=== PATIENT | male | born 1945 | race Caucasian/White ===

== ENCOUNTER 2020-01-19 09:40 | Inpatient (IN) | payer OTHER, MEDICARE ==
--- NOTE | 2020-01-19 11:56 | R.PREADM ---
SCREENING DATE AND TIME 01/19/2020 10:01 (CDT) ANTICIPATED REHAB ADMISSION DATE 01/21/2020 REFERRING FACILITY [facility] REFERRAL DATE AND TIME 01/19/2020 10:01 (CDT) ACUTE ADMIT DATE 01/10/2020 Previous Rehabilitation(s): No. 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 Eduardo Bajwa M.D. MR# [id number] NAME JUAN DIEGO OLIVEIRA ADDRESS [address] [place] [address] PHONE [facility] [id number] DATE OF 1945 AGE 74 SSN# [id number] GENDER male MARITAL STATUS RACE white PREF. LANGUAGE (IF NON-WOLOF) . Storeroom Supervisor is needed [facility] 01 - Home (private home/apt. board/care, assisted living, detention, transitional living) HOME TYPE AND DETAILS Type of home: single family house # of levels in the residence: 1 # of steps within the residence: 0 # of steps to enter the residence: 0 PRE-HOSPITAL LIVING WITH Family/Relatives FAMILY SUPPORT Yes PRIMARY FAMILY CONTACT NAME Pura George PRIMARY FAMILY CONTACT PHONE [phone] PHONE PRIMARY FAMILY CONTACT ON ADM.? no IS PRIMARY FAMILY CONTACT AUTH. REP.? no 1ST EMERGENCY CONTACT Pura George 1ST CONTACT PHONE [phone] PHONE 1ST CONTACT ON ADM. no IS 1ST CONTACT AUTH. REP.? no PHONE 2ND CONTACT ON ADM.? no PATIENT EMPLOYMENT STATUS Retired (for age) PATIENT EMPLOYER No Employer PAYOR INFORMATION: 1ST PAYOR NAME Medicare 1ST PAYOR PHONE 1ST PAYOR UPDATE DUE 01/19/2020 1ST PAYOR INJURY/ILLNESS DUE TO ACCIDENT? No ANOTHER [employer]IANCE PARTY RESPONSIBLE? No PRIMARY REHAB/ACUTE DIAGNOSIS: CABG ONSET DATE 01/19/2020 REHAB IMPAIRMENT CATEGORY (BONNY): 00 No BONNY does NOT meet 60% rule PRIMARY DIAGNOSIS-RELATED SURGERIES: BLADDER BIOPSY CHOLECYSTECTOMY TONSILLECTOMY SUMMARY OF ACUTE HOSPITALIZATION: Pt. is a 74 yo Right-handed white male. On 01/19/2020 he was admitted to [facility] with diagnosis CABG. His impairment category is Cardiac 09 - Select group. Pre-morbidly, Pt. was independent/mod-I in Balance, Self-Care, Communication, Endurance, Transfers Co ntrol, Social Cognition, Sphincter Control, Safety Awareness, and Locomotion; and he had good Safety Awareness, Balance, Social Cognition, Communication, Self-Care, and Endurance. Currently, he has deficits of Endurance, Self-Care, Sphincter Control, Transfers Control, Social Cogn ition, Safety Awareness, Locomotion, and Communication. Pt. is now referred to [facility] for acute in-patient rehabilitation in order to maximize patient's functional independence in activities of daily living, strength, ROM, and mobi lity. Patient has realistic goal of being discharged at assistance level 2-maxA to reside at Home with Fam amrik/Relatives. Juan Diego Joaquin is a 74 year old male that lives by his self independently next door to his family. He has no stairs to enter his home. He was independently living at home an d doing things for himself before having his surgery. He has tons of family support for when he goes home. He has a history of cancer, diabetes mellitus and hypertension. He was admitted to the hospital preparing for CABG last week at [facility]. Patient denied any current chest pain or shortness of breath, he denied any fever or upper respiratory tract symptoms. Patient has been admitted at [facility] and is hemodynamically stable with relatively stable labs. He is now medically stable but in need of 24 hour nursing, doctor supervision and oversight while receiving active and ongoing participate in 3 hours of therapy a day/15 hours per week and receive care with intensive interdisciplinary approach. PAST MEDICAL HISTORY CANCER DIABETES MELLITUS HYPERTENSION PAST SURGICAL HISTORY: BLADDER BIOPSY CHOLECYSTECTOMY TONSILLECTOMY MEDICATION ALLERGIES: CIPROFLOXACIN PEN (PENICILLINS) ENVIRONMENTAL ALLERGIES: - Substance Allergies None Known - Other Allergies None Known CODE STATUS: Full code WEIGHT/HEIGHT/BMI: WEIGHT 267 lbs HEIGHT 5' 7" BMI 41.8 DIET: - Diet Type Regular - Diet - Solid Texture Regular - Diet - Liquid Texture Regular - Tube Feed N/A SKIN DIAGRAM: Incision on Chest; extent - small; stage - NS(Not Stageable). Treatment - Per Physician's Orders. REVIEW OF SYSTEMS: - Gen Alert and awake Sitting in chair No apparent distress Oriented to: person, time, and place - Vital Signs Temperature: 97.9 F SBP/DBP: 121/73 Pulse: 76 Resp: 20 Vital signs stable, afebrile - CVS RRR VITAL SIGNS Temperature: 97.9 F SBP/DBP: 121/73 Pulse: 76 Resp: 20 Vital signs stable, afebrile MEDICATIONS/TREATMENT: Other- See attached MAR (Medication Administration Record). CURRENT SPHINCTER CONTROL: Pre-hospital bladder status: continent # of bladder accidents in the last 7 days prior to screenin Pre-hospital bowel status: continent # of bowel accidents in the last 7 days prior to screenin Last Bowel Movement Date: 01/19/2020 CURRENT LOCOMOTION STATUS: distance walked 3 feet DETAILED CURRENT FUNCTIONAL STATUS: - Bladder accident frequency: Ind - No accidents in the past 7 days - Bowel accident frequency: Ind - No accidents in the past 7 days - Walking score based on distance walked: 0(N/A) - Wheelchair score based on distance traveled: 1(<=50ft) QI SCORES: - Self-Care A. Eating 06-Independent B. Oral hygiene 01-Dependent C. Toileting hygiene 02-Substantial/maximal assistance E. Shower/bathe self 02-Substantial/maximal assistance F. Upper body dressing 03-Partial/moderate assistance G. Lower body dressing 88-Not attempted due to medical condition or safety concerns H. Putting on/taking off footwear 03-Partial/moderate assistance - Mobility A. Roll left and right 04-Supervision or touching assistance B. Sit to lying 03-Partial/moderate assistance C. Lying to sitting on side of bed 03-Partial/moderate assistance D. Sit to stand 02-Substantial/maximal assistance E. Chair/aif-lm-srlka transfer 02-Substantial/maximal assistance F. Toilet transfer 02-Substantial/maximal assistance G. Car transfer 88-Not attempted due to medical condition or safety concerns I. Walk 10 feet 88-Not attempted due to medical condition or safety concerns J. Walk 50 feet with two turns 88-Not attempted due to medical condition or safety concerns K. Walk 150 feet 88-Not attempted due to medical condition or safety concerns L. Walking 10 feet on uneven surfaces 88-Not attempted due to medical condition or safety concerns M. 1 step (curb) 88-Not attempted due to medical condition or safety concerns N. 4 steps 88-Not attempted due to medical condition or safety concerns O. 12 steps 88-Not attempted due to medical condition or safety concerns P. Picking up object 06-Independent R. Wheel 50 feet with two turns 88-Not attempted due to medical condition or safety concerns S. Wheel 150 feet 88-Not attempted due to medical condition or safety concerns - Bladder and Bowel Bladder continence 0-Always continent Bowel continence 0-Always continent - Endurance Fair - Balance Poor - Safety Awareness Fair CURRENT [facility]. DEFICITS: Mobility, Endurance, Balance, Safety Awareness, and Self-Care CURRENT / PREVIOUS ASSISTIVE DEVICES: 3-in-1 Commode [facility] Bed Oxygen Rolling Walker Shower Chair Tub Bench Wheelchair HISTORY OF FALLS. HAS THE PATIENT HAD TWO OR MORE FALLS IN THE PAST YEAR OR ANY FALL WITH INJURY IN T HE PAST YEAR?: No PRIOR SURGERY. DID THE PATIENT HAVE MAJOR SURGERY DURING THE 100 DAYS PRIOR TO ADMISSION?: Yes THERAPY NOTES FROM ACUTE CARE: Attached. SPECIAL NEEDS: - Safety Concerns Skin breakdown precautions needed due to skin breakdown risk PATIENT NEEDS ACTIVE AND ONGOING THERAPEUTIC INTERVENTION OF MULTIPLE THERAPY DISCIPLINES, INCLUDING: - Dietary and Nutrition Adequate Nutrition. Nutritional Education. Nutritional Supplements. PATIENT NEEDS CLOSE MEDICAL SUPERVISION BY A REHABILITATION PHYSICIAN FOR: Coordination of Treatment Team Post-Op Complications Wound Care PATIENT REQUIRES 24X7 REHAB NURSING FOR MEDICAL AND FUNCTIONAL MGT. OF THE FOLLOWING DEFICITS: Disease Management Medication Management Patient/Family Education Providing Safe Environment Skin Integrity PATIENT REQUIRES INTENSIVE, COORDINATED INTERDISCIPLINARY APPROACH TO REHAB: Arranging Home Equipment/Services Discharge Planning Family Intervention/Training Staff Software Engineer/Case Management PATIENT REHAB POTENTIAL: Stephenie OLIVEIRA is able and expected to receive 3 hours of individualized therapy daily on at least 5 of e very 7 days Stephenie OLIVEIRA's prognosis for significant practical improvement within a reasonable period of time appea rs Fair Expected level of measurable improvement will be of a practical value to Stephenie OLIVEIRA's functional capa city or adaptations to impairments Has a viable Discharge Plan Medically appropriate; condition is sufficiently stable to participate in intensive rehab program DISCHARGE PLAN: - Estimated Length of Stay (days) 14. - Consensus on plan Discharge plan has been discussed with primary caregiver. Patient/Family is in agreement with the melly n. Primary caregiver is in agreement with the plan. - Patient/Family Goals Return home with assistance. - Planned Living Setting Upon Discharge Home, to live with Family/Relatives. Transitional Living. RECOMMENDED CARE LEVEL: IRF RECOMMENDATION DETAILS: Recommended Admission to Comprehensive Rehabilitation Program to Increase Functional [place] SCREENER'S COMPLETENESS CONFIRMATION: - Screening Confirmation The patient data collection on this preadmission screening form is finished PHYSICIANS REVIEW AND ADMISSION DETERMINATION Admit - Based on my review of the Pre-Admission Screening results, in my medical judgment and experie nce, I concur with the findings and recommend admission to [facility], as this patient requires an IRF level of care. SIGNATURE PANEL: Clinical Liaison - [electronically] signed by Ryland Salazar on 01/19/2020 at 11:05 (CDT) Overhead Distribution Engineer - [electronically] signed by Margarita Wolfe RN on 01/19/2020 at 11:55 (CDT) Physician Reviewer - /___/ :___
--- OUTSIDE RECORDS SUMMARY | 2020-01-19 15:54 | XMS REPORT ---
:1945 [facility] Address [address] [place] [address] Dr. Bell [address] [place] [id number] Care Team Providers Name Role Phone Unavailable Unavailable Unavailable Problems This patient has no known problems. Allergies, Adverse Reactions, Alerts This patient has no known allergies or adverse reactions. Medications This patient has no known medications.
--- OUTSIDE RECORDS SUMMARY | 2020-01-19 15:55 | XMS REPORT | Summary of Care ---
:1945 Author Organization [facility] Address [address] [place] [address] Care Team Providers Name Role Phone Franklyn Garay Primary Care Provider Encounter Details Date Type Department Care Team Description 01/05/2020 Orders Only [facility] Doctor Unassigned, No 301 [facility] [place] [address] [address] [place] [address] Allergies Active Allergy Reactions Severity Noted Date Comments Ciprofloxacin Rash 09/17/2019 Penicillins Rash 09/17/2019 documented as of this encounter (statuses as of 01/05/2020) Medications Medication Sig Dispensed Refills Start Date End Date Status finasteride 5 mg 0 08/25/2019 Active tablet gemfibrozil 600 mg 0 08/25/2019 Active tablet glipiZIDE 10 mg 0 08/25/2019 Active tablet LANTUS U-100 INSULIN 0 08/25/2019 Active 100 unit/mL solution lisinopril-hydrochlor 0 08/25/2019 Active othiazide 20-25 mg per tablet metFORMIN 500 mg 0 08/25/2019 Active tablet omeprazole 20 mg 0 08/25/2019 Active capsule tamsulosin 0.4 mg 24 0 08/25/2019 Active hr capsule flu vaccine 66 yrs PHARMACIST 0 07/30/2019 Active and up 180 mcg/0.5 mL ADMINISTERED IMMUNIZATION ADMINISTERED AT TIME OF DISPENSING aspirin 81 mg EC Take 1 tablet by 0 10/18/2019 Active tabletIndications: mouth daily. Aortic stenosis, moderate atorvastatin 20 mg Take 1 tablet by 90 tablet 3 10/18/2019 Active tabletIndications: mouth daily. Coronary artery calcification carvediloL 6.25 mg Take 1 tablet by 60 tablet 3 12/15/2019 Active tabletIndications: mouth 2 (two) times Essential daily with meals. hypertension documented as of this encounter (statuses as of 01/05/2020) Active Problems Not on filedocumented as of this encounter (statuses as of 01/05/2020) Immunizations Name Administration Dates Next Due Influenza High Dose 08/03/2019 documented as of this encounter Social History Tobacco Use Types Packs/Day Years Used Date Former Smoker Cigarettes 41 Quit: 11/03/2001 Smokeless Tobacco: Never Used Sex Assigned at Date Recorded Not on file Job Start Date Occupation Industry Not on file Not on file Not on file Travel History Travel Start Travel End No recent travel history available. documented as of this encounter Last Filed Vital Signs Not on filedocumented in this encounter Plan of Treatment Date Type Specialty Care Team Description 01/05/2020 Appointment Cardiac Pocket Setter Lockstitch Provider, Allyson Cardiac 2, Clc Cardiac Proc Room 02/16/2020 Office Visit Cardiology Chary Martinez MD [address] [place] [address] [phone] 04/18/2020 Office Visit Cardiology Chary Martinez MD [address] [place] [address] [place] [address] [phone] Health Maintenance Due Date Last Done Comments HEPATITIS C (HCV) SCREEN 1945 URINE MICROALBUMIN 1956 DTaP,Tdap,and Td Vaccines (1 - Tdap) 1957 Zoster Recombinant Vaccine (SHINGRIX) (1 of 2) 1996 Medicare Wellness Visit 2011 PNEUMOCOCCAL VACCINES 65+ (1 of 2 - PCV13) 2011 HgA1C 05/25/2020 11/25/2019 EYE EXAM 07/04/2020 07/04/2019 FOOT EXAM 11/24/2020 11/24/2019 CREATININE (SERUM) 11/25/2020 11/25/2019 LDL-C 11/25/2020 11/25/2019 COLONOSCOPY 11/03/2027 11/03/2017 INFLUENZA VACCINE Completed 08/03/2019 documented as of this encounter Procedures Procedure Name Priority Date/Time Associated Diagnosis Comments ASSIGNMENT OF BENEFITS Routine 01/05/2020 5:26 AM 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 Medicare A & B esent [id number] DEO [place]RIQUE[place] [phone] [facility] [id number] 2018-Pre [address] Medicare HEALTHCARE HEALTHCARE sent [id number] Supplement MEDICARE [place] SUPPLEMENT DEO MALAGON [id number] documented as of this encounter
--- OUTSIDE RECORDS SUMMARY | 2020-01-19 15:55 | XMS REPORT | Summary of Care ---
:1945 Author Organization [facility] Address [address] [place] [address] Care Team Providers Name Role Phone Franklyn Garay Primary Care Provider Encounter Details Date Type Department Care Team Description 11/09/2018 Orders Only [facility] Doctor Unassigned, No 301 [facility] [place] [address] [address] [place] [address] Allergies Active Allergy Reactions Severity Noted Date Comments Ciprofloxacin Rash 09/17/2019 Penicillins Rash 09/17/2019 documented as of this encounter (statuses as of 11/17/2019) Medications No known medicationsdocumented as of this encounter (statuses as of 11/17/2019) Active Problems Not on filedocumented as of this encounter (statuses as of 11/17/2019) Social History Tobacco Use Types Packs/Day Years Used Date Never Assessed Sex Assigned at Date Recorded Not on file Job Start Date Occupation Industry Not on file Not on file Not on file Travel History Travel Start Travel End No recent travel history available. documented as of this encounter Last Filed Vital Signs Not on filedocumented in this encounter Plan of Treatment Date Type Specialty Care Team Description 11/18/2019 Office Visit Pulmonary Disease Rupa Winn DO [address] [place] [phone] 12/15/2019 Office Visit Cardiology Chary Martinez MD [address] [place] [address] [place] [address] [phone] 04/18/2020 Office Visit Cardiology Chary Martinez MD [address] [place] [address] [place] [address] [phone] Health Maintenance Due Date Last Done Comments HEPATITIS C (HCV) SCREEN 1945 HgA1C 1946 CREATININE (SERUM) 1956 EYE EXAM 1956 LDL-C 1956 URINE MICROALBUMIN 1956 DTaP,Tdap,and Td Vaccines (1 - Tdap) 1957 FOOT EXAM 1964 COLONOSCOPY 1996 Zoster Recombinant Vaccine (SHINGRIX) (1 of 2) 1996 Medicare Wellness Visit 2011 PNEUMOCOCCAL VACCINES 65+ (1 of 2 - PCV13) 2011 INFLUENZA VACCINE Completed 08/03/2019 documented as of this encounter Procedures Procedure Name Priority Date/Time Associated Diagnosis Comments HEART STATION Routine 11/09/2018 12:01 AM PHARMACOLOGIC WORKSHEET PHYSICAL BIOCHEMIST (NUCLEAR EKG) documented in this encounter Results Not on filedocumented in this encounter Insurance Payer Benefit Plan / Subscriber ID Effective Phone Address Type Group Dates MEDICARE MEDICARE PART xxxxxxxxxxx 2011-Pr [phone] [address] Medicare A & B esent [id number] DEO ENRIQUE[place] [phone] [facility] [id number] 2018-Pre [address] Medicare HEALTHCARE HEALTHCARE sent [id number] Supplement MEDICARE [place] SUPPLEMENT [place]ON [id number] documented as of this encounter
--- OUTSIDE RECORDS SUMMARY | 2020-01-19 15:55 | XMS REPORT | Summary of Care ---
:1945 Author Organization [facility] Address [address] [place] [address] Care Team Providers Name Role Phone Franklyn Garay Primary Care Provider Reason for Referral (Routine) Status Reason Specialty Diagnoses / Procedures Referred By Referred To Contact Contact New Request Cardiology Diagnoses Essential hypertension Coronary artery calcification Hyperlipidemia, unspecified hyperlipidemia type Obesity (BMI 30-39.9) WOLFE (dyspnea on exertion) Aortic stenosis, moderate Chary Martinez, Type 2 diabetes mellitus without complication, without long-term current use of insulin Abnormal nuclear stress test MD Procedures Cardiac Cath Request for Service (Cardiology Use Only) [address] [place] [address] [address] [place] [address] Reason for Visit Reason Comments Follow-up Testing follow up Encounter Details Date Type Department Care Team Description 12/15/2019 Office Visit [facility] Chary Martinez MD WOLFE (dyspnea on exertion) (Primary Dx); Cardiology- [address] Essential hypertension; [address] [place] [address] Coronary artery calcification; [facility] [address] Hyperlipidemia, unspecified hyperlipidemia type; [place] [address] Obesity (BMI 30-39.9); [address] Aortic stenosis, moderate; [phone] Type 2 diabetes mellitus without complication, without long-term current use of insulin; Abnormal nuclear stress test; Abnormal coagulation profile Allergies Active Allergy Reactions Severity Noted Date Comments Ciprofloxacin Rash 09/17/2019 Penicillins Rash 09/17/2019 documented as of this encounter (statuses as of 12/15/2019) Medications Medication Sig Dispensed Refills Start Date End Date Status genaroide 5 mg 0 08/25/2019 Active tablet gemfibrozil [...] as of this encounter (statuses as of 12/15/2019) Active Problems Not on filedocumented as of this encounter (statuses as of 12/15/2019) Immunizations Name Administration Dates Next Due Influenza [...] of this encounter Last Filed Vital Signs Vital Sign Reading Time Taken Comments Blood Pressure 167/89 12/15/2019 9:22 AM CASE RESOURCE MANAGER Pulse 98 12/15/2019 9:18 AM CASE RESOURCE MANAGER Temperature - - Respiratory Rate 18 12/15/2019 9:18 AM CASE RESOURCE MANAGER Oxygen Saturation 95% 12/15/2019 9:18 AM CASE RESOURCE MANAGER Inhaled Oxygen Concentration - - Weight 114.3 kg (251 lb 14.4 oz) 12/15/2019 9:18 AM CASE RESOURCE MANAGER Height 170.2 cm (5' 7") 12/15/2019 9:18 AM CASE RESOURCE MANAGER Body Mass Index 39.45 12/15/2019 9:18 AM CASE RESOURCE MANAGER documented in this encounter Progress Notes Chary Martinez MD - 12/15/2019 9:20 AM CST CARDIOLOGY CLINIC NOTE 12/15/2019 Reason for Referral/Presenting Complaint: WOLFE, aortic stenosis, coronary artery calcification PCP: Franklyn Garay History of Present Illness: Abdirashid Damon is a 74 years old male with history of obesity, HTN, HLD, DM, former smoker, and COPD. For the past year he has noted progressive SOB with activity such as walking 100 yards. Gained 10 lbs in 1 year. No edema or orthopnea. Has been treated for COPD. Taking ASA. CT chest showed coronary artery calcification. NO chest pain. Used to take statins but not only on fibrates. Nuclear stress test was of poor quality. Possible small defect. LVEF in 40%. His BP has been elevated. LDL 18. Cardiovascular testing: EKG: Normal sinus rhythm. Normal EKG. Echocardiogram: There is mild concentric left ventricular hypertrophy. Ejection Fraction=55-60%. Diastolic function is impaired relaxation. The left ventricular wall motion is normal. Moderate valvular aortic stenosis. Nuclear 11/2019 A small and mild partially reversible anterior perfusion defect, likely attenuation artifact although ischemia cannot be completely excluded. Borderline reduced ejection fraction with borderline global hypokinesis. Review of Systems: General: (-) fever, (-) chills, (-) weight change, (-) dizziness, (-) fatigue Skin: (-) rash HEENT: (-) headache, (-) change in vision Neck: (-) difficulty swallowing Heme: negative Resp: (-) cough, (+) dyspnea on exertion Cardio: (-) chest pain, (-) palpitations, (-) syncope GI: (-) vomiting, (-) diarrhea : negative Endo: (+) diabetes, (-) thyroid disease Neuro: (-) numbness, (-) tingling, (-) weakness Back: (-) pain SHARON: (-) muscle pain, (-) claudication Psych: (-) anxiety, (-) depression Past Medical History: Past Medical History: Diagnosis Date Cancer Diabetes mellitus Hypertension Current Medications: Current Outpatient Medications Medication Sig Dispense Refill carvediloL 6.25 mg tablet Take 1 tablet by mouth 2 (two) times daily with meals. 60 tablet 3 aspirin 81 mg EC tablet Take 1 tablet by mouth daily. atorvastatin 20 mg tablet Take 1 tablet by mouth daily. 90 tablet 3 finasteride 5 mg tablet gemfibrozil 600 mg tablet glipiZIDE 10 mg tablet LANTUS U-100 INSULIN 100 unit/mL solution lisinopril-hydrochlorothiazide 20-25 mg per tablet metFORMIN 500 mg tablet omeprazole 20 mg capsule tamsulosin 0.4 mg 24 hr capsule flu vaccine 65 yrs and up 180 mcg/0.5 mL PHARMACIST ADMINISTERED IMMUNIZATION ADMINISTERED AT TIME OF DISPENSING 0 No current facility-administered medications for this visit. Social History: Social History Socioeconomic History Marital status: Spouse name: Not on file Number of children: Not on file Years of education: Not on file Highest education level: Not on file Occupational History Not on file Social Needs Financial resource strain: Not on file Food insecurity: Worry: Not on file Inability: Not on file Transportation needs: Medical: Not on file Non-medical: Not on file Tobacco Use Smoking status: Former Smoker Years: 40.00 Types: Cigarettes Last attempt to quit: 11/03/2001 Years since quittin.1 Smokeless tobacco: Never Used Substance and Sexual Activity Alcohol use: Not on file Drug use: Not on file Sexual activity: Not on file Lifestyle Physical activity: Days per week: Not on file Minutes per session: Not on file Stress: Not on file Relationships Social connections: Talks on phone: Not on file Gets together: Not on file Attends episcopalian service: Not on file Active member of club or organization: Not on file Attends meetings of clubs or organizations: Not on file Relationship status: Not on file Intimate partner violence: Fear of current or ex partner: Not on file Emotionally abused: Not on file Physically abused: Not on file Forced sexual activity: Not on file Other Topics Concern Not on file Social History Narrative Not on file Family History Family History Problem Relation Age of Onset [place] (myocardial infarction) Mother 60s Physical Examination: BP (!) 167/89 | Pulse 98 | Resp 18 | Ht 5' 7" (1.702 m) | Wt 251 lb 14.4 oz (114.3 kg) | SpO2 95% | BMI 39.45 kg/m Constitutional: alert and oriented x 3 (person, place and date/time); no apparent distress, obese ENT: normocephalic atraumatic, supple, no lymphadenopathy, no bruits, no JVD Lungs: clear to auscultation bilaterally Cardiovascular: S1, S2 normal, regular; 2/6 SM RUSB GI: soft; non-tender; non-distended; normoactive bowel sounds : not examined Musculoskeletal: Extremities: no clubbing, cyanosis, or edema Skin: no rashes Neuro: no focal deficits Assessment/Plan: ICD-10-CM ICD-9-CM 1. WOLFE (dyspnea on exertion) R06.09 786.09 2. Essential hypertension I10 401.9 3. Coronary artery calcification I25.10 414.00 I25.84 414.4 4. Hyperlipidemia, unspecified hyperlipidemia type E78.5 272.4 5. Obesity (BMI 30-39.9) E66.9 278.00 6. Aortic stenosis, moderate I35.0 424.1 7. Type 2 diabetes mellitus without complication, without long-term current use of insulin E11.9 250.00 8. Abnormal nuclear stress test R94.39 794.39 WOLFE--could be multifactorial including obesity, COPD, aortic stenosis, diastolic dysfunction, etc. Significant risk factors--former smoking, age, HTN, HLD, DM, etc. Lexiscan nuclear stress test is of poor quality--questionable ischemia. Discussed [facility] for definitive diagnosis. Risk and benefit discussed. Will schedule. Moderate aortic stenosis--Will get ECHO annually. Currently no indication for valve intervention. Coronary artery calcification--Will continue ASA 81 mg daily. Recommend to add lipitor 20 mg daily. HTN--controlled. Continue lisinopril/HCTZ. Obesity--discussed weight loss. HLD--On gemfibrozil. Consider change to fenofibrate if start on lipitor. Patient was counseled for lifestyle modifications including: diet, exercise and weight loss. RTC after [facility] Chary Martinez MD, FACLULI [employer] Band Director, Division of Cardiology [facility] documented in this encounter Plan of Treatment Date Type Specialty Care Team Description 02/16/2020 Office Visit Cardiology Chary Martinez MD [address] [place] [address] [place] [id number] 04/18/2020 Office Visit Cardiology Chary Martinez MD [address] [place] [address] [address] [place], [place] [id number] Name Type Priority Associated Diagnoses Order Schedule aPTT LAB Routine Abnormal coagulation 1 Occurrences profile starting 12/15/2019 Essential hypertension until 03/16/2020 Coronary artery calcification Hyperlipidemia, unspecified hyperlipidemia type Obesity (BMI 30-39.9) WOLFE (dyspnea on exertion) Aortic stenosis, moderate Type 2 diabetes mellitus without complication, without long-term current use of insulin Abnormal nuclear stress test BASIC METABOLIC LAB Routine Essential hypertension 1 Occurrences PANEL (NA, K, CL, Coronary artery starting 12/15/2019 CO2, GLUCOSE, BUN, calcification until 03/16/2020 CREATININE, CA) Hyperlipidemia, unspecified hyperlipidemia type Obesity (BMI 30-39.9) WOLFE (dyspnea on exertion) Aortic stenosis, moderate Type 2 diabetes mellitus without complication, without long-term current use of insulin Abnormal nuclear stress test PROFILE / HEMOGRAM LAB Routine Essential hypertension 1 Occurrences Coronary artery starting 12/15/2019 calcification until 03/14/2020 Hyperlipidemia, unspecified hyperlipidemia type Obesity (BMI 30-39.9) WOLFE (dyspnea on exertion) Aortic stenosis, moderate Type 2 diabetes mellitus without complication, without long-term current use of insulin Abnormal nuclear stress test LIPID PANEL LAB Routine Essential hypertension 1 Occurrences (79435)(TOTAL Coronary artery starting 12/15/2019 CHOLESTEROL, calcification until 03/16/2020 TRIGLYCERIDES, HDL) Hyperlipidemia, unspecified hyperlipidemia type Obesity (BMI 30-39.9) WOLFE (dyspnea on exertion) Aortic stenosis, moderate Type 2 diabetes mellitus without complication, without long-term current use of insulin Abnormal nuclear stress test PROTHROMBIN TIME / LAB Routine Essential hypertension 1 Occurrences INR Coronary artery starting 12/15/2019 calcification until 03/16/2020 Hyperlipidemia, unspecified hyperlipidemia type Obesity (BMI 30-39.9) WOLFE (dyspnea on exertion) Aortic stenosis, moderate Type 2 diabetes mellitus without complication, without long-term current use of insulin Abnormal nuclear stress test EKG-12 LEAD ROUTINE HEART STATION Routine Essential hypertension 1 Occurrences Coronary artery starting 12/15/2019 calcification until 03/14/2020 Hyperlipidemia, unspecified hyperlipidemia type Obesity (BMI 30-39.9) WOLFE (dyspnea on exertion) Aortic stenosis, moderate Type 2 diabetes mellitus without complication, without long-term current use of insulin Abnormal nuclear stress test Health Maintenance Due Date Last Done Comments DTaP,Tdap,and Td Vaccines (1 - 12/17/2019 Postponed from 1957 Tdap) (Alternative Guidelines) HEPATITIS C (HCV) SCREEN 12/17/2019 Postponed from 1945 (Alternative Guidelines) Medicare Wellness Visit 12/17/2019 Postponed from 2011 (Alternative Guidelines) PNEUMOCOCCAL VACCINES 65+ (1 of 2 12/17/2019 Postponed from 2011 - PCV13) (Alternative Guidelines) URINE MICROALBUMIN 12/17/2019 Postponed from 1956 (Alternative Guidelines) Zoster Recombinant Vaccine 12/17/2019 Postponed from 1996 (SHINGRIX) (1 of 2) (Alternative Guidelines) HgA1C 05/25/2020 11/25/2019 EYE EXAM 07/04/2020 07/04/2019 FOOT EXAM 11/24/2020 11/24/2019 CREATININE (SERUM) 11/25/2020 11/25/2019 LDL-C 11/25/2020 11/25/2019 COLONOSCOPY 11/03/2027 11/03/2017 INFLUENZA VACCINE Completed 08/03/2019 documented as of this encounter Results Not on filedocumented in this encounter Visit Diagnoses Diagnosis WOLFE (dyspnea on exertion) - Primary Other dyspnea and respiratory abnormality Essential hypertension Unspecified essential hypertension Coronary artery calcification Hyperlipidemia, unspecified hyperlipidemia type Obesity (BMI 30-39.9) Obesity, unspecified Aortic stenosis, moderate Aortic valve disorders Type 2 diabetes mellitus without complication, without long-term current use of insulin Abnormal nuclear stress test Other nonspecific abnormal cardiovascular system function study Abnormal coagulation profile Abnormal coagulation profile documented in this encounter Insurance Payer Benefit Plan / Subscriber ID Effective Phone Address Type Group Dates MEDICARE MEDICARE PART xxxxxxxxxxx 2011-Pr [phone] [address] Medicare A & B esent [id number] [place] [phone] [facility] [id number] 2018-Pre [address] Medicare HEALTHCARE HEALTHCARE sent [id number] Supplement MEDICARE [place] SUPPLEMENT [place] [id number] documented as of this encounter
--- OUTSIDE RECORDS SUMMARY | 2020-01-19 15:55 | XMS REPORT | Summary of Care ---
:1945 Author Organization [facility] Address [address] [place] [address] Care Team Providers Name Role Phone Franklyn Garay Primary Care Provider Encounter Details Date Type Department Care Team Description 11/25/[address] [facility] Doctor Unassigned, No [address] [facility] [place] [place] [address] [address] [place] [address] Allergies Active Allergy Reactions Severity Noted Date Comments Ciprofloxacin Rash 09/17/2019 Penicillins Rash 09/17/2019 documented as of this encounter (statuses as of 11/30/2019) Medications Medication Sig Dispensed Refills Start Date [...] Active tabletIndications: mouth daily. Coronary artery calcification documented as of this encounter (statuses as of 11/30/2019) Active Problems Not on filedocumented as of this encounter (statuses as of 11/30/2019) Immunizations Name Administration Dates Next Due Influenza [...] Treatment Date Type Specialty Care Team Description 12/15/2019 Office Visit Cardiology Chary Martinez MD [address] [facility] [address] [place] [id number] 04/18/2020 Office Visit Cardiology Chary Martinez MD [address] [address] [phone] Health Maintenance Due Date Last Done Comments HEPATITIS C (HCV) SCREEN 1945 HgA1C 1947 CREATININE (SERUM) 1956 EYE EXAM 1956 LDL-C 1956 URINE MICROALBUMIN 1956 DTaP,Tdap,and Td Vaccines (1 - Tdap) 1957 FOOT EXAM 1964 Zoster Recombinant Vaccine (SHINGRIX) (1 of 2) 1996 Medicare Wellness Visit 2011 PNEUMOCOCCAL VACCINES 65+ (1 of 2 - PCV13) 2011 COLONOSCOPY 11/03/2027 11/03/2017 INFLUENZA VACCINE Completed 08/03/2019 documented as of this encounter Procedures Procedure Name Priority Date/Time Associated Diagnosis Comments EXTERNAL PROVIDER - ADC Routine 11/25/2019 12:01 AM CARDIOLOGY MULTICRAFT OPERATOR documented in this encounter Results Not on filedocumented in this encounter Insurance Payer Benefit Plan / Subscriber ID Effective Phone Address Type Group Dates MEDICARE MEDICARE PART xxxxxxxxxxx 2011-Pr [phone] [address] Medicare A & B esent [id number] [place] [id number] [facility] [id number] 2018-Pre [address] Medicare HEALTHCARE HEALTHCARE sent [id number] Supplement [facility] [place] [id number] documented as of this encounter
--- OUTSIDE RECORDS SUMMARY | 2020-01-19 15:55 | XMS REPORT | Summary of Care ---
:1945 Author Organization [facility] Address [address] [place] [address] Care Team Providers Name Role Phone JarrodFranklyn nunez Primary Care Provider Reason for Visit Reason Comments Results stress test Appointment Encounter Details Date Type Department Care Team Description 11/16/2019 Telephone [facility] Chary Martinez MD Results (stress test); Cardiology- [address] Appointment [address] [place] [phone] Allergies Active Allergy Reactions Severity Noted Date Comments Ciprofloxacin Rash 09/17/2019 Penicillins Rash 09/17/2019 documented as of this encounter (statuses as of 11/16/2019) Medications Medication Sig Dispensed Refills Start Date End Date Status SYMBICORT 160-4.5 INHALE 2 PUFFS PO 5 09/10/2019 Active mcg/actuation inhaler BID finasteride 5 mg 0 08/25/2019 Active tablet [...] as of this encounter (statuses as of 11/16/2019) Active Problems Not on filedocumented as of this encounter (statuses as of 11/16/2019) Immunizations Name Administration Dates Next Due Influenza [...] Office Visit Pulmonary Disease Rupa Winn DO [address] [place] [phone] 12/15/2019 Office Visit Cardiology Chary Martinez MD [address] [place] [address] [place] [address] [phone] 04/18/2020 Office Visit Cardiology Chary Martinez MD [address] [place] [address] [place] [address] Health Maintenance Due Date Last Done Comments [...] BOX Medicare A & B esent [id number] [place] [id number] [facility] [id number] 2018-Pre [address] Medicare HEALTHCARE HEALTHCARE sent [id number] Supplement MEDICARE [place] SUPPLEMENT [place] [id number] documented as of this encounter
--- OUTSIDE RECORDS SUMMARY | 2020-01-19 15:55 | XMS REPORT | Summary of Care ---
:1945 Author Organization [facility] Address [address] [place] [address] Care Team Providers Name Role Phone Franklyn [...] Cath Request for Service (Cardiology Use Only) [address] [place] [address] [address] [place] [address] Reason for Visit Reason Comments Follow-up Testing follow up Encounter Details Date Type Department Care Team Description 12/15/2019 Office Visit [facility] Chary Martinez MD WOLFE (dyspnea on exertion) (Primary Dx); Cardiology- [address] Essential hypertension; [address] [place] [address] Coronary artery calcification; [facility] [address] Hyperlipidemia, unspecified hyperlipidemia type; [place] [address] Obesity (BMI 30-39.9); [address] Aortic stenosis, moderate; [phone] Type 2 diabetes mellitus without complication, without [...] Comments Blood Pressure 167/89 12/15/2019 9:22 AM GLASS WASHER Pulse 98 12/15/2019 9:18 AM GLASS WASHER Temperature - - Respiratory Rate 18 12/15/2019 9:18 AM GLASS WASHER Oxygen Saturation 95% 12/15/2019 9:18 AM GLASS WASHER Inhaled Oxygen Concentration - - Weight 114.3 kg (251 lb 14.4 oz) 12/15/2019 9:18 AM GLASS WASHER Height 170.2 cm (5' 7") 12/15/2019 9:18 AM GLASS WASHER Body Mass Index 39.45 12/15/2019 9:18 AM GLASS WASHER documented in this encounter Progress Notes Chary [...] file Gets together: Not on file Attends sikhism service: Not on file Active member of [...] Family History Problem Relation Age of Onset [place] (myocardial infarction) Mother 60s Physical Examination: BP [...] test is of poor quality--questionable ischemia. Discussed [facility] for definitive diagnosis. Risk and benefit discussed. [...] diet, exercise and weight loss. RTC after [facility] Chary Martinez MD, FACLULI [employer] Agent, Division of Cardiology [facility] documented in this encounter Plan of Treatment Date Type Specialty Care Team Description 02/16/2020 Office Visit Cardiology Chary Martinez MD [address] [place] [address] [place] [phone] 04/18/2020 Office Visit Cardiology Chary Martinez MD [address] [place] [address] [address] [place], [place] [phone] Name Type Priority Associated Diagnoses Order Schedule [...] PANEL LAB Routine Essential hypertension 1 Occurrences (88159)(TOTAL Coronary artery starting 12/15/2019 CHOLESTEROL, calcification until [...] BOX Medicare A & B esent [id number] [place] [phone] [facility] [id number] 2018-Pre [address] Medicare HEALTHCARE HEALTHCARE sent [id number] Supplement MEDICARE [place] SUPPLEMENT [place] [id number] documented as of this encounter
--- OUTSIDE RECORDS SUMMARY | 2020-01-19 15:56 | XMS REPORT | Summary of Care ---
:1945 Author Organization [facility] - [facility] Address [address] [place] [address] Care Team Providers Name Role Phone Franklyn Garay Primary Care Provider Encounter Details Date Type Department Care Team Description 01/07/2020 Orders Only [facility] Doctor Unassigned, No [address] [facility] [place] [address] [address] [place] [address] Allergies Active Allergy Reactions Severity Noted Date Comments Ciprofloxacin Rash 09/17/2019 Penicillins Rash 09/17/2019 documented as of this encounter (statuses as of 01/07/2020) Medications Medication Sig Dispensed Refills Start Date End Date Status finasteride 5 mg tablet Take 5 mg by 0 08/25/2019 Active mouth daily. gemfibrozil 600 mg Take 600 mg by 0 08/25/2019 Active tablet mouth 2 (two) times daily before breakfast and dinner. glipiZIDE 10 mg tablet Take 10 mg by 0 08/25/2019 Active mouth 2 (two) times daily before breakfast and dinner. LANTUS U-100 INSULIN 100 inject 55 Units 0 08/25/2019 Active unit/mL solution under the skin 2 (two) times daily. omeprazole 20 mg capsule Take 20 mg by 0 08/25/2019 Active mouth daily. tamsulosin 0.4 mg 24 hr Take 0.4 mg by 0 08/25/2019 Active capsule mouth 2 (two) times daily. aspirin 81 mg EC Take 1 tablet by 0 10/18/2019 Active tabletIndications: mouth daily. Aortic stenosis, moderate atorvastatin 20 mg Take 1 tablet by 90 tablet 3 10/18/2019 Active tabletIndications: mouth daily. Coronary artery calcification metFORMIN 500 mg Take 1 tablet by 60 tablet 0 01/06/2020 Active tabletIndications: Type mouth 2 (two) 2 diabetes mellitus times daily with without complication, meals. unspecified whether fci insulin use, Coronary arteriosclerosis in [place] artery Additional information Patient taking differently: 1,000 mg Oral BID MEALS, Reported on 01/07/2020 11: 27 AM carvediloL 6.25 mg Take 1 tablet by 60 tablet 0 01/06/2020 Active tabletIndications: Essential mouth 2 (two) times hypertension daily with meals. lisinopril-hydrochlorothiazide Take 1 tablet by 30 tablet 0 01/06/2020 Active 20-25 mg per tabletIndications: mouth daily. Type 2 diabetes mellitus without complication, unspecified whether fci insulin use, Coronary arteriosclerosis in [place] artery documented as of this encounter (statuses as of 01/07/2020) Active Problems Problem Noted Date Coronary arteriosclerosis in [place] artery 01/05/2020 documented as of this encounter (statuses as of 01/07/2020) Immunizations Name Administration Dates Next Due Influenza [...] Treatment Date Type Specialty Care Team Description 01/10/2020 Hospital Encounter Kirby Grey MD [address] [place], [place] [id number] 01/11/2020 Anesthesia Event Surgery Gretchen Wan, RN [address] [place] [address] 01/11/2020 Surgery Surgery Vazquez Lopez MD CORONARY ARTERY BYPASS [address] [facility] Feng. GRAFT Feng [address] [place] [address] 02/16/2020 Office Visit Cardiology Chary Martinez MD [address] [place] [address] [address] [place] [address] 04/18/2020 Office Visit Cardiology Chary Martinez MD [address] [place] [address] [address] [place], [place] [phone] Health Maintenance Due Date Last Done Comments HEPATITIS C (HCV) SCREEN 1945 URINE MICROALBUMIN 1956 DTaP,Tdap,and Td Vaccines (1 - Tdap) 1957 Zoster Recombinant Vaccine (SHINGRIX) (1 1996 of 2) Medicare Wellness Visit 2011 PNEUMOCOCCAL VACCINES 65+ (1 of 2 - PCV13) 2011 EYE EXAM 07/04/2020 07/04/2019 HgA1C 07/07/2020 01/05/2020, 11/25/2019 FOOT EXAM 11/24/2020 11/24/2019 LDL-C 11/25/2020 11/25/2019 CREATININE (SERUM) 01/04/2021 01/05/2020, 11/25/2019 COLONOSCOPY 11/03/2027 11/03/2017 INFLUENZA VACCINE Completed 08/03/2019 documented as of this encounter Implants Implanted Type Area Roof Truss Detailer Device Shelf Expiration Model / Identifier Date Serial / Lot Wire WIRE Upper: Mandible documented as of this encounter Procedures Procedure Name Priority Date/Time Associated Diagnosis Comments EXTERNAL PROVIDER Routine 01/07/2020 12:01 AM QUALITY ENGINEERING MANAGER RECORDS documented in this encounter Results Not on filedocumented in this encounter Insurance Payer Benefit Plan / Subscriber ID Effective Phone Address Type Group Dates MEDICARE MEDICARE PART xxxxxxxxxxx 2011-Pr [phone] [address] Medicare A & B esent [id number] [place] [id number] [id number] [id number] 2018-Pre [address] Medicare HEALTHCARE HEALTHCARE sent [id number] Supplement MEDICARE [place] SUPPLEMENT [place] [id number] documented as of this encounter
--- OUTSIDE RECORDS SUMMARY | 2020-01-19 15:56 | XMS REPORT | Summary of Care ---
:1945 Author Organization [facility] - [facility] Address [address] [place] [address] Care Team Providers Name Role Phone Franklyn Garay Primary Care Provider Reason for Visit Reason Comments Transition Of Care Encounter Details Date Type Department Care Team Description 01/07/2020 Transition of Care [facility] Amanda Hogan RN Transition Of Care [address] [id number] Allergies Active Allergy Reactions Severity Noted Date Comments Ciprofloxacin Rash 09/17/2019 Penicillins Rash 09/17/2019 documented as of this encounter (statuses as of 01/07/2020) Medications Medication Sig Dispensed Refills Start Date End Date Status finasteride 5 mg tablet 0 08/25/2019 Active gemfibrozil 600 mg tablet 0 08/25/2019 Active glipiZIDE 10 mg tablet 0 08/25/2019 Active LANTUS U-100 INSULIN 100 inject 55 Units 0 08/25/2019 Active unit/mL solution under the skin 2 (two) times daily. omeprazole 20 mg capsule 0 08/25/2019 Active tamsulosin 0.4 mg 24 hr 0 08/25/2019 Active capsule aspirin 81 mg EC Take 1 tablet 0 10/18/2019 Active tabletIndications: Aortic by mouth daily. stenosis, moderate atorvastatin 20 mg Take 1 tablet 90 tablet 3 10/18/2019 Active tabletIndications: by mouth daily. Coronary artery calcification metFORMIN 500 mg Take 1 tablet 60 tablet 0 01/06/2020 Active tabletIndications: Type 2 by mouth 2 diabetes mellitus without (two) times complication, unspecified daily with whether exterminator insulin meals. use, Coronary arteriosclerosis in [place] artery carvediloL 6.25 mg Take 1 tablet 60 tablet 0 01/06/2020 Active tabletIndications: by mouth 2 Essential hypertension (two) times daily with meals. lisinopril-hydrochlorothi Take 1 tablet 30 tablet 0 01/06/2020 Active azide 20-25 mg per by mouth daily. tabletIndications: Type 2 diabetes mellitus without complication, unspecified whether care home insulin use, Coronary arteriosclerosis in [place] artery documented as of this encounter (statuses as of 01/07/2020) Active Problems Problem Noted Date Coronary arteriosclerosis in [place] artery 01/05/2020 documented as of this encounter [...] 01/10/2020 Hospital Encounter Kirby Grey MD [address] [place], [place] [phone] 01/11/2020 Anesthesia Event Surgery Gretchen Wan, RN [address] [place] [address] 01/11/2020 Surgery Surgery Vazquez Lopez MD CORONARY ARTERY BYPASS [address] [facility]. GRAFT Feng [address] [place] [address] 02/16/2020 Office Visit Cardiology Chary Martinez MD [address] [facility] [address] [place] [phone] 04/18/2020 Office Visit Cardiology Chary Martinez MD [address] [facility] [address] [place] [phone] Health Maintenance Due Date Last Done Comments [...] of this encounter Implants Implanted Type Area Dredging Inspector Device Shelf Expiration Model / Identifier Date Serial / Lot Wire WIRE Upper: Mandible documented as of this encounter Results Not on filedocumented in this encounter Insurance Payer Benefit Plan / Subscriber ID Effective Phone Address Type Group Dates MEDICARE MEDICARE PART xxxxxxxxxxx 2011-Pr [phone] [address] Medicare A & B esent [id number] [place] [id number] [facility] [id number] 2018-Pre [address] Medicare HEALTHCARE HEALTHCARE sent [id number] Supplement MEDICARE [place] SUPPLEMENT DE[place] [id number] documented as of this encounter
--- OUTSIDE RECORDS SUMMARY | 2020-01-19 15:56 | XMS REPORT | Summary of Care ---
:1945 Author Organization [facility] - [facility] Address [address] [place] [address] Care Team Providers Name Role Phone Franklyn Garay Primary Care Provider Encounter Details Date Type Department Care Team Description 01/07/2020 Orders Only [facility] Doctor Unassigned, No [address] [facility] [place] [address] [address] [place] [address] Allergies Active Allergy Reactions Severity Noted Date Comments Ciprofloxacin Rash 09/17/2019 Penicillins Rash 09/17/2019 documented as of this encounter (statuses as of 01/10/2020) Medications Medication Sig Dispensed Refills Start Date End Date Status finasteride 5 mg Take 5 mg by 0 08/25/2019 Suspended tablet mouth daily. gemfibrozil 600 mg Take 600 mg by 0 08/25/2019 Suspended tablet mouth 2 (two) times daily before breakfast and dinner. glipiZIDE 10 mg Take 10 mg by 0 08/25/2019 Suspended tablet mouth 2 (two) times daily before breakfast and dinner. LANTUS U-100 INSULIN inject 55 Units 0 08/25/2019 Suspended 100 unit/mL solution under the skin 2 (two) times daily. omeprazole 20 mg Take 20 mg by 0 08/25/2019 Suspended capsule mouth daily. tamsulosin 0.4 mg 24 Take 0.4 mg by 0 08/25/2019 Suspended hr capsule mouth 2 (two) times daily. aspirin 81 mg EC Take 1 tablet by 0 10/18/2019 Suspended tabletIndications: mouth daily. Aortic stenosis, moderate Additional information atorvastatin 20 mg Take 1 tablet by 90 tablet 3 10/18/2019 Suspended tabletIndications: Coronary mouth daily. artery calcification Additional information metFORMIN 500 mg Take 1 tablet by 60 tablet 0 01/06/2020 Suspended tabletIndications: Type 2 mouth 2 (two) times diabetes mellitus without daily with meals. complication, unspecified whether terminal gauger insulin use, Coronary arteriosclerosis in [place] artery Additional information Patient taking differently: 1,000 mg Oral BID MEALS, Reported on 01/07/2020 11: 27 AM carvediloL 6.25 mg Take 1 tablet by 60 tablet 0 01/06/2020 Suspended tabletIndications: Essential mouth 2 (two) times hypertension daily with meals. Additional information lisinopril-hydrochlorothiazide 20-25 Take 1 tablet 30 tablet 0 01/06/2020 Suspended mg per tabletIndications: Type 2 by mouth diabetes mellitus without daily. complication, unspecified whether penitentiary insulin use, Coronary arteriosclerosis in [place] artery Additional information documented as of this encounter (statuses as of 01/10/2020) Active Problems Problem Noted Date Coronary arteriosclerosis in [place] artery 01/05/2020 documented as of this encounter (statuses as of 01/10/2020) Immunizations Name Administration Dates Next Due Influenza [...] Treatment Date Type Specialty Care Team Description 01/11/2020 Anesthesia Event Surgery Gretchen Wan RN [address] [place] [address] 01/11/2020 Surgery Surgery Vazquez Lopez MD CORONARY ARTERY BYPASS [address] [facility]. GRAFT Feng [address] [place] [address] 02/16/2020 Office Visit Cardiology Chary Martinez MD [address] [place] [address] [place] [address] [phone] 04/18/2020 Office Visit Cardiology Chary Martinez MD [address] [place] [address] [address] [place], [place] [phone] Health Maintenance Due Date Last Done Comments [...] of this encounter Implants Implanted Type Area Direct Care Supervisor Device Shelf Expiration Model / Identifier Date Serial / Lot Wire WIRE Upper: Mandible documented as of this encounter Procedures Procedure Name Priority Date/Time Associated Diagnosis Comments DIRECTIVE TO PHYSICIAN Routine 01/07/2020 12:01 AM STATOR TESTER POWER OF [place]NA[place] HAT BLOCKER Routine 01/07/2020 12:01 AM STATOR TESTER EXTERNAL PROVIDER Routine 01/07/2020 12:01 AM STATOR TESTER RECORDS documented in this encounter Results Not on filedocumented in this encounter Insurance Payer Benefit Plan / Subscriber ID Effective Phone Address Type Group Dates MEDICARE MEDICARE PART xxxxxxxxxxx 2011-Pr [phone] [address] Medicare A & B esent [id number] [place] [phone] [facility] [id number] 2018-Pre [address] Medicare HEALTHCARE HEALTHCARE sent [id number] Supplement MEDICARE [place] SUPPLEMENT DE[place] [id number] documented as of this encounter
--- OUTSIDE RECORDS SUMMARY | 2020-01-19 15:56 | XMS REPORT | Summary of Care ---
:1945 Author Organization [facility] - [facility] Address [address] [place] [address] Care Team Providers Name Role Phone Franklyn Garay Primary Care Provider Reason for Referral (Routine) Status Reason Specialty Diagnoses / Procedures Referred By Referred To Contact Contact New Request IM-INTERNAL Diagnoses Type 2 diabetes mellitus without complication, unspecified whether [facility] insulin use Coronary arteriosclerosis in [place] artery RICHARD Grey Procedures Discharge Follow-Up: Specialty Service IM-INTERNAL MEDICINE; Other - See Comment (readmit on Friday, 01/09 for CABG) MD Kirby [address] [place] [address] Reason for Visit Auth/Cert Status Reason Specialty Diagnoses / Referred By Referred To Procedures Contact Contact Medicine - Diagnoses CAD/ESSENTIAL HYPERTENSION/LINK Clc 4a Inpatient only [address] [place] [address] Encounter Details Date Type Department Care Team Description 01/05/2020 - [facility] [place] [address] [place], [place] [id number] Coronary 01/06/2020 Encounter Medicine/Surgery Kirby Grey MD [address] [place] [address] arteriosclerosis in CLC 4A Provider, Clc Cardiac [place] artery [address] 2, [place] [address] Allergies Active Allergy Reactions Severity Noted Date Comments Ciprofloxacin Rash 09/17/2019 Penicillins Rash 09/17/2019 documented as of this encounter (statuses as of 01/06/2020) Medications Medication Sig Dispensed Refills Start End Status Date Date finasteride 5 mg 0 Active tablet 9 gemfibrozil 600 mg 0 Active tablet 9 glipiZIDE 10 mg 0 Active tablet 9 LANTUS U-100 INSULIN inject 55 Units 0 Active 100 unit/mL solution under the skin 2 9 (two) times daily. omeprazole 20 mg 0 Active capsule 9 tamsulosin 0.4 mg 24 0 Active hr capsule 9 aspirin 81 mg EC Take 1 tablet by 0 Active tabletIndications: mouth daily. 9 Aortic stenosis, moderate atorvastatin 20 mg Take 1 tablet by 90 tablet 3 Active tabletIndications: mouth daily. 9 Coronary artery calcification metFORMIN 500 mg Take 1 tablet by 60 tablet 0 Active tabletIndications: mouth 2 (two) 0 Type 2 diabetes times daily with mellitus without meals. complication, unspecified whether [facility] insulin use, Coronary arteriosclerosis in [place] artery carvediloL 6.25 mg Take 1 tablet by 60 tablet 0 Active tabletIndications: mouth 2 (two) 0 Essential times daily with hypertension meals. lisinopril-hydrochlo Take 1 tablet by 30 tablet 0 Active rothiazide 20-25 mg mouth daily. 0 per tabletIndications: Type 2 diabetes mellitus without complication, unspecified whether long term acute care registered nurse insulin use, Coronary arteriosclerosis in [place] artery lisinopril-hydrochlo 0 Discontinued rothiazide 20-25 mg 9 020 (Reorder) per tablet metFORMIN 500 mg 0 Discontinued tablet 9 020 (Reorder) flu vaccine 66 yrs PHARMACIST 0 Discontinued and up 180 mcg/0.5 ADMINISTERED 9 020 mL IMMUNIZATION ADMINISTERED AT TIME OF DISPENSING carvediloL 6.25 mg Take 1 tablet by 60 tablet 3 Discontinued tabletIndications: mouth 2 (two) 0 020 (Reorder) Essential times daily with hypertension meals. documented as of this encounter (statuses as of 01/06/2020) Active Problems Problem Noted Date Coronary arteriosclerosis in [place] artery 01/05/2020 documented as of this encounter (statuses as of 01/06/2020) Immunizations Name Administration Dates Next Due Influenza High Dose 08/03/2019 documented as of this encounter Social History Tobacco Use Types Packs/Day Years Used Date Former Smoker Cigarettes 41 Quit: 11/03/2001 Smokeless Tobacco: Never Used Tobacco Cessation: Counseling Given: Yes Sex Assigned at Date Recorded Not on file Job Start Date Occupation Industry Not on file Not on file Not on file Travel History Travel Start Travel End No recent travel history available. documented as of this encounter Last Filed Vital Signs Vital Sign Reading Time Taken Comments Blood Pressure 159/78 01/06/2020 12:00 PM CALENDER SUPERVISOR Pulse 88 01/06/2020 12:00 PM CALENDER SUPERVISOR Temperature 36.6 C (97.9 F) 01/06/2020 12:00 PM CALENDER SUPERVISOR Respiratory Rate 19 01/06/2020 12:00 PM CALENDER SUPERVISOR Oxygen Saturation 90% 01/06/2020 12:00 PM CALENDER SUPERVISOR Inhaled Oxygen Concentration - - Weight 113.9 kg (251 lb 1.7 oz) 01/05/2020 3:04 PM CALENDER SUPERVISOR Height 170.2 cm (5' 7") 01/05/2020 8:02 AM CALENDER SUPERVISOR Body Mass Index 39.33 01/05/2020 8:02 AM CALENDER SUPERVISOR documented in this encounter Discharge Summaries Kirby Grey MD - 01/06/2020 12:47 PM CST Red Team Service Date of Service: 01/06/2020 ADMIT DATE: 01/05/2020 DISCHARGE DATE: 01/06/2020 ATTENDING MD: Kirby Grey MD REASON FOR ADMISSION Chest pain FINAL DIAGNOSIS: (the reason, after study, for admitting the patient to the hospital) Unstable angina Hypertension SECONDARY DIAGNOSIS: (any diagnosis that, on this admission, required clinical evaluation, therapeutic treatment, diagnostic procedures, extended hospital stay , or additional nursing care/monitoring) None Active Problems: Coronary arteriosclerosis in [place] artery (01/05/2020) POA: Yes Resolved Problems: * No resolved hospital problems. * Orders Placed This Encounter CONSULT CARDIOLOGY CONSULT CARDIOVASCULAR SURGERY Current Facility-Administered Medications: acetaminophen (TYLENOL) tablet 650 mg, 650 mg, Oral, Q6HPRN, Kirby Grey MD aspirin EC tablet 81 mg, 81 mg, Oral, DAILY, Bocado, Hannaeflor, CARGO SURVEYOR, 81 mg at 01/06/20 0853 atorvastatin (LIPITOR) tablet 20 mg, 20 mg, Oral, DAILY, Bocado, Hannaeflor , CARGO SURVEYOR, 20 mg at 01/06/20 0854 carvediloL (COREG) tablet 6.25 mg, 6.25 mg, Oral, BID MEALS, Bocado, Marieflor, CARGO SURVEYOR, 6.25 mg at01/06/20 0907 docusate (COLACE) capsule 100 mg, 100 mg, Oral, BID, Kirby Grey MD finasteride (PROSCAR) tablet 5 mg, 5 mg, Oral, DAILY, Bocado, Hannaeflor, CARGO SURVEYOR, 5 mg at 01/06/20 0859 gemfibrozil (LOPID) tablet 600 mg, 600 mg, Oral, BIDAC, Zoey Gutierrezlor, CARGO SURVEYOR, 600 mg at 01/06/20 0906 glipiZIDE (GLUCOTROL) tablet 10 mg, 10 mg, Oral, DAILY, Bocado, Hannaeflor, CARGO SURVEYOR, 10 mg at 01/06/20 0855 hydroCHLOROthiazide (ESIDRIX) capsule 25 mg, 25 mg, Oral, DAILY, Bocado, Marieflor, CARGO SURVEYOR, 25 mg at 01/06/20 0856 HYDROcodone-acetaminophen (NORCO 5) 5-325 mg tablet 1 tablet, 1 tablet, Oral, Q6HPRN, Kirby Grey MD insulin glargine (LANTUS U-100) injection 55 Units, 55 Units, Subcutaneous , BID, Matt, Mars, CARGO SURVEYOR, 55 Units at 01/06/20 0920 lisinopril (PRINIVIL,ZESTRIL) tablet 20 mg, 20 mg, Oral, DAILY, Bocado, Hannaeflor, CARGO SURVEYOR, 20 mg at 01/06/20 0855 morpHINE injection 4 mg, 4 mg, Slow IV Push, Q4HPRN, Kirby Grey MD omeprazole (PRILOSEC) capsule 20 mg, 20 mg, Oral, DAILY, Bocado, Hannaeflor , CARGO SURVEYOR, 20 mg at 01/06/20 0858 ondansetron (ZOFRAN (PF)) injection 4 mg, 4 mg, Slow IV Push, Q6HPRN, Kirby Grey MD Sliding Scale Insulin-Regular + Fsbg Testing, , Subcutaneous, AC+HS, Bocado , Marieflor, CARGO SURVEYOR, 3 Units at 01/06/20 1222 tamsulosin (FLOMAX) capsule 0.4 mg, 0.4 mg, Oral, DAILY, Bocado, Hannaeflor , CARGO SURVEYOR, 0.4 mg at 01/06/20 0854 SIGNIFICANT LAB/X-RAYS: Lab results: CBC BMP PT/INR WBC (10*3/L) Date Value 01/05/2020 7.17 NA (mmol/L) Date Value 01/05/2020 143 No results found for: PT RBC (10*6/L) Date Value 01/05/2020 4.37 K (mmol/L) Date Value 01/05/2020 4.0 INR (no units) Date Value 01/05/2020 1.1 PLT (10*3/L) Date Value 01/05/2020 246 CALCIUM (mg/dL) Date Value 01/05/2020 8.9 HGB (g/dL) Date Value 01/05/2020 13.4 CL (mmol/L) Date Value 01/05/2020 107 aPTT HCT (%) Date Value 01/05/2020 40.6 BUN (mg/dL) Date Value 01/05/2020 28 (H) No results found for: APTTPAT CREATININE (mg/dL) Date Value 01/05/2020 0.89 GLUCOSE (mg/dL) Date Value 01/05/2020 108 CO2 TOTAL (mmol/L) Date Value 01/05/2020 23 Other lab results: None X-ray results: No final results containing an impression from the past 30 days were found. HOSPITAL COURSE: Abdirashid Damon is a 74 year old male with PMHx of multiple medical problems, admitted to the hospital with:multivessel CAD and left main disease Left main and triple vessel CAD Moderate to severe aortic valve stenosis COPD Chronic worsening dyspnea Hypertension Diabetes mellitus type 2 Obesity Dyslipidemia For three vessel CABG next week Bioprosthetic valve replacement Pulmonary clearance and evaluation - patient reports that he has had a recent, extensive [facility] pulmonary workup Continue home meds FUNCTIONAL STATUS: fully ambulatory DISCHARGE CONDITION: good COGNITIVE STATUS: cognitively intact DIET: cardiac ACTIVITY: as tolerated DISCHARGE MEDICATIONS: Current Discharge Medication List CONTINUE these medications which have CHANGED Details carvediloL (COREG) 6.25 mg Take 6.25 mg by mouth 2 (two) times daily with meals. Qty: 60 tablet, Refills: 0 Start date: 01/06/2020 Associated Diagnoses: Essential hypertension lisinopril-hydrochlorothiazide (PRINZIDE,ZESTORETIC) 1 tablet Take 1 tablet by mouth daily. Qty: 30 tablet, Refills: 0 Start date: 01/06/2020 Associated Diagnoses: Type 2 diabetes mellitus without complication, unspecified whether [facility] insulin use; Coronary arteriosclerosis in [place] artery metFORMIN (GLUCOPHAGE) 500 mg Take 500 mg by mouth 2 (two) times daily with meals. Qty: 60 tablet, Refills: 0 Start date: 01/06/2020 Associated Diagnoses: Type 2 diabetes mellitus without complication, unspecified whether [facility] insulin use; Coronary arteriosclerosis in [place] artery CONTINUE these medications which have NOT CHANGED Details aspirin 81 mg Take 81 mg by mouth daily. Associated Diagnoses: Aortic stenosis, moderate atorvastatin (LIPITOR) 20 mg Take 20 mg by mouth daily. Qty: 90 tablet, Refills: 3 Associated Diagnoses: Coronary artery calcification finasteride 5 mg tablet LANTUS U-100 INSULIN 55 Units inject 55 Units under the skin 2 (two) times daily. omeprazole 20 mg capsule tamsulosin 0.4 mg 24 hr capsule gemfibrozil 600 mg tablet glipiZIDE 10 mg tablet STOP taking these medications flu vaccine 65 yrs and up 180 mcg/0.5 mL Comments: Reason for Stopping: ANTIBIOTICS: Did this patient receive antibiotics during this admission, or is he/sh being discharged with antibiotics? No Was the patient given education on antibiotic indication, duration, and adverse effects? WOUND CARE: none CODE STATUS: full code OXYGEN (is patient being discharged on oxygen): no CORE MEASURES: None PATIENT EDUCATION PROVIDED: medications DISCHARGE: home self care FOLLOW-UP APPOINTMENT: Follow up with ARCELIA Grant on Tuesday 01/09 for direct admission for CABG2 PLAN FOR READMISSION: No Dr. Kirby Grey [phone] documented in this encounter Discharge Instructions AttachmentsThe following attachments cannot be sent through Care Everywhere.Carvedilol tablets (Uruguayan)documented in this encounter Progress Notes Diana Scott RN - 01/06/2020 1:20 PM CALENDER SUPERVISOR Care Management Discharge Disposition Note (DCDN) Interventions: Follow-up appointments;Disease specific education;Follow- up phone calls;Intensive medication reconciliation/management;Teach back;Clear discharge plan Providers: Physician;Maintenance Controller/Benefits Manager;Nurse Tobacco Roller -- Patient Capacity Improvements: Avoidance of adverse events/readmission Discharge location(s): Home Transportation: Private Vehicle Estimated discharge date: 01/06/20 Additional Information: Patient is to return back to hospital next Friday for planned CABG. LULU/SW Name & Contact number: Diana Sctot RN Ph. [phone] The following information has been provided to the facility noted above: reason for the patient discharge or transfer; patients physical and psychosocial status; summary of care, treatment, servicesprovided to patient; and the patient progress toward goals. Kassandra Tubbs MD - 01/06/2020 9:58 AM [facility] Cardiology Inpatient Progress Note Reason for f/u: severe CAD and moderate to severe Date of Service: 01/06/2020 Abdirashid Damon is a 74 year old male hospitalized for pre-CABG and AVR evaluation following elective LHC showing severe multivessel CAD. Patient today has no CP but continues with chronic intermittent WOLFE with walking in his room. Medications: I have reviewed the patient's medications; see Medication Reconciliation. PHYSICAL EXAM (-)=Negative,(+)=Positive Temp: [36.3 C (97.4 F)-37.1 C (98.8 F)] Heart Rate (monitor): [72-83] Pulse: [68-83] Resp: [12-21] BP: (109-153)/(50-94) MAP (mmHg): [85-121] General: Patient is alert and oriented x4 and in no acute distress. Chest - auscultation heart: The heart rate is normal with regular rhythm, and without rubs, or gallops., normal s1, decreased s2, 3/6 harsh systolic murmur RUSB Chest - auscultation lungs: clear to auscultation Abdomen: soft, non-tender, nondistended, normal bowel sounds Extremities: edema: trace and pitting Neuro: nonfocal Database [facility] 01/05/2020 Findings: Coronary dominance: right Left main: Large, ostial 20%, distal focal 50-60% (IVUS indicative of severely calcified distal disease with ?unstable plaque , MLA of 5.8 mm^2 and 70-80% disease with ) LAD: Large, ostial 60%, proximal 40% (FFR baseline of 0.91, peak of 0.69 @ 140 mcg/Kg/min Adenosine), mid 30-40%, mid to distal mild LI, distal vessel wraps around the apex. D1: Small D2: Small Septals: Multiple, small RI: Large, ostial 50% then the vessel gives off 3 branches, two branches with mild disease and the mid branch with 70% disease LCX: Large, proximal 30-40%, mid to distal mild LI OM1: Small OM2: Small to medium size, mild LI RCA: Large, dominant, proximal to mid mild LI, distal 50% PDA: Small to medium size, mild Li PLB: Small LVEDP: 20 mmHg Left Subclavian Angiogram: Patent. Patent tortuous MOYA Impression: 1. Severe dLM disease by IVUS 2. Severe LAD disease by FFR 3. Severe RI branch disease 4. Moderate mRCA disease TTE 09/2019 There is no comparison study available. There is mild concentric left ventricular hypertrophy. Ejection Fraction=55-60%. Diastolic function is impaired relaxation. The left ventricular wall motion is normal. Moderate valvular aortic stenosis. (by my review he has severe with SAHIL index <0.6cm2/m2) Labs noted ASSESSMENT AND PLAN Severe multivessel CAD Moderate to severe WOLFE COPD DM2 HTN Obesity Assessment: The patient is admitted for medical optimization prior to CABG and AVR next week, planned for 01/11/2020. I agree with need for CABG and AVR. Given COPD and intermittently low SpO2, needs pulmonary consult prior to CABG for pulmonary optimization. Recent CT chest did not show significant pulmonary edema or pleural effusions. Plan: Agree with need for pulmonary consult evaluation pre-CABG/AVR. Continue aspirin, statin, coreg, STERLING-I, HCTZ. From a cardiac standpoint he is medically optimized for surgery next week. Kassandra Garcias MD Masonry Supervisor Cardiology documented in this encounter Plan of Treatment Date Type Specialty Care Team Description 01/11/2020 Anesthesia Event Surgery Gretchen Wan, RN [address] [place] [address] 01/11/2020 Surgery Surgery Vazquez Lopez MD CORONARY ARTERY BYPASS [address] [facility], Feng. GRAFT Feng [address] [place] [address] 02/16/2020 Office Visit Cardiology Chary Martinez MD [address] [facility] [address] [place] [address] [phone] 04/18/2020 Office Visit Cardiology Chary Martinez MD [address] [facility] [address] [place] [address] [phone] Name Type Priority Associated Diagnoses Order Schedule EKG-12 LEAD ROUTINE HEART STATION Routine ONCE for 1 Occurrences starting 01/05/2020 until 01/05/2020 Health Maintenance Due Date Last Done Comments [...] of this encounter Implants Implanted Type Area Production Internship Device Shelf Expiration Model / Identifier Date Serial / Lot Wire WIRE Upper: Mandible documented as of this encounter Procedures Procedure Name Priority Date/Time Associated Diagnosis Comments POCT GLUCOSE Routine 01/06/2020 12:06 Results for this (AUTOMATED) PM CALENDER SUPERVISOR procedure are in the results section. POCT GLUCOSE Routine 01/05/2020 8:31 Results for this (AUTOMATED) PM CALENDER SUPERVISOR procedure are in the results section. POCT GLUCOSE Routine 01/05/2020 5:04 Results for this (AUTOMATED) PM CALENDER SUPERVISOR procedure are in the results section. POCT GLUCOSE Routine 01/05/2020 12:39 Results for this (AUTOMATED) PM CALENDER SUPERVISOR procedure are in the results section. POCT ACT LOW RANGE Routine 01/05/2020 8:29 Results for this AM CALENDER SUPERVISOR procedure are in the results section. CATH PROCEDURE LOG Routine 01/05/2020 8:02 AM CALENDER SUPERVISOR CBC WITH DIFFERENTIAL Routine 01/05/2020 5:49 Results for this AM CALENDER SUPERVISOR procedure are in the results section. PROTHROMBIN TIME / Routine 01/05/2020 5:49 Results for this INR AM CALENDER SUPERVISOR procedure are in the results section. GLYCOSYLATED Add-on 01/05/2020 5:49 Type 2 diabetes Results for this HEMOGLOBIN (A1C) AM CALENDER SUPERVISOR mellitus without procedure are in complication, the results unspecified whether section. [facility] insulin use CBC WITH DIFFERENTIAL Routine 01/05/2020 5:49 Results for this AM CALENDER SUPERVISOR procedure are in the results section. BASIC METABOLIC PANEL Routine 01/05/2020 5:49 Results for this (NA, K, CL, CO2, AM CALENDER SUPERVISOR procedure are in GLUCOSE, BUN, the results CREATININE, CA) section. documented in this encounter Results POCT GLUCOSE (AUTOMATED) (01/06/2020 12:06 PM CALENDER SUPERVISOR) POCT GLU 252 (H) 70 - 110 mg/dL [facility] Specimen Blood Performing Organization Address City/[facility] Phone Number [facility] CLIA: [id number], [address] [place] [address] [phone] St POCT GLUCOSE (AUTOMATED) (01/05/2020 8:31 PM CALENDER SUPERVISOR) POCT GLU 256 (H) 70 - 110 mg/dL [facility] Specimen Blood Performing Organization Address City/[facility]/Zipcode Phone Number [facility] CLIA: [id number], [address] [place] [address] St POCT GLUCOSE (AUTOMATED) (01/05/2020 5:04 PM CALENDER SUPERVISOR) POCT GLU 238 (H) 70 - 110 mg/dL [facility] Specimen Blood Performing Organization Address City/[facility]/Zipcode Phone Number [facility] CLIA: [id number], [address] [place] [address] [phone] POCT GLUCOSE (AUTOMATED) (01/05/2020 12:39 PM CALENDER SUPERVISOR) POCT GLU 195 (H) 70 - 110 mg/dL [facility] Specimen Blood Performing Organization Address City/[facility]/Zipcode Phone Number [facility] CLIA: [id number], [address] [place] [address] POCT ACT LOW RANGE (01/05/2020 8:29 AM CALENDER SUPERVISOR) ACTLR 289 (H) 89 - 169 Seconds [facility] Specimen Blood Performing Organization Address City/[facility]/Zipcode Phone Number [facility] CLIA: [id number], [address] [place] [address] [facility] GLYCOSYLATED HEMOGLOBIN (A1C) (01/05/2020 5:49 AM CALENDER SUPERVISOR) HGB A1C 7.6 (H) 4.0 - 6.0 % NGSP [facility] Specimen Blood Performing Organization Address City/[facility]/Zipcode Phone Number [facility] CLIA: [id number], [address] [place] [address] [facility] CBC WITH DIFFERENTIAL (01/05/2020 5:49 AM CALENDER SUPERVISOR) WBC 7.17 4.20 - 10.70 [facility] 10*3/L [facility] RBC 4.37 4.26 - 5.52 [facility] 10*6/L [facility] HGB 13.4 12.2 - 16.4 g/dL [facility] HCT 40.6 38.4 - 49.3 % [facility] MCV 92.9 81.7 - 95.6 fL [facility] MCH 30.7 26.1 - 32.7 pg [facility] MCHC 33.0 31.2 - 35.0 g/dL [facility] RDW-SD 49.7 38.5 - 51.6 fL [facility] RDW-CV 14.8 12.1 - 15.4 % [facility] PLT 246 150 - 328 [facility] 10*3/L [facility] MPV 9.3 (L) 9.8 - 13.0 fL [facility] NRBC/100 WBC 0.0 0.0 - 10.0 /100 [facility] WBCs [facility] NRBC x10^3 <0.01 10*3/L [facility] GRAN MAT (NEUT) % 62.5 % [facility] IMM GRAN % 0.60 % [facility] LYMPH % 22.5 % [facility] MONO % 8.4 % [facility] EOS % 5.2 % [facility] BASO % 0.8 % [facility] GRAN MAT x10^3(ANC) 4.49 1.99 - 6.95 [facility] 10*3/uL [facility] IMM GRAN x10^3 0.04 0.00 - 0.06 [facility] 10*3/uL [facility] LYMPH x10^3 1.61 1.09 - 3.23 [facility] 10*3/uL [facility] MONO x10^3 0.60 0.36 - 1.02 [facility] 10*3/uL [facility] EOS x10^3 0.37 0.06 - 0.53 [facility] 10*3/uL [facility] BASO x10^3 0.06 0.01 - 0.09 [facility] 10*3/uL [facility] Specimen Blood Performing Organization Address City/State/Zipcode Phone Number [facility] CLIA: [id number], [address] [place] [address] [facility] [address] BASIC METABOLIC PANEL (NA, K, CL, CO2, GLUCOSE, BUN, CREATININE, CA) (2019 5:49 AM CALENDER SUPERVISOR) NA 143 135 - 145 [facility] mmol/L [facility] K 4.0 3.5 - 5.0 [facility] mmol/L [facility] CL 107 98 - 108 mmol/L [facility] CO2 TOTAL 23 23 - 31 mmol/L [facility] AGAP 13 2 - 16 [facility] BUN 28 (H) 7 - 23 mg/dL [facility] GLUCOSE 108 70 - 110 mg/dL [facility] CREATININE 0.89 0.60 - 1.25 [facility] mg/dL [facility] CALCIUM 8.9 8.6 - 10.6 [facility] mg/dL [facility] eGFR Calculation 83.8 mL/min/1.73m2 [facility] (Non-) [facility] eGFR Calculation 101.6 mL/min/1.73m2 [facility] () [facility] Specimen Blood Narrative Performed At Association of Glomerular Filtration Rate [facility] (GFR) and Staging of Kidney Disease* CAMPUS + + --+ + | GFR (mL/min/1.73 m2) | With Kidney Damage | Without Kidney Damage + + --+ + | >90 | Stage one | Normal + + --+ + | 60-89 | Stage two | Decreased GFR + + --+ + | 30-59 | Stage three | Stage three + + --+ + | 15-29 | Stage four | Stage four + + --+ + | <15 (or dialysis) | Stage five | Stage five + + --+ + *Each stage assumes the associated GFR level has been in effect for at least three months. Stages 1 to 5, with or without kidney disease, indicate chronic kidney disease. Notes: Determination of stages one and two (with eGFR >59mL/min/1.73 m2) requires estimation of kidney damage for at least three months as defined by structural or functional abnormalities of the kidney, manifested by either: Pathological abnormalities or Markers of kidney damage (including abnormalities in the composition of the blood or urine or abnormalities in imaging tests). Performing Organization Address City/State/Zipcode Phone Number [facility] CLIA: [id number], [address] [place] [address] [facility] PROTHROMBIN TIME / INR (01/05/2020 5:49 AM CALENDER SUPERVISOR) PROTIME PATIENT 11.8 10.1 - 12.6 [facility] Seconds [facility] INR 1.1Comment: Normal [facility] INR <1.1; Warfarin [facility] Therapeutic range [facility] 2.0 to 3.0 or 2.5 to 3.5, depending upon the indications. Specimen Blood Performing Organization Address City/State/Zipcode Phone Number [facility] CLIA: [id number], [address] [place] [address] [facility] documented in this encounter Visit Diagnoses Diagnosis Type 2 diabetes mellitus without complication, unspecified whether long term acute care registered nurse insulin use - Primary Essential hypertension Unspecified essential hypertension Coronary arteriosclerosis in [place] artery Coronary atherosclerosis of [place] coronary artery documented in this encounter Administered Medications Medication Order MAR Action Action Date Dose Rate Site acetaminophen (TYLENOL) tablet 650 mg 650 mg, Oral, Q6HPRN, Starting Fri01/05/20 at 1405, Until Discontinued, Routine , Pain (scale 1-3) aspirin EC tablet 81 mg Given 01/06/2020 8:53 AM CALENDER SUPERVISOR 81 mg 81 mg, Oral, DAILY, First dose on Fri01/06/20 at 0900, Until Discontinued, Routine atorvastatin (LIPITOR) tablet 20 mg Given 01/06/2020 8:54 AM CALENDER SUPERVISOR 20 mg 20 mg, Oral, DAILY, First dose on Fri01/06/20 at 0900, Until Discontinued, Routine carvediloL (COREG) tablet 6.25 mg Given 01/06/2020 9:07 AM CALENDER SUPERVISOR 6.25 mg 6.25 mg, Oral, BID MEALS, First dose on Fri01/05/20 at 1700, Until Discontinued, Routine Given 01/05/2020 5:03 PM CALENDER SUPERVISOR 6.25 mg docusate (COLACE) capsule 100 mg 100 mg, Oral, BID, First dose on Fri01/05/20 at 2000, Until Discontinued, Routine finasteride (PROSCAR) tablet 5 mg Given 01/06/2020 8:59 AM CALENDER SUPERVISOR 5 mg 5 mg, Oral, DAILY, First dose on Fri01/06/20 at 0900, Until Discontinued, Routine gemfibrozil (LOPID) tablet 600 mg Given 01/06/2020 9:06 AM CALENDER SUPERVISOR 600 mg 600 mg, Oral, BIDAC, First dose on Fri01/05/20 at 1630, Until Discontinued, Routine Given 01/05/2020 5:03 PM CALENDER SUPERVISOR 600 mg glipiZIDE (GLUCOTROL) tablet 10 mg Given 01/06/2020 8:55 AM CALENDER SUPERVISOR 10 mg 10 mg, Oral, DAILY, First dose on Fri01/06/20 at 0900, Until Discontinued, Routine hydroCHLOROthiazide (ESIDRIX) capsule 25 mg Given 01/06/2020 8:56 AM CALENDER SUPERVISOR 25 mg 25 mg, Oral, DAILY, First dose on Fri01/06/20 at 0900, Until Discontinued, Routine HYDROcodone-acetaminophen (NORCO 5) 5-325 mg tablet 1 tablet 1 tablet, Oral, Q6HPRN, Starting Fri01/05/20 at 1405, Until Fri01/07/20 at 1404, Routine, Pain (scale 4-6) insulin glargine (LANTUS U-100) Given 01/06/2020 9:20 AM CALENDER SUPERVISOR 55 Units Abdomen-SC injection 55 Units 55 Units, Subcutaneous, BID, First dose on Fri01/05/20 at 2000, Until Discontinued, Routine Given 01/05/2020 8:32 PM CALENDER SUPERVISOR 55 Units Abdomen-SC lisinopril (PRINIVIL,ZESTRIL) tablet 20 mg Given 01/06/2020 8:55 AM CALENDER SUPERVISOR 20 mg 20 mg, Oral, DAILY, First dose on Fri01/06/20 at 0900, Until Discontinued, Routine morpHINE injection 4 mg 4 mg, Slow IV Push, Q4HPRN, Starting Fri01/05/20 at 1407, Until Discontinued, Routine, Pain (scale 7-10) omeprazole (PRILOSEC) capsule 20 mg Given 01/06/2020 8:58 AM CALENDER SUPERVISOR 20 mg 20 mg, Oral, DAILY, First dose on Fri01/06/20 at 0900, Until Discontinued, Routine ondansetron (ZOFRAN (PF)) injection 4 mg 4 mg, Slow IV Push, Q6HPRN, Starting Fri01/05/20 at 1405, Until Discontinued, Routine, Nausea and Vomiting (N/V) Sliding Scale Insulin-Regular + Given 01/06/2020 12:22 PM CALENDER SUPERVISOR 3 Units Abdomen-SC Fsbg Testing Subcutaneous, AC+HS, First dose on Fri01/05/20 at 1130, Until Discontinued, Routine Given 01/06/2020 9:21 AM CALENDER SUPERVISOR 2 Units Abdomen-SC Given 01/05/2020 8:32 PM CALENDER SUPERVISOR 3 Units Abdomen-SC tamsulosin (FLOMAX) capsule 0.4 mg Given 01/06/2020 8:54 AM CALENDER SUPERVISOR 0.4 mg 0.4 mg, Oral, DAILY, First dose on Fri01/06/20 at 0900, Until Discontinued, Routine Medication Order MAR Action Action Date Dose Rate Site FENTanyl PF (SUBLIMAZE (PF)) Given 01/05/2020 8:00 AM CALENDER SUPERVISOR 25 mcg injection Slow IV Push, TITRATE - FOR PROCEDURE USE, 1 dose, Starting Fri01/05/20 at 0800, Until Fri01/05/20 at 0800, Routine heparin 1,000 unit/mL Given 01/05/2020 8:09 AM CALENDER SUPERVISOR 2,500 Units Right Wrist injection Slow IV Push, TITRATE - FOR PROCEDURE USE, 1 dose, Starting Fri01/05/20 at 0809, Until Fri01/05/20 at 0809, Routine heparin 1,000 unit/mL injection Given 01/05/2020 8:24 AM CALENDER SUPERVISOR 8,000 Units Slow IV Push, PRN, Starting Fri01/05/20 at 0824, Until Fri01/05/20 at 0824, Routine lidocaine 1% (PF) (XYLOCAINE) Given 01/05/2020 8:03 AM CALENDER SUPERVISOR 1 mL Right Wrist injection Infiltration, TITRATE - FOR PROCEDURE USE, 1 dose, Starting Fri01/05/20 at 0803, Until Fri01/05/20 at 0803, Routine midazolam (VERSED) injection Given 01/05/2020 8:00 AM CALENDER SUPERVISOR 1 mg IV Push, TITRATE - FOR PROCEDURE USE, 1 dose, Starting Fri01/05/20 at 0800, Until Fri01/05/20 at 0800, Routine NaCl 0.9% (NS) IV infusion 1,000 New Bag 01/05/2020 3:05 PM CALENDER SUPERVISOR 1,000 mL 75 mL/hr mL at 75 mL/hr, IV Infusion, CONTINUOUS, Starting Fri01/05/20 at 1115, Until Fri01/05/20 at 1531, Routine NaCl 0.9% (NS) IV infusion 1,000 New Bag 01/05/2020 4:45 PM CALENDER SUPERVISOR 1,000 mL 75 mL/hr mL at 75 mL/hr, IV Infusion, ONCE, 1 dose, 01/05/20 at 1645, Routine, X1 liter of NS only, nitroglycerin (TRIDIL) 2 mg in 10 Given 01/05/2020 8:10 AM CALENDER SUPERVISOR 200 mcg Right Wrist mL D5W for Cardiac Cath Intravenous, TITRATE - FOR PROCEDURE USE, 1 dose, Starting Fri01/05/20 at 0810, Until Fri01/05/20 at 0810, Routine verapamil (ISOPTIN) injection Given 01/05/2020 8:10 AM 2.5 mg Right Wrist Intravenous, TITRATE - FOR PROCEDURE CALENDER SUPERVISOR USE, 1 dose, Starting Fri01/05/20 at 0810, Until Fri01/05/20 at 0810, Routine documented in this encounter Insurance Payer Benefit Plan / Subscriber ID Effective Phone Address Type Group Dates MEDICARE MEDICARE PART xxxxxxxxxxx 2011-Pr [phone] [address] [employer] esent [id number] [place] [phone] [facility] [id number] 2018-Pre [address] Medicare HEALTHCARE HEALTHCARE sent [id number] Supplement MEDICARE [place] SUPPLEMENT [place] [id number] documented as of this encounter
--- OUTSIDE RECORDS SUMMARY | 2020-01-19 16:04 | XMS REPORT | Summary of Care ---
:1945 Author Organization [facility] Address [address] [place] [id number] Care Team Providers Name Role Phone Flora Barrera Primary Care Provider Reason for Referral (Routine) Status Reason Specialty Diagnoses / Referred By Referred To Procedures Contact Contact Pending Review Diagnoses Coronary artery disease involving coronary bypass graft of [place] heart with angina pectoris Achuo, Farhan, Flora Barrera Procedures Discharge Follow-up: PCP FLORA BARRERA; 4-6 Weeks STAFF TRAINING AND DEVELOPMENT MANAGER [address] [facility] [address] [place] [phone] Phone: (Routine) Status Reason Specialty Diagnoses / Referred By Referred To Procedures Contact Contact New Request TS-THORACIC Diagnoses Coronary artery disease involving coronary bypass graft of [place] heart with angina pectoris Achuo, Farhan, SURGERY Procedures Discharge Follow-Up: Specialty Service TS-THORACIC SURGERY (CARDIOTHORACIC VASCULAR SURGERY); Other - See Comment (as directed post rehab) STAFF TRAINING AND DEVELOPMENT MANAGER (CARDIOTHORACIC [address] VASCULAR SURGERY) [place] [address] Radiology Services (Routine) Status Reason Specialty Diagnoses / Referred By Referred To Procedures Contact Contact New Request Diagnostic Diagnoses S/P CABG (coronary artery bypass graft) Isidro Pulido MD Radiology Procedures XR CHEST 1 VW 64[address] [facility]. [address] [address] Radiology Services (Routine) Status Reason Specialty Diagnoses / Referred By Referred To Procedures Contact Contact New Request Diagnostic Diagnoses S/P CABG (coronary artery bypass graft) Isidro Pulido MD Radiology Procedures XR CHEST [address] [place] [place] [address] Radiology Services (Routine) Status Reason Specialty Diagnoses / Referred By Referred To Procedures Contact Contact New Request Diagnostic Diagnoses Coronary artery disease involving coronary bypass graft of [place] heart with angina pectoris Isidro Pulido MD Radiology Procedures XR CHEST [address] [place] [address] Radiology Services (Routine) Status Reason Specialty Diagnoses / Referred By Referred To Procedures Contact Contact New Request Diagnostic Diagnoses S/P CABG (coronary artery bypass graft) Kit Westbrook, Radiology Procedures XR CHEST 1 VW [address] [facility] [place] [address] Radiology Services (STAT) Status Reason Specialty Diagnoses / Referred By Referred To Procedures Contact Contact New Request Diagnostic Diagnoses Acute on chronic diastolic congestive heart failure Isidro Pulido MD Radiology Procedures XR KUB [address] [facility] [place] [place] [address] [place] [address] Radiology Services (Routine) Status Reason Specialty Diagnoses / Referred By Referred To Procedures Contact Contact New Request Diagnostic Diagnoses S/P CABG (coronary artery bypass graft) Isidro Pulido MD Radiology Procedures XR CHEST [address] [place] [address] Radiology Services (Routine) Status Reason Specialty Diagnoses / Referred By Referred To Procedures Contact Contact New Request Diagnostic Diagnoses S/P CABG (coronary artery bypass graft) Bhavani Albarado, Radiology Procedures XR CHEST 1 MADDIE SILVA [address] [facility] [address] [place] [address] Radiology Services (Routine) Status Reason Specialty Diagnoses / Referred By Referred To Procedures Contact Contact New Request Diagnostic Diagnoses S/P CABG (coronary artery bypass graft) Isidro Pulido MD Radiology Procedures XR CHEST [address] [place] [address] Radiology Services (ERIN) Status Reason Specialty Diagnoses / Procedures Referred By Referred To Contact Contact New Request Diagnostic Diagnoses Coronary arteriosclerosis in [place] artery Lito, Radiology Procedures Chest 1 View MD Syeda 501 [facility] [address] [place] [address] Radiology Services (STAT) Status Reason Specialty Diagnoses / Procedures Referred By Referred To Contact Contact New Request Diagnostic Diagnoses Coronary arteriosclerosis in [place] artery Lito, Radiology Procedures XR CHEST 1 VW MD Syeda 501 [facility] [address] [place] [address] Reason for Visit Auth/Cert Status Reason Specialty Diagnoses / Referred By Referred To Procedures Contact Contact Medicine - Diagnoses cad Clc 4a Inpatient only Procedures cabg [address] [place] [address] Encounter Details Date Type Department Care Team Description 01/10/2020 - Hospital Encounter [facility] Kirby Grey MD [address] [place], [place] [address] CAD (coronary 01/19/2020 [place] [address] [facility] [address] [place] [address] [phone] artery disease) CLC 4C Deborah Alvarez MD [address] [facility] [address] [place], [place] [address] [address] [place] [address] Allergies Active Allergy Reactions Severity Noted Date Comments Ciprofloxacin Rash 09/17/2019 Penicillins Rash 09/17/2019 documented as of this encounter (statuses as of 01/19/2020) Medications Medication Sig Dispensed Refills Start Date End Date Status finasteride 5 mg tablet Take 5 mg by 0 08/25/2019 Active mouth daily. gemfibrozil 600 mg Take 600 mg by 0 08/25/2019 Active tablet mouth 2 (two) times daily before breakfast and dinner. glipiZIDE 10 mg tablet Take 10 mg by 0 08/25/2019 Active mouth 2 (two) times daily before breakfast and dinner. omeprazole 20 mg capsule Take 20 mg by 0 08/25/2019 Active mouth daily. tamsulosin 0.4 mg 24 hr Take 0.4 mg by 0 08/25/2019 Active capsule mouth 2 (two) times daily. aspirin 81 mg EC Take 1 tablet by 0 10/18/2019 Active tabletIndications: mouth daily. Aortic stenosis, moderate metFORMIN 500 mg Take 1 tablet by 60 tablet 0 01/06/2020 Active tabletIndications: Type mouth 2 (two) 2 diabetes mellitus times daily with without complication, meals. 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 involving coronary bypass graft of [place] heart with angina pectoris carvediloL 6.25 mg Take 1 tablet 60 tablet 0 01/19/2020 Active tabletIndications: by mouth 2 Coronary artery disease (two) times involving coronary bypass daily with graft of [place] heart with meals. angina pectoris insulin glargine 100 inject 40 Units 10 mL 1 01/19/2020 Active unit/mL under the skin injectionIndications: 2 (two) times Coronary artery disease daily. involving coronary bypass graft of [place] heart with angina pectoris acetaminophen 325 mg Take 2 tablets 60 tablet 0 01/19/2020 Active tabletIndications: by mouth every 021 Coronary artery disease 6 (six) hours involving coronary bypass as needed for graft of [place] heart with Pain (scale angina pectoris 1-3). clopidogreL 75 mg Take 1 tablet 90 tablet 0 01/20/2020 Active tabletIndications: by mouth daily. 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 Coronary artery disease involving coronary bypass graft of [place] heart with angina pectoris furosemide 40 mg Take 1 tablet 60 tablet 0 01/19/2020 Active tabletIndications: by mouth every Coronary artery disease morning and involving coronary bypass evening. graft of [place] heart with angina pectoris nystatin 100,000 unit/gram Apply to 15 g 0 01/19/2020 Active ointmentIndications: area(s) 2 (two) Coronary artery disease times daily. involving coronary bypass graft of [place] heart with angina pectoris insulin regular human Soln inject under 0 01/19/2020 Active injection the skin before meals and at bedtime. lisinopril 20 mg Take 1 tablet 30 tablet 0 01/19/2020 Active tabletIndications: by mouth daily. Coronary artery disease involving coronary bypass graft of [place] heart with angina pectoris LANTUS U-100 INSULIN 100 inject 55 Units 0 08/25/2019 Discontinued unit/mL solution under the skin 020 2 (two) times daily. atorvastatin 20 mg Take 1 tablet 90 tablet 3 10/18/2019 Discontinued tabletIndications: by mouth daily. 020 Coronary artery calcification carvediloL 6.25 mg Take 1 tablet 60 tablet 0 01/06/2020 Discontinued tabletIndications: by mouth 2 020 Essential hypertension (two) times daily with meals. lisinopril-hydrochlorothia Take 1 tablet 30 tablet 0 01/06/2020 Discontinued zide 20-25 mg per by mouth daily. 020 tabletIndications: Type 2 diabetes mellitus without complication, unspecified whether skilled nursing insulin use, Coronary arteriosclerosis in [place] artery documented as of this encounter (statuses as of 01/19/2020) Active Problems Problem Noted Date Acute on chronic diastolic congestive heart failure 01/14/2020 Morbid obesity 01/13/2020 S/P AVR 01/12/2020 S/P CABG (coronary artery bypass graft) 01/12/2020 Nonrheumatic aortic valve stenosis 01/12/2020 Dyslipidemia 01/12/2020 Essential hypertension 01/12/2020 Other emphysema 01/12/2020 CAD (coronary artery disease) 01/10/2020 Coronary arteriosclerosis in [place] artery 01/05/2020 documented as of this encounter (statuses as of 01/19/2020) Immunizations Name Administration Dates Next Due Influenza [...] Sign Reading Time Taken Comments Blood Pressure 129/80 01/19/2020 11:00 AM CDT Pulse 83 01/19/2020 11:00 AM CDT Temperature 36.3 C (97.4 F) 01/19/2020 12:00 PM CDT Respiratory Rate 19 01/19/2020 11:00 AM CDT Oxygen Saturation 98% 01/19/2020 11:00 AM CDT Inhaled Oxygen Concentration - - Weight 119.3 kg (263 lb) 01/16/2020 1:56 PM CDT Height 170.2 cm (5' 7") 01/15/2020 5:00 AM CDT Body Mass Index 41.19 01/15/2020 5:00 AM CDT documented in this encounter Discharge Summaries Farhan Lindo FNP - 01/19/2020 2:05 PM CDT RED TEAM (AMG) DISCHARGE SUMMARY DATE OF SERVICE: 01/19/20 ADMIT DATE: 01/10/2020 DISCHARGE DATE: 01/19/20 REASON FOR ADMISSION: cad FINAL DIAGNOSIS: Multiple vessel CAD s/p CABG HTN Volume overload Postop anemia Left buttock wound infection ACTIVE PROBLEMS: Patient Active Problem List Diagnosis Coronary arteriosclerosis in [place] artery CAD (coronary artery disease) S/P AVR S/P CABG (coronary artery bypass graft) Nonrheumatic aortic valve stenosis Dyslipidemia Essential hypertension Other emphysema Morbid obesity Acute on chronic diastolic congestive heart failure SIGNIFICANT LAB/X-RAYS: Recent Results (from the past 24 hour(s)) POCT GLUCOSE (AUTOMATED) Collection Time: 01/18/20 4:55 PM Result Value Ref Range POCT GLU 179 (H) 70 - 110 mg/dL POCT GLUCOSE (AUTOMATED) Collection Time: 01/18/20 7:40 PM Result Value Ref Range POCT GLU 169 (H) 70 - 110 mg/dL BASIC METABOLIC PANEL (NA, K, CL, CO2, GLUCOSE, BUN, CREATININE, CA) Collection Time: 01/19/20 3:30 AM Result Value Ref Range NA 141 135 - 145 mmol/L K 3.7 3.5 - 5.0 mmol/L CL 100 98 - 108 mmol/L CO2 TOTAL 35 (H) 23 - 31 mmol/L AGAP 6 2 - 16 BUN 41 (H) 7 - 23 mg/dL GLUCOSE 102 70 - 110 mg/dL CREATININE 1.17 0.60 - 1.25 mg/dL CALCIUM 7.8 (L) 8.6 - 10.6 mg/dL eGFR Calculation (Non-) 61.1 mL/min/1.73m2 eGFR Calculation () 74.1 mL/min/1.73m2 MAGNESIUM Collection Time: 01/19/20 3:30 AM Result Value Ref Range MAGNESIUM 2.1 1.7 - 2.4 mg/dL CBC WITH DIFFERENTIAL Collection Time: 01/19/20 3:30 AM Result Value Ref Range WBC 7.59 4.20 - 10.70 10*3/L RBC 2.65 (L) 4.26 - 5.52 10*6/L HGB 8.1 (L) 12.2 - 16.4 g/dL HCT 25.7 (L) 38.4 - 49.3 % MCV 97.0 (H) 81.7 - 95.6 fL MCH 30.6 26.1 - 32.7 pg MCHC 31.5 31.2 - 35.0 g/dL RDW-SD 53.1 (H) 38.5 - 51.6 fL RDW-CV 15.6 (H) 12.1 - 15.4 % PLT 276 150 - 328 10*3/L MPV 8.6 (L) 9.8 - 13.0 fL NRBC/100 WBC 0.5 0.0 - 10.0 /100 WBCs NRBC x10^3 0.04 10*3/L GRAN MAT (NEUT) % 65.3 % IMM GRAN % 1.40 % LYMPH % 19.4 % MONO % 9.1 % EOS % 4.3 % BASO % 0.5 % GRAN MAT x10^3(ANC) 4.95 1.99 - 6.95 10*3/uL IMM GRAN x10^3 0.11 (H) 0.00 - 0.06 10*3/uL LYMPH x10^3 1.47 1.09 - 3.23 10*3/uL MONO x10^3 0.69 0.36 - 1.02 10*3/uL EOS x10^3 0.33 0.06 - 0.53 10*3/uL BASO x10^3 0.04 0.01 - 0.09 10*3/uL POCT GLUCOSE (AUTOMATED) Collection Time: 01/19/20 8:24 AM Result Value Ref Range POCT GLU 128 (H) 70 - 110 mg/dL POCT GLUCOSE (AUTOMATED) Collection Time: 01/19/20 11:53 AM Result Value Ref Range POCT GLU 214 (H) 70 - 110 mg/dL VITAL SIGNS Vitals: 01/19/20 0600 01/19/20 0800 01/19/20 1000 01/19/20 1200 BP: 114/61 134/82 131/65 Pulse: 84 89 90 Resp: Temp: 36.4 C (97.5 F) 36.3 C (97.4 F) TempSrc: Oral Oral SpO2: 95% 97% 96% Weight: Height: HOSPITAL COURSE: Assessment: Juan Diego Damon is a 74 year old male admitted with: Coronary artery disease - S/P CABG Hypertension Hyperlipidemia Diabetes mellitus BPH GERD Plan: Postoperative care status post CABG Milrinone, Propofol, Epinephrine, Levophed drips IV fluids Resume home medications CT surgery following Blood pressure support as needed Follow chest tube drainage output ICU monitoring, follow blood pressure trend closely Following labs, electrolytes Follow Hgb trend, assess for postoperative bleeding DVT prophylaxis, Lovenox Beta deyvi Antihyperlipidemic Sliding scale insulin, follow blood sugar trend, adjust medications as needed 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 Estes was present during patient encounter, examined patient at bedside , all questions answered Plan discussed with patient 01/12/2020 Currently still intubated and sedated Discussed with pulmonary and cardiothoracic surgery today Will attempt to wean off of ventilator support today Drains still in place Monitoring drain output Following blood sugar closely Sliding scale as needed We'll hold patient's medications orally for now Increase activity once extubated Further recommendations will be based on this patient's clinical course 01/13/2020 Currently still intubated and sedated Yesterday SBT attempted but failed, off epi drip and off flolan now. Will attempt to wean off of ventilator support today Drains still in place Monitoring drain output Following blood sugar closely Sliding scale as needed Hold patient's medications orally for now Acute blood loss anemia intra op s/p 2 U PRBC with appropriate response. On DAPT therapy. Increase activity once extubated Further recommendations will be based on this patient's clinical course 01/13 Extubated OOBC today PT, OT Speech consult for FEES Doing well Chest tubes per CTS Aspirin, statin Fenofibrate started today IV lasix, remains edematous. Continue ICU care 01/15/2020 Chest tubes out On 4L nasal cannula OOBC today, will use bed side commode Calos remains in today as he's on IV lasix. Will reassess tomorrow ICU care PT, OT Am labs. Monitor Cr. 01/16/2020 Remains on IV lasix Still mildly overloaded Calos in place Adjust insulin, BG has been high Chest tubes out, saturating well on 3L OOB, PT, OT. To rehab early next week. AM labs. 01/16 Plan on going to cardiac rehab on Friday Move to IMCU today AM labs, want to follow Hgb and creatinine closely Lasix po 40bid 01/17 Remains anemic Scant psuedomonas on wound cx, add cipro Continue wound care Pending rehab DISCHARGE CONDITION: good DIET: Cardiac and diabetic ACTIVITY: as tolerated DISCHARGE MEDICATIONS: Juan Diego Damon Home Medication Instructions TRI:[id number] Printed on:01/19/20 1076 Medication Information acetaminophen 325 mg tablet Take 2 tablets by mouth every 6 (six) hours as needed for Pain (scale 1-3). aspirin 81 mg EC tablet Take 1 tablet by mouth daily. atorvastatin 20 mg tablet Take 1 tablet by mouth at bedtime. carvediloL 6.25 mg tablet Take 1 tablet by mouth 2 (two) times daily with meals. clopidogreL 75 mg tablet Take 1 tablet by mouth daily. fenofibrate micronized 134 mg capsule Take 1 capsule by mouth daily. finasteride 5 mg tablet Take 5 mg by mouth daily. furosemide 40 mg tablet Take 1 tablet by mouth every morning and evening. gemfibrozil 600 mg tablet Take 600 mg by mouth 2 (two) times daily before breakfast and dinner. glipiZIDE 10 mg tablet Take 10 mg by mouth 2 (two) times daily before breakfast and dinner. insulin glargine 100 unit/mL injection inject 40 Units under the skin 2 (two) times daily. insulin regular human Soln injection inject under the skin before meals and at bedtime. lisinopril 20 mg tablet Take 1 tablet by mouth daily. metFORMIN 500 mg tablet Take 1 tablet by mouth 2 (two) times daily with meals. nystatin 100,000 unit/gram ointment Apply to area(s) 2 (two) times daily. omeprazole 20 mg capsule Take 20 mg by mouth daily. tamsulosin 0.4 mg 24 hr capsule Take 0.4 mg by mouth 2 (two) times daily. DISCHARGE: Inpatient Rehab FOLLOW-UP APPOINTMENT: PCP CT Surgery TIME SPENT: Greater than 30 minutes. SHEA [facility] [phone] documented in this encounter Progress Notes Kai Biggs SW - 01/19/2020 2:00 PM CDT Care Management Discharge Disposition Note (DCDN) 5-2-1 Interventions: Clear discharge plan 5-2-1 Providers: Patternmaker Pressure Cast/Granular Operator;Physician;Nurse 5-2-1 Patient Capacity Improvements: Transportation arrangements Discharge Plan for ongoing care and services: Rehabilitation Is this a new referral: Yes Patient Choice completed for referred services: Yes Discharge location(s): Rehabilitation location: [facility], [address], [place], [place] () [phone] (F) [phone] Patient choice completed for referred services: Yes Discussed with patient/patients family involved in decision making: Yes Patient or family caregiver understands, and agrees with discharge plan. Community resources/referrals made or provided to patient: No Transportation: Ambulance Mental Status: Alert & Oriented to Person,Place & Time Living Arrangement: Other Other living arrangement: PT HAS GARAGE APT NEXT TO SIRIA العراقي DAUGHTER [facility] [phone] Address of living arrangement: [address] [place] [address] Funding Resources: Medicare A & B;Commercial Nursing informed of discharge plan: Yes Name of RN informed: Estimated discharge date: 01/19/20 Time: Additional Information: JOHNNY Name & Contact number: SPIKE Monzon The following information has been provided to the facility noted above: reason for the patient discharge or transfer; patients physical and psychosocial status; summary of care, treatment, servicesprovided to patient; and the patient progress toward goals. Supriya Forbes SLP - 01/19/2020 12:44 PM CDTSPEECH LANGUAGE PATHOLOGY Daily Progress Note - 01/19/2020 12:15-12:24 Juan Diego Damon : 1945 Age: [age] year old Sex: male SUBJECTIVE: Pt sitting up in bed eating lunch. Pt denied any difficulty with swallowing or chewing since diet upgrade yesterday. Pt denied difficulty with thin liquids. RN reported no observable issues. 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 Treatment was provided due to oropharyngeal dysphagia. Progress on short term goals was as follows: Swallowing: - Patient will tolerate the least restricted diet texture without overt s/sx of aspiration or other negative effects on medical condition. Pt currently on mechanical soft diet and thin liquids. He was seen during part of a meal. Mastication of the meat on the mechanical soft diet was mildly prolonged, but he was able to achieve oral clearance with assistance of a liquid wash. He produced one throat-clear following thin liquid during the meal. No other overt s/s aspiration noted. He remains afebrile and WBC is WNL. He has transitioned toroom air. Chest x-ray today: FINDINGS: The heart is slightly enlarged, but it is not as large as noted yesterday. The lungs are moderately well expanded and clear except for mild basilar subsegmental atelectasis on the left and a small pleural effusion blunting the left costophrenic angle. CONTINUE GOAL - Patient will demonstrate swallow precautions while eating a meal or snack 80% of the time with minimal cues. Pt independently demonstrated swallow precautions during a meal 100% of the time by taking single sips at a time and alternating liquids and solids. GOAL MET - Patient will complete base of tongue, strap muscle, and laryngeal elevation exercises with moderate cues 80% of the time. Pt declined to do swallow exercises, stating he needed to be re-positioned so he could take a nap. RN notified. Pt has written swallow exercises still in the room. GOAL CRITERIA MET in previous session. ASSESSMENT: Juan Diego Damon met additional goals and appears to be tolerating a mechanical soft diet with thin liquids without negative effects on medical condition since upgrade yesterday afternoon. He did produce a throat-clear after thin liquid 1x during a meal, but no other overt s/s aspiration. Attempted to engage patient in swallow exercises this date to improve swallow physiology, but patient declined due tobeing tired. Pt has demonstrated all swallow exercises in previous sessions adequately and has written instructions for all exercises. Recommend 1 additional FISHERIES OFFICER session tomorrow if patient remains in-house to ensure he is continuing to consume current diet textures without overt s/s aspiration or negative effects. PLAN: 1. Continue mechanical soft diet and thin liquids. Swallow precautions: sit fully upright/chair, small single sips/bites, alternate sips/bites and remain upright for 30 minutes after meals. 2. Continue FISHERIES OFFICER services in-house for ~1 more visit if patient remains in-house tomorrow. Supriya Hicks M.S., [facility]-FISHERIES OFFICER Speech-Language Pathologist Pager: [phone] Office: [phone] signed by Supriya Hicks, FISHERIES OFFICER at 01/19/2020 1:02 PM Kendra Downing OT - 01/19/2020 9:40 AM CDTOCCUPATIONAL THERAPY NOTE: Discharge Recommendations: Primary Discharge Plan: Rehabilitation hospital Equipment Recommendations: Defer to facility Precautions: Weight bearing status: No lifting greater than 5 lbs. General: Fall, logroll and Sternal, ICU continuous monitoring, O2 via nC Bracing: N/A S: Patient agreeable to participate in occupational therapy. "I need to use the toilet again" PAIN Pre-treatment: 5/10 pain at buttocks. Post-treatment: 5/10 pain at Buttocks. Nursing Notified and Repositioning Provided. O: Patient found sitting upright in bedside chair. Vital signs stable and Patient seen for co-tx with Physical Therapist Assistance Aislinn Mann and rehab technician Shun Brody. . Patient seen this date for the following: ADL Training Patient maintains sternal precautions (with reminders) throughout session. Patient was Mod A x 2 to transfer to bedside commode Patient was Dep for dale care +urine +BM Patient was Mod A x 2 to transfer back to bedside chair. Patient was setup for oral hygiene Patient walked 6ft to prepare for walking to restroom. See PT note for specifics. Patient left reclining in bedside chair with call stevens in reach. Nursing present and Vital signs stable . A: Patient exhibited Good participation in therapy and responded well to treatment this session. Patient is progressing toward goal(s) 1 and 3. Patient met goal(s) 6. Pain, Poor endurance and Persistent weakness remain(s) a limiting factor. P: Functional motor treatment, Patient/Caregivier Education, Daily living activities and Therapeuticexercises - Possible D/C to Rehab today Kendra Quigley OTR License# [id number] Department of Occupational Therapy [facility]- Fri, Fri, and Friday [phone] Total Timed Treatment Codes: 45 Min Total Treatment Time: 45 MinElectronically signed by Kendra Quigley OT at 9:47 AM Kai Pool SW - 01/19/2020 9:14 AM CDTSocial Worker Note Updated clinicals sent to [facility] fax [phone] STEPHANIE Carr- JAVI Isidro Blank MD - 01/19/2020 9:06 AM CDT Cardiothoracic Surgery Date of Service: 01/19/2020 09:07 S/P CABG AVR PHYSICAL EXAM: Vitals: 01/19/20 0300 01/19/20 0400 01/19/20 0500 01/19/20 0600 BP: 113/51 109/55 114/61 Pulse: 76 79 85 84 Resp: 25 30 23 20 Temp: 36.4 C (97.6 F) TempSrc: Oral SpO2: 96% 95% 94% 95% Weight: Height: Intake/Output Summary (Last 24 hours) at 01/19/2020 0907 Last data filed at 01/19/2020 0400 Gross per 24 hour Intake Output 650 ml Net -650 ml Lungs: clear to auscultation bilaterally Cardio: S1, S2 normal; no murmurs, rubs or gallops Abdomen: soft; non-tender; non-distended; normoactive bowel sounds LABS: Admission on 01/05/2020, Discharged on 01/06/2020 Component Date Value PROTIME PATIENT 01/05/2020 11.8 INR 01/05/2020 1.1 NA 01/05/2020 143 K 01/05/2020 4.0 CL 01/05/2020 107 CO2 TOTAL 01/05/2020 23 AGAP 01/05/2020 13 BUN 01/05/2020 28* GLUCOSE 01/05/2020 108 CREATININE 01/05/2020 0.89 CALCIUM 01/05/2020 8.9 eGFR Calculation (Non-Af* 01/05/2020 83.8 eGFR Calculation (Airam* 01/05/2020 101.6 WBC 01/05/2020 7.17 RBC 01/05/2020 4.37 HGB 01/05/2020 13.4 HCT 01/05/2020 40.6 MCV 01/05/2020 92.9 MCH 01/05/2020 30.7 MCHC 01/05/2020 33.0 RDW-SD 01/05/2020 49.7 RDW-CV 01/05/2020 14.8 PLT 01/05/2020 246 MPV 01/05/2020 9.3* NRBC/100 WBC 01/05/2020 0.0 NRBC x10^3 01/05/2020 <0.01 GRAN MAT (NEUT) % 01/05/2020 62.5 IMM GRAN % 01/05/2020 0.60 LYMPH % 01/05/2020 22.5 MONO % 01/05/2020 8.4 EOS % 01/05/2020 5.2 BASO % 01/05/2020 0.8 GRAN MAT x10^3(ANC) 01/05/2020 4.49 IMM GRAN x10^3 01/05/2020 0.04 LYMPH x10^3 01/05/2020 1.61 MONO x10^3 01/05/2020 0.60 EOS x10^3 01/05/2020 0.37 BASO x10^3 01/05/2020 0.06 HGB A1C 01/05/2020 7.6* POCT GLU 01/05/2020 195* POCT GLU 01/05/2020 238* ACTLR 01/05/2020 289* POCT GLU 01/05/2020 256* POCT GLU 01/06/2020 252* ACTLR 01/05/2020 270* RADIOLOGY: No final results containing an impression from the past 48 hours were found. ASSESSMENT/PLAN Juan Diego Damon is a 74 year old maleS/P AVR, CABG Feels better PT, OT Wires removed Discharge planning END OF DAILY PROGRESS NOTE HOSPITAL COURSE CURRENT MEDICATIONS - reviewed. Current Facility-Administered Medications Medication Dose Route Frequency Last Rate Last Dose lidocaine 5 % ointment Topical BID carvediloL (COREG) tablet 6.25 mg 6.25 mg Oral BID MEALS 6.25 mg at 01/17 183 furosemide (LASIX) tablet 40 mg 40 mg Oral QAM+PM 40 mg at 01/18/20 183 mupirocin (BACTROBAN OINT) 2 % skin ointment Topical TID NaCl 0.9% (NS) injection 10 mL 10 mL Slow IV Push PRN nystatin (MYCOSTATIN) ointment Topical BID insulin glargine (LANTUS U-100) injection 40 Units 40 Units Subcutaneous BID 40 Units at 01/18/202112 ipratropium (ATROVENT) 0.02 % nebulizer solution 0.5 mg 0.5 mg Inhalation PRN fenofibrate micronized (LOFIBRA) capsule 134 mg 134 mg Oral DAILY 134 mg at 01/18/20 0834 aspirin chewable tablet 81 mg 81 mg Oral DAILY 81 mg at 01/18/20 0834 propofol IV infusion 5-75 mcg/kg/min IV Infusion TITRATE Stopped at 01/12 0825 acetaminophen (TYLENOL) suppository 650 mg 650 mg Rectal Q6HPRN acetaminophen (TYLENOL) tablet 650 mg 650 mg Oral Q6HPRN 650 mg at 0916 cardioplegic (PLEGISOL) perfusion solution PRN 1,000 mL at 01/11/20 0811 clopidogreL (PLAVIX) tablet 75 mg 75 mg Oral DAILY 75 mg at 01/18/20 0834 D5W-LR IV infusion 1,000 mL 1,000 mL IV Infusion CONTINUOUS Stopped at 1828 dextrose 50 % in water (D50W) injection 25 mL 25 mL Slow IV Push PRN DOBUTamine (DOBUTREX) 500 mg in 250 mL (Fixed Dose) D5W infusion RTU 2.5- 20 mcg/kg/min IV Infusion TITRATE Stopped at 01/14/20 1200 EPINEPHrine HCl in 0.9 % NaCl 4 mg/250 mL (16 mcg/mL) infusion RTU 0.01- 0.7 mcg/kg/min IV Infusion TITRATE Stopped at 01/13/20 0530 glucagon (GLUCAGEN DIAGNOSTIC KIT) injection 1 mg 1 mg Intramuscular PRN heparin (porcine) injection 5,000 Units 5,000 Units Subcutaneous Q12H 5, 000 Units at 01/17/201941 heparin 1,000 unit/mL 30,000 Units in NaCl 0.9% (NS) 1,000 mL OR irrigation PRN 1,000 mL at01/11/20 0757 heparin 1,000 unit/mL 5,000 Units in NaCl 0.9% (NS) 500 mL OR irrigation PRN 500 mL at 01/11/20 0810 milrinone in D5W (PRIMACOR) 40 mg/200 mL infusion RTU 0.125-0.75 mcg/kg/ min IV Infusion TITRATE Stopped at 01/12/20 0424 NaCl 0.9% (NS) bolus infusion 250 mL 250 mL IV Infusion PRN - SEE INSTRUCTIONS NORepinephrine 4 mg in D5W 250 mL infusion RTU 0.05-3 mcg/kg/min IV Infusion TITRATE Stopped at 01/12/20 0541 ondansetron (ZOFRAN (PF)) injection 4 mg 4 mg Slow IV Push Q6HPRN 4 mg at 01/14/20 0905 papaverine 60 mg in NaCl 0.9% (NS) 60 mL OR irrigation PRN 60 mL at 08/22 0809 acetaminophen (TYLENOL) tablet 650 mg 650 mg Oral Q6HPRN 650 mg at 0434 atorvastatin (LIPITOR) tablet 20 mg 20 mg Oral QHS 20 mg at 01/18/201941 chlorhexidine (KIKI-HEX) 4 % liquid Topical PRE-PROCEDURE ONCE finasteride (PROSCAR) tablet 5 mg 5 mg Oral DAILY 5 mg at 01/18/20 0836 omeprazole (PRILOSEC) capsule 20 mg 20 mg Oral DAILY 20 mg at 01/18/20 0834 Sliding Scale Insulin-Regular + Fsbg Testing Subcutaneous AC+HS 2 Units at 01/18/202112 tamsulosin (FLOMAX) capsule 0.4 mg 0.4 mg Oral BID 0.4 mg at 01/18/201941 Kristina Denis, VAC PRESS OPERATOR - 01/19/2020 9:04 AM CDTPhysical Therapy Progress Note: Recommendations: Primary discharge plan: rehabilitation hospital Equipment recommendations: defer to facility PAIN: -Pain Description: aching -Pain Location: buttocks -Pain rating before treatment: does not rate, After treatment: does not rate -Pain Management: Nursing Notified PRECAUTIONS: Weight Bearing Precaution: WBAT General Precautions: General, Fall, Sternal oxygen: Nasal canula Bracing/Cast present or required:N/A S: Patient agreeable to working with PT. ARNOLD reina PT to wok with patient O: Patient met Up in chair. Patient seen for the following: Transfers: -Sit to stand x 2 reps: Moderate assist x 1-2 using no device -Stand to sit x 2 reps: Moderate assist x 1-2 using no device -Stand pivot transfer x 3 reps: Moderate assist x 2 -Static/dynamic standing balance: Poor+ -Verbal cueing provided for correct hand placement and correct use of AD - cued provided for postural adjustment - cued provided to maintain sternal precautions Gait: Assisted patient with ambulation as follows: 6 feet using Rolling Walker and Maximal assist Patient presenting with Step-to gait pattern. with maximal instability and no LOB -cued provided for RW management and krissy LE sequence ( provided demo cueing on correct technique) - cued provided for postural adjustment - patient presenting with R LE hyperextension during stance phase - patient presenting with increase L step length during swing phase - cued provided to decrease L step length to improve balance - provided patient with 1 x sitting rest break due to c/o fatigue After session, patient sitting on BSC with OT in room and call stevens provided. RN notified. A: Patient tolerated session well. Patient progressing toward goals #2, #3, #4. Patient with improved activity tolerance since previous session. Patient able to tolerate gait training today. However, patient with self limiting gait due to c/o fatigue and krissy LE's weakness. P: PT will - attempt to increase ambulation next session. Total Timed Tx Codes in Minutes: 34 Min Total Treatment Time in Minutes: 34 Min Kristina Mann PTA Pager # [phone] Supervising PT Erika Grayson PT, DPT Ángel Morrissey MD - 01/19/2020 8:26 AM CDT [facility] Progress Note Date of Service: 01/19/2020 Chief Complaint: Follow-up of wound SUBJECTIVE: 74-year-old male with a past medical history of diabetes mellitus, hypertension , coronary artery disease is being seen for follow-up of his gluteal wound. We have started the combination of Bactroban, nystatin and lidocaine ointments for pain control to the area. Current Facility-Administered Medications Medication Dose Route Frequency Last Rate Last Dose lidocaine 5 % ointment Topical BID carvediloL (COREG) tablet 6.25 mg 6.25 mg Oral BID MEALS 6.25 mg at 01/17 furosemide (LASIX) tablet 40 mg 40 mg Oral QAM+PM 40 mg at 01/18/20 183 mupirocin (BACTROBAN OINT) 2 % skin ointment Topical TID NaCl 0.9% (NS) injection 10 mL 10 mL Slow IV Push PRN nystatin (MYCOSTATIN) ointment Topical BID insulin glargine (LANTUS U-100) injection 40 Units 40 Units Subcutaneous BID 40 Units at 01/18/20 2113 ipratropium (ATROVENT) 0.02 % nebulizer solution 0.5 mg 0.5 mg Inhalation PRN fenofibrate micronized (LOFIBRA) capsule 134 mg 134 mg Oral DAILY 134 mg at 01/18/20 0834 aspirin chewable tablet 81 mg 81 mg Oral DAILY 81 mg at 01/18/20 0834 propofol IV infusion 5-75 mcg/kg/min IV Infusion TITRATE Stopped at 01/12 0825 acetaminophen (TYLENOL) suppository 650 mg 650 mg Rectal Q6HPRN acetaminophen (TYLENOL) tablet 650 mg 650 mg Oral Q6HPRN 650 mg at 0916 cardioplegic (PLEGISOL) perfusion solution PRN 1,000 mL at 01/11/20 0811 clopidogreL (PLAVIX) tablet 75 mg 75 mg Oral DAILY 75 mg at 01/18/20 0834 D5W-LR IV infusion 1,000 mL 1,000 mL IV Infusion CONTINUOUS Stopped at 1828 dextrose 50 % in water (D50W) injection 25 mL 25 mL Slow IV Push PRN DOBUTamine (DOBUTREX) 500 mg in 250 mL (Fixed Dose) D5W infusion RTU 2.5- 20 mcg/kg/min IV Infusion TITRATE Stopped at 01/14/20 1200 EPINEPHrine HCl in 0.9 % NaCl 4 mg/250 mL (16 mcg/mL) infusion RTU 0.01- 0.7 mcg/kg/min IV Infusion TITRATE Stopped at 01/13/20 0530 glucagon (GLUCAGEN DIAGNOSTIC KIT) injection 1 mg 1 mg Intramuscular PRN heparin (porcine) injection 5,000 Units 5,000 Units Subcutaneous Q12H 5, 000 Units at 01/17/201941 heparin 1,000 unit/mL 30,000 Units in NaCl 0.9% (NS) 1,000 mL OR irrigation PRN 1,000 mL at01/11/20 0757 heparin 1,000 unit/mL 5,000 Units in NaCl 0.9% (NS) 500 mL OR irrigation PRN 500 mL at 01/11/20 0810 milrinone in D5W (PRIMACOR) 40 mg/200 mL infusion RTU 0.125-0.75 mcg/kg/ min IV Infusion TITRATE Stopped at 01/12/20 0424 NaCl 0.9% (NS) bolus infusion 250 mL 250 mL IV Infusion PRN - SEE INSTRUCTIONS NORepinephrine 4 mg in D5W 250 mL infusion RTU 0.05-3 mcg/kg/min IV Infusion TITRATE Stopped at 01/12/20 0541 ondansetron (ZOFRAN (PF)) injection 4 mg 4 mg Slow IV Push Q6HPRN 4 mg at 01/14/20 0905 papaverine 60 mg in NaCl 0.9% (NS) 60 mL OR irrigation PRN 60 mL at 08/22 0809 acetaminophen (TYLENOL) tablet 650 mg 650 mg Oral Q6HPRN 650 mg at 0434 atorvastatin (LIPITOR) tablet 20 mg 20 mg Oral QHS 20 mg at 01/18/20 194 chlorhexidine (KIKI-HEX) 4 % liquid Topical PRE-PROCEDURE ONCE finasteride (PROSCAR) tablet 5 mg 5 mg Oral DAILY 5 mg at 01/18/20 0836 omeprazole (PRILOSEC) capsule 20 mg 20 mg Oral DAILY 20 mg at 01/18/20 0834 Sliding Scale Insulin-Regular + Fsbg Testing Subcutaneous AC+HS 2 Units at 01/18/20 211 tamsulosin (FLOMAX) capsule 0.4 mg 0.4 mg Oral BID 0.4 mg at 01/18/20 194 Allergies Allergen Reactions Ciprofloxacin Rash Pcn [Penicillins] Rash Family History Problem Relation Age of Onset NC (myocardial infarction) Mother 60s Social History Socioeconomic History Marital status: Spouse name: Not on file Number of children: Not on file Years of education: Not on file Highest education level: Not on file Occupational History Occupation: retired Social Needs Financial resource strain: Not on file Food insecurity: Worry: Not on file Inability: Not on file Transportation needs: Medical: Not on file Non-medical: Not on file Tobacco Use Smoking status: Former Smoker Years: 40.00 Types: Cigarettes Last attempt to quit: 11/03/2001 Years since quittin.2 Smokeless tobacco: Never Used Substance and Sexual Activity Alcohol use: Not on file Drug use: Not on file Sexual activity: Not on file Lifestyle Physical activity: Days per week: Not on file Minutes per session: Not on file Stress: Not on file Relationships Social connections: Talks on phone: Not on file Gets together: Not on file Attends adventist service: Not on file Active member of [...] file Social History Narrative Not on file REVIEW OF SYSTEMS: 14 point system review done. Pertinent positives noted. PHYSICAL EXAM: Patient Vitals for the past 24 hrs: BP Temp Temp src Pulse Resp SpO2 01/19/20 0600 114/61 84 20 95 % 01/19/20 0500 85 23 94 % 01/19/20 0400 109/55 36.4 C (97.6 F) Oral 79 30 95 % 01/19/20 0300 113/51 76 25 96 % 01/19/20 0200 97/46 76 16 95 % 01/19/20 0100 113/54 80 15 97 % 01/19/20 0000 136/59 36.6 C (97.8 F) Oral 81 16 95 % 01/18/20 2300 97/49 76 20 94 % 01/18/20 2200 116/51 78 23 97 % 01/18/20 2100 98/50 99 19 90 % 01/18/20 2000 121/49 36.7 C (98 F) Oral 80 28 96 % 01/18/20 1900 117/62 86 14 93 % 01/18/20 1730 88 23 95 % 01/18/20 1715 91 19 97 % 01/18/20 1700 115/60 86 21 96 % 01/18/20 1645 83 24 95 % 01/18/20 1630 103 27 97 % 01/18/20 1615 85 01/18/20 1600 (!) 148/94 36.5 C (97.7 F) Axillary 95 21 99 % 01/18/20 1530 86 01/18/20 1515 88 24 95 % 01/18/20 1500 123/74 123 24 95 % 01/18/20 1445 88 22 95 % 01/18/20 1430 80 26 97 % 01/18/20 1415 93 24 92 % 01/18/20 1400 137/46 82 25 95 % 01/18/20 1345 78 25 95 % 01/18/20 1330 82 24 95 % 01/18/20 1315 86 23 (!) 79 % 01/18/20 1300 113/60 84 27 96 % 01/18/20 1245 87 22 93 % 01/18/20 1230 83 25 95 % 01/18/20 1215 83 25 95 % 01/18/20 1200 119/60 36.6 C (97.9 F) Oral 84 22 94 % 01/18/20 1115 80 17 93 % 01/18/20 1100 (!) 84/47 81 20 95 % 01/18/20 1045 79 17 95 % 01/18/20 1030 122/59 81 20 96 % 01/18/20 1015 83 13 94 % 01/18/20 1000 86 23 96 % 01/18/20 0945 91 22 94 % 01/18/20 0930 96 (!) 31 91 % 01/18/20 0830 97 19 95 % Intake/Output Summary (Last 24 hours) at 01/19/2020 0826 Last data filed at 01/19/2020 0400 Gross per 24 hour Intake Output 650 ml Net -650 ml General: alert; no apparent distress HEENT: normocephalic atraumatic Neck: supple, no lymphadenopathy, full range of motion Lungs: no apparent distress Cardio: S1, S2 normal Abdomen: soft : deferred Extremities: slight edema Skin: Wound etiology:Pressure Anatomic location: Right buttock cheek Age of wound: ACUTE Wound Description: Size:5 cm x 8 cm. Central tissue with more deep tissue injury type of appearance. Stage: Unstageable, deep tissue injury Exudate: amount SCANT Surrounding skin:Slight erythema Maceration: PRESENT Edges:Open Epithelialization: NOT PRESENT Tissue Bed: GRANULATION,deep tissue injury noted centrally Necrotic Tissue: NOT PRESENT Tenderness or pain: TENDERNESS Neuro: cranial nerves intact LABS/IMAGING - reviewed, pertinent results as below: CBC WBC (10*3/L) Date Value 01/19/2020 7.59 RBC (10*6/L) Date Value 01/19/2020 2.65 (L) PLT (10*3/L) Date Value 01/19/2020 276 HGB (g/dL) Date Value 01/19/2020 8.1 (L) HCT (%) Date Value 01/19/2020 25.7 (L) CMP NA (mmol/L) Date Value 01/19/2020 141 K (mmol/L) Date Value 01/19/2020 3.7 CALCIUM (mg/dL) Date Value 01/19/2020 7.8 (L) CL (mmol/L) Date Value 01/19/2020 100 BUN (mg/dL) Date Value 01/19/2020 41 (H) CREATININE (mg/dL) Date Value 01/19/2020 1.17 GLUCOSE (mg/dL) Date Value 01/19/2020 102 CO2 TOTAL (mmol/L) Date Value 01/19/2020 35 (H) ALBUMIN (g/dL) Date Value 01/10/2020 4.4 T PROTEIN (g/dL) Date Value 01/10/2020 8.0 TOTAL BILI (mg/dL) Date Value 01/10/2020 0.3 ALTv (U/L) Date Value 01/10/2020 17 AST(SGOT) (U/L) Date Value 01/10/2020 30 ALK PHOS (U/L) Date Value 01/10/2020 112 No results found for: ESRWEST No results found for: CRP No results found for: PALB RADIOLOGY: No final results containing an impression from the past 2 days were found. ASSESSMENT/PLAN: Juan Diego Damon is a 74 year old male with PMH as listed above, admitted to the hospital with: Left buttock wound, pressure, unstageable, acquired while in facility. We'll combine Bactroban, nystatin, lidocaine 5% ointment and apply to the area twice a day. Mepilex foam. Offloading of the area. Nutritional support Ángel Rachel MD [facility] [phone] signed by Ángel Rachel MD at 01/19/2020 8:57 AM Kai Pool SW - 01/18/2020 3:58 PM CDTSocial Worker Note [facility] [address] [place] [address] Karma, nurse liaison, [facility], ph [phone], stated center medical specialist at [facility] states patient hemoglobin needs to be at 8 before admitting to [facility]. STEPHANIE Carr- AC Deborah Merino MD - 01/18/2020 3:07 PM CDT AM PROGRESS NOTE 01/18/2020 Subjective: Patient seen & examined. Events reviewed. Objective: Vitals: 01/18/20 1045 01/18/20 1100 01/18/20 1115 01/18/20 1200 BP: (!) 84/47 119/60 Pulse: 79 81 80 84 Resp: Temp: TempSrc: SpO2: 95% 95% 93% 94% Weight: Height: General: awake, alert, no distress HEENT: NC, AT, PERRLA, EOMI, MMM, anicteric sclera Neck: no JVD/lymphadenopathy CV: RRR, no murmurs, rubs, gallops Lungs: clear to auscultation bilaterally Abdomen: soft, NT, ND, (+)BS Skin: no rashes Extremities: no clubbing, cyanosis, edema Neuro: CN 2-12 intact, no focal deficits Psych: oriented x 3, normal affect Labs: reviewed Current Facility-Administered Medications: carvediloL (COREG) tablet 6.25 mg, 6.25 mg, Oral, BID MEALS, Ollie, afa Mo Tyler Zaidi MD, 6.25 mg at 01/18/20 0834 furosemide (LASIX) tablet 40 mg, 40 mg, Oral, QAM+PM, Amanuel, Negrito Blancas , DO, 40 mg at 01/18/20 0834 mupirocin (BACTROBAN OINT) 2 % skin ointment, , Topical, TID, Ángel Rachel MD NaCl 0.9% (NS) injection 10 mL, 10 mL, Slow IV Push, PRN, Isidro Pulido MD nystatin (MYCOSTATIN) ointment, , Topical, BID, Ángel Rachel MD insulin glargine (LANTUS U-100) injection 40 Units, 40 Units, Subcutaneous , BID, ClementGhazala MD, 40 Units at 01/18/20 0944 ipratropium (ATROVENT) 0.02 % nebulizer solution 0.5 mg, 0.5 mg, Inhalation , PRN, Syeda Morse MD fenofibrate micronized (LOFIBRA) capsule 134 mg, 134 mg, Oral, DAILY, Chary Martinez MD, 134 mgat 01/18/20 0834 aspirin chewable tablet 81 mg, 81 mg, Oral, DAILY, Isidro Pulido MD, 81 mg at 01/18/20 0834 propofol IV infusion, 5-75 mcg/kg/min, IV Infusion, TITRATE, Syeda Morse MD, Stopped at 01/13/20 0825 acetaminophen (TYLENOL) suppository 650 mg, 650 mg, Rectal, Q6HPRN, Syeda Morse MD acetaminophen (TYLENOL) tablet 650 mg, 650 mg, Oral, Q6HPRN, Syeda Morse MD, 650 mg at 01/17/20 0916 cardioplegic (PLEGISOL) perfusion solution, , , PRN, Isidro Pulido MD, 1, 000 mL at 01/11/20 0811 clopidogreL (PLAVIX) tablet 75 mg, 75 mg, Oral, DAILY, Syeda Morse MD, 75 mg at 01/18/200834 D5W-LR IV infusion 1,000 mL, 1,000 mL, IV Infusion, CONTINUOUS, Syeda Morse MD, Stopped at 01/11/20 1828 dextrose 50 % in water (D50W) injection 25 mL, 25 mL, Slow IV Push, PRN, Syeda Morse MD DOBUTamine (DOBUTREX) 500 mg in 250 mL (Fixed Dose) D5W infusion RTU, 2.5- 20 mcg/kg/min, IV Infusion, TITRATE, Syeda Morse MD, Stopped at 01/14/20 1200 EPINEPHrine HCl in 0.9 % NaCl 4 mg/250 mL (16 mcg/mL) infusion RTU, 0.01- 0.7 mcg/kg/min, IV Infusion, TITRATE, Syeda Morse MD, Stopped at 0530 glucagon (GLUCAGEN DIAGNOSTIC KIT) injection 1 mg, 1 mg, Intramuscular, PRN , Syeda Morse MD heparin (porcine) injection 5,000 Units, 5,000 Units, Subcutaneous, Q12H, Syeda Morse MD, 5,000 Units at 01/18/20 0835 heparin 1,000 unit/mL 30,000 Units in NaCl 0.9% (NS) 1,000 mL OR irrigation , , , PRN, Isidro Pulido MD, 1,000 mL at 01/11/20 0757 heparin 1,000 unit/mL 5,000 Units in NaCl 0.9% (NS) 500 mL OR irrigation, , , John RICHARDSON Shuab, MD, 500 mL at 01/11/20 0810 milrinone in D5W (PRIMACOR) 40 mg/200 mL infusion RTU, 0.125-0.75 mcg/kg/ min, IV Infusion, TITRATE, Isidro Pulido MD, Stopped at 01/12/20 0424 NaCl 0.9% (NS) bolus infusion 250 mL, 250 mL, IV Infusion, PRN - SEE INSTRUCTIONS, Syeda Morse MD NORepinephrine 4 mg in D5W 250 mL infusion RTU, 0.05-3 mcg/kg/min, IV Infusion, TITRATE, Syeda Morse MD, Stopped at 01/12/20 0541 ondansetron (ZOFRAN (PF)) injection 4 mg, 4 mg, Slow IV Push, Q6HPRN, Syeda Morse MD, 4 mg at 01/14/20 0905 papaverine 60 mg in NaCl 0.9% (NS) 60 mL OR irrigation, , , PRN, ChurchvilleIsidro siegel MD, 60 mL at 01/11/20 0809 acetaminophen (TYLENOL) tablet 650 mg, 650 mg, Oral, Q6HPRN, Rivera Fernández MD , 650 mg at 01/18/20 0434 atorvastatin (LIPITOR) tablet 20 mg, 20 mg, Oral, QHS, Rivera Fernández MD, 20 mg at 01/17/202017 chlorhexidine (KIKI-HEX) 4 % liquid, , Topical, PRE-PROCEDURE ONCE, Isidro Pulido MD finasteride (PROSCAR) tablet 5 mg, 5 mg, Oral, DAILY, Rivera Fernández MD, 5 mg at 01/18/20 0836 omeprazole (PRILOSEC) capsule 20 mg, 20 mg, Oral, DAILY, Rivera Fernández MD, 20 mg at 01/18/20 0834 Sliding Scale Insulin-Regular + Fsbg Testing, , Subcutaneous, AC+HS, Rivera Fernández MD, 4 Units at 01/18/20 1320 tamsulosin (FLOMAX) capsule 0.4 mg, 0.4 mg, Oral, BID, Rivera Fernández MD, 0.4 mg at 01/18/20 0834 Assessment: Juan Diego Damon is a 74 year old male admitted with: Coronary artery disease - S/P CABG Hypertension Hyperlipidemia Diabetes mellitus BPH GERD Plan: Postoperative care status post CABG Milrinone, Propofol, Epinephrine, Levophed drips IV fluids Resume home medications CT surgery following Blood pressure support as needed Follow chest tube drainage output ICU monitoring, follow blood pressure trend closely Following labs, electrolytes Follow Hgb trend, assess for postoperative bleeding DVT prophylaxis, Lovenox Beta deyvi Antihyperlipidemic Sliding scale insulin, follow blood sugar trend, adjust medications as needed 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 Estes was present during patient encounter, examined patient at bedside , all questions answered Plan discussed with patient 01/12/2020 Currently still intubated and sedated Discussed with pulmonary and cardiothoracic surgery today Will attempt to wean off of ventilator support today Drains still in place Monitoring drain output Following blood sugar closely Sliding scale as needed We'll hold patient's medications orally for now Increase activity once extubated Further recommendations will be based on this patient's clinical course 01/13/2020 Currently still intubated and sedated Yesterday SBT attempted but failed, off epi drip and off flolan now. Will attempt to wean off of ventilator support today Drains still in place Monitoring drain output Following blood sugar closely Sliding scale as needed Hold patient's medications orally for now Acute blood loss anemia intra op s/p 2 U PRBC with appropriate response. On DAPT therapy. Increase activity once extubated Further recommendations will be based on this patient's clinical course 01/13 Extubated OOBC today PT, OT Speech consult for FEES Doing well Chest tubes per CTS Aspirin, statin Fenofibrate started today IV lasix, remains edematous. Continue ICU care 01/15/2020 Chest tubes out On 4L nasal cannula OOBC today, will use bed side commode Live remains in today as he's on IV lasix. Will reassess tomorrow ICU care PT, OT Am labs. Monitor Cr. 01/16/2020 Remains on IV lasix Still mildly overloaded Live in place Adjust insulin, BG has been high Chest tubes out, saturating well on 3L OOB, PT, OT. To rehab early next week. AM labs. 01/16 Plan on going to cardiac rehab on Friday Move to IMCU today AM labs, want to follow Hgb and creatinine closely Lasix po 40bid 01/17 Remains anemic Scant psuedomonas on wound cx, add cipro Continue wound care Pending rehab Deborah Alvarez MD [facility] Supriya Forbes, ZAID - 01/18/2020 11:08 AM CDTSPEECH LANGUAGE PATHOLOGY Daily Progress Note - 01/18/2020 09:35-09:55; 12:07-12:40 Juan Diego Nelson : 1945 Age: [age] year old Sex: male SUBJECTIVE: Pt sitting in chair. Pt stated he didn't enjoy the taste of the breakfast and doesn't like the pureed breakfast options. He wants to switch back to mechanical soft. Pt was seen in the morning and afternoon. 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 Treatment was provided due to oropharyngeal dysphagia. Progress on short term goals was as follows: Swallowing: - Patient will tolerate the least restricted diet texture without overt s/sx of aspiration or other negative effects on medical condition. Pt currently on pureed diet and nectar thick liquids. He produced throat-clear x1/5 NTL cup sips. Noovert s/s aspiration following purees during a meal. No coughs or change in voice quality with either purees or NTL. No desats. Temp ( 24hrs), Av.4 C (97.6 F), Min:35.9 C (96.7 F), Max:36.7 C (98 F) . WBC is WNL. Trialed thin liquids during a meal with purees. Throat-clear produced 1x following thin liquid during the meal, but no coughs or other s/s aspiration. Voice quality remained consistently clear. CONTINUE GOAL - Patient will verbalize swallowing precautions with minimal cues 80% of the time. Pt required no cues to verbalize/recall swallow precautions 100% of the time. GOAL MET - Patient will demonstrate swallow precautions while eating a meal or snack 80% of the time with minimal cues. Pt complied with single sips at a time during thin liquid trials alone and during a meal. Pt's breakfast tray was off to the side from earlier and none of the liquids remaining on the tray were thickened. When asked, patient stated he did not have any thickener, however, multiple thickener packets were on his tray table in front of him. Educated patient about thickening liquids until cleared for thinliquids due to risk for aspiration. Pt verbalized understanding and then verbalized the correct ratio of thickening powder to liquid for proper nectar thick consistency. During later session during lunch, patient independently verbalized need to thicken liquids to nectar thick consistency. Pt independently alternated liquids with solids during lunch. CONTINUE GOAL - Patient will complete base of tongue, strap muscle, and laryngeal elevation exercises with moderate cues 80% of the time. Pt completed Christy, effortful swallow, supraglottic swallow, and bulldog neck stretches with 80% accuracy with minimal models and moderate cues. CONTINUE GOAL - Patient will consume trials of thin liquids via cup or straw without overt s/ s aspiration 90% of the time using swallow techniques as needed. Pt consumed trials of thin liquids via tsp x5 and via cup x10 using the supraglottic swallow strategy for increased airway protection. He had wet voice x1/10 cup sip trials that resolved with prompted throat-clear. No other overt s/ s aspiration. Pt then consumed trials of thin liquids via cup x5 without use of swallow techniques and had no overt s/s aspiration. GOAL MET Education: provided education to RN about updated recommendations. ASSESSMENT: Juan Diego Damon showed progress and met 2 goals. He tolerated trials of thin liquids alone and during a meal without overt s/s aspiration 90% of the time. He is progressing with accuracy in completing swallowing exercises and swallowing techniques. Pt requested to switch back to mechanical soft diet due to not liking purees. He is appropriate for upgrade to thin liquids. FISHERIES OFFICER will continue to see patient to ensure ongoing safety with thin liquids and to target swallow exercises. PLAN: 1. Upgrade to mechanical soft diet and thin liquids. Swallow precautions: sit fully upright/chair, small single sips/bites, alternate sips/bites and remain upright for 30 minutes after meals. 2. Continue FISHERIES OFFICER services in house 2-5x/wk until goals are met or until discharge. Supriya Hicks M.S., [facility]-FISHERIES OFFICER Speech-Language Pathologist Pager: [phone] Office: [phone] signed by Supriya Hicks, FISHERIES OFFICER at 01/18/2020 12:50 PM Ángel Morrissey MD - 01/18/2020 10:58 AM CDT [facility] Progress Note Date of Service: 01/18/2020 Chief Complaint: Follow-up of wound SUBJECTIVE: 74-year-old male with a past medical history of diabetes mellitus, hypertension , coronary artery disease is being seen for follow-up of his gluteal wound. We have started the combination of Bactroban, nystatin and lidocaine ointments for pain control to the area. Current Facility-Administered Medications Medication Dose Route Frequency Last Rate Last Dose carvediloL (COREG) tablet 6.25 mg 6.25 mg Oral BID MEALS 6.25 mg at 01/17 0834 furosemide (LASIX) tablet 40 mg 40 mg Oral QAM+PM 40 mg at 01/18/20 0834 mupirocin (BACTROBAN OINT) 2 % skin ointment Topical TID NaCl 0.9% (NS) injection 10 mL 10 mL Slow IV Push PRN nystatin (MYCOSTATIN) ointment Topical BID insulin glargine (LANTUS U-100) injection 40 Units 40 Units Subcutaneous BID 40 Units at 01/18/20 0944 ipratropium (ATROVENT) 0.02 % nebulizer solution 0.5 mg 0.5 mg Inhalation PRN fenofibrate micronized (LOFIBRA) capsule 134 mg 134 mg Oral DAILY 134 mg at 01/18/20 0834 aspirin chewable tablet 81 mg 81 mg Oral DAILY 81 mg at 01/18/20 0834 propofol IV infusion 5-75 mcg/kg/min IV Infusion TITRATE Stopped at 01/12 0825 acetaminophen (TYLENOL) suppository 650 mg 650 mg Rectal Q6HPRN acetaminophen (TYLENOL) tablet 650 mg 650 mg Oral Q6HPRN 650 mg at 0916 cardioplegic (PLEGISOL) perfusion solution PRN 1,000 mL at 01/11/20 0811 clopidogreL (PLAVIX) tablet 75 mg 75 mg Oral DAILY 75 mg at 01/18/20 0834 D5W-LR IV infusion 1,000 mL 1,000 mL IV Infusion CONTINUOUS Stopped at 1828 dextrose 50 % in water (D50W) injection 25 mL 25 mL Slow IV Push PRN DOBUTamine (DOBUTREX) 500 mg in 250 mL (Fixed Dose) D5W infusion RTU 2.5- 20 mcg/kg/min IV Infusion TITRATE Stopped at 01/14/20 1200 EPINEPHrine HCl in 0.9 % NaCl 4 mg/250 mL (16 mcg/mL) infusion RTU 0.01- 0.7 mcg/kg/min IV Infusion TITRATE Stopped at 01/13/20 0530 glucagon (GLUCAGEN DIAGNOSTIC KIT) injection 1 mg 1 mg Intramuscular PRN heparin (porcine) injection 5,000 Units 5,000 Units Subcutaneous Q12H 5, 000 Units at 01/18/200835 heparin 1,000 unit/mL 30,000 Units in NaCl 0.9% (NS) 1,000 mL OR irrigation PRN 1,000 mL at01/11/20 0757 heparin 1,000 unit/mL 5,000 Units in NaCl 0.9% (NS) 500 mL OR irrigation PRN 500 mL at 01/11/20 0810 milrinone in D5W (PRIMACOR) 40 mg/200 mL infusion RTU 0.125-0.75 mcg/kg/ min IV Infusion TITRATE Stopped at 01/12/20 0424 NaCl 0.9% (NS) bolus infusion 250 mL 250 mL IV Infusion PRN - SEE INSTRUCTIONS NORepinephrine 4 mg in D5W 250 mL infusion RTU 0.05-3 mcg/kg/min IV Infusion TITRATE Stopped at 01/12/20 0541 ondansetron (ZOFRAN (PF)) injection 4 mg 4 mg Slow IV Push Q6HPRN 4 mg at 01/14/20 0905 papaverine 60 mg in NaCl 0.9% (NS) 60 mL OR irrigation PRN 60 mL at 08/22 0809 acetaminophen (TYLENOL) tablet 650 mg 650 mg Oral Q6HPRN 650 mg at 0434 atorvastatin (LIPITOR) tablet 20 mg 20 mg Oral QHS 20 mg at 01/17/202017 chlorhexidine (KIKI-HEX) 4 % liquid Topical PRE-PROCEDURE ONCE finasteride (PROSCAR) tablet 5 mg 5 mg Oral DAILY 5 mg at 01/18/20 0836 omeprazole (PRILOSEC) capsule 20 mg 20 mg Oral DAILY 20 mg at 01/18/20 0834 Sliding Scale Insulin-Regular + Fsbg Testing Subcutaneous AC+HS 1 Units at 01/18/20 0944 tamsulosin (FLOMAX) capsule 0.4 mg 0.4 mg Oral BID 0.4 mg at 01/18/20 0834 Allergies Allergen Reactions Ciprofloxacin Rash Pcn [Penicillins] Rash Family History Problem Relation Age of Onset NC (myocardial infarction) Mother 60s Social History Socioeconomic History Marital status: Spouse name: Not on file Number of children: Not on file Years of education: Not on file Highest education level: Not on file Occupational History Occupation: retired Social Needs Financial resource strain: Not on file Food insecurity: Worry: Not on file Inability: Not on file Transportation needs: Medical: Not on file Non-medical: Not on file Tobacco Use Smoking status: Former Smoker Years: 40.00 Types: Cigarettes Last attempt to quit: 11/03/2001 Years since quittin.2 Smokeless tobacco: Never Used Substance and Sexual Activity Alcohol use: Not on file Drug use: Not on file Sexual activity: Not on file Lifestyle Physical activity: Days per week: Not on file Minutes per session: Not on file Stress: Not on file Relationships Social connections: Talks on phone: Not on file Gets together: Not on file Attends adventist service: Not on file Active member of [...] file Social History Narrative Not on file REVIEW OF SYSTEMS: 14 point system review done. Pertinent positives noted. PHYSICAL EXAM: Patient Vitals for the past 24 hrs: BP Temp Temp src Pulse Resp SpO2 01/18/20 1030 122/59 81 20 96 % 01/18/20 1015 83 13 94 % 01/18/20 1000 86 23 96 % 01/18/20 0945 91 22 94 % 01/18/20 0930 96 (!) 31 91 % 01/18/20 0830 97 19 95 % 01/18/20 0815 96 20 94 % 01/18/20 0800 131/83 35.9 C (96.7 F) Axillary 90 01/18/20 0745 84 24 95 % 01/18/20 0700 131/64 88 17 94 % 01/18/20 0640 89 19 93 % 01/18/20 0600 (!) 155/80 89 17 92 % 01/18/20 0400 (!) 140/66 36.4 C (97.6 F) Oral 81 19 95 % 01/18/20 0200 (!) 147/64 88 21 96 % 01/18/20 0000 123/54 36.6 C (97.8 F) Oral 89 24 95 % 01/17/20 2200 106/54 86 21 94 % 01/17/20 2000 136/68 36.6 C (97.8 F) Oral 95 13 95 % 01/17/20 1800 124/62 112 23 97 % 01/17/20 1700 112/52 92 17 99 % 01/17/20 1600 36.7 C (98 F) 89 24 98 % 01/17/20 1500 131/65 17 01/17/20 1400 129/62 22 01/17/20 1300 123/48 100 19 95 % 01/17/20 1200 36.6 C (97.9 F) 66 22 95 % 01/17/20 1100 129/73 100 23 96 % Intake/Output Summary (Last 24 hours) at 01/18/2020 1058 Last data filed at 01/18/2020 0600 Gross per 24 hour Intake 500 ml Output 2050 ml Net -1550 ml General: alert; no apparent distress HEENT: normocephalic atraumatic Neck: supple, no lymphadenopathy, full range of motion Lungs: no apparent distress Cardio: S1, S2 normal Abdomen: soft : deferred Extremities: slight edema Skin: Wound etiology: Pressure Anatomic location: Right buttock cheek Age of wound: ACUTE Wound Description: Size: 5 cm x 8 cm. Central tissue with more deep tissue injury type of appearance. Stage: Unstageable, deep tissue injury Exudate: amount SCANT Surrounding skin: Slight erythema Maceration: PRESENT Edges: Open Epithelialization: NOT PRESENT Tissue Bed: GRANULATION, deep tissue injury noted centrally Necrotic Tissue: NOT PRESENT Tenderness or pain: TENDERNESS Neuro: cranial nerves intact LABS/IMAGING - reviewed, pertinent results as below: CBC WBC (10*3/L) Date Value 01/18/2020 8.18 RBC (10*6/L) Date Value 01/18/2020 2.58 (L) PLT (10*3/L) Date Value 01/18/2020 256 HGB (g/dL) Date Value 01/18/2020 8.0 (L) HCT (%) Date Value 01/18/2020 25.2 (L) CMP NA (mmol/L) Date Value 01/18/2020 143 K (mmol/L) Date Value 01/18/2020 4.0 CALCIUM (mg/dL) Date Value 01/18/2020 7.9 (L) CL (mmol/L) Date Value 01/18/2020 101 BUN (mg/dL) Date Value 01/18/2020 36 (H) CREATININE (mg/dL) Date Value 01/18/2020 1.07 GLUCOSE (mg/dL) Date Value 01/18/2020 120 (H) CO2 TOTAL (mmol/L) Date Value 01/18/2020 35 (H) ALBUMIN (g/dL) Date Value 01/10/2020 4.4 T PROTEIN (g/dL) Date Value 01/10/2020 8.0 TOTAL BILI (mg/dL) Date Value 01/10/2020 0.3 ALTv (U/L) Date Value 01/10/2020 17 AST(SGOT) (U/L) Date Value 01/10/2020 30 ALK PHOS (U/L) Date Value 01/10/2020 112 No results found for: ESRWEST No results found for: CRP No results found for: PALB RADIOLOGY: No final results containing an impression from the past 2 days were found. ASSESSMENT/PLAN: Juan Diego Damon is a 74 year old male with PMH as listed above, admitted to the hospital with: Left buttock wound, pressure, unstageable, acquired while in facility. We'll combine Bactroban, nystatin, lidocaine 5% ointment and apply to the area twice a day. Mepilex foam. Offloading of the area. Nutritional support. Patient educated at length Ángel Rachel MD [facility] [phone] signed by Ángel Rachel MD at 01/18/2020 12:16 PM LELOTBhavani Albarado MD - 01/18/2020 10:26 AM CDT Critical Care Medicine Progress Note Date of Service: 01/18/2020 Hospital admission date: 01/10/2020 Last 24 hour events (major events): No events overnight Subjective: No incisional pain Intake/Output: Intake/Output Summary (Last 24 hours) at 01/18/2020 1027 Last data filed at 01/18/2020 0600 Gross per 24 hour Intake 500 ml Output 2050 ml Net -1550 ml Current Facility-Administered Medications: carvediloL (COREG) tablet 6.25 mg, 6.25 mg, Oral, BID MEALS, Barbara Levin MD, 6.25 mg at 01/18/20 0834 furosemide (LASIX) tablet 40 mg, 40 mg, Oral, QAM+PM, Negrito Vital DO, 40 mg at 01/18/20 0834 mupirocin (BACTROBAN OINT) 2 % skin ointment, , Topical, TID, Ángel Rachel MD NaCl 0.9% (NS) injection 10 mL, 10 mL, Slow IV Push, PRN, Isidro Pulido MD nystatin (MYCOSTATIN) ointment, , Topical, BID, Ángel Rachel MD insulin glargine (LANTUS U-100) injection 40 Units, 40 Units, Subcutaneous , BID, Ghazala Vaughan MD, 40 Units at 01/18/20 0944 ipratropium (ATROVENT) 0.02 % nebulizer solution 0.5 mg, 0.5 mg, Inhalation , PRN, Syeda Morse MD fenofibrate micronized (LOFIBRA) capsule 134 mg, 134 mg, Oral, DAILY, Chary Martinez MD, 134 mgat 01/18/20 0834 aspirin chewable tablet 81 mg, 81 mg, Oral, DAILY, Isidro Pulido MD, 81 mg at 01/18/20 0834 propofol IV infusion, 5-75 mcg/kg/min, IV Infusion, TITRATE, Syeda Morse MD, Stopped at 01/13/20 0825 acetaminophen (TYLENOL) suppository 650 mg, 650 mg, Rectal, Q6HPRN, Syeda Morse MD acetaminophen (TYLENOL) tablet 650 mg, 650 mg, Oral, Q6HPRN, Syeda Morse MD, 650 mg at 01/17/20 0916 cardioplegic (PLEGISOL) perfusion solution, , , PRN, Isidro Pulido MD, 1, 000 mL at 01/11/20 0811 clopidogreL (PLAVIX) tablet 75 mg, 75 mg, Oral, DAILY, Syeda Morse MD, 75 mg at 01/18/200834 D5W-LR IV infusion 1,000 mL, 1,000 mL, IV Infusion, CONTINUOUS, Syeda Morse MD, Stopped at 01/11/20 1828 dextrose 50 % in water (D50W) injection 25 mL, 25 mL, Slow IV Push, PRN, Syeda Morse MD DOBUTamine (DOBUTREX) 500 mg in 250 mL (Fixed Dose) D5W infusion RTU, 2.5- 20 mcg/kg/min, IV Infusion, TITRATE, Syeda Morse MD, Stopped at 01/14/20 1200 EPINEPHrine HCl in 0.9 % NaCl 4 mg/250 mL (16 mcg/mL) infusion RTU, 0.01- 0.7 mcg/kg/min, IV Infusion, TITRATE, Syeda Morse MD, Stopped at 0530 glucagon (GLUCAGEN DIAGNOSTIC KIT) injection 1 mg, 1 mg, Intramuscular, PRN , Syeda Morse MD heparin (porcine) injection 5,000 Units, 5,000 Units, Subcutaneous, Q12H, Syeda Morse MD, 5,000 Units at 01/18/20 0835 heparin 1,000 unit/mL 30,000 Units in NaCl 0.9% (NS) 1,000 mL OR irrigation , , , PRN, Isidro Pulido MD, 1,000 mL at 01/11/20 0757 heparin 1,000 unit/mL 5,000 Units in NaCl 0.9% (NS) 500 mL OR irrigation, , , John RICHARDSON Shuab, MD, 500 mL at 01/11/20 0810 milrinone in D5W (PRIMACOR) 40 mg/200 mL infusion RTU, 0.125-0.75 mcg/kg/ min, IV Infusion, TITRATE, Isidro Pulido MD, Stopped at 01/12/20 0424 NaCl 0.9% (NS) bolus infusion 250 mL, 250 mL, IV Infusion, PRN - SEE INSTRUCTIONS, Syeda Morse MD NORepinephrine 4 mg in D5W 250 mL infusion RTU, 0.05-3 mcg/kg/min, IV Infusion, TITRATELito Radheshyam, MD, Stopped at 01/12/20 0541 ondansetron (ZOFRAN (PF)) injection 4 mg, 4 mg, Slow IV Push, Q6HPRN, Syeda Morse MD, 4 mg at 01/14/20 0905 papaverine 60 mg in NaCl 0.9% (NS) 60 mL OR irrigation, , , PRN, Isidro Pulido MD, 60 mL at 01/11/20 0809 acetaminophen (TYLENOL) tablet 650 mg, 650 mg, Oral, Q6HPRN, Rivera Fernández MD , 650 mg at 01/18/20 0434 atorvastatin (LIPITOR) tablet 20 mg, 20 mg, Oral, QHS, Rivera Fernández MD, 20 mg at 01/17/202017 chlorhexidine (KIKI-HEX) 4 % liquid, , Topical, PRE-PROCEDURE ONCE, Isidro Pulido MD finasteride (PROSCAR) tablet 5 mg, 5 mg, Oral, DAILY, Rivera Fernández MD, 5 mg at 01/18/20 0836 omeprazole (PRILOSEC) capsule 20 mg, 20 mg, Oral, DAILY, Rivera Fernández MD, 20 mg at 01/18/20 0834 Sliding Scale Insulin-Regular + Fsbg Testing, , Subcutaneous, AC+HS, Rivera Fernández MD, 1 Units at 01/18/20 0944 tamsulosin (FLOMAX) capsule 0.4 mg, 0.4 mg, Oral, BID, Rivera Fernández MD, 0.4 mg at 01/18/20 0834 Physical Exam: Temp: [35.9 C (96.7 F)-36.7 C (98 F)] Heart Rate (monitor): [81-119] Pulse: [66-112] Resp: [13-24] BP: (106-155)/(48-80) MAP (mmHg): [73-98] General: arounsable; no acute distress HEENT: pupils equal, round, reactive to light Neck: supple, no JVD Lungs: clear bilaterally Cardio: regular rate and rhythm Abdomen: soft, non tender, non distended, bowel sounds + Extremities: no clubbing, cyanosis, minimal edema Skin: no rashes Neuro: no focal deficits Labs (pertinent only)/Imaging: Recent Results (from the past 24 hour(s)) POCT GLUCOSE (AUTOMATED) Collection Time: 01/17/20 12:09 PM Result Value Ref Range POCT GLU 239 (H) 70 - 110 mg/dL BASIC METABOLIC PANEL (NA, K, CL, CO2, GLUCOSE, BUN, CREATININE, CA) Collection Time: 01/17/20 4:16 PM Result Value Ref Range NA 143 135 - 145 mmol/L K 3.7 3.5 - 5.0 mmol/L CL 100 98 - 108 mmol/L CO2 TOTAL 34 (H) 23 - 31 mmol/L AGAP 9 2 - 16 BUN 40 (H) 7 - 23 mg/dL GLUCOSE 177 (H) 70 - 110 mg/dL CREATININE 0.96 0.60 - 1.25 mg/dL CALCIUM 8.0 (L) 8.6 - 10.6 mg/dL eGFR Calculation (Non-) 76.8 mL/min/1.73m2 eGFR Calculation () 93.1 mL/min/1.73m2 PHOSPHORUS Collection Time: 01/17/20 4:16 PM Result Value Ref Range PHOSPHORUS 2.5 2.5 - 5.0 mg/dL MAGNESIUM Collection Time: 01/17/20 4:16 PM Result Value Ref Range MAGNESIUM 2.0 1.7 - 2.4 mg/dL POCT GLUCOSE (AUTOMATED) Collection Time: 01/17/20 4:40 PM Result Value Ref Range POCT GLU 181 (H) 70 - 110 mg/dL POCT GLUCOSE (AUTOMATED) Collection Time: 01/17/20 8:11 PM Result Value Ref Range POCT GLU 158 (H) 70 - 110 mg/dL BASIC METABOLIC PANEL (NA, K, CL, CO2, GLUCOSE, BUN, CREATININE, CA) Collection Time: 01/18/20 4:38 AM Result Value Ref Range NA 143 135 - 145 mmol/L K 4.0 3.5 - 5.0 mmol/L CL 101 98 - 108 mmol/L CO2 TOTAL 35 (H) 23 - 31 mmol/L AGAP 7 2 - 16 BUN 36 (H) 7 - 23 mg/dL GLUCOSE 120 (H) 70 - 110 mg/dL CREATININE 1.07 0.60 - 1.25 mg/dL CALCIUM 7.9 (L) 8.6 - 10.6 mg/dL eGFR Calculation (Non-) 67.7 mL/min/1.73m2 eGFR Calculation () 82.1 mL/min/1.73m2 MAGNESIUM Collection Time: 01/18/20 4:38 AM Result Value Ref Range MAGNESIUM 2.2 1.7 - 2.4 mg/dL CBC WITH DIFFERENTIAL Collection Time: 01/18/20 4:38 AM Result Value Ref Range WBC 8.18 4.20 - 10.70 10*3/L RBC 2.58 (L) 4.26 - 5.52 10*6/L HGB 8.0 (L) 12.2 - 16.4 g/dL HCT 25.2 (L) 38.4 - 49.3 % MCV 97.7 (H) 81.7 - 95.6 fL MCH 31.0 26.1 - 32.7 pg MCHC 31.7 31.2 - 35.0 g/dL RDW-SD 53.7 (H) 38.5 - 51.6 fL RDW-CV 15.4 12.1 - 15.4 % PLT 256 150 - 328 10*3/L MPV 8.9 (L) 9.8 - 13.0 fL NRBC/100 WBC 0.5 0.0 - 10.0 /100 WBCs NRBC x10^3 0.04 10*3/L GRAN MAT (NEUT) % 69.1 % IMM GRAN % 1.20 % LYMPH % 16.5 % MONO % 8.9 % EOS % 3.9 % BASO % 0.4 % GRAN MAT x10^3(ANC) 5.65 1.99 - 6.95 10*3/uL IMM GRAN x10^3 0.10 (H) 0.00 - 0.06 10*3/uL LYMPH x10^3 1.35 1.09 - 3.23 10*3/uL MONO x10^3 0.73 0.36 - 1.02 10*3/uL EOS x10^3 0.32 0.06 - 0.53 10*3/uL BASO x10^3 0.03 0.01 - 0.09 10*3/uL POCT GLUCOSE (AUTOMATED) Collection Time: 01/18/20 7:34 AM Result Value Ref Range POCT GLU 149 (H) 70 - 110 mg/dL Assessment/Plan: Patient Active Problem List Diagnosis Coronary arteriosclerosis in [place] artery CAD (coronary artery disease) S/P AVR S/P CABG (coronary artery bypass graft) Nonrheumatic aortic valve stenosis Dyslipidemia Essential hypertension Other emphysema Morbid obesity Acute on chronic diastolic congestive heart failure Juan Diego Damon is a 74 year old male admitted with Neuro:Pain control withTylenol CV:Vasoplegic shockResolved, off all pressors and inotrops. CAD s/p CABG begin DAPT therapy. Volume overload improved on lasix Respiratory:Acute post operative respirator insufficiency CXR reviewed no focal consolidations or infiltrates, hasLLL atelectasis.C/w NC andIS. Maintain SpO2>92%. BIPAP qhs and PRN. COPD not in exacerbation add PRN nebs JUANA highly suspected needs PSG as outpatient GI:No active issues :No active issues ID:Completed vancomycin for surgical ppx, allergic to PCN Heme:Acute blood loss anemia intra op s/p 2 U PRBC with appropriate response. On DAPT therapy.Hb goal > 7 Endo:DM monitor sugar,c/w ISS MSK:No active issues Stress ulcer prophylaxis:PPI DVT prophylaxis:Heparin Nutrition:Cardiac low salt diet Code status:Full Bhavani Albarado MD Pulmonary and Critical Care Medicine Kassandra Gonzalez MD - 01/18/2020 10:11 AM CDT [facility] Cardiology progress note Date of Service: 01/18/2020 Reason for follow up: CAD, aortic valve disease, acute on chronic diastolic CHF Juan Diego Damon is a 74 years old male s/p CABG and AVR. Overall, patient reports feeling well and believes his breathing is improving. Denies chest pain, palpitations, dizziness, SOB. Medications: I have reviewed the patient's medications; see Medication Reconciliation. PHYSICAL EXAM (-)=Negative,(+)=Positive Temp: [35.9 C (96.7 F)-36.7 C (98 F)] Heart Rate (monitor): [81-119] Pulse: [66-112] Resp: [13-24] BP: (106-155)/(48-80) MAP (mmHg): [73-98] General: no apparent distress, obese Neck: no bruits, no JVD Lungs: clear to auscultation bilaterally Cardio: S1, S2, normal rate, regular; no murmurs, rubs or gallops Abdomen: non-distended, nontender Extremities: no clubbing, cyanosis. 1+ pitting edema of BLE Database TTE 09/2019 Interpretation Summary A two-dimensional transthoracic echocardiogram with M-mode and Doppler was performed. The study was technically limited. There is no comparison study available. There is mild concentric left ventricular hypertrophy. Ejection Fraction=55-60%. Diastolic function is impaired relaxation. The left ventricular wall motion is normal. Moderate valvular aortic stenosis. Tele: Sinus ECGs personally interpreted by me 01/16-01/18/2020: normal sinus rhythm, IVCD, non specific st-t changes Labs: CBC WBC (10*3/L) Date Value 01/18/2020 8.18 RBC (10*6/L) Date Value 01/18/2020 2.58 (L) PLT (10*3/L) Date Value 01/18/2020 256 HGB (g/dL) Date Value 01/18/2020 8.0 (L) HCT (%) Date Value 01/18/2020 25.2 (L) GRAN MAT x10^3(ANC) (10*3/uL) Date Value 01/18/2020 5.65 BMP NA (mmol/L) Date Value 01/18/2020 143 K (mmol/L) Date Value 01/18/2020 4.0 CALCIUM (mg/dL) Date Value 01/18/2020 7.9 (L) CL (mmol/L) Date Value 01/18/2020 101 GLUCOSE (mg/dL) Date Value 01/18/2020 120 (H) MAGNESIUM (mg/dL) Date Value 01/18/2020 2.2 PHOSPHORUS (mg/dL) Date Value 01/17/2020 2.5 BUN (mg/dL) Date Value 01/18/2020 36 (H) CREATININE (mg/dL) Date Value 01/18/2020 1.07 eGFR Calculation (Non-) (mL/min/1.73m2) Date Value 01/18/2020 67.7 eGFR Calculation () (mL/min/1.73m2) Date Value 01/18/2020 82.1 ASSESSMENT AND PLAN Principal Problem: CAD (coronary artery disease) Active Problems: S/P AVR S/P CABG (coronary artery bypass graft) Nonrheumatic aortic valve stenosis Dyslipidemia Essential hypertension Other emphysema Morbid obesity Acute on chronic diastolic congestive heart failure CAD--3v- CAD s/p CABG 01.11.2020 Appears to be clinically improving. - c/w DAPT, coreg - Continue lipitor at 20 mg and fenofibrate Acute on chronic HFpEF HTN Patient appears euvolemic on exam. Increase in CO2 points towards contraction alkalosis, Cr trendingupwards- now stable. Changed to PO Lasix yesterday. No need for sildenafil given pulmonary hypertension 2/2 volume overload. - continue Lasix 40mg PO bid Aortic stenosis s/p AVR bioprosthetic 01.11.2020 - c/w ASA Dyslipidemia - c/w Lipitor 20mg qhs and Fenofibrate Patient stable for DC to rehab from cardiac standpoint. Kassandra Garcias MD Junior Brand Manager Cardiology Kendra jasso, OT - 01/18/2020 9:39 AM CDTOCCUPATIONAL THERAPY NOTE: Discharge Recommendations: Primary Discharge Plan: Rehabilitation hospital Equipment Recommendations: Defer to facility Precautions: Weight bearing status: No lifting greater than 5 lbs. General: Fall, O2 per NC and Sternal, ICU continuous monitoring Bracing: N/A S: Patient agreeable to participate in occupational therapy. "I need to use the toilet" PAIN Pre-treatment:C/O pain in buttocks, reports nurse is aware and they are treating it, Does not rate pain. Post-treatment: Reports same pain O: Patient found sitting upright in bedside chair. Vital signs stable . Patient seen this date for the following: Nurse Zheng approved session. Patient seen for Co-Tx with Physical Therapist Aislinn Mann and National Account Executive Shun Brody due to anticipated level of care. Patient's HR was 95-115 BPM throughout session, with one episode of tachycardia to 141 BPM ADL Training Patient maintains sternal precautions throughout session- with frequent cues Reviewed sternal precautions with patient in regards to ADLs Patient washed face at setup, Donned socks at Dep (assisted minimally with pulling them up) Patient performed a sit to stand with Min A x3 to prepare for transfer to bedside commode. Patient sat back down rather quickly. Patient performed sit to stand again with Max A x 3 to transfer to bedside commode. Patient does not move his LE much during transfer. Patient was Dep for dale care after +BM and +urine (notified nurse) Patient was Max A x 3 to transfer back to chair (right leg twisted under him during transfer as he did not take a step with it). With this transfer patients heart rate increased. With cues to slow his breathing and reassurance that he was safe, his HR came back down. Therapeutic Exercise/Procedure Patient seen for AROM : Patient performed Shoulder flexion/extension, Shoulder circumduction and Elbow flexion/extension, Patient completed 3 sets of 10 reps Educated Patient about AROM for KRISSY UE: within sternal range. Patient/caregiver instructed to perform HEP 5 times per day, 10 repetitions. Patient/caregiver returns demonstration x 10 repetitions as follows: Tactile and verbal cues provided for correct technique. Educated about the importance of complying with all exercises to help increase overall strength, endurance, flexibility, and ROM for self-care independence. Patient/caregiver verbalized understanding to all discussed. Patient left sitting upright in bedside chair with call stevens in reach. Vital signs stable and speech therapist entered room to complete her session. . A: Patient exhibited Good participation in therapy and responded well to treatment this session. Patient is progressing toward goal(s) 1 and 3. Poor endurance and Persistent weakness remain(s) a limiting factor. Patient continues to present with Decreased independence with ADL and Decreased strength /endurance for functional activity and will benefit from continued OT services to address above areas and improve functional status. P: Patient/Caregivier Education, Equipment recommendations, Daily living activities, Therapeutic exercises and Neuromuscular Re-Education Kendra Quigley OTR License# [id number] Department of Occupational Therapy [facility]- Fri, Fri, and Friday [phone] Total Timed Treatment Codes: 45 Min Total Treatment Time: 45 MinElectronically signed by Kendra Quigley OT at 9:58 AM Kai Pool SW - 01/18/2020 9:36 AM CDTSocial Worker Note [facility] [address] [place] [id number] Rzt:[phone]. TIMO Carr Kristina Denis PTA - 01/18/2020 8:58 AM CDTPhysical Therapy Progress Note: Recommendations: Primary discharge plan: rehabilitation hospital Equipment recommendations: defer to facility PAIN: -Pain Description: aching -Pain Location: buttocks -Pain rating before treatment: does not rate, After treatment: does not rate -Pain Management: Nursing Notified PRECAUTIONS: Weight Bearing Precaution: WBAT General Precautions: General, Fall, Sternal oxygen: Nasal canula Bracing/Cast present or required:N/A S: Patient agreeable to working with PT. RN clear PT to work with patient. O: Patient met Up in chair. Patient seen for the following: Transfers: -Sit to stand: Minimal assist using no device -Stand to sit: Minimal assist using no device -Stand pivot transfer: Maximal assist x 3 -patient presenting dragging R LE during transfer -Static/dynamic standing balance: Poor+ -Verbal cueing provided for correct hand placement and correct use of AD - cued provided for postural adjustment - cued provided for krissy LE management Pre-gait: -Instructed patient with krissy marching however patient unable to perform due to c /o fatigue Therapeutic exercise: -instructed patient in the following: long arc quads, seated marching -patient instructed to perform HEP 3 times per day, 15 repetitions. -progressed patient to 15 reps -Educated the importance of compliance with performance of all exercises to help with increasing overall strength, endurance, flexibility, and ROM -patient verbalizing understanding to all discussed After session, patient Up in chair and call stevens provided. RN notified. A: Patient tolerated session fair. Patient progressing toward goals #2, #4. Patient unable to perform gait training today due to unable to march in place during standing. Patient presenting with krissy LE weakness during session. Supervising PT notified on patient's status. P: PT will - attempt pre-gait therex next session. Total Timed Tx Codes in Minutes: 45 Min Total Treatment Time in Minutes: 45 Min Kristina Mann PTA Pager # [phone] Supervising PT Erika Grayson PT, DPT Isidro Blank MD - 01/18/2020 7:48 AM CDT Cardiothoracic Surgery Date of Service: 01/18/2020 07:48 S/P AVR, CABG PHYSICAL EXAM: Vitals: 01/18/20 0000 01/18/20 0200 01/18/20 0400 01/18/20 0600 BP: 123/54 (!) 147/64 (!) 140/66 (!) 155/80 Pulse: 89 88 81 89 Resp: Temp: 36.6 C (97.8 F) 36.4 C (97.6 F) TempSrc: Oral Oral SpO2: 95% 96% 95% 92% Weight: Height: Intake/Output Summary (Last 24 hours) at 01/18/2020 0748 Last data filed at 01/18/2020 0600 Gross per 24 hour Intake 600 ml Output 2250 ml Net -1650 ml Lungs: clear to auscultation bilaterally Cardio: S1, S2 normal; no murmurs, rubs or gallops Abdomen: soft; non-tender; non-distended; normoactive bowel sounds LABS: Admission on 01/05/2020, Discharged on 01/06/2020 Component Date Value PROTIME PATIENT 01/05/2020 11.8 INR 01/05/2020 1.1 NA 01/05/2020 143 K 01/05/2020 4.0 CL 01/05/2020 107 CO2 TOTAL 01/05/2020 23 AGAP 01/05/2020 13 BUN 01/05/2020 28* GLUCOSE 01/05/2020 108 CREATININE 01/05/2020 0.89 CALCIUM 01/05/2020 8.9 eGFR Calculation (Non-Af* 01/05/2020 83.8 eGFR Calculation (Airam* 01/05/2020 101.6 WBC 01/05/2020 7.17 RBC 01/05/2020 4.37 HGB 01/05/2020 13.4 HCT 01/05/2020 40.6 MCV 01/05/2020 92.9 MCH 01/05/2020 30.7 MCHC 01/05/2020 33.0 RDW-SD 01/05/2020 49.7 RDW-CV 01/05/2020 14.8 PLT 01/05/2020 246 MPV 01/05/2020 9.3* NRBC/100 WBC 01/05/2020 0.0 NRBC x10^3 01/05/2020 <0.01 GRAN MAT (NEUT) % 01/05/2020 62.5 IMM GRAN % 01/05/2020 0.60 LYMPH % 01/05/2020 22.5 MONO % 01/05/2020 8.4 EOS % 01/05/2020 5.2 BASO % 01/05/2020 0.8 GRAN MAT x10^3(ANC) 01/05/2020 4.49 IMM GRAN x10^3 01/05/2020 0.04 LYMPH x10^3 01/05/2020 1.61 MONO x10^3 01/05/2020 0.60 EOS x10^3 01/05/2020 0.37 BASO x10^3 01/05/2020 0.06 HGB A1C 01/05/2020 7.6* POCT GLU 01/05/2020 195* POCT GLU 01/05/2020 238* ACTLR 01/05/2020 289* POCT GLU 01/05/2020 256* POCT GLU 01/06/2020 252* ACTLR 01/05/2020 270* RADIOLOGY: No final results containing an impression from the past 48 hours were found. ASSESSMENT/PLAN Juan Diego Damon is a 74 year old maleS/P AVR, CABG Feels better PT, OT Wires removed Discharge planning Decrease lasix Cr 1.1 END OF DAILY PROGRESS NOTE HOSPITAL COURSE CURRENT MEDICATIONS - reviewed. Current Facility-Administered Medications Medication Dose Route Frequency Last Rate Last Dose carvediloL (COREG) tablet 6.25 mg 6.25 mg Oral BID MEALS 6.25 mg at 01/16 1745 furosemide (LASIX) tablet 40 mg 40 mg Oral QAM+PM 40 mg at 01/17/20 1748 mupirocin (BACTROBAN OINT) 2 % skin ointment Topical TID Stopped at 1999 NaCl 0.9% (NS) injection 10 mL 10 mL Slow IV Push PRN nystatin (MYCOSTATIN) ointment Topical BID Stopped at 01/17/201999 insulin glargine (LANTUS U-100) injection 40 Units 40 Units Subcutaneous BID 40 Units at 01/17/202023 ipratropium (ATROVENT) 0.02 % nebulizer solution 0.5 mg 0.5 mg Inhalation PRN fenofibrate micronized (LOFIBRA) capsule 134 mg 134 mg Oral DAILY 134 mg at 01/17/20 0817 aspirin chewable tablet 81 mg 81 mg Oral DAILY 81 mg at 01/17/20 0819 propofol IV infusion 5-75 mcg/kg/min IV Infusion TITRATE Stopped at 01/12 0825 acetaminophen (TYLENOL) suppository 650 mg 650 mg Rectal Q6HPRN acetaminophen (TYLENOL) tablet 650 mg 650 mg Oral Q6HPRN 650 mg at 0916 cardioplegic (PLEGISOL) perfusion solution PRN 1,000 mL at 01/11/20 0811 clopidogreL (PLAVIX) tablet 75 mg 75 mg Oral DAILY 75 mg at 01/17/20 0819 D5W-LR IV infusion 1,000 mL 1,000 mL IV Infusion CONTINUOUS Stopped at 1828 dextrose 50 % in water (D50W) injection 25 mL 25 mL Slow IV Push PRN DOBUTamine (DOBUTREX) 500 mg in 250 mL (Fixed Dose) D5W infusion RTU 2.5- 20 mcg/kg/min IV Infusion TITRATE Stopped at 01/14/20 1200 EPINEPHrine HCl in 0.9 % NaCl 4 mg/250 mL (16 mcg/mL) infusion RTU 0.01- 0.7 mcg/kg/min IV Infusion TITRATE Stopped at 01/13/20 0530 glucagon (GLUCAGEN DIAGNOSTIC KIT) injection 1 mg 1 mg Intramuscular PRN heparin (porcine) injection 5,000 Units 5,000 Units Subcutaneous Q12H 5, 000 Units at 01/17/202018 heparin 1,000 unit/mL 30,000 Units in NaCl 0.9% (NS) 1,000 mL OR irrigation PRN 1,000 mL at01/11/20 0757 heparin 1,000 unit/mL 5,000 Units in NaCl 0.9% (NS) 500 mL OR irrigation PRN 500 mL at 01/11/20 0810 milrinone in D5W (PRIMACOR) 40 mg/200 mL infusion RTU 0.125-0.75 mcg/kg/ min IV Infusion TITRATE Stopped at 01/12/20 0424 NaCl 0.9% (NS) bolus infusion 250 mL 250 mL IV Infusion PRN - SEE INSTRUCTIONS NORepinephrine 4 mg in D5W 250 mL infusion RTU 0.05-3 mcg/kg/min IV Infusion TITRATE Stopped at 01/12/20 0541 ondansetron (ZOFRAN (PF)) injection 4 mg 4 mg Slow IV Push Q6HPRN 4 mg at 01/14/20 0905 papaverine 60 mg in NaCl 0.9% (NS) 60 mL OR irrigation PRN 60 mL at 08/22 0809 acetaminophen (TYLENOL) tablet 650 mg 650 mg Oral Q6HPRN 650 mg at 0434 atorvastatin (LIPITOR) tablet 20 mg 20 mg Oral QHS 20 mg at 01/17/202017 chlorhexidine (KIKI-HEX) 4 % liquid Topical PRE-PROCEDURE ONCE finasteride (PROSCAR) tablet 5 mg 5 mg Oral DAILY 5 mg at 01/17/20 08 omeprazole (PRILOSEC) capsule 20 mg 20 mg Oral DAILY 20 mg at 01/17/20 0818 Sliding Scale Insulin-Regular + Fsbg Testing Subcutaneous AC+HS 1 Units at 01/17/202022 tamsulosin (FLOMAX) capsule 0.4 mg 0.4 mg Oral BID 0.4 mg at 01/17/202017 Deborah Merino MD - 01/17/2020 3:08 PM CDT [facility] PROGRESS NOTE 01/17/2020 Subjective: Patient seen & examined. Events reviewed. Objective: Vitals: 01/17/20 1100 01/17/20 1200 01/17/20 1300 01/17/20 1400 BP: 129/73 123/48 129/62 Pulse: 100 66 100 Resp: 23 22 19 22 Temp: 36.6 C (97.9 F) TempSrc: SpO2: 96% 95% 95% Weight: Height: General: awake, alert, no distress HEENT: NC, AT, PERRLA, EOMI, MMM, anicteric sclera Neck: no JVD/lymphadenopathy CV: RRR, no murmurs, rubs, gallops Lungs: clear to auscultation bilaterally Abdomen: soft, NT, ND, (+)BS Skin: no rashes Extremities: no clubbing, cyanosis, edema Neuro: CN 2-12 intact, no focal deficits Psych: oriented x 3, normal affect Labs: reviewed Current Facility-Administered Medications: carvediloL (COREG) tablet 6.25 mg, 6.25 mg, Oral, BID MEALS, Ollie, Mostafa Mo Tyler Zaidi MD furosemide (LASIX) tablet 40 mg, 40 mg, Oral, QAM+PM, Negrito Vital DO lidocaine 1% (PF) (XYLOCAINE) injection 5 mL, 5 mL, Subcutaneous, PRN, Isidro Pulido MD NaCl 0.9% (NS) injection 10 mL, 10 mL, Slow IV Push, PRN, Isidro Pulido MD insulin glargine (LANTUS U-100) injection 40 Units, 40 Units, Subcutaneous , BID, Ghazala Vaughan MD, 40 Units at 01/17/20 0840 ipratropium (ATROVENT) 0.02 % nebulizer solution 0.5 mg, 0.5 mg, Inhalation , PRN, Syeda Morse MD fenofibrate micronized (LOFIBRA) capsule 134 mg, 134 mg, Oral, DAILY, Chary Martinez MD, 134 mgat 01/17/20 0817 aspirin chewable tablet 81 mg, 81 mg, Oral, DAILY, Isidro Pulido MD, 81 mg at 01/17/20 0819 propofol IV infusion, 5-75 mcg/kg/min, IV Infusion, TITRATE, Syeda Morse MD, Stopped at 01/13/20 0825 acetaminophen (TYLENOL) suppository 650 mg, 650 mg, Rectal, Q6HPRN, Syeda Morse MD acetaminophen (TYLENOL) tablet 650 mg, 650 mg, Oral, Q6HPRN, Syeda Morse MD, 650 mg at 01/17/20 0916 cardioplegic (PLEGISOL) perfusion solution, , , PRN, Isidro Pulido MD, 1, 000 mL at 01/11/20 0811 clopidogreL (PLAVIX) tablet 75 mg, 75 mg, Oral, DAILY, Syeda Morse MD, 75 mg at 01/17/200819 D5W-LR IV infusion 1,000 mL, 1,000 mL, IV Infusion, CONTINUOUS, Syeda Morse MD, Stopped at 01/11/20 1828 dextrose 50 % in water (D50W) injection 25 mL, 25 mL, Slow IV Push, PRN, Syeda Morse MD DOBUTamine (DOBUTREX) 500 mg in 250 mL (Fixed Dose) D5W infusion RTU, 2.5- 20 mcg/kg/min, IV Infusion, TITRLito VALDEZ Radheshyam, MD, Stopped at 01/14/20 1200 EPINEPHrine HCl in 0.9 % NaCl 4 mg/250 mL (16 mcg/mL) infusion RTU, 0.01- 0.7 mcg/kg/min, IV Infusion, Lito GARSIA Radheshyam, MD, Stopped at 0530 glucagon (GLUCAGEN DIAGNOSTIC KIT) injection 1 mg, 1 mg, Intramuscular, PRN , Syeda Morse MD heparin (porcine) injection 5,000 Units, 5,000 Units, Subcutaneous, Q12H, Syeda Morse MD, 5,000 Units at 01/17/20 0820 heparin 1,000 unit/mL 30,000 Units in NaCl 0.9% (NS) 1,000 mL OR irrigation , , , PRN, Isidro Pulido MD, 1,000 mL at 01/11/20 0757 heparin 1,000 unit/mL 5,000 Units in NaCl 0.9% (NS) 500 mL OR irrigation, , , PRN, Isidro Pulido MD, 500 mL at 01/11/20 0810 milrinone in D5W (PRIMACOR) 40 mg/200 mL infusion RTU, 0.125-0.75 mcg/kg/ min, IV Infusion, TITRJohn VALDEZ Shuab, MD, Stopped at 01/12/20 0424 NaCl 0.9% (NS) bolus infusion 250 mL, 250 mL, IV Infusion, PRN - SEE INSTRUCTIONS, Syeda Morse MD NORepinephrine 4 mg in D5W 250 mL infusion RTU, 0.05-3 mcg/kg/min, IV Infusion, TITRLito VALDEZ Radheshyam, MD, Stopped at 01/12/20 0541 ondansetron (ZOFRAN (PF)) injection 4 mg, 4 mg, Slow IV Push, Q6HPRN, Syeda Morse MD, 4 mg at 01/14/20 0905 papaverine 60 mg in NaCl 0.9% (NS) 60 mL OR irrigation, , , PRN, Isidro Pulido MD, 60 mL at 01/11/20 0809 acetaminophen (TYLENOL) tablet 650 mg, 650 mg, Oral, Q6HPRN, Rivera Fernández MD , 650 mg at 01/14/20 1600 atorvastatin (LIPITOR) tablet 20 mg, 20 mg, Oral, QHS, Rivera Fernández MD, 20 mg at 01/16/20 1934 chlorhexidine (KIKI-HEX) 4 % liquid, , Topical, PRE-PROCEDURE ONCE, Isidro Pulido MD finasteride (PROSCAR) tablet 5 mg, 5 mg, Oral, DAILY, Rivera Fernández MD, 5 mg at 01/17/20 0819 omeprazole (PRILOSEC) capsule 20 mg, 20 mg, Oral, DAILY, Rivera Fernández MD, 20 mg at 01/17/20 0818 Sliding Scale Insulin-Regular + Fsbg Testing, , Subcutaneous, AC+HS, Rivera Fernández MD, 5 Units at 01/17/20 1221 tamsulosin (FLOMAX) capsule 0.4 mg, 0.4 mg, Oral, BID, Rivera Fernández MD, 0.4 mg at 01/17/20 0819 Assessment: Juan Diego Damon is a 74 year old male admitted with: Coronary artery disease - S/P CABG Hypertension Hyperlipidemia Diabetes mellitus BPH GERD Plan: Postoperative care status post CABG Milrinone, Propofol, Epinephrine, Levophed drips IV fluids Resume home medications CT surgery following Blood pressure support as needed Follow chest tube drainage output ICU monitoring, follow blood pressure trend closely Following labs, electrolytes Follow Hgb trend, assess for postoperative bleeding DVT prophylaxis, Lovenox Beta deyvi Antihyperlipidemic Sliding scale insulin, follow blood sugar trend, adjust medications as needed 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 Estes was present during patient encounter, examined patient at bedside , all questions answered Plan discussed with patient 01/12/2020 Currently still intubated and sedated Discussed with pulmonary and cardiothoracic surgery today Will attempt to wean off of ventilator support today Drains still in place Monitoring drain output Following blood sugar closely Sliding scale as needed We'll hold patient's medications orally for now Increase activity once extubated Further recommendations will be based on this patient's clinical course 01/13/2020 Currently still intubated and sedated Yesterday SBT attempted but failed, off epi drip and off flolan now. Will attempt to wean off of ventilator support today Drains still in place Monitoring drain output Following blood sugar closely Sliding scale as needed Hold patient's medications orally for now Acute blood loss anemia intra op s/p 2 U PRBC with appropriate response. On DAPT therapy. Increase activity once extubated Further recommendations will be based on this patient's clinical course 01/13 Extubated OOBC today PT, OT Speech consult for FEES Doing well Chest tubes per CTS Aspirin, statin Fenofibrate started today IV lasix, remains edematous. Continue ICU care 01/15/2020 Chest tubes out On 4L nasal cannula OOBC today, will use bed side commode Live remains in today as he's on IV lasix. Will reassess tomorrow ICU care PT, OT Am labs. Monitor Cr. 01/16/2020 Remains on IV lasix Still mildly overloaded Live in place Adjust insulin, BG has been high Chest tubes out, saturating well on 3L OOB, PT, OT. To rehab early next week. AM labs. 01/16 Plan on going to cardiac rehab on Friday Move to [facility] today AM labs, want to follow Hgb and creatinine closely Lasix po 40bid Deborah Alvarez MD [facility] [place] [facility] TFKai Dhillon SW - 01/17/2020 1:55 PM CDTCare Management Continued Stay Assessment LOS Day: 7 Estimated /Planned Discharge Date: 01/19/20 male 74 year old Date CM/SPIKE last Face to Face completed with patient/family: 01/17/20 Funding source: Payor: MEDICARE / Plan: MEDICARE PART A & B / Product Type: Medicare / PCP:Flora Barrera Patient/Family/MPOA/Caregiver Engaged with Transitional Care Plan: yes Patient/Family/MPOA/Caregiver concurs with proposed discharge plan: yes Name, Relationship to Patient and contact number of individual acting on behalf of the patient: daughter Chief Complaint/Admitting Dx:[facility] Problems: CAD (coronary artery disease) S/P AVR S/P CABG (coronary artery bypass graft) Nonrheumatic aortic valve stenosis Dyslipidemia Essential hypertension Other emphysema Morbid obesity Acute on chronic diastolic congestive heart failure Summary of hospital course: S/P AVR, CABG CM/SPIKE Interventions/Resources provided: IRF referral CM/SW Interventions/Resources still needed: follow up with referral Anticipated Discharge Destination: Rehab Facility Anticipated DME needs: None Referrals sent: yes Has patient been accepted: yes What is the clinical care happening right now that must be done in the hospital and only the hospital: Patient appears euvolemic on exam. Increase in CO2 points towards contraction alkalosis, Cr trendingupwards. Will transition to PO Lasix. No need for sildenafil given pulmonary hypertension 2/2 volumeoverload. - d/c IV Lasix and Sildenafil - start Lasix 40mg PO bid Kristina Denis PTA - 01/17/2020 1:19 PM CDTPhysical Therapy Progress Note: Recommendations: Primary discharge plan: rehabilitation hospital Equipment recommendations: defer to facility PAIN: denies pain PRECAUTIONS: Weight Bearing Precaution: WBAT General Precautions: General, Fall, Sternal oxygen: Nasal canula Bracing/Cast present or required:N/A S: Patient agreeable to working with PT. RN clear PT to work with patient. Patient unable to recallsternal O: Patient met Up in chair, with daughter in room. Patient seen for the following: Bed mobility: - Rolling: Maximal assist - Sit to supine: Dependent - cued provided to maintain sternal precautions - cued provided for krissy LE management Transfers: -Sit to stand: Moderate assist, x 1-2 using no device -Stand to sit: Moderate assist using no device -Static/dynamic standing balance: Poor+ - cued provided for postural adjustment - cued provided to maintain sternal precautions Pre-Gait: -Instructed patient with lateral weight shifts x 10 reps with Moderate assist using rolling walker -cued provided for postural adjustment -Instructed patient with krissy marching -however patient unable to perform marching due to c/o weakness Therapeutic exercise: instructed patient in the following: ankle pumps, glut sets, heel slides, long arc quads, seated marching, patient/caregiver instructed to perform HEP 3 times per day, 10 repetitions. -Educated the importance of compliance with performance of all exercises to help with increasing overall strength, endurance, flexibility, and ROM -patient/caregiver verbalizing understanding to all discussed Patient provided with preferred teaching of verbal information on sternal precautions, functional mobility, krissy LE strengthening, pressure sore relief, and safety training. Shows readiness to learn. Verbal instruction teaching provided. Individual is able to read and verbalizes understanding of teaching provided. After session, patient Semi reclined in bed, SCD sleeves on and machine turned on, with wedge pillowunderneath L side to help prevent pressure sores and call stevens provided. RN notified. A: Patient tolerated session fair. Patient progressing toward goals #1, #2, #4. Patient with improved functional transfers since previous session. However, patient unable to ambulate due to c/o krissy LE weakness. Inform RN and patient to have patient back in chair in PM. Also, inform RN and patientto practice sit to stands in PM to improve weight bearing on krissy LE's. P: PT will - attempt pre-gait therex next session. Total Timed Tx Codes in Minutes: 40 Min Total Treatment Time in Minutes: 40 Min Kristina Mann PTA Pager # [phone] Supervising PT Erika Grayson PT, DPT Kendra Downing OT - 01/17/2020 12:15 PM CDTOCCUPATIONAL THERAPY NOTE: Discharge Recommendations: Primary Discharge Plan: Rehabilitation hospital Equipment Recommendations: Defer to facility Precautions: Weight bearing status: No lifting greater than 5 lbs. General: Fall, Sternal, logroll and O2 via NC, Live, ICU continuous monitoring Bracing: N/A S: Patient agreeable to participate in occupational therapy. "I'd like to stand up" PAIN Patient reports pain in buttocks at beginning of session. Does not rate or c/o pain during session except when scooting forward in chair. Nursing aware of pain. O: Patient found sitting upright in bedside chair. Daughter present and Vital signs stable . Patientseen this date for the following: Patient seen with Nitroglycerin Supervisor Aislinn Mann and National Account Executive Shun Brody due to anticipated level of care. ADL Training Patient maintains sternal precautions throughout session- with cueing Patient performed sit to stand x 3 requiring Min-Mod A to prepare for transfer to bedside commode. Patient unable to weight shift while standing, BUE were shaking from effort and had V-tach episode that resolved with rest. For all of these reasons, attempt to transfer to bedside commode was deferred for patients safety. Patient performed oral hygiene and washed face at setup, Dep for dale care after attempting to have BM on bedpan while sitting in chair. Educated patient and his daughter on the importance of changing positions every 2 hours Used wilfrid lift to safely transfer back to bed. Patient stated he needed to lay down to take pressure off of his buttocks. Physical Therapist educated patient on the importance of getting OOB to chair again later today. Patient left right semisidelying in bed with call stevens in reach. Daughter present and Vital signs stable . A: Patient exhibited Fair participation in therapy and responded well to treatment this session. Patient is progressing toward goal(s) 1 and 2. Poor endurance and Persistent weakness remain(s) a limiting factor. P: Functional motor treatment, Patient/Caregivier Education, Equipment recommendations, Daily livingactivities, Therapeutic exercises and Neuromuscular Re-Education Kendra Quigley OTR License# [id number] Department of Occupational Therapy [facility]- Fri, Fri, and Friday [phone] Total Timed Treatment Codes: 39 Min Total Treatment Time: 39 MinElectronically signed by Kendra Quigley OT at 12:25 PM Supriya Forbes, ZAID - 01/17/2020 11:23 AM [facility] Daily Progress Note - 01/17/2020 10:25-10:56 Juan Diego Damon : 1945 Age: [age] year old Sex: male SUBJECTIVE: Pt sitting in chair. Daughter present. Pt stated that mechanical soft diet is too hard for him to chew. When asked if he has been wearing his dentures he and his daughter stated "no." Dentures present in the room. Encouraged patient to wear dentures during future meals. Pt stated he would but even with dentures he wants a pureed diet. On regular nasal cannula. 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 Treatment was provided due to oropharyngeal dysphagia. Progress on short term goals was as follows: Swallowing: - Patient will tolerate the least restricted diet texture without overt s/sx of aspiration or other negative effects on medical condition. Pt currently on mechanical soft diet and nectar thick liquids. Afebrile. Temp ( 24hrs), Av.6 C (97.9 F), Min:36.6 C (97.8 F), Max:36.8 C (98.2 F ). Chest x-ray shows stable left lower lobe atelectasis and pleural effusion, but no mention of right lobe atelectasis. WBC is WNL. CONTINUE GOAL - Patient will verbalize swallowing precautions with minimal cues 80% of the time. Pt required moderate cues to verbalize/recall swallow precautions 80% of the time. CONTINUE GOAL - Patient will demonstrate swallow precautions while eating a meal or snack 80% of the time with minimal cues. Pt complied with single sips at a time during thin liquid trials. No meal tray present. CONTINUE GOAL - Patient will complete base of tongue, strap muscle, and laryngeal elevation exercises with moderate cues 80% of the time. Instructed patient in Christy, effortful swallow, Cathie, supraglottic swallow, pitch glides, andbulldog neck stretches. Pt required maximal cues and models and completed these exercises overall with 60% accuracy. Provided written instructions for swallow exercises. CONTINUE GOAL - Patient will consume trials of thin liquids via cup or straw without overt s/ s aspiration 90% of the time using swallow techniques as needed. Pt consumed trials of thin liquids via tsp x5 and via cup x3 using the supraglottic swallow strategyfor increased airway protection. He produced overt s/s aspiration (i.e. Large spontaneous coughs after completing the swallow with the strategy) after 1/5 tsp trials and after 1/3 cup sips. Following the cough after the cup sip, patient continued to produce delayed coughs. CONTINUE GOAL ASSESSMENT: Juan Diego Damon continues to demonstrate occasional overt s/s aspiration with thin liquids even when using airway protection swallow techniques. This session patient was instructed in swallowing exercise program. Recommend continuing with swallowing therapy. Pt appears to be tolerating nectar thick liquids without negative effects on medical condition, though states the mechanical soft diet is too difficult to chew. Pt requested to be downgraded to pureed diet. PLAN: 1. Downgrade to pureed diet at patient's request. Continue with nectar thick liquids. Swallow precautions: sit fully upright/chair, small single sips/bites , alternate sips/bites and remain upright for 30 minutes after meals - To thicken liquids, add 1 pk of ThickenUp Clear to every 4 oz of liquids. - Thickener will not come up on meal tray. Please order from [employer] if not stored in [employer] on unit. - Note: pre-packaged tea from kitchen is a 6 oz cup and requires 1.5 pks of thickener. 2. Recommend free water protocol (small amounts of ice chips only) PRN for QOL, despite aspiration risks, with strict adherence to the following precaution: Oral hygiene/care must be completed prior toice intake, wait 30 mins after other PO intake, sit fully upright. 3. Continue FISHERIES OFFICER services in house 2-5x/wk until goals are met or until discharge. If goals are not met, patient may require ongoing FISHERIES OFFICER services at inpatient rehab. Supriya Hicks M.S., [facility]-FISHERIES OFFICER Speech-Language Pathologist Pager: [phone] Office: [phone] signed by Supriya Hicks, FISHERIES OFFICER at 01/17/2020 11:36 AM Irma Cantuaham Ramirolay Blancas, DO - 01/17/2020 11:06 AM CDT [facility] Cardiology progress note Date of Service: 01/17/2020 Juan Diego Damon is a 74 years old male s/p CABG and AVR. Overall, patient reports feeling well and believes his breathing is improving. Denies chest pain, palpitations, dizziness, SOB, or headache. PHYSICAL EXAM Vitals: 01/17/20 0658 01/17/20 0700 01/17/20 0800 01/17/20 1000 BP: 128/71 (!) 152/73 127/73 Pulse: 99 100 92 Resp: 17 25 22 (!) 34 Temp: TempSrc: SpO2: 99% 98% 93% Weight: Height: General: no apparent distress, obese Neck: supple, no lymphadenopathy, no bruits, no JVD Lungs: clear to auscultation bilaterally Cardio: S1, S2, normal rate, regular; no murmurs, rubs or gallops Abdomen: non-distended, nontender Extremities: no clubbing, cyanosis. trace pitting edema of BLE Skin: no rashes Medications: I have reviewed the patient's medications; see Medication Reconciliation. Labs: Recent Labs 01/13/20 0305 01/14/20 0229 01/15/20 0058 01/16/20 0049 01/17/20 0027 WBC 9.19 10.32 9.85 8.39 7.64 HGB 8.4* 7.6* 7.3* 7.9* 7.6* HCT 25.4* 24.1* 22.7* 24.3* 24.1* MCV 93.4 95.3 96.6* 94.9 96.8* PLT 106* 112* 149* 197 217 Recent Labs 01/15/20 0058 01/15/20 1404 01/16/20 0049 01/16/20 1355 01/17/20 0028 NA 139 139 142 141 141 K 3.6 3.7 3.6 3.6 3.7 CA 7.2* 7.4* 8.2* 7.8* 7.8* CL 102 101 100 100 100 BUN 35* 40* 38* 41* 38* CREAT 1.11 0.99 1.00 1.01 1.12 GLU 237* 252* 147* 173* 206* TCO2 30 28 32* 33* 34* Recent Labs 01/10/20 1533 ALB 4.4 TPRO 8.0 BILIT 0.3 ALT 17 AST 30 ALKPHOS 112 Recent Labs 01/05/20 0549 01/10/20 1533 01/11/20 1300 01/11/20 1524 PTINR 1.1 1.0 1.4 1.3 PTPAT 11.8 11.4 15.1* 14.7* APTTPAT -- -- 34 38* ASSESSMENT AND PLAN Principal Problem: CAD (coronary artery disease) Active Problems: S/P AVR S/P CABG (coronary artery bypass graft) Nonrheumatic aortic valve stenosis Dyslipidemia Essential hypertension Other emphysema Morbid obesity Acute on chronic diastolic congestive heart failure CAD--3v- CAD s/p CABG 01.11.2020 POD #6 from 3V CABG. Appears to be clinically improving, has not required pressors for the past few days. - c/w DAPT - Continue lipitor at 20 mg and fenofibrate - Keep K > 4 and Mag > 2. Acute on chronic HFpEF Patient appears euvolemic on exam. Increase in CO2 points towards contraction alkalosis, Cr trendingupwards. Will transition to PO Lasix. No need for sildenafil given pulmonary hypertension 2/2 volumeoverload. - d/c IV Lasix and Sildenafil - start Lasix 40mg PO bid Aortic stenosis s/p AVR bioprosthetic 01.11.2020 - c/w ASA Dyslipidemia - c/w Lipitor 20mg qhs and Fenofibrate Patient was seen and examined with Dr. Katerine Vital, DO PGY-2 [facility] [phone] ID #[id number] Associated attestation - Kassandra Garcias MD - 01/17/2020 11:44 AM CDTAfter discussion with Dr. Vital, I examined this patient on the following date: 2019. I agree with resident's note as written. I have confirmed the findings as outlined in the note with the following changes: none. I have discussed the assessment and plans as outlined and agree with plans. Kassandra Garcias MD Junior Brand Manager Cardiology Bhavani Albarado MD - 01/17/2020 10:27 AM CDT Critical Care Medicine Progress Note Date of Service: 01/17/2020 Hospital admission date: 01/10/2020 Last 24 hour events (major events): Recovering post CABG Subjective: No complaints Intake/Output: Intake/Output Summary (Last 24 hours) at 01/17/2020 1027 Last data filed at 01/17/2020 0800 Gross per 24 hour Intake 730 ml Output 3240 ml Net -2510 ml Current Facility-Administered Medications: furosemide (LASIX) injection 40 mg, 40 mg, Slow IV Push, Q8H, Syeda Morse MD, 40 mg at 01/17/20 0520 insulin glargine (LANTUS U-100) injection 40 Units, 40 Units, Subcutaneous , BID, Ghazala Vaughan MD, 40 Units at 01/17/20 0840 ipratropium (ATROVENT) 0.02 % nebulizer solution 0.5 mg, 0.5 mg, Inhalation , PRN, Syeda Morse MD fenofibrate micronized (LOFIBRA) capsule 134 mg, 134 mg, Oral, DAILY, Chary Martinez MD, 134 mgat 01/17/20 0817 sildenafil (REVATIO) tablet 10 mg, 10 mg, Oral, DAILY, Isidro Pulido MD, 10 mg at 01/17/20 0818 aspirin chewable tablet 81 mg, 81 mg, Oral, DAILY, Isidro Pulido MD, 81 mg at 01/17/20 0819 propofol IV infusion, 5-75 mcg/kg/min, IV Infusion, TITRATE, Syeda Morse MD, Stopped at 01/13/20 08 acetaminophen (TYLENOL) suppository 650 mg, 650 mg, Rectal, Q6HPRN, Syeda Morse MD acetaminophen (TYLENOL) tablet 650 mg, 650 mg, Oral, Q6HPRN, Syeda Morse MD, 650 mg at 01/17/20 0916 cardioplegic (PLEGISOL) perfusion solution, , , PRN, Isidro Pulido MD, 1, 000 mL at 01/11/20 0811 clopidogreL (PLAVIX) tablet 75 mg, 75 mg, Oral, DAILY, Syeda Morse MD, 75 mg at 01/17/200819 D5W-LR IV infusion 1,000 mL, 1,000 mL, IV Infusion, CONTINUOUS, Syeda Morse MD, Stopped at 01/11/20 182 dextrose 50 % in water (D50W) injection 25 mL, 25 mL, Slow IV Push, PRN, Syeda Morse MD DOBUTamine (DOBUTREX) 500 mg in 250 mL (Fixed Dose) D5W infusion RTU, 2.5- 20 mcg/kg/min, IV Infusion, TITRATE, Syeda Morse MD, Stopped at 01/14/20 1200 EPINEPHrine HCl in 0.9 % NaCl 4 mg/250 mL (16 mcg/mL) infusion RTU, 0.01- 0.7 mcg/kg/min, IV Infusion, TITRATE, Syeda Morse MD, Stopped at 0530 glucagon (GLUCAGEN DIAGNOSTIC KIT) injection 1 mg, 1 mg, Intramuscular, PRN , Syeda Morse MD heparin (porcine) injection 5,000 Units, 5,000 Units, Subcutaneous, Q12H, Syeda Morse MD, 5,000 Units at 01/17/20 0820 heparin 1,000 unit/mL 30,000 Units in NaCl 0.9% (NS) 1,000 mL OR irrigation , , , PRNJohn Shuab, MD, 1,000 mL at 01/11/20 0757 heparin 1,000 unit/mL 5,000 Units in NaCl 0.9% (NS) 500 mL OR irrigation, , , John RICHARDSON Shuab, MD, 500 mL at 01/11/20 0810 milrinone in D5W (PRIMACOR) 40 mg/200 mL infusion RTU, 0.125-0.75 mcg/kg/ min, IV Infusion, TITRJohn VALDEZ Shuab, MD, Stopped at 01/12/20 0424 NaCl 0.9% (NS) bolus infusion 250 mL, 250 mL, IV Infusion, PRN - SEE INSTRUCTIONS, Syeda Morse MD NORepinephrine 4 mg in D5W 250 mL infusion RTU, 0.05-3 mcg/kg/min, IV Infusion, TITRATELito Radheshyam, MD, Stopped at 01/12/20 0541 ondansetron (ZOFRAN (PF)) injection 4 mg, 4 mg, Slow IV Push, Q6HPRN, Syeda Morse MD, 4 mg at 01/14/20 0905 papaverine 60 mg in NaCl 0.9% (NS) 60 mL OR irrigation, , , PRNJohn Shuab, MD, 60 mL at 01/11/20 0809 acetaminophen (TYLENOL) tablet 650 mg, 650 mg, Oral, Q6HPRN, Rivera Fernández MD , 650 mg at 01/14/20 1600 atorvastatin (LIPITOR) tablet 20 mg, 20 mg, Oral, QHS, Rivera Fernández MD, 20 mg at 01/16/20 1934 chlorhexidine (KIKI-HEX) 4 % liquid, , Topical, PRE-PROCEDURE ONCE, Isidro Pulido MD finasteride (PROSCAR) tablet 5 mg, 5 mg, Oral, DAILY, Rivera Fernández MD, 5 mg at 01/17/20 0819 omeprazole (PRILOSEC) capsule 20 mg, 20 mg, Oral, DAILY, Rivera Fernández MD, 20 mg at 01/17/20 0818 Sliding Scale Insulin-Regular + Fsbg Testing, , Subcutaneous, AC+HS, Rivera Fernández MD, 4 Units at 01/17/20 0834 tamsulosin (FLOMAX) capsule 0.4 mg, 0.4 mg, Oral, BID, Rivera Fernández MD, 0.4 mg at 01/17/20 0819 Physical Exam: Temp: [36.6 C (97.8 F)-36.8 C (98.2 F)] Heart Rate (monitor): [85-108] Pulse: [88-108] Resp: [11-29] BP: (97-139)/(43-71) MAP (mmHg): [64-94] General: arounsable; no acute distress HEENT: pupils equal, round, reactive to light Neck: supple, no JVD Lungs: clear to auscultation bilaterally Cardio: regular rate and rhythm Abdomen: soft, non tender, non distended, bowel sounds + Extremities: no clubbing, cyanosis, + edema Skin: no rashes Neuro: no focal deficits Labs (pertinent only)/Imaging: Recent Results (from the past 24 hour(s)) POCT GLUCOSE (AUTOMATED) Collection Time: 01/16/20 11:54 AM Result Value Ref Range POCT GLU 197 (H) 70 - 110 mg/dL PHOSPHORUS Collection Time: 01/16/20 1:55 PM Result Value Ref Range PHOSPHORUS 3.0 2.5 - 5.0 mg/dL MAGNESIUM Collection Time: 01/16/20 1:55 PM Result Value Ref Range MAGNESIUM 2.2 1.7 - 2.4 mg/dL BASIC METABOLIC PANEL (NA, K, CL, CO2, GLUCOSE, BUN, CREATININE, CA) Collection Time: 01/16/20 1:55 PM Result Value Ref Range NA 141 135 - 145 mmol/L K 3.6 3.5 - 5.0 mmol/L CL 100 98 - 108 mmol/L CO2 TOTAL 33 (H) 23 - 31 mmol/L AGAP 8 2 - 16 BUN 41 (H) 7 - 23 mg/dL GLUCOSE 173 (H) 70 - 110 mg/dL CREATININE 1.01 0.60 - 1.25 mg/dL CALCIUM 7.8 (L) 8.6 - 10.6 mg/dL eGFR Calculation (Non-) 72.4 mL/min/1.73m2 eGFR Calculation () 87.8 mL/min/1.73m2 POCT GLUCOSE (AUTOMATED) Collection Time: 01/16/20 4:22 PM Result Value Ref Range POCT GLU 216 (H) 70 - 110 mg/dL POCT GLUCOSE (AUTOMATED) Collection Time: 01/16/20 8:28 PM Result Value Ref Range POCT GLU 218 (H) 70 - 110 mg/dL PROFILE / HEMOGRAM Collection Time: 01/17/20 12:27 AM Result Value Ref Range WBC 7.64 4.20 - 10.70 10*3/L RBC 2.49 (L) 4.26 - 5.52 10*6/L HGB 7.6 (L) 12.2 - 16.4 g/dL HCT 24.1 (L) 38.4 - 49.3 % MCH 30.5 26.1 - 32.7 pg MCV 96.8 (H) 81.7 - 95.6 fL MCHC 31.5 31.2 - 35.0 g/dL PLT 217 150 - 328 10*3/L MPV 9.2 (L) 9.8 - 13.0 fL RDW-CV 15.2 12.1 - 15.4 % RDW-SD 52.7 (H) 38.5 - 51.6 fL NRBC x10^3 0.07 10*3/L NRBC/100 WBC 0.9 0.0 - 10.0 /100 WBCs IPF % BASIC METABOLIC PANEL (NA, K, CL, CO2, GLUCOSE, BUN, CREATININE, CA) Collection Time: 01/17/20 12:28 AM Result Value Ref Range NA 141 135 - 145 mmol/L K 3.7 3.5 - 5.0 mmol/L CL 100 98 - 108 mmol/L CO2 TOTAL 34 (H) 23 - 31 mmol/L AGAP 7 2 - 16 BUN 38 (H) 7 - 23 mg/dL GLUCOSE 206 (H) 70 - 110 mg/dL CREATININE 1.12 0.60 - 1.25 mg/dL CALCIUM 7.8 (L) 8.6 - 10.6 mg/dL eGFR Calculation (Non-) 64.3 mL/min/1.73m2 eGFR Calculation () 77.9 mL/min/1.73m2 MAGNESIUM Collection Time: 01/17/20 12:28 AM Result Value Ref Range MAGNESIUM 2.4 1.7 - 2.4 mg/dL PHOSPHORUS Collection Time: 01/17/20 12:28 AM Result Value Ref Range PHOSPHORUS 3.1 2.5 - 5.0 mg/dL Xr Chest 1 Vw Result Date: 01/16/2020 Persistent atelectasis in the left lower lobe with a small left pleural effusion. Mild interstitial edema Cardiomegaly. Assessment/Plan: Patient Active Problem List Diagnosis Coronary arteriosclerosis in [place] artery CAD (coronary artery disease) S/P AVR S/P CABG (coronary artery bypass graft) Nonrheumatic aortic valve stenosis Dyslipidemia Essential hypertension Other emphysema Morbid obesity Acute on chronic diastolic congestive heart failure Juan Diego Damon is a 74 year old male s/p CABG Neuro: Pain control with Tylenol. CV: Vasoplegic shock Resolved, off all pressors and inotrops. CAD s/p CABG begin DAPT therapy. Volume overload on lasix Respiratory: Acute post operative respirator insufficiency CXR reviewed no focal consolidations or infiltrates, has LLL atelectasis. C/w NC and IS. Maintain SpO2>92%. BIPAP qhs and PRN. COPD not in exacerbation add PRN nebs JUANA highly suspected needs PSG as outpatient GI: No active issues : No active issues ID: Completed vancomycin for surgical ppx, allergic to PCN Heme: Acute blood loss anemia intra op s/p 2 U PRBC with appropriate response. On DAPT therapy.Hb goal > 7 Endo: DM monitor sugar, c/w ISS MSK:No active issues Stress ulcer prophylaxis:PPI DVT prophylaxis: Heparin Nutrition:Cardiac low salt diet Code status: Full Bhavani Albarado MD Pulmonary and Critical Care Medicine Kai Pool SW - 01/17/2020 9:51 AM CDTSocial Worker Note [facility] [address], [place] [address] . Clinicals faxed to [phone] and spoke with [facility] liaison. TIMO Carr Kai Pool SW - 01/17/2020 9:43 AM CDT Juan Diego Damon [id number] RE: Care Management Patient Choice Notification Your doctor has recommended that you have post-hospital care services at discharge. You can choose the provider you want, regardless of its relationship with [facility]. We will contact any of the agencieswithin the [facility] network, or any other agency upon your request. The hospital must assist patients, their families, or the patients group sales representative in selecting a post- acute care provider by using and sharing data that includes, but is not limited to, Home Health Agencies, Penitentiary Facilities, Inpatient Rehab, or Intermediate Acute Care, [employer] data on quality measures and data on resource use measures. Based on where you live and agency service areas, a list was generated from: Medicare.gov Disclosure: [facility] owns or is affiliated with the following facilities/agencies: [facility] ([place] [facility]) Patient Choice Acknowledgement I, Juan Diego Damon / authorized group sales representative, am aware that I have choice in selecting post-hospital care providers. The [facility] has given me a list of providers in the area available to me and/or my authorized group sales representative. My choice(s) are listed below: ? Rehab: [facility], [address], [place], [place] (Ph) [phone] (F) [phone] Your signature on this form indicates that you have been given the following information: I have been advised of my right to choose the providers I wish ? If [place] [facility] facilities, long-term acute care hospitals, or home health agencies were recommended, I was given a list of facilities/agencies in my geographic area that deliver these services or ? I have pre-selected or am an established client with a facility/agency and choose to initiate/continue services 01/17/20 Patient/Guardian/Responsible Democrat Signature Date Signed copy placed on chart to be scanned into Electronic Medical Record Isidro Blank MD - 01/17/2020 8:14 AM CDT Cardiothoracic Surgery Date of Service: 01/17/2020 08:14 S/P AVR, CABG PHYSICAL EXAM: Vitals: 01/17/20 0500 01/17/20 0600 01/17/20 0658 01/17/20 0700 BP: 139/70 129/70 128/71 Pulse: 99 100 99 100 Resp: 23 20 17 25 Temp: TempSrc: SpO2: 95% 98% 99% 98% Weight: Height: Intake/Output Summary (Last 24 hours) at 01/17/2020 0814 Last data filed at 01/17/2020 0800 Gross per 24 hour Intake 970 ml Output 3390 ml Net -2420 ml Lungs: clear to auscultation bilaterally Cardio: S1, S2 normal; no murmurs, rubs or gallops Abdomen: soft; non-tender; non-distended; normoactive bowel sounds LABS: Admission on 01/05/2020, Discharged on 01/06/2020 Component Date Value PROTIME PATIENT 01/05/2020 11.8 INR 01/05/2020 1.1 NA 01/05/2020 143 K 01/05/2020 4.0 CL 01/05/2020 107 CO2 TOTAL 01/05/2020 23 AGAP 01/05/2020 13 BUN 01/05/2020 28* GLUCOSE 01/05/2020 108 CREATININE 01/05/2020 0.89 CALCIUM 01/05/2020 8.9 eGFR Calculation (Non-Af* 01/05/2020 83.8 eGFR Calculation (Airam* 01/05/2020 101.6 WBC 01/05/2020 7.17 RBC 01/05/2020 4.37 HGB 01/05/2020 13.4 HCT 01/05/2020 40.6 MCV 01/05/2020 92.9 MCH 01/05/2020 30.7 MCHC 01/05/2020 33.0 RDW-SD 01/05/2020 49.7 RDW-CV 01/05/2020 14.8 PLT 01/05/2020 246 MPV 01/05/2020 9.3* NRBC/100 WBC 01/05/2020 0.0 NRBC x10^3 01/05/2020 <0.01 GRAN MAT (NEUT) % 01/05/2020 62.5 IMM GRAN % 01/05/2020 0.60 LYMPH % 01/05/2020 22.5 MONO % 01/05/2020 8.4 EOS % 01/05/2020 5.2 BASO % 01/05/2020 0.8 GRAN MAT x10^3(ANC) 01/05/2020 4.49 IMM GRAN x10^3 01/05/2020 0.04 LYMPH x10^3 01/05/2020 1.61 MONO x10^3 01/05/2020 0.60 EOS x10^3 01/05/2020 0.37 BASO x10^3 01/05/2020 0.06 HGB A1C 01/05/2020 7.6* POCT GLU 01/05/2020 195* POCT GLU 01/05/2020 238* ACTLR 01/05/2020 289* POCT GLU 01/05/2020 256* POCT GLU 01/06/2020 252* ACTLR 01/05/2020 270* RADIOLOGY: Xr Chest 1 Vw Result Date: 01/16/2020 Persistent atelectasis in the left lower lobe with a small left pleural effusion. Mild interstitial edema Cardiomegaly. ASSESSMENT/PLAN Juan Diego Damon is a 74 year old maleS/P AVR, CABG Feels better PT, OT Wires removed Discharge planning Decrease lasix Cr 1.1 END OF DAILY PROGRESS NOTE HOSPITAL COURSE CURRENT MEDICATIONS - reviewed. Current Facility-Administered Medications Medication Dose Route Frequency Last Rate Last Dose furosemide (LASIX) injection 40 mg 40 mg Slow IV Push Q8H 40 mg at 0520 insulin glargine (LANTUS U-100) injection 40 Units 40 Units Subcutaneous BID 40 Units at 01/16/20 203 ipratropium (ATROVENT) 0.02 % nebulizer solution 0.5 mg 0.5 mg Inhalation PRN fenofibrate micronized (LOFIBRA) capsule 134 mg 134 mg Oral DAILY 134 mg at 01/16/20 0833 sildenafil (REVATIO) tablet 10 mg 10 mg Oral DAILY 10 mg at 01/16/20 0833 aspirin chewable tablet 81 mg 81 mg Oral DAILY 81 mg at 01/16/20 0833 propofol IV infusion 5-75 mcg/kg/min IV Infusion TITRATE Stopped at 01/12 0825 acetaminophen (TYLENOL) suppository 650 mg 650 mg Rectal Q6HPRN acetaminophen (TYLENOL) tablet 650 mg 650 mg Oral Q6HPRN 650 mg at 0027 cardioplegic (PLEGISOL) perfusion solution PRN 1,000 mL at 01/11/20 0811 clopidogreL (PLAVIX) tablet 75 mg 75 mg Oral DAILY 75 mg at 01/16/20 0833 D5W-LR IV infusion 1,000 mL 1,000 mL IV Infusion CONTINUOUS Stopped at 1828 dextrose 50 % in water (D50W) injection 25 mL 25 mL Slow IV Push PRN DOBUTamine (DOBUTREX) 500 mg in 250 mL (Fixed Dose) D5W infusion RTU 2.5- 20 mcg/kg/min IV Infusion TITRATE Stopped at 01/14/20 1200 EPINEPHrine HCl in 0.9 % NaCl 4 mg/250 mL (16 mcg/mL) infusion RTU 0.01- 0.7 mcg/kg/min IV Infusion TITRATE Stopped at 01/13/20 0530 glucagon (GLUCAGEN DIAGNOSTIC KIT) injection 1 mg 1 mg Intramuscular PRN heparin (porcine) injection 5,000 Units 5,000 Units Subcutaneous Q12H 5, 000 Units at 01/15/201934 heparin 1,000 unit/mL 30,000 Units in NaCl 0.9% (NS) 1,000 mL OR irrigation PRN 1,000 mL at01/11/20 0757 heparin 1,000 unit/mL 5,000 Units in NaCl 0.9% (NS) 500 mL OR irrigation PRN 500 mL at 01/11/20 0810 milrinone in D5W (PRIMACOR) 40 mg/200 mL infusion RTU 0.125-0.75 mcg/kg/ min IV Infusion TITRATE Stopped at 01/12/20 0424 NaCl 0.9% (NS) bolus infusion 250 mL 250 mL IV Infusion PRN - SEE INSTRUCTIONS NORepinephrine 4 mg in D5W 250 mL infusion RTU 0.05-3 mcg/kg/min IV Infusion TITRATE Stopped at 01/12/20 0541 ondansetron (ZOFRAN (PF)) injection 4 mg 4 mg Slow IV Push Q6HPRN 4 mg at 01/14/20 0905 papaverine 60 mg in NaCl 0.9% (NS) 60 mL OR irrigation PRN 60 mL at 08/22 0809 acetaminophen (TYLENOL) tablet 650 mg 650 mg Oral Q6HPRN 650 mg at 1600 atorvastatin (LIPITOR) tablet 20 mg 20 mg Oral QHS 20 mg at 01/16/20 1934 chlorhexidine (KIKI-HEX) 4 % liquid Topical PRE-PROCEDURE ONCE finasteride (PROSCAR) tablet 5 mg 5 mg Oral DAILY 5 mg at 01/16/20 0832 omeprazole (PRILOSEC) capsule 20 mg 20 mg Oral DAILY 20 mg at 01/16/20 0833 Sliding Scale Insulin-Regular + Fsbg Testing Subcutaneous AC+HS 4 Units at 01/16/20 203 tamsulosin (FLOMAX) capsule 0.4 mg 0.4 mg Oral BID 0.4 mg at 01/16/204 Ghazala Crook MD - 01/16/2020 3:06 PM CDT [facility] Progress Note Subjective: Patient seen & examined. Events reviewed. Objective: Vitals: 01/16/20 0800 01/16/20 1200 01/16/20 1356 01/16/20 1400 BP: 136/60 102/43 132/60 Pulse: 93 93 95 Resp: Temp: 36.7 C (98 F) TempSrc: Rectal SpO2: 97% 93% Weight: 121.4 kg (267 lb 10.2 oz) 119.3 kg (263 lb) Height: General: awake, alert, no distress HEENT: NC, AT, PERRLA, EOMI, MMM, anicteric sclera Neck: no JVD/lymphadenopathy CV: RRR, no murmurs, rubs, gallops Lungs: clear to auscultation bilaterally Abdomen: soft, NT, ND, (+)BS Skin: no rashes Extremities: no clubbing, cyanosis, edema Neuro: CN 2-12 intact, no focal deficits Psych: oriented x 3, normal affect Labs: reviewed Current Facility-Administered Medications: furosemide (LASIX) injection 40 mg, 40 mg, Slow IV Push, Q8H, Syeda Morse MD, 40 mg at 01/16/20 1412 insulin glargine (LANTUS U-100) injection 40 Units, 40 Units, Subcutaneous , BID, Ghaazla Vaughan MD sennosides (SENOKOT) tablet 8.6 mg, 8.6 mg, Oral, BID, Ghazala Vaughan MD ipratropium (ATROVENT) 0.02 % nebulizer solution 0.5 mg, 0.5 mg, Inhalation , PRN, Syeda Morse MD fenofibrate micronized (LOFIBRA) capsule 134 mg, 134 mg, Oral, DAILY, Chary Martinez MD, 134 mgat 01/16/20 0833 sildenafil (REVATIO) tablet 10 mg, 10 mg, Oral, DAILY, Isidro Pulido MD, 10 mg at 01/16/20 0833 aspirin chewable tablet 81 mg, 81 mg, Oral, DAILY, Isidro Pulido MD, 81 mg at 01/16/20 0833 docusate (COLACE) 50 mg/5 mL solution 100 mg, 100 mg, Enteral, DAILY, Sydea Morse MD, Stopped at 01/15/20 0900 propofol IV infusion, 5-75 mcg/kg/min, IV Infusion, TITRATE, Syeda Morse MD, Stopped at 01/13/20 0825 acetaminophen (TYLENOL) suppository 650 mg, 650 mg, Rectal, Q6HPRN, Syeda Morse MD acetaminophen (TYLENOL) tablet 650 mg, 650 mg, Oral, Q6HPRN, Syeda Morse MD, 650 mg at 01/16/20 0654 cardioplegic (PLEGISOL) perfusion solution, , , PRNJohn Shuab, MD, 1, 000 mL at 01/11/20 0811 clopidogreL (PLAVIX) tablet 75 mg, 75 mg, Oral, DAILY, Syeda Morse MD, 75 mg at 01/16/200833 D5W-LR IV infusion 1,000 mL, 1,000 mL, IV Infusion, CONTINUOUS, Syeda Morse MD, Stopped at 01/11/20 1828 dextrose 50 % in water (D50W) injection 25 mL, 25 mL, Slow IV Push, PRN, Syeda Morse MD DOBUTamine (DOBUTREX) 500 mg in 250 mL (Fixed Dose) D5W infusion RTU, 2.5- 20 mcg/kg/min, IV Infusion, TITRATE, Syeda Morse MD, Stopped at 01/14/20 1200 EPINEPHrine HCl in 0.9 % NaCl 4 mg/250 mL (16 mcg/mL) infusion RTU, 0.01- 0.7 mcg/kg/min, IV Infusion, TITRATE, Syeda Morse MD, Stopped at 0530 glucagon (GLUCAGEN DIAGNOSTIC KIT) injection 1 mg, 1 mg, Intramuscular, PRN , Syeda Morse MD heparin (porcine) injection 5,000 Units, 5,000 Units, Subcutaneous, Q12H, Syeda Morse MD, 5,000 Units at 01/16/20 0832 heparin 1,000 unit/mL 30,000 Units in NaCl 0.9% (NS) 1,000 mL OR irrigation , , , PRJohn Lisa Shuab, MD, 1,000 mL at 01/11/20 0757 heparin 1,000 unit/mL 5,000 Units in NaCl 0.9% (NS) 500 mL OR irrigation, , , John RICHARDSON Shuab, MD, 500 mL at 01/11/20 0810 milrinone in D5W (PRIMACOR) 40 mg/200 mL infusion RTU, 0.125-0.75 mcg/kg/ min, IV Infusion, TITRATE, Isidro Pulido MD, Stopped at 01/12/20 0424 NaCl 0.9% (NS) bolus infusion 250 mL, 250 mL, IV Infusion, PRN - SEE INSTRUCTIONS, Syeda Morse MD NORepinephrine 4 mg in D5W 250 mL infusion RTU, 0.05-3 mcg/kg/min, IV Infusion, TITRATE, Syeda Morse MD, Stopped at 01/12/20 0541 ondansetron (ZOFRAN (PF)) injection 4 mg, 4 mg, Slow IV Push, Q6HPRN, Syeda Morse MD, 4 mg at 01/14/20 0905 papaverine 60 mg in NaCl 0.9% (NS) 60 mL OR irrigation, , , PRN, Isidro Pulido MD, 60 mL at 01/11/20 0809 acetaminophen (TYLENOL) tablet 650 mg, 650 mg, Oral, Q6HPRN, Rivera Fernández MD , 650 mg at 01/14/20 1600 atorvastatin (LIPITOR) tablet 20 mg, 20 mg, Oral, QHS, Rivera Fernández MD, 20 mg at 01/15/20 2024 chlorhexidine (KIKI-HEX) 4 % liquid, , Topical, PRE-PROCEDURE ONCE, Isidro Pulido MD finasteride (PROSCAR) tablet 5 mg, 5 mg, Oral, DAILY, Rivera Fernández MD, 5 mg at 01/16/20 0832 omeprazole (PRILOSEC) capsule 20 mg, 20 mg, Oral, DAILY, Rivera Fernández MD, 20 mg at 01/16/20 0833 Sliding Scale Insulin-Regular + Fsbg Testing, , Subcutaneous, AC+HS, Rivera Fernández MD, 3 Units at 01/16/20 1157 tamsulosin (FLOMAX) capsule 0.4 mg, 0.4 mg, Oral, BID, Rivera Fernández MD, 0.4 mg at 01/16/20 0832 Assessment: Juan Diego Damon is a 74 year old male admitted with: Coronary artery disease - S/P CABG Hypertension Hyperlipidemia Diabetes mellitus BPH GERD Plan: Postoperative care status post CABG Milrinone, Propofol, Epinephrine, Levophed drips IV fluids Resume home medications CT surgery following Blood pressure support as needed Follow chest tube drainage output ICU monitoring, follow blood pressure trend closely Following labs, electrolytes Follow Hgb trend, assess for postoperative bleeding DVT prophylaxis, Lovenox Beta deyvi Antihyperlipidemic Sliding scale insulin, follow blood sugar trend, adjust medications as needed 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 Estes was present during patient encounter, examined patient at bedside , all questions answered Plan discussed with patient 01/12/2020 Currently still intubated and sedated Discussed with pulmonary and cardiothoracic surgery today Will attempt to wean off of ventilator support today Drains still in place Monitoring drain output Following blood sugar closely Sliding scale as needed We'll hold patient's medications orally for now Increase activity once extubated Further recommendations will be based on this patient's clinical course 01/13/2020 Currently still intubated and sedated Yesterday SBT attempted but failed, off epi drip and off flolan now. Will attempt to wean off of ventilator support today Drains still in place Monitoring drain output Following blood sugar closely Sliding scale as needed Hold patient's medications orally for now Acute blood loss anemia intra op s/p 2 U PRBC with appropriate response. On DAPT therapy. Increase activity once extubated Further recommendations will be based on this patient's clinical course 01/13 Extubated OOBC today PT, OT Speech consult for FEES Doing well Chest tubes per CTS Aspirin, statin Fenofibrate started today IV lasix, remains edematous. Continue ICU care 01/15/2020 Chest tubes out On 4L nasal cannula OOBC today, will use bed side commode Live remains in today as he's on IV lasix. Will reassess tomorrow ICU care PT, OT Am labs. Monitor Cr. 01/16/2020 Remains on IV lasix Still mildly overloaded Live in place Adjust insulin, BG has been high Chest tubes out, saturating well on 3L OOB, PT, OT. To rehab early next week. AM labs. Ghazala Vaughan MD Isidro Blank MD - 01/16/2020 9:46 AM CDT Cardiothoracic Surgery Date of Service: 01/16/2020 09:46 S/P AVR CABG PHYSICAL EXAM: Vitals: 01/16/20 0600 01/16/20 0700 01/16/20 0730 01/16/20 0800 BP: 130/68 125/65 136/60 Pulse: 94 94 92 93 Resp: Temp: 36.1 C (97 F) TempSrc: Axillary SpO2: 97% 95% 97% 97% Weight: Height: Intake/Output Summary (Last 24 hours) at 01/16/2020 0946 Last data filed at 01/16/2020 0700 Gross per 24 hour Intake 985 ml Output 4231 ml Net -3246 ml Lungs: clear to auscultation bilaterally Cardio: S1, S2 normal; no murmurs, rubs or gallops Abdomen: soft; non-tender; non-distended; normoactive bowel sounds LABS: Admission on 01/05/2020, Discharged on 01/06/2020 Component Date Value PROTIME PATIENT 01/05/2020 11.8 INR 01/05/2020 1.1 NA 01/05/2020 143 K 01/05/2020 4.0 CL 01/05/2020 107 CO2 TOTAL 01/05/2020 23 AGAP 01/05/2020 13 BUN 01/05/2020 28* GLUCOSE 01/05/2020 108 CREATININE 01/05/2020 0.89 CALCIUM 01/05/2020 8.9 eGFR Calculation (Non-Af* 01/05/2020 83.8 eGFR Calculation (Airam* 01/05/2020 101.6 WBC 01/05/2020 7.17 RBC 01/05/2020 4.37 HGB 01/05/2020 13.4 HCT 01/05/2020 40.6 MCV 01/05/2020 92.9 MCH 01/05/2020 30.7 MCHC 01/05/2020 33.0 RDW-SD 01/05/2020 49.7 RDW-CV 01/05/2020 14.8 PLT 01/05/2020 246 MPV 01/05/2020 9.3* NRBC/100 WBC 01/05/2020 0.0 NRBC x10^3 01/05/2020 <0.01 GRAN MAT (NEUT) % 01/05/2020 62.5 IMM GRAN % 01/05/2020 0.60 LYMPH % 01/05/2020 22.5 MONO % 01/05/2020 8.4 EOS % 01/05/2020 5.2 BASO % 01/05/2020 0.8 GRAN MAT x10^3(ANC) 01/05/2020 4.49 IMM GRAN x10^3 01/05/2020 0.04 LYMPH x10^3 01/05/2020 1.61 MONO x10^3 01/05/2020 0.60 EOS x10^3 01/05/2020 0.37 BASO x10^3 01/05/2020 0.06 HGB A1C 01/05/2020 7.6* POCT GLU 01/05/2020 195* POCT GLU 01/05/2020 238* ACTLR 01/05/2020 289* POCT GLU 01/05/2020 256* POCT GLU 01/06/2020 252* ACTLR 01/05/2020 270* RADIOLOGY: Xr Chest 1 Vw Result Date: 01/15/2020 1. Interval extubation and removal of the right IJ Corder-Baltazar catheter. 2. Cardiomegaly with mild pulmonary edema. 3. Stable right middle lobe and lingular atelectasis RL: 3000 AFC: [id number] End of report Xr Kub Result Date: 01/14/2020 No bowel distention. RL: 6200 END OF REPORT SSMENT/PLAN Juan Diego Damon is a 74 year old maleS/P AVR, CABG Feels better PT, OT Wires removed Discharge planning END OF DAILY PROGRESS NOTE HOSPITAL COURSE CURRENT MEDICATIONS - reviewed. Current Facility-Administered Medications Medication Dose Route Frequency Last Rate Last Dose furosemide (LASIX) injection 40 mg 40 mg Slow IV Push Q8H insulin glargine (LANTUS U-100) injection 30 Units 30 Units Subcutaneous BID 30 Units at 01/16/20 0830 ipratropium (ATROVENT) 0.02 % nebulizer solution 0.5 mg 0.5 mg Inhalation PRN fenofibrate micronized (LOFIBRA) capsule 134 mg 134 mg Oral DAILY 134 mg at 01/16/20 0833 sildenafil (REVATIO) tablet 10 mg 10 mg Oral DAILY 10 mg at 01/16/20 0833 aspirin chewable tablet 81 mg 81 mg Oral DAILY 81 mg at 01/16/20 0833 docusate (COLACE) 50 mg/5 mL solution 100 mg 100 mg Enteral DAILY Stopped at 01/15/20 0900 propofol IV infusion 5-75 mcg/kg/min IV Infusion TITRATE Stopped at 01/12 0825 acetaminophen (TYLENOL) suppository 650 mg 650 mg Rectal Q6HPRN acetaminophen (TYLENOL) tablet 650 mg 650 mg Oral Q6HPRN 650 mg at 0654 cardioplegic (PLEGISOL) perfusion solution PRN 1,000 mL at 01/11/20 0811 clopidogreL (PLAVIX) tablet 75 mg 75 mg Oral DAILY 75 mg at 01/16/20 0833 D5W-LR IV infusion 1,000 mL 1,000 mL IV Infusion CONTINUOUS Stopped at 1828 dextrose 50 % in water (D50W) injection 25 mL 25 mL Slow IV Push PRN DOBUTamine (DOBUTREX) 500 mg in 250 mL (Fixed Dose) D5W infusion RTU 2.5- 20 mcg/kg/min IV Infusion TITRATE Stopped at 01/14/20 1200 EPINEPHrine HCl in 0.9 % NaCl 4 mg/250 mL (16 mcg/mL) infusion RTU 0.01- 0.7 mcg/kg/min IV Infusion TITRATE Stopped at 01/13/20 0530 glucagon (GLUCAGEN DIAGNOSTIC KIT) injection 1 mg 1 mg Intramuscular PRN heparin (porcine) injection 5,000 Units 5,000 Units Subcutaneous Q12H 5, 000 Units at 01/16/200832 heparin 1,000 unit/mL 30,000 Units in NaCl 0.9% (NS) 1,000 mL OR irrigation PRN 1,000 mL at01/11/20 0757 heparin 1,000 unit/mL 5,000 Units in NaCl 0.9% (NS) 500 mL OR irrigation PRN 500 mL at 01/11/20 0810 milrinone in D5W (PRIMACOR) 40 mg/200 mL infusion RTU 0.125-0.75 mcg/kg/ min IV Infusion TITRATE Stopped at 01/12/20 0424 NaCl 0.9% (NS) bolus infusion 250 mL 250 mL IV Infusion PRN - SEE INSTRUCTIONS NORepinephrine 4 mg in D5W 250 mL infusion RTU 0.05-3 mcg/kg/min IV Infusion TITRATE Stopped at 01/12/20 0541 ondansetron (ZOFRAN (PF)) injection 4 mg 4 mg Slow IV Push Q6HPRN 4 mg at 01/14/20 0905 papaverine 60 mg in NaCl 0.9% (NS) 60 mL OR irrigation PRN 60 mL at 08/22 0809 sennosides (SENOKOT) tablet 8.6 mg 8.6 mg Oral DAILY Stopped at 01/15/20 0900 acetaminophen (TYLENOL) tablet 650 mg 650 mg Oral Q6HPRN 650 mg at 1600 atorvastatin (LIPITOR) tablet 20 mg 20 mg Oral QHS 20 mg at 01/15/20 2024 chlorhexidine (KIKI-HEX) 4 % liquid Topical PRE-PROCEDURE ONCE finasteride (PROSCAR) tablet 5 mg 5 mg Oral DAILY 5 mg at 01/16/20 0832 omeprazole (PRILOSEC) capsule 20 mg 20 mg Oral DAILY 20 mg at 01/16/20 0833 Sliding Scale Insulin-Regular + Fsbg Testing Subcutaneous AC+HS 3 Units at 01/16/20 0831 tamsulosin (FLOMAX) capsule 0.4 mg 0.4 mg Oral BID 0.4 mg at 01/16/20 0832 Syeda Valadez MD - 01/16/2020 6:45 AM CDT Critical Care Medicine Progress Note Date of Service: 01/16/2020 ICU Day:6 Intubation Day:3, extubated on 01/12 Last 24 hour events (major events): S/p CABG and AVR. Doing well on NC now. Slept well. Subjective: Denies chest pain, dyspnea, abdominal pain, nausea, vomiting, fevers, chills, or headaches Lines (with dates):PIV, Right IJ PAC, radial arterial line Live:Yes Intake/Output: Intake/Output Summary (Last 24 hours) at 01/16/2020 0645 Last data filed at 01/16/2020 0600 Gross per 24 hour Intake 1185 ml Output 4816 ml Net -3631 ml Physical Exam: Temp: [36.6 C (97.9 F)-37 C (98.6 F)] Heart Rate (monitor): [84-95] Pulse: [85-94] Resp: [12-29] BP: (107-138)/(51-87) Arterial Line BP: (103-149)/(38-57) MAP (mmHg): [76-97] MAP: [61 mmHg-83 mmHg] General: well developed, well nourished, intubated, intubated and sedated, obese , awake, alert and oriented HEENT: normocephalic atraumatic, pupils equal, round, reactive to light Neck: full range of motion Lungs: clear to auscultation bilaterally Cardio: S1, S2 normal; no murmurs, rubs or gallops, regular rate and rhythm Abdomen: soft; non-tender; non-distended; normoactive bowel sounds : not examined Rectal: not examined Extremities: no clubbing, cyanosis, or edema Skin: no rashes Neuro: non focal Labs (pertinent only)/Imaging: Recent Results (from the past 24 hour(s)) POCT GLUCOSE (AUTOMATED) Collection Time: 01/15/20 8:03 AM Result Value Ref Range POCT GLU 269 (H) 70 - 110 mg/dL POCT GLUCOSE (AUTOMATED) Collection Time: 01/15/20 11:46 AM Result Value Ref Range POCT GLU 304 (H) 70 - 110 mg/dL BASIC METABOLIC PANEL (NA, K, CL, CO2, GLUCOSE, BUN, CREATININE, CA) Collection Time: 01/15/20 2:04 PM Result Value Ref Range NA 139 135 - 145 mmol/L K 3.7 3.5 - 5.0 mmol/L CL 101 98 - 108 mmol/L CO2 TOTAL 28 23 - 31 mmol/L AGAP 10 2 - 16 BUN 40 (H) 7 - 23 mg/dL GLUCOSE 252 (H) 70 - 110 mg/dL CREATININE 0.99 0.60 - 1.25 mg/dL CALCIUM 7.4 (L) 8.6 - 10.6 mg/dL eGFR Calculation (Non-) 74.1 mL/min/1.73m2 eGFR Calculation () 89.8 mL/min/1.73m2 MAGNESIUM Collection Time: 01/15/20 2:04 PM Result Value Ref Range MAGNESIUM 2.2 1.7 - 2.4 mg/dL PHOSPHORUS Collection Time: 01/15/20 2:04 PM Result Value Ref Range PHOSPHORUS 2.7 2.5 - 5.0 mg/dL TOTAL IRON BINDING CAPACITY Collection Time: 01/15/20 2:04 PM Result Value Ref Range TIBC 218 (L) 250 - 410 ug/dL POCT GLUCOSE (AUTOMATED) Collection Time: 01/15/20 4:13 PM Result Value Ref Range POCT GLU 241 (H) 70 - 110 mg/dL POCT GLUCOSE (AUTOMATED) Collection Time: 01/15/20 8:16 PM Result Value Ref Range POCT GLU 194 (H) 70 - 110 mg/dL BASIC METABOLIC PANEL (NA, K, CL, CO2, GLUCOSE, BUN, CREATININE, CA) Collection Time: 01/16/20 12:49 AM Result Value Ref Range NA 142 135 - 145 mmol/L K 3.6 3.5 - 5.0 mmol/L CL 100 98 - 108 mmol/L CO2 TOTAL 32 (H) 23 - 31 mmol/L AGAP 10 2 - 16 BUN 38 (H) 7 - 23 mg/dL GLUCOSE 147 (H) 70 - 110 mg/dL CREATININE 1.00 0.60 - 1.25 mg/dL CALCIUM 8.2 (L) 8.6 - 10.6 mg/dL eGFR Calculation (Non-) 73.2 mL/min/1.73m2 eGFR Calculation () 88.8 mL/min/1.73m2 MAGNESIUM Collection Time: 01/16/20 12:49 AM Result Value Ref Range MAGNESIUM 2.3 1.7 - 2.4 mg/dL PHOSPHORUS Collection Time: 01/16/20 12:49 AM Result Value Ref Range PHOSPHORUS 2.7 2.5 - 5.0 mg/dL CBC WITH DIFFERENTIAL Collection Time: 01/16/20 12:49 AM Result Value Ref Range WBC 8.39 4.20 - 10.70 10*3/L RBC 2.56 (L) 4.26 - 5.52 10*6/L HGB 7.9 (L) 12.2 - 16.4 g/dL HCT 24.3 (L) 38.4 - 49.3 % MCV 94.9 81.7 - 95.6 fL MCH 30.9 26.1 - 32.7 pg MCHC 32.5 31.2 - 35.0 g/dL RDW-SD 52.4 (H) 38.5 - 51.6 fL RDW-CV 15.0 12.1 - 15.4 % PLT 197 150 - 328 10*3/L MPV 9.6 (L) 9.8 - 13.0 fL NRBC/100 WBC 0.6 0.0 - 10.0 /100 WBCs NRBC x10^3 0.05 10*3/L GRAN MAT (NEUT) % 69.4 % IMM GRAN % 1.00 % LYMPH % 13.2 % MONO % 11.7 % EOS % 4.3 % BASO % 0.4 % GRAN MAT x10^3(ANC) 5.83 1.99 - 6.95 10*3/uL IMM GRAN x10^3 0.08 (H) 0.00 - 0.06 10*3/uL LYMPH x10^3 1.11 1.09 - 3.23 10*3/uL MONO x10^3 0.98 0.36 - 1.02 10*3/uL EOS x10^3 0.36 0.06 - 0.53 10*3/uL BASO x10^3 0.03 0.01 - 0.09 10*3/uL Xr Chest 1 Vw Result Date: 01/11/2020 Lines and tubes, as above.. Cardiomegaly with mild edema. Small left effusion. Patchy right basilar atelectasis versus infiltrate. Right upper lobe nodule measuring 9 mm, recommend comparison to prior exams. RL: 6200 Assessment/Plan: Juan Diego Damon is a 74 year old male Neuro: Pain control with Tylenol. CV: Vasoplegic shock Resolved, off all pressors and inotrops. CAD s/p CABG begin DAPT therapy. Volume overload on lasix 40 mg IV Q6H with excellent diuresis and in negative balance. Will decreaseto Q8H as BUN has been trending upward along with development of metabolic alkalosis. Respiratory: Acute post operative respirator insufficiency CXR reviewed no focal consolidations or infiltrates, has LLL atelectasis. C/w NC and IS. Maintain SpO2>92%. BIPAP qhs and PRN. COPD not in exacerbation add PRN nebs JUANA highly suspected needs PSG as outpatient GI: No active issues : No active issues ID: On vancomycin for surgical ppx, allergic to PCN Heme: Acute blood loss anemia intra op s/p 2 U PRBC with appropriate response. On DAPT therapy. Endo: DM monitor sugar, c/w ISS MSK:No active issues Ventilator Bundle: Sedation/Analgesia + RASS: N/A Stress ulcer prophylaxis:PPI DVT prophylaxis: Heparin Nutrition:Cardiac low salt diet Code status: Full Disposition: ICU Syeda Morse MD Ghazala Crook MD - 01/15/2020 11:33 AM CDT [facility] Progress Note Subjective: Patient seen & examined. Events reviewed. Objective: Vitals: 01/15/20 0700 01/15/20 0800 01/15/20 0900 01/15/20 1000 BP: 121/56 121/65 123/56 119/64 Pulse: 85 89 87 88 Resp: 23 18 23 19 Temp: TempSrc: SpO2: 98% 96% 95% 91% Weight: Height: General: awake, alert, no distress HEENT: NC, AT, PERRLA, EOMI, MMM, anicteric sclera Neck: no JVD/lymphadenopathy CV: RRR, no murmurs, rubs, gallops Lungs: clear to auscultation bilaterally Abdomen: soft, NT, ND, (+)BS Skin: no rashes Extremities: no clubbing, cyanosis, edema Neuro: CN 2-12 intact, no focal deficits Psych: oriented x 3, normal affect Labs: reviewed Current Facility-Administered Medications: insulin glargine (LANTUS U-100) injection 30 Units, 30 Units, Subcutaneous , BID, Renard Hussein MD fenofibrate micronized (LOFIBRA) capsule 134 mg, 134 mg, Oral, DAILY, Chary Martinez MD, 134 mgat 01/15/20 0835 furosemide (LASIX) injection 40 mg, 40 mg, Slow IV Push, Q6H, Isidro Pulido MD, 40 mg at 01/15/20 0611 sildenafil (REVATIO) tablet 10 mg, 10 mg, Oral, DAILY, Isidro Pulido MD, 10 mg at 01/15/20 0859 aspirin chewable tablet 81 mg, 81 mg, Oral, DAILY, Isidro Pulido MD, 81 mg at 01/15/20 0834 docusate (COLACE) 50 mg/5 mL solution 100 mg, 100 mg, Enteral, DAILY, Syeda Morse MD, Stopped at 01/15/20 0900 propofol IV infusion, 5-75 mcg/kg/min, IV Infusion, TITRATE, Syeda Morse MD, Stopped at 01/13/20 0825 acetaminophen (TYLENOL) suppository 650 mg, 650 mg, Rectal, Q6HPRN, Syeda Morse MD acetaminophen (TYLENOL) tablet 650 mg, 650 mg, Oral, Q6HPRN, Syeda Morse MD cardioplegic (PLEGISOL) perfusion solution, , , PRN, Isidro Pulido MD, 1, 000 mL at 01/11/20 0811 clopidogreL (PLAVIX) tablet 75 mg, 75 mg, Oral, DAILY, Syeda Morse MD, 75 mg at 01/15/200836 D5W-LR IV infusion 1,000 mL, 1,000 mL, IV Infusion, CONTINUOUS, Syeda Morse MD, Stopped at 01/11/20 1828 dextrose 50 % in water (D50W) injection 25 mL, 25 mL, Slow IV Push, PRN, Syeda Morse MD DOBUTamine (DOBUTREX) 500 mg in 250 mL (Fixed Dose) D5W infusion RTU, 2.5- 20 mcg/kg/min, IV Infusion, TITRATE, Syeda Morse MD, Stopped at 01/14/20 1200 EPINEPHrine HCl in 0.9 % NaCl 4 mg/250 mL (16 mcg/mL) infusion RTU, 0.01- 0.7 mcg/kg/min, IV Infusion, TITRATELito Radheshyam, MD, Stopped at 0530 glucagon (GLUCAGEN DIAGNOSTIC KIT) injection 1 mg, 1 mg, Intramuscular, PRN , Syeda Morse MD heparin (porcine) injection 5,000 Units, 5,000 Units, Subcutaneous, Q12H, Syeda Morse MD, 5,000 Units at 01/15/20 0838 heparin 1,000 unit/mL 30,000 Units in NaCl 0.9% (NS) 1,000 mL OR irrigation , , , PRNJohn Shuab, MD, 1,000 mL at 01/11/20 0757 heparin 1,000 unit/mL 5,000 Units in NaCl 0.9% (NS) 500 mL OR irrigation, , , PRNJohn Shuab, MD, 500 mL at 01/11/20 0810 milrinone in D5W (PRIMACOR) 40 mg/200 mL infusion RTU, 0.125-0.75 mcg/kg/ min, IV Infusion, TITRATE, Isidro Pulido MD, Stopped at 01/12/20 0424 NaCl 0.9% (NS) bolus infusion 250 mL, 250 mL, IV Infusion, PRN - SEE INSTRUCTIONS, Syeda Morse MD NORepinephrine 4 mg in D5W 250 mL infusion RTU, 0.05-3 mcg/kg/min, IV Infusion, TITRATE, Syeda Morse MD, Stopped at 01/12/20 0541 ondansetron (ZOFRAN (PF)) injection 4 mg, 4 mg, Slow IV Push, Q6HPRN, Syeda Morse MD, 4 mg at 01/14/20 0905 papaverine 60 mg in NaCl 0.9% (NS) 60 mL OR irrigation, , , PRN, Isidor Pulido MD, 60 mL at 01/11/20 0809 sennosides (SENOKOT) tablet 8.6 mg, 8.6 mg, Oral, DAILY, Syeda Morse MD, Stopped at 01/15/20 0900 acetaminophen (TYLENOL) tablet 650 mg, 650 mg, Oral, Q6HPRN, Rivera Fernández MD , 650 mg at 01/14/20 1600 atorvastatin (LIPITOR) tablet 20 mg, 20 mg, Oral, QHS, Rivera Fernández MD, 20 mg at 01/14/20 2030 chlorhexidine (KIKI-HEX) 4 % liquid, , Topical, PRE-PROCEDURE ONCE, Isidro Pulido MD finasteride (PROSCAR) tablet 5 mg, 5 mg, Oral, DAILY, Rivera Fernández MD, 5 mg at 01/15/20 0834 omeprazole (PRILOSEC) capsule 20 mg, 20 mg, Oral, DAILY, Rivera Fernández MD, 20 mg at 01/15/20 0834 Sliding Scale Insulin-Regular + Fsbg Testing, , Subcutaneous, AC+HS, Rivera Fernández MD, 7 Units at 01/15/20 0836 tamsulosin (FLOMAX) capsule 0.4 mg, 0.4 mg, Oral, BID, Rivera Fernández MD, 0.4 mg at 01/15/20 0836 Assessment: Juan Diego Damon is a 74 year old male admitted with: Coronary artery disease - S/P CABG Hypertension Hyperlipidemia Diabetes mellitus BPH GERD Plan: Postoperative care status post CABG Milrinone, Propofol, Epinephrine, Levophed drips IV fluids Resume home medications CT surgery following Blood pressure support as needed Follow chest tube drainage output ICU monitoring, follow blood pressure trend closely Following labs, electrolytes Follow Hgb trend, assess for postoperative bleeding DVT prophylaxis, Lovenox Beta deyvi Antihyperlipidemic Sliding scale insulin, follow blood sugar trend, adjust medications as needed 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 Estes was present during patient encounter, examined patient at bedside , all questions answered Plan discussed with patient 01/12/2020 Currently still intubated and sedated Discussed with pulmonary and cardiothoracic surgery today Will attempt to wean off of ventilator support today Drains still in place Monitoring drain output Following blood sugar closely Sliding scale as needed We'll hold patient's medications orally for now Increase activity once extubated Further recommendations will be based on this patient's clinical course 01/13/2020 Currently still intubated and sedated Yesterday SBT attempted but failed, off epi drip and off flolan now. Will attempt to wean off of ventilator support today Drains still in place Monitoring drain output Following blood sugar closely Sliding scale as needed Hold patient's medications orally for now Acute blood loss anemia intra op s/p 2 U PRBC with appropriate response. On DAPT therapy. Increase activity once extubated Further recommendations will be based on this patient's clinical course 01/13 Extubated OOBC today PT, OT Speech consult for FEES Doing well Chest tubes per CTS Aspirin, statin Fenofibrate started today IV lasix, remains edematous. Continue ICU care 01/15/2020 Chest tubes out On 4L nasal cannula OOBC today, will use bed side commode Calos remains in today as he's on IV lasix. Will reassess tomorrow ICU care PT, OT Am labs. Monitor Cr. Ghazala Vaughan MD Barbara Villarreal MD - 01/15/2020 9:35 AM CDT [facility] Cardiology progress note Date of Service: 01/15/2020 Juan Diego Damon is a 74 years old male s/p CABG and AVR. Extubated. Feeling better. Being diuresed. On Dobutamine. PHYSICAL EXAM Vitals: 01/15/20 0600 01/15/20 0700 01/15/20 0800 01/15/20 0900 BP: 116/89 121/56 121/65 123/56 Pulse: 89 85 89 87 Resp: 27 23 18 23 Temp: TempSrc: SpO2: 96% 98% 96% 95% Weight: Height: General: no apparent distress, obese HEENT: normocephalic atraumatic Neck: supple, no lymphadenopathy, no bruits, no JVD Lungs: clear to auscultation bilaterally Cardio: S1, S2, normal rate, regular; no murmurs, rubs or gallops Abdomen: non-distended : not examined Rectal: not examined Extremities: no clubbing, cyanosis, 1+ pitting edema Skin: no rashes Neuro: intubated Medications: I have reviewed the patient's medications; see Medication Reconciliation. Labs: I have reviewed the patient's labs. Echo 09/2019 There is mild concentric left ventricular hypertrophy. Ejection Fraction=55-60%. Diastolic function is impaired relaxation. The left ventricular wall motion is normal. Moderate valvular aortic stenosis. ASSESSMENT AND PLAN Principal Problem: CAD (coronary artery disease) Active Problems: S/P AVR S/P CABG (coronary artery bypass graft) Nonrheumatic aortic valve stenosis Dyslipidemia Essential hypertension Other emphysema Morbid obesity Acute on chronic diastolic congestive heart failure CAD--3v- CAD s/p CABG 01.11.2020. On ASA + Plavix/Coreg. Lipid panel--optimal LDL. TG elevated. Continue lipitor at 20 mg and change Lopid to fenofibrate. Keep K > 4 and Mag > 2. Acute on chronic HFpEF: On IV lasix 40 mg QID. Will continue for now. Aortic stenosis s/p AVR bioprosthetic 01.11.2020. On ASA. Dyslipidemia: as above. Will continue to follow patient during his hospital stay and provide further recommendations as needed. Barbara Levin MD [facility] Cardiology faculty 01/15/2020 TSRenard powers MD - 01/15/2020 9:12 AM CDT Patient Name: Juan Diego Damon Date of : 1945 Date of Service: 01/15/2020 PCP: Flora Jarrod Damon is a 74 year old male hospitalized for aortic valve replacement and CABG. ROS: Denies chest pain, dyspnea, abdominal pain, nausea, vomiting, fevers, chills, or headaches PHYSICAL EXAM General:well developed, well nourished, intubated, intubated and sedated, obese, awake, alert andoriented HEENT:normocephalic atraumatic, pupils equal, round, reactive to light Neck:full range of motion Lungs:clear to auscultation bilaterally Cardio:S1, S2 normal; no murmurs, rubs or gallops, regular rate and rhythm Abdomen:soft; non-tender; non-distended; normoactive bowel sounds :not examined Rectal:not examined Extremities:no clubbing, cyanosis, or edema Skin:no rashes Neuro:non focal LABS HCT (%) Date Value 01/15/2020 22.7 (L) HGB (g/dL) Date Value 01/15/2020 7.3 (L) WBC (10*3/L) Date Value 01/15/2020 9.85 PROTIME PATIENT (Seconds) Date Value 01/11/2020 14.7 (H) APTT Patient (Seconds) Date Value 01/11/2020 38 (H) NA (mmol/L) Date Value 01/15/2020 139 K (mmol/L) Date Value 01/15/2020 3.6 CL (mmol/L) Date Value 01/15/2020 102 HCO3 (mEq/L) Date Value 01/14/2020 24 BUN (mg/dL) Date Value 01/15/2020 35 (H) CREATININE (mg/dL) Date Value 01/15/2020 1.11 No results found for: CK No results found for: CKMB CALCIUM (mg/dL) Date Value 01/15/2020 7.2 (L) MAGNESIUM (mg/dL) Date Value 01/15/2020 2.4 GLUCOSE (mg/dL) Date Value 01/15/2020 237 (H) INR (no units) Date Value 01/11/2020 1.3 MEDICATIONS Admission Medications No current facility-administered medications on file prior to encounter. Current Outpatient Medications on File Prior to Encounter Medication Sig Dispense Refill carvediloL 6.25 mg tablet Take 1 tablet by mouth 2 (two) times daily with meals. 60 tablet 0 lisinopril-hydrochlorothiazide 20-25 mg per tablet Take 1 tablet by mouth daily. 30 tablet 0 metFORMIN 500 mg tablet Take 1 tablet by mouth 2 (two) times daily with meals. (Patient taking differently: Take 1,000 mg by mouth 2 (two) times daily with meals.) 60 tablet 0 aspirin 81 mg EC tablet Take 1 tablet by mouth daily. atorvastatin 20 mg tablet Take 1 tablet by mouth daily. 90 tablet 3 finasteride 5 mg tablet Take 5 mg by mouth daily. gemfibrozil 600 mg tablet Take 600 mg by mouth 2 (two) times daily before breakfast and dinner. glipiZIDE 10 mg tablet Take 10 mg by mouth 2 (two) times daily before breakfast and dinner. LANTUS U-100 INSULIN 100 unit/mL solution inject 55 Units under the skin 2 ( two) times daily. omeprazole 20 mg capsule Take 20 mg by mouth daily. tamsulosin 0.4 mg 24 hr capsule Take 0.4 mg by mouth 2 (two) times daily. Current Medications Current Facility-Administered Medications Medication Dose Route Frequency Last Rate Last Dose fenofibrate micronized (LOFIBRA) capsule 134 mg 134 mg Oral DAILY 134 mg at 01/15/20 0835 furosemide (LASIX) injection 40 mg 40 mg Slow IV Push Q6H 40 mg at 0611 insulin glargine (LANTUS U-100) injection 40 Units 40 Units Subcutaneous QHS 40 Units at 01/14/20 2043 sildenafil (REVATIO) tablet 10 mg 10 mg Oral DAILY 10 mg at 01/15/20 0859 aspirin chewable tablet 81 mg 81 mg Oral DAILY 81 mg at 01/15/20 0834 docusate (COLACE) 50 mg/5 mL solution 100 mg 100 mg Enteral DAILY Stopped at 01/15/20 0900 propofol IV infusion 5-75 mcg/kg/min IV Infusion TITRATE Stopped at 01/12 0825 acetaminophen (TYLENOL) suppository 650 mg 650 mg Rectal Q6HPRN acetaminophen (TYLENOL) tablet 650 mg 650 mg Oral Q6HPRN cardioplegic (PLEGISOL) perfusion solution PRN 1,000 mL at 01/11/20 0811 clopidogreL (PLAVIX) tablet 75 mg 75 mg Oral DAILY 75 mg at 01/15/20 0836 D5W-LR IV infusion 1,000 mL 1,000 mL IV Infusion CONTINUOUS Stopped at 1828 dextrose 50 % in water (D50W) injection 25 mL 25 mL Slow IV Push PRN DOBUTamine (DOBUTREX) 500 mg in 250 mL (Fixed Dose) D5W infusion RTU 2.5- 20 mcg/kg/min IV Infusion TITRATE Stopped at 01/14/20 1200 EPINEPHrine HCl in 0.9 % NaCl 4 mg/250 mL (16 mcg/mL) infusion RTU 0.01- 0.7 mcg/kg/min IV Infusion TITRATE Stopped at 01/13/20 0530 glucagon (GLUCAGEN DIAGNOSTIC KIT) injection 1 mg 1 mg Intramuscular PRN heparin (porcine) injection 5,000 Units 5,000 Units Subcutaneous Q12H 5, 000 Units at 01/15/200838 heparin 1,000 unit/mL 30,000 Units in NaCl 0.9% (NS) 1,000 mL OR irrigation PRN 1,000 mL at01/11/20 0757 heparin 1,000 unit/mL 5,000 Units in NaCl 0.9% (NS) 500 mL OR irrigation PRN 500 mL at 01/11/20 0810 milrinone in D5W (PRIMACOR) 40 mg/200 mL infusion RTU 0.125-0.75 mcg/kg/ min IV Infusion TITRATE Stopped at 01/12/20 0424 NaCl 0.9% (NS) bolus infusion 250 mL 250 mL IV Infusion PRN - SEE INSTRUCTIONS NORepinephrine 4 mg in D5W 250 mL infusion RTU 0.05-3 mcg/kg/min IV Infusion TITRATE Stopped at 01/12/20 0541 ondansetron (ZOFRAN (PF)) injection 4 mg 4 mg Slow IV Push Q6HPRN 4 mg at 01/14/20 0905 papaverine 60 mg in NaCl 0.9% (NS) 60 mL OR irrigation PRN 60 mL at 08/22 0809 sennosides (SENOKOT) tablet 8.6 mg 8.6 mg Oral DAILY Stopped at 01/15/20 0900 acetaminophen (TYLENOL) tablet 650 mg 650 mg Oral Q6HPRN 650 mg at 1600 atorvastatin (LIPITOR) tablet 20 mg 20 mg Oral QHS 20 mg at 01/14/20 2030 chlorhexidine (KIKI-HEX) 4 % liquid Topical PRE-PROCEDURE ONCE finasteride (PROSCAR) tablet 5 mg 5 mg Oral DAILY 5 mg at 01/15/20 0834 omeprazole (PRILOSEC) capsule 20 mg 20 mg Oral DAILY 20 mg at 01/15/20 0834 Sliding Scale Insulin-Regular + Fsbg Testing Subcutaneous AC+HS 7 Units at 01/15/20 0836 tamsulosin (FLOMAX) capsule 0.4 mg 0.4 mg Oral BID 0.4 mg at 01/15/20 0836 ASSESSMENT AND PLAN Neuro: -acetamiophen Cards: S/p AVR, CABG. -PT/OT -Sildenifil -Aspirin -Plavix Pulm: Chest x-ray improved bilateral pulmonary edema. GI: -Lantus increase to 25mg BID. Slowly increase to home dose over several days. -Colace -Omeprazole Renal: Slight worsening with diuresis. Net neg 1689 -Lasix 40mg q6 -Tamsulosin -Replete potassium ID: WBC decreasing Hem: Hemoglobin stable. Platelets improving Prophy: -heparin Skin: Stage II decubitus ulcer. -Wound care LTD: Right IJ, right radial A-divine, Live, epicardiac wires Dispo: Remain in ICU Isidro Blank MD - 01/15/2020 8:29 AM CDT Cardiothoracic Surgery Date of Service: 01/15/2020 08:29 S/P AVR, CABG PHYSICAL EXAM: Vitals: 01/15/20 0500 01/15/20 0600 01/15/20 0700 01/15/20 0800 BP: 121/65 116/89 121/56 121/65 Pulse: 84 89 85 89 Resp: 26 27 23 18 Temp: TempSrc: SpO2: 96% 96% 98% 96% Weight: 121.3 kg (267 lb 6.7 oz) Height: 1.702 m (5' 7") Intake/Output Summary (Last 24 hours) at 01/15/2020 0829 Last data filed at 01/15/2020 0800 Gross per 24 hour Intake 931 ml Output 2905 ml Net -1974 ml Lungs: clear to auscultation bilaterally Cardio: S1, S2 normal; no murmurs, rubs or gallops Abdomen: soft; non-tender; non-distended; normoactive bowel sounds LABS: Admission on 01/05/2020, Discharged on 01/06/2020 Component Date Value PROTIME PATIENT 01/05/2020 11.8 INR 01/05/2020 1.1 NA 01/05/2020 143 K 01/05/2020 4.0 CL 01/05/2020 107 CO2 TOTAL 01/05/2020 23 AGAP 01/05/2020 13 BUN 01/05/2020 28* GLUCOSE 01/05/2020 108 CREATININE 01/05/2020 0.89 CALCIUM 01/05/2020 8.9 eGFR Calculation (Non-Af* 01/05/2020 83.8 eGFR Calculation (Airam* 01/05/2020 101.6 WBC 01/05/2020 7.17 RBC 01/05/2020 4.37 HGB 01/05/2020 13.4 HCT 01/05/2020 40.6 MCV 01/05/2020 92.9 MCH 01/05/2020 30.7 MCHC 01/05/2020 33.0 RDW-SD 01/05/2020 49.7 RDW-CV 01/05/2020 14.8 PLT 01/05/2020 246 MPV 01/05/2020 9.3* NRBC/100 WBC 01/05/2020 0.0 NRBC x10^3 01/05/2020 <0.01 GRAN MAT (NEUT) % 01/05/2020 62.5 IMM GRAN % 01/05/2020 0.60 LYMPH % 01/05/2020 22.5 MONO % 01/05/2020 8.4 EOS % 01/05/2020 5.2 BASO % 01/05/2020 0.8 GRAN MAT x10^3(ANC) 01/05/2020 4.49 IMM GRAN x10^3 01/05/2020 0.04 LYMPH x10^3 01/05/2020 1.61 MONO x10^3 01/05/2020 0.60 EOS x10^3 01/05/2020 0.37 BASO x10^3 01/05/2020 0.06 HGB A1C 01/05/2020 7.6* POCT GLU 01/05/2020 195* POCT GLU 01/05/2020 238* ACTLR 01/05/2020 289* POCT GLU 01/05/2020 256* POCT GLU 01/06/2020 252* ACTLR 01/05/2020 270* RADIOLOGY: Xr Kub Result Date: 01/14/2020 No bowel distention. RL: 6200 END OF REPORT SSMENT/PLAN Juan Diego Damon is a 74 year old maleS/P AVR, CABG Feels better PT, OT END OF DAILY PROGRESS NOTE HOSPITAL COURSE CURRENT MEDICATIONS - reviewed. Current Facility-Administered Medications Medication Dose Route Frequency Last Rate Last Dose fenofibrate micronized (LOFIBRA) capsule 134 mg 134 mg Oral DAILY furosemide (LASIX) injection 40 mg 40 mg Slow IV Push Q6H 40 mg at 0611 insulin glargine (LANTUS U-100) injection 40 Units 40 Units Subcutaneous QHS 40 Units at 01/14/20 2043 sildenafil (REVATIO) tablet 10 mg 10 mg Oral DAILY 10 mg at 01/14/20 0832 aspirin chewable tablet 81 mg 81 mg Oral DAILY 81 mg at 01/14/20 0843 docusate (COLACE) 50 mg/5 mL solution 100 mg 100 mg Enteral DAILY Stopped at 01/15/20 0900 propofol IV infusion 5-75 mcg/kg/min IV Infusion TITRATE Stopped at 01/12 0825 acetaminophen (TYLENOL) suppository 650 mg 650 mg Rectal Q6HPRN acetaminophen (TYLENOL) tablet 650 mg 650 mg Oral Q6HPRN cardioplegic (PLEGISOL) perfusion solution PRN 1,000 mL at 01/11/20 0811 clopidogreL (PLAVIX) tablet 75 mg 75 mg Oral DAILY 75 mg at 01/14/20 0834 D5W-LR IV infusion 1,000 mL 1,000 mL IV Infusion CONTINUOUS Stopped at 1828 dextrose 50 % in water (D50W) injection 25 mL 25 mL Slow IV Push PRN DOBUTamine (DOBUTREX) 500 mg in 250 mL (Fixed Dose) D5W infusion RTU 2.5- 20 mcg/kg/min IV Infusion TITRATE Stopped at 01/14/20 1200 EPINEPHrine HCl in 0.9 % NaCl 4 mg/250 mL (16 mcg/mL) infusion RTU 0.01- 0.7 mcg/kg/min IV Infusion TITRATE Stopped at 01/13/20 0530 glucagon (GLUCAGEN DIAGNOSTIC KIT) injection 1 mg 1 mg Intramuscular PRN heparin (porcine) injection 5,000 Units 5,000 Units Subcutaneous Q12H 5, 000 Units at 01/14/202031 heparin 1,000 unit/mL 30,000 Units in NaCl 0.9% (NS) 1,000 mL OR irrigation PRN 1,000 mL at01/11/20 0757 heparin 1,000 unit/mL 5,000 Units in NaCl 0.9% (NS) 500 mL OR irrigation PRN 500 mL at 01/11/20 0810 milrinone in D5W (PRIMACOR) 40 mg/200 mL infusion RTU 0.125-0.75 mcg/kg/ min IV Infusion TITRATE Stopped at 01/12/20 0424 NaCl 0.9% (NS) bolus infusion 250 mL 250 mL IV Infusion PRN - SEE INSTRUCTIONS NORepinephrine 4 mg in D5W 250 mL infusion RTU 0.05-3 mcg/kg/min IV Infusion TITRATE Stopped at 01/12/20 0541 ondansetron (ZOFRAN (PF)) injection 4 mg 4 mg Slow IV Push Q6HPRN 4 mg at 01/14/20 0905 papaverine 60 mg in NaCl 0.9% (NS) 60 mL OR irrigation PRN 60 mL at 08/22 0809 sennosides (SENOKOT) tablet 8.6 mg 8.6 mg Oral DAILY Stopped at 01/15/20 0900 acetaminophen (TYLENOL) tablet 650 mg 650 mg Oral Q6HPRN 650 mg at 1600 atorvastatin (LIPITOR) tablet 20 mg 20 mg Oral QHS 20 mg at 01/14/20 2030 chlorhexidine (KIKI-HEX) 4 % liquid Topical PRE-PROCEDURE ONCE finasteride (PROSCAR) tablet 5 mg 5 mg Oral DAILY 5 mg at 01/14/20 0835 omeprazole (PRILOSEC) capsule 20 mg 20 mg Oral DAILY 20 mg at 01/14/20 0834 Sliding Scale Insulin-Regular + Fsbg Testing Subcutaneous AC+HS 5 Units at 01/14/20 181 tamsulosin (FLOMAX) capsule 0.4 mg 0.4 mg Oral BID 0.4 mg at 01/14/202029 Kai Pool SW - 01/14/2020 4:27 PM CDTSocial Worker Note Sw spoke with SIRIA العراقي DAUGHTER MPOA [phone] regarding discharge therapy recommendations forIR level of care at time of discharge. She is going to tour [facility] in [place] and [place] [phone] Spike will follow up with patient daughter on Friday. STEPHANIE Carr- ACM Supriya Forbes, FISHERIES OFFICER - 01/14/2020 2:50 PM CDTSpeech-Language Pathology 01/14/2020 2:51 PM FEES completed. There was aspiration with cough response with thin liquids. There was penetration with nectar thick liquids. There was mild to moderate diffuse pharyngeal residue following all consistencies and poor clearance of the camera, suggestive of decreased pharyngeal constriction, tongue base retraction, and/or hyolaryngeal excursion. Recommend mechanical soft diet and nectar thick liquids. Swallow precautions: fully upright positioning for PO intake, alternate every bite of solid with sipof liquid, straws ok Recommend free water protocol (small amounts of ice chips only) PRN for QOL, despite aspiration risks, with strict adherence to the following precaution: Oral hygiene/care must be completed prior to ice intake, wait 30 mins after other PO intake, sit upright. Full report to follow. Supriya Hicks M.S., [facility]-[employer] OFFICER Speech-Language Pathologist Pager: [phone] Office: [phone] signed by Supriya Hicks, FISHERIES OFFICER at 01/14/2020 4:34 PM Isidro Blank MD - 01/14/2020 1:17 PM CDT Cardiothoracic Surgery Date of Service: 01/14/2020 13:17 S/P AVR, CABG PHYSICAL EXAM: Vitals: 01/14/20 0800 01/14/20 1100 01/14/20 1138 01/14/20 1200 BP: Pulse: 93 Resp: 20 Temp: 37 C (98.6 F) 36.7 C (98.1 F) TempSrc: Oral SpO2: 94% Weight: 128.5 kg (283 lb 4.7 oz) Height: Intake/Output Summary (Last 24 hours) at 01/14/2020 1317 Last data filed at 01/14/2020 0551 Gross per 24 hour Intake 1994.6 ml Output 3185 ml Net -1190.4 ml Lungs: clear to auscultation bilaterally Cardio: S1, S2 normal; no murmurs, rubs or gallops Abdomen: soft; non-tender; non-distended; normoactive bowel sounds LABS: Admission on 01/05/2020, Discharged on 01/06/2020 Component Date Value PROTIME PATIENT 01/05/2020 11.8 INR 01/05/2020 1.1 NA 01/05/2020 143 K 01/05/2020 4.0 CL 01/05/2020 107 CO2 TOTAL 01/05/2020 23 AGAP 01/05/2020 13 BUN 01/05/2020 28* GLUCOSE 01/05/2020 108 CREATININE 01/05/2020 0.89 CALCIUM 01/05/2020 8.9 eGFR Calculation (Non-Af* 01/05/2020 83.8 eGFR Calculation (Airam* 01/05/2020 101.6 WBC 01/05/2020 7.17 RBC 01/05/2020 4.37 HGB 01/05/2020 13.4 HCT 01/05/2020 40.6 MCV 01/05/2020 92.9 MCH 01/05/2020 30.7 MCHC 01/05/2020 33.0 RDW-SD 01/05/2020 49.7 RDW-CV 01/05/2020 14.8 PLT 01/05/2020 246 MPV 01/05/2020 9.3* NRBC/100 WBC 01/05/2020 0.0 NRBC x10^3 01/05/2020 <0.01 GRAN MAT (NEUT) % 01/05/2020 62.5 IMM GRAN % 01/05/2020 0.60 LYMPH % 01/05/2020 22.5 MONO % 01/05/2020 8.4 EOS % 01/05/2020 5.2 BASO % 01/05/2020 0.8 GRAN MAT x10^3(ANC) 01/05/2020 4.49 IMM GRAN x10^3 01/05/2020 0.04 LYMPH x10^3 01/05/2020 1.61 MONO x10^3 01/05/2020 0.60 EOS x10^3 01/05/2020 0.37 BASO x10^3 01/05/2020 0.06 HGB A1C 01/05/2020 7.6* POCT GLU 01/05/2020 195* POCT GLU 01/05/2020 238* ACTLR 01/05/2020 289* POCT GLU 01/05/2020 256* POCT GLU 01/06/2020 252* ACTLR 01/05/2020 270* RADIOLOGY: Xr Chest 1 Vw Result Date: 01/13/2020 Improved aeration with residual edema type pattern. Atelectasis and effusion left base. SSMENT/PLAN Juan Diego Damon is a 74 year old maleS/P AVR, CABG Feels better Wean dobuatamine PT, OT END OF DAILY PROGRESS NOTE HOSPITAL COURSE CURRENT MEDICATIONS - reviewed. Current Facility-Administered Medications Medication Dose Route Frequency Last Rate Last Dose [START ON 01/15/2020] fenofibrate micronized (LOFIBRA) capsule 134 mg 134 mg Oral DAILY furosemide (LASIX) injection 20 mg 20 mg Slow IV Push Q8H 20 mg at 0450 sildenafil (REVATIO) tablet 10 mg 10 mg Oral DAILY 10 mg at 01/14/20 0832 aspirin chewable tablet 81 mg 81 mg Oral DAILY 81 mg at 01/14/20 0843 docusate (COLACE) 50 mg/5 mL solution 100 mg 100 mg Enteral DAILY 100 mg at 01/14/20 0832 propofol IV infusion 5-75 mcg/kg/min IV Infusion TITRATE Stopped at 01/12 0825 acetaminophen (TYLENOL) suppository 650 mg 650 mg Rectal Q6HPRN acetaminophen (TYLENOL) tablet 650 mg 650 mg Oral Q6HPRN cardioplegic (PLEGISOL) perfusion solution PRN 1,000 mL at 01/11/20 0811 clopidogreL (PLAVIX) tablet 75 mg 75 mg Oral DAILY 75 mg at 01/14/20 0834 D5W-LR IV infusion 1,000 mL 1,000 mL IV Infusion CONTINUOUS Stopped at 1828 dextrose 50 % in water (D50W) injection 25 mL 25 mL Slow IV Push PRN DOBUTamine (DOBUTREX) 500 mg in 250 mL (Fixed Dose) D5W infusion RTU 2.5- 20 mcg/kg/min IV Infusion TITRATE 6.7 mL/hr at 01/14/20 0511 2 mcg/kg/min at 0511 EPINEPHrine HCl in 0.9 % NaCl 4 mg/250 mL (16 mcg/mL) infusion RTU 0.01- 0.7 mcg/kg/min IV Infusion TITRATE Stopped at 01/13/20 0530 furosemide (LASIX) injection 20 mg 20 mg IV Push PRN 20 mg at 01/13/20 2357 gentamicin 40 mg/mL 80 mg, vancomycin (VANCOCIN) 1,000 mg in NaCl 0.9% (NS) 1,000 mL OR irrigation PRN 1,000 mL at 01/11/20 0810 glucagon (GLUCAGEN DIAGNOSTIC KIT) injection 1 mg 1 mg Intramuscular PRN heparin (porcine) injection 5,000 Units 5,000 Units Subcutaneous Q12H 5, 000 Units at 01/14/200835 heparin 1,000 unit/mL 30,000 Units in NaCl 0.9% (NS) 1,000 mL OR irrigation PRN 1,000 mL at01/11/20 0757 heparin 1,000 unit/mL 5,000 Units in NaCl 0.9% (NS) 500 mL OR irrigation PRN 500 mL at 01/11/20 0810 insulin regular human (HUMULIN R) 100 Units in NaCl 0.9% (NS) 100 mL infusion 2 Units/hr IV Infusion TITRATE 5 mL/hr at 01/14/20 0800 5 Units/hr at 01/14/20 0800 milrinone in D5W (PRIMACOR) 40 mg/200 mL infusion RTU 0.125-0.75 mcg/kg/ min IV Infusion TITRATE Stopped at 01/12/20 0424 NaCl 0.9% (NS) bolus infusion 250 mL 250 mL IV Infusion PRN - SEE INSTRUCTIONS NORepinephrine 4 mg in D5W 250 mL infusion RTU 0.05-3 mcg/kg/min IV Infusion TITRATE Stopped at 01/12/20 0541 ondansetron (ZOFRAN (PF)) injection 4 mg 4 mg Slow IV Push Q6HPRN 4 mg at 01/14/20 0905 papaverine 60 mg in NaCl 0.9% (NS) 60 mL OR irrigation PRN 60 mL at 08/22 0809 sennosides (SENOKOT) tablet 8.6 mg 8.6 mg Oral DAILY 8.6 mg at 01/14/20 0844 acetaminophen (TYLENOL) tablet 650 mg 650 mg Oral Q6HPRN atorvastatin (LIPITOR) tablet 20 mg 20 mg Oral QHS Stopped at 01/13/20 202 carvediloL (COREG) tablet 6.25 mg 6.25 mg Oral BID MEALS Stopped at 01/10 1700 chlorhexidine (KIKI-HEX) 4 % liquid Topical PRE-PROCEDURE ONCE finasteride (PROSCAR) tablet 5 mg 5 mg Oral DAILY 5 mg at 01/14/20 0835 omeprazole (PRILOSEC) capsule 20 mg 20 mg Oral DAILY 20 mg at 01/14/20 0834 Sliding Scale Insulin-Regular + Fsbg Testing Subcutaneous AC+HS Stopped at 01/11/202099 tamsulosin (FLOMAX) capsule 0.4 mg 0.4 mg Oral BID 0.4 mg at 01/14/20 0834 Syeda Valadez MD - 01/14/2020 10:52 AM CDT Critical Care Medicine Progress Note Date of Service: 01/14/2020 ICU Day:4 Intubation Day:3, extubated on 01/12 Last 24 hour events (major events): Yesterday extubated to BIPAP, used it overnight now on HFNC. Subjective: Denies chest pain, dyspnea, abdominal pain, nausea, vomiting, fevers, chills, or headaches Lines (with dates):PIV, Right IJ PAC, Chest tube x3, radial arterial line Ilve:Yes Intake/Output: Intake/Output Summary (Last 24 hours) at 01/14/2020 1052 Last data filed at 01/14/2020 0551 Gross per 24 hour Intake 1994.6 ml Output 3960 ml Net -1965.4 ml Physical Exam: Temp: [37.4 C (99.3 F)-37.7 C (99.9 F)] Heart Rate (monitor): [97-103] Pulse: [93-150] Resp: [11-47] BP: (108-151)/(44-85) Arterial Line BP: (103-172)/(43-61) MAP (mmHg): [72-105] MAP: [67 mmHg-97 mmHg] General: well developed, well nourished, intubated, intubated and sedated, obese , awake, alert and oriented HEENT: normocephalic atraumatic, pupils equal, round, reactive to light Neck: full range of motion Lungs: clear to auscultation bilaterally Cardio: S1, S2 normal; no murmurs, rubs or gallops, regular rate and rhythm Abdomen: soft; non-tender; non-distended; normoactive bowel sounds : not examined Rectal: not examined Extremities: no clubbing, cyanosis, or edema Skin: no rashes Neuro: non focal Labs (pertinent only)/Imaging: Recent Results (from the past 24 hour(s)) POCT GLUCOSE (AUTOMATED) Collection Time: 01/13/20 11:02 AM Result Value Ref Range POCT GLU 152 (H) 70 - 110 mg/dL ABG+COOX+NA+K+GLU+CA2+ Collection Time: 01/13/20 11:57 AM Result Value Ref Range PH 7.46 (H) 7.35 - 7.45 PCO2 34 (L) 35 - 45 mmHg PO2 84 80 - 100 mmHg HCO3 24 22 - 26 mEq/L BE 0.3 -3.0 - 3.0 mEq/L THB 9.2 (L) 13.5 - 18.0 g/dL %O2HB 95.9 94.0 - 99.0 % %COHB ART 0.0 0.0 - 1.5 % %METHB ART 0.3 (L) 0.4 - 1.5 % VOL%O2 ART 12.5 (L) 15.0 - 23.0 % NA 138 135 - 145 mmol/L K+ 3.9 3.5 - 5.0 mmol/L AC CA IONZ 4.30 (L) 4.50 - 5.30 mg/dL GLUCOSE 140 (H) 70 - 110 mg/dL POCT GLUCOSE (AUTOMATED) Collection Time: 01/13/20 1:06 PM Result Value Ref Range POCT GLU 145 (H) 70 - 110 mg/dL ABG+COOX+NA+K+GLU+CA2+ Collection Time: 01/13/20 2:10 PM Result Value Ref Range PH 7.44 7.35 - 7.45 PCO2 32 (L) 35 - 45 mmHg PO2 111 (H) 80 - 100 mmHg HCO3 21 (L) 22 - 26 mEq/L BE -2.2 -3.0 - 3.0 mEq/L THB 9.1 (L) 13.5 - 18.0 g/dL %O2HB 97.6 94.0 - 99.0 % %COHB ART 0.2 0.0 - 1.5 % %METHB ART 0.1 (L) 0.4 - 1.5 % VOL%O2 ART 12.7 (L) 15.0 - 23.0 % NA 138 135 - 145 mmol/L K+ 4.0 3.5 - 5.0 mmol/L AC CA IONZ 4.20 (L) 4.50 - 5.30 mg/dL GLUCOSE 162 (H) 70 - 110 mg/dL POCT GLUCOSE (AUTOMATED) Collection Time: 01/13/20 3:14 PM Result Value Ref Range POCT GLU 195 (H) 70 - 110 mg/dL POCT GLUCOSE (AUTOMATED) Collection Time: 01/13/20 3:50 PM Result Value Ref Range POCT GLU 204 (H) 70 - 110 mg/dL BASIC METABOLIC PANEL (NA, K, CL, CO2, GLUCOSE, BUN, CREATININE, CA) Collection Time: 01/13/20 5:08 PM Result Value Ref Range NA 140 135 - 145 mmol/L K 3.7 3.5 - 5.0 mmol/L CL 105 98 - 108 mmol/L CO2 TOTAL 26 23 - 31 mmol/L AGAP 9 2 - 16 BUN 18 7 - 23 mg/dL GLUCOSE 178 (H) 70 - 110 mg/dL CREATININE 0.88 0.60 - 1.25 mg/dL CALCIUM 7.5 (L) 8.6 - 10.6 mg/dL eGFR Calculation (Non-) 84.9 mL/min/1.73m2 eGFR Calculation () 102.9 mL/min/1.73m2 MAGNESIUM Collection Time: 01/13/20 5:08 PM Result Value Ref Range MAGNESIUM 2.1 1.7 - 2.4 mg/dL PHOSPHORUS Collection Time: 01/13/20 5:08 PM Result Value Ref Range PHOSPHORUS 2.3 (L) 2.5 - 5.0 mg/dL POCT GLUCOSE (AUTOMATED) Collection Time: 01/13/20 5:11 PM Result Value Ref Range POCT GLU 196 (H) 70 - 110 mg/dL POCT GLUCOSE (AUTOMATED) Collection Time: 01/13/20 6:01 PM Result Value Ref Range POCT GLU 191 (H) 70 - 110 mg/dL POCT GLUCOSE (AUTOMATED) Collection Time: 01/13/20 8:05 PM Result Value Ref Range POCT GLU 145 (H) 70 - 110 mg/dL POCT GLUCOSE (AUTOMATED) Collection Time: 01/13/20 9:01 PM Result Value Ref Range POCT GLU 133 (H) 70 - 110 mg/dL POCT GLUCOSE (AUTOMATED) Collection Time: 01/13/20 10:07 PM Result Value Ref Range POCT GLU 131 (H) 70 - 110 mg/dL POCT GLUCOSE (AUTOMATED) Collection Time: 01/13/20 11:05 PM Result Value Ref Range POCT GLU 134 (H) 70 - 110 mg/dL ACUTE CARE VENOUS BLOOD GAS Collection Time: 01/14/20 12:06 AM Result Value Ref Range PH 7.39 7.32 - 7.42 PCO2 EMELY 39 (L) 41 - 51 mmHg PO2 EMELY 36 25 - 40 mmHg HCO3 EMELY 23 (L) 24 - 28 mEq/L AC VBE(BEAKER) -1.9 mEq/L POCT GLUCOSE (AUTOMATED) Collection Time: 01/14/20 1:18 AM Result Value Ref Range POCT GLU 181 (H) 70 - 110 mg/dL POCT GLUCOSE (AUTOMATED) Collection Time: 01/14/20 2:08 AM Result Value Ref Range POCT GLU 201 (H) 70 - 110 mg/dL BASIC METABOLIC PANEL (NA, K, CL, CO2, GLUCOSE, BUN, CREATININE, CA) Collection Time: 01/14/20 2:29 AM Result Value Ref Range NA 140 135 - 145 mmol/L K 3.5 3.5 - 5.0 mmol/L CL 105 98 - 108 mmol/L CO2 TOTAL 25 23 - 31 mmol/L AGAP 10 2 - 16 BUN 20 7 - 23 mg/dL GLUCOSE 184 (H) 70 - 110 mg/dL CREATININE 0.86 0.60 - 1.25 mg/dL CALCIUM 6.9 (L) 8.6 - 10.6 mg/dL eGFR Calculation (Non-) 87.2 mL/min/1.73m2 eGFR Calculation () 105.7 mL/min/1.73m2 MAGNESIUM Collection Time: 01/14/20 2:29 AM Result Value Ref Range MAGNESIUM 1.9 1.7 - 2.4 mg/dL PHOSPHORUS Collection Time: 01/14/20 2:29 AM Result Value Ref Range PHOSPHORUS 2.4 (L) 2.5 - 5.0 mg/dL CBC WITH DIFFERENTIAL Collection Time: 01/14/20 2:29 AM Result Value Ref Range WBC 10.32 4.20 - 10.70 10*3/L RBC 2.53 (L) 4.26 - 5.52 10*6/L HGB 7.6 (L) 12.2 - 16.4 g/dL HCT 24.1 (L) 38.4 - 49.3 % MCV 95.3 81.7 - 95.6 fL MCH 30.0 26.1 - 32.7 pg MCHC 31.5 31.2 - 35.0 g/dL RDW-SD 54.2 (H) 38.5 - 51.6 fL RDW-CV 15.5 (H) 12.1 - 15.4 % PLT 112 (L) 150 - 328 10*3/L MPV 10.0 9.8 - 13.0 fL NRBC/100 WBC 0.0 0.0 - 10.0 /100 WBCs NRBC x10^3 <0.01 10*3/L GRAN MAT (NEUT) % 82.6 % IMM GRAN % 0.60 % LYMPH % 8.1 % MONO % 7.1 % EOS % 1.3 % BASO % 0.3 % GRAN MAT x10^3(ANC) 8.53 (H) 1.99 - 6.95 10*3/uL IMM GRAN x10^3 0.06 0.00 - 0.06 10*3/uL LYMPH x10^3 0.84 (L) 1.09 - 3.23 10*3/uL MONO x10^3 0.73 0.36 - 1.02 10*3/uL EOS x10^3 0.13 0.06 - 0.53 10*3/uL BASO x10^3 0.03 0.01 - 0.09 10*3/uL POCT GLUCOSE (AUTOMATED) Collection Time: 01/14/20 3:20 AM Result Value Ref Range POCT GLU 192 (H) 70 - 110 mg/dL ABG+COOX+NA+K+GLU+CA2+ Collection Time: 01/14/20 4:19 AM Result Value Ref Range PH 7.45 7.35 - 7.45 PCO2 29 (L) 35 - 45 mmHg PO2 80 80 - 100 mmHg HCO3 20 (L) 22 - 26 mEq/L BE -3.4 (L) -3.0 - 3.0 mEq/L THB 9.3 (L) 13.5 - 18.0 g/dL %O2HB 95.5 94.0 - 99.0 % %COHB ART 0.2 0.0 - 1.5 % %METHB ART 0.3 (L) 0.4 - 1.5 % VOL%O2 ART 12.6 (L) 15.0 - 23.0 % NA 138 135 - 145 mmol/L K+ 3.7 3.5 - 5.0 mmol/L AC CA IONZ 4.40 (L) 4.50 - 5.30 mg/dL GLUCOSE 161 (H) 70 - 110 mg/dL AC PANEL 21 + LACTIC ACID Collection Time: 01/14/20 4:43 AM Result Value Ref Range PH 7.36 7.32 - 7.42 PCO2 EMELY 38 (L) 41 - 51 mmHg PO2 EMELY 34 25 - 40 mmHg HCO3 EMELY 21 (L) 24 - 28 mEq/L AC VBE(BEAKER) -4.5 mEq/L THB EMELY 9.0 (L) 13.5 - 18.0 g/dL %O2HB EMELY 58.9 52.0 - 63.0 % %COHB EMEYL 0.6 0.0 - 1.5 % %METHB EMELY 0.3 (L) 0.4 - 1.5 % VOL%O2 EMELY 7.5 6.0 - 12.0 % NA 138 135 - 145 mmol/L K+ 3.7 3.5 - 5.0 mmol/L AC CA IONZ 4.50 4.50 - 5.30 mg/dL GLUCOSE 237 (H) 70 - 110 mg/dL LACTIC ACID 2.10 0.50 - 2.20 mmol/L POCT GLUCOSE (AUTOMATED) Collection Time: 01/14/20 5:21 AM Result Value Ref Range POCT GLU 180 (H) 70 - 110 mg/dL POCT GLUCOSE (AUTOMATED) Collection Time: 01/14/20 8:09 AM Result Value Ref Range POCT GLU 159 (H) 70 - 110 mg/dL Xr Chest 1 Vw Result Date: 01/11/2020 Lines and tubes, as above.. Cardiomegaly with mild edema. Small left effusion. Patchy right basilar atelectasis versus infiltrate. Right upper lobe nodule measuring 9 mm, recommend comparison to prior exams. RL: [id number] Assessment/Plan: Juan Diego Damon is a 74 year old male Neuro: Pain control with tyleno. CV: Vasoplegic shock improving s/p CABG on doubatmine drip. Maintain MAP>65 and CI>2. Monitor PAP. Wean inotropes and pressors as tolerated CAD s/p CABG begin DAPT therapy. Respiratory: Acute post operative respirator insufficiency CXR reviewed no focal consolidations or infiltrates, has edema. C/w HFNC add IS. Maintain SpO2 >92%. BIPAP qhs and PRN. COPD not in exacerbation add PRN nebs JUANA highly suspected needs PSG as outpatient GI: No active issues : Hypomagnesemia repleted, repeat levels ID: On vancomycin for surgical ppx, allergic to PCN Heme: Acute blood loss anemia intra op s/p 2 U PRBC with appropriate response. On DAPT therapy. Endo: DM monitor sugar, begin insulin drip if glucose >200 MSK:No active issues Ventilator Bundle: Sedation/Analgesia + RASS: Propofol N/A Stress ulcer prophylaxis:PPI DVT prophylaxis: Heparin Nutrition:Cardiac low salt diet Code status: Full Disposition: ICU Syeda Morse MD Critical care time 35 minutes, excluding procedures Kristina Denis PTA - 01/14/2020 10:32 AM CDTPhysical Therapy Progress Note: Recommendations: Primary discharge plan: rehabilitation hospital Equipment recommendations: defer to facility PAIN: denies pain PRECAUTIONS: Weight Bearing Precaution: WBAT General Precautions: General, Fall, Sternal, Cardiac Live catheter, Chest tube x 3, oxygen: High-flow nasal canula Bracing/Cast present or required:N/A S: Patient agreeable to working with PT. RN clear PT to work with patient. O: Patient met Up in chair. Patient seen for the following: Transfers: -Sit to stand x 3 trials: Dependent x 3 using no device -Stand to sit x 3 trials: Dependent x 3 using no device -Static/dynamic standing balance: Poor -patient unable to stand fully upright due to c/o fatigue and weakness -Verbal cueing provided for correct hand placement and correct use of AD - cued provided for postural adjustment Therapeutic exercise: instructed patient in the following: ankle pumps, quad sets, glut sets, adductor sets, heel slides,hip abduction/adduction, straight leg raises, short arc quads, long arc quads, seated marching, patient/caregiver instructed to perform HEP 3 times per day, 10 repetitions. -introduced supine and sitting therex HEP to help improve krissy LE strength - patient performing sitting krissy LE AROM x 10 reps: long arc quads - cued provided to slow paced down -provided patient with visual comprehensive HEP along with detailed instructions (visual/verbal demo) on how to correctly perform all exercise reps -Educated the importance of compliance with performance of all exercises to help with increasing overall strength, endurance, flexibility, and ROM -patient/caregiver verbalizing understanding to all discussed Patient and Family member provided with preferred teaching of verbal information , written information and demonstration on sternal precautions, krissy LE therex HEP, balance, functional mobility, and safety awareness. Shows readiness to learn. Verbal instruction and Written material teaching provided. Individual is able to read and verbalizes understanding of teaching provided. After session, patient Up in chair, with daughter in room and call stevens provided. RN notified. A: Patient tolerated session fair. Patient progressing toward goals #2, #4. Patient presenting lethargic throughout session. RN and chargeback specialist notified. Patient unable to stand fully upright during transfers. Inform chargeback specialist to have patient in chair during the weekend. Educated patient's daughterof krissy therex and perform daily 3 x to help improve krissy LE strength. P: PT will - attempt pre-gait therex next session. Total Timed Tx Codes in Minutes: 27 Min Total Treatment Time in Minutes: 27 Min Kristina Mann PTA Pager # [phone] Supervising PT Erika Grayson PT, DPT Ghazala Crook MD - 01/14/2020 10:28 AM CDT [facility] Progress Note Subjective: Patient seen & examined. Events reviewed. Objective: Vitals: 01/14/20 0320 01/14/20 0400 01/14/20 0500 01/14/20 0600 BP: 118/54 127/66 122/65 Pulse: 104 103 99 101 Resp: (!) 47 22 26 29 Temp: TempSrc: SpO2: 97% 97% 95% 96% Weight: Height: General: awake, alert, no distress HEENT: NC, AT, PERRLA, EOMI, MMM, anicteric sclera Neck: no JVD/lymphadenopathy CV: RRR, no murmurs, rubs, gallops Lungs: clear to auscultation bilaterally Abdomen: soft, NT, ND, (+)BS Skin: no rashes Extremities: no clubbing, cyanosis, edema Neuro: CN 2-12 intact, no focal deficits Psych: oriented x 3, normal affect Labs: reviewed Current Facility-Administered Medications: [START ON 01/15/2020] fenofibrate micronized (LOFIBRA) capsule 134 mg, 134 mg, Oral, DAILY, Chary Martinez MD furosemide (LASIX) injection 20 mg, 20 mg, Slow IV Push, Q8H, Isidro Pulido MD, 20 mg at 01/14/20 0450 sildenafil (REVATIO) tablet 10 mg, 10 mg, Oral, DAILY, Isidro Pulido MD, 10 mg at 01/14/20 0832 aspirin chewable tablet 81 mg, 81 mg, Oral, DAILY, Isidro Pulido MD, 81 mg at 01/14/20 0843 docusate (COLACE) 50 mg/5 mL solution 100 mg, 100 mg, Enteral, DAILY, Syeda Morse MD, 100 mg at 01/14/20 0832 HYDROcodone-acetaminophen (NORCO 5) 5-325 mg tablet 1 tablet, 1 tablet, Oral, Q6HPRN, Syeda Morse MD, 1 tablet at 01/14/20 0834 propofol IV infusion, 5-75 mcg/kg/min, IV Infusion, TITRATE, Syeda Morse MD, Stopped at 01/13/20 0825 acetaminophen (TYLENOL) suppository 650 mg, 650 mg, Rectal, Q6HPRN, Syeda Morse MD acetaminophen (TYLENOL) tablet 650 mg, 650 mg, Oral, Q6HPGisselN, Syeda Morse MD cardioplegic (PLEGISOL) perfusion solution, , , PRN, Isidro Pulido MD, 1, 000 mL at 01/11/20 0811 clopidogreL (PLAVIX) tablet 75 mg, 75 mg, Oral, DAILY, Syeda Morse MD, 75 mg at 01/14/200834 D5W-LR IV infusion 1,000 mL, 1,000 mL, IV Infusion, CONTINUOUS, Syeda Morse MD, Stopped at 01/11/20 1828 dextrose 50 % in water (D50W) injection 25 mL, 25 mL, Slow IV Push, PRN, Syeda Morse MD DOBUTamine (DOBUTREX) 500 mg in 250 mL (Fixed Dose) D5W infusion RTU, 2.5- 20 mcg/kg/min, IV Infusion, TITRATE, Syeda Morse MD, Last Rate: 6.7 mL/ hr at 01/14/20 0511, 2 mcg/kg/min at 01/14/20 0511 EPINEPHrine HCl in 0.9 % NaCl 4 mg/250 mL (16 mcg/mL) infusion RTU, 0.01- 0.7 mcg/kg/min, IV Infusion, TITRATE, Syeda Morse MD, Stopped at 0530 furosemide (LASIX) injection 20 mg, 20 mg, IV Push, PRN, Syeda Morse MD, 20 mg at 01/13/20 2357 gentamicin 40 mg/mL 80 mg, vancomycin (VANCOCIN) 1,000 mg in NaCl 0.9% (NS ) 1,000 mL OR irrigation, , , PRN, Isidro Pulido MD, 1,000 mL at 01/11/20 0810 glucagon (GLUCAGEN DIAGNOSTIC KIT) injection 1 mg, 1 mg, Intramuscular, PRN , Syeda Morse MD heparin (porcine) injection 5,000 Units, 5,000 Units, Subcutaneous, Q12H, Syeda Morse MD, 5,000 Units at 01/14/20 0835 heparin 1,000 unit/mL 30,000 Units in NaCl 0.9% (NS) 1,000 mL OR irrigation , , , PRSloan, Isidro Pulido MD, 1,000 mL at 01/11/20 0757 heparin 1,000 unit/mL 5,000 Units in NaCl 0.9% (NS) 500 mL OR irrigation, , , John RICHARDSON Shuab, MD, 500 mL at 01/11/20 0810 insulin regular human (HUMULIN R) 100 Units in NaCl 0.9% (NS) 100 mL infusion, 2 Units/hr, IV Infusion, TITRATE, Syeda Morse MD, Last Rate: 5 mL/hr at 01/14/20 0800, 5 Units/hr at 01/14/20 0800 milrinone in D5W (PRIMACOR) 40 mg/200 mL infusion RTU, 0.125-0.75 mcg/kg/ min, IV Infusion, TITRATE, Isidro Pulido MD, Stopped at 01/12/20 0424 NaCl 0.9% (NS) bolus infusion 250 mL, 250 mL, IV Infusion, PRN - SEE INSTRUCTIONS, Syeda Morse MD NORepinephrine 4 mg in D5W 250 mL infusion RTU, 0.05-3 mcg/kg/min, IV Infusion, TITRATE, Syeda Morse MD, Stopped at 01/12/20 0541 ondansetron (ZOFRAN (PF)) injection 4 mg, 4 mg, Slow IV Push, Q6HPRN, Syeda Morse MD, 4 mg at 01/14/20 0905 papaverine 60 mg in NaCl 0.9% (NS) 60 mL OR irrigation, , , PRN, Isidro Pulido MD, 60 mL at 01/11/20 0809 sennosides (SENOKOT) tablet 8.6 mg, 8.6 mg, Oral, DAILY, Syeda Morse MD, 8.6 mg at 01/14/20 0844 acetaminophen (TYLENOL) tablet 650 mg, 650 mg, Oral, Q6HPRN, Rivera Fernández MD atorvastatin (LIPITOR) tablet 20 mg, 20 mg, Oral, QHS, Rivera Fernández MD, Stopped at 01/13/20 202 carvediloL (COREG) tablet 6.25 mg, 6.25 mg, Oral, BID MEALS, Rivera Fernández MD , 6.25 mg at 01/14/200832 chlorhexidine (KIKI-HEX) 4 % liquid, , Topical, PRE-PROCEDURE ONCE, Isidro Pulido MD finasteride (PROSCAR) tablet 5 mg, 5 mg, Oral, DAILY, Rivera Fernández MD, 5 mg at 01/14/20 0835 omeprazole (PRILOSEC) capsule 20 mg, 20 mg, Oral, DAILY, Rivera Fernández MD, 20 mg at 01/14/20 0834 Sliding Scale Insulin-Regular + Fsbg Testing, , Subcutaneous, AC+HS, Rivera Fernández MD, Stopped at 01/11/20 2100 tamsulosin (FLOMAX) capsule 0.4 mg, 0.4 mg, Oral, BID, Rivera Fernández MD, 0.4 mg at 01/14/20 0834 Assessment: Juan Diego Damon is a 74 year old male admitted with: Coronary artery disease - S/P CABG Hypertension Hyperlipidemia Diabetes mellitus BPH GERD Plan: Postoperative care status post CABG Milrinone, Propofol, Epinephrine, Levophed drips IV fluids Resume home medications CT surgery following Blood pressure support as needed Follow chest tube drainage output ICU monitoring, follow blood pressure trend closely Following labs, electrolytes Follow Hgb trend, assess for postoperative bleeding DVT prophylaxis, Lovenox Beta deyvi Antihyperlipidemic Sliding scale insulin, follow blood sugar trend, adjust medications as needed 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 Estes was present during patient encounter, examined patient at bedside , all questions answered Plan discussed with patient 01/12/2020 Currently still intubated and sedated Discussed with pulmonary and cardiothoracic surgery today Will attempt to wean off of ventilator support today Drains still in place Monitoring drain output Following blood sugar closely Sliding scale as needed We'll hold patient's medications orally for now Increase activity once extubated Further recommendations will be based on this patient's clinical course 01/13/2020 Currently still intubated and sedated Yesterday SBT attempted but failed, off epi drip and off flolan now. Will attempt to wean off of ventilator support today Drains still in place Monitoring drain output Following blood sugar closely Sliding scale as needed Hold patient's medications orally for now Acute blood loss anemia intra op s/p 2 U PRBC with appropriate response. On DAPT therapy. Increase activity once extubated Further recommendations will be based on this patient's clinical course 01/13 Extubated OOBC today PT, OT Speech consult for FEES Doing well Chest tubes per CTS Aspirin, statin Fenofibrate started today IV lasix, remains edematous. Continue ICU care Ghazala Vaughan MD Liana Thompson OT - 01/14/2020 10:18 AM CDTOCCUPATIONAL THERAPY NOTE: Discharge Recommendations: Primary Discharge Plan: Rehabilitation hospital Equipment Recommendations: Defer to facility Precautions: Weight bearing status: No lifting greater than 5 lbs. General: Fall, logroll, Sternal and high flow nasal cannula Bracing: N/A S: Patient agreeable to participate in occupational therapy. "OK, I will try." PAIN Pre-treatment: 0/10 pain at N/A. Post-treatment: 0/10 pain at N/A. Patient denies need for pain meds. O: Patient found seated upright in recliner. Daughter present. Patient seen this date for the following: ADL Training Patient non-compliant with sternal precautions during session. Patient educated about the following adaptive equipment: Rolling Walker. Handout issued, No. Patient educated about fall prevention and safety awareness. Handout issued, No. Patient educated about the following: AROM, Dexterity/coordination, Energy conservation, Positioning, Relaxation/breathing techniques, Role of OT, Safety awareness and Sternal precautions. Handout issued, Yes. -Maximal assist UB dressing -Maximal assist Grooming -Dependent LB dressing -Dependent in stand-pivot transfer simulation at recliner to hover over/sit down on bedpan RN placedin recliner -Dependent in toileting hygiene at bedpan RN placed in recliner Functional Motor Treatment Patient educated in edema management B hands, including BUE positioning and AROM/Opposition 10 repetitions each 3 times per day. Neuromuscular Re-Education Dependent x 3 in sit <-> stand transfers x 3 at recliner without AD Patient left sitting upright in bedside chair with call stevens in reach. Daughter present and Nursing present. A: Patient exhibited Fair participation in therapy and responded well to treatment this session. Patient is progressing toward goal(s) 1, 2, 3, 4, 5, 6 and 7. Pain and lethargy due to pain medication per RN remain(s) a limiting factor. Patient continues to present with Decreased independence with ADL, Decreased strength/endurance for functional activity and Impaired Cognition and will benefit from continued OT services to address above areas and improve functional status. P: Functional motor treatment, Patient/Caregivier Education, Equipment recommendations, Daily livingactivities, Therapeutic exercises and Neuromuscular Re-Education JOSEPH Reyes, MOT Pager: [phone] Total Timed Treatment Codes: 26 Min Total Treatment Time: 26 MinElectronically signed by Liana Luong OT at 4:45 PM LELOTCai, MD Chary - 01/14/2020 9:08 AM CDT [facility] Cardiology progress note Date of Service: 01/14/2020 Juan Diego Damon is a 74 years old male s/p CABG and AVR. Extubated. Feeling better. Being diuresed. On Dobutamine. PHYSICAL EXAM Vitals: 01/14/20 0320 01/14/20 0400 01/14/20 0500 01/14/20 0600 BP: 118/54 127/66 122/65 Pulse: 104 103 99 101 Resp: (!) 47 22 26 29 Temp: TempSrc: SpO2: 97% 97% 95% 96% Weight: Height: General: no apparent distress, obese HEENT: normocephalic atraumatic Neck: supple, no lymphadenopathy, no bruits, no JVD Lungs: clear to auscultation bilaterally Cardio: S1, S2, normal rate, regular; no murmurs, rubs or gallops Abdomen: non-distended : not examined Rectal: not examined Extremities: no clubbing, cyanosis, + mild edema Skin: no rashes Neuro: intubated Medications: I have reviewed the patient's medications; see Medication Reconciliation. Labs: I have reviewed the patient's labs. ASSESSMENT AND PLAN Principal Problem: CAD (coronary artery disease) Active Problems: S/P AVR S/P CABG (coronary artery bypass graft) Nonrheumatic aortic valve stenosis Dyslipidemia Essential hypertension Other emphysema Morbid obesity Acute on chronic diastolic congestive heart failure CAD--3v- CAD s/p CABG 01.11.2020. On ASA + Plavix/Coreg. Lipid panel--optimal LDL. TG elevated. Continue lipitor at 20 mg and change Lopid to fenofibrate. Keep K > 4 and Mag > 2. Inotropes management as per CTS recommendations. Aortic stenosis s/p AVR bioprosthetic 01.11.2020. On ASA. Dyslipidemia: as above. Acute on chronic HFpEF--Good response to IV lasix. Edema has improved. Diurese as tolerated. Chary Martinez MD, FAC, LUL[employer], Division of Cardiology [facility] Gerson James MD - 01/13/2020 12:57 PM CDT [facility] Progress Note Subjective: Patient seen & examined. Events reviewed. Objective: Vitals: 01/13/20 1000 01/13/20 1100 01/13/20 1101 01/13/20 1216 BP: Pulse: 95 97 97 100 Resp: 24 28 24 27 Temp: 37.2 C (99 F) 37.4 C (99.3 F) TempSrc: SpO2: 97% 98% 98% 100% Weight: Height: General: awake, alert, no distress HEENT: NC, AT, PERRLA, EOMI, MMM, anicteric sclera Neck: no JVD/lymphadenopathy CV: RRR, no murmurs, rubs, gallops Lungs: clear to auscultation bilaterally Abdomen: soft, NT, ND, (+)BS Skin: no rashes Extremities: no clubbing, cyanosis, edema Neuro: CN 2-12 intact, no focal deficits Psych: oriented x 3, normal affect Labs: Recent Results (from the past 48 hour(s)) aPTT Collection Time: 01/11/20 1:00 PM Result Value Ref Range APTT Patient 34 26 - 36 Seconds FIBRINOGEN Collection Time: 01/11/20 1:00 PM Result Value Ref Range Fibrinogen 224 167 - 453 mg/dL PROTHROMBIN TIME / INR Collection Time: 01/11/20 1:00 PM Result Value Ref Range PROTIME PATIENT 15.1 (H) 10.1 - 12.6 Seconds INR 1.4 HEMATOCRIT Collection Time: 01/11/20 1:12 PM Result Value Ref Range HCT 24.1 (L) 38.4 - 49.3 % HEMOGLOBIN Collection Time: 01/11/20 1:12 PM Result Value Ref Range HGB 8.1 (L) 12.2 - 16.4 g/dL PLATELET COUNT Collection Time: 01/11/20 1:12 PM Result Value Ref Range PLT 161 150 - 328 10*3/L ISTAT [facility] ARTERIAL Collection Time: 01/11/20 1:13 PM Result Value Ref Range PH 7.20 (L) 7.35 - 7.45 PCO2 7 (L) 35 - 45 mmHg PO2 205 (H) 80 - 100 mmHg BE -25.0 (L) -3.0 - 3.0 mEq/L HCO3 3 (L) 22 - 26 mEq/L %O2HB 100.0 (H) 95.0 - 98.0 % NA 160 (H) 135 - 145 mmol/L K+ <2.0 (LL) 3.5 - 5.0 mmol/L AC CA IONZ <1.00 (LL) 4.50 - 5.30 mg/dL GLUCOSE 24 (LL) 70 - 110 mg/dL AC Hematocrit 55 (H) 40 - 54 VOL % THB 18.7 (H) 13.5 - 18.0 g/dL AC TC02 <5 (L) 23-27 mmol/L mmol/L POCT ACT HIGH RANGE Collection Time: 01/11/20 1:14 PM Result Value Ref Range ACTHR 106 96 - 152 Seconds [facility] ARTERIAL Collection Time: 01/11/20 2:07 PM Result Value Ref Range PH 7.30 (L) 7.35 - 7.45 PCO2 51 (H) 35 - 45 mmHg PO2 243 (H) 80 - 100 mmHg BE -2.0 -3.0 - 3.0 mEq/L HCO3 25 22 - 26 mEq/L %O2HB 100.0 (H) 95.0 - 98.0 % NA 143 135 - 145 mmol/L K+ 4.3 3.5 - 5.0 mmol/L AC CA IONZ 4.00 (L) 4.50 - 5.30 mg/dL GLUCOSE 142 (H) 70 - 110 mg/dL AC Hematocrit 21 (LL) 40 - 54 VOL % THB 7.1 (LL) 13.5 - 18.0 g/dL AC TC02 26 23-27 mmol/L mmol/L [facility] ARTERIAL Collection Time: 01/11/20 2:43 PM Result Value Ref Range PH 7.31 (L) 7.35 - 7.45 PCO2 50 (H) 35 - 45 mmHg PO2 174 (H) 80 - 100 mmHg BE -2.0 -3.0 - 3.0 mEq/L HCO3 25 22 - 26 mEq/L %O2HB 99.0 (H) 95.0 - 98.0 % NA 142 135 - 145 mmol/L K+ 4.1 3.5 - 5.0 mmol/L AC CA IONZ 4.60 4.50 - 5.30 mg/dL GLUCOSE 124 (H) 70 - 110 mg/dL AC Hematocrit 18 (LL) 40 - 54 VOL % THB 6.1 (LL) 13.5 - 18.0 g/dL AC TC02 26 23-27 mmol/L mmol/L ABG+COOX+NA+K+GLU+CA2+ Collection Time: 01/11/20 3:22 PM Result Value Ref Range PH 7.23 (L) 7.35 - 7.45 PCO2 43 35 - 45 mmHg PO2 94 80 - 100 mmHg HCO3 18 (L) 22 - 26 mEq/L BE -9.4 (L) -3.0 - 3.0 mEq/L THB 10.7 (L) 13.5 - 18.0 g/dL %O2HB 94.8 94.0 - 99.0 % %COHB ART 0.7 0.0 - 1.5 % %METHB ART 0.1 (L) 0.4 - 1.5 % VOL%O2 ART 14.4 (L) 15.0 - 23.0 % NA 139 135 - 145 mmol/L K+ 4.8 3.5 - 5.0 mmol/L AC CA IONZ 4.40 (L) 4.50 - 5.30 mg/dL GLUCOSE 114 (H) 70 - 110 mg/dL CBC WITH DIFFERENTIAL Collection Time: 01/11/20 3:23 PM Result Value Ref Range WBC 14.96 (H) 4.20 - 10.70 10*3/L RBC 3.42 (L) 4.26 - 5.52 10*6/L HGB 10.3 (L) 12.2 - 16.4 g/dL HCT 31.0 (L) 38.4 - 49.3 % MCV 90.6 81.7 - 95.6 fL MCH 30.1 26.1 - 32.7 pg MCHC 33.2 31.2 - 35.0 g/dL RDW-SD 49.0 38.5 - 51.6 fL RDW-CV 14.9 12.1 - 15.4 % PLT 164 150 - 328 10*3/L MPV 9.5 (L) 9.8 - 13.0 fL NRBC/100 WBC 0.0 0.0 - 10.0 /100 WBCs NRBC x10^3 <0.01 10*3/L GRAN MAT (NEUT) % 76.3 % IMM GRAN % 1.80 % LYMPH % 8.0 % MONO % 13.5 % EOS % 0.2 % BASO % 0.2 % GRAN MAT x10^3(ANC) 11.42 (H) 1.99 - 6.95 10*3/uL IMM GRAN x10^3 0.27 (H) 0.00 - 0.06 10*3/uL LYMPH x10^3 1.19 1.09 - 3.23 10*3/uL MONO x10^3 2.02 (H) 0.36 - 1.02 10*3/uL EOS x10^3 0.03 (L) 0.06 - 0.53 10*3/uL BASO x10^3 0.03 0.01 - 0.09 10*3/uL BASO STIPPLING Present (A) BANDS Increased (A) TOXIC CHANGES Present (A) Basic Metabolic Panel (NA, K, CL, CO2, GLUCOSE, BUN, CREATININE, CA) Collection Time: 01/11/20 3:24 PM Result Value Ref Range NA 139 135 - 145 mmol/L K 4.8 3.5 - 5.0 mmol/L CL 109 (H) 98 - 108 mmol/L CO2 TOTAL 23 23 - 31 mmol/L AGAP 7 2 - 16 BUN 24 (H) 7 - 23 mg/dL GLUCOSE 128 (H) 70 - 110 mg/dL CREATININE 0.79 0.60 - 1.25 mg/dL CALCIUM 6.8 (L) 8.6 - 10.6 mg/dL eGFR Calculation (Non-) 96.1 mL/min/1.73m2 eGFR Calculation () 116.5 mL/min/1.73m2 MAGNESIUM Collection Time: 01/11/20 3:24 PM Result Value Ref Range MAGNESIUM 1.5 (L) 1.7 - 2.4 mg/dL PHOSPHORUS Collection Time: 01/11/20 3:24 PM Result Value Ref Range PHOSPHORUS 2.8 2.5 - 5.0 mg/dL PROTHROMBIN TIME / INR Collection Time: 01/11/20 3:24 PM Result Value Ref Range PROTIME PATIENT 14.7 (H) 10.1 - 12.6 Seconds INR 1.3 aPTT Collection Time: 01/11/20 3:24 PM Result Value Ref Range APTT Patient 38 (H) 26 - 36 Seconds MRSA / MSSA Screen by PCR, Nares Collection Time: 01/11/20 4:16 PM Result Value Ref Range MRSA Screen by PCR, Nares Positive (A) Negative MRSA/MSSA Positive? Yes (A) No ABG+COOX+NA+K+GLU+CA2+ Collection Time: 01/11/20 4:24 PM Result Value Ref Range PH 7.33 (L) 7.35 - 7.45 PCO2 50 (H) 35 - 45 mmHg PO2 85 80 - 100 mmHg HCO3 26 22 - 26 mEq/L BE -0.4 -3.0 - 3.0 mEq/L THB 11.1 (L) 13.5 - 18.0 g/dL %O2HB 94.9 94.0 - 99.0 % %COHB ART 1.0 0.0 - 1.5 % %METHB ART 0.3 (L) 0.4 - 1.5 % VOL%O2 ART 14.9 (L) 15.0 - 23.0 % NA 139 135 - 145 mmol/L K+ 4.3 3.5 - 5.0 mmol/L AC CA IONZ 5.30 4.50 - 5.30 mg/dL GLUCOSE 157 (H) 70 - 110 mg/dL POCT GLUCOSE (AUTOMATED) Collection Time: 01/11/20 4:31 PM Result Value Ref Range POCT GLU 159 (H) 70 - 110 mg/dL POCT GLUCOSE (AUTOMATED) Collection Time: 01/11/20 5:43 PM Result Value Ref Range POCT GLU 179 (H) 70 - 110 mg/dL ABG+COOX+NA+K+GLU+CA2+ Collection Time: 01/11/20 6:06 PM Result Value Ref Range PH 7.36 7.35 - 7.45 PCO2 45 35 - 45 mmHg PO2 83 80 - 100 mmHg HCO3 25 22 - 26 mEq/L BE -1.1 -3.0 - 3.0 mEq/L THB 11.1 (L) 13.5 - 18.0 g/dL %O2HB 94.8 94.0 - 99.0 % %COHB ART 0.8 0.0 - 1.5 % %METHB ART 0.2 (L) 0.4 - 1.5 % VOL%O2 ART 14.9 (L) 15.0 - 23.0 % NA 139 135 - 145 mmol/L K+ 4.3 3.5 - 5.0 mmol/L AC CA IONZ 5.00 4.50 - 5.30 mg/dL GLUCOSE 186 (H) 70 - 110 mg/dL POCT GLUCOSE (AUTOMATED) Collection Time: 01/11/20 6:25 PM Result Value Ref Range POCT GLU 195 (H) 70 - 110 mg/dL POCT GLUCOSE (AUTOMATED) Collection Time: 01/11/20 7:07 PM Result Value Ref Range POCT GLU 211 (H) 70 - 110 mg/dL AC PANEL 20 + LACTIC ACID Collection Time: 01/11/20 7:59 PM Result Value Ref Range PH 7.38 7.35 - 7.45 PCO2 40 35 - 45 mmHg PO2 90 80 - 100 mmHg HCO3 23 22 - 26 mEq/L BE -1.8 -3.0 - 3.0 mEq/L THB 10.5 (L) 13.5 - 18.0 g/dL %O2HB 95.7 94.0 - 99.0 % %COHB ART 0.7 0.0 - 1.5 % %METHB ART 0.2 (L) 0.4 - 1.5 % VOL%O2 ART 14.2 (L) 15.0 - 23.0 % NA 139 135 - 145 mmol/L K+ 4.5 3.5 - 5.0 mmol/L AC CA IONZ 4.80 4.50 - 5.30 mg/dL GLUCOSE 215 (H) 70 - 110 mg/dL LACTIC ACID 1.45 0.50 - 2.20 mmol/L BASIC METABOLIC PANEL (NA, K, CL, CO2, GLUCOSE, BUN, CREATININE, CA) Collection Time: 01/11/20 7:59 PM Result Value Ref Range NA 139 135 - 145 mmol/L K 4.5 3.5 - 5.0 mmol/L CL 107 98 - 108 mmol/L CO2 TOTAL 23 23 - 31 mmol/L AGAP 9 2 - 16 BUN 22 7 - 23 mg/dL GLUCOSE 201 (H) 70 - 110 mg/dL CREATININE 0.83 0.60 - 1.25 mg/dL CALCIUM 8.8 8.6 - 10.6 mg/dL eGFR Calculation (Non-) 90.8 mL/min/1.73m2 eGFR Calculation () 110.1 mL/min/1.73m2 MAGNESIUM Collection Time: 01/11/20 7:59 PM Result Value Ref Range MAGNESIUM 1.6 (L) 1.7 - 2.4 mg/dL CBC WITH DIFFERENTIAL Collection Time: 01/11/20 7:59 PM Result Value Ref Range WBC 12.61 (H) 4.20 - 10.70 10*3/L RBC 3.22 (L) 4.26 - 5.52 10*6/L HGB 10.1 (L) 12.2 - 16.4 g/dL HCT 29.4 (L) 38.4 - 49.3 % MCV 91.3 81.7 - 95.6 fL MCH 31.4 26.1 - 32.7 pg MCHC 34.4 31.2 - 35.0 g/dL RDW-SD 49.5 38.5 - 51.6 fL RDW-CV 15.2 12.1 - 15.4 % PLT 158 150 - 328 10*3/L MPV 9.5 (L) 9.8 - 13.0 fL NRBC/100 WBC 0.0 0.0 - 10.0 /100 WBCs NRBC x10^3 <0.01 10*3/L GRAN MAT (NEUT) % 87.4 % IMM GRAN % 0.70 % LYMPH % 4.0 % MONO % 7.7 % EOS % 0.0 % BASO % 0.2 % GRAN MAT x10^3(ANC) 11.02 (H) 1.99 - 6.95 10*3/uL IMM GRAN x10^3 0.09 (H) 0.00 - 0.06 10*3/uL LYMPH x10^3 0.50 (L) 1.09 - 3.23 10*3/uL MONO x10^3 0.97 0.36 - 1.02 10*3/uL EOS x10^3 <0.03 (L) 0.06 - 0.53 10*3/uL BASO x10^3 0.03 0.01 - 0.09 10*3/uL POCT GLUCOSE (AUTOMATED) Collection Time: 01/11/20 9:10 PM Result Value Ref Range POCT GLU 236 (H) 70 - 110 mg/dL POCT GLUCOSE (AUTOMATED) Collection Time: 01/11/20 10:02 PM Result Value Ref Range POCT GLU 227 (H) 70 - 110 mg/dL AC PANEL 20 + LACTIC ACID Collection Time: 01/11/20 10:19 PM Result Value Ref Range PH 7.40 7.35 - 7.45 PCO2 35 35 - 45 mmHg PO2 86 80 - 100 mmHg HCO3 21 (L) 22 - 26 mEq/L BE -2.8 -3.0 - 3.0 mEq/L THB 13.3 (L) 13.5 - 18.0 g/dL %O2HB 95.1 94.0 - 99.0 % %COHB ART 0.9 0.0 - 1.5 % %METHB ART 0.2 (L) 0.4 - 1.5 % VOL%O2 ART 17.8 15.0 - 23.0 % NA 138 135 - 145 mmol/L K+ 4.2 3.5 - 5.0 mmol/L AC CA IONZ 4.80 4.50 - 5.30 mg/dL GLUCOSE 216 (H) 70 - 110 mg/dL LACTIC ACID 1.98 0.50 - 2.20 mmol/L POCT GLUCOSE (AUTOMATED) Collection Time: 01/11/20 11:20 PM Result Value Ref Range POCT GLU 219 (H) 70 - 110 mg/dL AC PANEL 20 + LACTIC ACID Collection Time: 01/12/20 12:13 AM Result Value Ref Range PH 7.43 7.35 - 7.45 PCO2 30 (L) 35 - 45 mmHg PO2 74 (L) 80 - 100 mmHg HCO3 19 (L) 22 - 26 mEq/L BE -4.2 (L) -3.0 - 3.0 mEq/L THB 11.0 (L) 13.5 - 18.0 g/dL %O2HB 94.1 94.0 - 99.0 % %COHB ART 0.6 0.0 - 1.5 % %METHB ART 0.1 (L) 0.4 - 1.5 % VOL%O2 ART 14.6 (L) 15.0 - 23.0 % NA 138 135 - 145 mmol/L K+ 4.0 3.5 - 5.0 mmol/L AC CA IONZ 4.60 4.50 - 5.30 mg/dL GLUCOSE 182 (H) 70 - 110 mg/dL LACTIC ACID 2.44 0.50 - 2.20 mmol/L BASIC METABOLIC PANEL (NA, K, CL, CO2, GLUCOSE, BUN, CREATININE, CA) Collection Time: 01/12/20 12:14 AM Result Value Ref Range NA 140 135 - 145 mmol/L K 4.0 3.5 - 5.0 mmol/L CL 107 98 - 108 mmol/L CO2 TOTAL 22 (L) 23 - 31 mmol/L AGAP 11 2 - 16 BUN 22 7 - 23 mg/dL GLUCOSE 185 (H) 70 - 110 mg/dL CREATININE 0.89 0.60 - 1.25 mg/dL CALCIUM 8.7 8.6 - 10.6 mg/dL eGFR Calculation (Non-) 83.8 mL/min/1.73m2 eGFR Calculation () 101.6 mL/min/1.73m2 MAGNESIUM Collection Time: 01/12/20 12:14 AM Result Value Ref Range MAGNESIUM 1.9 1.7 - 2.4 mg/dL CBC WITH DIFFERENTIAL Collection Time: 01/12/20 12:14 AM Result Value Ref Range WBC 10.94 (H) 4.20 - 10.70 10*3/L RBC 3.26 (L) 4.26 - 5.52 10*6/L HGB 10.2 (L) 12.2 - 16.4 g/dL HCT 29.6 (L) 38.4 - 49.3 % MCV 90.8 81.7 - 95.6 fL MCH 31.3 26.1 - 32.7 pg MCHC 34.5 31.2 - 35.0 g/dL RDW-SD 50.3 38.5 - 51.6 fL RDW-CV 15.3 12.1 - 15.4 % PLT 162 150 - 328 10*3/L MPV 9.6 (L) 9.8 - 13.0 fL NRBC/100 WBC 0.0 0.0 - 10.0 /100 WBCs NRBC x10^3 <0.01 10*3/L GRAN MAT (NEUT) % 82.9 % IMM GRAN % 0.70 % LYMPH % 6.9 % MONO % 9.0 % EOS % 0.1 % BASO % 0.4 % GRAN MAT x10^3(ANC) 9.07 (H) 1.99 - 6.95 10*3/uL IMM GRAN x10^3 0.08 (H) 0.00 - 0.06 10*3/uL LYMPH x10^3 0.76 (L) 1.09 - 3.23 10*3/uL MONO x10^3 0.98 0.36 - 1.02 10*3/uL EOS x10^3 <0.03 (L) 0.06 - 0.53 10*3/uL BASO x10^3 0.04 0.01 - 0.09 10*3/uL POCT GLUCOSE (AUTOMATED) Collection Time: 01/12/20 2:05 AM Result Value Ref Range POCT GLU 184 (H) 70 - 110 mg/dL ABG+COOX+NA+K+GLU+CA2+ Collection Time: 01/12/20 4:05 AM Result Value Ref Range PH 7.40 7.35 - 7.45 PCO2 39 35 - 45 mmHg PO2 72 (L) 80 - 100 mmHg HCO3 24 22 - 26 mEq/L BE -1.0 -3.0 - 3.0 mEq/L THB 16.9 13.5 - 18.0 g/dL %O2HB 93.9 (L) 94.0 - 99.0 % %COHB ART 1.2 0.0 - 1.5 % %METHB ART 0.2 (L) 0.4 - 1.5 % VOL%O2 ART 22.3 15.0 - 23.0 % NA 141 135 - 145 mmol/L K+ 4.0 3.5 - 5.0 mmol/L AC CA IONZ 4.80 4.50 - 5.30 mg/dL GLUCOSE 172 (H) 70 - 110 mg/dL Basic Metabolic Panel (NA, K, CL, CO2, GLUCOSE, BUN, CREATININE, CA) Collection Time: 01/12/20 4:05 AM Result Value Ref Range NA 140 135 - 145 mmol/L K 4.0 3.5 - 5.0 mmol/L CL 106 98 - 108 mmol/L CO2 TOTAL 25 23 - 31 mmol/L AGAP 9 2 - 16 BUN 22 7 - 23 mg/dL GLUCOSE 162 (H) 70 - 110 mg/dL CREATININE 0.86 0.60 - 1.25 mg/dL CALCIUM 8.0 (L) 8.6 - 10.6 mg/dL eGFR Calculation (Non-) 87.2 mL/min/1.73m2 eGFR Calculation () 105.7 mL/min/1.73m2 CBC WITH DIFFERENTIAL Collection Time: 01/12/20 4:05 AM Result Value Ref Range WBC 9.71 4.20 - 10.70 10*3/L RBC 3.04 (L) 4.26 - 5.52 10*6/L HGB 9.5 (L) 12.2 - 16.4 g/dL HCT 27.6 (L) 38.4 - 49.3 % MCV 90.8 81.7 - 95.6 fL MCH 31.3 26.1 - 32.7 pg MCHC 34.4 31.2 - 35.0 g/dL RDW-SD 50.4 38.5 - 51.6 fL RDW-CV 15.6 (H) 12.1 - 15.4 % PLT 141 (L) 150 - 328 10*3/L MPV 9.4 (L) 9.8 - 13.0 fL NRBC/100 WBC 0.0 0.0 - 10.0 /100 WBCs NRBC x10^3 <0.01 10*3/L GRAN MAT (NEUT) % 78.0 % IMM GRAN % 0.60 % LYMPH % 10.0 % MONO % 11.0 % EOS % 0.1 % BASO % 0.3 % GRAN MAT x10^3(ANC) 7.57 (H) 1.99 - 6.95 10*3/uL IMM GRAN x10^3 0.06 0.00 - 0.06 10*3/uL LYMPH x10^3 0.97 (L) 1.09 - 3.23 10*3/uL MONO x10^3 1.07 (H) 0.36 - 1.02 10*3/uL EOS x10^3 <0.03 (L) 0.06 - 0.53 10*3/uL BASO x10^3 0.03 0.01 - 0.09 10*3/uL AC PANEL 21 + LACTIC ACID Collection Time: 01/12/20 4:05 AM Result Value Ref Range PH 7.40 7.32 - 7.42 PCO2 EMELY 42 41 - 51 mmHg PO2 EMELY 29 25 - 40 mmHg HCO3 EMELY 25 24 - 28 mEq/L AC VBE(BEAKER) -0.1 mEq/L THB EMELY 9.9 (L) 13.5 - 18.0 g/dL %O2HB EMELY 58.5 52.0 - 63.0 % %COHB EMELY 0.6 0.0 - 1.5 % %METHB EMELY 0.0 (L) 0.4 - 1.5 % VOL%O2 EMELY 8.1 6.0 - 12.0 % NA 142 135 - 145 mmol/L K+ 4.0 3.5 - 5.0 mmol/L AC CA IONZ 4.60 4.50 - 5.30 mg/dL GLUCOSE 170 (H) 70 - 110 mg/dL LACTIC ACID 2.20 0.50 - 2.20 mmol/L MAGNESIUM Collection Time: 01/12/20 4:05 AM Result Value Ref Range MAGNESIUM 2.3 1.7 - 2.4 mg/dL POCT GLUCOSE (AUTOMATED) Collection Time: 01/12/20 4:11 AM Result Value Ref Range POCT GLU 170 (H) 70 - 110 mg/dL POCT GLUCOSE (AUTOMATED) Collection Time: 01/12/20 6:00 AM Result Value Ref Range POCT GLU 186 (H) 70 - 110 mg/dL ABG+COOX+NA+K+GLU+CA2+ Collection Time: 01/12/20 7:19 AM Result Value Ref Range PH 7.45 7.35 - 7.45 PCO2 31 (L) 35 - 45 mmHg PO2 72 (L) 80 - 100 mmHg HCO3 21 (L) 22 - 26 mEq/L BE -2.3 -3.0 - 3.0 mEq/L THB 10.0 (L) 13.5 - 18.0 g/dL %O2HB 93.8 (L) 94.0 - 99.0 % %COHB ART 0.3 0.0 - 1.5 % %METHB ART 0.0 (L) 0.4 - 1.5 % VOL%O2 ART 13.3 (L) 15.0 - 23.0 % NA 140 135 - 145 mmol/L K+ 4.1 3.5 - 5.0 mmol/L AC CA IONZ 4.50 4.50 - 5.30 mg/dL GLUCOSE 152 (H) 70 - 110 mg/dL POCT GLUCOSE (AUTOMATED) Collection Time: 01/12/20 7:50 AM Result Value Ref Range POCT GLU 170 (H) 70 - 110 mg/dL BASIC METABOLIC PANEL (NA, K, CL, CO2, GLUCOSE, BUN, CREATININE, CA) Collection Time: 01/12/20 8:18 AM Result Value Ref Range NA 141 135 - 145 mmol/L K 4.0 3.5 - 5.0 mmol/L CL 107 98 - 108 mmol/L CO2 TOTAL 28 23 - 31 mmol/L AGAP 6 2 - 16 BUN 20 7 - 23 mg/dL GLUCOSE 156 (H) 70 - 110 mg/dL CREATININE 0.85 0.60 - 1.25 mg/dL CALCIUM 8.3 (L) 8.6 - 10.6 mg/dL eGFR Calculation (Non-) 88.4 mL/min/1.73m2 eGFR Calculation () 107.1 mL/min/1.73m2 MAGNESIUM Collection Time: 01/12/20 8:18 AM Result Value Ref Range MAGNESIUM 2.1 1.7 - 2.4 mg/dL PHOSPHORUS Collection Time: 01/12/20 8:18 AM Result Value Ref Range PHOSPHORUS 3.1 2.5 - 5.0 mg/dL PROFILE / HEMOGRAM Collection Time: 01/12/20 8:18 AM Result Value Ref Range WBC 9.64 4.20 - 10.70 10*3/L RBC 3.04 (L) 4.26 - 5.52 10*6/L HGB 9.5 (L) 12.2 - 16.4 g/dL HCT 28.1 (L) 38.4 - 49.3 % MCH 31.3 26.1 - 32.7 pg MCV 92.4 81.7 - 95.6 fL MCHC 33.8 31.2 - 35.0 g/dL PLT 125 (L) 150 - 328 10*3/L MPV 9.4 (L) 9.8 - 13.0 fL RDW-CV 15.7 (H) 12.1 - 15.4 % RDW-SD 52.5 (H) 38.5 - 51.6 fL NRBC x10^3 <0.01 10*3/L NRBC/100 WBC 0.0 0.0 - 10.0 /100 WBCs IPF % ABG+COOX+NA+K+GLU+CA2+ Collection Time: 01/12/20 8:56 AM Result Value Ref Range PH 7.44 7.35 - 7.45 PCO2 37 35 - 45 mmHg PO2 69 (L) 80 - 100 mmHg HCO3 24 22 - 26 mEq/L BE 0.2 -3.0 - 3.0 mEq/L THB 10.1 (L) 13.5 - 18.0 g/dL %O2HB 93.6 (L) 94.0 - 99.0 % %COHB ART 0.3 0.0 - 1.5 % %METHB ART 0.0 (L) 0.4 - 1.5 % VOL%O2 ART 13.4 (L) 15.0 - 23.0 % NA 140 135 - 145 mmol/L K+ 4.0 3.5 - 5.0 mmol/L AC CA IONZ 4.40 (L) 4.50 - 5.30 mg/dL GLUCOSE 160 (H) 70 - 110 mg/dL POCT GLUCOSE (AUTOMATED) Collection Time: 01/12/20 10:01 AM Result Value Ref Range POCT GLU 167 (H) 70 - 110 mg/dL ABG+COOX+NA+K+GLU+CA2+ Collection Time: 01/12/20 11:32 AM Result Value Ref Range PH 7.46 (H) 7.35 - 7.45 PCO2 35 35 - 45 mmHg PO2 63 (L) 80 - 100 mmHg HCO3 24 22 - 26 mEq/L BE 0.3 -3.0 - 3.0 mEq/L THB 9.8 (L) 13.5 - 18.0 g/dL %O2HB 92.4 (L) 94.0 - 99.0 % %COHB ART 0.3 0.0 - 1.5 % %METHB ART 0.3 (L) 0.4 - 1.5 % VOL%O2 ART 12.8 (L) 15.0 - 23.0 % NA 139 135 - 145 mmol/L K+ 3.9 3.5 - 5.0 mmol/L AC CA IONZ 4.40 (L) 4.50 - 5.30 mg/dL GLUCOSE 154 (H) 70 - 110 mg/dL POCT GLUCOSE (AUTOMATED) Collection Time: 01/12/20 12:06 PM Result Value Ref Range POCT GLU 156 (H) 70 - 110 mg/dL PHOSPHORUS Collection Time: 01/12/20 12:15 PM Result Value Ref Range PHOSPHORUS 3.0 2.5 - 5.0 mg/dL POTASSIUM SERUM Collection Time: 01/12/20 12:15 PM Result Value Ref Range K 3.8 3.5 - 5.0 mmol/L MAGNESIUM Collection Time: 01/12/20 12:15 PM Result Value Ref Range MAGNESIUM 2.6 (H) 1.7 - 2.4 mg/dL POCT GLUCOSE (AUTOMATED) Collection Time: 01/12/20 2:02 PM Result Value Ref Range POCT GLU 141 (H) 70 - 110 mg/dL POTASSIUM SERUM Collection Time: 01/12/20 3:48 PM Result Value Ref Range K 3.9 3.5 - 5.0 mmol/L MAGNESIUM Collection Time: 01/12/20 3:48 PM Result Value Ref Range MAGNESIUM 2.4 1.7 - 2.4 mg/dL PHOSPHORUS Collection Time: 01/12/20 3:48 PM Result Value Ref Range PHOSPHORUS 2.9 2.5 - 5.0 mg/dL POCT GLUCOSE (AUTOMATED) Collection Time: 01/12/20 3:56 PM Result Value Ref Range POCT GLU 141 (H) 70 - 110 mg/dL POCT GLUCOSE (AUTOMATED) Collection Time: 01/12/20 5:57 PM Result Value Ref Range POCT GLU 154 (H) 70 - 110 mg/dL AC PANEL 20 + LACTIC ACID Collection Time: 01/12/20 7:59 PM Result Value Ref Range PH 7.47 (H) 7.35 - 7.45 PCO2 26 (L) 35 - 45 mmHg PO2 78 (L) 80 - 100 mmHg HCO3 19 (L) 22 - 26 mEq/L BE -3.9 (L) -3.0 - 3.0 mEq/L THB 9.9 (L) 13.5 - 18.0 g/dL %O2HB 94.5 94.0 - 99.0 % %COHB ART 0.3 0.0 - 1.5 % %METHB ART 0.3 (L) 0.4 - 1.5 % VOL%O2 ART 13.2 (L) 15.0 - 23.0 % NA 139 135 - 145 mmol/L K+ 4.2 3.5 - 5.0 mmol/L AC CA IONZ 4.50 4.50 - 5.30 mg/dL GLUCOSE 142 (H) 70 - 110 mg/dL LACTIC ACID 1.09 0.50 - 2.20 mmol/L BASIC METABOLIC PANEL (NA, K, CL, CO2, GLUCOSE, BUN, CREATININE, CA) Collection Time: 01/12/20 7:59 PM Result Value Ref Range NA 139 135 - 145 mmol/L K 4.2 3.5 - 5.0 mmol/L CL 106 98 - 108 mmol/L CO2 TOTAL 25 23 - 31 mmol/L AGAP 8 2 - 16 BUN 18 7 - 23 mg/dL GLUCOSE 151 (H) 70 - 110 mg/dL CREATININE 0.87 0.60 - 1.25 mg/dL CALCIUM 7.5 (L) 8.6 - 10.6 mg/dL eGFR Calculation (Non-) 86.0 mL/min/1.73m2 eGFR Calculation () 104.3 mL/min/1.73m2 MAGNESIUM Collection Time: 01/12/20 7:59 PM Result Value Ref Range MAGNESIUM 2.2 1.7 - 2.4 mg/dL ABG+COOX+NA+K+GLU+CA2+ Collection Time: 01/12/20 10:02 PM Result Value Ref Range PH 7.47 (H) 7.35 - 7.45 PCO2 34 (L) 35 - 45 mmHg PO2 77 (L) 80 - 100 mmHg HCO3 24 22 - 26 mEq/L BE 0.8 -3.0 - 3.0 mEq/L THB 10.7 (L) 13.5 - 18.0 g/dL %O2HB 95.3 94.0 - 99.0 % %COHB ART 0.2 0.0 - 1.5 % %METHB ART 0.1 (L) 0.4 - 1.5 % VOL%O2 ART 14.4 (L) 15.0 - 23.0 % NA 139 135 - 145 mmol/L K+ 4.0 3.5 - 5.0 mmol/L AC CA IONZ 4.20 (L) 4.50 - 5.30 mg/dL GLUCOSE 170 (H) 70 - 110 mg/dL POCT GLUCOSE (AUTOMATED) Collection Time: 03/12/20 12:15 AM Result Value Ref Range POCT GLU 181 (H) 70 - 110 mg/dL POCT GLUCOSE (AUTOMATED) Collection Time: 01/13/20 2:39 AM Result Value Ref Range POCT GLU 180 (H) 70 - 110 mg/dL AC PANEL 20 + LACTIC ACID Collection Time: 01/13/20 3:05 AM Result Value Ref Range PH 7.48 (H) 7.35 - 7.45 PCO2 36 35 - 45 mmHg PO2 84 80 - 100 mmHg HCO3 26 22 - 26 mEq/L BE 2.2 -3.0 - 3.0 mEq/L THB 10.5 (L) 13.5 - 18.0 g/dL %O2HB 95.5 94.0 - 99.0 % %COHB ART 0.3 0.0 - 1.5 % %METHB ART 0.3 (L) 0.4 - 1.5 % VOL%O2 ART 14.2 (L) 15.0 - 23.0 % NA 139 135 - 145 mmol/L K+ 3.9 3.5 - 5.0 mmol/L AC CA IONZ 4.30 (L) 4.50 - 5.30 mg/dL GLUCOSE 171 (H) 70 - 110 mg/dL LACTIC ACID 1.49 0.50 - 2.20 mmol/L BASIC METABOLIC PANEL (NA, K, CL, CO2, GLUCOSE, BUN, CREATININE, CA) Collection Time: 01/13/20 3:05 AM Result Value Ref Range NA 139 135 - 145 mmol/L K 3.9 3.5 - 5.0 mmol/L CL 106 98 - 108 mmol/L CO2 TOTAL 27 23 - 31 mmol/L AGAP 6 2 - 16 BUN 19 7 - 23 mg/dL GLUCOSE 164 (H) 70 - 110 mg/dL CREATININE 0.86 0.60 - 1.25 mg/dL CALCIUM 7.3 (L) 8.6 - 10.6 mg/dL eGFR Calculation (Non-) 87.2 mL/min/1.73m2 eGFR Calculation () 105.7 mL/min/1.73m2 MAGNESIUM Collection Time: 01/13/20 3:05 AM Result Value Ref Range MAGNESIUM 2.4 1.7 - 2.4 mg/dL CBC WITH DIFFERENTIAL Collection Time: 01/13/20 3:05 AM Result Value Ref Range WBC 9.19 4.20 - 10.70 10*3/L RBC 2.72 (L) 4.26 - 5.52 10*6/L HGB 8.4 (L) 12.2 - 16.4 g/dL HCT 25.4 (L) 38.4 - 49.3 % MCV 93.4 81.7 - 95.6 fL MCH 30.9 26.1 - 32.7 pg MCHC 33.1 31.2 - 35.0 g/dL RDW-SD 53.1 (H) 38.5 - 51.6 fL RDW-CV 15.8 (H) 12.1 - 15.4 % PLT 106 (L) 150 - 328 10*3/L MPV 9.9 9.8 - 13.0 fL NRBC/100 WBC 0.0 0.0 - 10.0 /100 WBCs NRBC x10^3 <0.01 10*3/L GRAN MAT (NEUT) % 79.6 % IMM GRAN % 0.50 % LYMPH % 9.9 % MONO % 9.2 % EOS % 0.5 % BASO % 0.3 % GRAN MAT x10^3(ANC) 7.30 (H) 1.99 - 6.95 10*3/uL IMM GRAN x10^3 0.05 0.00 - 0.06 10*3/uL LYMPH x10^3 0.91 (L) 1.09 - 3.23 10*3/uL MONO x10^3 0.85 0.36 - 1.02 10*3/uL EOS x10^3 0.05 (L) 0.06 - 0.53 10*3/uL BASO x10^3 0.03 0.01 - 0.09 10*3/uL LIPID PANEL (64988)(TOTAL CHOLESTEROL, TRIGLYCERIDES, HDL) Collection Time: 01/13/20 3:05 AM Result Value Ref Range CHOL 60 (L) 120 - 200 mg/dL HDL 16 (L) >40 mg/dL HDLC RATIO 3.8 <=5.0 TRIG 328 (H) 30 - 170 mg/dL LDL CHOL -22 <=160 mg/dL VLDL 66 (H) 5 - 60 mg/dL AC PANEL 21 + LACTIC ACID Collection Time: 01/13/20 3:23 AM Result Value Ref Range PH 7.43 (H) 7.32 - 7.42 PCO2 EMELY 38 (L) 41 - 51 mmHg PO2 EMELY 29 25 - 40 mmHg HCO3 EMELY 25 24 - 28 mEq/L AC VBE(BEAKER) 0.6 mEq/L THB EMELY 10.8 (L) 13.5 - 18.0 g/dL %O2HB EMELY 54.6 52.0 - 63.0 % %COHB EMELY 0.7 0.0 - 1.5 % %METHB EMELY 0.3 (L) 0.4 - 1.5 % VOL%O2 EMELY 8.3 6.0 - 12.0 % NA 139 135 - 145 mmol/L K+ 3.9 3.5 - 5.0 mmol/L AC CA IONZ 4.40 (L) 4.50 - 5.30 mg/dL GLUCOSE 166 (H) 70 - 110 mg/dL LACTIC ACID 1.21 0.50 - 2.20 mmol/L ABG+COOX+NA+K+GLU+CA2+ Collection Time: 01/13/20 5:21 AM Result Value Ref Range PH 7.45 7.35 - 7.45 PCO2 36 35 - 45 mmHg PO2 76 (L) 80 - 100 mmHg HCO3 24 22 - 26 mEq/L BE 0.4 -3.0 - 3.0 mEq/L THB 9.2 (L) 13.5 - 18.0 g/dL %O2HB 94.8 94.0 - 99.0 % %COHB ART 0.3 0.0 - 1.5 % %METHB ART 0.0 (L) 0.4 - 1.5 % VOL%O2 ART 12.4 (L) 15.0 - 23.0 % NA 137 135 - 145 mmol/L K+ 4.0 3.5 - 5.0 mmol/L AC CA IONZ 4.30 (L) 4.50 - 5.30 mg/dL GLUCOSE 190 (H) 70 - 110 mg/dL POCT GLUCOSE (AUTOMATED) Collection Time: 01/13/20 6:51 AM Result Value Ref Range POCT GLU 187 (H) 70 - 110 mg/dL POTASSIUM SERUM Collection Time: 01/13/20 9:42 AM Result Value Ref Range K 4.0 3.5 - 5.0 mmol/L PHOSPHORUS Collection Time: 01/13/20 9:42 AM Result Value Ref Range PHOSPHORUS 1.8 (L) 2.5 - 5.0 mg/dL MAGNESIUM Collection Time: 01/13/20 9:42 AM Result Value Ref Range MAGNESIUM 2.5 (H) 1.7 - 2.4 mg/dL ABG+COOX+NA+K+GLU+CA2+ Collection Time: 01/13/20 11:57 AM Result Value Ref Range PH 7.46 (H) 7.35 - 7.45 PCO2 34 (L) 35 - 45 mmHg PO2 84 80 - 100 mmHg HCO3 24 22 - 26 mEq/L BE 0.3 -3.0 - 3.0 mEq/L THB 9.2 (L) 13.5 - 18.0 g/dL %O2HB 95.9 94.0 - 99.0 % %COHB ART 0.0 0.0 - 1.5 % %METHB ART 0.3 (L) 0.4 - 1.5 % VOL%O2 ART 12.5 (L) 15.0 - 23.0 % NA 138 135 - 145 mmol/L K+ 3.9 3.5 - 5.0 mmol/L AC CA IONZ 4.30 (L) 4.50 - 5.30 mg/dL GLUCOSE 140 (H) 70 - 110 mg/dL Current Facility-Administered Medications: sodium phosphate 15 mmol in NaCl 0.9% (NS) 250 mL piggyback, 15 mmol, IV Piggyback, ONCE, Syeda Morse MD, 15 mmol at 01/13/20 1041 aspirin chewable tablet 81 mg, 81 mg, Oral, DAILY, Isidro Pulido MD, 81 mg at 01/13/20 0733 docusate (COLACE) 50 mg/5 mL solution 100 mg, 100 mg, Enteral, DAILY, Syeda Morse MD, 100 mg at 01/13/20 0733 epoprostenol (FLOLAN) 500 mcg in sterile diluent 50 mL nebulizer solution, 5 ng/kg/min, Inhalation, CONTINUOUS, Isidro Pulido MD, Stopped at 01/12/20 1358 HYDROcodone-acetaminophen (NORCO 5) 5-325 mg tablet 1 tablet, 1 tablet, Oral, Q6HPRN, Syeda Morse MD, 1 tablet at 01/13/20 0734 propofol IV infusion, 5-75 mcg/kg/min, IV Infusion, TITRATE, Syeda Morse MD, Stopped at 01/13/20 0825 acetaminophen (TYLENOL) suppository 650 mg, 650 mg, Rectal, Q6HPRN, Syeda Morse MD acetaminophen (TYLENOL) tablet 650 mg, 650 mg, Oral, Q6HPGisselN, Syeda Morse MD cardioplegic (PLEGISOL) perfusion solution, , , PRN, Isidro Pulido MD, 1, 000 mL at 01/11/20 0811 clopidogreL (PLAVIX) tablet 75 mg, 75 mg, Oral, DAILY, Syeda Morse MD, 75 mg at 01/12/200733 D5W-LR IV infusion 1,000 mL, 1,000 mL, IV Infusion, CONTINUOUS, Syeda Morse MD, Stopped at 01/11/20 1828 dextrose 50 % in water (D50W) injection 25 mL, 25 mL, Slow IV Push, PRN, Syeda Morse MD DOBUTamine (DOBUTREX) 500 mg in 250 mL (Fixed Dose) D5W infusion RTU, 2.5- 20 mcg/kg/min, IV Infusion, TITRATE, Syeda Morse MD, Last Rate: 8.38 mL/ hr at 01/13/20 1219, 2.5 mcg/kg/min at 01/13/20 1219 EPINEPHrine HCl in 0.9 % NaCl 4 mg/250 mL (16 mcg/mL) infusion RTU, 0.01- 0.7 mcg/kg/min, IV Infusion, TITRJOSÉ MIGUEL, Syeda Morse MD, Stopped at 0530 furosemide (LASIX) injection 20 mg, 20 mg, IV Push, PRN, Syeda Morse MD gentamicin 40 mg/mL 80 mg, vancomycin (VANCOCIN) 1,000 mg in NaCl 0.9% (NS ) 1,000 mL OR irrigation, , , PRN, Isidro Pulido MD, 1,000 mL at 01/11/20 0810 glucagon (GLUCAGEN DIAGNOSTIC KIT) injection 1 mg, 1 mg, Intramuscular, PRN , Syeda Morse MD heparin (porcine) injection 5,000 Units, 5,000 Units, Subcutaneous, Q12H, Syeda Morse MD, 5,000 Units at 01/13/20 0733 heparin 1,000 unit/mL 30,000 Units in NaCl 0.9% (NS) 1,000 mL OR irrigation , , , PRN, Isidro Pulido MD, 1,000 mL at 01/11/20 0757 heparin 1,000 unit/mL 5,000 Units in NaCl 0.9% (NS) 500 mL OR irrigation, , , PRN, Isidro Pulido MD, 500 mL at 01/11/20 0810 insulin regular human (HUMULIN R) 100 Units in NaCl 0.9% (NS) 100 mL infusion, 2 Units/hr, IV Infusion, TITRATE, Syeda Morse MD, Last Rate: 3 mL/hr at 01/13/20 1218, 3 Units/hr at 01/13/20 1218 milrinone in D5W (PRIMACOR) 40 mg/200 mL infusion RTU, 0.125-0.75 mcg/kg/ min, IV Infusion, TITRATE, Isidro Pulido MD, Stopped at 01/12/20 0424 NaCl 0.9% (NS) bolus infusion 250 mL, 250 mL, IV Infusion, PRN - SEE INSTRUCTIONS, Syeda Morse MD NORepinephrine 4 mg in D5W 250 mL infusion RTU, 0.05-3 mcg/kg/min, IV Infusion, TITRATE, Syeda Morse MD, Stopped at 01/12/20 0541 ondansetron (ZOFRAN (PF)) injection 4 mg, 4 mg, Slow IV Push, Q6HPRN, Syeda Morse MD papaverine 60 mg in NaCl 0.9% (NS) 60 mL OR irrigation, , , PRN, Isidro Pulido MD, 60 mL at 01/11/20 0809 sennosides (SENOKOT) tablet 8.6 mg, 8.6 mg, Oral, DAILY, Syeda Morse MD, 8.6 mg at 01/13/20 0734 acetaminophen (TYLENOL) tablet 650 mg, 650 mg, Oral, Q6HPRN, Ezzo, Ali, MD atorvastatin (LIPITOR) tablet 20 mg, 20 mg, Oral, QHS, Rivera Fernández MD, 20 mg at 01/12/202022 carvediloL (COREG) tablet 6.25 mg, 6.25 mg, Oral, BID MEALS, Rivera Fernández MD , Stopped at chlorhexidine (KIKI-HEX) 4 % liquid, , Topical, PRE-PROCEDURE ONCE, Isidro Pulido MD finasteride (PROSCAR) tablet 5 mg, 5 mg, Oral, DAILY, Rivera Fernández MD, Stopped at 01/12/20 0900 gemfibrozil (LOPID) tablet 600 mg, 600 mg, Oral, BIDAC, Rivera Fernández MD, 600 mg at 01/13/20 0734 omeprazole (PRILOSEC) capsule 20 mg, 20 mg, Oral, DAILY, Rivera Fernández MD, 20 mg at 01/13/20 0734 Sliding Scale Insulin-Regular + Fsbg Testing, , Subcutaneous, AC+HS, Rivera Fernández MD, Stopped at 01/11/20 2100 tamsulosin (FLOMAX) capsule 0.4 mg, 0.4 mg, Oral, BID, Rivera Fernández MD, 0.4 mg at 01/13/20 0734 Assessment: Juan Diego Damon is a 74 year old male admitted with: Coronary artery disease - S/P CABG Hypertension Hyperlipidemia Diabetes mellitus BPH GERD Plan: Postoperative care status post CABG Milrinone, Propofol, Epinephrine, Levophed drips IV fluids Resume home medications CT surgery following Blood pressure support as needed Follow chest tube drainage output ICU monitoring, follow blood pressure trend closely Following labs, electrolytes Follow Hgb trend, assess for postoperative bleeding DVT prophylaxis, Lovenox Beta deyvi Antihyperlipidemic Sliding scale insulin, follow blood sugar trend, adjust medications as needed 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 Estes was present during patient encounter, examined patient at bedside , all questions answered Plan discussed with patient 01/12/2020 Currently still intubated and sedated Discussed with pulmonary and cardiothoracic surgery today Will attempt to wean off of ventilator support today Drains still in place Monitoring drain output Following blood sugar closely Sliding scale as needed We'll hold patient's medications orally for now Increase activity once extubated Further recommendations will be based on this patient's clinical course 01/13/2020 Currently still intubated and sedated Yesterday SBT attempted but failed, off epi drip and off flolan now. Will attempt to wean off of ventilator support today Drains still in place Monitoring drain output Following blood sugar closely Sliding scale as needed Hold patient's medications orally for now Acute blood loss anemia intra op s/p 2 U PRBC with appropriate response. On DAPT therapy. Increase activity once extubated Further recommendations will be based on this patient's clinical course Gerson Thomas MD TCai, MD Chary - 01/13/2020 9:45 AM CDT [facility] Cardiology progress note Date of Service: 01/13/2020 Juan Diego Damon is a 74 years old male s/p CABG and AVR. Remains intubated. On Dobutamine. PHYSICAL EXAM Vitals: 01/13/20 0600 01/13/20 0615 01/13/20 0800 01/13/20 0900 BP: Pulse: 94 94 95 96 Resp: 27 26 25 25 Temp: 37.4 C (99.3 F) 37.4 C (99.3 F) 37.2 C (99 F) TempSrc: Core Core SpO2: 94% 97% 97% 97% Weight: Height: Date 01/13/20 0700 - 01/14/20 0659 Shift 2881-0651 3738-2541 5707-9319 24 Hour Total INTAKE Shift Total OUTPUT Urine(mL/kg/hr) 250 250 Chest Tube 20 Shift Total 270 270 Weight (kg) 128.5 128.5 128.5 128.5 General: intubated; no apparent distress, obese HEENT: normocephalic atraumatic Neck: supple, no lymphadenopathy, no bruits, no JVD Lungs: clear to auscultation bilaterally Cardio: S1, S2, normal rate, regular; no murmurs, rubs or gallops Abdomen: non-distended : not examined Rectal: not examined Extremities: no clubbing, cyanosis, + mild edema Skin: no rashes Neuro: intubated Medications: I have reviewed the patient's medications; see Medication Reconciliation. Labs: I have reviewed the patient's labs. ASSESSMENT AND PLAN Principal Problem: CAD (coronary artery disease) Active Problems: S/P AVR S/P CABG (coronary artery bypass graft) Nonrheumatic aortic valve stenosis Dyslipidemia Essential hypertension Other emphysema Morbid obesity CAD--3v- CAD s/p CABG 01.11.2020. On ASA + Plavix/Coreg. Will check lipid panel. Consider to increase lipitor to 40 mg and change Lopid to fenofibrate. Keep K > 4 and Mag > 2. Inotropes management as per CTS recommendations. Aortic stenosis s/p AVR bioprosthetic 01.11.2020. On ASA. Dyslipidemia: as above. Chary Martinez MD, FACC, [employer], Division of Cardiology [facility] Syeda Valadez MD - 01/13/2020 8:48 AM CDT Critical Care Medicine Progress Note Date of Service: 01/13/2020 ICU Day:3 Intubation Day:3 Last 24 hour events (major events): Yesterday SBT attempted but failed, off epi drip and off flolan now. Subjective: Unobtainable Lines (with dates):PIV, Right IJ PAC, Chest tube x3, radial arterial line, ETT Live:Yes Intake/Output: Intake/Output Summary (Last 24 hours) at 01/13/2020 0849 Last data filed at 01/13/2020 0800 Gross per 24 hour Intake 2709.6 ml Output 2009 ml Net 699.6 ml Physical Exam: Temp: [36.7 C (98.1 F)-38.1 C (100.6 F)] Heart Rate (monitor): [91-98] Pulse: [91-98] Resp: [20-30] BP: (98-127)/(43-58) Arterial Line BP: (107-148)/(42-54) MAP (mmHg): [60-87] MAP: [64 mmHg-85 mmHg] General: well developed, well nourished, intubated, intubated and sedated, obese , following some commands HEENT: normocephalic atraumatic, pupils equal, round, reactive to light Neck: full range of motion Lungs: clear to auscultation bilaterally Cardio: S1, S2 normal; no murmurs, rubs or gallops, regular rate and rhythm Abdomen: soft; non-tender; non-distended; normoactive bowel sounds : not examined Rectal: not examined Extremities: no clubbing, cyanosis, or edema Skin: no rashes Neuro: sedated Labs (pertinent only)/Imaging: Recent Results (from the past 24 hour(s)) ABG+COOX+NA+K+GLU+CA2+ Collection Time: 01/12/20 8:56 AM Result Value Ref Range PH 7.44 7.35 - 7.45 PCO2 37 35 - 45 mmHg PO2 69 (L) 80 - 100 mmHg HCO3 24 22 - 26 mEq/L BE 0.2 -3.0 - 3.0 mEq/L THB 10.1 (L) 13.5 - 18.0 g/dL %O2HB 93.6 (L) 94.0 - 99.0 % %COHB ART 0.3 0.0 - 1.5 % %METHB ART 0.0 (L) 0.4 - 1.5 % VOL%O2 ART 13.4 (L) 15.0 - 23.0 % NA 140 135 - 145 mmol/L K+ 4.0 3.5 - 5.0 mmol/L AC CA IONZ 4.40 (L) 4.50 - 5.30 mg/dL GLUCOSE 160 (H) 70 - 110 mg/dL POCT GLUCOSE (AUTOMATED) Collection Time: 01/12/20 10:01 AM Result Value Ref Range POCT GLU 167 (H) 70 - 110 mg/dL ABG+COOX+NA+K+GLU+CA2+ Collection Time: 01/12/20 11:32 AM Result Value Ref Range PH 7.46 (H) 7.35 - 7.45 PCO2 35 35 - 45 mmHg PO2 63 (L) 80 - 100 mmHg HCO3 24 22 - 26 mEq/L BE 0.3 -3.0 - 3.0 mEq/L THB 9.8 (L) 13.5 - 18.0 g/dL %O2HB 92.4 (L) 94.0 - 99.0 % %COHB ART 0.3 0.0 - 1.5 % %METHB ART 0.3 (L) 0.4 - 1.5 % VOL%O2 ART 12.8 (L) 15.0 - 23.0 % NA 139 135 - 145 mmol/L K+ 3.9 3.5 - 5.0 mmol/L AC CA IONZ 4.40 (L) 4.50 - 5.30 mg/dL GLUCOSE 154 (H) 70 - 110 mg/dL POCT GLUCOSE (AUTOMATED) Collection Time: 01/12/20 12:06 PM Result Value Ref Range POCT GLU 156 (H) 70 - 110 mg/dL PHOSPHORUS Collection Time: 01/12/20 12:15 PM Result Value Ref Range PHOSPHORUS 3.0 2.5 - 5.0 mg/dL POTASSIUM SERUM Collection Time: 01/12/20 12:15 PM Result Value Ref Range K 3.8 3.5 - 5.0 mmol/L MAGNESIUM Collection Time: 01/12/20 12:15 PM Result Value Ref Range MAGNESIUM 2.6 (H) 1.7 - 2.4 mg/dL POCT GLUCOSE (AUTOMATED) Collection Time: 01/12/20 2:02 PM Result Value Ref Range POCT GLU 141 (H) 70 - 110 mg/dL POTASSIUM SERUM Collection Time: 01/12/20 3:48 PM Result Value Ref Range K 3.9 3.5 - 5.0 mmol/L MAGNESIUM Collection Time: 01/12/20 3:48 PM Result Value Ref Range MAGNESIUM 2.4 1.7 - 2.4 mg/dL PHOSPHORUS Collection Time: 01/12/20 3:48 PM Result Value Ref Range PHOSPHORUS 2.9 2.5 - 5.0 mg/dL POCT GLUCOSE (AUTOMATED) Collection Time: 01/12/20 3:56 PM Result Value Ref Range POCT GLU 141 (H) 70 - 110 mg/dL POCT GLUCOSE (AUTOMATED) Collection Time: 01/12/20 5:57 PM Result Value Ref Range POCT GLU 154 (H) 70 - 110 mg/dL AC PANEL 20 + LACTIC ACID Collection Time: 01/12/20 7:59 PM Result Value Ref Range PH 7.47 (H) 7.35 - 7.45 PCO2 26 (L) 35 - 45 mmHg PO2 78 (L) 80 - 100 mmHg HCO3 19 (L) 22 - 26 mEq/L BE -3.9 (L) -3.0 - 3.0 mEq/L THB 9.9 (L) 13.5 - 18.0 g/dL %O2HB 94.5 94.0 - 99.0 % %COHB ART 0.3 0.0 - 1.5 % %METHB ART 0.3 (L) 0.4 - 1.5 % VOL%O2 ART 13.2 (L) 15.0 - 23.0 % NA 139 135 - 145 mmol/L K+ 4.2 3.5 - 5.0 mmol/L AC CA IONZ 4.50 4.50 - 5.30 mg/dL GLUCOSE 142 (H) 70 - 110 mg/dL LACTIC ACID 1.09 0.50 - 2.20 mmol/L BASIC METABOLIC PANEL (NA, K, CL, CO2, GLUCOSE, BUN, CREATININE, CA) Collection Time: 01/12/20 7:59 PM Result Value Ref Range NA 139 135 - 145 mmol/L K 4.2 3.5 - 5.0 mmol/L CL 106 98 - 108 mmol/L CO2 TOTAL 25 23 - 31 mmol/L AGAP 8 2 - 16 BUN 18 7 - 23 mg/dL GLUCOSE 151 (H) 70 - 110 mg/dL CREATININE 0.87 0.60 - 1.25 mg/dL CALCIUM 7.5 (L) 8.6 - 10.6 mg/dL eGFR Calculation (Non-) 86.0 mL/min/1.73m2 eGFR Calculation () 104.3 mL/min/1.73m2 MAGNESIUM Collection Time: 01/12/20 7:59 PM Result Value Ref Range MAGNESIUM 2.2 1.7 - 2.4 mg/dL ABG+COOX+NA+K+GLU+CA2+ Collection Time: 01/12/20 10:02 PM Result Value Ref Range PH 7.47 (H) 7.35 - 7.45 PCO2 34 (L) 35 - 45 mmHg PO2 77 (L) 80 - 100 mmHg HCO3 24 22 - 26 mEq/L BE 0.8 -3.0 - 3.0 mEq/L THB 10.7 (L) 13.5 - 18.0 g/dL %O2HB 95.3 94.0 - 99.0 % %COHB ART 0.2 0.0 - 1.5 % %METHB ART 0.1 (L) 0.4 - 1.5 % VOL%O2 ART 14.4 (L) 15.0 - 23.0 % NA 139 135 - 145 mmol/L K+ 4.0 3.5 - 5.0 mmol/L AC CA IONZ 4.20 (L) 4.50 - 5.30 mg/dL GLUCOSE 170 (H) 70 - 110 mg/dL POCT GLUCOSE (AUTOMATED) Collection Time: 01/13/20 12:15 AM Result Value Ref Range POCT GLU 181 (H) 70 - 110 mg/dL POCT GLUCOSE (AUTOMATED) Collection Time: 01/13/20 2:39 AM Result Value Ref Range POCT GLU 180 (H) 70 - 110 mg/dL AC PANEL 20 + LACTIC ACID Collection Time: 01/13/20 3:05 AM Result Value Ref Range PH 7.48 (H) 7.35 - 7.45 PCO2 36 35 - 45 mmHg PO2 84 80 - 100 mmHg HCO3 26 22 - 26 mEq/L BE 2.2 -3.0 - 3.0 mEq/L THB 10.5 (L) 13.5 - 18.0 g/dL %O2HB 95.5 94.0 - 99.0 % %COHB ART 0.3 0.0 - 1.5 % %METHB ART 0.3 (L) 0.4 - 1.5 % VOL%O2 ART 14.2 (L) 15.0 - 23.0 % NA 139 135 - 145 mmol/L K+ 3.9 3.5 - 5.0 mmol/L AC CA IONZ 4.30 (L) 4.50 - 5.30 mg/dL GLUCOSE 171 (H) 70 - 110 mg/dL LACTIC ACID 1.49 0.50 - 2.20 mmol/L BASIC METABOLIC PANEL (NA, K, CL, CO2, GLUCOSE, BUN, CREATININE, CA) Collection Time: 01/13/20 3:05 AM Result Value Ref Range NA 139 135 - 145 mmol/L K 3.9 3.5 - 5.0 mmol/L CL 106 98 - 108 mmol/L CO2 TOTAL 27 23 - 31 mmol/L AGAP 6 2 - 16 BUN 19 7 - 23 mg/dL GLUCOSE 164 (H) 70 - 110 mg/dL CREATININE 0.86 0.60 - 1.25 mg/dL CALCIUM 7.3 (L) 8.6 - 10.6 mg/dL eGFR Calculation (Non-) 87.2 mL/min/1.73m2 eGFR Calculation () 105.7 mL/min/1.73m2 MAGNESIUM Collection Time: 01/13/20 3:05 AM Result Value Ref Range MAGNESIUM 2.4 1.7 - 2.4 mg/dL CBC WITH DIFFERENTIAL Collection Time: 01/13/20 3:05 AM Result Value Ref Range WBC 9.19 4.20 - 10.70 10*3/L RBC 2.72 (L) 4.26 - 5.52 10*6/L HGB 8.4 (L) 12.2 - 16.4 g/dL HCT 25.4 (L) 38.4 - 49.3 % MCV 93.4 81.7 - 95.6 fL MCH 30.9 26.1 - 32.7 pg MCHC 33.1 31.2 - 35.0 g/dL RDW-SD 53.1 (H) 38.5 - 51.6 fL RDW-CV 15.8 (H) 12.1 - 15.4 % PLT 106 (L) 150 - 328 10*3/L MPV 9.9 9.8 - 13.0 fL NRBC/100 WBC 0.0 0.0 - 10.0 /100 WBCs NRBC x10^3 <0.01 10*3/L GRAN MAT (NEUT) % 79.6 % IMM GRAN % 0.50 % LYMPH % 9.9 % MONO % 9.2 % EOS % 0.5 % BASO % 0.3 % GRAN MAT x10^3(ANC) 7.30 (H) 1.99 - 6.95 10*3/uL IMM GRAN x10^3 0.05 0.00 - 0.06 10*3/uL LYMPH x10^3 0.91 (L) 1.09 - 3.23 10*3/uL MONO x10^3 0.85 0.36 - 1.02 10*3/uL EOS x10^3 0.05 (L) 0.06 - 0.53 10*3/uL BASO x10^3 0.03 0.01 - 0.09 10*3/uL AC PANEL 21 + LACTIC ACID Collection Time: 01/13/20 3:23 AM Result Value Ref Range PH 7.43 (H) 7.32 - 7.42 PCO2 EMELY 38 (L) 41 - 51 mmHg PO2 EMELY 29 25 - 40 mmHg HCO3 EMELY 25 24 - 28 mEq/L AC VBE(BEAKER) 0.6 mEq/L THB EMELY 10.8 (L) 13.5 - 18.0 g/dL %O2HB EMELY 54.6 52.0 - 63.0 % %COHB EMELY 0.7 0.0 - 1.5 % %METHB EMELY 0.3 (L) 0.4 - 1.5 % VOL%O2 EMELY 8.3 6.0 - 12.0 % NA 139 135 - 145 mmol/L K+ 3.9 3.5 - 5.0 mmol/L AC CA IONZ 4.40 (L) 4.50 - 5.30 mg/dL GLUCOSE 166 (H) 70 - 110 mg/dL LACTIC ACID 1.21 0.50 - 2.20 mmol/L ABG+COOX+NA+K+GLU+CA2+ Collection Time: 01/13/20 5:21 AM Result Value Ref Range PH 7.45 7.35 - 7.45 PCO2 36 35 - 45 mmHg PO2 76 (L) 80 - 100 mmHg HCO3 24 22 - 26 mEq/L BE 0.4 -3.0 - 3.0 mEq/L THB 9.2 (L) 13.5 - 18.0 g/dL %O2HB 94.8 94.0 - 99.0 % %COHB ART 0.3 0.0 - 1.5 % %METHB ART 0.0 (L) 0.4 - 1.5 % VOL%O2 ART 12.4 (L) 15.0 - 23.0 % NA 137 135 - 145 mmol/L K+ 4.0 3.5 - 5.0 mmol/L AC CA IONZ 4.30 (L) 4.50 - 5.30 mg/dL GLUCOSE 190 (H) 70 - 110 mg/dL POCT GLUCOSE (AUTOMATED) Collection Time: 01/13/20 6:51 AM Result Value Ref Range POCT GLU 187 (H) 70 - 110 mg/dL Xr Chest 1 Vw Result Date: 01/11/2020 Lines and tubes, as above.. Cardiomegaly with mild edema. Small left effusion. Patchy right basilar atelectasis versus infiltrate. Right upper lobe nodule measuring 9 mm, recommend comparison to prior exams. RL: 6200 Assessment/Plan: Juan Diego Damon is a 74 year old male Neuro: Sedation with propofol, will wean to assess mental status. Analgesia with PRN fentanyl. Offsedation now. Following commands. CV: Vasoplegic shock improving s/p CABG on edobutamine drips. Maintain MAP> 65 and CI>2. Monitor PAP. Wean inotropes and pressors as tolerated CAD s/p CABG begin DAPT therapy. Respiratory: Acute post operative respirator insufficiency CXR reviewed no focal consolidations or infiltrates, ETT and chest tubes in position. Left sided small pleural effusion seen Now on vent SIMV, FiO2 55%, Vt 550 RR 16 and PEEP of 5, latest ABG reviewed shows a improving A-a gradient with stable pCO2 and pH Will wean vent today in anticipation of SBT and extubation. COPD not in exacerbation add PRN nebs JUANA highly suspected needs PSG as outpatient GI: No active issues : Hypomagnesemia repleted ID: On vancomycin for surgical ppx, allergic to PCN Heme: Acute blood loss anemia intra op s/p 2 U PRBC with appropriate response. On DAPT therapy. Endo: DM monitor sugar, begin insulin drip if glucose >200 MSK:No active issues Ventilator Bundle: Sedation/Analgesia + RASS: Propofol -2 Stress ulcer prophylaxis:PPI DVT prophylaxis: Heparin Nutrition:NPO Code status: Full Disposition: ICU Syeda Morse MD Critical care time 60 minutes, excluding procedures Liana Thompson OT - 01/13/2020 8:48 AM CDT3 OCCUPATIONAL THERAPY NOTE: Consult received; Epic reviewed. However, patient is currently on mechanical vent. OT to attempt initial evaluation as time permits and as patient is medically appropriate. Thank you for this consult. JOSEPH Reyes, MOT Pager: [phone] Erika Scruggs, PT - 01/13/2020 7:57 AM CDTPT Note: Consult received and EPIC reviewed. Attempted to see pt, however patient continued to be on mechanical vent. Will attempt later as patient medically appropriate and as time permits. Thank you for this consult. ERIKA GRAYSON, PT, DPT Pgr. [phone] Isidro Blank MD - 01/13/2020 7:26 AM CDT Cardiothoracic Surgery Date of Service: 01/13/2020 07:27 S/P AVR, CABG PHYSICAL EXAM: Vitals: 01/13/20 0500 01/13/20 0530 01/13/20 0600 01/13/20 0615 BP: Pulse: 95 95 94 94 Resp: 28 26 27 26 Temp: 37.4 C (99.3 F) TempSrc: Core SpO2: 96% 95% 94% 97% Weight: 128.5 kg (283 lb 4.7 oz) Height: Intake/Output Summary (Last 24 hours) at 01/13/2020 0727 Last data filed at 01/13/2020 0600 Gross per 24 hour Intake 2709.6 ml Output 1975 ml Net 734.6 ml Lungs: clear to auscultation bilaterally Cardio: S1, S2 normal; no murmurs, rubs or gallops Abdomen: soft; non-tender; non-distended; normoactive bowel sounds LABS: Admission on 01/05/2020, Discharged on 01/06/2020 Component Date Value PROTIME PATIENT 01/05/2020 11.8 INR 01/05/2020 1.1 NA 01/05/2020 143 K 01/05/2020 4.0 CL 01/05/2020 107 CO2 TOTAL 01/05/2020 23 AGAP 01/05/2020 13 BUN 01/05/2020 28* GLUCOSE 01/05/2020 108 CREATININE 01/05/2020 0.89 CALCIUM 01/05/2020 8.9 eGFR Calculation (Non-Af* 01/05/2020 83.8 eGFR Calculation (Iaram* 01/05/2020 101.6 WBC 01/05/2020 7.17 RBC 01/05/2020 4.37 HGB 01/05/2020 13.4 HCT 01/05/2020 40.6 MCV 01/05/2020 92.9 MCH 01/05/2020 30.7 MCHC 01/05/2020 33.0 RDW-SD 01/05/2020 49.7 RDW-CV 01/05/2020 14.8 PLT 01/05/2020 246 MPV 01/05/2020 9.3* NRBC/100 WBC 01/05/2020 0.0 NRBC x10^3 01/05/2020 <0.01 GRAN MAT (NEUT) % 01/05/2020 62.5 IMM GRAN % 01/05/2020 0.60 LYMPH % 01/05/2020 22.5 MONO % 01/05/2020 8.4 EOS % 01/05/2020 5.2 BASO % 01/05/2020 0.8 GRAN MAT x10^3(ANC) 01/05/2020 4.49 IMM GRAN x10^3 01/05/2020 0.04 LYMPH x10^3 01/05/2020 1.61 MONO x10^3 01/05/2020 0.60 EOS x10^3 01/05/2020 0.37 BASO x10^3 01/05/2020 0.06 HGB A1C 01/05/2020 7.6* POCT GLU 01/05/2020 195* POCT GLU 01/05/2020 238* ACTLR 01/05/2020 289* POCT GLU 01/05/2020 256* POCT GLU 01/06/2020 252* ACTLR 01/05/2020 270* RADIOLOGY: Xr Chest 1 Vw Result Date: 01/11/2020 Lines and tubes, as above.. Cardiomegaly with mild edema. Small left effusion. Patchy right basilar atelectasis versus infiltrate. Right upper lobe nodule measuring 9 mm, recommend comparison to prior exams. RL: 6200 SSMENT/PLAN Juan Diego Damon is a 74 year old male S/P AVR, CABG Wean off vent and pressors, Wean Flolan CT to suction END OF DAILY PROGRESS NOTE HOSPITAL COURSE CURRENT MEDICATIONS - reviewed. Current Facility-Administered Medications Medication Dose Route Frequency Last Rate Last Dose aspirin chewable tablet 81 mg 81 mg Oral DAILY docusate (COLACE) 50 mg/5 mL solution 100 mg 100 mg Enteral DAILY 100 mg at 01/12/20 1018 epoprostenol (FLOLAN) 500 mcg in sterile diluent 50 mL nebulizer solution 5 ng/kg/min Inhalation CONTINUOUS Stopped at 01/12/20 1358 HYDROcodone-acetaminophen (NORCO 5) 5-325 mg tablet 1 tablet 1 tablet Oral Q6HPRN 1 tablet at01/12/20 1630 propofol IV infusion 5-75 mcg/kg/min IV Infusion TITRATE 11.42 mL/hr at 10/22 0600 15 mcg/kg/min at 01/13/20 0600 acetaminophen (TYLENOL) suppository 650 mg 650 mg Rectal Q6HPRN acetaminophen (TYLENOL) tablet 650 mg 650 mg Oral Q6HPRN cardioplegic (PLEGISOL) perfusion solution PRN 1,000 mL at 01/11/20 0811 clopidogreL (PLAVIX) tablet 75 mg 75 mg Oral DAILY 75 mg at 01/12/20 1016 D5W-LR IV infusion 1,000 mL 1,000 mL IV Infusion CONTINUOUS Stopped at 1828 dextrose 50 % in water (D50W) injection 25 mL 25 mL Slow IV Push PRN DOBUTamine (DOBUTREX) 500 mg in 250 mL (Fixed Dose) D5W infusion RTU 2.5- 20 mcg/kg/min IV Infusion TITRATE 11.73 mL/hr at 01/12/20 2302 3.5 mcg/kg/min at 01/12/20 2302 EPINEPHrine HCl in 0.9 % NaCl 4 mg/250 mL (16 mcg/mL) infusion RTU 0.01- 0.7 mcg/kg/min IV Infusion TITRATE Stopped at 01/13/20 0530 furosemide (LASIX) injection 20 mg 20 mg IV Push PRN gentamicin 40 mg/mL 80 mg, vancomycin (VANCOCIN) 1,000 mg in NaCl 0.9% (NS) 1,000 mL OR irrigation PRN 1,000 mL at 01/11/20 0810 glucagon (GLUCAGEN DIAGNOSTIC KIT) injection 1 mg 1 mg Intramuscular PRN heparin (porcine) injection 5,000 Units 5,000 Units Subcutaneous Q12H 5, 000 Units at 01/12/202022 heparin 1,000 unit/mL 30,000 Units in NaCl 0.9% (NS) 1,000 mL OR irrigation PRN 1,000 mL at01/11/20 0757 heparin 1,000 unit/mL 5,000 Units in NaCl 0.9% (NS) 500 mL OR irrigation PRN 500 mL at 01/11/20 0810 insulin regular human (HUMULIN R) 100 Units in NaCl 0.9% (NS) 100 mL infusion 2 Units/hr IV Infusion TITRATE 9 mL/hr at 01/13/20 0651 9 Units/hr at 01/13/20 0651 milrinone in D5W (PRIMACOR) 40 mg/200 mL infusion RTU 0.125-0.75 mcg/kg/ min IV Infusion TITRATE Stopped at 01/12/20 0424 NaCl 0.9% (NS) bolus infusion 250 mL 250 mL IV Infusion PRN - SEE INSTRUCTIONS NORepinephrine 4 mg in D5W 250 mL infusion RTU 0.05-3 mcg/kg/min IV Infusion TITRATE Stopped at 01/12/20 0541 ondansetron (ZOFRAN (PF)) injection 4 mg 4 mg Slow IV Push Q6HPRN papaverine 60 mg in NaCl 0.9% (NS) 60 mL OR irrigation PRN 60 mL at 08/22 0809 sennosides (SENOKOT) tablet 8.6 mg 8.6 mg Oral DAILY 8.6 mg at 01/12/20 1016 acetaminophen (TYLENOL) tablet 650 mg 650 mg Oral Q6HPRN atorvastatin (LIPITOR) tablet 20 mg 20 mg Oral QHS 20 mg at 01/12/20 2023 carvediloL (COREG) tablet 6.25 mg 6.25 mg Oral BID MEALS Stopped at 01/10 1700 chlorhexidine (KIKI-HEX) 4 % liquid Topical PRE-PROCEDURE ONCE finasteride (PROSCAR) tablet 5 mg 5 mg Oral DAILY Stopped at 01/12/20 0900 gemfibrozil (LOPID) tablet 600 mg 600 mg Oral BIDAC 600 mg at 01/12/20 1631 omeprazole (PRILOSEC) capsule 20 mg 20 mg Oral DAILY 20 mg at 01/12/20 1016 Sliding Scale Insulin-Regular + Fsbg Testing Subcutaneous AC+HS Stopped at 01/11/20 2100 tamsulosin (FLOMAX) capsule 0.4 mg 0.4 mg Oral BID 0.4 mg at 01/12/202022 Kai Pool SW - 01/12/2020 3:52 PM CDTCare Management Social Functional Assessment Patient Name: Juan Diego Damon Age: [age] year old Sex: male Patient's Previous Admission Date at [facility]: 01/05/2020 Current diagnosis and co-morbidities: cad Readmission Questions: Was patient discharged from any acute care hospital within the last 30 days: Yes Were all questions regarding previous illness/diagnosis answered prior to discharge: Yes Did you have any difficulties with your discharge instructions: No Were you able to go to your follow-up discharge appointments: No If No, comment: READMITTED Any difficulties after discharge with medications: No Any difficulties after discharge with transportation: No Any difficulties after discharge with physical conditions, support, or other limitations?: No Did patient refuse services that were recommended on the previous admission: No Was patient non-compliant with the previously recommended treatment: No If admitted from the ED did you call your primary MD or place a sick call/ request with your provider?: No Social Functional Assessment: Primary language spoken/preferred: Albanian Mental Status: Intubated/Trached Information given by: Child Name and phone number of person giving information: [facility] [phone] OR DEVONTE DAMON SON [phone] OR POOL PRADH[employer] [phone] Patient's support system: Child Name and number of support system: [facility] [phone] OR DEVONTE DAMON SON [phone] OR POOL PRADH[employer] [phone] Primary Air Bag Buffer: Self MPOA: Yes;Same as support system Name and relation to patient (e.g. Corie Larose, daughter): [facility] [phone] Living Arrangement: Other Other living arrangement: PT HAS GARAGE APT NEXT TO [facility] [phone] Address of living arrangement : [address] [place] [id number] Persons living in home: Self Barriers to returning home: Declining function Baseline functional status- ambulation: Independent Functional status-baseline personal care: Independent Baseline functional status- driving: Independent Baseline functional status- grocery shopping: Independent Functional status-baseline housekeeping: Independent Functional status-baseline meal prep: Independent Current functional status same as prior: No Current functional status- ambulation: Dependent Current functional status- personal care: Dependent Current functional status- driving: Dependent Current functional status- grocery shopping: Dependent Current functional status-house keeping: Dependent Current functional status- meal preparation: Dependent Do you have a PCP?: Yes Name of PCP: FLORA BARRERA MD Home Health Care Agency: No Provider Services: No DME Company: No Equipment: Shower Chair;Cane;Walker Hemodialysis: No Community resources utilized: None Funding Resources: Medicare A & B;Commercial Prescription coverage plan: Commercial;Medicare Part D Pharmacy where meds are filled: Other Other pharmacy: [facility] IN [place] BUT PRIMARY IS [facility] Anticipated services prior to disharge: Cardiac Rehab Eval;Reassess prior to discharge;Continue Medical Eval Expected mode of discharge transportation: Family;Ambulance Additional Recommendations for DC: PT WILL NEED TO BE ASSESSED FOR IN PT VS OUT PT CARDIAC REHAB PROGRAM. Additional info required for discharge planning: Pending medical evaluation; Pending P/T O/T recommendation Recommended discharge plan: Home;New placement;Other SFA Complete: Social Functional Assessment complete: Yes Alcohol Use Screening (AUDIT-C) How often do you have a drink containing alcohol?: Never SCORE: 0 Did patient elect to have resources provided: No Role of Care Management explained. Syeda Valadez MD - 01/12/2020 10:08 AM CDT Critical Care Medicine Progress Note Date of Service: 01/12/2020 ICU Day:2 Intubation Day:2 Last 24 hour events (major events): Started on Flolan yesterday, sedation weaned this morning, became uncomfortable. Now sedated on propofol. Subjective: Unobtainable Lines (with dates):PIV, Right IJ PAC, Chest tube x3, radial arterial line, ETT Live:Yes Intake/Output: Intake/Output Summary (Last 24 hours) at 01/12/2020 1008 Last data filed at 01/12/2020 0900 Gross per 24 hour Intake 23559 ml Output 3628 ml Net 8818 ml Physical Exam: Temp: [36.6 C (97.9 F)-37.6 C (99.7 F)] Heart Rate (monitor): [92-114] Pulse: [93-114] Resp: [11-34] BP: (93-133)/(48-73) Arterial Line BP: (-6-158)/(-13-88) MAP (mmHg): [66-91] MAP: [63 mmHg-102 mmHg] General: well developed, well nourished, intubated, intubated and sedated, obese HEENT: normocephalic atraumatic, pupils equal, round, reactive to light Neck: full range of motion Lungs: clear to auscultation bilaterally Cardio: S1, S2 normal; no murmurs, rubs or gallops, regular rate and rhythm Abdomen: soft; non-tender; non-distended; normoactive bowel sounds : not examined Rectal: not examined Extremities: no clubbing, cyanosis, or edema Skin: no rashes Neuro: sedated Labs (pertinent only)/Imaging: Recent Results (from the past 24 hour(s)) POCT ACT HIGH RANGE Collection Time: 01/11/20 10:19 AM Result Value Ref Range ACTHR 651 (H) 96 - 152 Seconds ISTAT ACUTE CARE ARTERIAL Collection Time: 01/11/20 10:22 AM Result Value Ref Range PH 7.39 7.35 - 7.45 PCO2 46 (H) 35 - 45 mmHg PO2 326 (H) 80 - 100 mmHg BE 3.0 -3.0 - 3.0 mEq/L HCO3 28 (H) 22 - 26 mEq/L %O2HB 100.0 (H) 95.0 - 98.0 % NA 139 135 - 145 mmol/L K+ 5.6 (H) 3.5 - 5.0 mmol/L AC CA IONZ 3.80 (L) 4.50 - 5.30 mg/dL GLUCOSE 216 (H) 70 - 110 mg/dL AC Hematocrit 24 (LL) 40 - 54 VOL % THB 8.2 (LL) 13.5 - 18.0 g/dL AC TC02 29 (H) 23-27 mmol/L mmol/L POCT ACT HIGH RANGE Collection Time: 01/11/20 10:43 AM Result Value Ref Range ACTHR 549 (H) 96 - 152 Seconds [facility]UTE [facility] ARTERIAL Collection Time: 01/11/20 10:46 AM Result Value Ref Range PH 7.42 7.35 - 7.45 PCO2 43 35 - 45 mmHg PO2 344 (H) 80 - 100 mmHg BE 4.0 (H) -3.0 - 3.0 mEq/L HCO3 28 (H) 22 - 26 mEq/L %O2HB 100.0 (H) 95.0 - 98.0 % NA 138 135 - 145 mmol/L K+ 6.0 (H) 3.5 - 5.0 mmol/L AC CA IONZ 3.80 (L) 4.50 - 5.30 mg/dL GLUCOSE 225 (H) 70 - 110 mg/dL AC Hematocrit 25 (LL) 40 - 54 VOL % THB 8.5 (L) 13.5 - 18.0 g/dL AC TC02 30 (H) 23-27 mmol/L mmol/L POCT ACT HIGH RANGE Collection Time: 01/11/20 11:13 AM Result Value Ref Range ACTHR 541 (H) 96 - 152 Seconds [facility] Collection Time: 01/11/20 11:16 AM Result Value Ref Range PH 7.44 7.35 - 7.45 PCO2 41 35 - 45 mmHg PO2 398 (H) 80 - 100 mmHg BE 4.0 (H) -3.0 - 3.0 mEq/L HCO3 28 (H) 22 - 26 mEq/L %O2HB 100.0 (H) 95.0 - 98.0 % NA 141 135 - 145 mmol/L K+ 5.3 (H) 3.5 - 5.0 mmol/L AC CA IONZ 3.80 (L) 4.50 - 5.30 mg/dL GLUCOSE 192 (H) 70 - 110 mg/dL AC Hematocrit 25 (LL) 40 - 54 VOL % THB 8.5 (L) 13.5 - 18.0 g/dL AC TC02 29 (H) 23-27 mmol/L mmol/L POCT ACT HIGH RANGE Collection Time: 01/11/20 11:42 AM Result Value Ref Range ACTHR 436 (H) 96 - 152 Seconds [facility] ARTERIAL Collection Time: 01/11/20 11:45 AM Result Value Ref Range PH 7.45 7.35 - 7.45 PCO2 40 35 - 45 mmHg PO2 388 (H) 80 - 100 mmHg BE 4.0 (H) -3.0 - 3.0 mEq/L HCO3 28 (H) 22 - 26 mEq/L %O2HB 100.0 (H) 95.0 - 98.0 % NA 141 135 - 145 mmol/L K+ 5.4 (H) 3.5 - 5.0 mmol/L AC CA IONZ 3.80 (L) 4.50 - 5.30 mg/dL GLUCOSE 175 (H) 70 - 110 mg/dL AC Hematocrit 25 (LL) 40 - 54 VOL % THB 8.5 (L) 13.5 - 18.0 g/dL AC TC02 29 (H) 23-27 mmol/L mmol/L POCT ACT HIGH RANGE Collection Time: 01/11/20 12:13 PM Result Value Ref Range ACTHR 433 (H) 96 - 152 Seconds ISTAT ACUTE CARE ARTERIAL Collection Time: 01/11/20 12:17 PM Result Value Ref Range PH 7.40 7.35 - 7.45 PCO2 42 35 - 45 mmHg PO2 383 (H) 80 - 100 mmHg BE 1.0 -3.0 - 3.0 mEq/L HCO3 26 22 - 26 mEq/L %O2HB 100.0 (H) 95.0 - 98.0 % NA 142 135 - 145 mmol/L K+ 5.4 (H) 3.5 - 5.0 mmol/L AC CA IONZ 3.70 (L) 4.50 - 5.30 mg/dL GLUCOSE 173 (H) 70 - 110 mg/dL AC Hematocrit 23 (LL) 40 - 54 VOL % THB 7.8 (LL) 13.5 - 18.0 g/dL AC TC02 27 23-27 mmol/L mmol/L aPTT Collection Time: 01/11/20 1:00 PM Result Value Ref Range APTT Patient 34 26 - 36 Seconds FIBRINOGEN Collection Time: 01/11/20 1:00 PM Result Value Ref Range Fibrinogen 224 167 - 453 mg/dL PROTHROMBIN TIME / INR Collection Time: 01/11/20 1:00 PM Result Value Ref Range PROTIME PATIENT 15.1 (H) 10.1 - 12.6 Seconds INR 1.4 HEMATOCRIT Collection Time: 01/11/20 1:12 PM Result Value Ref Range HCT 24.1 (L) 38.4 - 49.3 % HEMOGLOBIN Collection Time: 01/11/20 1:12 PM Result Value Ref Range HGB 8.1 (L) 12.2 - 16.4 g/dL PLATELET COUNT Collection Time: 01/11/20 1:12 PM Result Value Ref Range PLT 161 150 - 328 10*3/L [facility] ARTERIAL Collection Time: 01/11/20 1:13 PM Result Value Ref Range PH 7.20 (L) 7.35 - 7.45 PCO2 7 (L) 35 - 45 mmHg PO2 205 (H) 80 - 100 mmHg BE -25.0 (L) -3.0 - 3.0 mEq/L HCO3 3 (L) 22 - 26 mEq/L %O2HB 100.0 (H) 95.0 - 98.0 % NA 160 (H) 135 - 145 mmol/L K+ <2.0 (LL) 3.5 - 5.0 mmol/L AC CA IONZ <1.00 (LL) 4.50 - 5.30 mg/dL GLUCOSE 24 (LL) 70 - 110 mg/dL AC Hematocrit 55 (H) 40 - 54 VOL % THB 18.7 (H) 13.5 - 18.0 g/dL AC TC02 <5 (L) 23-27 mmol/L mmol/L POCT ACT HIGH RANGE Collection Time: 01/11/20 1:14 PM Result Value Ref Range ACTHR 106 96 - 152 Seconds [facility] ARTERIAL Collection Time: 01/11/20 2:07 PM Result Value Ref Range PH 7.30 (L) 7.35 - 7.45 PCO2 51 (H) 35 - 45 mmHg PO2 243 (H) 80 - 100 mmHg BE -2.0 -3.0 - 3.0 mEq/L HCO3 25 22 - 26 mEq/L %O2HB 100.0 (H) 95.0 - 98.0 % NA 143 135 - 145 mmol/L K+ 4.3 3.5 - 5.0 mmol/L AC CA IONZ 4.00 (L) 4.50 - 5.30 mg/dL GLUCOSE 142 (H) 70 - 110 mg/dL AC Hematocrit 21 (LL) 40 - 54 VOL % THB 7.1 (LL) 13.5 - 18.0 g/dL AC TC02 26 23-27 mmol/L mmol/L ABG+COOX+NA+K+GLU+CA2+ Collection Time: 01/11/20 3:22 PM Result Value Ref Range PH 7.23 (L) 7.35 - 7.45 PCO2 43 35 - 45 mmHg PO2 94 80 - 100 mmHg HCO3 18 (L) 22 - 26 mEq/L BE -9.4 (L) -3.0 - 3.0 mEq/L THB 10.7 (L) 13.5 - 18.0 g/dL %O2HB 94.8 94.0 - 99.0 % %COHB ART 0.7 0.0 - 1.5 % %METHB ART 0.1 (L) 0.4 - 1.5 % VOL%O2 ART 14.4 (L) 15.0 - 23.0 % NA 139 135 - 145 mmol/L K+ 4.8 3.5 - 5.0 mmol/L AC CA IONZ 4.40 (L) 4.50 - 5.30 mg/dL GLUCOSE 114 (H) 70 - 110 mg/dL CBC WITH DIFFERENTIAL Collection Time: 01/11/20 3:23 PM Result Value Ref Range WBC 14.96 (H) 4.20 - 10.70 10*3/L RBC 3.42 (L) 4.26 - 5.52 10*6/L HGB 10.3 (L) 12.2 - 16.4 g/dL HCT 31.0 (L) 38.4 - 49.3 % MCV 90.6 81.7 - 95.6 fL MCH 30.1 26.1 - 32.7 pg MCHC 33.2 31.2 - 35.0 g/dL RDW-SD 49.0 38.5 - 51.6 fL RDW-CV 14.9 12.1 - 15.4 % PLT 164 150 - 328 10*3/L MPV 9.5 (L) 9.8 - 13.0 fL NRBC/100 WBC 0.0 0.0 - 10.0 /100 WBCs NRBC x10^3 <0.01 10*3/L GRAN MAT (NEUT) % 76.3 % IMM GRAN % 1.80 % LYMPH % 8.0 % MONO % 13.5 % EOS % 0.2 % BASO % 0.2 % GRAN MAT x10^3(ANC) 11.42 (H) 1.99 - 6.95 10*3/uL IMM GRAN x10^3 0.27 (H) 0.00 - 0.06 10*3/uL LYMPH x10^3 1.19 1.09 - 3.23 10*3/uL MONO x10^3 2.02 (H) 0.36 - 1.02 10*3/uL EOS x10^3 0.03 (L) 0.06 - 0.53 10*3/uL BASO x10^3 0.03 0.01 - 0.09 10*3/uL BASO STIPPLING Present (A) BANDS Increased (A) TOXIC CHANGES Present (A) Basic Metabolic Panel (NA, K, CL, CO2, GLUCOSE, BUN, CREATININE, CA) Collection Time: 01/11/20 3:24 PM Result Value Ref Range NA 139 135 - 145 mmol/L K 4.8 3.5 - 5.0 mmol/L CL 109 (H) 98 - 108 mmol/L CO2 TOTAL 23 23 - 31 mmol/L AGAP 7 2 - 16 BUN 24 (H) 7 - 23 mg/dL GLUCOSE 128 (H) 70 - 110 mg/dL CREATININE 0.79 0.60 - 1.25 mg/dL CALCIUM 6.8 (L) 8.6 - 10.6 mg/dL eGFR Calculation (Non-) 96.1 mL/min/1.73m2 eGFR Calculation () 116.5 mL/min/1.73m2 MAGNESIUM Collection Time: 01/11/20 3:24 PM Result Value Ref Range MAGNESIUM 1.5 (L) 1.7 - 2.4 mg/dL PHOSPHORUS Collection Time: 01/11/20 3:24 PM Result Value Ref Range PHOSPHORUS 2.8 2.5 - 5.0 mg/dL PROTHROMBIN TIME / INR Collection Time: 01/11/20 3:24 PM Result Value Ref Range PROTIME PATIENT 14.7 (H) 10.1 - 12.6 Seconds INR 1.3 aPTT Collection Time: 01/11/20 3:24 PM Result Value Ref Range APTT Patient 38 (H) 26 - 36 Seconds ABG+COOX+NA+K+GLU+CA2+ Collection Time: 01/11/20 4:24 PM Result Value Ref Range PH 7.33 (L) 7.35 - 7.45 PCO2 50 (H) 35 - 45 mmHg PO2 85 80 - 100 mmHg HCO3 26 22 - 26 mEq/L BE -0.4 -3.0 - 3.0 mEq/L THB 11.1 (L) 13.5 - 18.0 g/dL %O2HB 94.9 94.0 - 99.0 % %COHB ART 1.0 0.0 - 1.5 % %METHB ART 0.3 (L) 0.4 - 1.5 % VOL%O2 ART 14.9 (L) 15.0 - 23.0 % NA 139 135 - 145 mmol/L K+ 4.3 3.5 - 5.0 mmol/L AC CA IONZ 5.30 4.50 - 5.30 mg/dL GLUCOSE 157 (H) 70 - 110 mg/dL POCT GLUCOSE (AUTOMATED) Collection Time: 01/11/20 4:31 PM Result Value Ref Range POCT GLU 159 (H) 70 - 110 mg/dL POCT GLUCOSE (AUTOMATED) Collection Time: 01/11/20 5:43 PM Result Value Ref Range POCT GLU 179 (H) 70 - 110 mg/dL ABG+COOX+NA+K+GLU+CA2+ Collection Time: 01/11/20 6:06 PM Result Value Ref Range PH 7.36 7.35 - 7.45 PCO2 45 35 - 45 mmHg PO2 83 80 - 100 mmHg HCO3 25 22 - 26 mEq/L BE -1.1 -3.0 - 3.0 mEq/L THB 11.1 (L) 13.5 - 18.0 g/dL %O2HB 94.8 94.0 - 99.0 % %COHB ART 0.8 0.0 - 1.5 % %METHB ART 0.2 (L) 0.4 - 1.5 % VOL%O2 ART 14.9 (L) 15.0 - 23.0 % NA 139 135 - 145 mmol/L K+ 4.3 3.5 - 5.0 mmol/L AC CA IONZ 5.00 4.50 - 5.30 mg/dL GLUCOSE 186 (H) 70 - 110 mg/dL POCT GLUCOSE (AUTOMATED) Collection Time: 01/11/20 6:25 PM Result Value Ref Range POCT GLU 195 (H) 70 - 110 mg/dL POCT GLUCOSE (AUTOMATED) Collection Time: 01/11/20 7:07 PM Result Value Ref Range POCT GLU 211 (H) 70 - 110 mg/dL AC PANEL 20 + LACTIC ACID Collection Time: 01/11/20 7:59 PM Result Value Ref Range PH 7.38 7.35 - 7.45 PCO2 40 35 - 45 mmHg PO2 90 80 - 100 mmHg HCO3 23 22 - 26 mEq/L BE -1.8 -3.0 - 3.0 mEq/L THB 10.5 (L) 13.5 - 18.0 g/dL %O2HB 95.7 94.0 - 99.0 % %COHB ART 0.7 0.0 - 1.5 % %METHB ART 0.2 (L) 0.4 - 1.5 % VOL%O2 ART 14.2 (L) 15.0 - 23.0 % NA 139 135 - 145 mmol/L K+ 4.5 3.5 - 5.0 mmol/L AC CA IONZ 4.80 4.50 - 5.30 mg/dL GLUCOSE 215 (H) 70 - 110 mg/dL LACTIC ACID 1.45 0.50 - 2.20 mmol/L BASIC METABOLIC PANEL (NA, K, CL, CO2, GLUCOSE, BUN, CREATININE, CA) Collection Time: 01/11/20 7:59 PM Result Value Ref Range NA 139 135 - 145 mmol/L K 4.5 3.5 - 5.0 mmol/L CL 107 98 - 108 mmol/L CO2 TOTAL 23 23 - 31 mmol/L AGAP 9 2 - 16 BUN 22 7 - 23 mg/dL GLUCOSE 201 (H) 70 - 110 mg/dL CREATININE 0.83 0.60 - 1.25 mg/dL CALCIUM 8.8 8.6 - 10.6 mg/dL eGFR Calculation (Non-) 90.8 mL/min/1.73m2 eGFR Calculation () 110.1 mL/min/1.73m2 MAGNESIUM Collection Time: 01/11/20 7:59 PM Result Value Ref Range MAGNESIUM 1.6 (L) 1.7 - 2.4 mg/dL CBC WITH DIFFERENTIAL Collection Time: 01/11/20 7:59 PM Result Value Ref Range WBC 12.61 (H) 4.20 - 10.70 10*3/L RBC 3.22 (L) 4.26 - 5.52 10*6/L HGB 10.1 (L) 12.2 - 16.4 g/dL HCT 29.4 (L) 38.4 - 49.3 % MCV 91.3 81.7 - 95.6 fL MCH 31.4 26.1 - 32.7 pg MCHC 34.4 31.2 - 35.0 g/dL RDW-SD 49.5 38.5 - 51.6 fL RDW-CV 15.2 12.1 - 15.4 % PLT 158 150 - 328 10*3/L MPV 9.5 (L) 9.8 - 13.0 fL NRBC/100 WBC 0.0 0.0 - 10.0 /100 WBCs NRBC x10^3 <0.01 10*3/L GRAN MAT (NEUT) % 87.4 % IMM GRAN % 0.70 % LYMPH % 4.0 % MONO % 7.7 % EOS % 0.0 % BASO % 0.2 % GRAN MAT x10^3(ANC) 11.02 (H) 1.99 - 6.95 10*3/uL IMM GRAN x10^3 0.09 (H) 0.00 - 0.06 10*3/uL LYMPH x10^3 0.50 (L) 1.09 - 3.23 10*3/uL MONO x10^3 0.97 0.36 - 1.02 10*3/uL EOS x10^3 <0.03 (L) 0.06 - 0.53 10*3/uL BASO x10^3 0.03 0.01 - 0.09 10*3/uL POCT GLUCOSE (AUTOMATED) Collection Time: 01/11/20 9:10 PM Result Value Ref Range POCT GLU 236 (H) 70 - 110 mg/dL POCT GLUCOSE (AUTOMATED) Collection Time: 01/11/20 10:02 PM Result Value Ref Range POCT GLU 227 (H) 70 - 110 mg/dL AC PANEL 20 + LACTIC ACID Collection Time: 01/11/20 10:19 PM Result Value Ref Range PH 7.40 7.35 - 7.45 PCO2 35 35 - 45 mmHg PO2 86 80 - 100 mmHg HCO3 21 (L) 22 - 26 mEq/L BE -2.8 -3.0 - 3.0 mEq/L THB 13.3 (L) 13.5 - 18.0 g/dL %O2HB 95.1 94.0 - 99.0 % %COHB ART 0.9 0.0 - 1.5 % %METHB ART 0.2 (L) 0.4 - 1.5 % VOL%O2 ART 17.8 15.0 - 23.0 % NA 138 135 - 145 mmol/L K+ 4.2 3.5 - 5.0 mmol/L AC CA IONZ 4.80 4.50 - 5.30 mg/dL GLUCOSE 216 (H) 70 - 110 mg/dL LACTIC ACID 1.98 0.50 - 2.20 mmol/L POCT GLUCOSE (AUTOMATED) Collection Time: 01/11/20 11:20 PM Result Value Ref Range POCT GLU 219 (H) 70 - 110 mg/dL AC PANEL 20 + LACTIC ACID Collection Time: 01/12/20 12:13 AM Result Value Ref Range PH 7.43 7.35 - 7.45 PCO2 30 (L) 35 - 45 mmHg PO2 74 (L) 80 - 100 mmHg HCO3 19 (L) 22 - 26 mEq/L BE -4.2 (L) -3.0 - 3.0 mEq/L THB 11.0 (L) 13.5 - 18.0 g/dL %O2HB 94.1 94.0 - 99.0 % %COHB ART 0.6 0.0 - 1.5 % %METHB ART 0.1 (L) 0.4 - 1.5 % VOL%O2 ART 14.6 (L) 15.0 - 23.0 % NA 138 135 - 145 mmol/L K+ 4.0 3.5 - 5.0 mmol/L AC CA IONZ 4.60 4.50 - 5.30 mg/dL GLUCOSE 182 (H) 70 - 110 mg/dL LACTIC ACID 2.44 0.50 - 2.20 mmol/L BASIC METABOLIC PANEL (NA, K, CL, CO2, GLUCOSE, BUN, CREATININE, CA) Collection Time: 01/12/20 12:14 AM Result Value Ref Range NA 140 135 - 145 mmol/L K 4.0 3.5 - 5.0 mmol/L CL 107 98 - 108 mmol/L CO2 TOTAL 22 (L) 23 - 31 mmol/L AGAP 11 2 - 16 BUN 22 7 - 23 mg/dL GLUCOSE 185 (H) 70 - 110 mg/dL CREATININE 0.89 0.60 - 1.25 mg/dL CALCIUM 8.7 8.6 - 10.6 mg/dL eGFR Calculation (Non-) 83.8 mL/min/1.73m2 eGFR Calculation () 101.6 mL/min/1.73m2 MAGNESIUM Collection Time: 01/12/20 12:14 AM Result Value Ref Range MAGNESIUM 1.9 1.7 - 2.4 mg/dL CBC WITH DIFFERENTIAL Collection Time: 01/12/20 12:14 AM Result Value Ref Range WBC 10.94 (H) 4.20 - 10.70 10*3/L RBC 3.26 (L) 4.26 - 5.52 10*6/L HGB 10.2 (L) 12.2 - 16.4 g/dL HCT 29.6 (L) 38.4 - 49.3 % MCV 90.8 81.7 - 95.6 fL MCH 31.3 26.1 - 32.7 pg MCHC 34.5 31.2 - 35.0 g/dL RDW-SD 50.3 38.5 - 51.6 fL RDW-CV 15.3 12.1 - 15.4 % PLT 162 150 - 328 10*3/L MPV 9.6 (L) 9.8 - 13.0 fL NRBC/100 WBC 0.0 0.0 - 10.0 /100 WBCs NRBC x10^3 <0.01 10*3/L GRAN MAT (NEUT) % 82.9 % IMM GRAN % 0.70 % LYMPH % 6.9 % MONO % 9.0 % EOS % 0.1 % BASO % 0.4 % GRAN MAT x10^3(ANC) 9.07 (H) 1.99 - 6.95 10*3/uL IMM GRAN x10^3 0.08 (H) 0.00 - 0.06 10*3/uL LYMPH x10^3 0.76 (L) 1.09 - 3.23 10*3/uL MONO x10^3 0.98 0.36 - 1.02 10*3/uL EOS x10^3 <0.03 (L) 0.06 - 0.53 10*3/uL BASO x10^3 0.04 0.01 - 0.09 10*3/uL POCT GLUCOSE (AUTOMATED) Collection Time: 01/12/20 2:05 AM Result Value Ref Range POCT GLU 184 (H) 70 - 110 mg/dL ABG+COOX+NA+K+GLU+CA2+ Collection Time: 01/12/20 4:05 AM Result Value Ref Range PH 7.40 7.35 - 7.45 PCO2 39 35 - 45 mmHg PO2 72 (L) 80 - 100 mmHg HCO3 24 22 - 26 mEq/L BE -1.0 -3.0 - 3.0 mEq/L THB 16.9 13.5 - 18.0 g/dL %O2HB 93.9 (L) 94.0 - 99.0 % %COHB ART 1.2 0.0 - 1.5 % %METHB ART 0.2 (L) 0.4 - 1.5 % VOL%O2 ART 22.3 15.0 - 23.0 % NA 141 135 - 145 mmol/L K+ 4.0 3.5 - 5.0 mmol/L AC CA IONZ 4.80 4.50 - 5.30 mg/dL GLUCOSE 172 (H) 70 - 110 mg/dL Basic Metabolic Panel (NA, K, CL, CO2, GLUCOSE, BUN, CREATININE, CA) Collection Time: 01/12/20 4:05 AM Result Value Ref Range NA 140 135 - 145 mmol/L K 4.0 3.5 - 5.0 mmol/L CL 106 98 - 108 mmol/L CO2 TOTAL 25 23 - 31 mmol/L AGAP 9 2 - 16 BUN 22 7 - 23 mg/dL GLUCOSE 162 (H) 70 - 110 mg/dL CREATININE 0.86 0.60 - 1.25 mg/dL CALCIUM 8.0 (L) 8.6 - 10.6 mg/dL eGFR Calculation (Non-) 87.2 mL/min/1.73m2 eGFR Calculation () 105.7 mL/min/1.73m2 CBC WITH DIFFERENTIAL Collection Time: 01/12/20 4:05 AM Result Value Ref Range WBC 9.71 4.20 - 10.70 10*3/L RBC 3.04 (L) 4.26 - 5.52 10*6/L HGB 9.5 (L) 12.2 - 16.4 g/dL HCT 27.6 (L) 38.4 - 49.3 % MCV 90.8 81.7 - 95.6 fL MCH 31.3 26.1 - 32.7 pg MCHC 34.4 31.2 - 35.0 g/dL RDW-SD 50.4 38.5 - 51.6 fL RDW-CV 15.6 (H) 12.1 - 15.4 % PLT 141 (L) 150 - 328 10*3/L MPV 9.4 (L) 9.8 - 13.0 fL NRBC/100 WBC 0.0 0.0 - 10.0 /100 WBCs NRBC x10^3 <0.01 10*3/L GRAN MAT (NEUT) % 78.0 % IMM GRAN % 0.60 % LYMPH % 10.0 % MONO % 11.0 % EOS % 0.1 % BASO % 0.3 % GRAN MAT x10^3(ANC) 7.57 (H) 1.99 - 6.95 10*3/uL IMM GRAN x10^3 0.06 0.00 - 0.06 10*3/uL LYMPH x10^3 0.97 (L) 1.09 - 3.23 10*3/uL MONO x10^3 1.07 (H) 0.36 - 1.02 10*3/uL EOS x10^3 <0.03 (L) 0.06 - 0.53 10*3/uL BASO x10^3 0.03 0.01 - 0.09 10*3/uL AC PANEL 21 + LACTIC ACID Collection Time: 01/12/20 4:05 AM Result Value Ref Range PH 7.40 7.32 - 7.42 PCO2 EMELY 42 41 - 51 mmHg PO2 EMELY 29 25 - 40 mmHg HCO3 EMELY 25 24 - 28 mEq/L AC VBE(BEAKER) -0.1 mEq/L THB EMELY 9.9 (L) 13.5 - 18.0 g/dL %O2HB EMELY 58.5 52.0 - 63.0 % %COHB EMELY 0.6 0.0 - 1.5 % %METHB EMELY 0.0 (L) 0.4 - 1.5 % VOL%O2 EMELY 8.1 6.0 - 12.0 % NA 142 135 - 145 mmol/L K+ 4.0 3.5 - 5.0 mmol/L AC CA IONZ 4.60 4.50 - 5.30 mg/dL GLUCOSE 170 (H) 70 - 110 mg/dL LACTIC ACID 2.20 0.50 - 2.20 mmol/L MAGNESIUM Collection Time: 01/12/20 4:05 AM Result Value Ref Range MAGNESIUM 2.3 1.7 - 2.4 mg/dL POCT GLUCOSE (AUTOMATED) Collection Time: 01/12/20 4:11 AM Result Value Ref Range POCT GLU 170 (H) 70 - 110 mg/dL POCT GLUCOSE (AUTOMATED) Collection Time: 01/12/20 6:00 AM Result Value Ref Range POCT GLU 186 (H) 70 - 110 mg/dL ABG+COOX+NA+K+GLU+CA2+ Collection Time: 01/12/20 7:19 AM Result Value Ref Range PH 7.45 7.35 - 7.45 PCO2 31 (L) 35 - 45 mmHg PO2 72 (L) 80 - 100 mmHg HCO3 21 (L) 22 - 26 mEq/L BE -2.3 -3.0 - 3.0 mEq/L THB 10.0 (L) 13.5 - 18.0 g/dL %O2HB 93.8 (L) 94.0 - 99.0 % %COHB ART 0.3 0.0 - 1.5 % %METHB ART 0.0 (L) 0.4 - 1.5 % VOL%O2 ART 13.3 (L) 15.0 - 23.0 % NA 140 135 - 145 mmol/L K+ 4.1 3.5 - 5.0 mmol/L AC CA IONZ 4.50 4.50 - 5.30 mg/dL GLUCOSE 152 (H) 70 - 110 mg/dL POCT GLUCOSE (AUTOMATED) Collection Time: 01/12/20 7:50 AM Result Value Ref Range POCT GLU 170 (H) 70 - 110 mg/dL BASIC METABOLIC PANEL (NA, K, CL, CO2, GLUCOSE, BUN, CREATININE, CA) Collection Time: 01/12/20 8:18 AM Result Value Ref Range NA 141 135 - 145 mmol/L K 4.0 3.5 - 5.0 mmol/L CL 107 98 - 108 mmol/L CO2 TOTAL 28 23 - 31 mmol/L AGAP 6 2 - 16 BUN 20 7 - 23 mg/dL GLUCOSE 156 (H) 70 - 110 mg/dL CREATININE 0.85 0.60 - 1.25 mg/dL CALCIUM 8.3 (L) 8.6 - 10.6 mg/dL eGFR Calculation (Non-) 88.4 mL/min/1.73m2 eGFR Calculation () 107.1 mL/min/1.73m2 MAGNESIUM Collection Time: 01/12/20 8:18 AM Result Value Ref Range MAGNESIUM 2.1 1.7 - 2.4 mg/dL PHOSPHORUS Collection Time: 01/12/20 8:18 AM Result Value Ref Range PHOSPHORUS 3.1 2.5 - 5.0 mg/dL PROFILE / HEMOGRAM Collection Time: 01/12/20 8:18 AM Result Value Ref Range WBC 9.64 4.20 - 10.70 10*3/L RBC 3.04 (L) 4.26 - 5.52 10*6/L HGB 9.5 (L) 12.2 - 16.4 g/dL HCT 28.1 (L) 38.4 - 49.3 % MCH 31.3 26.1 - 32.7 pg MCV 92.4 81.7 - 95.6 fL MCHC 33.8 31.2 - 35.0 g/dL PLT 125 (L) 150 - 328 10*3/L MPV 9.4 (L) 9.8 - 13.0 fL RDW-CV 15.7 (H) 12.1 - 15.4 % RDW-SD 52.5 (H) 38.5 - 51.6 fL NRBC x10^3 <0.01 10*3/L NRBC/100 WBC 0.0 0.0 - 10.0 /100 WBCs IPF % ABG+COOX+NA+K+GLU+CA2+ Collection Time: 01/12/20 8:56 AM Result Value Ref Range PH 7.44 7.35 - 7.45 PCO2 37 35 - 45 mmHg PO2 69 (L) 80 - 100 mmHg HCO3 24 22 - 26 mEq/L BE 0.2 -3.0 - 3.0 mEq/L THB 10.1 (L) 13.5 - 18.0 g/dL %O2HB 93.6 (L) 94.0 - 99.0 % %COHB ART 0.3 0.0 - 1.5 % %METHB ART 0.0 (L) 0.4 - 1.5 % VOL%O2 ART 13.4 (L) 15.0 - 23.0 % NA 140 135 - 145 mmol/L K+ 4.0 3.5 - 5.0 mmol/L AC CA IONZ 4.40 (L) 4.50 - 5.30 mg/dL GLUCOSE 160 (H) 70 - 110 mg/dL Xr Chest 1 Vw Result Date: 01/11/2020 Lines and tubes, as above.. Cardiomegaly with mild edema. Small left effusion. Patchy right basilar atelectasis versus infiltrate. Right upper lobe nodule measuring 9 mm, recommend comparison to prior exams. RL: [id number] Assessment/Plan: Juan Diego Damon is a 74 year old male Neuro: Sedation with propofol, will wean to assess mental status. Analgesia with PRN fentanyl. Weansedation for SBT. CV: Vasoplegic shock s/p CABG on epinephrine and dobutamine drips. Maintain MAP >65 and CI>2.Monitor PAP. Wean inotropes and pressors as tolerated CAD s/p CABG begin DAPT therapy. Respiratory: Acute post operative respirator insufficiency CXR reviewed no focal consolidations or infiltrates, ETT and chest tubes in position. Left sided small pleural effusion seen Now on vent SIMV, FiO2 55%, Vt 550 RR 16 and PEEP of 5, latest ABG reviewed shows an A-a gradient with stable pCO2 and pH Will wean vent today in anticipation of SBT and extubation. COPD not in exacerbation add PRN nebs JUANA highly suspected needs PSG as outpatient GI: No active issues : Hypomagnesemia repleted ID: On vancomycin for surgical ppx, allergic to PCN Heme: Acute blood loss anemia intra op s/p 2 U PRBC with appropriate response. On DAPT therapy. Endo: DM monitor sugar, begin insulin drip if glucose >200 MSK:No active issues Ventilator Bundle: Sedation/Analgesia + RASS: Propofol -2 Stress ulcer prophylaxis:PPI DVT prophylaxis: Heparin Nutrition:NPO Code status: Full Disposition: ICU Syeda Morse MD Critical care time 60 minutes, excluding procedures Luther Kunz MD - 01/12/2020 9:00 AM CDT [facility] Progress Note Luther Estes M.D. Subjective: Patient seen & examined. Events reviewed. Currently still intubated and sedated. Objective: Vitals: 01/12/20 0700 01/12/20 0733 01/12/20 0752 01/12/20 0800 BP: 120/55 124/56 Pulse: 94 93 93 Resp: 24 29 28 Temp: 36.6 C (97.9 F) 37.6 C (99.7 F) TempSrc: Core Core SpO2: 95% 95% 95% Weight: Height: General: Sedated HEENT: NC, AT, Neck: no JVD/lymphadenopathy CV: RRR, no murmurs, rubs, gallops Lungs: Mild rhonchi - on vent Abdomen: soft, NT, ND, (+)BS Skin: no rashes - Chest tubes in place, LLE dressing in place Extremities: no clubbing, cyanosis, edema Neuro: sedated Psych: sedated Labs: Recent Results (from the past 48 hour(s)) Type and Screen - Type and Screen expires at midnight on the 3rd day after it was drawn. A current Type and Screen is required when RBCs are requested. For all other blood products, a Type and Screen performed during the current hospitalization i... Collection Time: 01/10/20 3:33 PM Result Value Ref Range ABO & RH O Positive IAT Negative PROTHROMBIN TIME / INR Collection Time: 01/10/20 3:33 PM Result Value Ref Range PROTIME PATIENT 11.4 10.1 - 12.6 Seconds INR 1.0 COMP. METABOLIC PANEL (45891) Collection Time: 01/10/20 3:33 PM Result Value Ref Range NA 142 135 - 145 mmol/L K 4.1 3.5 - 5.0 mmol/L CL 104 98 - 108 mmol/L CO2 TOTAL 24 23 - 31 mmol/L AGAP 14 2 - 16 BUN 37 (H) 7 - 23 mg/dL GLUCOSE 115 (H) 70 - 110 mg/dL CREATININE 1.31 (H) 0.60 - 1.25 mg/dL TOTAL BILI 0.3 0.1 - 1.1 mg/dL CALCIUM 9.4 8.6 - 10.6 mg/dL T PROTEIN 8.0 6.3 - 8.2 g/dL ALBUMIN 4.4 3.5 - 5.0 g/dL ALK PHOS 112 34 - 122 U/L ALTv 17 5 - 50 U/L AST(SGOT) 30 13 - 40 U/L eGFR Calculation (Non-) 53.6 mL/min/1.73m2 eGFR Calculation () 65.0 mL/min/1.73m2 CBC WITH DIFFERENTIAL Collection Time: 01/10/20 3:33 PM Result Value Ref Range WBC 7.63 4.20 - 10.70 10*3/L RBC 4.42 4.26 - 5.52 10*6/L HGB 13.6 12.2 - 16.4 g/dL HCT 41.7 38.4 - 49.3 % MCV 94.3 81.7 - 95.6 fL MCH 30.8 26.1 - 32.7 pg MCHC 32.6 31.2 - 35.0 g/dL RDW-SD 50.6 38.5 - 51.6 fL RDW-CV 14.6 12.1 - 15.4 % PLT 257 150 - 328 10*3/L MPV 9.5 (L) 9.8 - 13.0 fL NRBC/100 WBC 0.0 0.0 - 10.0 /100 WBCs NRBC x10^3 <0.01 10*3/L GRAN MAT (NEUT) % 62.5 % IMM GRAN % 0.50 % LYMPH % 25.0 % MONO % 6.8 % EOS % 4.5 % BASO % 0.7 % GRAN MAT x10^3(ANC) 4.77 1.99 - 6.95 10*3/uL IMM GRAN x10^3 0.04 0.00 - 0.06 10*3/uL LYMPH x10^3 1.91 1.09 - 3.23 10*3/uL MONO x10^3 0.52 0.36 - 1.02 10*3/uL EOS x10^3 0.34 0.06 - 0.53 10*3/uL BASO x10^3 0.05 0.01 - 0.09 10*3/uL ABORH CONFIRMATION Collection Time: 01/10/20 4:25 PM Result Value Ref Range ABO & RH O Positive POCT GLUCOSE (AUTOMATED) Collection Time: 01/10/20 5:08 PM Result Value Ref Range POCT GLU 101 70 - 110 mg/dL POCT GLUCOSE (AUTOMATED) Collection Time: 01/10/20 8:37 PM Result Value Ref Range POCT GLU 196 (H) 70 - 110 mg/dL POCT GLUCOSE (AUTOMATED) Collection Time: 01/11/20 5:31 AM Result Value Ref Range POCT GLU 128 (H) 70 - 110 mg/dL Prepare Packed RBC (in units), 2 Units Collection Time: 01/11/20 6:23 AM Result Value Ref Range Cross Match Result Compatible ISBT Blood Type Code 5100 Unit Blood Type O Pos Unit Number [id number] Blood Expiration Date & Time [id number] Status Information Issued Product Identification Red Blood Cells Product Code [id number] Cross Match Result Compatible ISBT Blood Type Code 5100 Unit Blood Type O Pos Unit Number [id number] Blood Expiration Date & Time [id number] Status Information Issued Product Identification Red Blood Cells Product Code [id number] POCT ACT HIGH RANGE Collection Time: 01/11/20 8:14 AM Result Value Ref Range ACTHR 92 (L) 96 - 152 Seconds ISTAT ACUTE CARE ARTERIAL Collection Time: 01/11/20 8:17 AM Result Value Ref Range PH 7.27 (L) 7.35 - 7.45 PCO2 56 (H) 35 - 45 mmHg PO2 390 (H) 80 - 100 mmHg BE -1.0 -3.0 - 3.0 mEq/L HCO3 26 22 - 26 mEq/L %O2HB 100.0 (H) 95.0 - 98.0 % NA 140 135 - 145 mmol/L K+ 4.2 3.5 - 5.0 mmol/L AC CA IONZ 4.80 4.50 - 5.30 mg/dL GLUCOSE 172 (H) 70 - 110 mg/dL AC Hematocrit 33 (L) 40 - 54 VOL % THB 11.2 (L) 13.5 - 18.0 g/dL AC TC02 27 23-27 mmol/L mmol/L ISTAT ACUTE CARE ARTERIAL Collection Time: 01/11/20 8:47 AM Result Value Ref Range PH 7.17 (LL) 7.35 - 7.45 PCO2 70 (H) 35 - 45 mmHg PO2 421 (H) 80 - 100 mmHg BE -3.0 -3.0 - 3.0 mEq/L HCO3 26 22 - 26 mEq/L %O2HB 100.0 (H) 95.0 - 98.0 % NA 141 135 - 145 mmol/L K+ 3.8 3.5 - 5.0 mmol/L AC CA IONZ 4.80 4.50 - 5.30 mg/dL GLUCOSE 162 (H) 70 - 110 mg/dL AC Hematocrit 32 (L) 40 - 54 VOL % THB 10.9 (L) 13.5 - 18.0 g/dL AC TC02 28 (H) 23-27 mmol/L mmol/L POCT ACT HIGH RANGE Collection Time: 01/11/20 9:07 AM Result Value Ref Range ACTHR 660 (H) 96 - 152 Seconds POCT ACT HIGH RANGE Collection Time: 01/11/20 9:27 AM Result Value Ref Range ACTHR 751 (H) 96 - 152 Seconds ISTAT ACUTE CARE ARTERIAL Collection Time: 01/11/20 9:30 AM Result Value Ref Range PH 7.22 (L) 7.35 - 7.45 PCO2 63 (H) 35 - 45 mmHg PO2 483 (H) 80 - 100 mmHg BE -2.0 -3.0 - 3.0 mEq/L HCO3 26 22 - 26 mEq/L %O2HB 100.0 (H) 95.0 - 98.0 % NA 138 135 - 145 mmol/L K+ 4.4 3.5 - 5.0 mmol/L AC CA IONZ 3.80 (L) 4.50 - 5.30 mg/dL GLUCOSE 192 (H) 70 - 110 mg/dL AC Hematocrit 26 (L) 40 - 54 VOL % THB 8.8 (L) 13.5 - 18.0 g/dL AC TC02 28 (H) 23-27 mmol/L mmol/L POCT ACT HIGH RANGE Collection Time: 01/11/20 9:49 AM Result Value Ref Range ACTHR 718 (H) 96 - 152 Seconds ISTAT ACUTE CARE ARTERIAL Collection Time: 01/11/20 9:52 AM Result Value Ref Range PH 7.32 (L) 7.35 - 7.45 PCO2 50 (H) 35 - 45 mmHg PO2 350 (H) 80 - 100 mmHg BE -1.0 -3.0 - 3.0 mEq/L HCO3 26 22 - 26 mEq/L %O2HB 100.0 (H) 95.0 - 98.0 % NA 138 135 - 145 mmol/L K+ 4.8 3.5 - 5.0 mmol/L AC CA IONZ 4.00 (L) 4.50 - 5.30 mg/dL GLUCOSE 201 (H) 70 - 110 mg/dL AC Hematocrit 26 (L) 40 - 54 VOL % THB 8.8 (L) 13.5 - 18.0 g/dL AC TC02 27 23-27 mmol/L mmol/L POCT ACT HIGH RANGE Collection Time: 01/11/20 10:19 AM Result Value Ref Range ACTHR 651 (H) 96 - 152 [facility] Collection Time: 01/11/20 10:22 AM Result Value Ref Range PH 7.39 7.35 - 7.45 PCO2 46 (H) 35 - 45 mmHg PO2 326 (H) 80 - 100 mmHg BE 3.0 -3.0 - 3.0 mEq/L HCO3 28 (H) 22 - 26 mEq/L %O2HB 100.0 (H) 95.0 - 98.0 % NA 139 135 - 145 mmol/L K+ 5.6 (H) 3.5 - 5.0 mmol/L AC CA IONZ 3.80 (L) 4.50 - 5.30 mg/dL GLUCOSE 216 (H) 70 - 110 mg/dL AC Hematocrit 24 (LL) 40 - 54 VOL % THB 8.2 (LL) 13.5 - 18.0 g/dL AC TC02 29 (H) 23-27 mmol/L mmol/L POCT ACT HIGH RANGE Collection Time: 01/11/20 10:43 AM Result Value Ref Range ACTHR 549 (H) 96 - 152 Seconds [facility] ARTERIAL Collection Time: 01/11/20 10:46 AM Result Value Ref Range PH 7.42 7.35 - 7.45 PCO2 43 35 - 45 mmHg PO2 344 (H) 80 - 100 mmHg BE 4.0 (H) -3.0 - 3.0 mEq/L HCO3 28 (H) 22 - 26 mEq/L %O2HB 100.0 (H) 95.0 - 98.0 % NA 138 135 - 145 mmol/L K+ 6.0 (H) 3.5 - 5.0 mmol/L AC CA IONZ 3.80 (L) 4.50 - 5.30 mg/dL GLUCOSE 225 (H) 70 - 110 mg/dL AC Hematocrit 25 (LL) 40 - 54 VOL % THB 8.5 (L) 13.5 - 18.0 g/dL AC TC02 30 (H) 23-27 mmol/L mmol/L POCT ACT HIGH RANGE Collection Time: 01/11/20 11:13 AM Result Value Ref Range ACTHR 541 (H) 96 - 152 Seconds [facility] ARTERIAL Collection Time: 01/11/20 11:16 AM Result Value Ref Range PH 7.44 7.35 - 7.45 PCO2 41 35 - 45 mmHg PO2 398 (H) 80 - 100 mmHg BE 4.0 (H) -3.0 - 3.0 mEq/L HCO3 28 (H) 22 - 26 mEq/L %O2HB 100.0 (H) 95.0 - 98.0 % NA 141 135 - 145 mmol/L K+ 5.3 (H) 3.5 - 5.0 mmol/L AC CA IONZ 3.80 (L) 4.50 - 5.30 mg/dL GLUCOSE 192 (H) 70 - 110 mg/dL AC Hematocrit 25 (LL) 40 - 54 VOL % THB 8.5 (L) 13.5 - 18.0 g/dL AC TC02 29 (H) 23-27 mmol/L mmol/L POCT ACT HIGH RANGE Collection Time: 01/11/20 11:42 AM Result Value Ref Range ACTHR 436 (H) 96 - 152 Seconds [facility] ARTERIAL Collection Time: 01/11/20 11:45 AM Result Value Ref Range PH 7.45 7.35 - 7.45 PCO2 40 35 - 45 mmHg PO2 388 (H) 80 - 100 mmHg BE 4.0 (H) -3.0 - 3.0 mEq/L HCO3 28 (H) 22 - 26 mEq/L %O2HB 100.0 (H) 95.0 - 98.0 % NA 141 135 - 145 mmol/L K+ 5.4 (H) 3.5 - 5.0 mmol/L AC CA IONZ 3.80 (L) 4.50 - 5.30 mg/dL GLUCOSE 175 (H) 70 - 110 mg/dL AC Hematocrit 25 (LL) 40 - 54 VOL % THB 8.5 (L) 13.5 - 18.0 g/dL AC TC02 29 (H) 23-27 mmol/L mmol/L POCT ACT HIGH RANGE Collection Time: 01/11/20 12:13 PM Result Value Ref Range ACTHR 433 (H) 96 - 152 Seconds [facility] ARTERIAL Collection Time: 01/11/20 12:17 PM Result Value Ref Range PH 7.40 7.35 - 7.45 PCO2 42 35 - 45 mmHg PO2 383 (H) 80 - 100 mmHg BE 1.0 -3.0 - 3.0 mEq/L HCO3 26 22 - 26 mEq/L %O2HB 100.0 (H) 95.0 - 98.0 % NA 142 135 - 145 mmol/L K+ 5.4 (H) 3.5 - 5.0 mmol/L AC CA IONZ 3.70 (L) 4.50 - 5.30 mg/dL GLUCOSE 173 (H) 70 - 110 mg/dL AC Hematocrit 23 (LL) 40 - 54 VOL % THB 7.8 (LL) 13.5 - 18.0 g/dL AC TC02 27 23-27 mmol/L mmol/L aPTT Collection Time: 01/11/20 1:00 PM Result Value Ref Range APTT Patient 34 26 - 36 Seconds FIBRINOGEN Collection Time: 01/11/20 1:00 PM Result Value Ref Range Fibrinogen 224 167 - 453 mg/dL PROTHROMBIN TIME / INR Collection Time: 01/11/20 1:00 PM Result Value Ref Range PROTIME PATIENT 15.1 (H) 10.1 - 12.6 Seconds INR 1.4 HEMATOCRIT Collection Time: 01/11/20 1:12 PM Result Value Ref Range HCT 24.1 (L) 38.4 - 49.3 % HEMOGLOBIN Collection Time: 01/11/20 1:12 PM Result Value Ref Range HGB 8.1 (L) 12.2 - 16.4 g/dL PLATELET COUNT Collection Time: 01/11/20 1:12 PM Result Value Ref Range PLT 161 150 - 328 10*3/L [facility] Collection Time: 01/11/20 1:13 PM Result Value Ref Range PH 7.20 (L) 7.35 - 7.45 PCO2 7 (L) 35 - 45 mmHg PO2 205 (H) 80 - 100 mmHg BE -25.0 (L) -3.0 - 3.0 mEq/L HCO3 3 (L) 22 - 26 mEq/L %O2HB 100.0 (H) 95.0 - 98.0 % NA 160 (H) 135 - 145 mmol/L K+ <2.0 (LL) 3.5 - 5.0 mmol/L AC CA IONZ <1.00 (LL) 4.50 - 5.30 mg/dL GLUCOSE 24 (LL) 70 - 110 mg/dL AC Hematocrit 55 (H) 40 - 54 VOL % THB 18.7 (H) 13.5 - 18.0 g/dL AC TC02 <5 (L) 23-27 mmol/L mmol/L POCT ACT HIGH RANGE Collection Time: 01/11/20 1:14 PM Result Value Ref Range ACTHR 106 96 - 152 Seconds [facility] ARTERIAL Collection Time: 01/11/20 2:07 PM Result Value Ref Range PH 7.30 (L) 7.35 - 7.45 PCO2 51 (H) 35 - 45 mmHg PO2 243 (H) 80 - 100 mmHg BE -2.0 -3.0 - 3.0 mEq/L HCO3 25 22 - 26 mEq/L %O2HB 100.0 (H) 95.0 - 98.0 % NA 143 135 - 145 mmol/L K+ 4.3 3.5 - 5.0 mmol/L AC CA IONZ 4.00 (L) 4.50 - 5.30 mg/dL GLUCOSE 142 (H) 70 - 110 mg/dL AC Hematocrit 21 (LL) 40 - 54 VOL % THB 7.1 (LL) 13.5 - 18.0 g/dL AC TC02 26 23-27 mmol/L mmol/L ABG+COOX+NA+K+GLU+CA2+ Collection Time: 01/11/20 3:22 PM Result Value Ref Range PH 7.23 (L) 7.35 - 7.45 PCO2 43 35 - 45 mmHg PO2 94 80 - 100 mmHg HCO3 18 (L) 22 - 26 mEq/L BE -9.4 (L) -3.0 - 3.0 mEq/L THB 10.7 (L) 13.5 - 18.0 g/dL %O2HB 94.8 94.0 - 99.0 % %COHB ART 0.7 0.0 - 1.5 % %METHB ART 0.1 (L) 0.4 - 1.5 % VOL%O2 ART 14.4 (L) 15.0 - 23.0 % NA 139 135 - 145 mmol/L K+ 4.8 3.5 - 5.0 mmol/L AC CA IONZ 4.40 (L) 4.50 - 5.30 mg/dL GLUCOSE 114 (H) 70 - 110 mg/dL CBC WITH DIFFERENTIAL Collection Time: 01/11/20 3:23 PM Result Value Ref Range WBC 14.96 (H) 4.20 - 10.70 10*3/L RBC 3.42 (L) 4.26 - 5.52 10*6/L HGB 10.3 (L) 12.2 - 16.4 g/dL HCT 31.0 (L) 38.4 - 49.3 % MCV 90.6 81.7 - 95.6 fL MCH 30.1 26.1 - 32.7 pg MCHC 33.2 31.2 - 35.0 g/dL RDW-SD 49.0 38.5 - 51.6 fL RDW-CV 14.9 12.1 - 15.4 % PLT 164 150 - 328 10*3/L MPV 9.5 (L) 9.8 - 13.0 fL NRBC/100 WBC 0.0 0.0 - 10.0 /100 WBCs NRBC x10^3 <0.01 10*3/L GRAN MAT (NEUT) % 76.3 % IMM GRAN % 1.80 % LYMPH % 8.0 % MONO % 13.5 % EOS % 0.2 % BASO % 0.2 % GRAN MAT x10^3(ANC) 11.42 (H) 1.99 - 6.95 10*3/uL IMM GRAN x10^3 0.27 (H) 0.00 - 0.06 10*3/uL LYMPH x10^3 1.19 1.09 - 3.23 10*3/uL MONO x10^3 2.02 (H) 0.36 - 1.02 10*3/uL EOS x10^3 0.03 (L) 0.06 - 0.53 10*3/uL BASO x10^3 0.03 0.01 - 0.09 10*3/uL BASO STIPPLING Present (A) BANDS Increased (A) TOXIC CHANGES Present (A) Basic Metabolic Panel (NA, K, CL, CO2, GLUCOSE, BUN, CREATININE, CA) Collection Time: 01/11/20 3:24 PM Result Value Ref Range NA 139 135 - 145 mmol/L K 4.8 3.5 - 5.0 mmol/L CL 109 (H) 98 - 108 mmol/L CO2 TOTAL 23 23 - 31 mmol/L AGAP 7 2 - 16 BUN 24 (H) 7 - 23 mg/dL GLUCOSE 128 (H) 70 - 110 mg/dL CREATININE 0.79 0.60 - 1.25 mg/dL CALCIUM 6.8 (L) 8.6 - 10.6 mg/dL eGFR Calculation (Non-) 96.1 mL/min/1.73m2 eGFR Calculation () 116.5 mL/min/1.73m2 MAGNESIUM Collection Time: 01/11/20 3:24 PM Result Value Ref Range MAGNESIUM 1.5 (L) 1.7 - 2.4 mg/dL PHOSPHORUS Collection Time: 01/11/20 3:24 PM Result Value Ref Range PHOSPHORUS 2.8 2.5 - 5.0 mg/dL PROTHROMBIN TIME / INR Collection Time: 01/11/20 3:24 PM Result Value Ref Range PROTIME PATIENT 14.7 (H) 10.1 - 12.6 Seconds INR 1.3 aPTT Collection Time: 01/11/20 3:24 PM Result Value Ref Range APTT Patient 38 (H) 26 - 36 Seconds ABG+COOX+NA+K+GLU+CA2+ Collection Time: 01/11/20 4:24 PM Result Value Ref Range PH 7.33 (L) 7.35 - 7.45 PCO2 50 (H) 35 - 45 mmHg PO2 85 80 - 100 mmHg HCO3 26 22 - 26 mEq/L BE -0.4 -3.0 - 3.0 mEq/L THB 11.1 (L) 13.5 - 18.0 g/dL %O2HB 94.9 94.0 - 99.0 % %COHB ART 1.0 0.0 - 1.5 % %METHB ART 0.3 (L) 0.4 - 1.5 % VOL%O2 ART 14.9 (L) 15.0 - 23.0 % NA 139 135 - 145 mmol/L K+ 4.3 3.5 - 5.0 mmol/L AC CA IONZ 5.30 4.50 - 5.30 mg/dL GLUCOSE 157 (H) 70 - 110 mg/dL POCT GLUCOSE (AUTOMATED) Collection Time: 01/11/20 4:31 PM Result Value Ref Range POCT GLU 159 (H) 70 - 110 mg/dL POCT GLUCOSE (AUTOMATED) Collection Time: 01/11/20 5:43 PM Result Value Ref Range POCT GLU 179 (H) 70 - 110 mg/dL ABG+COOX+NA+K+GLU+CA2+ Collection Time: 01/11/20 6:06 PM Result Value Ref Range PH 7.36 7.35 - 7.45 PCO2 45 35 - 45 mmHg PO2 83 80 - 100 mmHg HCO3 25 22 - 26 mEq/L BE -1.1 -3.0 - 3.0 mEq/L THB 11.1 (L) 13.5 - 18.0 g/dL %O2HB 94.8 94.0 - 99.0 % %COHB ART 0.8 0.0 - 1.5 % %METHB ART 0.2 (L) 0.4 - 1.5 % VOL%O2 ART 14.9 (L) 15.0 - 23.0 % NA 139 135 - 145 mmol/L K+ 4.3 3.5 - 5.0 mmol/L AC CA IONZ 5.00 4.50 - 5.30 mg/dL GLUCOSE 186 (H) 70 - 110 mg/dL POCT GLUCOSE (AUTOMATED) Collection Time: 01/11/20 6:25 PM Result Value Ref Range POCT GLU 195 (H) 70 - 110 mg/dL POCT GLUCOSE (AUTOMATED) Collection Time: 01/11/20 7:07 PM Result Value Ref Range POCT GLU 211 (H) 70 - 110 mg/dL AC PANEL 20 + LACTIC ACID Collection Time: 01/11/20 7:59 PM Result Value Ref Range PH 7.38 7.35 - 7.45 PCO2 40 35 - 45 mmHg PO2 90 80 - 100 mmHg HCO3 23 22 - 26 mEq/L BE -1.8 -3.0 - 3.0 mEq/L THB 10.5 (L) 13.5 - 18.0 g/dL %O2HB 95.7 94.0 - 99.0 % %COHB ART 0.7 0.0 - 1.5 % %METHB ART 0.2 (L) 0.4 - 1.5 % VOL%O2 ART 14.2 (L) 15.0 - 23.0 % NA 139 135 - 145 mmol/L K+ 4.5 3.5 - 5.0 mmol/L AC CA IONZ 4.80 4.50 - 5.30 mg/dL GLUCOSE 215 (H) 70 - 110 mg/dL LACTIC ACID 1.45 0.50 - 2.20 mmol/L BASIC METABOLIC PANEL (NA, K, CL, CO2, GLUCOSE, BUN, CREATININE, CA) Collection Time: 01/11/20 7:59 PM Result Value Ref Range NA 139 135 - 145 mmol/L K 4.5 3.5 - 5.0 mmol/L CL 107 98 - 108 mmol/L CO2 TOTAL 23 23 - 31 mmol/L AGAP 9 2 - 16 BUN 22 7 - 23 mg/dL GLUCOSE 201 (H) 70 - 110 mg/dL CREATININE 0.83 0.60 - 1.25 mg/dL CALCIUM 8.8 8.6 - 10.6 mg/dL eGFR Calculation (Non-) 90.8 mL/min/1.73m2 eGFR Calculation () 110.1 mL/min/1.73m2 MAGNESIUM Collection Time: 01/11/20 7:59 PM Result Value Ref Range MAGNESIUM 1.6 (L) 1.7 - 2.4 mg/dL CBC WITH DIFFERENTIAL Collection Time: 01/11/20 7:59 PM Result Value Ref Range WBC 12.61 (H) 4.20 - 10.70 10*3/L RBC 3.22 (L) 4.26 - 5.52 10*6/L HGB 10.1 (L) 12.2 - 16.4 g/dL HCT 29.4 (L) 38.4 - 49.3 % MCV 91.3 81.7 - 95.6 fL MCH 31.4 26.1 - 32.7 pg MCHC 34.4 31.2 - 35.0 g/dL RDW-SD 49.5 38.5 - 51.6 fL RDW-CV 15.2 12.1 - 15.4 % PLT 158 150 - 328 10*3/L MPV 9.5 (L) 9.8 - 13.0 fL NRBC/100 WBC 0.0 0.0 - 10.0 /100 WBCs NRBC x10^3 <0.01 10*3/L GRAN MAT (NEUT) % 87.4 % IMM GRAN % 0.70 % LYMPH % 4.0 % MONO % 7.7 % EOS % 0.0 % BASO % 0.2 % GRAN MAT x10^3(ANC) 11.02 (H) 1.99 - 6.95 10*3/uL IMM GRAN x10^3 0.09 (H) 0.00 - 0.06 10*3/uL LYMPH x10^3 0.50 (L) 1.09 - 3.23 10*3/uL MONO x10^3 0.97 0.36 - 1.02 10*3/uL EOS x10^3 <0.03 (L) 0.06 - 0.53 10*3/uL BASO x10^3 0.03 0.01 - 0.09 10*3/uL POCT GLUCOSE (AUTOMATED) Collection Time: 01/11/20 9:10 PM Result Value Ref Range POCT GLU 236 (H) 70 - 110 mg/dL POCT GLUCOSE (AUTOMATED) Collection Time: 01/11/20 10:02 PM Result Value Ref Range POCT GLU 227 (H) 70 - 110 mg/dL AC PANEL 20 + LACTIC ACID Collection Time: 01/11/20 10:19 PM Result Value Ref Range PH 7.40 7.35 - 7.45 PCO2 35 35 - 45 mmHg PO2 86 80 - 100 mmHg HCO3 21 (L) 22 - 26 mEq/L BE -2.8 -3.0 - 3.0 mEq/L THB 13.3 (L) 13.5 - 18.0 g/dL %O2HB 95.1 94.0 - 99.0 % %COHB ART 0.9 0.0 - 1.5 % %METHB ART 0.2 (L) 0.4 - 1.5 % VOL%O2 ART 17.8 15.0 - 23.0 % NA 138 135 - 145 mmol/L K+ 4.2 3.5 - 5.0 mmol/L AC CA IONZ 4.80 4.50 - 5.30 mg/dL GLUCOSE 216 (H) 70 - 110 mg/dL LACTIC ACID 1.98 0.50 - 2.20 mmol/L POCT GLUCOSE (AUTOMATED) Collection Time: 01/11/20 11:20 PM Result Value Ref Range POCT GLU 219 (H) 70 - 110 mg/dL AC PANEL 20 + LACTIC ACID Collection Time: 01/12/20 12:13 AM Result Value Ref Range PH 7.43 7.35 - 7.45 PCO2 30 (L) 35 - 45 mmHg PO2 74 (L) 80 - 100 mmHg HCO3 19 (L) 22 - 26 mEq/L BE -4.2 (L) -3.0 - 3.0 mEq/L THB 11.0 (L) 13.5 - 18.0 g/dL %O2HB 94.1 94.0 - 99.0 % %COHB ART 0.6 0.0 - 1.5 % %METHB ART 0.1 (L) 0.4 - 1.5 % VOL%O2 ART 14.6 (L) 15.0 - 23.0 % NA 138 135 - 145 mmol/L K+ 4.0 3.5 - 5.0 mmol/L AC CA IONZ 4.60 4.50 - 5.30 mg/dL GLUCOSE 182 (H) 70 - 110 mg/dL LACTIC ACID 2.44 0.50 - 2.20 mmol/L BASIC METABOLIC PANEL (NA, K, CL, CO2, GLUCOSE, BUN, CREATININE, CA) Collection Time: 01/12/20 12:14 AM Result Value Ref Range NA 140 135 - 145 mmol/L K 4.0 3.5 - 5.0 mmol/L CL 107 98 - 108 mmol/L CO2 TOTAL 22 (L) 23 - 31 mmol/L AGAP 11 2 - 16 BUN 22 7 - 23 mg/dL GLUCOSE 185 (H) 70 - 110 mg/dL CREATININE 0.89 0.60 - 1.25 mg/dL CALCIUM 8.7 8.6 - 10.6 mg/dL eGFR Calculation (Non-) 83.8 mL/min/1.73m2 eGFR Calculation () 101.6 mL/min/1.73m2 MAGNESIUM Collection Time: 01/12/20 12:14 AM Result Value Ref Range MAGNESIUM 1.9 1.7 - 2.4 mg/dL CBC WITH DIFFERENTIAL Collection Time: 01/12/20 12:14 AM Result Value Ref Range WBC 10.94 (H) 4.20 - 10.70 10*3/L RBC 3.26 (L) 4.26 - 5.52 10*6/L HGB 10.2 (L) 12.2 - 16.4 g/dL HCT 29.6 (L) 38.4 - 49.3 % MCV 90.8 81.7 - 95.6 fL MCH 31.3 26.1 - 32.7 pg MCHC 34.5 31.2 - 35.0 g/dL RDW-SD 50.3 38.5 - 51.6 fL RDW-CV 15.3 12.1 - 15.4 % PLT 162 150 - 328 10*3/L MPV 9.6 (L) 9.8 - 13.0 fL NRBC/100 WBC 0.0 0.0 - 10.0 /100 WBCs NRBC x10^3 <0.01 10*3/L GRAN MAT (NEUT) % 82.9 % IMM GRAN % 0.70 % LYMPH % 6.9 % MONO % 9.0 % EOS % 0.1 % BASO % 0.4 % GRAN MAT x10^3(ANC) 9.07 (H) 1.99 - 6.95 10*3/uL IMM GRAN x10^3 0.08 (H) 0.00 - 0.06 10*3/uL LYMPH x10^3 0.76 (L) 1.09 - 3.23 10*3/uL MONO x10^3 0.98 0.36 - 1.02 10*3/uL EOS x10^3 <0.03 (L) 0.06 - 0.53 10*3/uL BASO x10^3 0.04 0.01 - 0.09 10*3/uL POCT GLUCOSE (AUTOMATED) Collection Time: 01/12/20 2:05 AM Result Value Ref Range POCT GLU 184 (H) 70 - 110 mg/dL ABG+COOX+NA+K+GLU+CA2+ Collection Time: 01/12/20 4:05 AM Result Value Ref Range PH 7.40 7.35 - 7.45 PCO2 39 35 - 45 mmHg PO2 72 (L) 80 - 100 mmHg HCO3 24 22 - 26 mEq/L BE -1.0 -3.0 - 3.0 mEq/L THB 16.9 13.5 - 18.0 g/dL %O2HB 93.9 (L) 94.0 - 99.0 % %COHB ART 1.2 0.0 - 1.5 % %METHB ART 0.2 (L) 0.4 - 1.5 % VOL%O2 ART 22.3 15.0 - 23.0 % NA 141 135 - 145 mmol/L K+ 4.0 3.5 - 5.0 mmol/L AC CA IONZ 4.80 4.50 - 5.30 mg/dL GLUCOSE 172 (H) 70 - 110 mg/dL Basic Metabolic Panel (NA, K, CL, CO2, GLUCOSE, BUN, CREATININE, CA) Collection Time: 01/12/20 4:05 AM Result Value Ref Range NA 140 135 - 145 mmol/L K 4.0 3.5 - 5.0 mmol/L CL 106 98 - 108 mmol/L CO2 TOTAL 25 23 - 31 mmol/L AGAP 9 2 - 16 BUN 22 7 - 23 mg/dL GLUCOSE 162 (H) 70 - 110 mg/dL CREATININE 0.86 0.60 - 1.25 mg/dL CALCIUM 8.0 (L) 8.6 - 10.6 mg/dL eGFR Calculation (Non-) 87.2 mL/min/1.73m2 eGFR Calculation () 105.7 mL/min/1.73m2 CBC WITH DIFFERENTIAL Collection Time: 01/12/20 4:05 AM Result Value Ref Range WBC 9.71 4.20 - 10.70 10*3/L RBC 3.04 (L) 4.26 - 5.52 10*6/L HGB 9.5 (L) 12.2 - 16.4 g/dL HCT 27.6 (L) 38.4 - 49.3 % MCV 90.8 81.7 - 95.6 fL MCH 31.3 26.1 - 32.7 pg MCHC 34.4 31.2 - 35.0 g/dL RDW-SD 50.4 38.5 - 51.6 fL RDW-CV 15.6 (H) 12.1 - 15.4 % PLT 141 (L) 150 - 328 10*3/L MPV 9.4 (L) 9.8 - 13.0 fL NRBC/100 WBC 0.0 0.0 - 10.0 /100 WBCs NRBC x10^3 <0.01 10*3/L GRAN MAT (NEUT) % 78.0 % IMM GRAN % 0.60 % LYMPH % 10.0 % MONO % 11.0 % EOS % 0.1 % BASO % 0.3 % GRAN MAT x10^3(ANC) 7.57 (H) 1.99 - 6.95 10*3/uL IMM GRAN x10^3 0.06 0.00 - 0.06 10*3/uL LYMPH x10^3 0.97 (L) 1.09 - 3.23 10*3/uL MONO x10^3 1.07 (H) 0.36 - 1.02 10*3/uL EOS x10^3 <0.03 (L) 0.06 - 0.53 10*3/uL BASO x10^3 0.03 0.01 - 0.09 10*3/uL AC PANEL 21 + LACTIC ACID Collection Time: 01/12/20 4:05 AM Result Value Ref Range PH 7.40 7.32 - 7.42 PCO2 EMELY 42 41 - 51 mmHg PO2 EMELY 29 25 - 40 mmHg HCO3 EMELY 25 24 - 28 mEq/L AC VBE(BEAKER) -0.1 mEq/L THB EMELY 9.9 (L) 13.5 - 18.0 g/dL %O2HB EMELY 58.5 52.0 - 63.0 % %COHB EMELY 0.6 0.0 - 1.5 % %METHB EMELY 0.0 (L) 0.4 - 1.5 % VOL%O2 EMELY 8.1 6.0 - 12.0 % NA 142 135 - 145 mmol/L K+ 4.0 3.5 - 5.0 mmol/L AC CA IONZ 4.60 4.50 - 5.30 mg/dL GLUCOSE 170 (H) 70 - 110 mg/dL LACTIC ACID 2.20 0.50 - 2.20 mmol/L MAGNESIUM Collection Time: 01/12/20 4:05 AM Result Value Ref Range MAGNESIUM 2.3 1.7 - 2.4 mg/dL POCT GLUCOSE (AUTOMATED) Collection Time: 01/12/20 4:11 AM Result Value Ref Range POCT GLU 170 (H) 70 - 110 mg/dL POCT GLUCOSE (AUTOMATED) Collection Time: 01/12/20 6:00 AM Result Value Ref Range POCT GLU 186 (H) 70 - 110 mg/dL ABG+COOX+NA+K+GLU+CA2+ Collection Time: 01/12/20 7:19 AM Result Value Ref Range PH 7.45 7.35 - 7.45 PCO2 31 (L) 35 - 45 mmHg PO2 72 (L) 80 - 100 mmHg HCO3 21 (L) 22 - 26 mEq/L BE -2.3 -3.0 - 3.0 mEq/L THB 10.0 (L) 13.5 - 18.0 g/dL %O2HB 93.8 (L) 94.0 - 99.0 % %COHB ART 0.3 0.0 - 1.5 % %METHB ART 0.0 (L) 0.4 - 1.5 % VOL%O2 ART 13.3 (L) 15.0 - 23.0 % NA 140 135 - 145 mmol/L K+ 4.1 3.5 - 5.0 mmol/L AC CA IONZ 4.50 4.50 - 5.30 mg/dL GLUCOSE 152 (H) 70 - 110 mg/dL POCT GLUCOSE (AUTOMATED) Collection Time: 01/12/20 7:50 AM Result Value Ref Range POCT GLU 170 (H) 70 - 110 mg/dL BASIC METABOLIC PANEL (NA, K, CL, CO2, GLUCOSE, BUN, CREATININE, CA) Collection Time: 01/12/20 8:18 AM Result Value Ref Range NA 141 135 - 145 mmol/L K 4.0 3.5 - 5.0 mmol/L CL 107 98 - 108 mmol/L CO2 TOTAL 28 23 - 31 mmol/L AGAP 6 2 - 16 BUN 20 7 - 23 mg/dL GLUCOSE 156 (H) 70 - 110 mg/dL CREATININE 0.85 0.60 - 1.25 mg/dL CALCIUM 8.3 (L) 8.6 - 10.6 mg/dL eGFR Calculation (Non-) 88.4 mL/min/1.73m2 eGFR Calculation () 107.1 mL/min/1.73m2 MAGNESIUM Collection Time: 01/12/20 8:18 AM Result Value Ref Range MAGNESIUM 2.1 1.7 - 2.4 mg/dL PHOSPHORUS Collection Time: 01/12/20 8:18 AM Result Value Ref Range PHOSPHORUS 3.1 2.5 - 5.0 mg/dL PROFILE / HEMOGRAM Collection Time: 01/12/20 8:18 AM Result Value Ref Range WBC 9.64 4.20 - 10.70 10*3/L RBC 3.04 (L) 4.26 - 5.52 10*6/L HGB 9.5 (L) 12.2 - 16.4 g/dL HCT 28.1 (L) 38.4 - 49.3 % MCH 31.3 26.1 - 32.7 pg MCV 92.4 81.7 - 95.6 fL MCHC 33.8 31.2 - 35.0 g/dL PLT 125 (L) 150 - 328 10*3/L MPV 9.4 (L) 9.8 - 13.0 fL RDW-CV 15.7 (H) 12.1 - 15.4 % RDW-SD 52.5 (H) 38.5 - 51.6 fL NRBC x10^3 <0.01 10*3/L NRBC/100 WBC 0.0 0.0 - 10.0 /100 WBCs IPF % Current Facility-Administered Medications: FENTanyl PF (SUBLIMAZE (PF)) injection 50 mcg, 50 mcg, Slow IV Push, Q3HPRN x 24 Hours, Bhavani Albarado MD, 50 mcg at 01/12/20 0810 acetaminophen (TYLENOL) suppository 650 mg, 650 mg, Rectal, Q6HPRN, Syeda Morse MD acetaminophen (TYLENOL) tablet 650 mg, 650 mg, Oral, Q6HPRN, Syeda Morse MD aspirin tablet 325 mg, 325 mg, Oral, DAILY, Syeda Morse MD, 325 mg at 01/11/20 2121 cardioplegic (PLEGISOL) perfusion solution, , , PRN, Isidro Pulido MD, 1, 000 mL at 01/11/20 0811 clopidogreL (PLAVIX) tablet 75 mg, 75 mg, Oral, DAILY, Syeda Morse MD D5W-LR IV infusion 1,000 mL, 1,000 mL, IV Infusion, CONTINUOUS, Syeda Morse MD, Stopped at 01/11/20 1828 dextrose 50 % in water (D50W) injection 25 mL, 25 mL, Slow IV Push, PRN, Syeda Morse MD DOBUTamine (DOBUTREX) 500 mg in 250 mL (Fixed Dose) D5W infusion RTU, 2.5- 20 mcg/kg/min, IV Infusion, TITRATE, Syeda Morse MD, Last Rate: 16.76 mL/ hr at 01/12/20 0712, 5 mcg/kg/min at 01/12/20 0712 docusate (COLACE) capsule 100 mg, 100 mg, Oral, DAILY, Syeda Morse MD EPINEPHrine HCl in 0.9 % NaCl 4 mg/250 mL (16 mcg/mL) infusion RTU, 0.01- 0.7 mcg/kg/min, IV Infusion, TITRATE, Syeda Morse MD, Last Rate: 12.57 mL /hr at 01/12/20 0851, 0.03 mcg/kg/min at 01/12/20 0851 epoprostenol (FLOLAN) 500 mcg in sterile diluent 50 mL nebulizer solution, 10 ng/kg/min, Inhalation, CONTINUOUS, Isidro Pulido MD, Last Rate: 6.7 mL/hr at 01/12/20 0736, 10 ng/kg/min at 01/12/20 0736 furosemide (LASIX) injection 20 mg, 20 mg, IV Push, PRN, Syeda Morse MD gentamicin 40 mg/mL 80 mg, vancomycin (VANCOCIN) 1,000 mg in NaCl 0.9% (NS ) 1,000 mL OR irrigation, , , PRN, Isidro Pulido MD, 1,000 mL at 01/11/20 0810 glucagon (GLUCAGEN DIAGNOSTIC KIT) injection 1 mg, 1 mg, Intramuscular, PRN , Syeda Morse MD heparin (porcine) injection 5,000 Units, 5,000 Units, Subcutaneous, Q12H, Syeda Morse MD heparin 1,000 unit/mL 30,000 Units in NaCl 0.9% (NS) 1,000 mL OR irrigation , , , PRN, Isidro Pulido MD, 1,000 mL at 01/11/20 0757 heparin 1,000 unit/mL 5,000 Units in NaCl 0.9% (NS) 500 mL OR irrigation, , , TORIEN, Isidro Pulido MD, 500 mL at 01/11/20 0810 insulin regular human (HUMULIN R) 100 Units in NaCl 0.9% (NS) 100 mL infusion, 2 Units/hr, IV Infusion, TITRATE, Syeda Morse MD, Last Rate: 7 mL/hr at 01/12/20 0713, 7 Units/hr at 01/12/20 0713 milrinone in D5W (PRIMACOR) 40 mg/200 mL infusion RTU, 0.125-0.75 mcg/kg/ min, IV Infusion, TITRATE, Isidro Pulido MD, Stopped at 01/12/20 0424 NaCl 0.9% (NS) bolus infusion 250 mL, 250 mL, IV Infusion, PRN - SEE INSTRUCTIONS, Syeda Morse MD NORepinephrine 4 mg in D5W 250 mL infusion RTU, 0.05-3 mcg/kg/min, IV Infusion, TITRATE, Syeda Morse MD, Stopped at 01/12/20 0541 ondansetron (ZOFRAN (PF)) injection 4 mg, 4 mg, Slow IV Push, Q6HPRN, Syeda Morse MD papaverine 60 mg in NaCl 0.9% (NS) 60 mL OR irrigation, , , PRN, Isidro Pulido MD, 60 mL at 01/11/20 0809 propofol IV infusion, 5-75 mcg/kg/min, IV Infusion, TITRATE, Syeda Morse MD, Last Rate: 13.4 mL/hr at 01/12/20 0851, 20 mcg/kg/min at 0851 sennosides (SENOKOT) tablet 8.6 mg, 8.6 mg, Oral, DAILY, Syeda Morse MD acetaminophen (TYLENOL) tablet 650 mg, 650 mg, Oral, Q6HPRN, Rivera Fernández MD atorvastatin (LIPITOR) tablet 20 mg, 20 mg, Oral, QHS, Rivera Fernández MD, Stopped at 01/11/202099 carvediloL (COREG) tablet 6.25 mg, 6.25 mg, Oral, BID MEALS, Rivera Fernández MD , Stopped at chlorhexidine (KIKI-HEX) 4 % liquid, , Topical, PRE-PROCEDURE ONCE, Isidro Pulido MD enoxaparin (LOVENOX) injection 40 mg, 40 mg, Subcutaneous, DAILY, Rivera Fernández MD finasteride (PROSCAR) tablet 5 mg, 5 mg, Oral, DAILY, Rivera Fernández MD gemfibrozil (LOPID) tablet 600 mg, 600 mg, Oral, BIDAC, Rivera Fernández MD, Stopped at 01/11/20 1630 HYDROcodone-acetaminophen (NORCO 5) 5-325 mg tablet 1 tablet, 1 tablet, Oral, Q6HPRN, Rivera Fernández MD omeprazole (PRILOSEC) capsule 20 mg, 20 mg, Oral, DAILY, Rivera Fernández MD Sliding Scale Insulin-Regular + Fsbg Testing, , Subcutaneous, AC+HS, Rivera Fernández MD, Stopped at 01/11/202099 tamsulosin (FLOMAX) capsule 0.4 mg, 0.4 mg, Oral, BID, Rivera Fernández MD, Stopped at 01/11/201999 Assessment: Juan Diego Damon is a 74 year old male admitted with: Coronary artery disease - S/P CABG Hypertension Hyperlipidemia Diabetes mellitus BPH GERD PLAN: Postoperative care status post CABG Milrinone, Propofol, Epinephrine, Levophed drips IV fluids Resume home medications CT surgery following Blood pressure support as needed Follow chest tube drainage output ICU monitoring, follow blood pressure trend closely Following labs, electrolytes Follow Hgb trend, assess for postoperative bleeding DVT prophylaxis, Lovenox Beta deyvi Antihyperlipidemic Sliding scale insulin, follow blood sugar trend, adjust medications as needed 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 Estes was present during patient encounter, examined patient at bedside , all questions answered Plan discussed with patient 01/12/2020 Currently still intubated and sedated Discussed with pulmonary and cardiothoracic surgery today Will attempt to wean off of ventilator support today Drains still in place Monitoring drain output Following blood sugar closely Sliding scale as needed We'll hold patient's medications orally for now Increase activity once extubated Further recommendations will be based on this patient's clinical course Luther Estes M.D. Isidro Blank MD - 01/12/2020 8:45 AM CDT Cardiothoracic Surgery Date of Service: 01/12/2020 08:45 S/P AVR, CABG PHYSICAL EXAM: Vitals: 01/12/20 0700 01/12/20 0733 01/12/20 0752 01/12/20 0800 BP: 120/55 124/56 Pulse: 94 93 93 Resp: 24 29 28 Temp: 36.6 C (97.9 F) 37.6 C (99.7 F) TempSrc: Core Core SpO2: 95% 95% 95% Weight: Height: Intake/Output Summary (Last 24 hours) at 01/12/2020 0845 Last data filed at 01/12/2020 0800 Gross per 24 hour Intake 90573 ml Output 4247 ml Net 8199 ml Lungs: clear to auscultation bilaterally Cardio: S1, S2 normal; no murmurs, rubs or gallops Abdomen: soft; non-tender; non-distended; normoactive bowel sounds LABS: Admission on 01/05/2020, Discharged on 01/06/2020 Component Date Value PROTIME PATIENT 01/05/2020 11.8 INR 01/05/2020 1.1 NA 01/05/2020 143 K 01/05/2020 4.0 CL 01/05/2020 107 CO2 TOTAL 01/05/2020 23 AGAP 01/05/2020 13 BUN 01/05/2020 28* GLUCOSE 01/05/2020 108 CREATININE 01/05/2020 0.89 CALCIUM 01/05/2020 8.9 eGFR Calculation (Non-Af* 01/05/2020 83.8 eGFR Calculation (Airam* 01/05/2020 101.6 WBC 01/05/2020 7.17 RBC 01/05/2020 4.37 HGB 01/05/2020 13.4 HCT 01/05/2020 40.6 MCV 01/05/2020 92.9 MCH 01/05/2020 30.7 MCHC 01/05/2020 33.0 RDW-SD 01/05/2020 49.7 RDW-CV 01/05/2020 14.8 PLT 01/05/2020 246 MPV 01/05/2020 9.3* NRBC/100 WBC 01/05/2020 0.0 NRBC x10^3 01/05/2020 <0.01 GRAN MAT (NEUT) % 01/05/2020 62.5 IMM GRAN % 01/05/2020 0.60 LYMPH % 01/05/2020 22.5 MONO % 01/05/2020 8.4 EOS % 01/05/2020 5.2 BASO % 01/05/2020 0.8 GRAN MAT x10^3(ANC) 01/05/2020 4.49 IMM GRAN x10^3 01/05/2020 0.04 LYMPH x10^3 01/05/2020 1.61 MONO x10^3 01/05/2020 0.60 EOS x10^3 01/05/2020 0.37 BASO x10^3 01/05/2020 0.06 HGB A1C 01/05/2020 7.6* POCT GLU 01/05/2020 195* POCT GLU 01/05/2020 238* ACTLR 01/05/2020 289* POCT GLU 01/05/2020 256* POCT GLU 01/06/2020 252* ACTLR 01/05/2020 270* RADIOLOGY: Xr Chest 1 Vw Result Date: 01/11/2020 Lines and tubes, as above.. Cardiomegaly with mild edema. Small left effusion. Patchy right basilar atelectasis versus infiltrate. Right upper lobe nodule measuring 9 mm, recommend comparison to prior exams. RL: [id number] SSMENT/PLAN Juan Diego Damon is a 74 year old male S/P AVR, CABG Wean off vent and pressors, Wean [place] CT to suction END OF DAILY PROGRESS NOTE HOSPITAL COURSE CURRENT MEDICATIONS - reviewed. Current Facility-Administered Medications Medication Dose Route Frequency Last Rate Last Dose FENTanyl PF (SUBLIMAZE (PF)) injection 50 mcg 50 mcg Slow IV Push Q3HPRN x 24 Hours 50 mcg at01/12/20 0810 acetaminophen (TYLENOL) suppository 650 mg 650 mg Rectal Q6HPRN acetaminophen (TYLENOL) tablet 650 mg 650 mg Oral Q6HPRN aspirin tablet 325 mg 325 mg Oral DAILY 325 mg at 01/11/20 2121 cardioplegic (PLEGISOL) perfusion solution PRN 1,000 mL at 01/11/20 0811 clopidogreL (PLAVIX) tablet 75 mg 75 mg Oral DAILY D5W-LR IV infusion 1,000 mL 1,000 mL IV Infusion CONTINUOUS Stopped at 1828 dextrose 50 % in water (D50W) injection 25 mL 25 mL Slow IV Push PRN DOBUTamine (DOBUTREX) 500 mg in 250 mL (Fixed Dose) D5W infusion RTU 2.5- 20 mcg/kg/min IV Infusion TITRATE 16.76 mL/hr at 01/12/20 0712 5 mcg/kg/min at 01/12/20 0712 docusate (COLACE) capsule 100 mg 100 mg Oral DAILY EPINEPHrine HCl in 0.9 % NaCl 4 mg/250 mL (16 mcg/mL) infusion RTU 0.01- 0.7 mcg/kg/min IV Infusion TITRATE 14.66 mL/hr at 01/12/20 0837 0.035 mcg/kg/ min at 01/12/20 0837 epoprostenol (FLOLAN) 500 mcg in sterile diluent 50 mL nebulizer solution 10 ng/kg/min Inhalation CONTINUOUS 6.7 mL/hr at 01/12/20 0736 10 ng/kg/min at 0736 furosemide (LASIX) injection 20 mg 20 mg IV Push PRN gentamicin 40 mg/mL 80 mg, vancomycin (VANCOCIN) 1,000 mg in NaCl 0.9% (NS) 1,000 mL OR irrigation PRN 1,000 mL at 01/11/20 0810 glucagon (GLUCAGEN DIAGNOSTIC KIT) injection 1 mg 1 mg Intramuscular PRN heparin (porcine) injection 5,000 Units 5,000 Units Subcutaneous Q12H heparin 1,000 unit/mL 30,000 Units in NaCl 0.9% (NS) 1,000 mL OR irrigation PRN 1,000 mL at01/11/20 0757 heparin 1,000 unit/mL 5,000 Units in NaCl 0.9% (NS) 500 mL OR irrigation PRN 500 mL at 01/11/20 0810 insulin regular human (HUMULIN R) 100 Units in NaCl 0.9% (NS) 100 mL infusion 2 Units/hr IV Infusion TITRATE 7 mL/hr at 01/12/20 0713 7 Units/hr at 01/12/20 0713 milrinone in D5W (PRIMACOR) 40 mg/200 mL infusion RTU 0.125-0.75 mcg/kg/ min IV Infusion TITRATE Stopped at 01/12/20 0424 NaCl 0.9% (NS) bolus infusion 250 mL 250 mL IV Infusion PRN - SEE INSTRUCTIONS NORepinephrine 4 mg in D5W 250 mL infusion RTU 0.05-3 mcg/kg/min IV Infusion TITRATE Stopped at 01/12/20 0541 ondansetron (ZOFRAN (PF)) injection 4 mg 4 mg Slow IV Push Q6HPRN papaverine 60 mg in NaCl 0.9% (NS) 60 mL OR irrigation PRN 60 mL at 08/22 0809 propofol IV infusion 5-75 mcg/kg/min IV Infusion TITRATE 16.76 mL/hr at 09/22 0838 25 mcg/kg/min at 01/12/20 0838 sennosides (SENOKOT) tablet 8.6 mg 8.6 mg Oral DAILY acetaminophen (TYLENOL) tablet 650 mg 650 mg Oral Q6HPRN atorvastatin (LIPITOR) tablet 20 mg 20 mg Oral QHS Stopped at 01/11/20 2100 carvediloL (COREG) tablet 6.25 mg 6.25 mg Oral BID MEALS Stopped at 01/10 1700 chlorhexidine (KIKI-HEX) 4 % liquid Topical PRE-PROCEDURE ONCE enoxaparin (LOVENOX) injection 40 mg 40 mg Subcutaneous DAILY finasteride (PROSCAR) tablet 5 mg 5 mg Oral DAILY gemfibrozil (LOPID) tablet 600 mg 600 mg Oral BIDAC Stopped at 01/11/20 1630 HYDROcodone-acetaminophen (NORCO 5) 5-325 mg tablet 1 tablet 1 tablet Oral Q6HPRN omeprazole (PRILOSEC) capsule 20 mg 20 mg Oral DAILY Sliding Scale Insulin-Regular + Fsbg Testing Subcutaneous AC+HS Stopped at 01/11/202099 tamsulosin (FLOMAX) capsule 0.4 mg 0.4 mg Oral BID Stopped at 01/11/201999 Liana Thompson OT - 01/12/2020 8:45 AM CD01/12/2020 OCCUPATIONAL THERAPY NOTE: Consult received; Epic reviewed. However, patient is currently on mechanical vent per medical record. OT to see patient for initial evaluation as time permits and as patient is medically appropriate. Thank you for this consult. Liana Luong, OTR, [facility] Pager: [phone] Erika Scruggs PT - 01/12/2020 8:28 AM CDTPT Note: First attempt at 0828: Consult received and EPIC reviewed. Attempted to see pt, however per chart, patient still currently on mechanical vent. Will attempt later as time permits. Thank you for this consult. Second attempt at 1500: Attempted to see patient again, however patient remains intubated and sedated. Will attempt next date. Thank you. ERIKA GRAYSON, PT, DPT Pgr. [phone] Diana Cardona RN - 01/11/2020 8:46 AM CDTCARE MANAGEMENT NOTE 01/11/20 0846 Readmission Questions Readmitted From: Home Why was patient readmitted: Planned CABG Was readmission Medication Related: No Social Determinants of Health: Tobacco use- Medium risk Community Referrals: N/A Does patient have Home Health Services: N/A Was [facility] referral completed: N/A Diana Scott RN, BSN Equities Analyst- [facility] Department of Care Management O [phone] E [email or web address] [phone] Jairo Bowen NP - 01/11/2020 8:23 AM CDT XpertMD Progress Note Jairo Ma ACNP Subjective: Admitted for CABG Patient seen & examined. Events reviewed. Objective: Vitals: 01/11/20 0002 01/11/20 0300 01/11/20 0630 01/11/20 0634 BP: 107/50 139/69 (!) 151/72 (!) 143/48 Pulse: 74 74 77 Resp: 17 17 20 Temp: 36.1 C (96.9 F) 36.1 C (96.9 F) TempSrc: Temporal Artery Temporal Artery SpO2: 91% 93% 94% Weight: 111.7 kg (246 lb 4.1 oz) Height: 1.702 m (5' 7") General: Sedated HEENT: NC, AT, Neck: no JVD/lymphadenopathy CV: RRR, no murmurs, rubs, gallops Lungs: Mild rhonchi - on vent Abdomen: soft, NT, ND, (+)BS Skin: no rashes - Chest tubes in place, LLE dressing in place Extremities: no clubbing, cyanosis, edema Neuro: sedated Psych: sedated Labs: Recent Results (from the past 48 hour(s)) Type and Screen - Type and Screen expires at midnight on the 3rd day after it was drawn. A current Type and Screen is required when RBCs are requested. For all other blood products, a Type and Screen performed during the current hospitalization i... Collection Time: 01/10/20 3:33 PM Result Value Ref Range ABO & RH O Positive IAT Negative PROTHROMBIN TIME / INR Collection Time: 01/10/20 3:33 PM Result Value Ref Range PROTIME PATIENT 11.4 10.1 - 12.6 Seconds INR 1.0 COMP. METABOLIC PANEL (73631) Collection Time: 01/10/20 3:33 PM Result Value Ref Range NA 142 135 - 145 mmol/L K 4.1 3.5 - 5.0 mmol/L CL 104 98 - 108 mmol/L CO2 TOTAL 24 23 - 31 mmol/L AGAP 14 2 - 16 BUN 37 (H) 7 - 23 mg/dL GLUCOSE 115 (H) 70 - 110 mg/dL CREATININE 1.31 (H) 0.60 - 1.25 mg/dL TOTAL BILI 0.3 0.1 - 1.1 mg/dL CALCIUM 9.4 8.6 - 10.6 mg/dL T PROTEIN 8.0 6.3 - 8.2 g/dL ALBUMIN 4.4 3.5 - 5.0 g/dL ALK PHOS 112 34 - 122 U/L ALTv 17 5 - 50 U/L AST(SGOT) 30 13 - 40 U/L eGFR Calculation (Non-) 53.6 mL/min/1.73m2 eGFR Calculation () 65.0 mL/min/1.73m2 CBC WITH DIFFERENTIAL Collection Time: 01/10/20 3:33 PM Result Value Ref Range WBC 7.63 4.20 - 10.70 10*3/L RBC 4.42 4.26 - 5.52 10*6/L HGB 13.6 12.2 - 16.4 g/dL HCT 41.7 38.4 - 49.3 % MCV 94.3 81.7 - 95.6 fL MCH 30.8 26.1 - 32.7 pg MCHC 32.6 31.2 - 35.0 g/dL RDW-SD 50.6 38.5 - 51.6 fL RDW-CV 14.6 12.1 - 15.4 % PLT 257 150 - 328 10*3/L MPV 9.5 (L) 9.8 - 13.0 fL NRBC/100 WBC 0.0 0.0 - 10.0 /100 WBCs NRBC x10^3 <0.01 10*3/L GRAN MAT (NEUT) % 62.5 % IMM GRAN % 0.50 % LYMPH % 25.0 % MONO % 6.8 % EOS % 4.5 % BASO % 0.7 % GRAN MAT x10^3(ANC) 4.77 1.99 - 6.95 10*3/uL IMM GRAN x10^3 0.04 0.00 - 0.06 10*3/uL LYMPH x10^3 1.91 1.09 - 3.23 10*3/uL MONO x10^3 0.52 0.36 - 1.02 10*3/uL EOS x10^3 0.34 0.06 - 0.53 10*3/uL BASO x10^3 0.05 0.01 - 0.09 10*3/uL ABORH CONFIRMATION Collection Time: 01/10/20 4:25 PM Result Value Ref Range ABO & RH O Positive POCT GLUCOSE (AUTOMATED) Collection Time: 01/10/20 5:08 PM Result Value Ref Range POCT GLU 101 70 - 110 mg/dL POCT GLUCOSE (AUTOMATED) Collection Time: 01/10/20 8:37 PM Result Value Ref Range POCT GLU 196 (H) 70 - 110 mg/dL POCT GLUCOSE (AUTOMATED) Collection Time: 01/11/20 5:31 AM Result Value Ref Range POCT GLU 128 (H) 70 - 110 mg/dL Prepare Packed RBC (in units), 2 Units Collection Time: 01/11/20 6:23 AM Result Value Ref Range Cross Match Result Compatible ISBT Blood Type Code 5100 Unit Blood Type O Pos Unit Number [id number] Blood Expiration Date & Time Status Information Issued Product Identification Red Blood Cells Product Code [id number] Cross Match Result Compatible ISBT Blood Type Code 5100 Unit Blood Type O Pos Unit Number [id number] Blood Expiration Date & Time [id number] Status Information Issued Product Identification Red Blood Cells Product Code [id number] Prepare Plasma (in units)~ Collection Time: 01/11/20 6:23 AM Result Value Ref Range Unit Blood Type O Pos ISBT Blood Type Code 5100 Unit Number [id number] Blood Expiration Date & Time [id number] Status Information Issued Product Identification FFP Product Code [id number] POCT ACT HIGH RANGE Collection Time: 01/11/20 8:14 AM Result Value Ref Range ACTHR 92 (L) 96 - 152 Seconds Current Facility-Administered Medications: cardioplegic (PLEGISOL) perfusion solution, , , PRJohn Lisa Shuab, MD, 1, 000 mL at 01/11/20 0811 gentamicin 40 mg/mL 80 mg, vancomycin (VANCOCIN) 1,000 mg in NaCl 0.9% (NS ) 1,000 mL OR irrigation, , , John RICHARDSON Shuab, MD, 1,000 mL at 01/11/20 0810 heparin 1,000 unit/mL 30,000 Units in NaCl 0.9% (NS) 1,000 mL OR irrigation , , , John RICHARDSON Shuab, MD, 1,000 mL at 01/11/20 0757 heparin 1,000 unit/mL 5,000 Units in NaCl 0.9% (NS) 500 mL OR irrigation, , , John RICHARDSON Shuab, MD, 500 mL at 01/11/20 0810 papaverine 60 mg in NaCl 0.9% (NS) 60 mL OR irrigation, , , John RICHARDSON Shuab, MD, 60 mL at 01/11/20 0809 acetaminophen (TYLENOL) tablet 650 mg, 650 mg, Oral, Q6HPRN, Rivera Fernández MD atorvastatin (LIPITOR) tablet 20 mg, 20 mg, Oral, QHS, Rivrea Fernández MD, 20 mg at 01/10/202033 carvediloL (COREG) tablet 6.25 mg, 6.25 mg, Oral, BID MEALS, Rivera Fernández MD , 6.25 mg at chlorhexidine (KIKI-HEX) 4 % liquid, , Topical, PRE-PROCEDURE ONCE, Isidro Pulido MD enoxaparin (LOVENOX) injection 40 mg, 40 mg, Subcutaneous, DAILY, Rivera Fernández MD FENTanyl PF (SUBLIMAZE (PF)) injection 50 mcg, 50 mcg, Slow IV Push, Q3HPRN x 24 Hours, Rivera Fernández MD finasteride (PROSCAR) tablet 5 mg, 5 mg, Oral, DAILY, Rivera Fernández MD gemfibrozil (LOPID) tablet 600 mg, 600 mg, Oral, BIDAC, Rivera Fernández MD, 600 mg at 01/10/20 172 HYDROcodone-acetaminophen (NORCO 5) 5-325 mg tablet 1 tablet, 1 tablet, Oral, Q6HPRN, Rivera Fernández MD insulin regular human (HUMULIN R) 100 Units in NaCl 0.9% (NS) 100 mL infusion, 0.1 Units/hr, IVInfusion, CONTINUOUS, Eufemia Ortega CRNA, Last Rate: 10 mL/hr at 01/11/20 0820, 10 Units/hr at 01/11/20 0820 omeprazole (PRILOSEC) capsule 20 mg, 20 mg, Oral, DAILY, Rivera Fernández MD Sliding Scale Insulin-Regular + Fsbg Testing, , Subcutaneous, AC+HS, Rivera Fernández MD, 3 Units at 01/10/202040 tamsulosin (FLOMAX) capsule 0.4 mg, 0.4 mg, Oral, BID, Rivera Fernández MD, 0.4 mg at 01/10/202033 Facility-Administered Medications Ordered in Other Encounters: aminocaproic acid (AMICAR) 5,000 mg in NaCl 0.9% (NS) infusion, , IV Infusion, CONTINUOUS PRN, Eufemia Ortega CRNA, 5 g at 01/11/20 0747 ceFAZolin (ANCEF) injection, , Intravenous, ONCE INTRA PROCEDURE, Eufemia Ortega CRNA, 3 g at 01/11/20 0745 ePHEDrine 25 mg/5 mL (5 mg/mL) syringe, , , ONCE INTRA PROCEDURE, Eufemia Ortega CRNA, 5 mgat 01/11/20 0822 FENTanyl PF (SUBLIMAZE (PF)) injection, , Intravenous, ONCE INTRA PROCEDURE , Eufemia Ortega CRNA, 250 mcg at 01/11/20 0803 lactated ringers IV infusion, , IV Infusion, CONTINUOUS PRN, Eufemia Ortega CRNA lidocaine 2% (XYLOCAINE) 20 mg/mL (2 %) injection, , , ONCE INTRA PROCEDURE , Eufemia Ortega CRNA, 100 mg at 01/11/20 0715 midazolam (VERSED) injection, , IV Push, ONCE INTRA PROCEDURE, Eufemia Ortega CRNA, 2 mg at01/11/20 0715 NaCl 0.9% (NS) IV infusion, , , CONTINUOUS PRN, Eufemia Ortega CRNA NaCl 0.9% (NS) IV infusion, , , CONTINUOUS PRN, Eufemia Ortega CRNA, Last Rate: 75 mL/hr at01/11/20 0721 NORepinephrine (LEVOPHED) 4 mg in NaCl 0.9% (NS) 250 mL infusion, , IV Infusion, CONTINUOUS PRN, Eufemia Ortega CRNA, Last Rate: 29.32 mL/hr at 08/22 0811, 0.07 mcg/kg/min at 01/11/20 0811 NORepinephrine (LEVOPHED) injection, , Intravenous, ONCE INTRA PROCEDURE, Eufemia Ortega CRNA, 0.016 mg at 01/11/20 0811 propofol IV infusion, , Intravenous, ONCE INTRA PROCEDURE, Eufemia Ortega CRNA, 60 mg at 01/11/20 0715 rocuronium (ZEMURON) injection, , IV Push, ONCE INTRA PROCEDURE, Eufemia Ortega CRNA, 30 mgat 01/11/20 0816 Assessment: Juan Diego Damon is a 74 year old male admitted with: Coronary artery disease - S/P CABG Hypertension Hyperlipidemia Diabetes mellitus BPH GERD PLAN: Postoperative care status post CABG Milrinone, Propofol, Epinephrine, Levophed drips IV fluids Resume home medications CT surgery following Blood pressure support as needed Follow chest tube drainage output ICU monitoring, follow blood pressure trend closely Following labs, electrolytes Follow Hgb trend, assess for postoperative bleeding DVT prophylaxis, Lovenox Beta deyvi Antihyperlipidemic Sliding scale insulin, follow blood sugar trend, adjust medications as needed 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 Estes was present during patient encounter, examined patient at bedside , all questions answered Plan discussed with patient Jairo Ma NP 01/11/2020 8:24 AM Isidro Blank MD - 01/10/2020 1:51 PM CDT Cardiothoracic Surgery Date of Service: 01/10/2020 13:51 LM CAD, Moderate PHYSICAL EXAM: Vitals: 01/10/20 1200 BP: 121/73 Pulse: 76 Resp: 20 Temp: 36.6 C (97.9 F) TempSrc: Axillary SpO2: 94% No intake or output data in the 24 hours ending 01/10/20 1351 Lungs: clear to auscultation bilaterally Cardio: S1, S2 normal; no murmurs, rubs or gallops Abdomen: soft; non-tender; non-distended; normoactive bowel sounds LABS: Admission on 01/05/2020, Discharged on 01/06/2020 Component Date Value PROTIME PATIENT 01/05/2020 11.8 INR 01/05/2020 1.1 NA 01/05/2020 143 K 01/05/2020 4.0 CL 01/05/2020 107 CO2 TOTAL 01/05/2020 23 AGAP 01/05/2020 13 BUN 01/05/2020 28* GLUCOSE 01/05/2020 108 CREATININE 01/05/2020 0.89 CALCIUM 01/05/2020 8.9 eGFR Calculation (Non-Af* 01/05/2020 83.8 eGFR Calculation (Airam* 01/05/2020 101.6 WBC 01/05/2020 7.17 RBC 01/05/2020 4.37 HGB 01/05/2020 13.4 HCT 01/05/2020 40.6 MCV 01/05/2020 92.9 MCH 01/05/2020 30.7 MCHC 01/05/2020 33.0 RDW-SD 01/05/2020 49.7 RDW-CV 01/05/2020 14.8 PLT 01/05/2020 246 MPV 01/05/2020 9.3* NRBC/100 WBC 01/05/2020 0.0 NRBC x10^3 01/05/2020 <0.01 GRAN MAT (NEUT) % 01/05/2020 62.5 IMM GRAN % 01/05/2020 0.60 LYMPH % 01/05/2020 22.5 MONO % 01/05/2020 8.4 EOS % 01/05/2020 5.2 BASO % 01/05/2020 0.8 GRAN MAT x10^3(ANC) 01/05/2020 4.49 IMM GRAN x10^3 01/05/2020 0.04 LYMPH x10^3 01/05/2020 1.61 MONO x10^3 01/05/2020 0.60 EOS x10^3 01/05/2020 0.37 BASO x10^3 01/05/2020 0.06 HGB A1C 01/05/2020 7.6* POCT GLU 01/05/2020 195* POCT GLU 01/05/2020 238* ACTLR 01/05/2020 289* POCT GLU 01/05/2020 256* POCT GLU 01/06/2020 252* ACTLR 01/05/2020 270* RADIOLOGY: No final results containing an impression from the past 48 hours were found. ASSESSMENT/PLAN Juan Diego Damon is a 74 year old male admitted With LM CAD, For CABG AVR tomorrow NPO after MN Type and cross END OF DAILY PROGRESS NOTE HOSPITAL COURSE CURRENT MEDICATIONS - reviewed. Current Facility-Administered Medications Medication Dose Route Frequency Last Rate Last Dose chlorhexidine (KIKI-HEX) 4 % liquid Topical PRE-PROCEDURE ONCE documented in this encounter Plan of Treatment Date Type Specialty Care Team Description 02/16/2020 Office Visit Cardiology Chary Martinez MD [address] [place] [address] [place] [id number] [phone] 04/18/2020 Office Visit Cardiology Chary Martinez MD [address] [place] [address] [address] [place] [address] [phone] Name Type Priority Associated Diagnoses Order Schedule EKG-12 LEAD ROUTINE HEART STATION STAT ONCE for 1 Occurrences starting 01/11/2020 until 01/11/2020 EKG-12 LEAD ROUTINE HEART STATION ERIN TOMORROW AM AT 0500 for 1 Occurrences starting 01/12/2020 until 01/12/2020 ABG+COOX+NA+K+GLU+C LAB ERIN ONCE for 1 Occurrences A2+ starting 01/11/2020 until 01/11/2020 EKG-12 LEAD ROUTINE HEART STATION Routine ONCE for 1 Occurrences starting 01/13/2020 until 01/13/2020 ABG+COOX+NA+K+GLU+C LAB ERIN ONCE for 1 Occurrences A2+ starting 01/14/2020 until 01/14/2020 EKG-12 LEAD ROUTINE HEART STATION Routine ONCE for 1 Occurrences starting 01/19/2020 until 01/19/2020 Health Maintenance Due Date Last Done Comments HEPATITIS C (HCV) SCREEN 1945 URINE MICROALBUMIN 1956 DTaP,Tdap,and Td Vaccines (1 - 1957 Tdap) Zoster Recombinant Vaccine 1996 (SHINGRIX) (1 of 2) Medicare Wellness Visit 2011 PNEUMOCOCCAL VACCINES 65+ (1 of 2 2011 - PCV13) EYE EXAM 07/04/2020 07/04/2019 HgA1C 07/07/2020 01/05/2020, 11/25/2019 FOOT EXAM 11/24/2020 11/24/2019 LDL-C 01/12/2021 01/13/2020, 11/25/2019 CREATININE (SERUM) 01/17/2021 01/18/2020, 01/17/2020, 01/17/2020, Additional history exists COLONOSCOPY 11/03/2027 11/03/2017 INFLUENZA VACCINE Completed 08/03/2019 documented as of this encounter Implants Implanted Type Area Critical Care Nurse Practitioner Device Shelf Model / Identifier Expiration Serial / Date Lot Kaitlin Ease Pericardial Bioprosthesis - Aortic Valve 25mm MaxCDN Ref#[id number] - [id number] VALVE N/A: Heart [employer] Life 08/21/2023 [id number] / Implanted: Qty: 1 on 01/11/2020 by Isidro Pulido MD at [facility] ([facility]) Science [id number] / [id number] Wire WIRE Upper: Mandible Ptfe [place] 2.5cmx15.2cm Bard Ref#[id number] - S0 N/A: Heart Bard [id number] / Implanted: Qty: 1 on 01/11/2020 by Isidro Pulido MD at [facility] ([facility]) 0 / 0 documented as of this encounter Procedures Procedure Name Priority Date/Time Associated Diagnosis Comments POCT GLUCOSE Routine 01/19/2020 Results for (AUTOMATED) 11:53 AM CDT this procedure are in the results section. POCT GLUCOSE Routine 01/19/2020 Results for (AUTOMATED) 8:24 AM CDT this procedure are in the results section. XR CHEST 1 VW Routine 01/19/2020 S/P CABG (coronary Results for 4:45 AM CDT artery bypass graft) this procedure are in the results section. EKG-12 LEAD Routine 01/19/2020 3:45 AM CDT CBC WITH Routine 01/19/2020 Results for DIFFERENTIAL 3:30 AM CDT this procedure are in the results section. CBC WITH Routine 01/19/2020 Results for DIFFERENTIAL 3:30 AM CDT this procedure are in the results section. BASIC METABOLIC ERIN 01/19/2020 Results for PANEL (NA, K, CL, 3:30 AM CDT this procedure CO2, GLUCOSE, BUN, are in the CREATININE, CA) results section. MAGNESIUM ERIN 01/19/2020 Results for 3:30 AM CDT this procedure are in the results section. POCT GLUCOSE Routine 01/18/2020 Results for (AUTOMATED) 7:40 PM CDT this procedure are in the results section. POCT GLUCOSE Routine 01/18/2020 Results for (AUTOMATED) 4:55 PM CDT this procedure are in the results section. POCT GLUCOSE Routine 01/18/2020 Results for (AUTOMATED) 12:48 PM CDT this procedure are in the results section. POCT GLUCOSE Routine 01/18/2020 Results for (AUTOMATED) 7:34 AM CDT this procedure are in the results section. XR CHEST 1 VW Routine 01/18/2020 S/P CABG (coronary Results for 6:43 AM CDT artery bypass graft) this procedure are in the results section. EKG-12 LEAD Routine 01/18/2020 4:56 AM CDT EKG-12 LEAD Routine 01/18/2020 4:55 AM CDT CBC WITH Routine 01/18/2020 Results for DIFFERENTIAL 4:38 AM CDT this procedure are in the results section. CBC WITH Routine 01/18/2020 Results for DIFFERENTIAL 4:38 AM CDT this procedure are in the results section. BASIC METABOLIC ERIN 01/18/2020 Results for PANEL (NA, K, CL, 4:38 AM CDT this procedure CO2, GLUCOSE, BUN, are in the CREATININE, CA) results section. MAGNESIUM ERIN 01/18/2020 Results for 4:38 AM CDT this procedure are in the results section. POCT GLUCOSE Routine 01/17/2020 Results for (AUTOMATED) 8:11 PM CDT this procedure are in the results section. POCT GLUCOSE Routine 01/17/2020 Results for (AUTOMATED) 4:40 PM CDT this procedure are in the results section. BASIC METABOLIC ERIN 01/17/2020 Results for PANEL (NA, K, CL, 4:16 PM CDT this procedure CO2, GLUCOSE, BUN, are in the CREATININE, CA) results section. MAGNESIUM ERIN 01/17/2020 Results for 4:16 PM CDT this procedure are in the results section. PHOSPHORUS ERIN 01/17/2020 Results for 4:16 PM CDT this procedure are in the results section. POCT GLUCOSE Routine 01/17/2020 Results for (AUTOMATED) 12:09 PM CDT this procedure are in the results section. POCT GLUCOSE Routine 01/17/2020 Results for (AUTOMATED) 8:15 AM CDT this procedure are in the results section. EKG-12 LEAD Routine 01/17/2020 4:11 AM CDT BASIC METABOLIC ERIN 01/17/2020 Results for PANEL (NA, K, CL, 12:28 AM CDT this procedure CO2, GLUCOSE, BUN, are in the CREATININE, CA) results section. MAGNESIUM ERIN 01/17/2020 Results for 12:28 AM CDT this procedure are in the results section. PHOSPHORUS Add-on 01/17/2020 Results for 12:28 AM CDT this procedure are in the results section. PROFILE / HEMOGRAM ERIN 01/17/2020 Results for 12:27 AM CDT this procedure are in the results section. POCT GLUCOSE Routine 01/16/2020 Results for (AUTOMATED) 8:28 PM CDT this procedure are in the results section. POCT GLUCOSE Routine 01/16/2020 Results for (AUTOMATED) 4:22 PM CDT this procedure are in the results section. BASIC METABOLIC ERIN 01/16/2020 Results for PANEL (NA, K, CL, 1:55 PM CDT this procedure CO2, GLUCOSE, BUN, are in the CREATININE, CA) results section. MAGNESIUM ERIN 01/16/2020 Results for 1:55 PM CDT this procedure are in the results section. PHOSPHORUS ERIN 01/16/2020 Results for 1:55 PM CDT this procedure are in the results section. POCT GLUCOSE Routine 01/16/2020 Results for (AUTOMATED) 11:54 AM CDT this procedure are in the results section. POCT GLUCOSE Routine 01/16/2020 Results for (AUTOMATED) 7:45 AM CDT this procedure are in the results section. XR CHEST 1 VW Routine 01/16/2020 Coronary artery Results for 5:40 AM CDT disease involving this procedure coronary bypass graft are in the of [place] heart with results angina pectoris section. EKG-12 LEAD Routine 01/16/2020 5:07 AM CDT CBC WITH Routine 01/16/2020 Results for DIFFERENTIAL 12:49 AM CDT this procedure are in the results section. CBC WITH Routine 01/16/2020 Results for DIFFERENTIAL 12:49 AM CDT this procedure are in the results section. BASIC METABOLIC ERIN 01/16/2020 Results for PANEL (NA, K, CL, 12:49 AM CDT this procedure CO2, GLUCOSE, BUN, are in the CREATININE, CA) results section. MAGNESIUM ERIN 01/16/2020 Results for 12:49 AM CDT this procedure are in the results section. PHOSPHORUS ERIN 01/16/2020 Results for 12:49 AM CDT this procedure are in the results section. POCT GLUCOSE Routine 01/15/2020 Results for (AUTOMATED) 8:16 PM CDT this procedure are in the results section. POCT GLUCOSE Routine 01/15/2020 Results for (AUTOMATED) 4:13 PM CDT this procedure are in the results section. BASIC METABOLIC ERIN 01/15/2020 Results for PANEL (NA, K, CL, 2:04 PM CDT this procedure CO2, GLUCOSE, BUN, are in the CREATININE, CA) results section. TOTAL IRON BINDING ERIN 01/15/2020 Results for CAPACITY 2:04 PM CDT this procedure are in the results section. MAGNESIUM ERIN 01/15/2020 Results for 2:04 PM CDT this procedure are in the results section. PHOSPHORUS ERIN 01/15/2020 Results for 2:04 PM CDT this procedure are in the results section. POCT GLUCOSE Routine 01/15/2020 Results for (AUTOMATED) 11:46 AM CDT this procedure are in the results section. POCT GLUCOSE Routine 01/15/2020 Results for (AUTOMATED) 8:03 AM CDT this procedure are in the results section. EKG-12 LEAD Routine 01/15/2020 5:18 AM CDT XR CHEST 1 VW Routine 01/15/2020 S/P CABG (coronary Results for 4:20 AM CDT artery bypass graft) this procedure are in the results section. CBC WITH Routine 01/15/2020 Results for DIFFERENTIAL 12:58 AM CDT this procedure are in the results section. CBC WITH Routine 01/15/2020 Results for DIFFERENTIAL 12:58 AM CDT this procedure are in the results section. BASIC METABOLIC ERIN 01/15/2020 Results for PANEL (NA, K, CL, 12:58 AM CDT this procedure CO2, GLUCOSE, BUN, are in the CREATININE, CA) results section. IRON Add-on 01/15/2020 Results for 12:58 AM CDT this procedure are in the results section. FERRITIN SERUM Add-on 01/15/2020 Results for 12:58 AM CDT this procedure are in the results section. MAGNESIUM ERIN 01/15/2020 Results for 12:58 AM CDT this procedure are in the results section. PHOSPHORUS ERIN 01/15/2020 Results for 12:58 AM CDT this procedure are in the results section. POCT GLUCOSE Routine 01/14/2020 Results for (AUTOMATED) 8:42 PM CDT this procedure are in the results section. POCT GLUCOSE Routine 01/14/2020 Results for (AUTOMATED) 4:16 PM CDT this procedure are in the results section. XR KUB STAT 01/14/2020 Acute on chronic Results for 4:15 PM CDT diastolic congestive this procedure heart failure are in the results section. BASIC METABOLIC STAT 01/14/2020 Results for PANEL (NA, K, CL, 3:54 PM CDT this procedure CO2, GLUCOSE, BUN, are in the CREATININE, CA) results section. MAGNESIUM STAT 01/14/2020 Results for 3:54 PM CDT this procedure are in the results section. ACUTE CARE ARTERIAL ERIN 01/14/2020 Results for BLOOD GAS 3:53 PM CDT this procedure are in the results section. XR CHEST 1 VW Routine 01/14/2020 S/P CABG (coronary Results for 3:30 PM CDT artery bypass graft) this procedure are in the results section. POCT GLUCOSE Routine 01/14/2020 Results for (AUTOMATED) 11:10 AM CDT this procedure are in the results section. POCT GLUCOSE Routine 01/14/2020 Results for (AUTOMATED) 8:09 AM CDT this procedure are in the results section. POCT GLUCOSE Routine 01/14/2020 Results for (AUTOMATED) 5:21 AM CDT this procedure are in the results section. AC PANEL 21 + ERIN 01/14/2020 Results for LACTIC ACID 4:43 AM CDT this procedure are in the results section. ABG+COOX+NA+K+GLU+C ERIN 01/14/2020 Results for A2+ 4:19 AM CDT this procedure are in the results section. XR CHEST 1 VW Routine 01/14/2020 S/P CABG (coronary Results for 3:57 AM CDT artery bypass graft) this procedure are in the results section. EKG-12 LEAD Routine 01/14/2020 3:50 AM CDT POCT GLUCOSE Routine 01/14/2020 Results for (AUTOMATED) 3:20 AM CDT this procedure are in the results section. CBC WITH Routine 01/14/2020 Results for DIFFERENTIAL 2:29 AM CDT this procedure are in the results section. CBC WITH Routine 01/14/2020 Results for DIFFERENTIAL 2:29 AM CDT this procedure are in the results section. BASIC METABOLIC ERIN 01/14/2020 Results for PANEL (NA, K, CL, 2:29 AM CDT this procedure CO2, GLUCOSE, BUN, are in the CREATININE, CA) results section. MAGNESIUM ERIN 01/14/2020 Results for 2:29 AM CDT this procedure are in the results section. PHOSPHORUS ERIN 01/14/2020 Results for 2:29 AM CDT this procedure are in the results section. POCT GLUCOSE Routine 01/14/2020 Results for (AUTOMATED) 2:08 AM CDT this procedure are in the results section. POCT GLUCOSE Routine 01/14/2020 Results for (AUTOMATED) 1:18 AM CDT this procedure are in the results section. ACUTE CARE VENOUS ERIN 01/14/2020 Results for BLOOD GAS 12:06 AM CDT this procedure are in the results section. POCT GLUCOSE Routine 01/13/2020 Results for (AUTOMATED) 11:05 PM CDT this procedure are in the results section. POCT GLUCOSE Routine 01/13/2020 Results for (AUTOMATED) 10:07 PM CDT this procedure are in the results section. POCT GLUCOSE Routine 01/13/2020 Results for (AUTOMATED) 9:01 PM CDT this procedure are in the results section. POCT GLUCOSE Routine 01/13/2020 Results for (AUTOMATED) 8:05 PM CDT this procedure are in the results section. POCT GLUCOSE Routine 01/13/2020 Results for (AUTOMATED) 6:01 PM CDT this procedure are in the results section. POCT GLUCOSE Routine 01/13/2020 Results for (AUTOMATED) 5:11 PM CDT this procedure are in the results section. BASIC METABOLIC ERIN 01/13/2020 Results for PANEL (NA, K, CL, 5:08 PM CDT this procedure CO2, GLUCOSE, BUN, are in the CREATININE, CA) results section. MAGNESIUM Add-on 01/13/2020 Results for 5:08 PM CDT this procedure are in the results section. PHOSPHORUS Add-on 01/13/2020 Results for 5:08 PM CDT this procedure are in the results section. POCT GLUCOSE Routine 01/13/2020 Results for (AUTOMATED) 3:50 PM CDT this procedure are in the results section. POCT GLUCOSE Routine 01/13/2020 Results for (AUTOMATED) 3:14 PM CDT this procedure are in the results section. ABG+COOX+NA+K+GLU+C ERIN 01/13/2020 Results for A2+ 2:10 PM CDT this procedure are in the results section. POCT GLUCOSE Routine 01/13/2020 Results for (AUTOMATED) 1:06 PM CDT this procedure are in the results section. ABG+COOX+NA+K+GLU+C ERIN 01/13/2020 Results for A2+ 11:57 AM CDT this procedure are in the results section. POCT GLUCOSE Routine 01/13/2020 Results for (AUTOMATED) 11:02 AM CDT this procedure are in the results section. POCT GLUCOSE Routine 01/13/2020 Results for (AUTOMATED) 9:54 AM CDT this procedure are in the results section. MAGNESIUM ERIN 01/13/2020 Results for 9:42 AM CDT this procedure are in the results section. PHOSPHORUS ERIN 01/13/2020 Results for 9:42 AM CDT this procedure are in the results section. POTASSIUM SERUM ERIN 01/13/2020 Results for 9:42 AM CDT this procedure are in the results section. POCT GLUCOSE Routine 01/13/2020 Results for (AUTOMATED) 8:00 AM CDT this procedure are in the results section. POCT GLUCOSE Routine 01/13/2020 Results for (AUTOMATED) 6:51 AM CDT this procedure are in the results section. XR CHEST 1 VW Routine 01/13/2020 S/P CABG (coronary Results for 6:15 AM CDT artery bypass graft) this procedure are in the results section. EKG-12 LEAD Routine 01/13/2020 6:02 AM CDT ABG+COOX+NA+K+GLU+C ERIN 01/13/2020 Results for A2+ 5:21 AM CDT this procedure are in the results section. AC PANEL 21 + ERIN 01/13/2020 Results for LACTIC ACID 3:23 AM CDT this procedure are in the results section. AC PANEL 20 + ERIN 01/13/2020 Results for LACTIC ACID 3:05 AM CDT this procedure are in the results section. CBC WITH Routine 01/13/2020 Results for DIFFERENTIAL 3:05 AM CDT this procedure are in the results section. CBC WITH Routine 01/13/2020 Results for DIFFERENTIAL 3:05 AM CDT this procedure are in the results section. LIPID PANEL Add-on 01/13/2020 Results for (28180)(TOTAL 3:05 AM CDT this procedure CHOLESTEROL, are in the TRIGLYCERIDES, HDL) results section. BASIC METABOLIC ERIN 01/13/2020 Results for PANEL (NA, K, CL, 3:05 AM CDT this procedure CO2, GLUCOSE, BUN, are in the CREATININE, CA) results section. MAGNESIUM ERIN 01/13/2020 Results for 3:05 AM CDT this procedure are in the results section. POCT GLUCOSE Routine 01/13/2020 Results for (AUTOMATED) 2:39 AM CDT this procedure are in the results section. POCT GLUCOSE Routine 01/13/2020 Results for (AUTOMATED) 12:15 AM CDT this procedure are in the results section. ABG+COOX+NA+K+GLU+C ERIN 01/12/2020 Results for A2+ 10:02 PM CDT this procedure are in the results section. AC PANEL 20 + ERIN 01/12/2020 Results for LACTIC ACID 7:59 PM CDT this procedure are in the results section. BASIC METABOLIC ERIN 01/12/2020 Results for PANEL (NA, K, CL, 7:59 PM CDT this procedure CO2, GLUCOSE, BUN, are in the CREATININE, CA) results section. MAGNESIUM ERIN 01/12/2020 Results for 7:59 PM CDT this procedure are in the results section. POCT GLUCOSE Routine 01/12/2020 Results for (AUTOMATED) 5:57 PM CDT this procedure are in the results section. POCT GLUCOSE Routine 01/12/2020 Results for (AUTOMATED) 3:56 PM CDT this procedure are in the results section. MAGNESIUM ERIN 01/12/2020 Results for 3:48 PM CDT this procedure are in the results section. PHOSPHORUS ERIN 01/12/2020 Results for 3:48 PM CDT this procedure are in the results section. POTASSIUM SERUM ERIN 01/12/2020 Results for 3:48 PM CDT this procedure are in the results section. POCT GLUCOSE Routine 01/12/2020 Results for (AUTOMATED) 2:02 PM CDT this procedure are in the results section. MAGNESIUM ERIN 01/12/2020 Results for 12:15 PM CDT this procedure are in the results section. PHOSPHORUS ERIN 01/12/2020 Results for 12:15 PM CDT this procedure are in the results section. POTASSIUM SERUM ERIN 01/12/2020 Results for 12:15 PM CDT this procedure are in the results section. POCT GLUCOSE Routine 01/12/2020 Results for (AUTOMATED) 12:06 PM CDT this procedure are in the results section. ABG+COOX+NA+K+GLU+C ERIN 01/12/2020 Results for A2+ 11:32 AM CDT this procedure are in the results section. POCT GLUCOSE Routine 01/12/2020 Results for (AUTOMATED) 10:01 AM CDT this procedure are in the results section. ABG+COOX+NA+K+GLU+C ERIN 01/12/2020 Results for A2+ 8:56 AM CDT this procedure are in the results section. PROFILE / HEMOGRAM ERIN 01/12/2020 Results for 8:18 AM CDT this procedure are in the results section. BASIC METABOLIC ERIN 01/12/2020 Results for PANEL (NA, K, CL, 8:18 AM CDT this procedure CO2, GLUCOSE, BUN, are in the CREATININE, CA) results section. MAGNESIUM ERIN 01/12/2020 Results for 8:18 AM CDT this procedure are in the results section. PHOSPHORUS ERIN 01/12/2020 Results for 8:18 AM CDT this procedure are in the results section. POCT GLUCOSE Routine 01/12/2020 Results for (AUTOMATED) 7:50 AM CDT this procedure are in the results section. ABG+COOX+NA+K+GLU+C ERIN 01/12/2020 Results for A2+ 7:19 AM CDT this procedure are in the results section. XR CHEST 1 VW ERIN 01/12/2020 Coronary Results for 6:18 AM CDT arteriosclerosis in this procedure [place] artery are in the results section. POCT GLUCOSE Routine 01/12/2020 Results for (AUTOMATED) 6:00 AM CDT this procedure are in the results section. POCT GLUCOSE Routine 01/12/2020 Results for (AUTOMATED) 4:11 AM CDT this procedure are in the results section. AC PANEL 21 + ERIN 01/12/2020 Results for LACTIC ACID 4:05 AM CDT this procedure are in the results section. CBC WITH Routine 01/12/2020 Results for DIFFERENTIAL 4:05 AM CDT this procedure are in the results section. ABG+COOX+NA+K+GLU+C ERIN 01/12/2020 Results for A2+ 4:05 AM CDT this procedure are in the results section. CBC WITH Routine 01/12/2020 Results for DIFFERENTIAL 4:05 AM CDT this procedure are in the results section. BASIC METABOLIC ERIN 01/12/2020 Results for PANEL (NA, K, CL, 4:05 AM CDT this procedure CO2, GLUCOSE, BUN, are in the CREATININE, CA) results section. MAGNESIUM Add-on 01/12/2020 Results for 4:05 AM CDT this procedure are in the results section. POCT GLUCOSE Routine 01/12/2020 Results for (AUTOMATED) 2:05 AM CDT this procedure are in the results section. EKG-12 LEAD Routine 01/12/2020 1:34 AM CDT CBC WITH Routine 01/12/2020 Results for DIFFERENTIAL 12:14 AM CDT this procedure are in the results section. CBC WITH Routine 01/12/2020 Results for DIFFERENTIAL 12:14 AM CDT this procedure are in the results section. BASIC METABOLIC ERIN 01/12/2020 Results for PANEL (NA, K, CL, 12:14 AM CDT this procedure CO2, GLUCOSE, BUN, are in the CREATININE, CA) results section. MAGNESIUM ERIN 01/12/2020 Results for 12:14 AM CDT this procedure are in the results section. AC PANEL 20 + STAT 01/12/2020 Results for LACTIC ACID 12:13 AM CDT this procedure are in the results section. POCT GLUCOSE Routine 01/11/2020 Results for (AUTOMATED) 11:20 PM CDT this procedure are in the results section. AC PANEL 20 + STAT 01/11/2020 Results for LACTIC ACID 10:19 PM CDT this procedure are in the results section. POCT GLUCOSE Routine 01/11/2020 Results for (AUTOMATED) 10:02 PM CDT this procedure are in the results section. POCT GLUCOSE Routine 01/11/2020 Results for (AUTOMATED) 9:10 PM CDT this procedure are in the results section. AC PANEL 20 + STAT 01/11/2020 Results for LACTIC ACID 7:59 PM CDT this procedure are in the results section. CBC WITH Routine 01/11/2020 Results for DIFFERENTIAL 7:59 PM CDT this procedure are in the results section. CBC WITH Routine 01/11/2020 Results for DIFFERENTIAL 7:59 PM CDT this procedure are in the results section. BASIC METABOLIC ERIN 01/11/2020 Results for PANEL (NA, K, CL, 7:59 PM CDT this procedure CO2, GLUCOSE, BUN, are in the CREATININE, CA) results section. MAGNESIUM ERIN 01/11/2020 Results for 7:59 PM CDT this procedure are in the results section. POCT GLUCOSE Routine 01/11/2020 Results for (AUTOMATED) 7:07 PM CDT this procedure are in the results section. POCT GLUCOSE Routine 01/11/2020 Results for (AUTOMATED) 6:25 PM CDT this procedure are in the results section. ABG+COOX+NA+K+GLU+C ERIN 01/11/2020 Results for A2+ 6:06 PM CDT this procedure are in the results section. POCT GLUCOSE Routine 01/11/2020 Results for (AUTOMATED) 5:43 PM CDT this procedure are in the results section. POCT GLUCOSE Routine 01/11/2020 Results for (AUTOMATED) 4:31 PM CDT this procedure are in the results section. ABG+COOX+NA+K+GLU+C ERIN 01/11/2020 Results for A2+ 4:24 PM CDT this procedure are in the results section. MRSA / MSSA SCREEN ERIN 01/11/2020 Results for BY PCR, NARES 4:16 PM CDT this procedure are in the results section. XR CHEST 1 VW STAT 01/11/2020 Coronary Results for 4:00 PM CDT arteriosclerosis in this procedure [place] artery are in the results section. EKG-12 LEAD Routine 01/11/2020 3:41 PM CDT ACTIVATED PARTIAL ERIN 01/11/2020 Results for THRMPLAS [place] 3:24 PM CDT this procedure are in the results section. PROTHROMBIN TIME / ERIN 01/11/2020 Results for INR 3:24 PM CDT this procedure are in the results section. BASIC METABOLIC ERIN 01/11/2020 Results for PANEL (NA, K, CL, 3:24 PM CDT this procedure CO2, GLUCOSE, BUN, are in the CREATININE, CA) results section. MAGNESIUM ERIN 01/11/2020 Results for 3:24 PM CDT this procedure are in the results section. PHOSPHORUS ERIN 01/11/2020 Results for 3:24 PM CDT this procedure are in the results section. CBC WITH Routine 01/11/2020 Results for DIFFERENTIAL 3:23 PM CDT this procedure are in the results section. CBC WITH Routine 01/11/2020 Results for DIFFERENTIAL 3:23 PM CDT this procedure are in the results section. ABG+COOX+NA+K+GLU+C ERIN 01/11/2020 Results for A2+ 3:22 PM CDT this procedure are in the results section. TRANSFUSE PACKED Routine 01/11/2020 RBC 2:50 PM CDT TRANSFUSE PACKED Routine 01/11/2020 RBC 2:49 PM CDT ISTAT ACUTE CARE ERIN 01/11/2020 Results for ARTERIAL 2:43 PM CDT this procedure are in the results section. ISTAT ACUTE CARE Routine 01/11/2020 Results for ARTERIAL 2:07 PM CDT this procedure are in the results section. POCT ACT HIGH RANGE Routine 01/11/2020 Results for 1:14 PM CDT this procedure are in the results section. ISTAT ACUTE CARE Routine 01/11/2020 Results for ARTERIAL 1:13 PM CDT this procedure are in the results section. PLATELET COUNT STAT 01/11/2020 Results for 1:12 PM CDT this procedure are in the results section. HEMATOCRIT STAT 01/11/2020 Results for 1:12 PM CDT this procedure are in the results section. HEMOGLOBIN STAT 01/11/2020 Results for 1:12 PM CDT this procedure are in the results section. FIBRINOGEN STAT 01/11/2020 Results for 1:00 PM CDT this procedure are in the results section. ACTIVATED PARTIAL STAT 01/11/2020 Results for THRMPLAS [place]AY 1:00 PM CDT this procedure are in the results section. PROTHROMBIN TIME / STAT 01/11/2020 Results for INR 1:00 PM CDT this procedure are in the results section. ISTAT ACUTE CARE Routine 01/11/2020 Results for ARTERIAL 12:17 PM CDT this procedure are in the results section. POCT ACT HIGH RANGE Routine 01/11/2020 Results for 12:13 PM CDT this procedure are in the results section. ISTAT ACUTE CARE Routine 01/11/2020 Results for ARTERIAL 11:45 AM CDT this procedure are in the results section. POCT ACT HIGH RANGE Routine 01/11/2020 Results for 11:42 AM CDT this procedure are in the results section. ISTAT ACUTE CARE Routine 01/11/2020 Results for ARTERIAL 11:16 AM CDT this procedure are in the results section. POCT ACT HIGH RANGE Routine 01/11/2020 Results for 11:13 AM CDT this procedure are in the results section. ISTAT ACUTE CARE Routine 01/11/2020 Results for ARTERIAL 10:46 AM CDT this procedure are in the results section. POCT ACT HIGH RANGE Routine 01/11/2020 Results for 10:43 AM CDT this procedure are in the results section. ISTAT ACUTE CARE Routine 01/11/2020 Results for ARTERIAL 10:22 AM CDT this procedure are in the results section. POCT ACT HIGH RANGE Routine 01/11/2020 Results for 10:19 AM CDT this procedure are in the results section. ISTAT ACUTE CARE Routine 01/11/2020 Results for ARTERIAL 9:52 AM CDT this procedure are in the results section. POCT ACT HIGH RANGE Routine 01/11/2020 Results for 9:49 AM CDT this procedure are in the results section. ISTAT ACUTE CARE Routine 01/11/2020 Results for ARTERIAL 9:30 AM CDT this procedure are in the results section. POCT ACT HIGH RANGE Routine 01/11/2020 Results for 9:27 AM CDT this procedure are in the results section. POCT ACT HIGH RANGE Routine 01/11/2020 Results for 9:07 AM CDT this procedure are in the results section. ISTAT ACUTE CARE Routine 01/11/2020 Results for ARTERIAL 8:47 AM CDT this procedure are in the results section. ISTAT ACUTE CARE Routine 01/11/2020 Results for ARTERIAL 8:17 AM CDT this procedure are in the results section. POCT ACT HIGH RANGE Routine 01/11/2020 Results for 8:14 AM CDT this procedure are in the results section. SURGICAL PATHOLOGY STAT 01/11/2020 Results for EXAM 6:33 AM CDT this procedure are in the results section. AORTIC VALVE Level 5 01/11/2020 CAD REPLACEMENT (greater than 6:30 AM CDT 5 days) CORONARY ARTERY Level 5 01/11/2020 CAD BYPASS GRAFT (greater than 6:30 AM CDT 5 days) PREPARE PACKED RBC Routine 01/11/2020 Results for 6:23 AM CDT this procedure are in the results section. POCT GLUCOSE Routine 01/11/2020 Results for (AUTOMATED) 5:31 AM CDT this procedure are in the results section. POCT GLUCOSE Routine 01/10/2020 Results for (AUTOMATED) 8:37 PM CDT this procedure are in the results section. POCT GLUCOSE Routine 01/10/2020 Results for (AUTOMATED) 5:08 PM CDT this procedure are in the results section. ABORH CONFIRMATION Routine 01/10/2020 Results for 4:25 PM CDT this procedure are in the results section. CBC WITH Routine 01/10/2020 Results for DIFFERENTIAL 3:33 PM CDT this procedure are in the results section. HB ABO GROUPING Routine 01/10/2020 Results for 3:33 PM CDT this procedure are in the results section. PROTHROMBIN TIME / Routine 01/10/2020 Results for INR 3:33 PM CDT this procedure are in the results section. CBC WITH Routine 01/10/2020 Results for DIFFERENTIAL 3:33 PM CDT this procedure are in the results section. COMP. METABOLIC Routine 01/10/2020 Results for PANEL (75180) 3:33 PM CDT this procedure are in the results section. documented in this encounter Results POCT GLUCOSE (AUTOMATED) (01/19/2020 11:53 AM CDT) POCT GLU 214 (H) 70 - 110 mg/dL [facility] Specimen Blood Performing Organization Address [facility] Phone Number [facility] CLIA: [id number], [address] [place] [address] St POCT GLUCOSE (AUTOMATED) (01/19/2020 8:24 AM CDT) POCT GLU 128 (H) 70 - 110 mg/dL [facility] Specimen Blood Performing Organization Address [facility] Phone Number [facility] CLIA: [id number], [address] [place] [address] St XR CHEST 1 VW (01/19/2020 4:45 AM CDT) Specimen Narrative Performed At EXAM: XR CHEST 1 VW PACS/VR/DOSE HISTORY: s/p CABG COMPARISON: None. FINDINGS: The heart is slightly enlarged, but it is not as large as noted yesterday. The lungs are moderately well expanded and clear except for mild basilar subsegmental atelectasis on the left and a small pleural effusion blunting the left costophrenic angle. Procedure Note [facility], Radiant Results Inft User - 01/19/2020 8:09 AM CDT EXAM: XR CHEST 1 VW HISTORY: s/p CABG COMPARISON: None. FINDINGS: The heart is slightly enlarged, but it is not as large as noted yesterday. The lungs are moderately well expanded and clear except for mild basilar subsegmental atelectasis on the left and a small pleural effusion blunting the left costophrenic angle. Performing Organization Address [facility] Phone Number PACS/VR/DOSE CBC WITH DIFFERENTIAL (01/19/2020 3:30 AM CDT) WBC 7.59 4.20 - 10.70 [facility] 10*3/L [facility] RBC 2.65 (L) 4.26 - 5.52 [facility] 10*6/L [facility] HGB 8.1 (L) 12.2 - 16.4 [facility] g/dL [facility] HCT 25.7 (L) 38.4 - 49.3 % [facility] MCV 97.0 (H) 81.7 - 95.6 fL [facility] MCH 30.6 26.1 - 32.7 pg [facility] MCHC 31.5 31.2 - 35.0 [facility] g/dL [facility] RDW-SD 53.1 (H) 38.5 - 51.6 fL [facility] RDW-CV 15.6 (H) 12.1 - 15.4 % [facility] PLT 276 150 - 328 [facility] 10*3/L [facility] MPV 8.6 (L) 9.8 - 13.0 fL [facility] NRBC/100 WBC 0.5 0.0 - 10.0 /100 [facility] WBCs [facility] NRBC x10^3 0.04 10*3/L [facility] GRAN MAT (NEUT) % 65.3 % [facility] IMM GRAN % 1.40 % [facility] LYMPH % 19.4 % [facility] MONO % 9.1 % [facility] EOS % 4.3 % [facility] BASO % 0.5 % [facility] GRAN MAT x10^3(ANC) 4.95 1.99 - 6.95 [facility] 10*3/uL [facility] IMM GRAN x10^3 0.11 (H) 0.00 - 0.06 [facility] 10*3/uL [facility] LYMPH x10^3 1.47 1.09 - 3.23 [facility] 10*3/uL [facility] MONO x10^3 0.69 0.36 - 1.02 [facility] 10*3/uL [facility] EOS x10^3 0.33 0.06 - 0.53 [facility] 10*3/uL [facility] BASO x10^3 0.04 0.01 - 0.09 [facility] 10*3/uL [facility] Specimen Blood - ARM, LEFT Performing Organization Address City/[facility]/Zipcode Phone Number [facility] CLIA: [id number], [address] [place] [address] [facility] MAGNESIUM (01/19/2020 3:30 AM CDT) MAGNESIUM 2.1 1.7 - 2.4 mg/dL [facility] Specimen Blood - ARM, LEFT Performing Organization Address [facility]/Zipcode Phone Number [facility] CLIA: [id number], [address] [place] [address] [facility] [address] BASIC METABOLIC PANEL (NA, K, CL, CO2, GLUCOSE, BUN, CREATININE, CA) (2019 3:30 AM CDT) NA 141 135 - 145 [facility] mmol/L [facility] K 3.7 3.5 - 5.0 [facility] mmol/L [facility] CL 100 98 - 108 mmol/L [facility] CO2 TOTAL 35 (H) 23 - 31 mmol/L [facility] AGAP 6 2 - 16 [facility] BUN 41 (H) 7 - 23 mg/dL [facility] GLUCOSE 102 70 - 110 mg/dL [facility] CREATININE 1.17 0.60 - 1.25 [facility] mg/dL [facility] CALCIUM 7.8 (L) 8.6 - 10.6 [facility] mg/dL [facility] eGFR Calculation 61.1 mL/min/1.73m2 [facility] (Non- [facility]) [place] eGFR Calculation 74.1 mL/min/1.73m2 [facility] () [facility] Specimen Blood - ARM, LEFT Narrative Performed At [employer] of [employer]omerular Fil[employer] Rate [facility] SERVICES-CLEAR LEGER (GFR) and Staging of Kidney Disease* CAMPUS [...] abnormalities in imaging tests). Performing Organization Address City/[facility] Phone Number [facility] CLIA: [id number], [address] [place] [address] [facility] [address] POCT GLUCOSE (AUTOMATED) (01/18/2020 7:40 PM CDT) POCT GLU 169 (H) 70 - 110 mg/dL [facility] Specimen Blood Performing Organization Address [facility] Phone Number [facility] CLIA: [id number], [address] [place] [address] St POCT GLUCOSE (AUTOMATED) (01/18/2020 4:55 PM CDT) POCT GLU 179 (H) 70 - 110 mg/dL [facility] Specimen Blood Performing Organization Address [facility] Phone Number [facility] CLIA: [id number], [address] [place] [address] St POCT GLUCOSE (AUTOMATED) (01/18/2020 12:48 PM CDT) POCT GLU 213 (H) 70 - 110 mg/dL [facility] Specimen Blood Performing Organization Address [facility] Phone Number [facility] CLIA: [id number], [address] [place] [address] St POCT GLUCOSE (AUTOMATED) (01/18/2020 7:34 AM CDT) POCT GLU 149 (H) 70 - 110 mg/dL [facility] Specimen Blood Performing Organization Address [facility] Phone Number [facility] CLIA: [id number], [address] [place] [address] St XR CHEST 1 VW (01/18/2020 6:43 AM CDT) Specimen Narrative Performed At EXAM: XR CHEST 1 VW PACS/VR/DOSE HISTORY: s/p cabg COMPARISON: None. FINDINGS: The heart remains slightly enlarged, little different than noted previously. The lungs are moderately well expanded and show linear parenchymal scars on both sides. The left costophrenic angle is blunted by pleural effusion or thickening. The lungs are clear otherwise. Procedure Note [facility], Radiant Results Inft User - 01/18/2020 8:26 AM CDT EXAM: XR CHEST 1 VW HISTORY: s/p cabg COMPARISON: None. FINDINGS: The heart remains slightly enlarged, little different than noted previously. The lungs are moderately well expanded and show linear parenchymal scars on both sides. The left costophrenic angle is blunted by pleural effusion or thickening. The lungs are clear otherwise. Performing Organization Address [facility] Phone Number PACS/VR/DOSE CBC WITH DIFFERENTIAL (01/18/2020 4:38 AM CDT) WBC 8.18 4.20 - 10.70 [facility] 10*3/L [facility] RBC 2.58 (L) 4.26 - 5.52 [facility] 10*6/L [facility] HGB 8.0 (L) 12.2 - 16.4 [facility] g/dL [facility] HCT 25.2 (L) 38.4 - 49.3 % [facility] MCV 97.7 (H) 81.7 - 95.6 fL [facility] MCH 31.0 26.1 - 32.7 pg [facility] MCHC 31.7 31.2 - 35.0 [facility] g/dL [facility] RDW-SD 53.7 (H) 38.5 - 51.6 fL [facility] RDW-CV 15.4 12.1 - 15.4 % [facility] PLT 256 150 - 328 [facility] 10*3/L [facility] MPV 8.9 (L) 9.8 - 13.0 fL [facility] NRBC/100 WBC 0.5 0.0 - 10.0 /100 [facility] WBCs [facility] NRBC x10^3 0.04 10*3/L [facility] GRAN MAT (NEUT) % 69.1 % [facility] IMM GRAN % 1.20 % [facility] LYMPH % 16.5 % [facility] MONO % 8.9 % [facility] EOS % 3.9 % [facility] BASO % 0.4 % [facility] GRAN MAT x10^3(ANC) 5.65 1.99 - 6.95 [facility] 10*3/uL [facility] IMM GRAN x10^3 0.10 (H) 0.00 - 0.06 [facility] 10*3/uL [facility] LYMPH x10^3 1.35 1.09 - 3.23 [facility] 10*3/uL [facility] MONO x10^3 0.73 0.36 - 1.02 [facility] 10*3/uL [facility] EOS x10^3 0.32 0.06 - 0.53 [facility] 10*3/uL [facility] BASO x10^3 0.03 0.01 - 0.09 [facility] 10*3/uL [facility] Specimen Blood - VENOUS Performing Organization Address City/State/Zipcode Phone Number [facility] CLIA: [id number], [address] [place], [place] [id number] [facility] [address] MAGNESIUM (01/18/2020 4:38 AM CDT) MAGNESIUM 2.2 1.7 - 2.4 mg/dL [facility] Specimen Blood - VENOUS Performing Organization Address City/State/Zipcode Phone Number [facility] CLIA: [id number], [address] [place], [place] [id number] [facility] [address] BASIC METABOLIC PANEL (NA, K, CL, CO2, GLUCOSE, BUN, CREATININE, CA) (2019 4:38 AM CDT) NA 143 135 - 145 [facility] mmol/L [facility] K 4.0 3.5 - 5.0 [facility] mmol/L [facility] CL 101 98 - 108 mmol/L [facility] CO2 TOTAL 35 (H) 23 - 31 mmol/L [facility] AGAP 7 2 - 16 [facility] BUN 36 (H) 7 - 23 mg/dL [facility] GLUCOSE 120 (H) 70 - 110 mg/dL [facility] CREATININE 1.07 0.60 - 1.25 [facility] mg/dL [facility] CALCIUM 7.9 (L) 8.6 - 10.6 [facility] mg/dL [facility] eGFR Calculation 67.7 mL/min/1.73m2 [facility] (Non- [facility] [place]) [place] eGFR Calculation 82.1 mL/min/1.73m2 [facility] [facility] Specimen Blood - VENOUS Narrative Performed At Association of Glomerular Filtration Rate [facility] (GFR) and Staging of Kidney Disease* [place] + + --+ + | GFR (mL/min/1.73 [...] abnormalities in imaging tests). Performing Organization Address City/[facility]/Zipcode Phone Number [facility] CLIA: [id number], [address] [place] [address] [facility] POCT GLUCOSE (AUTOMATED) (01/17/2020 8:11 PM CDT) POCT GLU 158 (H)Comment: 70 - 110 mg/dL [facility] Specimen Blood Performing Organization Address [facility]/Zipcode Phone Number [facility] CLIA: [id number], [address] [place] [address] POCT GLUCOSE (AUTOMATED) (01/17/2020 4:40 PM CDT) POCT GLU 181 (H) 70 - 110 mg/dL [facility] Specimen Blood Performing Organization Address [facility] Phone Number [facility] CLIA: [id number], [address] [place] [address] St MAGNESIUM (01/17/2020 4:16 PM CDT) MAGNESIUM 2.0 1.7 - 2.4 mg/dL [facility] Specimen Blood - CENTRAL VENOUS LINE Performing Organization Address City/[facility] Phone Number [facility] CLIA: [id number], [address] [place] [phone] [facility] PHOSPHORUS (01/17/2020 4:16 PM CDT) PHOSPHORUS 2.5 2.5 - 5.0 mg/dL [facility] Specimen Blood - CENTRAL VENOUS LINE Performing Organization Address [facility] Phone Number [facility] CLIA: [id number], [address] [place] [address] [facility] [place] BASIC METABOLIC PANEL (NA, K, CL, CO2, GLUCOSE, BUN, CREATININE, CA) (2019 4:16 PM CDT) NA 143 135 - 145 [facility] mmol/L [facility] K 3.7 3.5 - 5.0 [facility] mmol/L [facility] CL 100 98 - 108 mmol/L [facility] CO2 TOTAL 34 (H) 23 - 31 mmol/L [facility] AGAP 9 2 - 16 [facility] BUN 40 (H) 7 - 23 mg/dL [facility] GLUCOSE 177 (H) 70 - 110 mg/dL [facility] CREATININE 0.96 0.60 - 1.25 [facility] mg/dL [facility] CALCIUM 8.0 (L) 8.6 - 10.6 [facility] mg/dL [facility] eGFR Calculation 76.8 mL/min/1.73m2 [facility] ([facility]) [place] eGFR Calculation 93.1 mL/min/1.73m2 [facility] () [facility] Specimen Blood - CENTRAL VENOUS LINE Narrative Performed At Association of Glomerular Filtration Rate [facility] (GFR) and Staging of Kidney Disease* [...] tests). Performing Organization Address City/State/Zipcode Phone Number [facility] CLIA: [id number], [address] [place], [place] [phone] [facility] POCT GLUCOSE (AUTOMATED) (01/17/2020 12:09 PM CDT) POCT GLU 239 (H) 70 - 110 mg/dL [facility] Specimen Blood Performing Organization Address City/[facility] Hospital[facility] Phone Number [facility] CLIA: [id number], [address] [place] [address] POCT GLUCOSE (AUTOMATED) (01/17/2020 8:15 AM CDT) POCT GLU 208 (H) 70 - 110 mg/dL [facility] Specimen Blood Performing Organization Address City/[facility] Hospitalcode Phone Number [facility] CLIA: [id number], [address] [place] [address] PHOSPHORUS (01/17/2020 12:28 AM CDT) PHOSPHORUS 3.1 2.5 - 5.0 mg/dL [facility] Specimen Blood - VENOUS Performing Organization Address City/[facility] Phone Number [facility] CLIA: [id number], [address] [place] [address] [facility] MAGNESIUM (01/17/2020 12:28 AM CDT) MAGNESIUM 2.4 1.7 - 2.4 mg/dL [facility] Specimen Blood - VENOUS Performing Organization Address City/[facility] Phone Number [facility] CLIA: [id number], [address] [place] [address] [facility] BASIC METABOLIC PANEL (NA, K, CL, CO2, GLUCOSE, BUN, CREATININE, CA) (2019 12:28 AM CDT) NA 141 135 - 145 [facility] mmol/L [facility] K 3.7 3.5 - 5.0 [facility] mmol/L [facility] CL 100 98 - 108 mmol/L [facility] CO2 TOTAL 34 (H) 23 - 31 mmol/L [facility] AGAP 7 2 - 16 [facility] BUN 38 (H) 7 - 23 mg/dL [facility] GLUCOSE 206 (H) 70 - 110 mg/dL [facility] CREATININE 1.12 0.60 - 1.25 [facility] mg/dL [facility] CALCIUM 7.8 (L) 8.6 - 10.6 [facility] mg/dL [facility] eGFR Calculation 64.3 mL/min/1.73m2 [facility] (Non- [facility] Andorran) [place] eGFR Calculation 77.9 mL/min/1.73m2 [facility] () [facility] Specimen Blood - VENOUS Narrative Performed At Association of Glomerular Filtration Rate [facility] (GFR) and Staging of Kidney Disease* [...] tests). Performing Organization Address City/State/Zipcode Phone Number [facility] CLIA: [id number], [address] [place] [address] [facility] [place] [address] PROFILE / HEMOGRAM (01/17/2020 12:27 AM CDT) WBC 7.64 4.20 - 10.70 [facility] 10*3/L [facility] RBC 2.49 (L) 4.26 - 5.52 [facility] 10*6/L [facility] HGB 7.6 (L) 12.2 - 16.4 g/dL [facility] HCT 24.1 (L) 38.4 - 49.3 % [facility] MCH 30.5 26.1 - 32.7 pg [facility] MCV 96.8 (H) 81.7 - 95.6 fL [facility] MCHC 31.5 31.2 - 35.0 g/dL [facility] PLT 217 150 - 328 10*3/L [facility] MPV 9.2 (L) 9.8 - 13.0 fL [facility] RDW-CV 15.2 12.1 - 15.4 % [facility] RDW-SD 52.7 (H) 38.5 - 51.6 fL [facility] NRBC x10^3 0.07 10*3/L [facility] NRBC/100 WBC 0.9 0.0 - 10.0 /100 [facility] WBCs [facility] IPF % [facility] Specimen Blood - VENOUS Performing Organization Address [facility] Hospitalcoms Phone Number [facility] CLIA: [id number], [address] [place] [address] [facility] [place] [address] POCT GLUCOSE (AUTOMATED) (01/16/2020 8:28 PM CDT) POCT GLU 218 (H) 70 - 110 mg/dL [facility] Specimen Blood Performing Organization Address City/[facility] Hospitalcode Phone Number [facility] CLIA: [id number], [address] [place], [place] [phone] St POCT GLUCOSE (AUTOMATED) (01/16/2020 4:22 PM CDT) POCT GLU 216 (H) 70 - 110 mg/dL [facility] Specimen Blood Performing Organization Address [facility] Phone Number [facility] CLIA: [id number], [address] [place], [place] [id number] [phone] St BASIC METABOLIC PANEL (NA, K, CL, CO2, GLUCOSE, BUN, CREATININE, CA) (2019 1:55 PM CDT) NA 141 135 - 145 [facility] mmol/L [facility] K 3.6 3.5 - 5.0 [facility] mmol/L [facility] CL 100 98 - 108 mmol/L [facility] CO2 TOTAL 33 (H) 23 - 31 mmol/L [facility] AGAP 8 2 - 16 [facility] BUN 41 (H) 7 - 23 mg/dL [facility] GLUCOSE 173 (H) 70 - 110 mg/dL [facility] CREATININE 1.01 0.60 - 1.25 [facility] mg/dL [facility] CALCIUM 7.8 (L) 8.6 - 10.6 [facility] mg/dL [facility] eGFR Calculation 72.4 mL/min/1.73m2 [facility] (Non- [facility] Andorran) [place] eGFR Calculation 87.8 mL/min/1.73m2 [facility] () [facility] Specimen Blood - CENTRAL VENOUS LINE Narrative Performed At [facility] of Glomerular Filtration Rate [facility] (GFR) and Staging of Kidney Disease* [...] tests). Performing Organization Address City/State/Zipcode Phone Number [facility] CLIA: [id number], [address] [place] [address] [facility] MAGNESIUM (01/16/2020 1:55 PM CDT) MAGNESIUM 2.2 1.7 - 2.4 mg/dL [facility] Specimen Blood - CENTRAL VENOUS LINE Performing Organization Address City/[facility] Phone Number [facility] CLIA: [id number], [address] [place] [address] [facility] PHOSPHORUS (01/16/2020 1:55 PM CDT) PHOSPHORUS 3.0 2.5 - 5.0 mg/dL [facility] Specimen Blood - CENTRAL VENOUS LINE Performing Organization Address [facility] Phone Number [facility] CLIA: [id number], [address] [place] [address] [facility] POCT GLUCOSE (AUTOMATED) (01/16/2020 11:54 AM CDT) POCT GLU 197 (H) 70 - 110 mg/dL [facility] Specimen Blood Performing Organization Address [facility] Phone Number [facility] CLIA: [id number], [address] [place] [address] [phone] St POCT GLUCOSE (AUTOMATED) (01/16/2020 7:45 AM CDT) POCT GLU 183 (H) 70 - 110 mg/dL [facility] Specimen Blood Performing Organization Address [facility] Phone Number [facility] CLIA: [id number], [address] [place] [address] [phone] St XR CHEST 1 VW (01/16/2020 5:40 AM CDT) Specimen Impressions Performed At PACS/VR/DOSE Persistent atelectasis in the left lower lobe with a small left pleural effusion. Mild interstitial edema Cardiomegaly. Narrative Performed At EXAM: XR CHEST 1 VW PACS/VR/DOSE HISTORY: s/p cabg COMPARISON: 01/15/2020. 01/12/2020. FINDINGS: Persistent opacification in the left lower lobe has been present dating back to 01/12/2020. This most likely represents atelectasis related to the patient's recent procedure. A small left pleural effusion is present. Mild interstitial edema. The heart remains enlarged. Sternotomy wires are present. A right IJ cannula terminates near the cavoatrial junction. No acute or aggressive bony lesions. Procedure Note [facility], Radiant Results Inft User - 01/16/2020 1:14 PM CDT EXAM: XR CHEST 1 VW HISTORY: s/p cabg COMPARISON: 01/15/2020. 01/12/2020. FINDINGS: Persistent opacification in the left lower lobe has been present dating back to 01/12/2020. This most likely represents atelectasis related to the patient's recent procedure. A small left pleural effusion is present. Mild interstitial edema. The heart remains enlarged. Sternotomy wires are present. A right IJ cannula terminates near the cavoatrial junction. No acute or aggressive bony lesions. IMPRESSION Persistent atelectasis in the left lower lobe with a small left pleural effusion. Mild interstitial edema Cardiomegaly. Performing Organization Address City/State/Zipcode Phone Number PACS/VR/DOSE CBC WITH DIFFERENTIAL (01/16/2020 12:49 AM CDT) WBC 8.39 4.20 - 10.70 [facility] 10*3/L [facility] RBC 2.56 (L) 4.26 - 5.52 [facility] 10*6/L [facility] HGB 7.9 (L) 12.2 - 16.4 [facility] g/dL [facility] HCT 24.3 (L) 38.4 - 49.3 % [facility] MCV 94.9 81.7 - 95.6 fL [facility] MCH 30.9 26.1 - 32.7 pg [facility] MCHC 32.5 31.2 - 35.0 [facility] g/dL [facility] RDW-SD 52.4 (H) 38.5 - 51.6 fL [facility] RDW-CV 15.0 12.1 - 15.4 % [facility] PLT 197 150 - 328 [facility] 10*3/L [facility] MPV 9.6 (L) 9.8 - 13.0 fL [facility] NRBC/100 WBC 0.6 0.0 - 10.0 /100 [facility] WBCs [facility] NRBC x10^3 0.05 10*3/L [facility] GRAN MAT (NEUT) % 69.4 % [facility] IMM GRAN % 1.00 % [facility] LYMPH % 13.2 % [facility] MONO % 11.7 % [facility] EOS % 4.3 % [facility] BASO % 0.4 % [facility] GRAN MAT x10^3(ANC) 5.83 1.99 - 6.95 [facility] 10*3/uL [facility] IMM GRAN x10^3 0.08 (H) 0.00 - 0.06 [facility] 10*3/uL [facility] LYMPH x10^3 1.11 1.09 - 3.23 [facility] 10*3/uL [facility] MONO x10^3 0.98 0.36 - 1.02 [facility] 10*3/uL [facility] EOS x10^3 0.36 0.06 - 0.53 [facility] 10*3/uL [facility] BAS[facility] x10^3 0.03 0.01 - 0.09 [facility] 10*3/uL [facility] Specimen Blood - ARTERIAL Performing Organization Address City/[facility]/Zipcode Phone Number [facility] CLIA: [id number], [address] [place], [place] [phone] [facility] [address] [address] PHOSPHORUS (01/16/2020 12:49 AM CDT) [facility] Signature PHOSPHORUS 2.7 2.5 - 5.0 mg/dL [facility] Specimen Blood - ARTERIAL Performing Organization Address City/[facility] Phone Number [facility] CLIA: [id number], [address] [place] [address] [facility] MAGNESIUM (01/16/2020 12:49 AM CDT) MAGNESIUM 2.3 1.7 - 2.4 mg/dL [facility] Specimen Blood - ARTERIAL Performing Organization Address City/State/Zipcode Phone Number [facility] CLIA: [id number], [address] [place] [address] [facility] BASIC METABOLIC PANEL (NA, K, CL, CO2, GLUCOSE, BUN, CREATININE, CA) (2019 12:49 AM CDT) NA 142 135 - 145 [facility] mmol/L [facility] K 3.6 3.5 - 5.0 [facility] mmol/L [facility] CL 100 98 - 108 mmol/L [facility] CO2 TOTAL 32 (H) 23 - 31 mmol/L [facility] AGAP 10 2 - 16 [facility] BUN 38 (H) 7 - 23 mg/dL [facility] GLUCOSE 147 (H) 70 - 110 mg/dL [facility] CREATININE 1.00 0.60 - 1.25 [facility] mg/dL [facility] CALCIUM 8.2 (L) 8.6 - 10.6 [facility] mg/dL [facility] eGFR Calculation 73.2 mL/min/1.73m2 [facility] ([facility]) [place] eGFR Calculation 88.8 mL/min/1.73m2 [facility] () [facility] Specimen Blood - ARTERIAL Narrative Performed At Association of Glomerular Filtration Rate [facility] (GFR) and Staging of Kidney Disease* [place] + + --+ + | GFR (mL/min/1.73 [...] abnormalities in imaging tests). Performing Organization Address City/[facility] Phone Number [facility] CLIA: [id number], [address] [place] [address] [facility] POCT GLUCOSE (AUTOMATED) (01/15/2020 8:16 PM CDT) POCT GLU 194 (H) 70 - 110 mg/dL [facility] Specimen Blood Performing Organization Address [facility] Phone Number [facility] CLIA: [id number], [address] [place], [place] [address] [phone] St POCT GLUCOSE (AUTOMATED) (01/15/2020 4:13 PM CDT) POCT GLU 241 (H) 70 - 110 mg/dL [facility] Specimen Blood Performing Organization Address [facility] Phone Number [facility] CLIA: [id number], [address] [place] [address] [phone] St TOTAL IRON BINDING CAPACITY (01/15/2020 2:04 PM CDT) TIBC 218 (L) 250 - 410 ug/dL [facility] Specimen Blood - ARTERIAL Performing Organization Address [facility] Phone Number [facility] CLIA: [id number], [address] [place] [address] [facility] [address] PHOSPHORUS (01/15/2020 2:04 PM CDT) PHOSPHORUS 2.7 2.5 - 5.0 mg/dL [facility] Specimen Blood - ARTERIAL Performing Organization Address [facility] Phone Number [facility] CLIA: [id number], [address] [place] [address] [facility] MAGNESIUM (01/15/2020 2:04 PM CDT) MAGNESIUM 2.2 1.7 - 2.4 mg/dL [facility] Specimen Blood - ARTERIAL Performing Organization Address City/State/Zipcode Phone Number [facility] CLIA: [id number], [address] [place] [address] [facility] BASIC METABOLIC PANEL (NA, K, CL, CO2, GLUCOSE, BUN, CREATININE, CA) (2019 2:04 PM CDT) NA 139 135 - 145 [facility] mmol/L [facility] K 3.7 3.5 - 5.0 [facility] mmol/L [facility] CL 101 98 - 108 mmol/L [facility] CO2 TOTAL 28 23 - 31 mmol/L [facility] AGAP 10 2 - 16 [facility] BUN 40 (H) 7 - 23 mg/dL [facility] GLUCOSE 252 (H) 70 - 110 mg/dL [facility] CREATININE 0.99 0.60 - 1.25 [facility] mg/dL [facility] CALCIUM 7.4 (L) 8.6 - 10.6 [facility] mg/dL [facility] eGFR Calculation 74.1 mL/min/1.73m2 [facility] (Non- [facility] Andorran) [place] eGFR Calculation 89.8 mL/min/1.73m2 [facility] () [facility] Specimen Blood - ARTERIAL Narrative Performed At Association of Glomerular Filtration Rate [facility] (GFR) and Staging of Kidney Disease* CAMPUS [...] abnormalities in imaging tests). Performing Organization Address City/[facility]/Zipcode Phone Number [facility] CLIA: [id number], [address] [place] [address] [facility] [address] POCT GLUCOSE (AUTOMATED) (01/15/2020 11:46 AM CDT) POCT GLU 304 (H) 70 - 110 mg/dL [facility] Specimen Blood Performing Organization Address [facility] Phone Number [facility] CLIA: [id number], [address] [place] [address] St POCT GLUCOSE (AUTOMATED) (01/15/2020 8:03 AM CDT) POCT GLU 269 (H) 70 - 110 mg/dL [facility] Specimen Blood Performing Organization Address [facility] Phone Number [facility] CLIA: [id number], [address] [place] [address] St XR CHEST 1 VW (01/15/2020 4:20 AM CDT) Specimen Impressions Performed At PACS/VR/DOSE 1. Interval extubation and removal of the right IJ Corder-Baltazar catheter. 2. Cardiomegaly with mild pulmonary edema. 3. Stable right middle lobe and lingular atelectasis RL: 3000 AFC: [id number] End of report Narrative Performed At ORDERING CLINICIAN: KIT WESTBROOK PACS/VR/DOSE TECHNIQUE: Single view of the chest INDICATION: Status post CABG COMPARISON: 01/13/2020 DISCUSSION: Status post extubation and removal of the Corder-Baltazar catheter. There is moderate cardiomegaly with mild pulmonary edema. Findings are stable. Atelectasis in the right middle lobe and lingula is stable. There is no large pleural effusion or pneumothorax. The airway is midline. The mediastinal contour is normal. Procedure Note [facility], Radiant Results Inft User - 01/15/2020 11:11 AM CDT ORDERING CLINICIAN: KIT WESTBROOK TECHNIQUE: Single view of the chest INDICATION: Status post CABG COMPARISON: 01/13/2020 DISCUSSION: Status post extubation and removal of the Corder-Baltazar catheter. There is moderate cardiomegaly with mild pulmonary edema. Findings are stable. Atelectasis in the right middle lobe and lingula is stable. There is no large pleural effusion or pneumothorax. The airway is midline. The mediastinal contour is normal. IMPRESSION 1. Interval extubation and removal of the right IJ Corder-Baltazar catheter. 2. Cardiomegaly with mild pulmonary edema. 3. Stable right middle lobe and lingular atelectasis RL: 3000 AFC: [id number] End of report Performing Organization Address [facility] Hospitalcode Phone Number PACS/VR/DOSE FERRITIN SERUM (01/15/2020 12:58 AM CDT) FERRITIN 166.0 18.0 - 464.0 ng/mL [facility] Specimen Blood - CENTRAL VENOUS LINE Narrative Performed At [facility] has been reported to cause a [facility] negative bias, interpret results relative to patient's use of biotin. Performing Organization Address [facility] Hospitalcode Phone Number [facility] CLIA: [id number], [address] [place] [address] [facility] [address] IRON (01/15/2020 12:58 AM CDT) IRON 41 (L) 50 - 160 ug/dL [facility] Specimen Blood - CENTRAL VENOUS LINE Performing Organization Address City/[facility]/Zipcode Phone Number [facility] CLIA: [id number], [address] [place] [address] [facility] [address] CBC WITH DIFFERENTIAL (01/15/2020 12:58 AM CDT) WBC 9.85 4.20 - 10.70 [facility] 10*3/L [facility] RBC 2.35 (L) 4.26 - 5.52 [facility] 10*6/L [facility] HGB 7.3 (L) 12.2 - 16.4 [facility] g/dL [facility] HCT 22.7 (L) 38.4 - 49.3 % [facility] MCV 96.6 (H) 81.7 - 95.6 fL [facility] MCH 31.1 26.1 - 32.7 pg [facility] MCHC 32.2 31.2 - 35.0 [facility] g/dL [facility] RDW-SD 52.5 (H) 38.5 - 51.6 fL [facility] RDW-CV 15.0 12.1 - 15.4 % [facility] PLT 149 (L) 150 - 328 [facility] 10*3/L [facility] MPV 10.2 9.8 - 13.0 fL [facility] NRBC/100 WBC 0.0 0.0 - 10.0 /100 [facility] WBCs [facility] NRBC x10^3 <0.01 10*3/L [facility] GRAN MAT (NEUT) % 75.5 % [facility] IMM GRAN % 0.60 % [facility] LYMPH % 11.7 % [facility] MONO % 9.1 % [facility] EOS % 2.7 % [facility] BASO % 0.4 % [facility] x10^3(ANC) 7.43 (H) 1.99 - 6.95 [facility] 10*3/uL [facility] IMM GRAN x10^3 0.06 0.00 - 0.06 [facility] 10*3/uL [facility] LYMPH x10^3 1.15 1.09 - 3.23 [facility] 10*3/uL [facility] MON[facility] x10^3 0.90 0.36 - 1.02 [facility] 10*3/uL [facility] EOS x10^3 0.27 0.06 - 0.53 [facility] 10*3/uL [facility] BASO x10^3 0.04 0.01 - 0.09 [facility] 10*3/uL [facility] Specimen Blood - CENTRAL VENOUS LINE Performing Organization Address City/State/Zipcode Phone Number [facility] CLIA: [id number], [address] [place] [address] [facility] [address] BASIC METABOLIC PANEL (NA, K, CL, CO2, GLUCOSE, BUN, CREATININE, CA) (2019 12:58 AM CDT) NA 139 135 - 145 [facility] mmol/L [facility] K 3.6 3.5 - 5.0 [facility] mmol/L [facility] CL 102 98 - 108 mmol/L [facility] CO2 TOTAL 30 23 - 31 mmol/L [facility] AGAP 7 2 - 16 [facility] BUN 35 (H) 7 - 23 mg/dL [facility] GLUCOSE 237 (H) 70 - 110 mg/dL [facility] CREATININE 1.11 0.60 - 1.25 [facility] mg/dL [facility] CALCIUM 7.2 (L) 8.6 - 10.6 [facility] mg/dL [facility] eGFR Calculation 64.9 mL/min/1.73m2 [facility] (Non- [facility] Andorran) [place] eGFR Calculation 78.7 mL/min/1.73m2 [facility] () [facility] Specimen Blood - CENTRAL VENOUS LINE Narrative Performed At Association of Glomerular Filtration Rate [facility] (GFR) and Staging of Kidney Disease* CAMPUS [...] abnormalities in imaging tests). Performing Organization Address City/[facility]/Zipcode Phone Number [facility] CLIA: [id number], [address] [place] [address] [facility] [address] PHOSPHORUS (01/15/2020 12:58 AM CDT) PHOSPHORUS 3.3 2.5 - 5.0 mg/dL [facility] Specimen Blood - CENTRAL VENOUS LINE Performing Organization Address [facility] Phone Number [facility] CLIA: [id number], [address] [place] [address] MAGNESIUM (01/15/2020 12:58 AM CDT) MAGNESIUM 2.4 1.7 - 2.4 mg/dL [facility] Specimen Blood - CENTRAL VENOUS LINE Performing Organization Address [facility] Phone Number [facility] CLIA: [id number], [address] [place] [address] [facility] [address] POCT GLUCOSE (AUTOMATED) (01/14/2020 8:42 PM CDT) POCT GLU 272 (H) 70 - 110 mg/dL [facility] Specimen Blood Performing Organization Address [facility] Phone Number [facility] CLIA: [id number], [address] [place] [address] St POCT GLUCOSE (AUTOMATED) (01/14/2020 4:16 PM CDT) POCT GLU 240 (H) 70 - 110 mg/dL [facility] Specimen Blood Performing Organization Address [facility] Phone Number [facility] CLIA: [id number], [address] [place] [address] St XR KUB (01/14/2020 4:15 PM CDT) Specimen Impressions Performed At No bowel distention. PACS/VR/DOSE RL: [id number] END OF REPORT Narrative Performed At Ordering Physician: ISIDRO PULIDO PACS/VR/DOSE Clinical Indication: Abdominal Distention Additional Clinical Information: Comparison: None Technique: There is a single view abdomen but this record for films to obtain the entire abdomen. Findings: There is no bowel distention. There is no visceromegaly. Gallbladder is presumed absent. Procedure Note [facility], Radiant Results Inft User - 01/14/2020 5:21 PM CDT Ordering Physician: ISIDRO PULIDO Clinical Indication: Abdominal Distention Additional Clinical Information: Comparison: None Technique: There is a single view abdomen but this record for films to obtain the entire abdomen. Findings: There is no bowel distention. There is no visceromegaly. Gallbladder is presumed absent. IMPRESSION No bowel distention. RL: [id number] END OF REPORT Performing Organization Address City/State/Zipcode Phone Number PACS/VR/DOSE MAGNESIUM (01/14/2020 3:54 PM CDT) MAGNESIUM 2.4 1.7 - 2.4 mg/dL [facility] Specimen Blood - ARTERIAL Performing Organization Address City/State/Zipcode Phone Number [facility] CLIA: [id number], [address] [place] [address] [facility] [address] BASIC METABOLIC PANEL (NA, K, CL, CO2, GLUCOSE, BUN, CREATININE, CA) (2019 3:54 PM CDT) NA 138 135 - 145 [facility] mmol/L [facility] K 4.0 3.5 - 5.0 [facility] mmol/L [facility] CL 103 98 - 108 mmol/L [facility] CO2 TOTAL 25 23 - 31 mmol/L [facility] AGAP 10 2 - 16 [facility] BUN 29 (H) 7 - 23 mg/dL [facility] GLUCOSE 218 (H) 70 - 110 mg/dL [facility] CREATININE 1.03 0.60 - 1.25 [facility] mg/dL [facility] CALCIUM 7.5 (L) 8.6 - 10.6 [facility] mg/dL [facility] eGFR Calculation 70.8 mL/min/1.73m2 [facility] (Non- [facility] Andorran) [place] eGFR Calculation 85.8 mL/min/1.73m2 [facility] () [facility] Specimen Blood - ARTERIAL Narrative Performed At Association of Glomerular Filtration Rate [facility] (GFR) and Staging of Kidney Disease* [...] tests). Performing Organization Address City/State/Zipcode Phone Number [facility] CLIA: [id number], [address] [place], [place] [address] [facility] Arterial Blood Gas. (01/14/2020 3:53 PM CDT) [facility] PH 7.43 7.35 - 7.45 [facility] PCO2 36 35 - 45 mmHg [facility] PO2 79 (L) 80 - 100 mmHg [facility] HCO3 24 22 - 26 mEq/L [facility] BE -0.6 -3.0 - 3.0 mEq/L [facility] Specimen Blood - ARTERIAL Performing Organization Address [facility]/Zipcode Phone Number [facility] CLIA: [id number], [address] [place] [address] [facility] [address] XR CHEST 1 VW (01/14/2020 3:30 PM CDT) Specimen Narrative Performed At CHEST ONE VIEW PACS/VR/DOSE HISTORY: D/C Chest Tube TECHNIQUE: AP view of the chest is obtained. COMPARISON: 01/14/2020 FINDINGS: Since the previous examination a Corder-Baltazar catheter and pleural drain has been removed. Slightly increased pulmonary vascularity is noted. Linear lung markings are seen in the right upper lobe and left lower lobe. A left pleural effusion is suspected. Heart size is normal. A vascular sheath remains in place with its tip in the superior vena cava. No pneumothorax is seen. Changes of median sternotomy are noted. CONCLUSIONS: 1. Mild pulmonary edema, areas of subsegmental atelectasis and left pleural effusion Procedure Note [facility], Radiant Results Inft User - 01/14/2020 4:06 PM CDT CHEST ONE VIEW HISTORY: D/C Chest Tube TECHNIQUE: AP view of the chest is obtained. COMPARISON: 01/14/2020 FINDINGS: Since the previous examination a Corder-Baltazar catheter and pleural drain has been removed. Slightly increased pulmonary vascularity is noted. Linear lung markings are seen in the right upper lobe and left lower lobe. A left pleural effusion is suspected. Heart size is normal. A vascular sheath remains in place with its tip in the superior vena cava. No pneumothorax is seen. Changes of median sternotomy are noted. CONCLUSIONS: 1. Mild pulmonary edema, areas of subsegmental atelectasis and left pleural effusion Performing Organization Address [facility]/Zipcode Phone Number PACS/VR/DOSE POCT GLUCOSE (AUTOMATED) (01/14/2020 11:10 AM CDT) POCT GLU 186 (H) 70 - 110 mg/dL [facility] Specimen Blood Performing Organization Address City/[facility]/Zipcode Phone Number [facility] CLIA: [id number], [address] [place] [address] St POCT GLUCOSE (AUTOMATED) (01/14/2020 8:09 AM CDT) POCT GLU 159 (H) 70 - 110 mg/dL [facility] Specimen Blood Performing Organization Address City/State/Zipcode Phone Number [facility] CLIA: [id number], [address] [place] [address] St POCT GLUCOSE (AUTOMATED) (01/14/2020 5:21 AM CDT) POCT GLU 180 (H) 70 - 110 mg/dL [facility] Specimen Blood Performing Organization Address City/[facility]/Zipcode Phone Number [facility] CLIA: [id number], [address] [place] [address] [phone] AC PANEL 21 + LACTIC ACID (01/14/2020 4:43 AM CDT) PH 7.36 7.32 - 7.42 [facility] PCO2 EMELY 38 (L) 41 - 51 mmHg [facility] PO2 EMELY 34 25 - 40 mmHg [facility] HCO3 EMELY 21 (L) 24 - 28 mEq/L [facility] AC VBE(BEAKER) -4.5 mEq/L [facility] THB EMELY 9.0 (L) 13.5 - 18.0 g/dL [facility] %O2HB EMELY 58.9 52.0 - 63.0 % [facility] %COHB EMELY 0.6 0.0 - 1.5 % [facility] %METHB EMELY 0.3 (L) 0.4 - 1.5 % [facility] VOL%O2 EMELY 7.5 6.0 - 12.0 % [facility] NA 138 135 - 145 mmol/L [facility] K+ 3.7 3.5 - 5.0 mmol/L [facility] AC CA IONZ 4.50 4.50 - 5.30 mg/dL [facility] GLUCOSE 237 (H) 70 - 110 mg/dL [facility] LACTIC ACID 2.10 0.50 - 2.20 mmol/L [facility] Specimen Blood - CENTRAL VENOUS LINE Performing Organization Address City/State/Zipcode Phone Number [facility] CLIA: [id number], [address] [place] [address] [facility] [address] ABG+COOX+NA+K+GLU+CA2+ (01/14/2020 4:19 AM CDT) PH 7.45 7.35 - 7.45 [facility] PCO2 29 (L) 35 - 45 mmHg [facility] PO2 80 80 - 100 mmHg [facility] HCO3 20 (L) 22 - 26 mEq/L [facility] BE -3.4 (L) -3.0 - 3.0 mEq/L [facility] THB 9.3 (L) 13.5 - 18.0 g/dL [facility] %O2HB 95.5 94.0 - 99.0 % [facility] %COHB ART 0.2 0.0 - 1.5 % [facility] %METHB ART 0.3 (L) 0.4 - 1.5 % [facility] VOL%O2 ART 12.6 (L) 15.0 - 23.0 % [facility] NA 138 135 - 145 mmol/L [facility] K+ 3.7 3.5 - 5.0 mmol/L [facility] AC CA IONZ 4.40 (L) 4.50 - 5.30 mg/dL [facility] GLUCOSE 161 (H) 70 - 110 mg/dL [facility] Specimen Blood Performing Organization Address City/[facility]/Zipcode Phone Number [facility] CLIA: [id number], [address] [place] [address] [facility] [address] XR CHEST 1 VW (01/14/2020 3:57 AM CDT) Specimen Narrative Performed At EXAM: XR CHEST 1 VW PACS/VR/DOSE HISTORY: post op day 3 cabg COMPARISON: None. FINDINGS: The chest tube on the left and the mediastinal drain are unchanged in position. The tip of the Corder-Baltazar catheter is in the main pulmonary artery. Basilar subsegmental atelectasis produces an opacity above the left hemidiaphragm and a small amount of fluid on both sides blunts the costophrenic angles. Fluid in the minor fissure exaggerates that structure; otherwise the right lung is clear. Procedure Note [facility], Radiant Results Inft User - 01/14/2020 8:00 AM CDT EXAM: XR CHEST 1 VW HISTORY: post op day 3 cabg COMPARISON: None. FINDINGS: The chest tube on the left and the mediastinal drain are unchanged in position. The tip of the Corder-Baltazar catheter is in the main pulmonary artery. Basilar subsegmental atelectasis produces an opacity above the left hemidiaphragm and a small amount of fluid on both sides blunts the costophrenic angles. Fluid in the minor fissure exaggerates that structure; otherwise the right lung is clear. Performing Organization Address City/[facility]/Zipcode Phone Number PACS/VR/DOSE POCT GLUCOSE (AUTOMATED) (01/14/2020 3:20 AM CDT) POCT GLU 192 (H) 70 - 110 mg/dL [facility] Specimen Blood Performing Organization Address City/[facility]/Zipcode Phone Number [facility] CLIA: [id number], [address] [place], [place] [address] [phone] St CBC WITH DIFFERENTIAL (01/14/2020 2:29 AM CDT) WBC 10.32 4.20 - 10.70 [facility] 10*3/L [facility] RBC 2.53 (L) 4.26 - 5.52 [facility] 10*6/L [facility] HGB 7.6 (L) 12.2 - 16.4 [facility] g/dL [facility] HCT 24.1 (L) 38.4 - 49.3 % [facility] MCV 95.3 81.7 - 95.6 fL [facility] MCH 30.0 26.1 - 32.7 pg [facility] MCHC 31.5 31.2 - 35.0 [facility] g/dL [facility] RDW-SD 54.2 (H) 38.5 - 51.6 fL [facility] RDW-CV 15.5 (H) 12.1 - 15.4 % [facility] PLT 112 (L) 150 - 328 [facility] 10*3/L [facility] MPV 10.0 9.8 - 13.0 fL [facility] NRBC/100 WBC 0.0 0.0 - 10.0 /100 [facility] WBCs [facility] NRBC x10^3 <0.01 10*3/L [facility] GRAN MAT (NEUT) % 82.6 % [facility] IMM GRAN % 0.60 % [facility] LYMPH % 8.1 % [facility] MONO % 7.1 % [facility] EOS % 1.3 % [facility] BASO % 0.3 % [facility] GRAN MAT x10^3(ANC) 8.53 (H) 1.99 - 6.95 [facility] 10*3/uL [facility] IMM GRAN x10^3 0.06 0.00 - 0.06 [facility] 10*3/uL [facility] LYMPH x10^3 0.84 (L) 1.09 - 3.23 [facility] 10*3/uL [facility] MONO x10^3 0.73 0.36 - 1.02 [facility] 10*3/uL [facility] EOS x10^3 0.13 0.06 - 0.53 [facility] 10*3/uL [facility] BASO x10^3 0.03 0.01 - 0.09 [facility] 10*3/uL [facility] Specimen Blood - CENTRAL VENOUS LINE Performing Organization Address City/State/Zipcode Phone Number [facility] CLIA: [id number], [address] [place] [address] [phone] [facility] [address] PHOSPHORUS (01/14/2020 2:29 AM CDT) PHOSPHORUS 2.4 (L) 2.5 - 5.0 mg/dL [facility] Specimen Blood - CENTRAL VENOUS LINE Performing Organization Address City/[facility] Phone Number [facility] CLIA: [id number], [address] [place] [address] [facility] MAGNESIUM (01/14/2020 2:29 AM CDT) MAGNESIUM 1.9 1.7 - 2.4 mg/dL [facility] Specimen Blood - CENTRAL VENOUS LINE Performing Organization Address [facility] Phone Number [facility] CLIA: [id number], [address] [place] [address] [facility] BASIC METABOLIC PANEL (NA, K, CL, CO2, GLUCOSE, BUN, CREATININE, CA) (2019 2:29 AM CDT) NA 140 135 - 145 [facility] mmol/L [facility] K 3.5 3.5 - 5.0 [facility] mmol/L [facility] CL 105 98 - 108 mmol/L [facility] CO2 TOTAL 25 23 - 31 mmol/L [facility] AGAP 10 2 - 16 [facility] BUN 20 7 - 23 mg/dL [facility] GLUCOSE 184 (H) 70 - 110 mg/dL [facility] CREATININE 0.86 0.60 - 1.25 [facility] mg/dL [facility] CALCIUM 6.9 (L) 8.6 - 10.6 [facility] mg/dL [facility] eGFR Calculation 87.2 mL/min/1.73m2 [facility] (Non- [facility] Andorran) [place] eGFR Calculation 105.7 mL/min/1.73m2 [facility] () [facility] Specimen Blood - CENTRAL VENOUS LINE Narrative Performed At Association of Glomerular Filtration Rate [facility] (GFR) and Staging of Kidney Disease* [place] + + --+ + | GFR (mL/min/1.73 [...] abnormalities in imaging tests). Performing Organization Address City/[facility] Phone Number [facility] CLIA: [id number], [address] [place] [address] [facility] POCT GLUCOSE (AUTOMATED) (01/14/2020 2:08 AM CDT) POCT GLU 201 (H) 70 - 110 mg/dL [facility] Specimen Blood Performing Organization Address [facility]/Zipcode Phone Number [facility] CLIA: [id number], [address] [place] [address] POCT GLUCOSE (AUTOMATED) (01/14/2020 1:18 AM CDT) POCT GLU 181 (H) 70 - 110 mg/dL [facility] Specimen Blood Performing Organization Address [facility] Phone Number [facility] CLIA: [id number], [address] [place] [address] [phone] ACUTE CARE VENOUS BLOOD GAS (01/14/2020 12:06 AM CDT) PH 7.39 7.32 - 7.42 [facility] PCO2 EMELY 39 (L) 41 - 51 mmHg [facility] PO2 EMELY 36 25 - 40 mmHg [facility] HCO3 EMELY 23 (L) 24 - 28 mEq/L [facility] AC VBE(BEAKER) -1.9 mEq/L [facility] Specimen Blood - CENTRAL VENOUS LINE Performing Organization Address City/[facility]/Zipcode Phone Number [facility] CLIA: [id number], [address] [place] [address] SERVICES-[facility] [address] POCT GLUCOSE (AUTOMATED) (01/13/2020 11:05 PM CDT) POCT GLU 134 (H) 70 - 110 mg/dL [facility] Specimen Blood Performing Organization Address City/[facility]/Zipcode Phone Number [facility] CLIA: [id number], [address] [place] [address] [phone] St POCT GLUCOSE (AUTOMATED) (01/13/2020 10:07 PM CDT) POCT GLU 131 (H) 70 - 110 mg/dL [facility] Specimen Blood Performing Organization Address City/[facility] Phone Number [facility] CLIA: [id number], [address] [place] [address] [phone] St POCT GLUCOSE (AUTOMATED) (01/13/2020 9:01 PM CDT) POCT GLU 133 (H) 70 - 110 mg/dL [facility] Specimen Blood Performing Organization Address City/[facility] Phone Number [facility] CLIA: [id number], [address] [place] [address] [phone] St POCT GLUCOSE (AUTOMATED) (01/13/2020 8:05 PM CDT) POCT GLU 145 (H) 70 - 110 mg/dL [facility] Specimen Blood Performing Organization Address [facility] Phone Number [facility] CLIA: [id number], [address] [place] [address] St POCT GLUCOSE (AUTOMATED) (01/13/2020 6:01 PM CDT) POCT GLU 191 (H) 70 - 110 mg/dL [facility] Specimen Blood Performing Organization Address City/[facility] Phone Number [facility] CLIA: [id number], [address] [place] [address] [phone] St POCT GLUCOSE (AUTOMATED) (01/13/2020 5:11 PM CDT) POCT GLU 196 (H) 70 - 110 mg/dL [facility] Specimen Blood Performing Organization Address City/[facility] Phone Number [facility] CLIA: [id number], [address] [place] [address] [phone] St PHOSPHORUS (01/13/2020 5:08 PM CDT) PHOSPHORUS 2.3 (L) 2.5 - 5.0 mg/dL [facility] Specimen Blood - ARTERIAL Performing Organization Address City/[facility] Phone Number [facility] CLIA: [id number], [address] [place], [place] [address] [facility] MAGNESIUM (01/13/2020 5:08 PM CDT) MAGNESIUM 2.1 1.7 - 2.4 mg/dL [facility] Specimen Blood - ARTERIAL Performing Organization Address City/[facility] Phone Number [facility] CLIA: [id number], [address] [place] [address] [facility] [address] BASIC METABOLIC PANEL (NA, K, CL, CO2, GLUCOSE, BUN, CREATININE, CA) (2019 5:08 PM CDT) NA 140 135 - 145 [facility] mmol/L [facility] K 3.7 3.5 - 5.0 [facility] mmol/L [facility] CL 105 98 - 108 mmol/L [facility] CO2 TOTAL 26 23 - 31 mmol/L [facility] AGAP 9 2 - 16 [facility] BUN 18 7 - 23 mg/dL [facility] GLUCOSE 178 (H) 70 - 110 mg/dL [facility] CREATININE 0.88 0.60 - 1.25 [facility] mg/dL [facility] CALCIUM 7.5 (L) 8.6 - 10.6 [facility] mg/dL [facility] eGFR Calculation 84.9 mL/min/1.73m2 [facility] (Non- [facility] Andorran) [place] eGFR Calculation 102.9 mL/min/1.73m2 [facility] () [facility] Specimen Blood - ARTERIAL Narrative Performed At Association of Glomerular Filtration Rate [facility] (GFR) and Staging of Kidney Disease* CAMPUS [...] abnormalities in imaging tests). Performing Organization Address City/[facility]/Zipcode Phone Number [facility] CLIA: [id number], [address] [place] [address] [facility] POCT GLUCOSE (AUTOMATED) (01/13/2020 3:50 PM CDT) POCT GLU 204 (H) 70 - 110 mg/dL [facility] Specimen Blood Performing Organization Address [facility]/Zipcode Phone Number [facility] CLIA: [id number], [address] [place] [address] [phone] St POCT GLUCOSE (AUTOMATED) (01/13/2020 3:14 PM CDT) POCT GLU 195 (H) 70 - 110 mg/dL [facility] Specimen Blood Performing Organization Address City/[facility]/Zipcode Phone Number [facility] CLIA: [id number], [address] [place] [address] [phone] ABG+COOX+NA+K+GLU+CA2+ (01/13/2020 2:10 PM CDT) PH 7.44 7.35 - 7.45 [facility] PCO2 32 (L) 35 - 45 mmHg [facility] PO2 111 (H) 80 - 100 mmHg [facility] HCO3 21 (L) 22 - 26 mEq/L [facility] BE -2.2 -3.0 - 3.0 mEq/L [facility] THB 9.1 (L) 13.5 - 18.0 g/dL [facility] %O2HB 97.6 94.0 - 99.0 % [facility] %COHB ART 0.2 0.0 - 1.5 % [facility] %METHB ART 0.1 (L) 0.4 - 1.5 % [facility] VOL%O2 ART 12.7 (L) 15.0 - 23.0 % [facility] NA 138 135 - 145 mmol/L [facility] K+ 4.0 3.5 - 5.0 mmol/L [facility] AC CA IONZ 4.20 (L) 4.50 - 5.30 mg/dL [facility] GLUCOSE 162 (H) 70 - 110 mg/dL [facility] Specimen Blood - ARTERIAL Performing Organization Address City/[facility]/Zipcode Phone Number [facility] CLIA: [id number], [address] [place] [address] [facility] POCT GLUCOSE (AUTOMATED) (01/13/2020 1:06 PM CDT) POCT GLU 145 (H) 70 - 110 mg/dL [facility] Specimen Blood Performing Organization Address City/State/Zipcode Phone Number [facility] CLIA: [id number], [address] [place] [address] ABG+COOX+NA+K+GLU+CA2+ (01/13/2020 11:57 AM CDT) PH 7.46 (H) 7.35 - 7.45 [facility] PCO2 34 (L) 35 - 45 mmHg [facility] PO2 84 80 - 100 mmHg [facility] HCO3 24 22 - 26 mEq/L [facility] BE 0.3 -3.0 - 3.0 mEq/L [facility] THB 9.2 (L) 13.5 - 18.0 g/dL [facility] %O2HB 95.9 94.0 - 99.0 % [facility] %COHB ART 0.0 0.0 - 1.5 % [facility] %METHB ART 0.3 (L) 0.4 - 1.5 % [facility] VOL%O2 ART 12.5 (L) 15.0 - 23.0 % [facility] NA 138 135 - 145 mmol/L [facility] K+ 3.9 3.5 - 5.0 mmol/L [facility] AC CA IONZ 4.30 (L) 4.50 - 5.30 mg/dL [facility] GLUCOSE 140 (H) 70 - 110 mg/dL [facility] Specimen Blood - ARTERIAL Performing Organization Address City/State/Zipcode Phone Number [facility] CLIA: [id number], [address] [place] [address] [facility] POCT GLUCOSE (AUTOMATED) (01/13/2020 11:02 AM CDT) POCT GLU 152 (H) 70 - 110 mg/dL [facility] Specimen Blood Performing Organization Address City/[facility]/Zipcode Phone Number [facility] CLIA: [id number], [address] [place] [address] St POCT GLUCOSE (AUTOMATED) (01/13/2020 9:54 AM CDT) POCT GLU 154 (H) 70 - 110 mg/dL [facility] Specimen Blood Performing Organization Address City/[facility]/Zipcode Phone Number [facility] CLIA: [id number], [address] [place] [address] [phone] St MAGNESIUM (01/13/2020 9:42 AM CDT) MAGNESIUM 2.5 (H) 1.7 - 2.4 mg/dL [facility] Specimen Blood - ARTERIAL Performing Organization Address City/[facility] Phone Number [facility] CLIA: [id number], [address] [place] [phone] [facility] PHOSPHORUS (01/13/2020 9:42 AM CDT) PHOSPHORUS 1.8 (L) 2.5 - 5.0 mg/dL [facility] Specimen Blood - ARTERIAL Performing Organization Address City/[facility] Hospitalcoms Phone Number [facility] CLIA: [id number], [address] [place] [phone] [facility] POTASSIUM SERUM (01/13/2020 9:42 AM CDT) K 4.0 3.5 - 5.0 mmol/L [facility] Specimen Blood - ARTERIAL Performing Organization Address City/[facility] Hospitalcode Phone Number [facility] CLIA: [id number], [address] [place] [address] [facility] [address] POCT GLUCOSE (AUTOMATED) (01/13/2020 8:00 AM CDT) POCT GLU 160 (H) 70 - 110 mg/dL [facility] Specimen Blood Performing Organization Address City/[facility] Hospitalcode Phone Number [facility] CLIA: [id number], [address] [place] [address] St POCT GLUCOSE (AUTOMATED) (01/13/2020 6:51 AM CDT) POCT GLU 187 (H) 70 - 110 mg/dL [facility] Specimen Blood Performing Organization Address City/[facility]/Zipcode Phone Number [facility] CLIA: [id number], [address] [place] [address] [phone] St XR CHEST 1 VW (01/13/2020 6:15 AM CDT) Specimen Impressions Performed At Improved aeration with residual edema type pattern. PACS/VR/DOSE Atelectasis and effusion left base. Narrative Performed At CLINICAL HISTORY: PACS/VR/DOSE s/p cabg COMPARISON: 01/11/2020 TECHNIQUE: Portable view of the chest performed at 01/13/2020 3:00 AM FINDINGS: Right IJ main PA catheter line. ET tube 26 mm of taz. Median sternotomy wires. Left chest tube. Improved aeration. There is diffuse interstitial thickening and indistinctness of the pulmonary vasculature, suggesting pulmonary edema. Left pleural effusion. No pneumothorax. Procedure Note [facility], Radiant Results Inft User - 01/13/2020 5:20 PM CDT CLINICAL HISTORY: s/p cabg COMPARISON: 01/11/2020 TECHNIQUE: Portable view of the chest performed at 01/13/2020 3:00 AM FINDINGS: Right IJ main PA catheter line. ET tube 26 mm of taz. Median sternotomy wires. Left chest tube. Improved aeration. There is diffuse interstitial thickening and indistinctness of the pulmonary vasculature, suggesting pulmonary edema. Left pleural effusion. No pneumothorax. IMPRESSION Improved aeration with residual edema type pattern. Atelectasis and effusion left base. Performing Organization Address City/State/Zipcode Phone Number PACS/VR/DOSE ABG+COOX+NA+K+GLU+CA2+ (01/13/2020 5:21 AM CDT) PH 7.45 7.35 - 7.45 [facility] PCO2 36 35 - 45 mmHg [facility] PO2 76 (L) 80 - 100 mmHg [facility] HCO3 24 22 - 26 mEq/L [facility] BE 0.4 -3.0 - 3.0 mEq/L [facility] THB 9.2 (L) 13.5 - 18.0 g/dL [facility] %O2HB 94.8 94.0 - 99.0 % [facility] %COHB ART 0.3 0.0 - 1.5 % [facility] %METHB ART 0.0 (L) 0.4 - 1.5 % [facility] VOL%O2 ART 12.4 (L) 15.0 - 23.0 % [facility] NA 137 135 - 145 mmol/L [facility] K+ 4.0 3.5 - 5.0 mmol/L [facility] AC CA IONZ 4.30 (L) 4.50 - 5.30 mg/dL [facility] GLUCOSE 190 (H) 70 - 110 mg/dL [facility] Specimen Blood - ARTERIAL Performing Organization Address City/State/Zipcode Phone Number [facility] CLIA: [id number], [address] [place] [address] [facility] [address] AC PANEL 21 + LACTIC ACID (01/13/2020 3:23 AM CDT) PH 7.43 (H) 7.32 - 7.42 [facility] PCO2 EMELY 38 (L) 41 - 51 mmHg [facility] PO2 EMELY 29 25 - 40 mmHg [facility] HCO3 EMELY 25 24 - 28 mEq/L [facility] AC VBE(BEAKER) 0.6 mEq/L [facility] THB EMELY 10.8 (L) 13.5 - 18.0 g/dL [facility] %O2HB EMELY 54.6 52.0 - 63.0 % [facility] %COHB EMELY 0.7 0.0 - 1.5 % [facility] %METHB EMELY 0.3 (L) 0.4 - 1.5 % [facility] VOL%O2 EMELY 8.3 6.0 - 12.0 % [facility] NA 139 135 - 145 mmol/L [facility] K+ 3.9 3.5 - 5.0 mmol/L [facility] AC CA IONZ 4.40 (L) 4.50 - 5.30 mg/dL [facility] GLUCOSE 166 (H) 70 - 110 mg/dL [facility] LACTIC ACID 1.21 0.50 - 2.20 [facility] mmol/L [facility] Specimen Blood - VENOUS Performing Organization Address City/[facility]/Zipcode Phone Number [facility] CLIA: [id number], [address] [place], [place] [address] [facility] [address] LIPID PANEL (80196)(TOTAL CHOLESTEROL, TRIGLYCERIDES, HDL) (01/13/2020 3:05 AM CDT) CHOL 60 (L) 120 - 200 mg/dL [facility] HDL 16 (L) >40 mg/dL [facility] HDLC RATIO 3.8 <=5.0 [facility] TRIG 328 (H) 30 - 170 mg/dL [facility] LDL CHOL -22 <=160 mg/dL [facility] VLDL 66 (H) 5 - 60 mg/dL [facility] Specimen Blood - ARTERIAL Performing Organization Address City/[facility]/Zipcode Phone Number [facility] CLIA: [id number], [address] [place], [place] [address] [facility] [address] CBC WITH DIFFERENTIAL (01/13/2020 3:05 AM CDT) WBC 9.19 4.20 - 10.70 [facility] 10*3/L [facility] RBC 2.72 (L) 4.26 - 5.52 [facility] 10*6/L [facility] HGB 8.4 (L) 12.2 - 16.4 [facility] g/dL [facility] HCT 25.4 (L) 38.4 - 49.3 % [facility] MCV 93.4 81.7 - 95.6 fL [facility] MCH 30.9 26.1 - 32.7 pg [facility] MCHC 33.1 31.2 - 35.0 [facility] g/dL [facility] RDW-SD 53.1 (H) 38.5 - 51.6 fL [facility] RDW-CV 15.8 (H) 12.1 - 15.4 % [facility] PLT 106 (L) 150 - 328 [facility] 10*3/L [facility] MPV 9.9 9.8 - 13.0 fL [facility] NRBC/100 WBC 0.0 0.0 - 10.0 /100 [facility] WBCs [facility] NRBC x10^3 <0.01 10*3/L [facility] GRAN MAT (NEUT) % 79.6 % [facility] IMM GRAN % 0.50 % [facility] LYMPH % 9.9 % [facility] MONO % 9.2 % [facility] EOS % 0.5 % [facility] BASO % 0.3 % [facility] GRAN MAT x10^3(ANC) 7.30 (H) 1.99 - 6.95 [facility] 10*3/uL [facility] IMM GRAN x10^3 0.05 0.00 - 0.06 [facility] 10*3/uL [facility] LYMPH x10^3 0.91 (L) 1.09 - 3.23 [facility] 10*3/uL [facility] MONO x10^3 0.85 0.36 - 1.02 [facility] 10*3/uL [facility] EOS x10^3 0.05 (L) 0.06 - 0.53 [facility] 10*3/uL [facility] BASO x10^3 0.03 0.01 - 0.09 [facility] 10*3/uL [facility] Specimen Blood - ARTERIAL Performing Organization Address City/State/Zipcode Phone Number [facility] CLIA: [id number], [address] [place] [address] [facility] MAGNESIUM (01/13/2020 3:05 AM CDT) MAGNESIUM 2.4 1.7 - 2.4 mg/dL [facility] Specimen Blood - ARTERIAL Performing Organization Address City/State/Zipcode Phone Number [facility] CLIA: [id number], [address] [place] [address] [facility] [address] BASIC METABOLIC PANEL (NA, K, CL, CO2, GLUCOSE, BUN, CREATININE, CA) (2019 3:05 AM CDT) NA 139 135 - 145 [facility] mmol/L [facility] K 3.9 3.5 - 5.0 [facility] mmol/L [facility] CL 106 98 - 108 mmol/L [facility] CO2 TOTAL 27 23 - 31 mmol/L [facility] AGAP 6 2 - 16 [facility] BUN 19 7 - 23 mg/dL [facility] GLUCOSE 164 (H) 70 - 110 mg/dL [facility] CREATININE 0.86 0.60 - 1.25 [facility] mg/dL [facility] CALCIUM 7.3 (L) 8.6 - 10.6 [facility] mg/dL [facility] eGFR Calculation 87.2 mL/min/1.73m2 [facility] (Non- [facility] Andorran) [place] eGFR Calculation 105.7 mL/min/1.73m2 [facility] () [facility] Specimen Blood - ARTERIAL Narrative Performed At Association of Glomerular Filtration Rate [facility] (GFR) and Staging of Kidney Disease* [place] + + --+ + | GFR (mL/min/1.73 [...] tests). Performing Organization Address City/State/Zipcode Phone Number [facility] CLIA: [id number], [address] [place] [address] [facility] [address] AC PANEL 20 + LACTIC ACID (01/13/2020 3:05 AM CDT) PH 7.48 (H) 7.35 - 7.45 [facility] PCO2 36 35 - 45 mmHg [facility] PO2 84 80 - 100 mmHg [facility] HCO3 26 22 - 26 mEq/L [facility] BE 2.2 -3.0 - 3.0 mEq/L [facility] THB 10.5 (L) 13.5 - 18.0 g/dL [facility] %O2HB 95.5 94.0 - 99.0 % [facility] %COHB ART 0.3 0.0 - 1.5 % [facility] %METHB ART 0.3 (L) 0.4 - 1.5 % [facility] VOL%O2 ART 14.2 (L) 15.0 - 23.0 % [facility] NA 139 135 - 145 mmol/L [facility] K+ 3.9 3.5 - 5.0 mmol/L [facility] AC CA IONZ 4.30 (L) 4.50 - 5.30 mg/dL [facility] GLUCOSE 171 (H) 70 - 110 mg/dL [facility] LACTIC ACID 1.49 0.50 - 2.20 mmol/L [facility] Specimen Blood - ARTERIAL Performing Organization Address City/[facility]/Zipcode Phone Number [facility] CLIA: [id number], [address] [place] [address] [facility] [address] POCT GLUCOSE (AUTOMATED) (01/13/2020 2:39 AM CDT) POCT GLU 180 (H) 70 - 110 mg/dL [facility] Specimen Blood Performing Organization Address City/[facility]/Zipcode Phone Number [facility] CLIA: [id number], [address] [place] [address] [phone] POCT GLUCOSE (AUTOMATED) (01/13/2020 12:15 AM CDT) POCT GLU 181 (H) 70 - 110 mg/dL [facility] Specimen Blood Performing Organization Address City/[facility] Phone Number [facility] CLIA: [id number], [address] [place] [address] St ABG+COOX+NA+K+GLU+CA2+ (01/12/2020 10:02 PM CDT) PH 7.47 (H) 7.35 - 7.45 [facility] PCO2 34 (L) 35 - 45 mmHg [facility] PO2 77 (L) 80 - 100 mmHg [facility] HCO3 24 22 - 26 mEq/L [facility] BE 0.8 -3.0 - 3.0 mEq/L [facility] THB 10.7 (L) 13.5 - 18.0 g/dL [facility] %O2HB 95.3 94.0 - 99.0 % [facility] %COHB ART 0.2 0.0 - 1.5 % [facility] %METHB ART 0.1 (L) 0.4 - 1.5 % [facility] VOL%O2 ART 14.4 (L) 15.0 - 23.0 % [facility] NA 139 135 - 145 mmol/L [facility] K+ 4.0 3.5 - 5.0 mmol/L [facility] AC CA IONZ 4.20 (L) 4.50 - 5.30 mg/dL [facility] GLUCOSE 170 (H) 70 - 110 mg/dL [facility] Specimen Blood - ARTERIAL Performing Organization Address City/[facility]/Zipcode Phone Number [facility] CLIA: [id number], [address] [place] [address] [facility] MAGNESIUM (01/12/2020 7:59 PM CDT) MAGNESIUM 2.2 1.7 - 2.4 mg/dL [facility] Specimen Blood - ARTERIAL Performing Organization Address City/[facility] Phone Number [facility] CLIA: [id number], [address] [place] [address] [facility] [address] BASIC METABOLIC PANEL (NA, K, CL, CO2, GLUCOSE, BUN, CREATININE, CA) (2019 7:59 PM CDT) NA 139 135 - 145 [facility] mmol/L [facility] K 4.2 3.5 - 5.0 [facility] mmol/L [facility] CL 106 98 - 108 mmol/L [facility] CO2 TOTAL 25 23 - 31 mmol/L [facility] AGAP 8 2 - 16 [facility] BUN 18 7 - 23 mg/dL [facility] GLUCOSE 151 (H) 70 - 110 mg/dL [facility] CREATININE 0.87 0.60 - 1.25 [facility] mg/dL [facility] CALCIUM 7.5 (L) 8.6 - 10.6 [facility] mg/dL [facility] eGFR Calculation 86.0 mL/min/1.73m2 [facility] (Non- [facility] eGFR Calculation 104.3 mL/min/1.73m2 [facility] () [facility] Specimen Blood - ARTERIAL Narrative Performed At Association of Glomerular Filtration Rate [facility] (GFR) and Staging of Kidney Disease* [place] + + --+ + | GFR (mL/min/1.73 [...] tests). Performing Organization Address City/State/Zipcode Phone Number [facility] CLIA: [id number], [address] [place], [place] [address] [facility] [address] AC PANEL 20 + LACTIC ACID (01/12/2020 7:59 PM CDT) PH 7.47 (H) 7.35 - 7.45 [facility] PCO2 26 (L) 35 - 45 mmHg [facility] PO2 78 (L) 80 - 100 mmHg [facility] HCO3 19 (L) 22 - 26 mEq/L [facility] BE -3.9 (L) -3.0 - 3.0 mEq/L [facility] THB 9.9 (L) 13.5 - 18.0 g/dL [facility] %O2HB 94.5 94.0 - 99.0 % [facility] %COHB ART 0.3 0.0 - 1.5 % [facility] %METHB ART 0.3 (L) 0.4 - 1.5 % [facility] VOL%O2 ART 13.2 (L) 15.0 - 23.0 % [facility] NA 139 135 - 145 mmol/L [facility] K+ 4.2 3.5 - 5.0 mmol/L [facility] AC CA IONZ 4.50 4.50 - 5.30 mg/dL [facility] GLUCOSE 142 (H) 70 - 110 mg/dL [facility] LACTIC ACID 1.09 0.50 - 2.20 mmol/L [facility] Specimen Blood - ARTERIAL Performing Organization Address City/[facility]/Zipcode Phone Number [facility] CLIA: [id number], [address] [place] [address] [facility] [address] POCT GLUCOSE (AUTOMATED) (01/12/2020 5:57 PM CDT) POCT GLU 154 (H) 70 - 110 mg/dL [facility] Specimen Blood Performing Organization Address City/[facility] Phone Number [facility] CLIA: [id number], [address] [place], [place] [address] [phone] St POCT GLUCOSE (AUTOMATED) (01/12/2020 3:56 PM CDT) POCT GLU 141 (H) 70 - 110 mg/dL [facility] Specimen Blood Performing Organization Address City/[facility] Phone Number [facility] CLIA: [id number], [address] [place], [place] [address] St PHOSPHORUS (01/12/2020 3:48 PM CDT) PHOSPHORUS 2.9 2.5 - 5.0 mg/dL [facility] Specimen Blood - ARTERIAL Performing Organization Address City/[facility] Phone Number [facility] CLIA: [id number], [address] [place] [address] [facility] [address] MAGNESIUM (01/12/2020 3:48 PM CDT) MAGNESIUM 2.4 1.7 - 2.4 mg/dL [facility] Specimen Blood - ARTERIAL Performing Organization Address City/State/Zipcode Phone Number [facility] CLIA: [id number], [address] [place] [address] POTASSIUM SERUM (01/12/2020 3:48 PM CDT) K 3.9 3.5 - 5.0 mmol/L [facility] Specimen Blood - ARTERIAL Performing Organization Address City/[facility]/Zipcode Phone Number [facility] CLIA: [id number], [address] [place] [address] [facility] [address] POCT GLUCOSE (AUTOMATED) (01/12/2020 2:02 PM CDT) POCT GLU 141 (H) 70 - 110 mg/dL [facility] Specimen Blood Performing Organization Address City/[facility]/Zipcode Phone Number [facility] CLIA: [id number], [address] [place] [address] [phone] St MAGNESIUM (01/12/2020 12:15 PM CDT) MAGNESIUM 2.6 (H) 1.7 - 2.4 mg/dL [facility] Specimen Blood - ARTERIAL Performing Organization Address City/[facility]/Zipcode Phone Number [facility] CLIA: [id number], [address] [place] [phone] [facility] [address] POTASSIUM SERUM (01/12/2020 12:15 PM CDT) K 3.8 3.5 - 5.0 mmol/L [facility] Specimen Blood - ARTERIAL Performing Organization Address City/[facility]/Zipcode Phone Number [facility] CLIA: [id number], [address] [place] [address] [facility] [address] PHOSPHORUS (01/12/2020 12:15 PM CDT) PHOSPHORUS 3.0 2.5 - 5.0 mg/dL [facility] [facility] Specimen Blood - ARTERIAL Performing Organization Address City/[facility]/Zipcode Phone Number [facility] CLIA: [id number], [address] [place] [address] [facility] POCT GLUCOSE (AUTOMATED) (01/12/2020 12:06 PM CDT) POCT GLU 156 (H) 70 - 110 mg/dL [facility] Specimen Blood Performing Organization Address City/[facility] Phone Number [facility] CLIA: [id number], [address] [place] [address] ABG+COOX+NA+K+GLU+CA2+ (01/12/2020 11:32 AM CDT) PH 7.46 (H) 7.35 - 7.45 [facility] PCO2 35 35 - 45 mmHg [facility] PO2 63 (L) 80 - 100 mmHg [facility] HCO3 24 22 - 26 mEq/L [facility] BE 0.3 -3.0 - 3.0 mEq/L [facility] THB 9.8 (L) 13.5 - 18.0 g/dL [facility] %O2HB 92.4 (L) 94.0 - 99.0 % [facility] %COHB ART 0.3 0.0 - 1.5 % [facility] %METHB ART 0.3 (L) 0.4 - 1.5 % [facility] VOL%O2 ART 12.8 (L) 15.0 - 23.0 % [facility] NA 139 135 - 145 mmol/L [facility] K+ 3.9 3.5 - 5.0 mmol/L [facility] AC CA IONZ 4.40 (L) 4.50 - 5.30 mg/dL [facility] GLUCOSE 154 (H) 70 - 110 mg/dL [facility] Specimen Blood - ARTERIAL Performing Organization Address City/[facility] Phone Number [facility] CLIA: [id number], [address] [place] [address] [facility] POCT GLUCOSE (AUTOMATED) (01/12/2020 10:01 AM CDT) POCT GLU 167 (H) 70 - 110 mg/dL [facility] Specimen Blood Performing Organization Address City/[facility]/Zipcode Phone Number [facility] CLIA: [id number], [address] [place] [address] ABG+COOX+NA+K+GLU+CA2+ (01/12/2020 8:56 AM CDT) Pathologist [facility] PH 7.44 7.35 - 7.45 [facility] PCO2 37 35 - 45 mmHg [facility] PO2 69 (L) 80 - 100 mmHg [facility] HCO3 24 22 - 26 mEq/L [facility] BE 0.2 -3.0 - 3.0 mEq/L [facility] THB 10.1 (L) 13.5 - 18.0 g/dL [facility] %O2HB 93.6 (L) 94.0 - 99.0 % [facility] %COHB ART 0.3 0.0 - 1.5 % [facility] %METHB ART 0.0 (L) 0.4 - 1.5 % [facility] VOL%O2 ART 13.4 (L) 15.0 - 23.0 % [facility] NA 140 135 - 145 mmol/L [facility] K+ 4.0 3.5 - 5.0 mmol/L [facility] AC CA IONZ 4.40 (L) 4.50 - 5.30 mg/dL [facility] GLUCOSE 160 (H) 70 - 110 mg/dL [facility] Specimen Blood - ARTERIAL Performing Organization Address City/[facility]/Zipcode Phone Number [facility] CLIA: [id number], [address] [place] [address] [facility] [address] PROFILE / HEMOGRAM (01/12/2020 8:18 AM CDT) WBC 9.64 4.20 - 10.70 [facility] 10*3/L [facility] RBC 3.04 (L) 4.26 - 5.52 [facility] 10*6/L [facility] HGB 9.5 (L) 12.2 - 16.4 g/dL [facility] HCT 28.1 (L) 38.4 - 49.3 % [facility] MCH 31.3 26.1 - 32.7 pg [facility] MCV 92.4 81.7 - 95.6 fL [facility] MCHC 33.8 31.2 - 35.0 g/dL [facility] PLT 125 (L) 150 - 328 10*3/L [facility] MPV 9.4 (L) 9.8 - 13.0 fL [facility] RDW-CV 15.7 (H) 12.1 - 15.4 % [facility] RDW-SD 52.5 (H) 38.5 - 51.6 fL [facility] NRBC x10^3 <0.01 10*3/L [facility] NRBC/100 WBC 0.0 0.0 - 10.0 /100 [facility] WBCs [facility] IPF % [facility] Specimen Blood - ARTERIAL Performing Organization Address City/[facility] Phone Number [facility] CLIA: [id number], [address] [place], [place] [address] [facility] PHOSPHORUS (01/12/2020 8:18 AM CDT) PHOSPHORUS 3.1 2.5 - 5.0 mg/dL [facility] Specimen Blood - ARTERIAL Performing Organization Address City/[facility]/Zipcode Phone Number [facility] CLIA: [id number], [address] [place], [place] [id number] [facility] MAGNESIUM (01/12/2020 8:18 AM CDT) MAGNESIUM 2.1 1.7 - 2.4 mg/dL [facility] Specimen Blood - ARTERIAL Performing Organization Address City/State/Zipcode Phone Number [facility] CLIA: [id number], [address] [place] [address] [facility] BASIC METABOLIC PANEL (NA, K, CL, CO2, GLUCOSE, BUN, CREATININE, CA) (2019 8:18 AM CDT) NA 141 135 - 145 [facility] mmol/L [facility] K 4.0 3.5 - 5.0 [facility] mmol/L [facility] CL 107 98 - 108 mmol/L [facility] CO2 TOTAL 28 23 - 31 mmol/L [facility] AGAP 6 2 - 16 [facility] BUN 20 7 - 23 mg/dL [facility] GLUCOSE 156 (H) 70 - 110 mg/dL [facility] CREATININE 0.85 0.60 - 1.25 [facility] mg/dL [facility] CALCIUM 8.3 (L) 8.6 - 10.6 [facility] mg/dL [facility] eGFR Calculation 88.4 mL/min/1.73m2 [facility] ([facility] [place] eGFR Calculation 107.1 mL/min/1.73m2 [facility] () [facility] Specimen Blood - ARTERIAL Narrative Performed At Association of Glomerular Filtration Rate [facility] (GFR) and Staging of Kidney Disease* [place] + + --+ + | GFR (mL/min/1.73 [...] tests). Performing Organization Address City/State/Zipcode Phone Number [facility] CLIA: [id number], [address] [place] [address] [facility] POCT GLUCOSE (AUTOMATED) (01/12/2020 7:50 AM CDT) POCT GLU 170 (H) 70 - 110 mg/dL [facility] Specimen Blood Performing Organization Address [facility]/Zipcode Phone Number [facility] CLIA: [id number], [address] [place] [address] [phone] St ABG+COOX+NA+K+GLU+CA2+ (01/12/2020 7:19 AM CDT) PH 7.45 7.35 - 7.45 [facility] PCO2 31 (L) 35 - 45 mmHg [facility] PO2 72 (L) 80 - 100 mmHg [facility] HCO3 21 (L) 22 - 26 mEq/L [facility] BE -2.3 -3.0 - 3.0 mEq/L [facility] THB 10.0 (L) 13.5 - 18.0 g/dL [facility] %O2HB 93.8 (L) 94.0 - 99.0 % [facility] %COHB ART 0.3 0.0 - 1.5 % [facility] %METHB ART 0.0 (L) 0.4 - 1.5 % [facility] VOL%O2 ART 13.3 (L) 15.0 - 23.0 % [facility] NA 140 135 - 145 mmol/L [facility] K+ 4.1 3.5 - 5.0 mmol/L [facility] AC CA IONZ 4.50 4.50 - 5.30 mg/dL [facility] GLUCOSE 152 (H) 70 - 110 mg/dL [facility] Specimen Blood - ARTERIAL Performing Organization Address City/State/Zipcode Phone Number [facility] CLIA: [id number], [address] [place] [address] [facility] [address] Chest 1 View (01/12/2020 6:18 AM CDT) Specimen Narrative Performed At EXAM: XR CHEST 1 VW PACS/VR/DOSE HISTORY: s/p open heart surgery COMPARISON: None. FINDINGS: The heart is slightly enlarged, not different than noted previously. Pleural effusion persists on the left and mild hilar vascular congestion is present on both sides. A chest tube drains the pleural space on the left, unchanged in position. The tip of the Corder-Baltazar catheter is in the main pulmonary artery. The tip of the endotracheal tube is at the lower level of the clavicles and a nasogastric tube passes through the thorax and into the stomach. Procedure Note [facility], Radiant Results Inft User - 01/12/2020 8:31 AM CDT EXAM: XR CHEST 1 VW HISTORY: s/p open heart surgery COMPARISON: None. FINDINGS: The heart is slightly enlarged, not different than noted previously. Pleural effusion persists on the left and mild hilar vascular congestion is present on both sides. A chest tube drains the pleural space on the left, unchanged in position. The tip of the Corder-Baltazar catheter is in the main pulmonary artery. The tip of the endotracheal tube is at the lower level of the clavicles and a nasogastric tube passes through the thorax and into the stomach. Performing Organization Address City/State/Zipcode Phone Number PACS/VR/DOSE POCT GLUCOSE (AUTOMATED) (01/12/2020 6:00 AM CDT) POCT GLU 186 (H) 70 - 110 mg/dL [facility] Specimen Blood Performing Organization Address City/[facility]/Zipcode Phone Number [facility] CLIA: [id number], [address] [place] [address] [phone] St POCT GLUCOSE (AUTOMATED) (01/12/2020 4:11 AM CDT) POCT GLU 170 (H) 70 - 110 mg/dL [facility] Specimen Blood Performing Organization Address City/State/Zipcode Phone Number [facility] CLIA: [id number], [address] [place] [address] [phone] MAGNESIUM (01/12/2020 4:05 AM CDT) MAGNESIUM 2.3 1.7 - 2.4 mg/dL [facility] Specimen Blood - ARTERIAL Performing Organization Address City/State/Zipcode Phone Number [facility] CLIA: [id number], [address] [place], [place] [address] [facility] [address] AC PANEL 21 + LACTIC ACID (01/12/2020 4:05 AM CDT) PH 7.40 7.32 - 7.42 [facility] PCO2 EMELY 42 41 - 51 mmHg [facility] PO2 EMELY 29 25 - 40 mmHg [facility] HCO3 EMELY 25 24 - 28 mEq/L [facility] AC VBE(BEAKER) -0.1 mEq/L [facility] THB EMELY 9.9 (L) 13.5 - 18.0 g/dL [facility] %O2HB EMELY 58.5 52.0 - 63.0 % [facility] %COHB EMELY 0.6 0.0 - 1.5 % [facility] %METHB EMELY 0.0 (L) 0.4 - 1.5 % [facility] VOL%O2 EMELY 8.1 6.0 - 12.0 % [facility] NA 142 135 - 145 mmol/L [facility] K+ 4.0 3.5 - 5.0 mmol/L [facility] AC CA IONZ 4.60 4.50 - 5.30 mg/dL [facility] GLUCOSE 170 (H) 70 - 110 mg/dL [facility] LACTIC ACID 2.20 0.50 - 2.20 mmol/L [facility] Specimen Blood - ARTERIAL Performing Organization Address City/State/Zipcode Phone Number [facility] CLIA: [id number], [address] [place], [place] [address] [facility] [address] CBC WITH DIFFERENTIAL (01/12/2020 4:05 AM CDT) WBC 9.71 4.20 - 10.70 [facility] 10*3/L [facility] RBC 3.04 (L) 4.26 - 5.52 [facility] 10*6/L [facility] HGB 9.5 (L) 12.2 - 16.4 [facility] g/dL [facility] HCT 27.6 (L) 38.4 - 49.3 % [facility] MCV 90.8 81.7 - 95.6 fL [facility] MCH 31.3 26.1 - 32.7 pg [facility] MCHC 34.4 31.2 - 35.0 [facility] g/dL [facility] RDW-SD 50.4 38.5 - 51.6 fL [facility] RDW-CV 15.6 (H) 12.1 - 15.4 % [facility] PLT 141 (L) 150 - 328 [facility] 10*3/L [facility] MPV 9.4 (L) 9.8 - 13.0 fL [facility] NRBC/100 WBC 0.0 0.0 - 10.0 /100 [facility] WBCs [facility] NRBC x10^3 <0.01 10*3/L [facility] GRAN MAT (NEUT) % 78.0 % [facility] IMM GRAN % 0.60 % [facility] LYMPH % 10.0 % [facility] MONO % 11.0 % [facility] EOS % 0.1 % [facility] BASO % 0.3 % [facility] GRAN MAT x10^3(ANC) 7.57 (H) 1.99 - 6.95 [facility] 10*3/uL [facility] IMM GRAN x10^3 0.06 0.00 - 0.06 [facility] 10*3/uL [facility] LYMPH x10^3 0.97 (L) 1.09 - 3.23 [facility] 10*3/uL [facility] MONO x10^3 1.07 (H) 0.36 - 1.02 [facility] 10*3/uL [facility] EOS x10^3 <0.03 (L) 0.06 - 0.53 [facility] 10*3/uL [facility] BASO x10^3 0.03 0.01 - 0.09 [facility] 10*3/uL [facility] Specimen Blood - ARTERIAL Performing Organization Address City/State/Zipcode Phone Number [facility] CLIA: [id number], [address] [place], [place] [phone] [facility] [address] Basic Metabolic Panel (NA, K, CL, CO2, GLUCOSE, BUN, CREATININE, CA) (2019 4:05 AM CDT) NA 140 135 - 145 [facility] mmol/L [facility] K 4.0 3.5 - 5.0 [facility] mmol/L [facility] CL 106 98 - 108 mmol/L [facility] CO2 TOTAL 25 23 - 31 mmol/L [facility] AGAP 9 2 - 16 [facility] BUN 22 7 - 23 mg/dL [facility] GLUCOSE 162 (H) 70 - 110 mg/dL [facility] CREATININE 0.86 0.60 - 1.25 [facility] mg/dL [facility] CALCIUM 8.0 (L) 8.6 - 10.6 [facility] mg/dL [facility] eGFR Calculation 87.2 mL/min/1.73m2 [facility] (Non- [facility] [place]ran) [place] eGFR Calculation 105.7 mL/min/1.73m2 [facility] () [facility] Specimen Blood - ARTERIAL Narrative Performed At Association of Glomerular Filtration Rate [facility] (GFR) and Staging of Kidney Disease* [place] + + --+ + | GFR (mL/min/1.73 [...] tests). Performing Organization Address City/State/Zipcode Phone Number [facility] CLIA: [id number], [address] [place], [place] [address] [facility] [address] ABG+COOX+NA+K+GLU+CA2+ (01/12/2020 4:05 AM CDT) [facility] PH 7.40 7.35 - 7.45 [facility] PCO2 39 35 - 45 mmHg [facility] PO2 72 (L) 80 - 100 mmHg [facility] HCO3 24 22 - 26 mEq/L [facility] BE -1.0 -3.0 - 3.0 mEq/L [facility] THB 16.9 13.5 - 18.0 g/dL [facility] %O2HB 93.9 (L) 94.0 - 99.0 % [facility] %COHB ART 1.2 0.0 - 1.5 % [facility] %METHB ART 0.2 (L) 0.4 - 1.5 % [facility] VOL%O2 ART 22.3 15.0 - 23.0 % [facility] NA 141 135 - 145 mmol/L [facility] K+ 4.0 3.5 - 5.0 mmol/L [facility] AC CA IONZ 4.80 4.50 - 5.30 mg/dL [facility] GLUCOSE 172 (H) 70 - 110 mg/dL [facility] Specimen Blood - ARTERIAL Performing Organization Address City/State/Zipcode Phone Number [facility] CLIA: [id number], [address] [place] [address] [facility] [address] POCT GLUCOSE (AUTOMATED) (01/12/2020 2:05 AM CDT) POCT GLU 184 (H) 70 - 110 mg/dL [facility] Specimen Blood Performing Organization Address City/[facility] Phone Number [facility] CLIA: [id number], [address] [place] [address] [phone] CBC WITH DIFFERENTIAL (01/12/2020 12:14 AM CDT) WBC 10.94 (H) 4.20 - 10.70 [facility] 10*3/L [facility] RBC 3.26 (L) 4.26 - 5.52 [facility] 10*6/L [facility] HGB 10.2 (L) 12.2 - 16.4 [facility] g/dL [facility] HCT 29.6 (L) 38.4 - 49.3 % [facility] MCV 90.8 81.7 - 95.6 fL [facility] MCH 31.3 26.1 - 32.7 pg [facility] MCHC 34.5 31.2 - 35.0 [facility] g/dL [facility] RDW-SD 50.3 38.5 - 51.6 fL [facility] RDW-CV 15.3 12.1 - 15.4 % [facility] PLT 162 150 - 328 [facility] 10*3/L [facility] MPV 9.6 (L) 9.8 - 13.0 fL [facility] NRBC/100 WBC 0.0 0.0 - 10.0 /100 [facility] WBCs [facility] NRBC x10^3 <0.01 10*3/L [facility] GRAN MAT (NEUT) % 82.9 % [facility] IMM GRAN % 0.70 % [facility] LYMPH % 6.9 % [facility] MONO % 9.0 % [facility] EOS % 0.1 % [facility] BASO % 0.4 % [facility] GRAN MAT x10^3(ANC) 9.07 (H) 1.99 - 6.95 [facility] 10*3/uL [facility] IMM GRAN x10^3 0.08 (H) 0.00 - 0.06 [facility] 10*3/uL [facility] LYMPH x10^3 0.76 (L) 1.09 - 3.23 [facility] 10*3/uL [facility] MONO x10^3 0.98 0.36 - 1.02 [facility] EOS x10^3 <0.03 (L) 0.06 - 0.53 [facility] 10*3/uL [facility] BASO x10^3 0.04 0.01 - 0.09 [facility] 10*3/uL [facility] Specimen Blood - ARTERIAL Performing Organization Address City/State/Zipcode Phone Number [facility] CLIA: [id number], [address] [place], [place] [id number] [facility] [address] MAGNESIUM (01/12/2020 12:14 AM CDT) MAGNESIUM 1.9 1.7 - 2.4 mg/dL [facility] Specimen Blood - ARTERIAL Performing Organization Address City/[facility] Phone Number [facility] CLIA: [id number], [address] [place] [address] [facility] [address] BASIC METABOLIC PANEL (NA, K, CL, CO2, GLUCOSE, BUN, CREATININE, CA) (2019 12:14 AM CDT) NA 140 135 - 145 [facility] mmol/L [facility] K 4.0 3.5 - 5.0 [facility] mmol/L [facility] CL 107 98 - 108 mmol/L [facility] CO2 TOTAL 22 (L) 23 - 31 mmol/L [facility] AGAP 11 2 - 16 [facility] BUN 22 7 - 23 mg/dL [facility] GLUCOSE 185 (H) 70 - 110 mg/dL [facility] CREATININE 0.89 0.60 - 1.25 [facility] mg/dL [facility] CALCIUM 8.7 8.6 - 10.6 [facility] mg/dL [facility] eGFR Calculation 83.8 mL/min/1.73m2 [facility] ([facility] [place] eGFR Calculation 101.6 mL/min/1.73m2 [facility] () [facility] Specimen Blood - ARTERIAL Narrative Performed At Association of Glomerular Filtration Rate [facility] (GFR) and Staging of Kidney Disease* [...] tests). Performing Organization Address City/State/Zipcode Phone Number [facility] CLIA: [id number], [address] [place] [phone] [facility] AC PANEL 20 + LACTIC ACID (01/12/2020 12:13 AM CDT) PH 7.43 7.35 - 7.45 [facility] PCO2 30 (L) 35 - 45 mmHg [facility] PO2 74 (L) 80 - 100 mmHg [facility] HCO3 19 (L) 22 - 26 mEq/L [facility] BE -4.2 (L) -3.0 - 3.0 mEq/L [facility] THB 11.0 (L) 13.5 - 18.0 g/dL [facility] %O2HB 94.1 94.0 - 99.0 % [facility] %COHB ART 0.6 0.0 - 1.5 % [facility] %METHB ART 0.1 (L) 0.4 - 1.5 % [facility] VOL%O2 ART 14.6 (L) 15.0 - 23.0 % [facility] NA 138 135 - 145 mmol/L [facility] K+ 4.0 3.5 - 5.0 mmol/L [facility] AC CA IONZ 4.60 4.50 - 5.30 mg/dL [facility] GLUCOSE 182 (H) 70 - 110 mg/dL [facility] LACTIC ACID 2.44 0.50 - 2.20 mmol/L [facility] Specimen Blood - ARTERIAL Performing Organization Address City/State/Zipcode Phone Number [facility] CLIA: [id number], [address] [place] [address] [facility] POCT GLUCOSE (AUTOMATED) (01/11/2020 11:20 PM CDT) POCT GLU 219 (H) 70 - 110 mg/dL [facility] Specimen Blood Performing Organization Address City/[facility]/Zipcode Phone Number [facility] CLIA: [id number], [address] [place] [address] AC PANEL 20 + LACTIC ACID (01/11/2020 10:19 PM CDT) PH 7.40 7.35 - 7.45 [facility] PCO2 35 35 - 45 mmHg [facility] PO2 86 80 - 100 mmHg [facility] HCO3 21 (L) 22 - 26 mEq/L [facility] BE -2.8 -3.0 - 3.0 mEq/L [facility] THB 13.3 (L) 13.5 - 18.0 g/dL [facility] %O2HB 95.1 94.0 - 99.0 % [facility] %COHB ART 0.9 0.0 - 1.5 % [facility] %METHB ART 0.2 (L) 0.4 - 1.5 % [facility] VOL%O2 ART 17.8 15.0 - 23.0 % [facility] NA 138 135 - 145 mmol/L [facility] K+ 4.2 3.5 - 5.0 mmol/L [facility] AC CA IONZ 4.80 4.50 - 5.30 mg/dL [facility] GLUCOSE 216 (H) 70 - 110 mg/dL [facility] LACTIC ACID 1.98 0.50 - 2.20 mmol/L [facility] Specimen Blood - ARTERIAL Performing Organization Address City/State/Zipcode Phone Number [facility] CLIA: [id number], [address] [place] [address] [facility] POCT GLUCOSE (AUTOMATED) (01/11/2020 10:02 PM CDT) POCT GLU 227 (H) 70 - 110 mg/dL [facility] Specimen Blood Performing Organization Address City/[facility]/Zipcode Phone Number [facility] [facility] CLIA: [id number], [address] [place] [address] [phone] POCT GLUCOSE (AUTOMATED) (01/11/2020 9:10 PM CDT) POCT GLU 236 (H) 70 - 110 mg/dL [facility] Specimen Blood Performing Organization Address City/State/Zipcode Phone Number [facility] CLIA: [id number], [address] [place] [address] CBC WITH DIFFERENTIAL (01/11/2020 7:59 PM CDT) WBC 12.61 (H) 4.20 - 10.70 [facility] 10*3/L [facility] RBC 3.22 (L) 4.26 - 5.52 [facility] 10*6/L [facility] HGB 10.1 (L) 12.2 - 16.4 [facility] g/dL [facility] HCT 29.4 (L) 38.4 - 49.3 % [facility] MCV 91.3 81.7 - 95.6 fL [facility] MCH 31.4 26.1 - 32.7 pg [facility] MCHC 34.4 31.2 - 35.0 [facility] g/dL [facility] RDW-SD 49.5 38.5 - 51.6 fL [facility] RDW-CV 15.2 12.1 - 15.4 % [facility] PLT 158 150 - 328 [facility] 10*3/L [facility] MPV 9.5 (L) 9.8 - 13.0 fL [facility] NRBC/100 WBC 0.0 0.0 - 10.0 /100 [facility] WBCs [facility] NRBC x10^3 <0.01 10*3/L [facility] GRAN MAT (NEUT) % 87.4 % [facility] IMM GRAN % 0.70 % [facility] LYMPH % 4.0 % [facility] MONO % 7.7 % [facility] EOS % 0.0 % [facility] BASO % 0.2 % [facility] GRAN MAT x10^3(ANC) 11.02 (H) 1.99 - 6.95 [facility] 10*3/uL [facility] IMM GRAN x10^3 0.09 (H) 0.00 - 0.06 [facility] 10*3/uL [facility] LYMPH x10^3 0.50 (L) 1.09 - 3.23 [facility] 10*3/uL [facility] MONO x10^3 0.97 0.36 - 1.02 [facility] 10*3/uL [facility] EOS x10^3 <0.03 (L) 0.06 - 0.53 [facility] 10*3/uL [facility] BASO x10^3 0.03 0.01 - 0.09 [facility] 10*3/uL [facility] Specimen Blood - ARTERIAL Performing Organization Address City/State/Zipcode Phone Number [facility] CLIA: [id number], [address] [place], [place] [phone] [facility] MAGNESIUM (01/11/2020 7:59 PM CDT) MAGNESIUM 1.6 (L) 1.7 - 2.4 mg/dL [facility] Specimen Blood - ARTERIAL Performing Organization Address City/State/Zipcode Phone Number [facility] CLIA: [id number], [address] [place], [place] [phone] [facility] [address] BASIC METABOLIC PANEL (NA, K, CL, CO2, GLUCOSE, BUN, CREATININE, CA) (2019 7:59 PM CDT) NA 139 135 - 145 [facility] mmol/L [facility] K 4.5 3.5 - 5.0 [facility] mmol/L [facility] CL 107 98 - 108 mmol/L [facility] CO2 TOTAL 23 23 - 31 mmol/L [facility] AGAP 9 2 - 16 [facility] BUN 22 7 - 23 mg/dL [facility] GLUCOSE 201 (H) 70 - 110 mg/dL [facility] CREATININE 0.83 0.60 - 1.25 [facility] mg/dL [facility] CALCIUM 8.8 8.6 - 10.6 [facility] mg/dL [facility] eGFR Calculation 90.8 mL/min/1.73m2 [facility] ([facility]) [place] eGFR Calculation 110.1 mL/min/1.73m2 [facility] () [facility] Specimen Blood - ARTERIAL Narrative Performed At Association of Glomerular Filtration Rate [facility] (GFR) and Staging of Kidney Disease* [...] tests). Performing Organization Address City/State/Zipcode Phone Number [facility] CLIA: [id number], [address] [place] [address] [facility] [address] AC PANEL 20 + LACTIC ACID (01/11/2020 7:59 PM CDT) [facility] Signature PH 7.38 7.35 - 7.45 [facility] PCO2 40 35 - 45 mmHg [facility] PO2 90 80 - 100 mmHg [facility] HCO3 23 22 - 26 mEq/L [facility] BE -1.8 -3.0 - 3.0 mEq/L [facility] THB 10.5 (L) 13.5 - 18.0 g/dL [facility] %O2HB 95.7 94.0 - 99.0 % [facility] %COHB ART 0.7 0.0 - 1.5 % [facility] %METHB ART 0.2 (L) 0.4 - 1.5 % [facility] VOL%O2 ART 14.2 (L) 15.0 - 23.0 % [facility] NA 139 135 - 145 mmol/L [facility] K+ 4.5 3.5 - 5.0 mmol/L [facility] AC CA IONZ 4.80 4.50 - 5.30 mg/dL [facility] GLUCOSE 215 (H) 70 - 110 mg/dL [facility] LACTIC ACID 1.45 0.50 - 2.20 mmol/L [facility] Specimen Blood - ARTERIAL Performing Organization Address City/[facility] Phone Number [facility] CLIA: [id number], [address] [place] [address] [facility] [place] POCT GLUCOSE (AUTOMATED) (01/11/2020 7:07 PM CDT) POCT GLU 211 (H) 70 - 110 mg/dL [facility] Specimen Blood Performing Organization Address [facility] Hospitalcoms Phone Number [facility] CLIA: [id number], [address] [place], [place] [address] [phone] St POCT GLUCOSE (AUTOMATED) (01/11/2020 6:25 PM CDT) POCT GLU 195 (H) 70 - 110 mg/dL [facility] Specimen Blood Performing Organization Address [facility] Hospitalcoms Phone Number [facility] CLIA: [id number], [address] [place], [place] [address] [phone] St ABG+COOX+NA+K+GLU+CA2+ (01/11/2020 6:06 PM CDT) PH 7.36 7.35 - 7.45 [facility] PCO2 45 35 - 45 mmHg [facility] PO2 83 80 - 100 mmHg [facility] HCO3 25 22 - 26 mEq/L [facility] BE -1.1 -3.0 - 3.0 mEq/L [facility] THB 11.1 (L) 13.5 - 18.0 g/dL [facility] %O2HB 94.8 94.0 - 99.0 % [facility] %COHB ART 0.8 0.0 - 1.5 % [facility] %METHB ART 0.2 (L) 0.4 - 1.5 % [facility] VOL%O2 ART 14.9 (L) 15.0 - 23.0 % [facility] NA 139 135 - 145 mmol/L [facility] K+ 4.3 3.5 - 5.0 mmol/L [facility] AC CA IONZ 5.00 4.50 - 5.30 mg/dL [facility] GLUCOSE 186 (H) 70 - 110 mg/dL [facility] Specimen Blood Performing Organization Address City/[facility] Hospitalcode Phone Number [facility] CLIA: [id number], [address] [place] [address] [facility] [address] POCT GLUCOSE (AUTOMATED) (01/11/2020 5:43 PM CDT) POCT GLU 179 (H) 70 - 110 mg/dL [facility] Specimen Blood Performing Organization Address City/[facility]/Zipcode Phone Number [facility] CLIA: [id number], [address] [place] [address] [phone] St POCT GLUCOSE (AUTOMATED) (01/11/2020 4:31 PM CDT) POCT GLU 159 (H) 70 - 110 mg/dL [facility] Specimen Blood Performing Organization Address City/[facility] Hospitalcode Phone Number [facility] CLIA: [id number], [address] [place] [address] St ABG+COOX+NA+K+GLU+CA2+ (01/11/2020 4:24 PM CDT) PH 7.33 (L) 7.35 - 7.45 [facility] PCO2 50 (H) 35 - 45 mmHg [facility] PO2 85 80 - 100 mmHg [facility] HCO3 26 22 - 26 mEq/L [facility] BE -0.4 -3.0 - 3.0 mEq/L [facility] THB 11.1 (L) 13.5 - 18.0 g/dL [facility] %O2HB 94.9 94.0 - 99.0 % [facility] %COHB ART 1.0 0.0 - 1.5 % [facility] %METHB ART 0.3 (L) 0.4 - 1.5 % [facility] VOL%O2 ART 14.9 (L) 15.0 - 23.0 % [facility] NA 139 135 - 145 mmol/L [facility] K+ 4.3 3.5 - 5.0 mmol/L [facility] AC CA IONZ 5.30 4.50 - 5.30 mg/dL [facility] GLUCOSE 157 (H) 70 - 110 mg/dL [facility] Specimen Blood Performing Organization Address City/State/Zipcode Phone Number [facility] CLIA: [id number], [address] [place] [address] [facility] [address] MRSA / MSSA Screen by PCR, Nares (01/11/2020 4:16 PM CDT) MRSA Screen by PCR, Positive (A) Negative [facility] Nares SERVICES MRSA/MSSA Positive? Yes (A) No [facility] SERVICES Specimen Swab - NARES, BOTH SIDES Narrative Performed At A positive test result does not necessarily indicate the [facility] presence of viable organism. Performing Organization Address City/[facility] Hospitalcoms Phone Number [facility] CLIA: [id number], [address] [place] [address] [facility] XR CHEST 1 VW (01/11/2020 4:00 PM CDT) Specimen Impressions Performed At PACS/VR/DOSE Lines and tubes, as above.. Cardiomegaly with mild edema. Small left effusion. Patchy right basilar atelectasis versus infiltrate. Right upper lobe nodule measuring 9 mm, recommend comparison to prior exams. RL: [id number] Narrative Performed At Patient name: JUAN DIEGO DAMON PACS/VR/DOSE : 1945 74 years EXAMINATION: XR CHEST 1 VW Ordering Physician: SYEDA MORSE CLINICAL HISTORY: intubated post op with PAC COMPARISON: None TECHNIQUE: Single frontal view of the chest was performed. FINDINGS: Sternotomy wires are intact. Right-sided Corder-Baltazar catheter with the tip in the main pulmonary artery. Endotracheal tube 18 mm above the taz. Chest drains are in place. No pneumothorax. Small left effusion. Pulmonary edema present. Right upper lobe pulmonary nodule measures 9 mm. Patchy infiltrate right lung base. No acute osseous normality. Procedure Note [facility], Radiant Results Inft User - 01/11/2020 4:14 PM CDT Patient name: JUAN DIEGO DAMON : 1945 74 years EXAMINATION: XR CHEST 1 VW Ordering Physician: SYEDA MORSE CLINICAL HISTORY: intubated post op with PAC COMPARISON: None TECHNIQUE: Single frontal view of the chest was performed. FINDINGS: Sternotomy wires are intact. Right-sided Corder-Baltazar catheter with the tip in the main pulmonary artery. Endotracheal tube 18 mm above the taz. Chest drains are in place. No pneumothorax. Small left effusion. Pulmonary edema present. Right upper lobe pulmonary nodule measures 9 mm. Patchy infiltrate right lung base. No acute osseous normality. IMPRESSION Lines and tubes, as above.. Cardiomegaly with mild edema. Small left effusion. Patchy right basilar atelectasis versus infiltrate. Right upper lobe nodule measuring 9 mm, recommend comparison to prior exams. RL: 6200 Performing Organization Address City/State/Zipcode Phone Number PACS/VR/DOSE aPTT (01/11/2020 3:24 PM CDT) APTT Patient 38 (H) 26 - 36 Seconds [facility] Specimen Blood - ARTERIAL Performing Organization Address City/State/Zipcode Phone Number [facility] CLIA: [id number], [address] [place], [place] [address] [facility] PROTHROMBIN TIME / INR (01/11/2020 3:24 PM CDT) PROTIME PATIENT 14.7 (H) 10.1 - 12.6 [facility] Seconds [facility] INR 1.3Comment: Normal [facility] INR <1.1; Warfarin [facility] Therapeutic range [facility] 2.0 to 3.0 or 2.5 to 3.5, depending upon the indications. Specimen Blood - ARTERIAL Performing Organization Address City/[facility]code Phone Number [facility] CLIA: [id number], [address] [place] [address] [facility] PHOSPHORUS (01/11/2020 3:24 PM CDT) PHOSPHORUS 2.8 2.5 - 5.0 mg/dL [facility] Specimen Blood - ARTERIAL Performing Organization Address City/[facility]code Phone Number [facility] CLIA: [id number], [address] [place] [address] [facility] MAGNESIUM (01/11/2020 3:24 PM CDT) MAGNESIUM 1.5 (L) 1.7 - 2.4 mg/dL [facility] Specimen Blood - ARTERIAL Performing Organization Address City/State/Zipcode Phone Number [facility] CLIA: [id number], [address] [place] [address] [facility] Basic Metabolic Panel (NA, K, CL, CO2, GLUCOSE, BUN, CREATININE, CA) (2019 3:24 PM CDT) NA 139 135 - 145 [facility] mmol/L [facility] K 4.8Comment: 3.5 - 5.0 [facility] Slight hemolysis mmol/L [facility] CL 109 (H) 98 - 108 [facility] mmol/L [facility] CO2 TOTAL 23 23 - 31 [facility] mmol/L [facility] AGAP 7 2 - 16 [facility] BUN 24 (H)Comment: 7 - 23 mg/dL [facility] Slight hemolysis [facility] GLUCOSE 128 (H) 70 - 110 [facility] mg/dL [facility] CREATININE 0.79 0.60 - 1.25 [facility] mg/dL [facility] CALCIUM 6.8 (L) 8.6 - 10.6 [facility] mg/dL [facility] eGFR Calculation 96.1 mL/min/1.73m2 [facility] (Non- [facility] eGFR Calculation 116.5 mL/min/1.73m2 [facility] () [facility] Specimen Blood - ARTERIAL Narrative Performed At Association of Glomerular Filtration Rate [facility] (GFR) and Staging of Kidney Disease* CAMPUS [...] tests). Performing Organization Address City/State/Zipcode Phone Number [facility] CLIA: [id number], [address] [place] [address] SERVICES-[facility] WITH DIFFERENTIAL (01/11/2020 3:23 PM CDT) WBC 14.96 (H) 4.20 - 10.70 [facility] 10*3/L [facility] RBC 3.42 (L) 4.26 - 5.52 [facility] 10*6/L [facility] HGB 10.3 (L) 12.2 - 16.4 [facility] g/dL [facility] HCT 31.0 (L) 38.4 - 49.3 % [facility] MCV 90.6 81.7 - 95.6 fL [facility] MCH 30.1 26.1 - 32.7 pg [facility] MCHC 33.2 31.2 - 35.0 [facility] g/dL [facility] RDW-SD 49.0 38.5 - 51.6 fL [facility] RDW-CV 14.9 12.1 - 15.4 % [facility] PLT 164 150 - 328 [facility] 10*3/L [facility] MPV 9.5 (L) 9.8 - 13.0 fL [facility] NRBC/100 WBC 0.0 0.0 - 10.0 [facility] /100 WBCs [facility] NRBC x10^3 <0.01 10*3/L [facility] GRAN MAT (NEUT) % 76.3 % [facility] IMM GRAN % 1.80 % [facility] LYMPH % 8.0 % [facility] MONO % 13.5 % [facility] EOS % 0.2 % [facility] BASO % 0.2 % [facility] GRAN MAT 11.42 (H) 1.99 - 6.95 [facility] x10^3(ANC) 10*3/uL [facility] IMM GRAN x10^3 0.27 (H) 0.00 - 0.06 [facility] 10*3/uL [facility] LYMPH x10^3 1.19 1.09 - 3.23 [facility] 10*3/uL [facility] MONO x10^3 2.02 (H) 0.36 - 1.02 [facility] 10*3/uL [facility] EOS x10^3 0.03 (L) 0.06 - 0.53 [facility] 10*3/uL [facility] BASO x10^3 0.03 0.01 - 0.09 [facility] 10*3/uL [facility] BASO STIPPLING Present (A) [facility] BANDS Increased (A) [facility] TOXIC CHANGES Present (A) [facility] Specimen Blood - ARTERIAL Performing Organization Address City/State/Zipcode Phone Number [facility] CLIA: [id number], [address] [place] [address] [facility] [address] ABG+COOX+NA+K+GLU+CA2+ (01/11/2020 3:22 PM CDT) PH 7.23 (L) 7.35 - 7.45 [facility] PCO2 43 35 - 45 mmHg [facility] PO2 94 80 - 100 mmHg [facility] HCO3 18 (L) 22 - 26 mEq/L [facility] BE -9.4 (L) -3.0 - 3.0 mEq/L [facility] THB 10.7 (L) 13.5 - 18.0 g/dL [facility] %O2HB 94.8 94.0 - 99.0 % [facility] %COHB ART 0.7 0.0 - 1.5 % [facility] %METHB ART 0.1 (L) 0.4 - 1.5 % [facility] VOL%O2 ART 14.4 (L) 15.0 - 23.0 % [facility] NA 139 135 - 145 mmol/L [facility] K+ 4.8 3.5 - 5.0 mmol/L [facility] AC CA IONZ 4.40 (L) 4.50 - 5.30 mg/dL [facility] SERVICES-[facility] GLUCOSE 114 (H) 70 - 110 mg/dL [facility] SERVICES-[facility] Specimen Blood Performing Organization Address City/State/Zipcode Phone Number [facility] CLIA: [id number], [address] [place] [address] SERVICES-[facility] ACUTE CARE ARTERIAL (01/11/2020 2:43 PM CDT) PH 7.31 (L) 7.35 - 7.45 [facility] PCO2 50 (H) 35 - 45 mmHg [facility] PO2 174 (H) 80 - 100 mmHg [facility] BE -2.0 -3.0 - 3.0 mEq/L [facility] HCO3 25 22 - 26 mEq/L [facility] %O2HB 99.0 (H) 95.0 - 98.0 % [facility] NA 142 135 - 145 mmol/L [facility] K+ 4.1 3.5 - 5.0 mmol/L [facility] AC CA IONZ 4.60 4.50 - 5.30 mg/dL [facility] GLUCOSE 124 (H) 70 - 110 mg/dL [facility] AC Hematocrit 18 (LL) 40 - 54 VOL % [facility] THB 6.1 (LL) 13.5 - 18.0 g/dL [facility] AC TC02 26 23-27 mmol/L [facility] mmol/L SERVICES Specimen Blood Performing Organization Address City/State/Zipcode Phone Number [facility] CLIA: [id number], [address] [place] [address] [phone] [facility] ACUTE CARE ARTERIAL (01/11/2020 2:07 PM CDT) PH 7.30 (L) 7.35 - 7.45 [facility] PCO2 51 (H) 35 - 45 mmHg [facility] PO2 243 (H) 80 - 100 mmHg [facility] BE -2.0 -3.0 - 3.0 mEq/L [facility] HCO3 25 22 - 26 mEq/L [facility] %O2HB 100.0 (H) 95.0 - 98.0 % [facility] NA 143 135 - 145 mmol/L [facility] K+ 4.3 3.5 - 5.0 mmol/L [facility] AC CA IONZ 4.00 (L) 4.50 - 5.30 mg/dL [facility] GLUCOSE 142 (H) 70 - 110 mg/dL [facility] AC Hematocrit 21 (LL) 40 - 54 VOL % [facility] THB 7.1 (LL) 13.5 - 18.0 g/dL [facility] AC TC02 26 23-27 mmol/L [facility] mmol/L SERVICES Specimen Blood Performing Organization Address City/State/Zipcode Phone Number [facility] CLIA: [id number], [address] [place] [phone] [facility] POCT ACT HIGH RANGE (01/11/2020 1:14 PM CDT) ACTHR 106 96 - 152 Seconds [facility] Specimen Blood Performing Organization Address City/[facility]/Zipcode Phone Number [facility] CLIA: [id number], [address] [place] [address] [facility] ISTAT ACUTE CARE ARTERIAL (01/11/2020 1:13 PM CDT) PH 7.20 (L) 7.35 - 7.45 [facility] PCO2 7 (L) 35 - 45 mmHg [facility] PO2 205 (H) 80 - 100 mmHg [facility] BE -25.0 (L) -3.0 - 3.0 mEq/L [facility] HCO3 3 (L) 22 - 26 mEq/L [facility] %O2HB 100.0 (H) 95.0 - 98.0 % [facility] NA 160 (H) 135 - 145 mmol/L [facility] K+ <2.0 (LL) 3.5 - 5.0 mmol/L [facility] AC CA IONZ <1.00 (LL) 4.50 - 5.30 mg/dL [facility] GLUCOSE 24 (LL) 70 - 110 mg/dL [facility] AC Hematocrit 55 (H) 40 - 54 VOL % [facility] THB 18.7 (H) 13.5 - 18.0 g/dL [facility] AC TC02 <5 (L) 23-27 mmol/L [facility] mmol/L SERVICES Specimen Blood Performing Organization Address City/State/Zipcode Phone Number [facility] CLIA: [id number], [address] [place] [address] [facility] PLATELET COUNT (01/11/2020 1:12 PM CDT) PLT 161 150 - 328 10*3/L [facility] Specimen Blood Performing Organization Address City/[facility] Phone Number [facility] CLIA: [id number], [address] [place] [address] [facility] HEMOGLOBIN (01/11/2020 1:12 PM CDT) HGB 8.1 (L) 12.2 - 16.4 g/dL [facility] Specimen Blood Performing Organization Address City/[facility] Phone Number [facility] CLIA: [id number], [address] [place] [address] [facility] [address] HEMATOCRIT (01/11/2020 1:12 PM CDT) HCT 24.1 (L) 38.4 - 49.3 % [facility] Specimen Blood Performing Organization Address City/[facility] Phone Number [facility] CLIA: [id number], [address] [place] [address] [facility] [address] PROTHROMBIN TIME / INR (01/11/2020 1:00 PM CDT) PROTIME PATIENT 15.1 (H) 10.1 - 12.6 [facility] Seconds [facility] INR 1.4Comment: Normal [facility] INR <1.1; Warfarin [facility] Therapeutic range [facility] 2.0 to 3.0 or 2.5 to 3.5, depending upon the indications. Specimen Blood Performing Organization Address City/[facility]/Zipcode Phone Number [facility] CLIA: [id number], [address] [place] [address] [facility] [address] FIBRINOGEN (01/11/2020 1:00 PM CDT) Fibrinogen 224 167 - 453 mg/dL [facility] Specimen Blood Performing Organization Address City/State/Zipcode Phone Number [facility] CLIA: [id number], [address] [place] [address] SERVICES-[facility] aPTT (01/11/2020 1:00 PM CDT) APTT Patient 34 26 - 36 Seconds [facility] SERVICES-[facility] Specimen Blood Performing Organization Address City/State/Zipcode Phone Number [facility] CLIA: [id number], [address] [place] [address] SERVICES-[facility] ISTAT ACUTE CARE ARTERIAL (01/11/2020 12:17 PM CDT) PH 7.40 7.35 - 7.45 [facility] SERVICES PCO2 42 35 - 45 mmHg [facility] PO2 383 (H) 80 - 100 mmHg [facility] BE 1.0 -3.0 - 3.0 mEq/L [facility] SERVICES HCO3 26 22 - 26 mEq/L [facility] SERVICES %O2HB 100.0 (H) 95.0 - 98.0 % [facility] SERVICES NA 142 135 - 145 mmol/L [facility] K+ 5.4 (H) 3.5 - 5.0 mmol/L [facility] SERVICES AC CA IONZ 3.70 (L) 4.50 - 5.30 mg/dL [facility] SERVICES GLUCOSE 173 (H) 70 - 110 mg/dL [facility] SERVICES AC Hematocrit 23 (LL) 40 - 54 VOL % [facility] SERVICES THB 7.8 (LL) 13.5 - 18.0 g/dL [facility] SERVICES AC TC02 27 23-27 mmol/L [facility] mmol/L SERVICES Specimen Blood Performing Organization Address City/State/Zipcode Phone Number [facility] CLIA: [id number], [address] [place] [address] [facility] POCT ACT HIGH RANGE (01/11/2020 12:13 PM CDT) ACTHR 433 (H) 96 - 152 Seconds [facility] SERVICES Specimen Blood Performing Organization Address City/State/Zipcode Phone Number [facility] CLIA: [id number], [address] [place] [address] [facility] ACUTE CARE ARTERIAL (01/11/2020 11:45 AM CDT) PH 7.45 7.35 - 7.45 [facility] SERVICES PCO2 40 35 - 45 mmHg [facility] PO2 388 (H) 80 - 100 mmHg [facility] SERVICES BE 4.0 (H) -3.0 - 3.0 mEq/L [facility] SERVICES HCO3 28 (H) 22 - 26 mEq/L [facility] SERVICES %O2HB 100.0 (H) 95.0 - 98.0 % [facility] SERVICES NA 141 135 - 145 mmol/L [facility] SERVICES K+ 5.4 (H) 3.5 - 5.0 mmol/L [facility] SERVICES AC CA IONZ 3.80 (L) 4.50 - 5.30 mg/dL [facility] SERVICES GLUCOSE 175 (H) 70 - 110 mg/dL [facility] SERVICES AC Hematocrit 25 (LL) 40 - 54 VOL % [facility] SERVICES THB 8.5 (L) 13.5 - 18.0 g/dL [facility] SERVICES AC TC02 29 (H) 23-27 mmol/L [facility] mmol/L SERVICES Specimen Blood Performing Organization Address City/[facility]/Zipcode Phone Number [facility] SERVICES CLIA: [id number], [address] [place] [address] [facility] POCT ACT HIGH RANGE (01/11/2020 11:42 AM CDT) ACTHR 436 (H) 96 - 152 Seconds [facility] SERVICES Specimen Blood Performing Organization Address City/State/Zipcode Phone Number [facility] SERVICES CLIA: [id number], [address] [place] [phone] [facility] ACUTE CARE ARTERIAL (01/11/2020 11:16 AM CDT) PH 7.44 7.35 - 7.45 [facility] SERVICES PCO2 41 35 - 45 mmHg [facility] SERVICES PO2 398 (H) 80 - 100 mmHg [facility] SERVICES BE 4.0 (H) -3.0 - 3.0 mEq/L [facility] SERVICES HCO3 28 (H) 22 - 26 mEq/L [facility] SERVICES %O2HB 100.0 (H) 95.0 - 98.0 % [facility] SERVICES NA 141 135 - 145 mmol/L [facility] SERVICES K+ 5.3 (H) 3.5 - 5.0 mmol/L [facility] SERVICES AC CA IONZ 3.80 (L) 4.50 - 5.30 mg/dL [facility] SERVICES GLUCOSE 192 (H) 70 - 110 mg/dL [facility] SERVICES AC Hematocrit 25 (LL) 40 - 54 VOL % [facility] SERVICES THB 8.5 (L) 13.5 - 18.0 g/dL [facility] SERVICES AC TC02 29 (H) 23-27 mmol/L [facility] mmol/L SERVICES Specimen Blood Performing Organization Address City/[facility]/Zipcode Phone Number [facility] SERVICES CLIA: [id number], [address] [place] [address] [phone] [facility] POCT ACT HIGH RANGE (01/11/2020 11:13 AM CDT) ACTHR 541 (H) 96 - 152 Seconds [facility] SERVICES Specimen Blood Performing Organization Address City/[facility]/Zipcode Phone Number [facility] SERVICES CLIA: [id number], [address] [place] [address] [facility] ISTAT ACUTE CARE ARTERIAL (01/11/2020 10:46 AM CDT) PH 7.42 7.35 - 7.45 [facility] SERVICES PCO2 43 35 - 45 mmHg [facility] SERVICES PO2 344 (H) 80 - 100 mmHg [facility] SERVICES BE 4.0 (H) -3.0 - 3.0 mEq/L [facility] SERVICES HCO3 28 (H) 22 - 26 mEq/L [facility] SERVICES %O2HB 100.0 (H) 95.0 - 98.0 % [facility] SERVICES NA 138 135 - 145 mmol/L [facility] SERVICES K+ 6.0 (H) 3.5 - 5.0 mmol/L [facility] SERVICES AC CA IONZ 3.80 (L) 4.50 - 5.30 mg/dL [facility] SERVICES GLUCOSE 225 (H) 70 - 110 mg/dL [facility] SERVICES AC Hematocrit 25 (LL) 40 - 54 VOL % [facility] SERVICES THB 8.5 (L) 13.5 - 18.0 g/dL [facility] SERVICES AC TC02 30 (H) 23-27 mmol/L [facility] mmol/L SERVICES Specimen Blood Performing Organization Address City/[facility]/Zipcode Phone Number [facility] SERVICES CLIA: [id number], [address] [place] [address] [phone] [facility] POCT ACT HIGH RANGE (01/11/2020 10:43 AM CDT) ACTHR 549 (H) 96 - 152 Seconds [facility] SERVICES Specimen Blood Performing Organization Address [facility] Phone Number [facility] SERVICES CLIA: [id number], [address] [place] [address] [phone] [facility] ISTAT ACUTE CARE ARTERIAL (01/11/2020 10:22 AM CDT) PH 7.39 7.35 - 7.45 [facility] SERVICES PCO2 46 (H) 35 - 45 mmHg [facility] SERVICES PO2 326 (H) 80 - 100 mmHg [facility] SERVICES BE 3.0 -3.0 - 3.0 mEq/L [facility] SERVICES HCO3 28 (H) 22 - 26 mEq/L [facility] SERVICES %O2HB 100.0 (H) 95.0 - 98.0 % [facility] SERVICES NA 139 135 - 145 mmol/L [facility] SERVICES K+ 5.6 (H) 3.5 - 5.0 mmol/L [facility] SERVICES AC CA IONZ 3.80 (L) 4.50 - 5.30 mg/dL [facility] SERVICES GLUCOSE 216 (H) 70 - 110 mg/dL [facility] SERVICES AC Hematocrit 24 (LL) 40 - 54 VOL % [facility] SERVICES THB 8.2 (LL) 13.5 - 18.0 g/dL [facility] SERVICES AC TC02 29 (H) 23-27 mmol/L [facility] mmol/L SERVICES Specimen Blood Performing Organization Address City/[facility] Phone Number [facility] SERVICES CLIA: [id number], [address] [place] [address] [phone] [facility] POCT ACT HIGH RANGE (01/11/2020 10:19 AM CDT) ACTHR 651 (H) 96 - 152 Seconds [facility] SERVICES Specimen Blood Performing Organization Address City/[facility]/Zipcode Phone Number [facility] CLIA: [id number], [address] [place] [address] [facility] ISTA ACUTE CARE ARTERIAL (01/11/2020 9:52 AM CDT) PH 7.32 (L) 7.35 - 7.45 [facility] SERVICES PCO2 50 (H) 35 - 45 mmHg [facility] PO2 350 (H) 80 - 100 mmHg [facility] SERVICES BE -1.0 -3.0 - 3.0 mEq/L [facility] SERVICES HCO3 26 22 - 26 mEq/L [facility] SERVICES %O2HB 100.0 (H) 95.0 - 98.0 % [facility] SERVICES NA 138 135 - 145 mmol/L [facility] K+ 4.8 3.5 - 5.0 mmol/L [facility] SERVICES AC CA IONZ 4.00 (L) 4.50 - 5.30 mg/dL [facility] SERVICES GLUCOSE 201 (H) 70 - 110 mg/dL [facility] SERVICES AC Hematocrit 26 (L) 40 - 54 VOL % [facility] SERVICES THB 8.8 (L) 13.5 - 18.0 g/dL [facility] SERVICES AC TC02 27 23-27 mmol/L [facility] mmol/L SERVICES Specimen Blood Performing Organization Address City/State/Zipcode Phone Number [facility] SERVICES CLIA: [id number], [address] [place] [address] [facility] POCT ACT HIGH RANGE (01/11/2020 9:49 AM CDT) ACTHR 718 (H) 96 - 152 Seconds [facility] SERVICES Specimen Blood Performing Organization Address City/State/Zipcode Phone Number [facility] SERVICES CLIA: [id number], [address] [place] [address] [phone] [facility] ISTA ACUTE CARE ARTERIAL (01/11/2020 9:30 AM CDT) PH 7.22 (L) 7.35 - 7.45 [facility] SERVICES PCO2 63 (H) 35 - 45 mmHg [facility] SERVICES PO2 483 (H) 80 - 100 mmHg [facility] SERVICES BE -2.0 -3.0 - 3.0 mEq/L [facility] SERVICES HCO3 26 22 - 26 mEq/L [facility] SERVICES %O2HB 100.0 (H) 95.0 - 98.0 % [facility] SERVICES NA 138 135 - 145 mmol/L [facility] SERVICES K+ 4.4 3.5 - 5.0 mmol/L [facility] SERVICES AC CA IONZ 3.80 (L) 4.50 - 5.30 mg/dL [facility] SERVICES GLUCOSE 192 (H) 70 - 110 mg/dL [facility] SERVICES AC Hematocrit 26 (L) 40 - 54 VOL % [facility] SERVICES THB 8.8 (L) 13.5 - 18.0 g/dL [facility] SERVICES AC TC02 28 (H) 23-27 mmol/L [facility] mmol/L SERVICES Specimen Blood Performing Organization Address City/[facility]/Zipcode Phone Number [facility] SERVICES CLIA: [id number], [address] [place] [address] [phone] [facility] POCT ACT HIGH RANGE (01/11/2020 9:27 AM CDT) ACTHR 751 (H) 96 - 152 Seconds [facility] SERVICES Specimen Blood Performing Organization Address City/[facility]/Zipcode Phone Number [facility] SERVICES CLIA: [id number], [address] [place], [place] [address] [facility] POCT ACT HIGH RANGE (01/11/2020 9:07 AM CDT) ACTHR 660 (H) 96 - 152 Seconds [facility] SERVICES Specimen Blood Performing Organization Address City/[facility]/Zipcode Phone Number [facility] SERVICES CLIA: [id number], [address] [place] [address] [phone] [facility] ISTAT ACUTE CARE ARTERIAL (01/11/2020 8:47 AM CDT) PH 7.17 (LL) 7.35 - 7.45 [facility] SERVICES PCO2 70 (H) 35 - 45 mmHg [facility] SERVICES PO2 421 (H) 80 - 100 mmHg [facility] SERVICES BE -3.0 -3.0 - 3.0 mEq/L [facility] SERVICES HCO3 26 22 - 26 mEq/L [facility] SERVICES %O2HB 100.0 (H) 95.0 - 98.0 % [facility] SERVICES NA 141 135 - 145 mmol/L [facility] K+ 3.8 3.5 - 5.0 mmol/L [facility] SERVICES AC CA IONZ 4.80 4.50 - 5.30 mg/dL [facility] SERVICES GLUCOSE 162 (H) 70 - 110 mg/dL [facility] SERVICES AC Hematocrit 32 (L) 40 - 54 VOL % [facility] SERVICES THB 10.9 (L) 13.5 - 18.0 g/dL [facility] SERVICES AC TC02 28 (H) 23-27 mmol/L [facility] mmol/L SERVICES Specimen Blood Performing Organization Address City/State/Zipcoms Phone Number [facility] SERVICES CLIA: [id number], [address] [place] [address] [facility] ISTA ACUTE CARE ARTERIAL (01/11/2020 8:17 AM CDT) PH 7.27 (L) 7.35 - 7.45 [facility] SERVICES PCO2 56 (H) 35 - 45 mmHg [facility] SERVICES PO2 390 (H) 80 - 100 mmHg [facility] SERVICES BE -1.0 -3.0 - 3.0 mEq/L [facility] SERVICES HCO3 26 22 - 26 mEq/L [facility] SERVICES %O2HB 100.0 (H) 95.0 - 98.0 % [facility] SERVICES NA 140 135 - 145 mmol/L [facility] SERVICES K+ 4.2 3.5 - 5.0 mmol/L [facility] SERVICES AC CA IONZ 4.80 4.50 - 5.30 mg/dL [facility] SERVICES GLUCOSE 172 (H) 70 - 110 mg/dL [facility] SERVICES AC Hematocrit 33 (L) 40 - 54 VOL % [facility] SERVICES THB 11.2 (L) 13.5 - 18.0 g/dL [facility] SERVICES AC TC02 27 23-27 mmol/L [facility] mmol/L SERVICES Specimen Blood Performing Organization Address City/[facility]/Zipcode Phone Number [facility] SERVICES CLIA: [id number], [address] [place] [address] [phone] [facility] POCT ACT HIGH RANGE (01/11/2020 8:14 AM CDT) ACTHR 92 (L) 96 - 152 Seconds [facility] SERVICES Specimen Blood Performing Organization Address City/[facility]/Zipcode Phone Number [facility] SERVICES CLIA: [id number], [address] [place] [address] [phone] [facility] SURGICAL PATHOLOGY EXAM (01/11/2020 6:33 AM CDT) Case Report Surgical Pathology Case: [id number] [facility] Authorizing Provider: Isidro Pulido MD Collected: 01/11/2020 0633 SERVICES Ordering Location: [facility] Surgical Received: 01/11/20202050 Center [facility] Pathologist: Andres Hernandez MD PHD Specimen: AORTIC VALVE Final Diagnosis [facility] Electronically A. HEART, AORTIC JIM, VALVE REPLACEMENT: SERVICES signed by David, - CALCIFIED AORTIC STENOSIS MD Andres PHD on 01/13/2020 at 4:02 PM I have personally reviewed all specimens/slides and agree with all statements made by residents, fellows or pathologist assistants whose name(s) may appear on this report. Clinical CAD [facility] Information SERVICES Gross Description Specimen A is received in formalin labelled with the patient s name, [facility] number aortic valve and consists of 3 portions of lala-yellow, rubbery, nodular to calcified regions of soft tissue, with a [facility] ortic leaflets (2.5 x 1.7 x 0.2 cm, 2.8 x 1.7 x 0.3 cm and 3 x 1.2 x 0.3 cm) . The specimen is serially sectioned and representatively submitted in A1, following decalcification. SERVICES DEO Sethi (ASCP)cm Embedded Images [facility] SERVICES Specimen Tissue - AORTIC VALVE Performing Organization Address City/[facility]/Zipcode Phone Number [facility] SERVICES CLIA: [id number], [address] [place] [address] [facility] Prepare Packed RBC (in units), 2 Units (01/11/2020 6:23 AM CDT) Cross Match Result Compatible LAB ISBT Blood Type Code 5100 LAB Unit Blood Type O Pos LAB Unit Number [id number] LAB Blood Expiration Date & LAB Time Status Information Issued LAB Product Identification Red Blood Cells LAB Product Code [id number] LAB Comment: Performed at [facility] Services - [facility] [address] [place], [place] [address] Toll Free: [phone] CLIA No. [id number] Cross Match Result Compatible LAB ISBT Blood Type Code 5100 LAB Unit Blood Type O Pos LAB Unit Number [id number] LAB Blood Expiration Date & LAB Time Status Information Issued LAB Product Identification Red Blood Cells LAB Product Code [id number] LAB Comment: Performed at [facility] Services - [facility] [address] [place], [place] [address] Toll Free: [phone] CLIA No. [id number] Specimen Performing Organization Address [facility] Phone Number BLD LAB POCT GLUCOSE (AUTOMATED) (01/11/2020 5:31 AM CDT) POCT GLU 128 (H) 70 - 110 mg/dL [facility] Specimen Blood Performing Organization Address [facility] Phone Number [facility] CLIA: [id number], [address] [place], [place] [address] St POCT GLUCOSE (AUTOMATED) (01/10/2020 8:37 PM CDT) POCT GLU 196 (H) 70 - 110 mg/dL [facility] Specimen Blood Performing Organization Address [facility] Phone Number [facility] CLIA: [id number], [address] [place], [place] [id number] St POCT GLUCOSE (AUTOMATED) (01/10/2020 5:08 PM CDT) POCT GLU 101 70 - 110 mg/dL [facility] Specimen Blood Performing Organization Address [facility] Phone Number [facility] CLIA: [id number], [address] [place], [place] [address] St ABORH CONFIRMATION (01/10/2020 4:25 PM CDT) ABO & RH O Positive LAB Comment: Performed at [facility] Services - [facility] Blood Bank [address] [place], [place] [address] Toll Free: [phone] CLIA No. [id number] Specimen Performing Organization Address City/State/Zipcode Phone Number BLD LAB CBC WITH DIFFERENTIAL (01/10/2020 3:33 PM CDT) WBC 7.63 4.20 - 10.70 [facility] RBC 4.42 4.26 - 5.52 [facility] 10*6/[facility] HGB 13.6 12.2 - 16.4 g/dL [facility] HCT 41.7 38.4 - 49.3 % [facility] MCV 94.3 81.7 - 95.6 fL [facility] MCH 30.8 26.1 - 32.7 pg [facility] MCHC 32.6 31.2 - 35.0 g/dL [facility] RDW-SD 50.6 38.5 - 51.6 fL [facility] RDW-CV 14.6 12.1 - 15.4 % [facility] PLT 257 150 - 328 [facility] 10*3/L [facility] MPV 9.5 (L) 9.8 - 13.0 fL [facility] NRBC/100 WBC 0.0 0.0 - 10.0 /100 [facility] WBCs [facility] NRBC x10^3 <0.01 10*3/L [facility] GRAN MAT (NEUT) % 62.5 % [facility] IMM GRAN % 0.50 % [facility] LYMPH % 25.0 % [facility] MONO % 6.8 % [facility] EOS % 4.5 % [facility] BASO % 0.7 % [facility] GRAN MAT x10^3(ANC) 4.77 1.99 - 6.95 [facility] 10*3/uL [facility] IMM GRAN x10^3 0.04 0.00 - 0.06 [facility] 10*3/uL [facility] LYMPH x10^3 1.91 1.09 - 3.23 [facility] 10*3/uL [facility] MONO x10^3 0.52 0.36 - 1.02 [facility] 10*3/uL [facility] EOS x10^3 0.34 0.06 - 0.53 [facility] 10*3/uL [facility] BASO x10^3 0.05 0.01 - 0.09 [facility] 10*3/uL [facility] Specimen Blood - ARM, LEFT Performing Organization Address City/State/Zipcode Phone Number [facility] CLIA: [id number], [address] [place], [place] [address] [facility] [address] COMP. METABOLIC PANEL (81674) (01/10/2020 3:33 PM CDT) NA 142 135 - 145 [facility] mmol/L [facility] K 4.1 3.5 - 5.0 [facility] mmol/L [facility] CL 104 98 - 108 mmol/L [facility] CO2 TOTAL 24 23 - 31 mmol/L [facility] AGAP 14 2 - 16 [facility] BUN 37 (H) 7 - 23 mg/dL [facility] GLUCOSE 115 (H) 70 - 110 mg/dL [facility] CREATININE 1.31 (H) 0.60 - 1.25 [facility] mg/dL [facility] TOTAL BILI 0.3 0.1 - 1.1 mg/dL [facility] CALCIUM 9.4 8.6 - 10.6 [facility] mg/dL [facility] T PROTEIN 8.0 6.3 - 8.2 g/dL [facility] ALBUMIN 4.4 3.5 - 5.0 g/dL [facility] ALK PHOS 112 34 - 122 U/L [facility] ALTv 17 5 - 50 U/L [facility] AST(SGOT) 30 13 - 40 U/L [facility] eGFR Calculation 53.6 mL/min/1.73m2 [facility] (Non-[facility]) [place] eGFR Calculation 65.0 mL/min/1.73m2 [facility] () [facility] Specimen Blood - ARM, LEFT Narrative Performed At Association of Glomerular Filtration Rate [facility] (GFR) and Staging of Kidney Disease* CAMPUS [...] abnormalities in imaging tests). Performing Organization Address City/[facility]/Zipcode Phone Number [facility] CLIA: [id number], [address] [place], [place] [address] [facility] [address] PROTHROMBIN TIME / INR (01/10/2020 3:33 PM CDT) PROTIME PATIENT 11.4 10.1 - 12.6 [facility] 1.0Comment: Normal [facility] INR <1.1; Warfarin [facility] Therapeutic range [facility] 2.0 to 3.0 or 2.5 to 3.5, depending upon the indications. Specimen Blood - ARM, LEFT Performing Organization Address City/[facility] Phone Number [facility] CLIA: [id number], [address] [place] [address] SERVICES-[facility] Type and Screen - Type and Screen expires at midnight on the 3rd day after it was drawn. A current Type and Screen is required when RBCs are requested. For all other blood products, a Type and Screen performed during the current hospitalization i... (01/10/2020 3:33 PM CDT) ABO & RH O Positive LAB Comment: Performed at [facility] Services - [facility] Blood Bank [address] [place] [id number] Toll Free: [phone] CLIA No. [id number] IAT Negative LAB Comment: Performed at [facility] Services - [facility] Blood Bank [address] [place] [id number] Toll Free: [phone] CLIA No. [id number] Specimen Blood - VENOUS Performing Organization Address City/State/Zipcode Phone Number BLD LAB documented in this encounter Visit Diagnoses Diagnosis CAD (coronary artery disease) - Primary Coronary atherosclerosis of unspecified type of vessel, [place] or graft Coronary arteriosclerosis in [place] artery Coronary atherosclerosis of [place] coronary artery S/P CABG (coronary artery bypass graft) Postsurgical aortocoronary bypass status Acute on chronic diastolic congestive heart failure Acute on chronic diastolic heart failure Coronary artery disease involving coronary bypass graft of [place] heart with angina pectoris S/P AVR Heart valve replaced by other means Nonrheumatic aortic valve stenosis Aortic valve disorders Dyslipidemia Other and unspecified hyperlipidemia Essential hypertension Unspecified essential hypertension Other emphysema Morbid obesity documented in this encounter Administered Medications Medication Order MAR Action Action Date Dose Rate Site acetaminophen (TYLENOL) suppository 650 mg 650 mg, Rectal, Q6HPRN, Starting 01/11/20 at 1514, Until Discontinued, ERIN , Temp > 38.5 C acetaminophen (TYLENOL) tablet 650 mg Given 01/18/2020 4:34 AM CDT 650 mg 650 mg, Oral, Q6HPRN, Starting 01/10/20 at 1401, Until Discontinued, Routine, Pain (scale 1-3) Given 01/14/2020 4:00 PM CDT 650 mg acetaminophen (TYLENOL) tablet 650 mg Given 01/17/2020 9:16 AM CDT 650 mg 650 mg, Oral, Q6HPRN, Starting Fri01/11/20 at 1514, Until Discontinued, ERIN, Temp > 38.5 C Given 01/17/2020 12:27 AM CDT 650 mg Given 01/16/2020 5:44 PM CDT 650 mg aspirin chewable tablet 81 mg Given 01/19/2020 9:22 AM CDT 81 mg 81 mg, Oral, DAILY, First dose on Fri01/13/20 at 0900, Until Discontinued, Routine Given 01/18/2020 8:34 AM CDT 81 mg Given 01/17/2020 8:19 AM CDT 81 mg atorvastatin (LIPITOR) tablet 20 mg Given 01/18/2020 7:42 PM CDT 20 mg 20 mg, Oral, QHS, First dose on Fri01/10/20 at 2100, Until Discontinued, Routine Given 01/17/2020 8:18 PM CDT 20 mg Given 01/16/2020 7:34 PM CDT 20 mg carvediloL (COREG) tablet 6.25 mg Given 01/19/2020 9:22 AM CDT 6.25 mg 6.25 mg, Oral, BID MEALS, First dose on Fri01/17/20 at 1700, Until Discontinued, Routine Given 01/18/2020 6:32 PM CDT 6.25 mg Given 01/18/2020 8:34 AM CDT 6.25 mg chlorhexidine (KIKI-HEX) 4 % liquid Topical, PRE-PROCEDURE ONCE, 1 dose, Starting Fri01/10/20 at 1349, Until Discontinued, Routine, Wound care clopidogreL (PLAVIX) tablet 75 mg Given 01/19/2020 9:22 AM CDT 75 mg 75 mg, Oral, DAILY, First dose on Fri01/12/20 at 0900, Until Discontinued, Routine, guardian family member approving Restricted medication: LITOGAGANDEEPHYAM Given 01/18/2020 8:34 AM CDT 75 mg Given 01/17/2020 8:19 AM CDT 75 mg dextrose 50 % in water (D50W) injection 25 mL 25 mL, Slow IV Push, PRN, Starting Fri01/11/20 at 1514, Until Discontinued, ERIN, Blood Glucose < or=70 mg/dL and patient is unable to swallow or has mental status changes. fenofibrate micronized (LOFIBRA) capsule 134 Given 01/18/2020 8:34 AM CDT 134 mg mg 134 mg, Oral, DAILY, First dose on Fri01/15/20 at 0900, Until Discontinued, Routine Given 01/17/2020 8:17 AM CDT 134 mg Given 01/16/2020 8:33 AM CDT 134 mg finasteride (PROSCAR) tablet 5 mg Given 01/19/2020 9:22 AM CDT 5 mg 5 mg, Oral, DAILY, First dose on Fri01/11/20 at 0900, Until Discontinued, Routine Given 01/18/2020 8:36 AM CDT 5 mg Given 01/17/2020 8:19 AM CDT 5 mg furosemide (LASIX) tablet 40 mg Given 01/19/2020 9:22 AM CDT 40 mg 40 mg, Oral, QAM+PM, First dose on Fri01/17/20 at 1700, Until Discontinued, Routine Given 01/18/2020 6:32 PM CDT 40 mg Given 01/18/2020 8:34 AM CDT 40 mg glucagon (GLUCAGEN DIAGNOSTIC KIT) injection 1 mg 1 mg, Intramuscular, PRN, Starting Fri01/11/20 at 1514, Until Discontinued, ERIN, Blood Glucose < or=70 mg/dL and patient is unable to swallow or has mental changes. heparin (porcine) injection Given 01/19/2020 9:23 AM CDT 5,000 Units Abdomen-SC 5,000 Units 5,000 Units, Subcutaneous, Q12H, First dose on Fri01/12/20 at 0800, Until Discontinued, Routine Given 01/18/2020 7:41 PM CDT 5,000 Units Abdomen-SC Given 01/18/2020 8:35 AM CDT 5,000 Units Abdomen-SC insulin glargine (LANTUS Given 01/19/2020 9:43 AM CDT 40 Units Left Upper Arm-SC U-100) injection 40 Units 40 Units, Subcutaneous, BID, First dose on Fri01/16/20 at 2000, Until Discontinued, Routine Given 01/18/2020 9:13 PM CDT 40 Units Abdomen-SC Given 01/18/2020 9:44 AM CDT 40 Units Abdomen-SC ipratropium (ATROVENT) 0.02 % nebulizer solution 0.5 mg 0.5 mg, Inhalation, PRN, Starting Fri01/15/20 at 2032, Until Discontinued, Routine, Wheezing, Shortness of Breath lidocaine 5 % ointment Given 01/19/2020 7:16 AM CDT Topical, BID, First dose on Fri01/18/20 at 2000, Until Discontinued, Routine Applied 01/18/2020 9:12 PM CDT mupirocin (BACTROBAN OINT) 2 % skin ointment Given 01/19/2020 7:16 AM CDT Applied 01/18/2020 9:12 PM CDT Given 01/18/2020 1:21 PM CDT NaCl 0.9% (NS) injection 10 mL 10 mL, Slow IV Push, PRN, Starting Fri01/17/20 at 1254, Until Discontinued, Routine, 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 nystatin (MYCOSTATIN) ointment Given 01/19/2020 7:16 AM CDT Topical, BID, First dose on Fri01/17/20 at 1715, Until Discontinued, Routine Applied 01/18/2020 9:12 PM CDT Given 01/18/2020 8:35 AM CDT omeprazole (PRILOSEC) capsule 20 mg Given 01/19/2020 9:22 AM CDT 20 mg 20 mg, Oral, DAILY, First dose on Fri01/11/20 at 0900, Until Discontinued, Routine Given 01/18/2020 8:34 AM CDT 20 mg Given 01/17/2020 8:18 AM CDT 20 mg ondansetron (ZOFRAN (PF)) injection 4 mg Given 01/14/2020 9:05 AM CDT 4 mg 4 mg, Slow IV Push, Q6HPRN, Starting Fri01/11/20 at 1517, Until Discontinued, ERIN, Nausea and Vomiting (N/V) Sliding Scale Insulin-Regular + Given 01/19/2020 12:08 PM 4 Units Right Upper Fsbg Testing CDT Arm-SC Subcutaneous, AC+HS, First dose on Fri01/10/20 at 1630, Until Discontinued, Routine Given 01/18/2020 9:13 PM CDT 2 Units Abdomen-SC Given 01/18/2020 5:20 PM CDT 2 Units Abdomen-SC tamsulosin (FLOMAX) capsule 0.4 mg Given 01/19/2020 9:49 AM CDT 0.4 mg 0.4 mg, Oral, BID, First dose on Fri01/10/20 at 2000, Until Discontinued, Routine Given 01/18/2020 7:42 PM CDT 0.4 mg Given 01/18/2020 8:34 AM CDT 0.4 mg Medication Order MAR Action Action Date Dose Rate Site albumin (ALBUMINAR-5) 5 % Given 01/11/2020 5:24 PM CDT 12.5 g injection 12.5 g 12.5 g, IV Infusion, ONCE, 1 dose, Fri01/11/20 at 1800, 250 mL, Indication: POST-OPERATIVE VOLUME RESUSCITATION-CARDIAC SURGERY, Comments: May only be used if 3L or more of crystalloid has been administered within a given 24 hour period without an adequate hemodynamic response. albumin (ALBUMINAR-5) 5 % injection 12.5 g Given 01/12/2020 1:21 AM CDT 12.5 g 12.5 g, IV Infusion, ONCE, 1 dose, Fri01/12/20 at 0230, 250 mL, Indication: POST-OPERATIVE VOLUME RESUSCITATION-CARDIAC SURGERY, Comments: May only be used if 3L or more of crystalloid has been administered within a given 24 hour period without an adequate hemodynamic response. aspirin chewable tablet 81 mg Given 01/12/2020 10:16 AM CDT 81 mg 81 mg, Enteral, ONCE, 1 dose, Fri01/12/20 at 1045, Routine aspirin tablet 325 mg Given 01/11/2020 9:21 PM CDT 325 mg 325 mg, Oral, DAILY, First dose on Fri01/11/20 at 1530, Until Discontinued, Routine calcium chloride 100 mg/mL (10 %) syringe Given 01/11/2020 4:25 PM CDT 1, 000 mg 1,000 mg 1,000 mg, Intravenous, ONCE, 1 dose, Fri01/11/20 at 1730, Routine calcium gluconate 1 g in NaCl 50 mL (ISO-OSM) Given 01/13/2020 5:58 PM CDT 1 g RTU IV infusion 1 g 1 g, IV Infusion, ONCE, 1 dose, Shweta 01/13/20 at 1745, Routine calcium gluconate 1 g in NaCl 50 mL (ISO-OSM) Given 01/14/2020 8:32 AM CDT 1 g RTU IV infusion 1 g 1 g, IV Infusion, ONCE, 1 dose, 01/14/20 at 0745, Routine calcium gluconate 1 g in NaCl 50 mL (ISO-OSM) Given 01/15/2020 5:21 PM CDT 1 g RTU IV infusion 1 g 1 g, IV Infusion, ONCE, 1 dose, 01/15/20 at 1745, Routine carvediloL (COREG) tablet 6.25 mg Given 01/10/2020 5:27 PM CDT 6.25 mg 6.25 mg, Oral, BID MEALS, First dose on Fri01/10/20 at 1700, Until Discontinued, Routine D5W-LR IV infusion 1,000 mL New Bag 01/11/2020 4:16 PM CDT 1,000 mL 50 mL/hr at 50 mL/hr, IV Infusion, CONTINUOUS, Starting Fri01/11/20 at 1530, Until Fri01/19/20 at 1033, ERIN DOBUTamine (DOBUTREX) 500 mg New Bag 01/14/2020 5:11 AM CDT 2 mcg/kg/min 6.7 mL/hr in 250 mL (Fixed Dose) D5W infusion RTU 2.5-20 mcg/kg/min 111.7 kg (8.3775-67.02 mL/hr, rounded to 8.38-67.02 mL/hr), IV Infusion, TITRATE, Cardiac Index > 2 L/min/m2, Starting Fri01/11/20 at 1721, Initiate infusion at 2.5 mcg/kg/min. Increase by 1 mcg/kg/min every 15 minutes as needed to reach and maintain goal blood pressure. Maximum dose=20 mcg/kg/min. If goal not maintained at maximum allowed dose, contact prescriber., Dose/Rate Verify 01/14/2020 3:57 AM CDT 2 mcg/kg/min 6.7 mL/hr Rate Change 01/13/2020 2:44 PM CDT 2 mcg/kg/min 6.7 mL/hr docusate (COLACE) 50 mg/5 mL solution 100 mg Given 01/14/2020 8:32 AM CDT 100 mg 100 mg, Enteral, DAILY, First dose on Fri01/12/20 at 1000, Until Discontinued, Routine Given 01/13/2020 7:33 AM CDT 100 mg Given 01/12/2020 10:18 AM CDT 100 mg EPINEPHrine HCl in 0.9 % Restarted 01/13/2020 3:45 AM 0.01 mcg/kg/min 4.19 mL/hr NaCl 4 mg/250 mL (16 CDT mcg/mL) infusion RTU 0.01-0.7 mcg/kg/min 111.7 kg (4.9747-934.2148 mL/hr, rounded to 4.19-293.21 mL/hr), IV Infusion, TITRATE, MAP Goal > or=65 mmHg, Starting 01/11/20 at 1618, Initiate rate at 0.01 mcg/kg/min. Titrate by 0.05 mcg/kg/min every 30 seconds to 10 minutes as needed to reach and maintain goal blood pressure. Maximum dose=0.7 mcg/kg/min. If goal not maintained at maximum allowed dose, contact prescriber., Rate Change 01/12/2020 9:00 PM CDT 0.01 mcg/kg/min 4.19 mL/hr New Bag 01/12/2020 4:38 PM CDT 0.015 mcg/kg/min 6.28 mL/hr epoprostenol (FLOLAN) 500 Rate Change 01/12/2020 10:36 AM CDT 5 ng/kg/min 3.35 mL/hr mcg in sterile diluent 50 mL nebulizer solution at 6.7 mL/hr, 10 ng/kg/min 111.7 kg (6.702 mL/hr, rounded to 6.7 mL/hr), Inhalation, CONTINUOUS, Starting 01/11/20 at 1830, Until 01/12/20 at 1045, Routine New Bag 01/12/2020 7:36 AM CDT 10 ng/kg/min 6.7 mL/hr New Bag 01/11/2020 11:45 PM CDT 10 ng/kg/min 6.7 mL/hr epoprostenol (FLOLAN) Dose/Rate Verify 01/12/2020 11:00 AM 5 ng/kg/min 3.35 mL/hr 500 mcg in sterile CDT diluent 50 mL nebulizer solution at 3.35 mL/hr, 5 ng/kg/min 111.7 kg (3.351 mL/hr, rounded to 3.35 mL/hr), Inhalation, CONTINUOUS, Starting 01/12/20 at 1100, Until Shweta 01/13/20 at 1928, Routine FENTanyl PF (SUBLIMAZE (PF)) injection Given 01/13/2020 4:32 PM CDT 12.5 mcg 12.5 mcg 12.5 mcg, Slow IV Push, ONCE, 1 dose, Shweta 01/13/20 at 1630, Routine FENTanyl PF (SUBLIMAZE (PF)) injection 50 Given 01/12/2020 3:06 PM CDT 50 mcg mcg 50 mcg, Slow IV Push, Q3HPRN, Starting Fri01/12/20 at 0026, Until Fri01/12/20 at 2309, Routine, Pain (scale 7-10) Given 01/12/2020 8:10 AM CDT 50 mcg Given 01/12/2020 3:28 AM CDT 50 mcg furosemide (LASIX) injection 20 mg Given 01/14/2020 4:00 PM CDT 20 mg 20 mg, IV Push, PRN, 2 doses, Starting Fri01/11/20 at 1514, Until Fri01/14/20 at 1600, ERIN, Pressure Maintenance Given 01/13/2020 11:57 PM CDT 20 mg furosemide (LASIX) injection 20 mg Given 01/13/2020 11:24 AM CDT 20 mg 20 mg, Slow IV Push, ONCE, 1 dose, Shweta 01/13/20 at 1130, Routine furosemide (LASIX) injection 20 mg Given 01/14/2020 2:14 PM CDT 20 mg 20 mg, Slow IV Push, Q8H, First dose on Fri01/13/20 at 2200, Until Discontinued, Routine Given 01/14/2020 4:50 AM CDT 20 mg Given 01/13/2020 9:58 PM CDT 20 mg furosemide (LASIX) injection 40 mg Given 01/16/2020 5:50 AM CDT 40 mg 40 mg, Slow IV Push, Q6H, First dose on Fri01/14/20 at 1800, Until Discontinued, Routine Given 01/15/2020 11:28 PM CDT 40 mg Given 01/15/2020 5:20 PM CDT 40 mg furosemide (LASIX) injection 40 mg Given 01/17/2020 5:20 AM CDT 40 mg 40 mg, Slow IV Push, Q8H, First dose on Fri01/16/20 at 1400, Until Discontinued, Routine Given 01/16/2020 9:12 PM CDT 40 mg Given 01/16/2020 2:12 PM CDT 40 mg gemfibrozil (LOPID) tablet 600 mg Given 01/14/2020 8:34 AM CDT 600 mg 600 mg, Oral, BIDAC, First dose on Fri01/10/20 at 1630, Until Discontinued, Routine Given 01/13/2020 7:34 AM CDT 600 mg Given 01/12/2020 4:31 PM CDT 600 mg HYDROcodone-acetaminophen (NORCO 5) 5-325 Given 01/12/2020 10:16 AM CDT 1 tablet mg tablet 1 tablet 1 tablet, Oral, Q6HPRN, Starting Fri01/10/20 at 1401, Until Fri01/12/20 at 1400, Routine, Pain (scale 4-6) HYDROcodone-acetaminophen (NORCO 5) 5-325 Given 01/14/2020 8:34 AM CDT 1 tablet mg tablet 1 tablet 1 tablet, Oral, Q6HPRN, Starting Fri01/12/20 at 1542, Until Fri01/14/20 at 1054, Routine, Pain (scale 4-6) Given 01/13/2020 7:34 AM CDT 1 tablet Given 01/12/2020 4:30 PM CDT 1 tablet insulin glargine (LANTUS U-100) Given 01/16/2020 8:30 AM CDT 30 Units Abdomen-SC injection 30 Units 30 Units, Subcutaneous, BID, First dose on Fri01/15/20 at 1000, Until Discontinued, Routine Given 01/15/2020 8:25 PM CDT 30 Units Abdomen-SC Given 01/15/2020 11:49 AM CDT 30 Units Abdomen insulin glargine (LANTUS U-100) Given 01/14/2020 8:43 PM CDT 40 Units Abdomen-SC injection 40 Units 40 Units, Subcutaneous, QHS, First dose on Fri01/14/20 at 2100, Until Discontinued, Routine insulin regular human (HUMULIN New Bag 01/14/2020 8:00 AM CDT 5 Units/hr 5 mL/hr R) 100 Units in NaCl 0.9% (NS) 100 mL infusion 2 Units/hr (2 mL/hr), IV Infusion, TITRATE, Starting Fri01/11/20 at 2038, Until Fri01/14/20 at 1902 Dose/Rate Verify 01/14/2020 3:57 AM CDT 6 Units/hr 6 mL/hr Rate Change 01/14/2020 3:21 AM CDT 6 Units/hr 6 mL/hr KCL (KLOR-CON M20) tablet 40 mEq Given 01/15/2020 5:20 PM CDT 40 mEq 40 mEq, Oral, ONCE, 1 dose, 01/15/20 at 1745, Routine KCL (KLOR-CON M20) tablet 40 mEq Given 01/16/2020 1:32 AM CDT 40 mEq 40 mEq, Oral, ONCE, 1 dose, 01/16/20 at 0130, Routine KCL (KLOR-CON M20) tablet 40 mEq Given 01/16/2020 7:34 PM CDT 40 mEq 40 mEq, Oral, ONCE, 1 dose, 01/16/20 at 2000, Routine KCL (KLOR-CON M20) tablet 40 mEq Given 01/17/2020 1:08 AM CDT 40 mEq 40 mEq, Oral, ONCE NOW, 1 dose, 01/17/20 at 0100, Routine KCL (KLOR-CON M20) tablet 40 mEq Given 01/17/2020 5:48 PM CDT 40 mEq 40 mEq, Oral, ONCE, 1 dose, 01/17/20 at 1800, Routine KCL 10 mEq/50 mL Piggyback 10 mEq Given 01/12/2020 1:05 PM CDT 10 mEq 50 mL/hr 10 mEq, IV Piggyback, ONCE, 1 dose, 01/12/20 at 1415, 50 mL lidocaine 5 % ointment Given 01/17/2020 5:45 PM CDT Topical, ONCE, 1 dose, 01/17/20 at 1730, Routine magnesium sulfate in D5W 1 gram/100 mL RTU IV Given 01/12/2020 10:51 PM CDT 1 g Piggyback 1 g 1 g, IV Piggyback, ONCE, 1 dose, 01/12/20 at 2330, 100 mL magnesium sulfate in D5W 1 gram/100 mL RTU IV Given 01/13/2020 4:05 AM CDT 1 g Piggyback 1 g 1 g, IV Piggyback, ONCE, 1 dose, Shweta 01/13/20 at 0445, 100 mL magnesium sulfate in D5W 1 gram/100 mL RTU IV Given 01/15/2020 2:11 AM CDT 1 g Piggyback 1 g 1 g, IV Piggyback, ONCE, 1 dose, 01/15/20 at 0300, 100 mL magnesium sulfate in D5W 1 gram/100 mL RTU IV Given 01/16/2020 7:34 PM CDT 1 g Piggyback 1 g 1 g, IV Piggyback, ONCE, 1 dose, 01/16/20 at 2000, 100 mL magnesium sulfate in water 2 gram/50 mL (4 %) New 01/11/2020 4:20 PM CDT 2 g infusion 2 g 2 g, IV Piggyback, ONCE, 1 dose, 01/11/20 at 1730, Routine magnesium sulfate in water 2 gram/50 mL (4 %) New 01/11/2020 8:25 PM CDT 2 g infusion 2 g 2 g, IV Piggyback, ONCE, 1 dose, 01/11/20 at 2130, Routine magnesium sulfate in water 2 gram/50 mL (4 %) 01/12/2020 12:50 AM CDT 2 g infusion 2 g 2 g, IV Piggyback, ONCE, 1 dose, 01/12/20 at 0100, ERIN magnesium sulfate in water 2 gram/50 mL (4 %) 01/12/2020 9:30 AM CDT 2 g infusion 2 g 2 g, IV Piggyback, ONCE, 1 dose, 01/12/20 at 1030, Routine magnesium sulfate in water 2 gram/50 mL (4 %) 01/14/2020 4:51 AM CDT 2 g infusion 2 g 2 g, IV Piggyback, ONCE, 1 dose, 01/14/20 at 0530, Routine magnesium sulfate in water 2 gram/50 mL (4 %) 01/15/2020 5:21 PM CDT 2 g infusion 2 g 2 g, IV Piggyback, ONCE, 1 dose, 01/15/20 at 1745, Routine magnesium sulfate in water 2 gram/50 mL (4 %) 01/17/2020 5:57 PM CDT 2 g infusion 2 g 2 g, IV Piggyback, ONCE, 1 dose, 01/17/20 at 1800, Routine midazolam (VERSED) injection 4 mg Given 01/12/2020 2:02 AM CDT 4 mg 4 mg, IV Push, ONCE, 1 dose, 01/12/20 at 0130, Routine milrinone in D5W Rate Change 01/12/2020 2:50 AM 0.05 mcg/kg/min 1.68 mL/ hr (PRIMACOR) 40 mg/200 mL CDT infusion RTU 0.125-0.75 mcg/kg/min 111.7 kg (4.1888-25.1325 mL/hr, rounded to 4.19-25.13 mL/hr), IV Infusion, TITRATE, use with dobutamine to keep CI great than 2, Starting Fri01/11/20 at 2016, Initiate infusion at 0.125 mcg/kg/min. Increase by 0.125 mcg/kg/min every 15 minutes as needed to reach and maintain goal blood pressure. Maximum dose=0.75 mcg/kg/min. If goal not maintained at maximum allowed dose, contact prescriber., Rate Change 01/12/2020 2:36 AM CDT 0.1 mcg/kg/min 3.35 mL/hr Rate Change 01/11/2020 11:01 PM CDT 0.125 mcg/kg/min 4.19 mL/hr NORepinephrine 4 mg in D5W Rate Change 01/12/2020 4:24 0.02 mcg/kg/min 8.38 mL/hr 250 mL infusion RTU AM CDT 0.05-3 mcg/kg/min 111.7 kg (20.9438-1,256.625 mL/hr, rounded to 20.94-1,256.63 mL/hr), IV Infusion, TITRATE, MAP Goal > or=65 mmHg, Starting Fri01/11/20 at 1614, Initiate titration at 0.05 mcg/kg/min. Increase by 0.01 mcg/kg/min every 30 seconds to 5 minutes as needed to reach and maintain goal blood pressure. Maximum dose=3 mcg/kg/min. If goal not maintained at maximum allowed dose, contact prescriber., Rate Change 01/12/2020 2:00 AM CDT 0.03 mcg/kg/min 12.57 mL/hr Rate Change 01/11/2020 11:58 PM CDT 0.04 mcg/kg/min 16.76 mL/hr potassium chloride 20 mEq/100 mL Given 01/12/2020 6:01 PM CDT 20 mEq 50 mL /hr (KCL) 20 mEq/100 mL RTU IVPB 20 mEq 20 mEq, IV Piggyback, ONCE, 1 dose, 01/12/20 at 1815, 100 mL potassium chloride 20 mEq/100 mL Given 01/13/2020 4:05 AM CDT 20 mEq 50 mL /hr (KCL) 20 mEq/100 mL RTU IVPB 20 mEq 20 mEq, IV Piggyback, ONCE, 1 dose, Shweta 01/13/20 at 0445, 100 mL potassium chloride 20 mEq/100 mL Given 01/13/2020 8:24 PM CDT 20 mEq 50 mL /hr (KCL) 20 mEq/100 mL RTU IVPB 20 mEq 20 mEq, IV Piggyback, ONCE, 1 dose, Shweta 01/13/20 at 1845, 100 mL potassium chloride 20 mEq/100 mL Given 01/14/2020 4:51 AM CDT 20 mEq 50 mL /hr (KCL) 20 mEq/100 mL RTU IVPB 20 mEq 20 mEq, IV Piggyback, ONCE, 1 dose, 01/14/20 at 0515, 100 mL potassium chloride 20 mEq/100 mL (KCL) 20 Given 01/15/2020 10:14 AM CDT 20 mEq mEq/100 mL RTU IVPB 20 mEq 20 mEq, IV Piggyback, ONCE, 1 dose, 01/15/20 at 1045, 100 mL potassium chloride 40 mEq in 100 mL Given 01/15/2020 2:12 AM CDT 40 mEq 12.5 mL/hr IVPB 20 mEq, Intravenous, ONCE, 1 dose, 01/15/20 at 0230, 100 mL propofol IV infusion Rate Change 01/12/2020 3:26 PM 20 mcg/kg/min 13.4 mL/hr 5-75 mcg/kg/min CDT 111.7 kg (3.351-50.265 mL/hr, rounded to 3.35-50.27 mL/hr), IV Infusion, TITRATE, Sedation-RASS score (0 to -1), Starting 01/11/20 at 1614, For 1 day, Initiate infusion at 5 mcg/kg/min and titrate by 5 mcg/kg/min every 30 seconds to 10 minutes to goal sedation score. Maximum dose=75 mcg/kg/min. If goal not maintained at maximum allowed dose, contact prescriber. Instructions In the first 2 hours in ICU, if patient is hypertensive (systolic blood pressure persists > 150 MAP > 100), the infusion rate may be increased to a maximum of 75 mcg/kg/min. Stop propofol when bladder or other central temperature is=> 36 C. May use morphine at this time (may require order to be entered) if sedation is still needed. Do not continue propofol after central temperature is > 36 C unless requested by [address] Resident or Faculty or SICU Faculty. Tubing and unused portions of vials should be discarded after 12 hours, Rate Change 01/12/2020 1:45 PM CDT 15 mcg/kg/min 10.05 mL/hr Restarted 01/12/2020 12:38 PM CDT 10 mcg/kg/min 6.7 mL/hr propofol IV infusion Dose/Rate Verify 01/13/2020 8:00 15 mcg/kg/min 11.42 mL/hr 5-75 mcg/kg/min AM CDT 126.9 kg (3.807-57.105 mL/hr, rounded to 3.81-57.11 mL/hr), IV Infusion, TITRATE, Sedation-RASS score (0 to -1), Starting Fri01/12/20 at 1619, Initiate infusion at 5 mcg/kg/min and titrate by 5 mcg/kg/min every 30 seconds to 10 minutes to goal sedation score. Maximum dose=75 mcg/kg/min. If goal not maintained at maximum allowed dose, contact prescriber. Tubing and unused portions of vials should be discarded after 12 hours., Rate Change 01/13/2020 6:00 AM CDT 15 mcg/kg/min 11.42 mL/hr New Bag 01/13/2020 2:51 AM CDT 35 mcg/kg/min 26.65 mL/hr sennosides (SENOKOT) tablet 8.6 mg Given 01/14/2020 8:44 AM CDT 8.6 mg 8.6 mg, Oral, DAILY, First dose on Fri01/12/20 at 0900, Until Discontinued, Routine Given 01/13/2020 7:34 AM CDT 8.6 mg Given 01/12/2020 10:16 AM CDT 8.6 mg sildenafil (REVATIO) tablet 10 mg Given 01/17/2020 8:18 AM CDT 10 mg 10 mg, Oral, DAILY, First dose on Fri01/14/20 at 0900, Until Discontinued, Routine Given 01/16/2020 8:33 AM CDT 10 mg Given 01/15/2020 8:59 AM CDT 10 mg sodium bicarbonate 1 mEq/mL (8.4 %) Given 01/11/2020 4:25 PM CDT 50 mEq injection 50 mEq 50 mEq, Slow IV Push, ONCE, 1 dose, Fri01/11/20 at 1730, Routine sodium bicarbonate 1 mEq/mL (8.4 %) Given 01/11/2020 4:25 PM CDT 50 mEq injection 50 mEq 50 mEq, Slow IV Push, ONCE, 1 dose, Fri01/11/20 at 1730, Routine sodium bicarbonate 1 mEq/mL (8.4 %) Given 01/11/2020 4:25 PM CDT 50 mEq injection 50 mEq 50 mEq, Slow IV Push, ONCE, 1 dose, Fri01/11/20 at 1730, Routine sodium bicarbonate 1 mEq/mL (8.4 %) Given 01/12/2020 12:32 AM CDT 50 mEq injection 50 mEq 50 mEq, Slow IV Push, ONCE, 1 dose, Fri01/12/20 at 0130, Routine sodium bicarbonate 1 mEq/mL (8.4 %) Given 01/12/2020 8:22 PM CDT 50 mEq injection 50 mEq 50 mEq, Slow IV Push, ONCE, 1 dose, Fri01/12/20 at 2115, Routine sodium phosphate 15 mmol in NaCl 0.9% (NS) Given 01/13/2020 10:41 AM CDT 15 mmol 250 mL piggyback 15 mmol, IV Piggyback, ONCE, 1 dose, [facility] 01/13/20 at 1030, 250 mL vancomycin (VANCOCIN) 1,500 mg in NaCl Given 01/12/2020 2:31 AM CDT 1,500 mg 0.9% (NS) 250 mL piggyback 1,500 mg (rounded from 1,675.5 mg=15 mg/kg 111.7 kg), IV Piggyback, Q12H ABX, 2 doses, First dose on Fri01/11/20 at 1530, Last dose on Fri01/12/20 at 0330, 250 mL, Reason for Anti-Infective: Surgical Prophylaxis, Surgical Prophylaxis: Cardiothoracic, Duration of therapy: within 24 hours of surgery Given 01/11/2020 5:22 PM CDT 1,500 mg documented in this encounter Insurance Payer Benefit Plan / Subscriber ID Effective Phone Address Type Group Dates MEDICARE MEDICARE PART xxxxxxxxxxx 2011-Pr [phone] [address] Medicare A [employer] B esent [id number] [place] [id number] [facility] [id number] 2018-Pre [address] Medicare HEALTHCARE HEALTHCARE sent [id number] Supplement MEDICARE [place] SUPPLEMENT [place] [id number] documented as of this encounter
[2020-01-19] MEDS ORDERED: ACETAMINOPHEN 325 MG TABLET PO PRN (16:31)
[2020-01-19] MEDS ORDERED: GLUCAGON 1 MG/VIAL IM PRN ×2 (16:38→16:40)
[2020-01-19] MEDS ORDERED: D50W 25 GM/50 ML SYRINGE/VIAL IV PRN ×2 (16:38→16:40)
[2020-01-19 17:00] LABS: Urine Appearance CLEAR; Urine Bilirubin NEGATIVE (NEG); Urine Blood NEGATIVE (NEG); Urine Color YELLOW; Urine Glucose NEGATIVE (NEG); Urine Protein NEGATIVE (NEG)
[2020-01-19] MEDS: glipiZIDE 5 MG TAB PO SCH (17:00)
[2020-01-19] MEDS: METFORMIN HCL 500 MG TAB PO SCH (17:00)
[2020-01-19] MEDS: FUROSEMIDE 40 MG TABLET PO SCH (17:00)
[2020-01-19 17:29] LABS: Urine Bacteria <20 /HPF (NONE SEEN); Urine Culture Reflex Order NOT NEEDED; Urine RBC <5 /HPF (NONE SEEN)
[2020-01-19] MEDS: HEPARIN 5000 UNIT/ML 1 ML VIAL SQ SCH (19:14)
[2020-01-19] MEDS: carvediloL 6.25 MG TAB PO SCH (20:00)
[2020-01-19] MEDS: INSULIN -REGULAR HUMAN 50 UNIT/0.5 ML ML SQ SCH (21:00)
[2020-01-19] MEDS: gemfibroziL 600 MG TAB PO SCH (21:00)
[2020-01-19] MEDS: TAMSULOSIN 0.4 MG SR CAP PO SCH (21:01)
[2020-01-19] MEDS: ATORVASTATIN 20 MG TAB PO SCH (21:01)
[2020-01-19] MEDS: INSULIN GLARGINE 100 UNITS/ML SQ SCH (21:02)
[2020-01-19] MEDS: NYSTATIN OINT 15 GM TUBE TOP SCH (21:03)
[2020-01-20 06:24] LABS: Absolute Lymphocytes (CBC) 1.3 K/uL (0.7-4.9); Hematocrit 24.3 % (39.6-49.0); Lymphocytes % 19.1 % (15.3-44.8); MPV 6.8 fL (7.6-11.3); RBC Red Blood Cell Count 2.65 M/uL (4.33-5.43)
[2020-01-20] MEDS: HEPARIN 5000 UNIT/ML 1 ML VIAL SQ SCH ×2 (07:00→18:11)
[2020-01-20] MEDS: INSULIN -REGULAR HUMAN 50 UNIT/0.5 ML ML SQ SCH ×4 (07:30→20:13)
[2020-01-20] MEDS: lisinopriL 20 MG TAB PO SCH (08:00)
[2020-01-20] MEDS: carvediloL 6.25 MG TAB PO SCH ×2 (08:00→20:00)
[2020-01-20] MEDS: gemfibroziL 600 MG TAB PO SCH ×2 (08:15→20:11)
[2020-01-20] MEDS: glipiZIDE 5 MG TAB PO SCH ×2 (08:16→17:32)
[2020-01-20] MEDS: ASPIRIN EC 81 MG TAB PO SCH (08:16)
[2020-01-20] MEDS: FENOFIBRATE 160 MG TAB PO SCH (08:16)
[2020-01-20] MEDS: PANTOPRAZOLE 40MG TABLET PO SCH (08:16)
[2020-01-20] MEDS: FINASTERIDE 5 MG TAB PO SCH (08:16)
[2020-01-20] MEDS: TAMSULOSIN 0.4 MG SR CAP PO SCH ×2 (08:16→20:12)
[2020-01-20] MEDS: NYSTATIN OINT 15 GM TUBE TOP SCH ×2 (08:16→20:12)
[2020-01-20] MEDS: FUROSEMIDE 40 MG TABLET PO SCH ×2 (08:17→17:32)
[2020-01-20] MEDS: METFORMIN HCL 500 MG TAB PO SCH ×2 (08:17→17:32)
[2020-01-20] MEDS: INSULIN GLARGINE 100 UNITS/ML SQ SCH ×2 (08:18→20:12)
[2020-01-20] MEDS: CLOPIDOGREL 75 MG TABLET PO SCH (08:19)
[2020-01-20] MEDS: TRAMADOL HCL 50 MG TAB PO PRN ×3 (08:19→22:19)
[2020-01-20 08:43] LABS: Albumin 2.3 g/dL (3.4-5.0); Magnesium 2.3 mg/dL (1.8-2.4); Potassium 3.8 mmol/L (3.5-5.1); Prealbumin 9.3 mg/dL (20-40)
--- NOTE | 2020-01-20 17:46 | R.HP ---
FACILITY: [facility] ENCOUNTER DATE AND TIME: 01/20/2020 17:37 (CDT) MR#: [id number] NAME JUAN DIEGO OLIVEIRA ADDRESS: [address] [place] [address] CITY: [place] [address]IP [id number] PHONE: DATE OF : 1945 AGE: 74 SSN# [id number] GENDER: Male DEXTERITY Right-handed MARITAL STATUS RACE White PRE-HOSPITAL LIVING SETTING 01 - Home (private home/apt. board/care, assisted living, fdc, transitional living) PRE-HOSPITAL LIVING WITH Family/Relatives ENCOUNTER PHYSICIAN: Dr. Eduardo Bajwa M.D. REFERRING DOCTOR: Dr POWERS DATE OF ADMISSION: 01/19/2020 15:43 (CDT) REFERRING FACILITY [facility] PRIMARY CARE PHYSICIAN Dr Garay HOME TYPE AND DETAILS: Type of home: single family house # of levels in the residence: 1 # of steps within the residence: 0 # of steps to enter the residence: 0 ONSET DATE: 01/19/2020 PRIMARY DIAGNOSIS-RELATED SURGERIES: BLADDER BIOPSY CHOLECYSTECTOMY TONSILLECTOMY HISTORY OF PRESENT ILLNESS (HPI): Pt. is a 74 yo Right-handed white male. On 01/19/2020 he was admitted to [facility] with diagnosis CABG. His impairment category is Cardiac - Cardiac Disorders (09). Pre-morbidly, Pt. was independent/mod-I in Balance, Self-Care, Communication, Endurance, Transfers Co ntrol, Social Cognition, Sphincter Control, Safety Awareness, and Locomotion; and he had good Safety Awareness, Balance, Social Cognition, Communication, Self-Care, and Endurance. Currently, he has deficits of Endurance, Self-Care, Sphincter Control, Transfers Control, Social Cogn ition, Safety Awareness, Locomotion, and Communication. Pt. is now referred to [facility] for acute in-patient rehabilitation in order to maximize patient's functional independence in activities of daily living, strength, ROM, and mobi lity. Patient has realistic goal of being discharged at assistance level 2-maxA to reside at Home with Fam amrik/Relatives. Juan Diego Joaquin is a 74 year old male that lives by his self independently next door to his family. He has no stairs to enter his home. He was independently living at home an d doing things for himself before having his surgery. He has tons of family support for when he goes home. He has a history of cancer, diabetes mellitus and hypertension. He was admitted to the hospital preparing for CABG last week at [facility]. Patient denied any current chest pain or shortness of breath, he denied any fever or upper respiratory tract symptoms. Patient has been admitted at [facility] and is hemodynamically stable with relatively stable labs. He is now medically stable but in need of 24 hour nursing, doctor supervision and oversight while receiving active and ongoing participate in 3 hours of therapy a day/15 hours per week and receive care with intensive interdisciplinary approach. MEDICATION ALLERGIES: CIPROFLOXACIN PEN (PENICILLINS) ENVIRONMENTAL ALLERGIES: - Substance Allergies None Known - Other Allergies None Known PAST MEDICAL HISTORY: CANCER DIABETES MELLITUS HYPERTENSION PAST SURGICAL HISTORY: BLADDER BIOPSY CHOLECYSTECTOMY TONSILLECTOMY FAMILY HISTORY: Family history is not contributory. SOCIAL HISTORY: - Home Living Family/Relatives REVIEW OF SYSTEMS: - Gen No Chills Fatigue No Fever - Eyes No Double Vision No itchiness - ENMT No Difficulty Swallowing - CVS Chest Discomfort Chest Pain Fatigue No Weight Gain - Resp No Cough Shortness of Breath - GI Continent No Abdominal Pain No Constipation No Diarrhea - Continent No Kidney Pain No Painful Urination No Urinary Urgency - MSK No Joint Pain Muscle Cramps Stiffness - Skin No Itching No Rash No Suspicious Lesions - Neuro Coordination Difficulty No Difficulty with Concentration No Memory Loss No Seizures Weakness - Psych No Anxiety No Depression No HIV Exposure No Persistent Infections No Seasonal Allergies - Endo No Cold/Heat Intolerance No Excessive Hunger No Excessive Thirst No Excessive Urination PHYSICAL EXAM - Gen Alert and awake Sitting in chair No apparent distress Oriented to: person, time, and place - Skin No skin breakdown. Normacephalic - Eyes No abnormalities - ENMT No abnormalities - Neck No abnormalities - CVS RRR - Chest Incision is healing with good hemostasis. - Resp Clear to auscultation - Abd Soft - GI Non distended Deferred - No abnormalities - Ext Surgical site intact. Mild bilateral lower extremity edema. - MSK 1/5 weakness in foot dorsiflexion and 4/5 proximally, bilaterally. - Neuro 1/5 weakness in foot dorsiflexion and 4/5 proximally, bilaterally. - Psych No abnormalities VITAL SIGNS Temperature: 97.9 F SBP/DBP: 135/57 Pulse: 87 Resp: 16 NURSING: - Shower allowing shower ACTIVITIES OOB only with supervision QI SCORES: - Self-Care A. Eating 06-Independent B. Oral hygiene 01-Dependent C. Toileting hygiene 02-Substantial/maximal assistance E. Shower/bathe self 02-Substantial/maximal assistance F. Upper body dressing 03-Partial/moderate assistance G. Lower body dressing 88-Not attempted due to medical condition or safety concerns H. Putting on/taking off footwear 03-Partial/moderate assistance - Mobility A. Roll left and right 04-Supervision or touching assistance B. Sit to lying 03-Partial/moderate assistance C. Lying to sitting on side of bed 03-Partial/moderate assistance D. Sit to stand 02-Substantial/maximal assistance E. Chair/qio-wq-eshie transfer 02-Substantial/maximal assistance F. Toilet transfer 02-Substantial/maximal assistance G. Car transfer 88-Not attempted due to medical condition or safety concerns I. Walk 10 feet 88-Not attempted due to medical condition or safety concerns J. Walk 50 feet with two turns 88-Not attempted due to medical condition or safety concerns K. Walk 150 feet 88-Not attempted due to medical condition or safety concerns L. Walking 10 feet on uneven surfaces 88-Not attempted due to medical condition or safety concerns M. 1 step (curb) 88-Not attempted due to medical condition or safety concerns N. 4 steps 88-Not attempted due to medical condition or safety concerns O. 12 steps 88-Not attempted due to medical condition or safety concerns P. Picking up object 06-Independent R. Wheel 50 feet with two turns 88-Not attempted due to medical condition or safety concerns S. Wheel 150 feet 88-Not attempted due to medical condition or safety concerns - Bladder and Bowel Bladder continence 0-Always continent Bowel continence 0-Always continent - Endurance Fair - Balance Poor - Safety Awareness Fair CURRENT FUNC. DEFICITS: Mobility, Endurance, Balance, Safety Awareness, and Self-Care MEDICATIONS: - Other See attached MAR (Medication Administration Record) ASSESSMENT: Pt. is a 74 yo Right-handed white male.On 01/19/2020 he was admitted to [facility] with diagnosis CABG.His impairment category is Cardiac - Cardiac Disorders (09).Pre-morbidly, Pt. was independent/mod-I in B alance, Self-Care, Communication, Endurance, Transfers Control, Social Cognition, Sphincter Control, Safety Awareness, and Locomotion; and he had good Safety Awareness, Balance, Social Cognition, Commun ication, Self-Care, and Endurance.Currently, he has deficits of Endurance, Self-Care, Sphincter Contr ol, Transfers Control, Social Cognition, Safety Awareness, Locomotion, and Communication.Pt. is now r eferred to [facility] for acute in-patient rehabilitation in order to maximize patient's functional independence in activities of daily living, strength, ROM, and mobility.- Rehab Goal Patient has realistic goal of being discharged at assistance level 2-maxA to reside at Home with Fam amrik/Relatives. Juan Diego Joaquin is a 74 year old male that lives by his self independently next door to his family. He has no stairs to enter his home. He was independently living at home an d doing things for himself before having his surgery. He has tons of family support for when he goes home. He has a history of cancer, diabetes mellitus and hypertension. He was admitted to the hospital preparing for CABG last week at [facility]. Patient denied any current chest pain or shortness of breath, he denied any fever or upper respiratory tract symptoms. Patient has been admitted at [facility] and is hemodynamically stable with relatively stable labs. He is now medically stable but in need of 24 hour nursing, doctor supervision and oversight while receiving active and ongoing participate in 3 hours of therapy a day/15 hours per week and receive care with intensive interdisciplinary approach.REHAB PLAN: - Physical Therapy Weakness - to improve, our physical therapists will perform initial evaluation of pt's status upon a dmission and devise an individualized program for Aquatic Therapy, Neuromuscular Reeducation, and Str engthening Inability to transfer - to improve, our physical therapists will perform initial evaluation of pt's status upon admission and devise an individualized program for Bed mobility Need in caregiver upon discharge - to improve, our physical therapists will perform initial evaluati on of pt's status upon admission and devise an individualized program for Caregiver Training Poor endurance - to improve, our physical therapists will perform initial evaluation of pt's status upon admission and devise an individualized program for Endurance Training Gait dysfunction - to improve, our physical therapists will perform initial evaluation of pt's statu s upon admission and devise an individualized program for Gait Training, and Wheel Chair mobility Need for home safety evaluation - to improve, our physical therapists will perform initial evaluatio n of pt's status upon admission and devise an individualized program for Home Evaluation New precaution - to improve, our physical therapists will perform initial evaluation of pt's status upon admission and devise an individualized program for Patient precaution education Edema - to improve, our physical therapists will perform initial evaluation of pt's status upon admi ssion and devise an individualized program for Elevation Training, and Lymphedema Therapy - Occupational Therapy Weakness - to improve, our occupation therapists will perform initial evaluation of pt's status upon admission and devise an individualized program for Aquatic Therapy, Balance, Endurance, UE ROM, and UE strengthening ADL deficits - to improve, our occupation therapists will perform initial evaluation of pt's status upon admission and devise an individualized program for Bathing, Bed mobility, Community Reintegratio n, Cooking, Dressing, Eating, Fine Motor Skills, Grooming, Homemaking, Kitchen Mobility, Laundry, Pat ient Education, Safety Awareness, Splinting - Positioning, Transfers(Toilet, Tub, Shower), and Wheel Chair Management Need for long term care pharmacist - to improve, our occupation therapists will perform initial evaluation of pt's status upon admission and devise an individualized program for Caregiver Training Cognitive deficits - to improve, our occupation therapists will perform initial evaluation of pt's s tatus upon admission and devise an individualized program for Cognition - orientation - Balance for Weakness - Bed mobility for ADL deficits - Lymphedema Therapy for Edema MEDICAL PLAN: - Diet Type Start Regular - Diet - Liquid Texture Start Regular - Tube Feed Start N/A - Other See attached MAR (Medication Administration Record) - Diet - Solid Texture Regular - Shower shower DISCHARGE PLAN: - Estimated Length of Stay (days) 14. - Consensus on plan Discharge plan has been discussed with primary caregiver. Patient/Family is in agreement with the melly n. Primary caregiver is in agreement with the plan. - Patient/Family Goals Return home with assistance. - Planned Living Setting Upon Discharge Home, to live with Family/Relatives. Transitional Living. SIGNATURE PANEL: (CDT)
--- NOTE | 2020-01-20 17:49 | PAPE ---
PATIENT: [facility] MR# [id number] REFERRING DOCTOR Dr POWERS PRIMARY CARE PHYSICIAN Dr Garay EVALUATION DATE AND TIME 01/20/2020 17:46 (CDT) NAME JUAN DIEGO OLIVEIRA DATE OF 1945 AGE 74 PHONE SSN# [id number] GENDER male EVALUATING PHYSICIAN Dr. Eduardo Bajwa M.D. ADMISSION DIAGNOSIS: CABG Bilateral foot drop ONSET DATE 01/19/2020 POST-ADMISSION FUNCTIONAL/MEDICAL STATUS: - Bladder Same accident frequency: Ind - No accidents in the past 7 days - Bowel Same accident frequency: Ind - No accidents in the past 7 days - Walking Same score based on distance walked: 0(N/A) - Wheelchair Same score based on distance traveled: 1(<=50ft) STATUS CHANGE EVALUATION: No change in Functional or Medical Status is identified compared with Pre-Admission screening. PATIENT NEEDS CLOSE MEDICAL SUPERVISION BY A REHABILITATION PHYSICIAN FOR: Coordination of Treatment Team Post-Op Complications Wound Care PATIENT REQUIRES 24X7 REHAB NURSING FOR MEDICAL AND FUNCTIONAL MGT. OF THE FOLLOWING DEFICITS: Disease Management Medication Management Patient/Family Education Providing Safe Environment Skin Integrity PATIENT REQUIRES INTENSIVE, COORDINATED INTERDISCIPLINARY APPROACH TO REHAB: Arranging Home Equipment/Services Discharge Planning Family Intervention/Training Shuttlecock Feather Trimmer/Case Management LIST OF IDENTIFIED AND POTENTIAL PROBLEMS: Alteration in leisure activities Bladder, Incontinence Bowel, Incontinence Infection, Actual or Potential Mobility Impaired Pain, Alteration in Comfort Self Care Deficit Skin Integrity, Actual or Potential Urinary Tract Infection (UTI), Actual or Potential PATIENT COULD BE AT RISK FOR COMPLICATIONS FROM ADVERSE MEDICAL CONDITIONS DUE TO HIS/HER COMORBIDITI ES AND THE RIGORS OF THE INTENSIVE REHABILLITATION PROGRAM. METHODS OR INTERVENTIONS TO AVOID COMPLIC ATIONS INCLUDE: - Bleeding Assess lab values and manage abnormalities. Nursing to teach precautions for anti-coagulation therapy . Wound to be assessed every shift. - Infection Clinical staff to assess and manage the signs and symptoms of infection including fever, redness, war mth, etc. - Urinary Tract Infection - Falls Patient will be evaluated for Fall Precautions and will be placed on Fall Precautions as indicated pe r protocol. - Skin Breakdown Nursing will assess skin daily using assessment tool and will place on Skin Breakdown Precautions as indicated per protocol. - Pain Clinical staff may employ non-medication methods such as massage, distraction, decrease stimulus, etc . as needed. Clinical staff will assess patient's pain level every shift per protocol to assess and e nsure pain management effectiveness. Medications will be given and the pain level re-assessed. PRELIMINARY PLAN OF CARE: - Physical Therapy Patient needs Physical Therapy for a daily minimum of 1.5 hours at least 5 out of 7 days, to improve: Mobility, Strengthening, Transfers, Stretching, ROM, Endurance, Ability to manage stairs, Gait, and Balance. - Speech Therapy Patient needs Speech Therapy for a daily minimum of 0.5 hours at least 5 out of 7 days, to improve: S wallowing, Cognition, Language Skills, and Compensatory Strategies. - Rehabilitation Nursing Patient requires 24x7 Rehabilitation Nursing for: Pain Issues, Identifying and preventing risk factor s, Monitoring and reporting current medical conditions, Assisting with ambulation and transfer, Donnie ting with all ADL-s, Teaching patients about disease process and medications, Family teaching, Provid ing safe environment, Bowel and Bladder Issues, Skin Integrity, and Medication Management. Patient needs Shuttlecock Feather Trimmer and/or Case Management for: Discharge Planning, Arranging Home Equipmen t or Services, and Family Interventions. - Dietary and Nutrition Services Patient needs Dietary and Nutrition Services for: Adequate Nutrition, Nutritional Supplements, and Nu tritional Education. - Occupational Therapy Patient needs Occupational Therapy for a daily minimum of 1.5 hours at least 5 out of 7 days, to impr ove Activities of Daily Living, including: Eating, Grooming, Bathing, Dressing, Toileting, Toilet Tra nsfers, Community Reintegration, Higher functional activities, Adaptive Equipment, Splinting, Househo ld Tasks, and Other activities as determined. QI SCORES: - Self-Care A. Eating 06-Independent B. Oral hygiene 01-Dependent C. Toileting hygiene 02-Substantial/maximal assistance E. Shower/bathe self 02-Substantial/maximal assistance F. Upper body dressing 03-Partial/moderate assistance G. Lower body dressing 88-Not attempted due to medical condition or safety concerns H. Putting on/taking off footwear 03-Partial/moderate assistance - Mobility A. Roll left and right 04-Supervision or touching assistance B. Sit to lying 03-Partial/moderate assistance C. Lying to sitting on side of bed 03-Partial/moderate assistance D. Sit to stand 02-Substantial/maximal assistance E. Chair/ruz-ky-vskth transfer 02-Substantial/maximal assistance F. Toilet transfer 02-Substantial/maximal assistance G. Car transfer 88-Not attempted due to medical condition or safety concerns I. Walk 10 feet 88-Not attempted due to medical condition or safety concerns J. Walk 50 feet with two turns 88-Not attempted due to medical condition or safety concerns K. Walk 150 feet 88-Not attempted due to medical condition or safety concerns L. Walking 10 feet on uneven surfaces 88-Not attempted due to medical condition or safety concerns M. 1 step (curb) 88-Not attempted due to medical condition or safety concerns N. 4 steps 88-Not attempted due to medical condition or safety concerns O. 12 steps 88-Not attempted due to medical condition or safety concerns P. Picking up object 06-Independent R. Wheel 50 feet with two turns 88-Not attempted due to medical condition or safety concerns S. Wheel 150 feet 88-Not attempted due to medical condition or safety concerns - Bladder and Bowel Bladder continence 0-Always continent Bowel continence 0-Always continent - Endurance Fair - Balance Poor - Safety Awareness Fair POTENTIAL FUNCTIONAL GOALS FOR PATIENT TO ACHIEVE BY DISCHARGE: - Safety Precaution Patient will remain free from falls or injury at time of discharge. - Bed Mobility Patient will perform bed mobility at 4-Arina level of assistance. - Transfers Patient will complete transfers from bed to chair at 4-Arina level of assistance. - Mobility Patient will ambulate 150 ft with 4-Arina level of assistance with RW. PATIENT REHAB POTENTIAL Stephenie OLIVEIRA is able and expected to receive 3 hours of individualized therapy daily on at least 5 of e very 7 days Stephenie HORNs prognosis for significant practical improvement within a reasonable period of time appea rs Fair Expected level of measurable improvement will be of a practical value to Stephenie OLIVEIRA's functional capa city or adaptations to impairments Has a viable Discharge Plan Medically appropriate; condition is sufficiently stable to participate in intensive rehab program DISCHARGE PLAN: - Estimated Length of Stay (days) 14. - Consensus on plan Discharge plan has been discussed with primary caregiver. Patient/Family is in agreement with the melly n. Primary caregiver is in agreement with the plan. - Patient/Family Goals Return home with assistance. - Planned Living Setting Upon Discharge Home, to live with Family/Relatives. Transitional Living. CONCLUSION ON REHABILITATION NECESSITY: I have evaluated patient's pre-admission functional status and, comparing it to the patient's post-ad mission functional status now, I conclude that the pre-admission assessment was accurate. Patient's c ondition on admission supports the medical necessity of admission to IR[facility]. It is safe to proceed with patient's therapy program. SIGNATURE PANEL: (CDT)
[2020-01-20] MEDS: ATORVASTATIN 20 MG TAB PO SCH (20:11)
[2020-01-21 07:07] VITALS: TEMP 98
[2020-01-21] MEDS: INSULIN -REGULAR HUMAN 50 UNIT/0.5 ML ML SQ SCH ×3 (07:07→16:30)
[2020-01-21] MEDS: HEPARIN 5000 UNIT/ML 1 ML VIAL SQ SCH (07:30)
[2020-01-21] MEDS ORDERED: FERROUS SULFATE 325 MG TAB PO SCH (08:00)
[2020-01-21] MEDS: lisinopriL 20 MG TAB PO SCH (08:00)
[2020-01-21] MEDS ORDERED: FE SULF/FA/VIT B COMP & C TAB PO SCH (08:00)
[2020-01-21 08:10] VITALS: BMI 19.8
[2020-01-21] MEDS: FINASTERIDE 5 MG TAB PO SCH (08:57)
[2020-01-21] MEDS: ASPIRIN EC 81 MG TAB PO SCH (08:57)
[2020-01-21] MEDS: FENOFIBRATE 160 MG TAB PO SCH (08:57)
[2020-01-21] MEDS: TAMSULOSIN 0.4 MG SR CAP PO SCH (08:58)
[2020-01-21] MEDS: TRAMADOL HCL 50 MG TAB PO PRN ×2 (08:58→14:17)
[2020-01-21] MEDS: glipiZIDE 5 MG TAB PO SCH ×2 (08:58→17:23)
[2020-01-21] MEDS: CLOPIDOGREL 75 MG TABLET PO SCH (08:58)
[2020-01-21] MEDS: METFORMIN HCL 500 MG TAB PO SCH ×2 (08:59→17:24)
[2020-01-21] MEDS: PANTOPRAZOLE 40MG TABLET PO SCH (08:59)
[2020-01-21] MEDS: FUROSEMIDE 40 MG TABLET PO SCH (08:59)
[2020-01-21] MEDS: gemfibroziL 600 MG TAB PO SCH (09:00)
[2020-01-21] MEDS: INSULIN GLARGINE 100 UNITS/ML SQ SCH (09:01)
[2020-01-21] MEDS: NYSTATIN OINT 15 GM TUBE TOP SCH (09:02)
[2020-01-21 09:10] VITALS: O2SAT 94
--- NOTE | 2020-01-21 09:53 | P.RH.PN ---
Estimated Length of Stay: 10 Expected Discharge Date: 01/28/20 Discharge Disposition Plan: Home Family Support: Yes [facility] Goal: Mobility, Transfers, Self Care Vital Signs: Last Vital Signs Temp 98 F 01/21/20 07:06 Pulse 77 01/21/20 08:59 Resp 16 01/21/20 08:58 BP 121/63 01/21/20 08:59 Pulse Ox 93 01/21/20 08:58 Laboratory: Laboratory Last Values WBC 6.9 K/uL (4.3-10.9) 01/20/20 05:35 RBC 2.65 M/uL (4.33-5.43) L 01/20/20 05:35 Hgb 8.0 g/dL (13.6-17.9) L 01/20/20 05:35 Hct 24.3 % (39.6-49.0) L 01/20/20 05:35 MCV 91.7 fL (80-100) 01/20/20 05:35 MCH 30.0 pg (27.0-35.0) 01/20/20 05:35 MCHC 32.7 g/dL (32.0-36.0) 01/20/20 05:35 RDW 16.1 % (12.1-15.2) H 01/20/20 05:35 Plt Count 361 K/uL (152-406) 01/20/20 05:35 MPV 6.8 fL (7.6-11.3) L 01/20/20 05:35 Neutrophils % 64.7 % (41.7-73.7) 01/20/20 05:35 Lymphocytes % 19.1 % (15.3-44.8) 01/20/20 05:35 Monocytes % 11.1 % (3.3-12.3) 01/20/20 05:35 Eosinophils % 4.1 % (0-4.4) 01/20/20 05:35 Basophils % 1.0 % (0-1.3) 01/20/20 05:35 Absolute Neutrophils 4.5 K/uL (1.8-8.0) 01/20/20 05:35 Absolute Lymphocytes 1.3 K/uL (0.7-4.9) 01/20/20 05:35 Absolute Monocytes 0.8 K/uL (0.1-1.3) 01/20/20 05:35 Absolute Eosinophils 0.3 K/uL (0-0.5) 01/20/20 05:35 Absolute Basophils 0.1 K/uL (0-0.5) 01/20/20 05:35 Sodium 146 mmol/L (136-145) H 01/20/20 05:35 Potassium 3.8 mmol/L (3.5-5.1) 01/20/20 05:35 Chloride 108 mmol/L (98-107) H 01/20/20 05:35 Carbon Dioxide 30 mmol/L (21-32) 01/20/20 05:35 BUN 41 mg/dL (7-18) H 01/20/20 05:35 Creatinine 1.27 mg/dL (0.55-1.3) 01/20/20 05:35 Estimated GFR 56 mL/min (=/>90) L 01/20/20 05:35 Glucose 101 mg/dL (74-106) 01/20/20 05:35 POC Glucose 84 mg/dl (65-120) 01/21/20 06:41 Calcium 8.2 mg/dL (8.5-10.1) L 01/20/20 05:35 Magnesium 2.3 mg/dL (1.8-2.4) 01/20/20 05:35 Albumin 2.3 g/dL (3.4-5.0) L 01/20/20 05:35 Prealbumin 9.3 mg/dL (20-40) L 01/20/20 05:35 Urine Color Yellow 01/19/20 16:25 Urine Appearance Clear 01/19/20 16:25 Urine pH 6.0 (5.0-7.0) 01/19/20 16:25 Ur Specific [place] 1.010 (1.005-1.030) 01/19/20 16:25 Glucose (UA)(Auto) Negative (NEG) 01/19/20 16:25 Urine Ketones Negative (NEG) 01/19/20 16:25 Urine Blood Negative (NEG) 01/19/20 16:25 Urine Nitrite Negative (NEG) 01/19/20 16:25 Urine Bilirubin Negative (NEG) 01/19/20 16:25 Urine Urobilinogen 1.0 mg/dL (0.2-1.0) 01/19/20 16:25 Ur Leukocyte Esterase Negative (NEG) 01/19/20 16:25 Urine RBC <5 /HPF (NONE SEEN) 01/19/20 16:25 Urine WBC <5 /HPF (<5) 01/19/20 16:25 Ur Squamous Epith Cells 5-10 /HPF (NONE SEEN) H 01/19/20 16:25 Urine Bacteria <20 /HPF (NONE SEEN) 01/19/20 16:25 Urine Culture Reflexed Not needed 01/19/20 16:25 Urine Total Protein Negative (NEG) 01/19/20 16:25 Weight: 127 lb Wound Present: Yes Closed Surgical Incision Present: Yes Negative Pressure Wound Therapy Present: No Physician Update: His labs reviewed and are stable. He is maximum assistance to transfer. He only stands for about 10 to 15 seconds. His has marked bilateral foot drop. He may required a prolonged period of therapy to become safe on his own. Functional Improvement: pt presents with severe generalized weakness. pt exhibits poor balance in standing and is unable to come to stand without significant assist. pt is unable to effectively ambulate at this time due to bilateral foot drop and lack of essential balance. PT services are necessary to address the above mentioned impairments and functional limitations. Summary: Patient's care plan and snf goals have been reviewed and revised as necessary. Please see the Rehabilitation Signature page for all necessary signatures.
[2020-01-21] MEDS: carvediloL 6.25 MG TAB PO SCH (12:06)
--- NOTE | 2020-01-21 12:48 | RAD REPORT ---
EXAM DESCRIPTION: CT - Head Brain Wo Cont - 01/21/2020 12:37 pm CLINICAL HISTORY: increase weakness Headache, drowsiness, CVA symptomology COMPARISON: No comparisons TECHNIQUE: All CT scans are performed using dose optimization technique as appropriate and may inclu de automated exposure control or mA/KV adjustment according to patient size. FINDINGS: No intracranial hemorrhage, hydrocephalus or extra-axial fluid collection.Mild generalized brain atrophy.No areas of brain edema or evidence of midline shift. The paranasal sinuses and mastoids are clear. The calvarium is intact. IMPRESSION: No acute intracranial abnormality.
--- NOTE | 2020-01-21 13:57 | FAST ---
ENCOUNTER DATE AND TIME: 01/21/2020 08:00 (CDT) NAME JUAN DIEGO OLIVEIRA DATE OF : 1945 DATE OF ADMISSION: 01/19/2020 15:43 (CDT) PHONE: AGE: 74 SSN# [id number] GENDER: Male ENCOUNTER PHYSICIAN: Dr. Eduardo Bajwa M.D. ADMISSION DIAGNOSIS: - Cardiac - Cardiac Disorders () CABG. Bilateral foot drop. EATING: Not assessed/no information CODE: - ORAL HYGIENE: Not assessed/no information CODE: - TOILETING HYGIENE: Not assessed/no information CODE: - BATHING: Not assessed/no information CODE: - DRESSING - UPPER BODY: Not assessed/no information CODE: - DRESSING - LOWER BODY: Not assessed/no information CODE: - PUTTING ON/TAKING OFF FOOTWEAR: FOOTWEAR - STEP 1: Does the patient complete the activity by him/herself with no assistance (physical, verbal/nonverbal cueing, setup/clean-up)? No. FOOTWEAR - STEP 2: Does the patient need only setup/clean-up assistance from one helper? No. FOOTWEAR - STEP 3: Does the patient need only verbal/nonverbal cueing or touching/steadying/contact guard assistance fro m one helper? Yes. 1. ADMISSION PERFORMANCE: Supervision or touching assistance CODE: 04 DOES THE PATIENT USE A WHEELCHAIR/SCOOTER? CODE: EXPR INDICATE THE TYPE OF WHEELCHAIR/SCOOTER USED: CODE: EXPR INDICATE THE TYPE OF WHEELCHAIR/SCOOTER USED: CODE: EXPR BLADDER AND BOWEL: CODE: EXPR CODE: EXPR SIGNATURE PANEL: The following modified sections: 1. Admission Performance, 1. Admission Performance w ere [electronically] signed by Kari Farah OT on FriJan 21 2020 13:56:45 GMT-0500 (Cent [place] Daylight Time)
[2020-01-21] MEDS ORDERED: lisinopriL 20 MG TAB PO SCH (14:04)
[2020-01-21 14:23] VITALS: BP 122/68
[2020-01-21] MEDS ORDERED: DOCUSATE NA 100 MG CAP PO PRN (16:32)
[2020-01-21] MEDS ORDERED: NA CHLORIDE 0.9% 1,000 ML ONE (17:59)
--- NOTE | 2020-01-21 18:17 | RAD REPORT ---
EXAM DESCRIPTION: RAD - Chest Single View - 01/21/2020 6:11 pm CLINICAL HISTORY: cough COMPARISON: August 2018 TECHNIQUE: AP portable chest image was obtained 01/21/2020 6:11 pm . FINDINGS: Lung volumes are low. The low lung volumes, portable technique and large body habitus limi t the examination. Interstitial pattern is prominent but not substantially different. A focal mass or consolidation is not seen. Left base assessment is limited. Left costophrenic angle blunting is prob ably the affects of body habitus and portable technique. Sternotomy wires have been placed since the prior study. Cardiomediastinal silhouette accentuated by body habitus and shallow inspiration. Perica rdial fat pads are present. No measurable pleural effusion and no pneumothorax. No acute bony abnorma lity seen. No acute aortic findings suspected. IMPRESSION: Exam is limited as detailed, particularly the left base. No significant failure or volume overload. No significant infiltrative process evident.
[2020-01-21 18:57] LABS: Potassium 3.9 mmol/L (3.5-5.1)
[2020-01-21 19:06] LABS: Absolute Lymphocytes (CBC) 1.6 K/uL (0.7-4.9); Basophils % 0.8 % (0-1.3); Hematocrit 24.4 % (39.6-49.0); Lymphocytes % 17.8 % (15.3-44.8); MPV 6.9 fL (7.6-11.3); RBC Red Blood Cell Count 2.63 M/uL (4.33-5.43)
[2020-01-21] MEDS ORDERED: PROMOD 30 ML DOSE PO SCH (20:00)
[2020-01-21] MEDS ORDERED: DOCUSATE NA 100 MG CAP PO SCH (20:00)
[2020-01-21 21:04] LABS: Anisocytosis 1+; Blood Morphology Comment NOTED (NOT SEEN); Platelet Estimate ADEQ; Polychromasia 2+; Urine White Blood Cell Casts OK
--- NOTE | 2020-01-24 13:06 | R.PREADM ---
SCREENING DATE AND TIME 01/24/2020 12:08 (CDT) ANTICIPATED REHAB ADMISSION DATE 01/26/[address] [facility] REFERRAL DATE AND TIME 01/24/2020 12:08 (CDT) REFERRAL ROOM# 211 ACUTE ADMIT DATE 01/21/2020 HOSPITALIZED IN LAST 60 DAYS? yes Previous Rehabilitation(s): Y. 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 Jordan REHAB FACILITY [facility] CLINICAL LIAISON Brad Bergman PHYSICIAN REVIEWER Dr. Eduardo Bajwa M.D. MR# [id number] NAME JUAN DIEGO OLIVEIRA ADDRESS [address] [place] [address] PHONE [facility] [id number] DATE OF 1945 AGE 74 SSN# [id number] GENDER male MARITAL STATUS RACE white PREF. LANGUAGE (IF NON-MALTESE) . Supervisor Asphalt Paving is needed ADMIT FROM 02 - [facility] PRE-HOSPITAL LIVING SETTING 01 - Home (private home/apt. board/care, assisted living, prison, transitional living) HOME TYPE AND DETAILS Type of home: single family house # of levels in the residence: 1 # of steps within the residence: 0 # of steps to enter the residence: 0 PRE-HOSPITAL LIVING WITH Family/Relatives FAMILY SUPPORT Yes PRIMARY FAMILY CONTACT NAME Pura George PRIMARY FAMILY CONTACT PHONE [phone] PHONE PRIMARY FAMILY CONTACT ON ADM.? no IS PRIMARY FAMILY CONTACT AUTH. REP.? no 1ST EMERGENCY CONTACT Pura George 1ST CONTACT PHONE [phone] PHONE 1ST CONTACT ON ADM. no IS 1ST CONTACT AUTH. REP.? no PHONE 2ND CONTACT ON ADM.? no PATIENT EMPLOYMENT STATUS Retired (for age) PATIENT EMPLOYER No Employer PAYOR INFORMATION: 1ST PAYOR NAME Medicare 1ST PAYOR PHONE 1ST PAYOR UPDATE DUE 01/19/2020 1ST PAYOR INJURY/ILLNESS DUE TO ACCIDENT? No ANOTHER DEMOCRAT RESPONSIBLE? No PRIMARY REHAB/ACUTE DIAGNOSIS: CABG ONSET DATE 01/21/2020 REHAB IMPAIRMENT CATEGORY (BONNY): 00 No BONNY does NOT meet 60% rule AFFECTED EXTREMITIES: Patient was admitted to IRF on Thursday 01/18 and had episode of low HR on Saturday 01/20. He was moved to ICU for stabilization. Patient was moved to acute floor out of ICU and has stabilized and is now ready to move back to IRF. PRIMARY DIAGNOSIS-RELATED SURGERIES: BLADDER BIOPSY CHOLECYSTECTOMY TONSILLECTOMY SUMMARY OF ACUTE HOSPITALIZATION: Pt. is a 74 yo Right-handed white male. On 01/21/2020 [address] to [facility] with diagnosis CABG. His impairment category is Cardiac 09 - Cardiac Disorders (09). Pre-morbidly, Pt. was independent/mod-I in Endurance, Self-Care, Locomotion, and Transfers Control; a nd he had good Safety Awareness, Balance, Communication, Endurance, Social Cognition, and Sphincter C ontrol. Currently, he has deficits of Endurance, Self-Care, Transfers Control, Safety Awareness, and Locomoti on. Pt. is now referred to [facility] for acute in-patient rehabilitation in order to maximize patient's functional independence in activities of daily living, strength, ROM, and mobi lity. Patient has realistic goal of being discharged at assistance level 6-Steffany to reside at Home with Fam amrik/Relatives. PAST MEDICAL HISTORY CANCER DIABETES MELLITUS HYPERTENSION PAST SURGICAL HISTORY: BLADDER BIOPSY CHOLECYSTECTOMY TONSILLECTOMY MEDICATION ALLERGIES: CIPROFLOXACIN PEN (PENICILLINS) ENVIRONMENTAL ALLERGIES: - Substance Allergies None Known - Other Allergies None Known CODE STATUS: Full code WEIGHT/HEIGHT/BMI: WEIGHT 267 lbs HEIGHT 5' 7" BMI 41.8 DIET: - Diet Type Regular - Diet - Solid Texture Regular - Diet - Liquid Texture Regular - Tube Feed N/A SKIN DIAGRAM: Incision on Chest; extent - small; stage - NS(Not Stageable). Treatment - Per Physician's Orders. REVIEW OF SYSTEMS: - Gen Alert and awake Sitting in chair No apparent distress Oriented to: person, time, and place - Vital Signs Vital signs stable, afebrile - CVS RRR VITAL SIGNS Temperature: 97 F SBP/DBP: 169/75 Pulse: 93 Resp: 18 Vital signs stable, afebrile MEDICATIONS/TREATMENT: Other- See attached MAR (Medication Administration Record). CURRENT SPHINCTER CONTROL: Pre-hospital bladder status: continent # of bladder accidents in the last 7 days prior to screenin Pre-hospital bowel status: continent # of bowel accidents in the last 7 days prior to screenin Last Bowel Movement Date: 01/23/2020 CURRENT LOCOMOTION STATUS: distance walked 3 feet DETAILED CURRENT FUNCTIONAL STATUS: - Bladder accident frequency: Ind - No accidents in the past 7 days - Bowel accident frequency: Ind - No accidents in the past 7 days - Walking score based on distance walked: 0(N/A) - Wheelchair score based on distance traveled: 1(<=50ft) QI SCORES: - Self-Care A. Eating 06-Independent B. Oral hygiene 01-Dependent C. Toileting hygiene 02-Substantial/maximal assistance E. Shower/bathe self 02-Substantial/maximal assistance F. Upper body dressing 03-Partial/moderate assistance G. Lower body dressing 88-Not attempted due to medical condition or safety concerns H. Putting on/taking off footwear 03-Partial/moderate assistance - Mobility A. Roll left and right 04-Supervision or touching assistance B. Sit to lying 03-Partial/moderate assistance C. Lying to sitting on side of bed 03-Partial/moderate assistance D. Sit to stand 02-Substantial/maximal assistance E. Chair/dgy-il-tlhlv transfer 02-Substantial/maximal assistance F. Toilet transfer 02-Substantial/maximal assistance G. Car transfer 88-Not attempted due to medical condition or safety concerns I. Walk 10 feet 88-Not attempted due to medical condition or safety concerns J. Walk 50 feet with two turns 88-Not attempted due to medical condition or safety concerns K. Walk 150 feet 88-Not attempted due to medical condition or safety concerns L. Walking 10 feet on uneven surfaces 88-Not attempted due to medical condition or safety concerns M. 1 step (curb) 88-Not attempted due to medical condition or safety concerns N. 4 steps 88-Not attempted due to medical condition or safety concerns O. 12 steps 88-Not attempted due to medical condition or safety concerns P. Picking up object 06-Independent R. Wheel 50 feet with two turns 88-Not attempted due to medical condition or safety concerns S. Wheel 150 feet 88-Not attempted due to medical condition or safety concerns - Bladder and Bowel Bladder continence 0-Always continent Bowel continence 0-Always continent - Endurance Fair - Balance Poor - Safety Awareness Fair CURRENT [facility]. DEFICITS: Mobility, Endurance, Balance, Safety Awareness, and Self-Care CURRENT / PREVIOUS ASSISTIVE DEVICES: 3-in-1 Commode [facility] Hospital Bed Oxygen Rolling Walker Shower Chair Tub Bench Wheelchair HISTORY OF FALLS. HAS THE PATIENT HAD TWO OR MORE FALLS IN THE PAST YEAR OR ANY FALL WITH INJURY IN T HE PAST YEAR?: No PRIOR SURGERY. DID THE PATIENT HAVE MAJOR SURGERY DURING THE 100 DAYS PRIOR TO ADMISSION?: Yes THERAPY NOTES FROM ACUTE CARE: Attached. SPECIAL NEEDS: - Safety Concerns Skin breakdown precautions needed due to skin breakdown risk PATIENT NEEDS ACTIVE AND ONGOING THERAPEUTIC INTERVENTION OF MULTIPLE THERAPY DISCIPLINES, INCLUDING: - Dietary and Nutrition Adequate Nutrition. Nutritional Education. Nutritional Supplements. PATIENT NEEDS CLOSE MEDICAL SUPERVISION BY A REHABILITATION PHYSICIAN FOR: Coordination of Treatment Team Post-Op Complications Wound Care PATIENT REQUIRES 24X7 REHAB NURSING FOR MEDICAL AND FUNCTIONAL MGT. OF THE FOLLOWING DEFICITS: Disease Management Medication Management Patient/Family Education Providing Safe Environment Skin Integrity PATIENT REQUIRES INTENSIVE, COORDINATED INTERDISCIPLINARY APPROACH TO REHAB: Arranging Home Equipment/Services Discharge Planning Family Intervention/Training Email Designer/Case Management PATIENT REHAB POTENTIAL: Stephenie OLIVEIRA is able and expected to receive 3 hours of individualized therapy daily on at least 5 of e very 7 days Stephenie OLIVEIRA'mariam prognosis for significant practical improvement within a reasonable period of time appea rs Good Expected level of measurable improvement will be of a practical value to Stephenie OLIVEIRA's functional capa city or adaptations to impairments Has a viable Discharge Plan Medically appropriate; condition is sufficiently stable to participate in intensive rehab program DISCHARGE PLAN: - Estimated Length of Stay (days) 14. - Consensus on plan Discharge plan has been discussed with primary caregiver. Patient/Family is in agreement with the melly n. Primary caregiver is in agreement with the plan. - Patient/Family Goals Return home with assistance. - Planned Living Setting Upon Discharge Home, to live with Family/Relatives. RECOMMENDED CARE LEVEL: IRF RECOMMENDATION DETAILS: Recommended Admission to Comprehensive Rehabilitation Program to Increase Functional Comal SCREENER'S COMPLETENESS CONFIRMATION: - Screening Confirmation The patient data collection on this preadmission screening form is finished PHYSICIANS REVIEW AND ADMISSION DETERMINATION Admit - Based on my review of the Pre-Admission Screening results, in my medical judgment and experie nce, I concur with the findings and recommend admission to [facility], as this patient requires an IRF level of care. SIGNATURE PANEL: Clinical Liaison - [electronically] signed by Simi Alonzo, Auto Transmission Specialist on 01/24/2020 at 12:24 (C DT) Clinical Liaison - [electronically] signed by John Bergman PT on 01/24/2020 at 12:35 (CDT) Physician Reviewer - [electronically] signed by Dr. Eduardo aBjwa M.D. on 01/24/2020 at 13:05 (CDT )
== END 2020-01-21 18:20 | disposition short-term general hospital (02) | DRG 303 ==
LOC: 5TH 15:48
PROVIDERS: ADMIT Psychiatry & Neurology Neurology with Special Qualifications in Child Neurology; ATTEND Psychiatry & Neurology Neurology with Special Qualifications in Child Neurology
DX: I25.10 Atherosclerotic heart disease of native coronary artery without angina pectoris (principal); R53.1 Weakness; I95.9 Hypotension, unspecified; I10 Essential (primary) hypertension; E11.9 Type 2 diabetes mellitus without complications; Z95.1 Presence of aortocoronary bypass graft; Z85.9 Personal history of malignant neoplasm, unspecified; Z48.812 Encounter for surgical aftercare following surgery on the circulatory system
CPT/HCPCS: 36415; 70450; 71045; 80048; 81001; 82040; 82947; 83735; 84134; 85025; 87086; 87088; 97110; 97112; 97116; 97161; 97530; J1644; J1815; J7030

== ENCOUNTER 2020-01-21 18:20 | Inpatient (IN) | payer OTHER, MEDICARE ==
--- OUTSIDE RECORDS SUMMARY | 2020-01-21 18:43 | XMS REPORT ---
:1945 [facility] Address [address] [place] [address] Dr. Bell [address] [place] [id number] Care Team Providers Name Role Phone Unavailable Unavailable Unavailable Problems This patient has no known problems. Allergies, Adverse Reactions, Alerts This patient has no known allergies or adverse reactions. Medications This patient has no known medications.
--- OUTSIDE RECORDS SUMMARY | 2020-01-21 18:53 | XMS REPORT | Summary of Care ---
:1945 Author Organization [facility] Address [address] [place] [address] Care Team Providers Name Role Phone Franklyn Garay Primary Care Provider Encounter Details Date Type Department Care Team Description 01/10/2020 Orders Only [facility] Doctor Unassigned, No [address] [facility] [place] [address] [address] [place] [address] Allergies Active Allergy Reactions Severity Noted Date Comments Ciprofloxacin Rash 09/17/2019 Penicillins Rash 09/17/2019 documented as of this encounter (statuses as of 01/20/2020) Medications Medication Sig Dispensed Refills Start Date [...] daily with without complication, meals. unspecified whether bed bug exterminator insulin use, Coronary arteriosclerosis in [place] artery Additional information Patient taking differently: 1,000 mg Oral BID MEALS, Reported on 01/07/2020 11: 27 AM atorvastatin 20 mg Take 1 tablet by 30 tablet 0 01/19/2020 Active tabletIndications: Coronary mouth at bedtime. artery disease involving coronary bypass graft of [place] heart with angina pectoris carvediloL 6.25 mg Take 1 tablet by 60 tablet 0 01/19/2020 Active tabletIndications: Coronary mouth 2 (two) artery disease involving times daily with coronary bypass graft of meals. [place] heart with angina pectoris insulin glargine 100 unit/mL inject 40 Units 10 mL 1 01/19/2020 Active injectionIndications: under the skin 2 Coronary artery disease (two) times involving coronary bypass daily. graft of [place] heart with angina pectoris acetaminophen 325 mg Take 2 tablets by 60 tablet 0 01/19/2020 Active tabletIndications: Coronary mouth every 6 1 artery disease involving (six) hours as coronary bypass graft of needed for Pain [place] heart with angina (scale 1-3). pectoris clopidogreL 75 mg Take 1 tablet by 90 tablet 0 01/20/2020 Active tabletIndications: Coronary mouth daily. artery disease involving coronary bypass graft of [place] heart with angina pectoris fenofibrate micronized 134 Take 1 capsule by 30 capsule 0 01/19/2020 Active mg capsuleIndications: mouth daily. Coronary artery disease involving coronary bypass graft of [place] heart with angina pectoris furosemide 40 mg Take 1 tablet by 60 tablet 0 01/19/2020 Active tabletIndications: Coronary mouth every artery disease involving morning and coronary bypass graft of evening. [place] heart with angina pectoris nystatin 100,000 unit/gram Apply to area(s) 15 g 0 01/19/2020 Active ointmentIndications: 2 (two) times Coronary artery disease daily. involving coronary bypass graft of [place] heart with angina pectoris insulin regular human Soln inject under the 0 01/19/2020 Active injection skin before meals and at bedtime. lisinopril 20 mg Take 1 tablet by 30 tablet 0 01/19/2020 Active tabletIndications: Coronary mouth daily. artery disease involving coronary bypass graft of [place] heart with angina pectoris documented as of this encounter (statuses as of 01/20/2020) Active Problems Problem Noted Date Acute on chronic diastolic congestive heart failure 01/14/2020 Morbid obesity 01/13/2020 S/P AVR 01/12/2020 S/P CABG (coronary artery bypass graft) 01/12/2020 Nonrheumatic aortic valve stenosis 01/12/2020 Dyslipidemia 01/12/2020 Essential hypertension 01/12/2020 Other emphysema 01/12/2020 CAD (coronary artery disease) 01/10/2020 Coronary arteriosclerosis in [place] artery 01/05/2020 documented as of this encounter (statuses as of 01/20/2020) Immunizations Name Administration Dates Next Due Influenza [...] 02/16/2020 Office Visit Cardiology Chary Martinez MD [address] [place] [address] [place] [id number] 04/18/2020 Office Visit Cardiology Chary Martinez MD [address] [facility] [address] [place] [phone] Health Maintenance Due Date Last Done Comments HEPATITIS C (HCV) SCREEN 1945 URINE MICROALBUMIN 1955 DTaP,Tdap,and Td Vaccines (1 - 1957 Tdap) Zoster Recombinant Vaccine 1996 (SHINGRIX) (1 of 2) Medicare Wellness Visit 2011 PNEUMOCOCCAL VACCINES 65+ (1 of 2 2011 - PCV13) EYE EXAM 07/04/2020 07/04/2019 HgA1C 07/07/2020 01/05/2020, 11/25/2019 FOOT EXAM 11/24/2020 11/24/2019 LDL-C 01/12/2021 01/13/2020, 11/25/2019 CREATININE (SERUM) 01/18/2021 01/19/2020, 01/18/2020, 01/17/2020, Additional history exists COLONOSCOPY 11/03/2027 11/03/2017 INFLUENZA VACCINE Completed 08/03/2019 documented as of this encounter Implants Implanted Type Area Hemotherapist Device Shelf Model / Identifier Expiration Serial / Date Lot Kaitlin Reed Pericardial Bioprosthesis - Aortic Valve 25mm [employer] Ref#[id number] - [id number] VALVE N/A: Heart [employer] Life 08/21/2023 [id number] / Implanted: Qty: 1 on 01/11/2020 by Vazquez Lopez MD at [facility] ([facility]) Science [id number] / [id number] Wire WIRE Upper: Mandible Ptfe [place] 2.5cmx15.2cm Bard Ref#[id number] - [id number] N/A: Heart Bard [id number] / Implanted: Qty: 1 on 01/11/2020 by Vazquez Lopez MD at [facility] ([facility]) 0 / 0 documented as of this encounter Procedures Procedure Name Priority Date/Time Associated Diagnosis Comments HOSPITAL ADMISSION Routine 01/10/2020 12:01 AM CDT documented in this encounter Results Not on filedocumented in this encounter Insurance Payer Benefit Plan / Subscriber ID Effective Phone Address Type Group Dates MEDICARE MEDICARE PART xxxxxxxxxxx 2011-Pr [phone] [address] Medicare A & B esent [id number] [place] [id number] [facility] [id number] 2018-Pre [address] Medicare HEALTHCARE HEALTHCARE sent [id number] Supplement MEDICARE [place] SUPPLEMENT [place] [id number] documented as of this encounter
[2020-01-21] MEDS ORDERED: NA CHLORIDE 0.9% 1,000 ML IV ONE ×2 (19:18→19:19)
[2020-01-21] MEDS ORDERED: NOREPINEPHRINE 4mg/D5W 250mL 0 MG/0 ML BAG IV ONE (19:41)
[2020-01-21] MEDS ORDERED: DOBUTAMINE 250 MG/250 ML BAG IV ONE (19:43)
[2020-01-21] MEDS ORDERED: ALBUTEROL 2.5 MG/3 ML NEB SOL NEB PRN (19:47)
[2020-01-21] MEDS ORDERED: ONDANSETRON 4 MG/2 ML VIAL IV PRN (19:47)
[2020-01-21] MEDS ORDERED: ACETAMINOPHEN 500 MG TAB PO PRN (19:47)
[2020-01-21] MEDS ORDERED: MORPHINE 2 MG/ML SYR IV PRN (19:47)
[2020-01-21] MEDS ORDERED: LORAZEPAM 0.5 MG TABLET PO PRN (19:53)
[2020-01-21] MEDS ORDERED: guaiFENesin 100 MG/5 ML UCUP PO PRN (19:53)
--- NOTE | 2020-01-21 20:01 | P.PN ---
Date of Service: 01/21/20 Patient with HTN/DM , CAD s/p 4-V CABG last week ,developed near syncope with hypotenion today at rehab unit . transferred to ICU , and started on 2 L IVF bolus . BP still in the 80s /30s on second liter IVF when seen , marked b/l creps and gross anasarca with 4 + b/l pedal edema . IVF reduced to 50 cc/hr , started on dobutamine gtt . presumed cardiogenic shock , may need levo if no response to dobutamine gtt
[2020-01-21] MEDS ORDERED: DOBUTAMINE 250 MG/250 ML BAG IV PRN (20:08)
[2020-01-21 20:48] LABS: Magnesium 1.9 mg/dL (1.8-2.4); Potassium 3.7 mmol/L (3.5-5.1); Troponin I 0.23 ng/mL (0.0-0.045)
[2020-01-21 20:53] LABS: Absolute Lymphocytes (CBC) 1.4 K/uL (0.7-4.9); Hematocrit 23.7 % (39.6-49.0); Lymphocytes % 16.6 % (15.3-44.8); MPV 6.6 fL (7.6-11.3); RBC Red Blood Cell Count 2.54 M/uL (4.33-5.43)
[2020-01-21] MEDS: INSULIN -REGULAR HUMAN 50 UNIT/0.5 ML ML SQ SCH (21:00)
[2020-01-21] MEDS: INSULIN GLARGINE 100 UNITS/ML SQ SCH (21:00)
[2020-01-21] MEDS: METFORMIN HCL 500 MG TAB PO SCH (21:00)
[2020-01-21] MEDS: NA CHLORIDE 0.9% 1,000 ML IV SCH (21:00)
[2020-01-21] MEDS ORDERED: HEPARIN 5000 UNIT/ML 1 ML VIAL SQ SCH (21:00)
--- NOTE | 2020-01-21 21:26 | HP ---
Date of Admission: 01/21/2020 Presenting Complaint: Near syncope. History Of Present Illness: Abdirashid Damon is a 74-year-old male with past medical history of hypertension, diabetes mellitus, CAD, who developed sudden onset shortness of breath and ended up un dergoing a 4-vessel CABG at [facility] in [place] last week. Patient was subsequently discharged to reha b. Patient was in rehab today when he developed a feeling of dizziness and he was noted with low blo od pressure in his 80s/30s. He was transferred to the ICU now. He is on a second liter of IV fluid bolus with marginal change in his blood pressure. Patient admits to increasing body swelling since h is post surgery. He denies any known history of CHF. He said he did not have chest pain prior to hi s cardiac events. He feels much better, though, he is lying in the reverse Trendelenburg position. Past Medical History: Hypertension, diabetes, hyperlipidemia, coronary artery disease, history of BP H. Past Surgical History: Status post CABG 1 week ago. Allergies: PENICILLIN, CIPRO. Home Medications: See extensive medication list. Family History: Noncontributory. Social History: Patient denies alcohol, tobacco, or illicit drug use. Review of Systems: All systems reviewed x14 were negative, except for increasing body swelling and weakness and near diz ziness today. Physical Examination: Vital Signs: Current vitals; blood pressure of 82/39, respiratory rate of 20, pulse of 78, O2 satura tion 94% on 2 L nasal cannula, temperature afebrile. General: Obese, elderly male, lying in bed on reverse Trendelenburg position. Head: Atraumatic, normocephalic. On nasal cannula O2. Neck: No JVD, but mild prominence of central venous distention. Respiratory: Moderate crepitation up to the mid lung zones bilaterally. No rhonchi. Cardiovascular: S1, S2. Sternotomy scar wound well healing in-situ. GI: Abdomen is full, soft. Bowel sounds positive. No ascites. No suprapubic fullness. Extremities: 4+ pedal edema. Healing scar over the left lower extremity from a vein harvest. Neuro: Patient is alert, oriented. Cranial nerves 2 through 12 grossly intact. Laboratory Data: Pending. Impression: 1.Presumed cardiogenic shock. 2.Presumed systolic congestive heart failure. 3.Status post recent coronary artery bypass graft. 4.Hypotension due to cardiogenic shock. 5.Diabetes mellitus. Plan: We will keep him in the ICU. We have slowed down the IV fluids and reduced the rate to 50 mL/ hour. We will start patient on dobutamine drip to increase inotropic effects and possibly improve bl ood pressure. If persistent hypotension, we will add Levophed. We will obtain stat BMP, CBC as well as proBNP now. We do start the patient on insulin sliding scale. We will hold off all the blood pr essure medications. We will obtain lipid panel in the a.m. We will consult Cardiology. We will als o do serial set of cardiac enzymes for now. We will continue to monitor, follow daily weights and ur ine outputs. We will start patient on Lasix if blood pressure improves. DVT prophylaxis, we will to do subcutaneous heparin at q.12 dose for now. Continue aspirin and Plavix. Total time spent in review of record, discussion with patient and evaluation is greater than 70 minrenetta ROSENTHAL/VIANNEY Voice ID: [id number]
[2020-01-21] MEDS: ATORVASTATIN 20 MG TAB PO SCH (21:42)
[2020-01-21] MEDS ORDERED: NA CHLORIDE 0.9% 250 ML ONE (23:54)
[2020-01-22] MEDS ORDERED: NOREPINEPHRINE 4mg/D5W 250mL 4 MG/250 ML BAG IV ONE (01:30)
[2020-01-22] MEDS: NOREPINEPHRINE 4 MG in D5W 250 ML IV PRN ×2 (01:59→11:01)
[2020-01-22 05:40] LABS: Absolute Lymphocytes (CBC) 1.4 K/uL (0.7-4.9); Basophils % 0.8 % (0-1.3); Hematocrit 26.1 % (39.6-49.0); Lymphocytes % 16.1 % (15.3-44.8); MPV 6.7 fL (7.6-11.3); RBC Red Blood Cell Count 2.86 M/uL (4.33-5.43)
[2020-01-22 05:46] LABS: Albumin 2.3 g/dL (3.4-5.0); Bilirubin Total 1.2 mg/dL (0.2-1.0); Potassium 3.3 mmol/L (3.5-5.1); Protein, Total 6.4 g/dL (6.4-8.2)
[2020-01-22 06:11] VITALS: BMI 39.3
[2020-01-22] MEDS ORDERED: PANTOPRAZOLE 40MG TABLET PO SCH (06:30)
[2020-01-22] MEDS: INSULIN -REGULAR HUMAN 50 UNIT/0.5 ML ML SQ SCH ×4 (07:30→21:00)
[2020-01-22 08:04] LABS: Blood Morphology Comment NOT SEEN (NOT SEEN); Platelet Estimate ADEQ
[2020-01-22] MEDS: ASPIRIN 81 MG CHEWABLE TABLET PO SCH (08:32)
[2020-01-22] MEDS: FENOFIBRATE 160 MG TAB PO SCH (08:32)
[2020-01-22] MEDS: GLIPIZIDE S.A. 5 MG TAB PO SCH ×2 (08:32→17:18)
[2020-01-22] MEDS: METFORMIN HCL 500 MG TAB PO SCH ×2 (08:32→17:18)
[2020-01-22] MEDS: PANTOPRAZOLE 40MG TABLET PO SCH ×2 (08:32→17:18)
[2020-01-22] MEDS: FINASTERIDE 5 MG TAB PO SCH (08:32)
[2020-01-22] MEDS: INSULIN GLARGINE 100 UNITS/ML SQ SCH ×2 (08:33→21:00)
[2020-01-22] MEDS: FUROSEMIDE 40 MG TABLET PO SCH ×2 (08:33→17:00)
[2020-01-22] MEDS: CLOPIDOGREL 75 MG TABLET PO SCH (08:33)
[2020-01-22] MEDS: gemfibroziL 600 MG TAB PO SCH ×2 (08:35→21:00)
[2020-01-22] MEDS: FERROUS SULFATE 325 MG TAB PO SCH (08:48)
[2020-01-22] MEDS ORDERED: HEPARIN 5000 UNIT/ML 1 ML VIAL SQ SCH (09:00)
[2020-01-22] MEDS: NA CHLORIDE 0.9% 1,000 ML IV SCH (13:44)
--- NOTE | 2020-01-22 14:42 | PN ---
Date of Progress Note: 01/22/2020 Subjective: Patient seen and examined. Chart reviewed and case discussed with RN. Unfortunately, C ardiology is unavailable due to unforeseen circumstances. Patient currently denies any chest pain. He is being weaned off the second pressor that had to be started overnight due to hypotension and pos sible cardiogenic shock. Code status full. Physical Examination: Vital Signs: Temperature 97.3, heart rate 93, blood pressure 115/56, respirations 22, O2 90% on 2 L via nasal cannula. General: Awake, alert, oriented x3, ill-appearing male, obese, BMI 39.3. CV: S1, S2. Regular rate and rhythm. Peripheral pulses present. Respiratory: Diminished breath sounds at the bases, otherwise moving air well bilaterally. No wheez ing or stridor. Gastrointestinal: Abdomen is soft, nontender, nondistended. Positive bowel sounds. Extremities: No clubbing, cyanosis. Patient has edema of the left lower extremity where his vein gr aft was taken recently. Neurologic: Nonfocal. Cranial nerves 2 through 12 intact grossly. No focal neurological deficits. Speech is normal. Skin: Patient has healing surgical incision scars of the thorax and leg. Laboratory Data: Sodium 141, potassium 3.3, chloride 104, CO2 of 30, BUN 37, creatinine 1.39, glucos e 139, calcium 7.8, magnesium is pending. Troponin 0.23 and then 0.21. Albumin 2.3. WBC 8.8, H and H 8.6 and 26.1, platelets 419, neutrophils 69.9%. Assessment And Plan: 1.Cardiogenic shock improving. Troponin mildly elevated. Patient requiring dobutamine and Levophed , now off both, may also be related to dehydration. 2.Presumed systolic congestive heart failure. We will try to obtain previous records. Continue wit h fluid restriction. Monitor inputs and outputs. 3.Recent coronary artery bypass graft, stable. No chest pain, [place] artery and [place] heart. 4.Hypotension due to cardiogenic shock versus volume depletion. 5.Diabetes mellitus type 2, non-insulin requiring. We will continue with sliding scale insulin. Mo nitor blood glucose levels. Plan: Continue monitoring in the ICU setting. Keep mean arterial press ure at 65. Cardiology unfortunately unavailable at this time. Patient currently off pressors. Bloo d pressure is stable. We will hold off on any transfer at this time. 6.Acute anemia. Patient was given a unit of blood overnight. Hemoglobin is now at 8.6. Due to his recent cardiac surgery, he will need transfusion if he falls below 8 rather than 7. We will continu e to monitor H and H, transfuse as needed. 7.Acute kidney injury. Creatinine is improving, down to 1.39. We will continue to monitor. Eagle pearce consult Nephrology. SA/MODL Voice ID: [id number] Report ID: [id number]
[2020-01-22] MEDS ORDERED: ENOXAPARIN 40 MG/0.4 ML SQ SCH (17:00)
[2020-01-22] MEDS ORDERED: ENOXAPARIN 30 MG/0.3 ML SQ SCH (17:00)
--- NOTE | 2020-01-22 19:59 | RAD REPORT ---
EXAM DESCRIPTION: RAD - Chest Single View - 01/21/2020 10:39 pm ADDENDUM #1 The PICC catheter tip appears to be in good position. The catheter could be pulled back one or 2 cm f or positioning in the SVC. Electronically signed by: Keshawn Riddle MD 01/21/2020 10:20 PM CDT End of Addendum EXAM DESCRIPTION: Chest Single View CLINICAL HISTORY: 74 years Male S/P PICC insertion COMPARISON: None. FINDINGS: The left PICC tip overlies the upper right atrium. Cardiomegaly and mild vascular congesti on. Changes from previous sternotomy. No consolidating infiltrates or large pleural effusions. No p neumothorax. IMPRESSION: The left PICC tip overlies the upper right atrium. Electronically signed by: Keshawn Riddle MD 01/21/2020 9:42 PM CDT Due to temporary technical issues with the PACS/Fluency reporting system, reports are being signed by the in house radiologist as a courtesy to ensure prompt reporting. The interpreting radiologist is f ully responsible for the content of the report.
[2020-01-22] MEDS: Oxycodone HCl/Acetaminophen 1 TAB TAB PO PRN (21:36)
[2020-01-22] MEDS: ATORVASTATIN 20 MG TAB PO SCH (21:38)
--- NOTE | 2020-01-22 22:02 | CON ---
Date of Consultation: 01/22/2020 Chief Complaint: Acute kidney injury. History Of Present Illness: Patient presented to the hospital, was found to have elevated BUN and creatinine. He is admitted to ICU. Workup revealed elevated troponin up to 0.23, elevated BNP of 2778, creatinine was 1.67 and BUN 45. The patient was found to have hypokalemia, potassium was 3.3 and there is no evidence of metabolic acidosis. Bicarbonate is 29, chloride 105. The patient remains in ICU. He has nonoliguric urine output. Patient is a 74-year- old man with past medical history of hypertension, diabetes mellitus, diabetic kidney stage 3, coronary artery disease. He developed sudden onset of shortness of breath. Recently, he underwent 4-vessel CABG at [facility] last week. Patient subsequently was discharged to rehab. Patient prior to this admission developed dizziness. He was found to have hypotension. He was transferred from the rehab to ICU. He received IV fluids for blood pressure support and remains in ICU. He was found to have congestive heart failure with elevated BNP. although he received IV fluids for blood pressure support and to control hypotension. Patient denies chest pain prior to this event. Review of Systems: Constitutional: Denies fever, chills. Eyes: Denies vision changes. Ears, Nose, mouth and Throat: Denies sore throat or earache. Respiratory: Denies PND, orthopnea. Cardiovascular: Denies chest pain, palpitation. GI: Denies nausea, vomiting. : Denies dysuria, hematuria. Musculoskeletal: Denies muscle aches or joint swelling. All other systems reviewed and all are negative. Past Medical History: Hypertension, diabetes mellitus, hyperlipidemia, obesity , coronary artery disease, history of BPH, diabetic kidney disease, hypertensive kidney disease, stage 3. Past Surgical History: CABG 1 week. Family History: No kidney disease in the family. Social History: Denies tobacco, alcohol, or illicit drug. Physical Examination: Vital signs: Patient is in ICU. SpO2 is 94% on 2 L nasal cannula. Blood pressure is 95/40, heart rate is 78, respiratory rate is 20. General: Patient is obese. Eyes: Anicteric sclerae. EOMI. Ears, Nose, mouth and Throat: Oral mucosa moist. No pallor. Neck: Supple. No bruits. Lungs: Diminished breath sounds at bases. Heart: S1, S2. No pericardial friction, rub. Abdomen: Soft, benign, obese, nontender. No rebound. No guarding. Extremities: Edema present in both legs. Healing scars of the lower extremity after vein harvesting. Neurological: Moving extremities. Cranial nerves intact. Psychiatric: Alert, oriented x3. Normal affect. Laboratory Data: Sodium 141, potassium 3.3, chloride 104, CO2 of 30, BUN 37, creatinine is 1.39, glucose 139, calcium 7.8, albumin 2.3, total protein 6.4. Platelet count 419, WBC 8.8, hemoglobin 8.6, hematocrit 26.1. Chest x-ray is pending. Impression And Plan: 1. Acute on chronic kidney injury secondary to prerenal azotemia. Blood pressure is improving. Patient received IV fluids to prevent renal hypoperfusion. Cardiogenic shock is improving. Troponin is mildly elevated. Patient is on dobutamine and Levophed for blood pressure support. Patient received IV fluids to prevent hypovolemia and shock. Patient has history of leg edema and recently underwent coronary artery bypass graft. There is likely systolic congestive heart failure and cardiorenal syndrome with a systolic dysfunction. Patient will continue dopamine for blood pressure support and dobutamine. Currently, he is on Levophed, although both pressors were weaned off. Blood pressure remain stable. Patient remains hemodynamically stable. 2. Continue to avoid nephrotoxic medication. 3. Anemia. Blood transfusion was given 1 dose of packed red blood cells, likely patient has anemia due to recent surgery. Monitor for acute anemia. 4. HTN , BP meds on hold due to hypotension. 5. Fluid overload, edema, systolic dysfunction, congestive heart failure. Patient may require diuretic, although at this point plan is to monitor blood pressure closely and continue to wean pressors. EB/MODL Voice ID: [id number] Report ID: [id number] REBEKAH
[2020-01-22 22:23] LABS: Phosphorus 1.9 mg/dL (2.5-4.9)
[2020-01-22 22:24] LABS: Potassium 3.6 mmol/L (3.5-5.1); Troponin I 0.16 ng/mL (0.0-0.045)
[2020-01-23 05:32] LABS: Absolute Lymphocytes (CBC) 1.4 K/uL (0.7-4.9); Basophils % 0.6 % (0-1.3); Hematocrit 25.5 % (39.6-49.0); Lymphocytes % 16.4 % (15.3-44.8); MPV 6.6 fL (7.6-11.3); RBC Red Blood Cell Count 2.77 M/uL (4.33-5.43)
[2020-01-23] MEDS: INSULIN -REGULAR HUMAN 50 UNIT/0.5 ML ML SQ SCH ×4 (07:30→20:46)
[2020-01-23] MEDS: FERROUS SULFATE 325 MG TAB PO SCH (08:46)
[2020-01-23] MEDS: FENOFIBRATE 160 MG TAB PO SCH (08:46)
[2020-01-23] MEDS: CLOPIDOGREL 75 MG TABLET PO SCH (08:46)
[2020-01-23] MEDS: ASPIRIN 81 MG CHEWABLE TABLET PO SCH (08:46)
[2020-01-23] MEDS: PANTOPRAZOLE 40MG TABLET PO SCH ×2 (08:46→17:09)
[2020-01-23] MEDS: FINASTERIDE 5 MG TAB PO SCH (08:46)
[2020-01-23 10:15] LABS: Potassium 3.7 mmol/L (3.5-5.1)
--- NOTE | 2020-01-23 10:34 | PN ---
Date of Progress Note: 01/23/2020 Subjective: Patient seen and examined. Chart reviewed and case discussed with RN and Dr. Vazquez. Patient is doing better. He did have an episode of hypoglycemia this morning with blood sugar in 44. Has not been eating as well he usually does. Denies any shortness of breath. Medications: List reviewed. Physical Examination: Vital Signs: Temperature 98.4, heart rate 74, blood pressure 106/45, respirations 15, O2 94% on 2 L via nasal cannula. General: Awake, alert, oriented x3, elderly male, not in any acute distress, ill-appearing, obese, BMI 39.4. CV: S1, S2. Regular rate and rhythm. Peripheral pulses present. Respiratory: Diminished breath sounds. Some crackles heard. No wheezing or stridor. Gastrointestinal: Abdomen is soft, nontender, nondistended. Positive bowel sounds. No guarding or rigidity. Extremities: No clubbing, cyanosis. Patient has peripheral edema, worse on the left. Neuro: Nonfocal. Laboratory Data: Sodium 140. WBC 8.3, H and H 8.5 and 25.5, platelets 343. Assessment: 74-year-old male with: 1. Possible cardiogenic shock, improving, now off pressors. Likely related to recent CABG. 2. Systolic congestive heart failure. Echocardiogram will not be able to be done until tomorrow. Appreciate Cardiology input. We will continue to monitor intravenous fluids and fluid restriction. Currently on gentle intravenous fluids due to hypotension. 3. Recent coronary artery bypass graft, stable [place] artery, [place] heart. No chest pain. Continue home medications. 4. Acute hypotension, likely due to cardiogenic shock versus volume depletion. 5. Diabetes mellitus type 2, non-insulin requiring. We will continue with sliding scale insulin. Monitor blood glucose levels. 6. Acute anemia, unclear etiology, likely acute on chronic blood loss from his recent surgery. Did receive transfusion 1 unit. We will continue to monitor and transfuse for less than 8. 7. Acute kidney injury. Creatinine is improving. We will repeat BMP this morning. Appreciate Nephrology input. 8. Deep vein thrombosis prophylaxis. We will restart Lovenox when the hemoglobin is stable. SA/MODMonica Voice ID: [id number] Report ID: [id number] REBEKAH
[2020-01-23] MEDS: NA CHLORIDE 0.9% 1,000 ML IV SCH (10:54)
[2020-01-23] MEDS: Oxycodone HCl/Acetaminophen 1 TAB TAB PO PRN ×2 (13:47→23:41)
--- NOTE | 2020-01-23 13:52 | CON ---
Date of Consultation: 01/23/[address] Jordan's service on 01/21/2020. I saw the patient on 01/23/2020. Reason For Consultation: Elevated troponin and hypotension. History Of Present Illness: Mr. Damon is a 74-year-old white male, who sees Dr. Franklyn Garay wh o send him to Dr. Martinez for cardiology consultation. At that time, he was having dyspnea on exertion. Dr. Martinez performed an echo and a stress test. He was found to have positive heart disease including valvular heart disease and coronary artery disease. He was seen by Pulmonology prior to that. He wa s cleared from that standpoint. He went to [facility] and underwent a quadruple bypass surgery and an aort ic bovine bioprosthetic valve replacement. He was in rehab here in [place] and apparently was n oted to be very hypotensive. He was brought down to the ICU for further care. He was noted to have acute on chronic renal injury with a creatinine 1.67. Potassium was 3.3. His troponin was 0.23. It was thought that maybe he had a cardiorenal syndrome with cardiogenic shock, all that has improved s [facility] [place] [facility] admission with hydration. At one point, he was on dopamine and Levophed, those have been weaned off. His last blood pressure was 101/48. Throughout all this, patient actually denied any chest pa in, PND, orthopnea, pedal edema, palpitation, or syncope. Past Medical History: Chronic renal disease; benign prostatic hypertrophy; hypertension; diabetes; d yslipidemia; obesity; obviously coronary artery disease, status post CABG and valvular aortic stenosi s, status post AVR, bioprosthetic bovine. Allergies: CIPROFLOXACIN AND PENICILLIN. Review of Systems: Negative. Social History: Negative. Family History: Noncontributory. Medications: At home include Lasix, metformin, lisinopril, aspirin, Lipitor, Plavix, TriCor, glipizi de, Lopid, Coreg, Prilosec, and Flomax. Physical Examination: General: Mr. Damon is very pleasant, in no acute distress. Vital Signs: Stable. He was afebrile. He was not on any pressors. His blood pressure is 101/48. He is in normal sinus rhythm, although some episodes of atrial fibrillation had been noted. They wer e brief and asymptomatic. HEENT: Negative. Neck: Supple with no bruit, lymphadenopathy, JVD, or thyromegaly. Chest: Clear to auscultation and percussion. Cardiac: Revealed a regular rhythm and rate. No murmurs, gallops, or rubs. Abdomen: Obese. Extremities: Revealed no clubbing, cyanosis, or edema. Neurologic: Appeared to be nonfocal. Skin: Dry and intact. Diagnostic Data: Creatinine is 1.36. Troponin is 0.16. Hemoglobin is 8.5. BNP is 2778. Impression And Plan: 1.Hypotension, acute, probably secondary to a combination of cardiogenic shock and renal failure. H e has improved dramatically. He is not on any pressors anymore. Blood pressure is 101/48. He is as ymptomatic. Echocardiogram is pending for tomorrow. His elevated troponin is definitely not an acut e coronary syndrome. This is secondary to renal failure, congestive heart failure, and recent bhat ry artery disease with coronary artery bypass graft. 2.Coronary artery disease, status post coronary artery bypass graft. 3.Aortic stenosis, status post aortic valve replacement, bioprosthetic bovine. 4.Renal failure, acute on chronic, followed by Nephrology. Potassium has been corrected. His other problems include obesity, dyslipidemia, diabetes. These seem to be well controlled at this point. Right now, he is not receiving any tPA medication. I would definitely resume the aspirin and the Mckenzie vix. Once his blood pressure tolerates it, carvedilol would be indicated. I would definitely hold t he Lasix and lisinopril for now. He should be at least on one statin, maybe the Lipitor only for now . We will re-evaluate these issues later after he is ready to go home. For now, we will see what th e echocardiogram shows. He did have some paroxysmal atrial fibrillation that is asymptomatic. He is on Lovenox. I do not really want to start him on any acute anticoagulants right now, but we may hav e to do that down the road. After he goes home, certainly an event monitor may be indicated. His at rial fibrillation right now may be secondary to everything else that is going on. I will continue to follow him. ABRAHAM/ARIANNAL Voice ID: [id number] Report ID: [id number]
[2020-01-23] MEDS: ATORVASTATIN 20 MG TAB PO SCH (20:45)
--- NOTE | 2020-01-23 22:40 | PN ---
Date of Progress Note: 01/23/2020 Chief Complaint: Acute kidney injury. History Of Present Illness: Patient presented to the hospital, was found to have elevated BUN and creatinine. He was admitted to ICU. Workup revealed elevated troponin and elevated BNP of 2778, creatinine was 1.67 and BUN 45. The patient was found to have hypokalemia, potassium was 3.3. There was no evidence of metabolic acidosis. Bicarbonate was 29 and chloride 105. Patient has nonoliguric urine output. He is 74-year-old with multiple medical problems including diabetic kidney disease, stage 3 chronic kidney disease, coronary artery disease. He received IV fluids for blood pressure support to prevent hypotension. Review of Systems: Patient denies chills, denies fever, denies cough. Past Medical History: Hypertension, diabetes mellitus, obesity, coronary artery disease, diabetic kidney disease, stage 3 kidney disease. Physical Examination: General: Patient is awake and alert, follows commands. Eyes: Anicteric sclerae. EOMI. Ears, Nose, Mouth, and Throat: Oral mucosa moist. No pallor. Lungs: Diminished breath sounds at bases. Few crackles. Heart: S1 and S2. Abdomen: Soft, benign, obese. Extremities: Slight edema. Impression And Plan: 1. Mtubk-ms-rfktnrx kidney injury secondary to prerenal azotemia, nonoliguric acute tubular necrosis. Patient received IV fluids to prevent renal hypoperfusion. Creatinine level is slightly improved to 1.39. Monitor renal function and electrolytes and plan is to monitor potassium and magnesium and replace potassium level. Continue to avoid nephrotoxic medication. 2. Anemia. Blood transfusion was given with 1 unit of packed red blood cells. Patient has a peripheral edema. 3. Congestive heart failure. Patient may need diuretics for maintenance control of swellings and congestive heart failure when blood pressure stabilizes. I spent total 36 min including 25 min to coordinate care plan. GARY/VIANNEY Voice ID: [id number] Report ID: [id number] REBEKAH
[2020-01-24] MEDS: INSULIN -REGULAR HUMAN 50 UNIT/0.5 ML ML SQ SCH ×2 (07:30→12:00)
[2020-01-24] MEDS: PANTOPRAZOLE 40MG TABLET PO SCH (08:53)
[2020-01-24] MEDS: ASPIRIN 81 MG CHEWABLE TABLET PO SCH (08:54)
[2020-01-24] MEDS: CLOPIDOGREL 75 MG TABLET PO SCH (08:54)
[2020-01-24] MEDS: FERROUS SULFATE 325 MG TAB PO SCH (08:54)
[2020-01-24] MEDS: FENOFIBRATE 160 MG TAB PO SCH (08:55)
[2020-01-24] MEDS: Oxycodone HCl/Acetaminophen 1 TAB TAB PO PRN (08:57)
[2020-01-24] MEDS: FINASTERIDE 5 MG TAB PO SCH (08:58)
[2020-01-24] MEDS ORDERED: FUROSEMIDE 20 MG TABLET PO SCH (09:00)
[2020-01-24 09:42] VITALS: O2SAT 93
--- NOTE | 2020-01-24 11:54 | ECHO ---
HEIGHT: 5 ft 7 in WEIGHT: 251 lb 4 oz DATE OF STUDY: 01/24/[address]: Daniel Cantu MD 2-DIMENSIONAL: YES M.MODE: YES DOPPLER: YES COLOR FLOW: YES TDS: YES PORTABLE: NO DEFINITY: NO BUBBLE STUDY: NO DIAGNOSIS: CEREBRAL VASCULAR ACCIDENT CARDIAC HISTORY: CATHERIZATION: YES SURGERY: YES PROSTHETIC VALVE: YES PACEMAKER: NO MEASUREMENTS (cm) DIASTOLIC (NORMALS) SYSTOLIC (NORMALS) IVSd (0.6-1.2) LA Diam (1.9-4.0) LVEF 55-60% LVIDd (3.5-5.7) LVIDs (2.0-3.5) %FS % LVPWd (0.6-1.2) Ao Diam 2.4 (2.0-3.7) 2 DIMENSIONAL ASSESSMENT: RIGHT ATRIUM: NORMAL LEFT ATRIUM: NORMAL RIGHT VENTRICLE: NORMAL LEFT VENTRICLE: NORMAL TRICUSPID VALVE: NORMAL MITRAL VALVE: NORMAL PULMONIC VALVE: NORMAL AORTIC VALVE: BIOPROSTHETIC PERICARDIAL EFFUSION: NONE AORTIC ROOT: NORMAL LEFT VENTRICULAR WALL MOTION: PARADOXICAL SEPTUM. DOPPLER/COLOR FLOW: NORMAL COMMENTS: NORMAL BIOPROSTHETIC AORTIC VALVE REPLACEMENT. NO AORTIC REGURGITATION. TECHNICALLY DIFFICULT STUDY. NORMAL LEFT VENTRICULAR SIZE AND FUNCTION. LEFT VENTRICULAR EJECTION FRACTION 55-60%. PARADOXICAL SEPTUM CONSISTANT WITH HISTORY OF CORONARY ARTERY BYPASS GRAFT. NO EFFUSION. TECHNOLOGIST: Maryam HERNÁNDEZ
[2020-01-24 12:15] VITALS: BP 169/75; TEMP 97
--- NOTE | 2020-01-24 12:32 | DS ---
Consultants: 1. Dr. Vazquez with Cardiology. 2. Dr. Talita Richter with Nephrology. Procedures: None. Admitting Diagnoses: 74-year-old male with: 1. Presumed cardiogenic shock. 2. Presumed systolic congestive heart failure. 3. Status post recent coronary artery bypass graft. 4. Hypotension due to cardiogenic shock. 5. Diabetes mellitus. Discharge Diagnosis: 1. Cardiogenic shock due to recent coronary artery bypass graft, off pressors now. 2. Diastolic congestive heart failure, chronic. EF 60%. 3. Recent coronary artery bypass graft to [place] artery and [place] heart without any angina. 4. Acute hypotension due to cardiogenic shock, volume depletion. 5. Diabetes mellitus type 2, non-insulin requiring. Continue with sliding scale insulin. 6. Acute anemia likely due to acute on chronic blood loss from recent surgery , status post 1 unit PRBCs. 7. Acute kidney injury. Kidney function normalized. 8. Aortic valve replacement, bovine. Hospital Course: Patient is a 74-year-old male with multiple chronic medical conditions including diabetes, hypertension, heart disease, who recently had a coronary artery bypass graft in 4-vessel and aortic valve replacement with bovine valve. This was all done at [facility] in [place] a week prior to admission. Patient was in rehab, had dizziness and low blood pressure of 70s over 30s and was transferred to the ICU. Patient was nonresponsive to IV fluids. He was started on dobutamine and Levophed. Blood pressure improved with pressors. Patient was in cardiogenic shock secondary to CABG. Patient was slowly able to be weaned off the pressors and he was switched over to IV fluids. Patient's blood pressure slowly improved. He was then moved out of ICU. Patient's Lasix and Coreg were restarted. Patient's echocardiogram was done and he was seen by Cardiology. Patient's echocardiogram showed EF of 60%. Dr. Vazquez recommended stopping the lisinopril as his ejection fraction is normal and to cut down his Lasix dose. He was initially on 40 twice a day. He will be titrated on 20 daily and then titrated up as needed. Patient does have lower extremity swelling slightly on the left side where the vein graft was used. Overall, patient did well. His acute kidney injury resolved. He had mild elevation in his troponin, which was likely due to his CHF and recent CABG. There was no ACS per Cardiology. His electrolytes were corrected. He had some mild hypokalemia due to the Lasix. He did require 1 unit of blood as his hemoglobin was 7.7. Aim is to keep him above 8 due to recent cardiac surgery. No active bleeding at this time. Patient was then doing well. He was off IV fluids. His blood pressure was stable. He was then transferred back to rehab in a fair condition. Medications: As per medication reconciliation list. Again, the lisinopril will be held. The Lasix will be dropped down to 20 mg daily and he will continue his aspirin and Plavix and DVT thrombosis prophylaxis. Return to ER for worsening condition. Followup: Follow up with primary care physician in 1-2 weeks. Follow up with Cardiology, Dr. Vazquez in 2 weeks. Follow up with tank carpenter, Dr. Estephania Ludwig in 2 weeks. Return to ER for worsening condition. Activity: As per Rehab. Physical Examination: General: Awake, alert, oriented x3. Elderly male, obese. BMI 39.4. CV: S1, S2. Regular rate and rhythm. Respiratory: Somewhat diminished breath sounds at the bases otherwise moving air well. Gastrointestinal: Abdomen is soft, nontender, nondistended. Positive bowel sounds. Extremities: No clubbing or cyanosis. Patient has edema on the left lower extremity, worse in the right. Neurologic: Nonfocal. Total time spent discharging patient was 37 minutes. /VIANNEY Voice ID: [id number] Report ID: [id number] REBEKAH
[2020-01-24] MEDS ORDERED: ALBUTEROL 2.5 MG/3 ML NEB SOL NEB PRN (15:00)
--- NOTE | 2020-01-24 20:38 | PN ---
Date of Progress Note: 01/23/2020 Mr. Damon was seen on 01/23/2020 for what appeared to be cardiorenal syndrome, had history of recen t CABG and aortic valve replacement. He had come in with hypotension, elevated creatinine, elevated troponin, low potassium, as well as anemia. Today, fortunately, he is off pressors. Blood pressure is 131/60. He is in a sinus rhythm. His last hemoglobin is 8.5. His last creatinine is 1.14. He h as no specific complaint. Echocardiogram that was done today showed a normal ejection fraction. Par adoxical septal wall motion, which is expected post surgery. His bioprosthetic valve in the aortic r egion was functioning appropriately without aortic regurgitation. I discussed the case with the with Dr. Jordan. I am comfortable with the patient leaving the ICU going back to telemetry. I would defi nitely resume his carvedilol, aspirin, Plavix, and Lipitor. I would leave him without any STERLING inhibi tors, ARB use or Lasix at this point. He has not had any further atrial fibrillation since yesterday . We will continue to watch that and if he has any more atrial fibrillation, we will readdress that issue then. I would still prefer, he has an event monitor as an outpatient. I will continue to foll ow him. ABRAHAM/VIANNEY Voice ID: [id number] Report ID: [id number]
[2020-01-24] MEDS ORDERED: carvediloL 6.25 MG TAB PO SCH (21:00)
[2020-01-24] MEDS ORDERED: TAMSULOSIN 0.4 MG SR CAP PO SCH (21:00)
[2020-01-24] MEDS ORDERED: JUVEN PACKET PO SCH (21:00)
--- NOTE | 2020-01-24 23:59 | PN ---
Date of Progress Note: 01/24/2020 Chief Complaint: Acute kidney injury. History Of Present Illness: Patient presented to the hospital because of generalized weakness and dizziness. Patient was found to have elevated BUN and creatinine. He was admitted to ICU. He was found to have elevated BNP of 2778 , creatinine was 1.67, BUN 45, potassium 3.3. Patient was consulted by lawn mower repairer for elevated troponin and congestive heart failure. Patient was found to have acute on chronic kidney injury secondary to prerenal azotemia, nonoliguric ATN secondary to renal hypoperfusion and received IV fluids for blood pressure control. Review of Systems: Denies fever or chills. Physical Examination: Lungs: Clear to auscultation bilaterally. Heart: S1, S2. Abdomen: Soft, benign. Extremities: Minimal edema. Impression And Plan: 1. Acute on chronic kidney injury secondary to prerenal azotemia. Renal function is improving. IV fluids were used to prevent renal hypoperfusion. 2. Congestive heart failure. Cardiology consultation was obtained. Patient may need to resume maintenance diuretic when blood pressure is stable. Continue low-sodium diet. 3. Anemia. Blood transfusion was given with 1 unit of packed red blood cells. Monitor for any evidence of acute anemia. I spent total 36 min including 25 min to coordinate care plan. GARY/VIANNEY Voice ID: [id number] Report ID: [id number] REBEKAH
== END 2020-01-24 16:23 | DRG 919 ==
LOC: 3RD-ICU 18:20 → 2ND 01-23 16:32
PROVIDERS: ADMIT Family Medicine; ATTEND Family Medicine
PROC: 02HV33Z Insertion of Infusion Device into Superior Vena Cava, Percutaneous Approach (ICD-10-PCS; 2020-01-21)
PROC: 30233N1 Transfusion of Nonautologous Red Blood Cells into Peripheral Vein, Percutaneous Approach (ICD-10-PCS; principal; 2020-01-22)
DX: T81.11XA Postprocedural cardiogenic shock, initial encounter (principal); N17.0 Acute kidney failure with tubular necrosis; I13.0 Hypertensive heart and chronic kidney disease with heart failure and stage 1 through stage 4 chronic kidney disease, or unspecified chronic kidney disease; D62 Acute posthemorrhagic anemia; I50.32 Chronic diastolic (congestive) heart failure; I25.10 Atherosclerotic heart disease of native coronary artery without angina pectoris; Z88.0 Allergy status to penicillin; E66.9 Obesity, unspecified; Z68.39 Body mass index [BMI] 39.0-39.9, adult; Z88.1 Allergy status to other antibiotic agents; Z95.1 Presence of aortocoronary bypass graft; I95.9 Hypotension, unspecified; E11.22 Type 2 diabetes mellitus with diabetic chronic kidney disease; E87.6 Hypokalemia; N18.3 Chronic kidney disease, stage 3 (moderate); Z95.2 Presence of prosthetic heart valve; Z95.5 Presence of coronary angioplasty implant and graft; Z79.84 Long term (current) use of oral hypoglycemic drugs; Z79.02 Long term (current) use of antithrombotics/antiplatelets; Z79.899 Other long term (current) drug therapy; E11.649 Type 2 diabetes mellitus with hypoglycemia without coma; I35.0 Nonrheumatic aortic (valve) stenosis; I48.0 Paroxysmal atrial fibrillation; E86.9 Volume depletion, unspecified; Y83.2 Surgical operation with anastomosis, bypass or graft as the cause of abnormal reaction of the patient, or of later complication, without mention of misadventure at the time of the procedure
CPT/HCPCS: 36415; 36569; 71045; 80048; 80053; 80061; 82550; 82947; 83605; 83735; 83880; 84100; 84484; 85025; 86850; 86900; 86901; 93306; 97110; 97161; 97530; J1250; J1644; J1650; J1815; J7030; J7060; P9016

== ENCOUNTER 2020-01-24 11:55 | Inpatient (IN) | payer OTHER, MEDICARE ==
--- OUTSIDE RECORDS SUMMARY | 2020-01-24 16:33 | XMS REPORT ---
:1945 [facility] Address [address] [place] [address] Dr. Bell [address] [place] [id number] Care Team Providers Name Role Phone Unavailable Unavailable Unavailable Problems This patient has no known problems. Allergies, Adverse Reactions, Alerts This patient has no known allergies or adverse reactions. Medications This patient has no known medications.
[2020-01-24] MEDS ORDERED: GLUCAGON 1 MG/VIAL IM PRN ×2 (17:24→19:44)
[2020-01-24] MEDS ORDERED: D50W 25 GM/50 ML SYRINGE/VIAL IV PRN ×2 (17:24→19:44)
[2020-01-24 17:29] LABS: Urine Appearance CLEAR; Urine Bilirubin NEGATIVE (NEG); Urine Blood TRACE (NEG); Urine Color YELLOW; Urine Glucose 1+ (NEG); Urine Protein NEGATIVE (NEG)
[2020-01-24 17:45] LABS: Urine Bacteria <20 /HPF (NONE SEEN); Urine Culture Reflex Order NOT NEEDED; Urine Mucus 1+ /HPF (NONE SEEN)
[2020-01-24] MEDS ORDERED: HEPARIN 5000 UNIT/ML 1 ML VIAL SQ SCH (20:00)
[2020-01-24] MEDS ORDERED: NYSTATIN OINT 15 GM TUBE TOP SCH (20:00)
[2020-01-24] MEDS: INSULIN GLARGINE 100 UNITS/ML SQ SCH (21:14)
[2020-01-24] MEDS: gemfibroziL 600 MG TAB PO SCH (21:14)
[2020-01-24] MEDS: ATORVASTATIN 20 MG TAB PO SCH (21:15)
[2020-01-24] MEDS: carvediloL 6.25 MG TAB PO SCH (21:15)
[2020-01-24] MEDS: INSULIN -REGULAR HUMAN 50 UNIT/0.5 ML ML SQ SCH (22:04)
[2020-01-24] MEDS ORDERED: INSULIN -REGULAR HUMAN 50 UNIT/0.5 ML ML ONE (22:07)
[2020-01-25 06:00] LABS: Absolute Lymphocytes (CBC) 1.1 K/uL (0.7-4.9); Basophils % 0.7 % (0-1.3); Hematocrit 27.2 % (39.6-49.0); Lymphocytes % 13.7 % (15.3-44.8); MPV 6.6 fL (7.6-11.3); RBC Red Blood Cell Count 2.99 M/uL (4.33-5.43)
[2020-01-25 06:22] LABS: Albumin 2.4 g/dL (3.4-5.0); Magnesium 1.9 mg/dL (1.8-2.4); Prealbumin 11.2 mg/dL (20-40)
[2020-01-25] MEDS: INSULIN -REGULAR HUMAN 50 UNIT/0.5 ML ML SQ SCH ×4 (07:30→20:20)
[2020-01-25] MEDS: NYSTATIN OINT 15 GM TUBE TOP SCH ×2 (08:00→20:17)
[2020-01-25] MEDS: carvediloL 6.25 MG TAB PO SCH (08:00)
[2020-01-25] MEDS ORDERED: TAMSULOSIN 0.4 MG SR CAP PO SCH (08:00)
[2020-01-25] MEDS ORDERED: ALBUTEROL 2.5 MG/3 ML NEB SOL NEB SCH (08:00)
[2020-01-25] MEDS ORDERED: FENOFIBRATE 160 MG TAB PO SCH (08:00)
[2020-01-25] MEDS ORDERED: GLIPIZIDE S.A. 5 MG TAB PO SCH (08:00)
[2020-01-25] MEDS: INSULIN GLARGINE 100 UNITS/ML SQ SCH ×2 (09:06→20:19)
[2020-01-25] MEDS: gemfibroziL 600 MG TAB PO SCH ×2 (09:07→20:18)
[2020-01-25] MEDS: TAMSULOSIN 0.4 MG SR CAP PO SCH ×2 (09:10→20:18)
[2020-01-25] MEDS: FUROSEMIDE 20 MG TABLET PO SCH (09:10)
[2020-01-25] MEDS: FE SULF/FA/VIT B COMP & C TAB PO SCH (09:10)
[2020-01-25] MEDS: ASPIRIN EC 81 MG TAB PO SCH (09:11)
[2020-01-25] MEDS: CLOPIDOGREL 75 MG TABLET PO SCH (09:11)
[2020-01-25] MEDS: FINASTERIDE 5 MG TAB PO SCH (09:11)
[2020-01-25] MEDS: ACETAMINOPHEN 325 MG TABLET PO PRN ×2 (09:11→20:18)
[2020-01-25] MEDS: FERROUS SULFATE 325 MG TAB PO SCH (09:11)
[2020-01-25] MEDS: PANTOPRAZOLE 40MG TABLET PO SCH (09:12)
[2020-01-25] MEDS: METFORMIN HCL 500 MG TAB PO SCH ×2 (09:12→17:39)
[2020-01-25] MEDS ORDERED: ALBUTEROL 2.5 MG/3 ML NEB SOL NEB PRN ×2 (09:39→15:00)
--- NOTE | 2020-01-25 14:52 | FAST ---
SHIFT START DATE/TIME: 01/25/2020 07:00 (CDT) SHIFT END DATE/TIME: 01/25/2020 19:00 (CDT) NAME JUAN DIEGO OLIVEIRA DATE OF : 1945 DATE OF ADMISSION: 01/24/2020 16:32 (CDT) PHONE: AGE: 74 N# [id number] GENDER: Male ENCOUNTER PHYSICIAN: Dr. Eduardo Bajwa M.D. ADMISSION DIAGNOSIS: - Cardiac 09 - Cardiac Disorders () CABG. EATING: EATING - STEP 1: Does the patient complete the activity by him/herself with no assistance (physical, verbal/nonverbal cueing, setup/clean-up)? No. EATING - STEP 2: Does the patient need only setup/clean-up assistance from one helper? Yes. 1. [id number] ADMISSION PERFORMANCE: Setup or clean-up assistance CODE: 05 ORAL HYGIENE: ORAL HYGIENE - STEP 1: Does the patient complete the activity by him/herself with no assistance (physical, verbal/nonverbal cueing, setup/clean-up)? No. ORAL HYGIENE - STEP 2: Does the patient need only setup/clean-up assistance from one helper? Yes. 1. [id number] ADMISSION PERFORMANCE: Setup or clean-up assistance CODE: 05 TOILETING HYGIENE: TOILETING HYGIENE - STEP 1: Does the patient complete the activity by him/herself with no assistance (physical, verbal/nonverbal cueing, setup/clean-up)? No. TOILETING HYGIENE - STEP 2: Does the patient need only setup/clean-up assistance from one helper? Yes. 1. [id number] ADMISSION PERFORMANCE: Setup or clean-up assistance CODE: 05 BATHING: Not assessed/no information CODE: - DRESSING - UPPER BODY: DRESSING - UPPER BODY - STEP 1: Does the patient complete the activity by him/herself with no assistance (physical, verbal/nonverbal cueing, setup/clean-up)? No. DRESSING - UPPER BODY - STEP 2: Does the patient need only setup/clean-up assistance from one helper? No. DRESSING - UPPER BODY - STEP 3: Does the patient need only verbal/nonverbal cueing or touching/steadying/contact guard assistance fro m one helper? Yes. 1. [id number] ADMISSION PERFORMANCE: Supervision or touching assistance CODE: 04 DRESSING - LOWER BODY: DRESSING - LOWER BODY - STEP 1: Does the patient complete the activity by him/herself with no assistance (physical, verbal/nonverbal cueing, setup/clean-up)? No. DRESSING - LOWER BODY - STEP 2: Does the patient need only setup/clean-up assistance from one helper? No. DRESSING - LOWER BODY - STEP 3: Does the patient need only verbal/nonverbal cueing or touching/steadying/contact guard assistance fro m one helper? No. DRESSING - LOWER BODY - STEP 4: Does the patient need physical assistance - for example lifting or trunk support from one helper - wi th the helper providing less than half of the effort? No. DRESSING - LOWER BODY - STEP 5: Does the patient need physical assistance - for example lifting or trunk support from one helper - wi th the helper providing more than half of the effort? Yes. 1. [id number] ADMISSION PERFORMANCE: Substantial/maximal assistance CODE: 02 PUTTING ON/TAKING OFF FOOTWEAR: FOOTWEAR - STEP 1: Does the patient complete the activity by him/herself with no assistance (physical, verbal/nonverbal cueing, setup/clean-up)? No. FOOTWEAR - STEP 2: Does the patient need only setup/clean-up assistance from one helper? No. FOOTWEAR - STEP 3: Does the patient need only verbal/nonverbal cueing or touching/steadying/contact guard assistance fro m one helper? No. FOOTWEAR - STEP 4: Does the patient need physical assistance - for example lifting or trunk support from one helper - wi th the helper providing less than half of the effort? No. FOOTWEAR - STEP 5: Does the patient need physical assistance - for example lifting or trunk support from one helper - wi th the helper providing more than half of the effort? Yes. 1. [id number] ADMISSION PERFORMANCE: Substantial/maximal assistance CODE: 02 DOES THE PATIENT USE A WHEELCHAIR/SCOOTER? CODE: EXPR INDICATE THE TYPE OF WHEELCHAIR/SCOOTER USED: CODE: EXPR INDICATE THE TYPE OF WHEELCHAIR/SCOOTER USED: CODE: EXPR BLADDER AND BOWEL: H350. BLADDER CONTINENCE (3-DAY ASSESSMENT PERIOD): Always continent (no documented incontinence) CODE: 0 H400. BOWEL CONTINENCE (3-DAY ASSESSMENT PERIOD): Always continent CODE: 0 SIGNATURE PANEL: The following modified sections: 1. [id number] Admission Performance, 1. [id number] Admission Performance, 1. [id number] Admission Performance, 1. MF0380l Admission Performance, 1. [id number] Admission Performance, 1. [id number] Admission Performance, H350. Bladder Continence (3-day assessment period), H400. Bowel Co ntinence (3-day assessment period) were [electronically] signed by Messi Neri.N.Barak on FriJan 25 2020 14:51:42 T-0500 (Central Daylight Time)
[2020-01-25] MEDS ORDERED: ENOXAPARIN 30 MG/0.3 ML SQ SCH ×2 (17:00)
[2020-01-25] MEDS: ENOXAPARIN 40 MG/0.4 ML SQ SCH (17:35)
--- NOTE | 2020-01-25 17:37 | R.HP ---
FACILITY: [facility] ENCOUNTER DATE AND TIME: 01/25/2020 17:15 (CDT) MR#: [id number] NAME JUAN DIEGO OLIVEIRA ADDRESS: [address] [place] [address] CITY: [place]IP [address] PHONE: DATE OF : 1945 AGE: 74 SSN# [id number] GENDER: Male DEXTERITY Right-handed MARITAL STATUS RACE White PRE-HOSPITAL LIVING SETTING 01 - Home (private home/apt. board/care, assisted living, custodial, transitional living) PRE-HOSPITAL LIVING WITH Family/Relatives ENCOUNTER PHYSICIAN: Dr. Eduardo Bajwa M.D. REFERRING DOCTOR: Dr. Jordan DATE OF ADMISSION: 01/24/2020 16:32 (CDT) REFERRING FACILITY [facility] HOME TYPE AND DETAILS: Type of home: single family house # of levels in the residence: 1 # of steps within the residence: 0 # of steps to enter the residence: 0 ONSET DATE: 01/21/2020 PRIMARY DIAGNOSIS-RELATED SURGERIES: BLADDER BIOPSY CHOLECYSTECTOMY TONSILLECTOMY HISTORY OF PRESENT ILLNESS (HPI): Pt. is a 74 yo Right-handed white male. On 01/21/2020 he was admitted to [facility] with diagnosis CABG. His impairment category is Cardiac 09 - Cardiac Disorders (09). Pre-morbidly, Pt. was independent/mod-I in Endurance, Self-Care, Locomotion, and Transfers Control; a nd he had good Safety Awareness, Balance, Communication, Endurance, Social Cognition, and Sphincter C ontrol. Currently, he has deficits of Endurance, Self-Care, Transfers Control, Safety Awareness, and Locomoti on. Pt. is now referred to [facility] for acute in-patient rehabilitation in order to maximize patient's functional independence in activities of daily living, strength, ROM, and mobi lity. Patient has realistic goal of being discharged at assistance level 6-Steffany to reside at Home with Fam amrik/Relatives. MEDICATION ALLERGIES: CIPROFLOXACIN PEN (PENICILLINS) ENVIRONMENTAL ALLERGIES: - Substance Allergies None Known - Other Allergies None Known PAST MEDICAL HISTORY: CANCER DIABETES MELLITUS HYPERTENSION PAST SURGICAL HISTORY: BLADDER BIOPSY CHOLECYSTECTOMY TONSILLECTOMY FAMILY HISTORY: Family history is not contributory. SOCIAL HISTORY: - Home Living Family/Relatives REVIEW OF SYSTEMS: - Gen No Chills Fatigue No Fever - Eyes No Double Vision No itchiness - ENMT No Difficulty Swallowing - CVS Chest Discomfort No Chest Pain Fatigue No Weight Gain - Resp No Cough Shortness of Breath - GI Continent No Abdominal Pain No Constipation No Diarrhea - Continent No Kidney Pain No Painful Urination No Urinary Urgency - MSK Joint Pain Muscle Cramps No Stiffness - Skin No Itching No Rash No Suspicious Lesions - Neuro Coordination Difficulty No Difficulty with Concentration No Memory Loss No Seizures Weakness - Psych No Anxiety No Depression No HIV Exposure No Persistent Infections No Seasonal Allergies - Endo No Cold/Heat Intolerance No Excessive Hunger No Excessive Thirst No Excessive Urination PHYSICAL EXAM - Gen Alert and awake Sitting in chair No apparent distress Oriented to: person, time, and place - Skin No skin breakdown. Normacephalic - Eyes No abnormalities - ENMT No abnormalities - Neck No abnormalities - CVS RRR - Chest Mildly decreased breath sounds bilaterally. - Resp Clear to auscultation - Abd Soft - GI Non distended Deferred - No abnormalities - Ext Mild bilateral lower extremity edema. - MSK 4+/5 weakness in both lower extremities. - Neuro No focal deficits - Psych No abnormalities VITAL SIGNS Temperature: 97 F SBP/DBP: 169/75 Pulse: 93 Resp: 18 NURSING: - Shower allowing shower ACTIVITIES OOB only with supervision QI SCORES: - Self-Care A. Eating 06-Independent B. Oral hygiene 01-Dependent C. Toileting hygiene 02-Substantial/maximal assistance E. Shower/bathe self 02-Substantial/maximal assistance F. Upper body dressing 03-Partial/moderate assistance G. Lower body dressing 88-Not attempted due to medical condition or safety concerns H. Putting on/taking off footwear 03-Partial/moderate assistance - Mobility A. Roll left and right 04-Supervision or touching assistance B. Sit to lying 03-Partial/moderate assistance C. Lying to sitting on side of bed 03-Partial/moderate assistance D. Sit to stand 02-Substantial/maximal assistance E. Chair/iin-nq-vpxny transfer 02-Substantial/maximal assistance F. Toilet transfer 02-Substantial/maximal assistance G. Car transfer 88-Not attempted due to medical condition or safety concerns I. Walk 10 feet 88-Not attempted due to medical condition or safety concerns J. Walk 50 feet with two turns 88-Not attempted due to medical condition or safety concerns K. Walk 150 feet 88-Not attempted due to medical condition or safety concerns L. Walking 10 feet on uneven surfaces 88-Not attempted due to medical condition or safety concerns M. 1 step (curb) 88-Not attempted due to medical condition or safety concerns N. 4 steps 88-Not attempted due to medical condition or safety concerns O. 12 steps 88-Not attempted due to medical condition or safety concerns P. Picking up object 06-Independent R. Wheel 50 feet with two turns 88-Not attempted due to medical condition or safety concerns S. Wheel 150 feet 88-Not attempted due to medical condition or safety concerns - Bladder and Bowel Bladder continence 0-Always continent Bowel continence 0-Always continent - Endurance Fair - Balance Poor - Safety Awareness Fair CURRENT FUNC. DEFICITS: Mobility, Endurance, Balance, Safety Awareness, and Self-Care MEDICATIONS: - Other See attached MAR (Medication Administration Record) ASSESSMENT: Pt. is a 74 yo Right-handed white male.On 01/21/2020 he was admitted to [facility] with diag nosis CABG.His impairment category is Cardiac 09 - Cardiac Disorders ().Pre-morbidly, Pt. was inde pendent/mod-I in Endurance, Self-Care, Locomotion, and Transfers Control; and he had good Safety Awar eness, Balance, Communication, Endurance, Social Cognition, and Sphincter Control.Currently, he has d eficits of Endurance, Self-Care, Transfers Control, Safety Awareness, and Locomotion.Pt. is now refer red to [facility] for acute in-patient rehabilitation in order to maximize pat ient's functional independence in activities of daily living, strength, ROM, and mobility.- Rehab Goa l Patient has realistic goal of being discharged at assistance level 6-Steffany to reside at Home with Fam amrik/Relatives. - Physical Therapy Gait dysfunction - to improve, our physical therapists will perform initial evaluation of pt's status upon admission and devise an individualized program for Gait Training, and Wheel Chair mobility Inability to transfer - to improve, our physical therapists will perform initial evaluation of pt's s tatus upon admission and devise an individualized program for Bed mobility Need for home safety evaluation - to improve, our physical therapists will perform initial evaluation of pt's status upon admission and devise an individualized program for Home Evaluation Need in caregiver upon discharge - to improve, our physical therapists will perform initial evaluatio n of pt's status upon admission and devise an individualized program for Caregiver Training Edema - to improve, our physical therapists will perform initial evaluation of pt's status upon admi ssion and devise an individualized program for Elevation Training, and Lymphedema Therapy New precaution - to improve, our physical therapists will perform initial evaluation of pt's status u francine admission and devise an individualized program for Patient precaution education Poor endurance - to improve, our physical therapists will perform initial evaluation of pt's status u francine admission and devise an individualized program for Endurance Training Weakness - to improve, our physical therapists will perform initial evaluation of pt's status upon ad mission and devise an individualized program for Aquatic Therapy, Neuromuscular Reeducation, and Stre ngthening Achieving independence - to improve, our physical therapists will perform initial evaluation of pt's status upon admission and devise an individualized program for Community Reintegration Activities - Occupational Therapy ADL deficits - to improve, our occupation therapists will perform initial evaluation of pt's status u francine admission and devise an individualized program for Bathing, Bed mobility, Community Reintegration , Cooking, Dressing, Eating, Fine Motor Skills, Grooming, Homemaking, Kitchen Mobility, Laundry, Patricia ent Education, Safety Awareness, Splinting - Positioning, Transfers(Toilet, Tub, Shower), and Wheel C hair Management Need for transitional care liaison - to improve, our occupation therapists will perform initial evaluation of pt's s tatus upon admission and devise an individualized program for Caregiver Training Weakness - to improve, our occupation therapists will perform initial evaluation of pt's status upon admission and devise an individualized program for Aquatic Therapy, Balance, Endurance, UE ROM, and U E strengthening MEDICAL PLAN: - Diet Type Start Regular - Diet - Liquid Texture Start Regular - Tube Feed Start N/A - Other See attached MAR (Medication Administration Record) - Diet - Solid Texture Regular - Shower shower DISCHARGE PLAN: - Estimated Length of Stay (days) 14. - Consensus on plan Discharge plan has been discussed with primary caregiver. Patient/Family is in agreement with the melly n. Primary caregiver is in agreement with the plan. - Patient/Family Goals Return home with assistance. - Planned Living Setting Upon Discharge Home, to live with Family/Relatives. SIGNATURE PANEL: (CDT)
[2020-01-25] MEDS: GLIPIZIDE S.A. 5 MG TAB PO SCH (17:39)
--- NOTE | 2020-01-25 17:39 | PAPE ---
PATIENT: [facility] MR# [id number] REFERRING DOCTOR Dr. Jordan EVALUATION DATE AND TIME 01/25/2020 17:37 (CDT) NAME JUAN DIEGO OLIVEIRA DATE OF 1945 AGE 74 PHONE SSN# [id number] GENDER male EVALUATING PHYSICIAN Dr. Eduardo Bajwa M.D. ADMISSION DIAGNOSIS: CABG ONSET DATE 01/21/2020 POST-ADMISSION FUNCTIONAL/MEDICAL STATUS: - Bladder Same accident frequency: Ind - No accidents in the past 7 days - Bowel Same accident frequency: Ind - No accidents in the past 7 days - Walking Same score based on distance walked: 0(N/A) - Wheelchair Same score based on distance traveled: 1(<=50ft) STATUS CHANGE EVALUATION: No change in Functional or Medical Status is identified compared with Pre-Admission screening. PATIENT NEEDS CLOSE MEDICAL SUPERVISION BY A REHABILITATION PHYSICIAN FOR: Coordination of Treatment Team Post-Op Complications Wound Care PATIENT REQUIRES 24X7 REHAB NURSING FOR MEDICAL AND FUNCTIONAL MGT. OF THE FOLLOWING DEFICITS: Disease Management Medication Management Patient/Family Education Providing Safe Environment Skin Integrity PATIENT REQUIRES INTENSIVE, COORDINATED INTERDISCIPLINARY APPROACH TO REHAB: Arranging Home Equipment/Services Discharge Planning Family Intervention/Training Data Processing Equipment Repairer/Case Management LIST OF IDENTIFIED AND POTENTIAL PROBLEMS: Alteration in leisure activities Bladder, Incontinence Bowel, Incontinence Infection, Actual or Potential Mobility Impaired Pain, Alteration in Comfort Self Care Deficit Skin Integrity, Actual or Potential Urinary Tract Infection (UTI), Actual or Potential PATIENT COULD BE AT RISK FOR COMPLICATIONS FROM ADVERSE MEDICAL CONDITIONS DUE TO HIS/HER COMORBIDITI ES AND THE RIGORS OF THE INTENSIVE REHABILLITATION PROGRAM. METHODS OR INTERVENTIONS TO AVOID COMPLIC ATIONS INCLUDE: - Bleeding Assess lab values and manage abnormalities. Nursing to teach precautions for anti-coagulation therapy . Wound to be assessed every shift. - Infection Clinical staff to assess and manage the signs and symptoms of infection including fever, redness, war mth, etc. - Urinary Tract Infection - Falls Patient will be evaluated for Fall Precautions and will be placed on Fall Precautions as indicated pe r protocol. - Skin Breakdown Nursing will assess skin daily using assessment tool and will place on Skin Breakdown Precautions as indicated per protocol. - Pain Clinical staff may employ non-medication methods such as massage, distraction, decrease stimulus, etc . as needed. Clinical staff will assess patient's pain level every shift per protocol to assess and e nsure pain management effectiveness. Medications will be given and the pain level re-assessed. PRELIMINARY PLAN OF CARE: - Physical Therapy Patient needs Physical Therapy for a daily minimum of 1.5 hours at least 5 out of 7 days, to improve: Mobility, Strengthening, Transfers, Stretching, ROM, Endurance, Ability to manage stairs, Gait, and Balance. - Speech Therapy Patient needs Speech Therapy for a daily minimum of 0.5 hours at least 5 out of 7 days, to improve: S wallowing, Cognition, Language Skills, and Compensatory Strategies. - Rehabilitation Nursing Patient requires 24x7 Rehabilitation Nursing for: Pain Issues, Identifying and preventing risk factor s, Monitoring and reporting current medical conditions, Assisting with ambulation and transfer, Donnie ting with all ADL-s, Teaching patients about disease process and medications, Family teaching, Provid ing safe environment, Bowel and Bladder Issues, Skin Integrity, and Medication Management. Patient needs Data Processing Equipment Repairer and/or Case Management for: Discharge Planning, Arranging Home Equipmen t or Services, and Family Interventions. - Dietary and Nutrition Services Patient needs Dietary and Nutrition Services for: Adequate Nutrition, Nutritional Supplements, and Nu tritional Education. - Occupational Therapy Patient needs Occupational Therapy for a daily minimum of 1.5 hours at least 5 out of 7 days, to impr ove Activities of Daily Living, including: Eating, Grooming, Bathing, Dressing, Toileting, Toilet Tra nsfers, Community Reintegration, Higher functional activities, Adaptive Equipment, Splinting, Househo ld Tasks, and Other activities as determined. QI SCORES: - Self-Care A. Eating 06-Independent B. Oral hygiene 01-Dependent C. Toileting hygiene 02-Substantial/maximal assistance E. Shower/bathe self 02-Substantial/maximal assistance F. Upper body dressing 03-Partial/moderate assistance G. Lower body dressing 88-Not attempted due to medical condition or safety concerns H. Putting on/taking off footwear 03-Partial/moderate assistance - Mobility A. Roll left and right 04-Supervision or touching assistance B. Sit to lying 03-Partial/moderate assistance C. Lying to sitting on side of bed 03-Partial/moderate assistance D. Sit to stand 02-Substantial/maximal assistance E. Chair/utd-rx-[id number] transfer 02-Substantial/maximal assistance F. Toilet transfer 02-Substantial/maximal assistance G. Car transfer 88-Not attempted due to medical condition or safety concerns I. Walk 10 feet 88-Not attempted due to medical condition or safety concerns J. Walk 50 feet with two turns 88-Not attempted due to medical condition or safety concerns K. Walk 150 feet 88-Not attempted due to medical condition or safety concerns L. Walking 10 feet on uneven surfaces 88-Not attempted due to medical condition or safety concerns M. 1 step (curb) 88-Not attempted due to medical condition or safety concerns N. 4 steps 88-Not attempted due to medical condition or safety concerns O. 12 steps 88-Not attempted due to medical condition or safety concerns P. Picking up object 06-Independent R. Wheel 50 feet with two turns 88-Not attempted due to medical condition or safety concerns S. Wheel 150 feet 88-Not attempted due to medical condition or safety concerns - Bladder and Bowel Bladder continence 0-Always continent Bowel continence 0-Always continent - Endurance Fair - Balance Poor - Safety Awareness Fair POTENTIAL FUNCTIONAL GOALS FOR PATIENT TO ACHIEVE BY DISCHARGE: - Safety Precaution Patient will remain free from falls or injury at time of discharge. - Bed Mobility Patient will perform bed mobility at 4-Arina level of assistance. - Transfers Patient will complete transfers from bed to chair at 4-Arina level of assistance. - Mobility Patient will ambulate 150 ft with 4-Arina level of assistance with RW. PATIENT REHAB POTENTIAL Stephenie OLIVEIRA is able and expected to receive 3 hours of individualized therapy daily on at least 5 of e very 7 days Stephenie OLIVEIRA's prognosis for significant practical improvement within a reasonable period of time appea rs Good Expected level of measurable improvement will be of a practical value to Stehpenie OLIVEIRA's functional capa city or adaptations to impairments Has a viable Discharge Plan Medically appropriate; condition is sufficiently stable to participate in intensive rehab program DISCHARGE PLAN: - Estimated Length of Stay (days) 14. - Consensus on plan Discharge plan has been discussed with primary caregiver. Patient/Family is in agreement with the melly n. Primary caregiver is in agreement with the plan. - Patient/Family Goals Return home with assistance. - Planned Living Setting Upon Discharge Home, to live with Family/Relatives. CONCLUSION ON REHABILITATION NECESSITY: I have evaluated patient's pre-admission functional status and, comparing it to the patient's post-ad mission functional status now, I conclude that the pre-admission assessment was accurate. Patient's c ondition on admission supports the medical necessity of admission to [facility]. It is safe to proceed with patient's therapy program. SIGNATURE PANEL: (CDT)
[2020-01-25] MEDS: carvediloL 3.125 MG TAB PO SCH (19:55)
[2020-01-25] MEDS: ATORVASTATIN 20 MG TAB PO SCH (20:18)
[2020-01-25] MEDS: MELATONIN 3 MG TABLET PO SCH (20:18)
[2020-01-26] MEDS: INSULIN -REGULAR HUMAN 50 UNIT/0.5 ML ML SQ SCH ×4 (07:30→21:00)
[2020-01-26] MEDS: carvediloL 3.125 MG TAB PO SCH ×2 (08:00→21:15)
[2020-01-26] MEDS: NYSTATIN OINT 15 GM TUBE TOP SCH ×2 (08:00→21:18)
[2020-01-26] MEDS: SODIUM CHLORIDE 0.9% 10ML INJ IV SCH ×2 (08:00→21:18)
[2020-01-26] MEDS: CLOPIDOGREL 75 MG TABLET PO SCH (08:11)
[2020-01-26] MEDS: TAMSULOSIN 0.4 MG SR CAP PO SCH ×2 (08:11→21:16)
[2020-01-26] MEDS: FUROSEMIDE 20 MG TABLET PO SCH (08:11)
[2020-01-26] MEDS: FINASTERIDE 5 MG TAB PO SCH (08:12)
[2020-01-26] MEDS: FERROUS SULFATE 325 MG TAB PO SCH (08:12)
[2020-01-26] MEDS: ASPIRIN EC 81 MG TAB PO SCH (08:12)
[2020-01-26] MEDS: METFORMIN HCL 500 MG TAB PO SCH ×2 (08:12→17:12)
[2020-01-26] MEDS: ACETAMINOPHEN 325 MG TABLET PO PRN ×2 (08:13→21:18)
[2020-01-26] MEDS: PANTOPRAZOLE 40MG TABLET PO SCH (08:13)
[2020-01-26] MEDS: INSULIN GLARGINE 100 UNITS/ML SQ SCH ×2 (08:15→21:16)
[2020-01-26] MEDS: MEDIHONEY 44 ML TOPICAL TUBE TOP SCH (08:17)
[2020-01-26] MEDS: GLIPIZIDE S.A. 5 MG TAB PO SCH ×2 (08:17→17:12)
[2020-01-26] MEDS: gemfibroziL 600 MG TAB PO SCH ×2 (08:17→21:18)
[2020-01-26] MEDS: FE SULF/FA/VIT B COMP & C TAB PO SCH (08:17)
[2020-01-26] MEDS ORDERED: LOPERAMIDE HCL 2 MG CAPSULE PO PRN (13:31)
[2020-01-26] MEDS: ENOXAPARIN 40 MG/0.4 ML SQ SCH (17:12)
--- NOTE | 2020-01-26 18:04 | R.PN ---
ENCOUNTER DATE AND TIME: 01/26/2020 17:53 (CDT) NAME JUAN DIEGO OLIVEIRA DATE OF : 1945 DATE OF ADMISSION: 01/24/2020 16:32 (CDT) CABGCHIEF COMPLAINT: S/P CABG for CAD SUBJECTIVE: Pt denied any depression. Pt denied any Shortness of Breath. WBC 8.1, Hgb 9.2, glucose 121 to 183, UA 1+ esterase bacteria < 20. Ambulated 20', 15' and 20' with minimum assistance using a rolling waker. VITAL SIGNS Temperature: 97 F SBP/DBP: 124/59 Pulse: 88 Resp: 16 MEDICATION ALLERGIES: CIPROFLOXACIN PEN (PENICILLINS) ENVIRONMENTAL ALLERGIES: - Substance Allergies None Known - Other Allergies None Known NURSING: - Shower allowing shower ACTIVITIES OOB only with supervision THERAPIES: - Dietary and Nutrition Adequate Nutrition. Nutritional Education. Nutritional Supplements. PHYSICAL EXAM - Gen Alert and awake Sitting in chair No apparent distress Oriented to: person, time, and place - Skin No skin breakdown. Normacephalic - Eyes No abnormalities - ENMT No abnormalities - Neck No abnormalities - CVS RRR - Chest Mildly decreased breath sounds bilaterally. - Resp Clear to auscultation - Abd Soft - GI Non distended Deferred - No abnormalities - Ext Mild bilateral lower extremity edema. - MSK 4+/5 weakness in both lower extremities. - Neuro No focal deficits - Psych No abnormalities ASSESSMENT: Pt. is a 74 yo Right-handed white male.On 01/21/2020 he was admitted to [facility] with diag nosis CABG.His impairment category is Cardiac 09 - Cardiac Disorders (09).Pre-morbidly, Pt. was inde pendent/mod-I in Endurance, Self-Care, Locomotion, and Transfers Control; and he had good Safety Awar eness, Balance, Communication, Endurance, Social Cognition, and Sphincter Control.Currently, he has d eficits of Endurance, Self-Care, Transfers Control, Safety Awareness, and Locomotion.Pt. is now refer red to [facility] for acute in-patient rehabilitation in order to maximize pat ient's functional independence in activities of daily living, strength, ROM, and mobility.- Rehab Goa l Patient has realistic goal of being discharged at assistance level 6-Steffany to reside at Home with Fam amrik/Relatives. MDM/PLAN: - Physical Therapy Gait dysfunction - to improve, our physical therapists will perform initial evaluation of pt's statu s upon admission and devise an individualized program for Gait Training, and Wheel Chair mobility Inability to transfer - to improve, our physical therapists will perform initial evaluation of pt's status upon admission and devise an individualized program for Bed mobility Need for home safety evaluation - to improve, our physical therapists will perform initial evaluatio n of pt's status upon admission and devise an individualized program for Home Evaluation Need in caregiver upon discharge - to improve, our physical therapists will perform initial evaluati on of pt's status upon admission and devise an individualized program for Caregiver Training Edema - to improve, our physical therapists will perform initial evaluation of pt's status upon admis dean and devise an individualized program for Elevation Training, and Lymphedema Therapy New precaution - to improve, our physical therapists will perform initial evaluation of pt's status upon admission and devise an individualized program for Patient precaution education Poor endurance - to improve, our physical therapists will perform initial evaluation of pt's status upon admission and devise an individualized program for Endurance Training Weakness - to improve, our physical therapists will perform initial evaluation of pt's status upon a dmission and devise an individualized program for Aquatic Therapy, Neuromuscular Reeducation, and Str engthening Achieving independence - to improve, our physical therapists will perform initial evaluation of pt's status upon admission and devise an individualized program for Community Reintegration Activities - Occupational Therapy ADL deficits - to improve, our occupation therapists will perform initial evaluation of pt's status upon admission and devise an individualized program for Bathing, Bed mobility, Community Reintegratio n, Cooking, Dressing, Eating, Fine Motor Skills, Grooming, Homemaking, Kitchen Mobility, Laundry, Pat ient Education, Safety Awareness, Splinting - Positioning, Transfers(Toilet, Tub, Shower), and Wheel Chair Management Need for medical care administrator - to improve, our occupation therapists will perform initial evaluation of pt's status upon admission and devise an individualized program for Caregiver Training Weakness - to improve, our occupation therapists will perform initial evaluation of pt's status upon admission and devise an individualized program for Aquatic Therapy, Balance, Endurance, UE ROM, and UE strengthening - Other See attached MAR (Medication Administration Record) - Diet Type Continue Regular - Diet - Liquid Texture Continue Regular - Tube Feed Continue N/A - Diet - Solid Texture Continue Regular - Shower allowing shower FUNCTIONAL STATUS: UPDATED AT WEEKLY TEAM CONFERENCE - Bladder Same accident frequency: 7-Ind - No accidents in the past 7 days - Bowel Same accident frequency: 7-Ind - No accidents in the past 7 days - Walking Same score based on distance walked: 0(N/A) - Wheelchair Same score based on distance traveled: 1(<=50ft) FUNCTIONAL STATUS: - Self-Care A. Eating Ind B. Grooming Ind C. Bathing modA D. Dressing - Upper [place] E. Dressing - Lower modA F. Toileting Arina - Sphincter Control G. Bladder control Steffany H. Bowel control Steffany - Transfers Control I. Bed/Chair/Wheelchair modA J. Toilet modA K. Tub/Shower modA - Locomotion L. Walk/Wheelchair (B) modA M. Stairs ADNO - Communication N. Comprehension (B) Ind O. Expression (B) Ind - Social Cognition P. Social Interaction Ind Q. Problem Solving Ind R. Memory Ind - Endurance Fair - Balance Fair - Safety Awareness Good QI SCORES: - Self-Care A. Eating 06-Independent B. Oral hygiene 01-Dependent C. Toileting hygiene 02-Substantial/maximal assistance E. Shower/bathe self 02-Substantial/maximal assistance F. Upper body dressing 03-Partial/moderate assistance G. Lower body dressing 88-Not attempted due to medical condition or safety concerns H. Putting on/taking off footwear 03-Partial/moderate assistance - Mobility A. Roll left and right 04-Supervision or touching assistance B. Sit to lying 03-Partial/moderate assistance C. Lying to sitting on side of bed 03-Partial/moderate assistance D. Sit to stand 02-Substantial/maximal assistance E. Chair/omn-[id number] transfer 02-Substantial/maximal assistance F. Toilet transfer 02-Substantial/maximal assistance G. Car transfer 88-Not attempted due to medical condition or safety concerns I. Walk 10 feet 88-Not attempted due to medical condition or safety concerns J. Walk 50 feet with two turns 88-Not attempted due to medical condition or safety concerns K. Walk 150 feet 88-Not attempted due to medical condition or safety concerns L. Walking 10 feet on uneven surfaces 88-Not attempted due to medical condition or safety concerns M. 1 step (curb) 88-Not attempted due to medical condition or safety concerns N. 4 steps 88-Not attempted due to medical condition or safety concerns O. 12 steps 88-Not attempted due to medical condition or safety concerns P. Picking up object 06-Independent R. Wheel 50 feet with two turns 88-Not attempted due to medical condition or safety concerns S. Wheel 150 feet 88-Not attempted due to medical condition or safety concerns - Bladder and Bowel Bladder continence 0-Always continent Bowel continence 0-Always continent - Endurance Fair - Balance Poor - Safety Awareness Fair [facility] DEFICITS: Mobility, Endurance, Balance, Safety Awareness, and Self-Care SIGNATURE PANEL: (CDT)
[2020-01-26] MEDS: MELATONIN 3 MG TABLET PO SCH (21:18)
[2020-01-26] MEDS: ATORVASTATIN 20 MG TAB PO SCH (21:18)
[2020-01-27 07:04] LABS: Absolute Lymphocytes (CBC) 1.3 K/uL (0.7-4.9); Basophils % 1.2 % (0-1.3); Lymphocytes % 19.6 % (15.3-44.8); MPV 6.7 fL (7.6-11.3); RBC Red Blood Cell Count 3.16 M/uL (4.33-5.43)
[2020-01-27] MEDS: INSULIN -REGULAR HUMAN 50 UNIT/0.5 ML ML SQ SCH ×4 (07:30→21:00)
[2020-01-27 07:39] LABS: Albumin 2.6 g/dL (3.4-5.0); Bilirubin Total 0.7 mg/dL (0.2-1.0); Magnesium 1.8 mg/dL (1.8-2.4); Potassium 3.5 mmol/L (3.5-5.1); Prealbumin 13.3 mg/dL (20-40)
[2020-01-27] MEDS: SODIUM CHLORIDE 0.9% 10ML INJ IV SCH ×2 (08:00→21:14)
[2020-01-27] MEDS: carvediloL 3.125 MG TAB PO SCH ×2 (08:00→20:00)
[2020-01-27] MEDS: TAMSULOSIN 0.4 MG SR CAP PO SCH ×2 (08:10→21:13)
[2020-01-27] MEDS: ASPIRIN EC 81 MG TAB PO SCH (08:10)
[2020-01-27] MEDS: INSULIN GLARGINE 100 UNITS/ML SQ SCH ×2 (08:10→21:12)
[2020-01-27] MEDS: CLOPIDOGREL 75 MG TABLET PO SCH (08:10)
[2020-01-27] MEDS: METFORMIN HCL 500 MG TAB PO SCH ×2 (08:10→16:39)
[2020-01-27] MEDS: FE SULF/FA/VIT B COMP & C TAB PO SCH (08:10)
[2020-01-27] MEDS: PANTOPRAZOLE 40MG TABLET PO SCH (08:11)
[2020-01-27] MEDS: ACETAMINOPHEN 325 MG TABLET PO PRN ×3 (08:11→21:13)
[2020-01-27] MEDS: NYSTATIN OINT 15 GM TUBE TOP SCH ×2 (08:11→21:14)
[2020-01-27] MEDS: GLIPIZIDE S.A. 5 MG TAB PO SCH ×2 (08:11→16:39)
[2020-01-27] MEDS: MEDIHONEY 44 ML TOPICAL TUBE TOP SCH (08:11)
[2020-01-27] MEDS: gemfibroziL 600 MG TAB PO SCH ×2 (08:12→21:12)
[2020-01-27] MEDS: FUROSEMIDE 20 MG TABLET PO SCH (08:12)
[2020-01-27] MEDS: FINASTERIDE 5 MG TAB PO SCH (08:12)
[2020-01-27] MEDS: FERROUS SULFATE 325 MG TAB PO SCH (08:12)
[2020-01-27] MEDS: ENOXAPARIN 40 MG/0.4 ML SQ SCH (16:39)
--- NOTE | 2020-01-27 17:06 | R.PN ---
ENCOUNTER DATE AND TIME: 01/27/2020 17:01 (CDT) NAME JUAN DIEGO OLIVEIRA DATE OF : 1945 DATE OF ADMISSION: 01/24/2020 16:32 (CDT) CABGCHIEF COMPLAINT: S/P CABG for CAD SUBJECTIVE: Pt denied any depression. Pt denied any Shortness of Breath. WBC 6.4, Hgb 9.5, glucose 120 to 132, prealbumin 13.3, UA 1+ esterase bacteria < 20. Ambulated 20', 15' and 20' with minimum assistance using a rolling waker. VITAL SIGNS Temperature: 97 F SBP/DBP: 112/63 Pulse: 84 Resp: 18 MEDICATION ALLERGIES: CIPROFLOXACIN PEN (PENICILLINS) ENVIRONMENTAL ALLERGIES: - Substance Allergies None Known - Other Allergies None Known NURSING: - Shower allowing shower ACTIVITIES OOB only with supervision THERAPIES: - Dietary and Nutrition Adequate Nutrition. Nutritional Education. Nutritional Supplements. PHYSICAL EXAM - Gen Alert and awake Sitting in chair No apparent distress Oriented to: person, time, and place - Skin No skin breakdown. Normacephalic - Eyes No abnormalities - ENMT No abnormalities - Neck No abnormalities - CVS RRR - Chest Mildly decreased breath sounds bilaterally. - Resp Clear to auscultation - Abd Soft - GI Non distended Deferred - No abnormalities - Ext Mild bilateral lower extremity edema. - MSK 4+/5 weakness in both lower extremities. - Neuro No focal deficits - Psych No abnormalities ASSESSMENT: Pt. is a 74 yo Right-handed white male.On 01/21/2020 he was admitted to [facility] with diag nosis CABG.His impairment category is Cardiac 09 - Cardiac Disorders (09).Pre-morbidly, Pt. was inde pendent/mod-I in Endurance, Self-Care, Locomotion, and Transfers Control; and he had good Safety Awar eness, Balance, Communication, Endurance, Social Cognition, and Sphincter Control.Currently, he has d eficits of Endurance, Self-Care, Transfers Control, Safety Awareness, and Locomotion.Pt. is now refer red to [facility] for acute in-patient rehabilitation in order to maximize pat ient's functional independence in activities of daily living, strength, ROM, and mobility.- Rehab Goa l Patient has realistic goal of being discharged at assistance level 6-Steffany to reside at Home with Fam amrik/Relatives. MDM/PLAN: - Physical Therapy Gait dysfunction - to improve, our physical therapists will perform initial evaluation of pt's statu s upon admission and devise an individualized program for Gait Training, and Wheel Chair mobility Inability to transfer - to improve, our physical therapists will perform initial evaluation of pt's status upon admission and devise an individualized program for Bed mobility Need for home safety evaluation - to improve, our physical therapists will perform initial evaluatio n of pt's status upon admission and devise an individualized program for Home Evaluation Need in caregiver upon discharge - to improve, our physical therapists will perform initial evaluati on of pt's status upon admission and devise an individualized program for Caregiver Training Edema - to improve, our physical therapists will perform initial evaluation of pt's status upon admi ssion and devise an individualized program for Elevation Training, and Lymphedema Therapy New precaution - to improve, our physical therapists will perform initial evaluation of pt's status upon admission and devise an individualized program for Patient precaution education Poor endurance - to improve, our physical therapists will perform initial evaluation of pt's status upon admission and devise an individualized program for Endurance Training Weakness - to improve, our physical therapists will perform initial evaluation of pt's status upon a dmission and devise an individualized program for Aquatic Therapy, Neuromuscular Reeducation, and Str engthening Achieving independence - to improve, our physical therapists will perform initial evaluation of pt's status upon admission and devise an individualized program for Community Reintegration Activities - Occupational Therapy ADL deficits - to improve, our occupation therapists will perform initial evaluation of pt's status upon admission and devise an individualized program for Bathing, Bed mobility, Community Reintegratio n, Cooking, Dressing, Eating, Fine Motor Skills, Grooming, Homemaking, Kitchen Mobility, Laundry, Pat ient Education, Safety Awareness, Splinting - Positioning, Transfers(Toilet, Tub, Shower), and Wheel Chair Management Need for home care nurse - to improve, our occupation therapists will perform initial evaluation of pt's status upon admission and devise an individualized program for Caregiver Training Weakness - to improve, our occupation therapists will perform initial evaluation of pt's status upon admission and devise an individualized program for Aquatic Therapy, Balance, Endurance, UE ROM, and UE strengthening - Other See attached MAR (Medication Administration Record) - Diet Type Continue Regular - Diet - Liquid Texture Continue Regular - Tube Feed Continue N/A - Diet - Solid Texture Continue Regular - Shower allowing shower FUNCTIONAL STATUS: UPDATED AT WEEKLY TEAM CONFERENCE - Bladder Same accident frequency: 7-Ind - No accidents in the past 7 days - Bowel Same accident frequency: 7-Ind - No accidents in the past 7 days - Walking Same score based on distance walked: 0(N/A) - Wheelchair Same score based on distance traveled: 1(<=50ft) FUNCTIONAL STATUS: - Self-Care A. Eating Ind B. Grooming Ind C. Bathing modA D. Dressing - Upper [place] E. Dressing - Lower modA F. Toileting Arina - Sphincter Control G. Bladder control Steffany H. Bowel control Steffany - Transfers Control I. Bed/Chair/Wheelchair modA J. Toilet modA K. Tub/Shower modA - Locomotion L. Walk/Wheelchair (B) modA M. Stairs ADNO - Communication N. Comprehension (B) Ind O. Expression (B) Ind - Social Cognition P. Social Interaction Ind Q. Problem Solving Ind R. Memory Ind - Endurance Fair - Balance Fair - Safety Awareness Good QI SCORES: - Self-Care A. Eating 06-Independent B. Oral hygiene 01-Dependent C. Toileting hygiene 02-Substantial/maximal assistance E. Shower/bathe self 02-Substantial/maximal assistance F. Upper body dressing 03-Partial/moderate assistance G. Lower body dressing 88-Not attempted due to medical condition or safety concerns H. Putting on/taking off footwear 03-Partial/moderate assistance - Mobility A. Roll left and right 04-Supervision or touching assistance B. Sit to lying 03-Partial/moderate assistance C. Lying to sitting on side of bed 03-Partial/moderate assistance D. Sit to stand 02-Substantial/maximal assistance E. Chair/[id number]-[id number] transfer 02-Substantial/maximal assistance F. Toilet transfer 02-Substantial/maximal assistance G. Car transfer 88-Not attempted due to medical condition or safety concerns I. Walk 10 feet 88-Not attempted due to medical condition or safety concerns J. Walk 50 feet with two turns 88-Not attempted due to medical condition or safety concerns K. Walk 150 feet 88-Not attempted due to medical condition or safety concerns L. Walking 10 feet on uneven surfaces 88-Not attempted due to medical condition or safety concerns M. 1 step (curb) 88-Not attempted due to medical condition or safety concerns N. 4 steps 88-Not attempted due to medical condition or safety concerns O. 12 steps 88-Not attempted due to medical condition or safety concerns P. Picking up object 06-Independent R. Wheel 50 feet with two turns 88-Not attempted due to medical condition or safety concerns S. Wheel 150 feet 88-Not attempted due to medical condition or safety concerns - Bladder and Bowel Bladder continence 0-Always continent Bowel continence 0-Always continent - Endurance Fair - Balance Poor - Safety Awareness Fair [facility] DEFICITS: Mobility, Endurance, Balance, Safety Awareness, and Self-Care SIGNATURE PANEL: (CDT)
[2020-01-27] MEDS: ATORVASTATIN 20 MG TAB PO SCH (21:13)
[2020-01-27] MEDS: MELATONIN 3 MG TABLET PO SCH (21:13)
[2020-01-28] MEDS: INSULIN -REGULAR HUMAN 50 UNIT/0.5 ML ML SQ SCH ×4 (07:15→20:00)
[2020-01-28] MEDS: PANTOPRAZOLE 40MG TABLET PO SCH (07:17)
[2020-01-28] MEDS: ACETAMINOPHEN 325 MG TABLET PO PRN (07:17)
[2020-01-28] MEDS: SODIUM CHLORIDE 0.9% 10ML INJ IV SCH ×2 (07:20→19:59)
[2020-01-28] MEDS: GLIPIZIDE S.A. 5 MG TAB PO SCH ×2 (07:21→17:00)
[2020-01-28] MEDS: gemfibroziL 600 MG TAB PO SCH ×2 (07:21→20:00)
[2020-01-28] MEDS: ASPIRIN EC 81 MG TAB PO SCH (07:21)
[2020-01-28] MEDS: FERROUS SULFATE 325 MG TAB PO SCH (07:21)
[2020-01-28] MEDS: FE SULF/FA/VIT B COMP & C TAB PO SCH (07:22)
[2020-01-28] MEDS: carvediloL 3.125 MG TAB PO SCH ×2 (07:22→19:55)
[2020-01-28] MEDS: FINASTERIDE 5 MG TAB PO SCH (07:22)
[2020-01-28] MEDS: TAMSULOSIN 0.4 MG SR CAP PO SCH ×2 (07:22→19:56)
[2020-01-28] MEDS: FUROSEMIDE 20 MG TABLET PO SCH (07:23)
[2020-01-28] MEDS: CLOPIDOGREL 75 MG TABLET PO SCH (07:23)
[2020-01-28] MEDS: METFORMIN HCL 500 MG TAB PO SCH ×2 (07:23→17:00)
[2020-01-28] MEDS: INSULIN GLARGINE 100 UNITS/ML SQ SCH ×2 (07:24→19:58)
[2020-01-28 07:31] LABS: C.diff Antigen/Toxin Ag neg : Tox neg (NEG : NEG)
--- NOTE | 2020-01-28 09:46 | P.RH.PN ---
Estimated Length of Stay: 16 Expected Discharge Date: 02/05/20 Discharge Disposition Plan: Home Family Support: Yes Shelter Goal: Mobility, Transfers, Self Care Vital Signs: Last Vital Signs Temp 97.4 F 01/28/20 06:56 Pulse 89 01/28/20 07:23 Resp 18 01/28/20 06:56 BP 125/63 01/28/20 07:23 Pulse Ox 96 01/28/20 06:56 Laboratory: Laboratory Last Values WBC 6.4 K/uL (4.3-10.9) D 01/27/20 05:55 RBC 3.16 M/uL (4.33-5.43) L 01/27/20 05:55 Hgb 9.5 g/dL (13.6-17.9) L 01/27/20 05:55 Hct 29.0 % (39.6-49.0) L 01/27/20 05:55 MCV 91.5 fL (80-100) 01/27/20 05:55 MCH 30.0 pg (27.0-35.0) 01/27/20 05:55 MCHC 32.8 g/dL (32.0-36.0) 01/27/20 05:55 RDW 16.8 % (12.1-15.2) H 01/27/20 05:55 Plt Count 372 K/uL (152-406) 01/27/20 05:55 MPV 6.7 fL (7.6-11.3) L 01/27/20 05:55 Neutrophils % 65.4 % (41.7-73.7) 01/27/20 05:55 Lymphocytes % 19.6 % (15.3-44.8) 01/27/20 05:55 Monocytes % 7.8 % (3.3-12.3) 01/27/20 05:55 Eosinophils % 6.0 % (0-4.4) H 01/27/20 05:55 Basophils % 1.2 % (0-1.3) 01/27/20 05:55 Absolute Neutrophils 4.2 K/uL (1.8-8.0) 01/27/20 05:55 Absolute Lymphocytes 1.3 K/uL (0.7-4.9) 01/27/20 05:55 Absolute Monocytes 0.5 K/uL (0.1-1.3) 01/27/20 05:55 Absolute Eosinophils 0.4 K/uL (0-0.5) 01/27/20 05:55 Absolute Basophils 0.1 K/uL (0-0.5) 01/27/20 05:55 Sodium 146 mmol/L (136-145) H 01/27/20 05:55 Potassium 3.5 mmol/L (3.5-5.1) 01/27/20 05:55 Chloride 111 mmol/L (98-107) H 01/27/20 05:55 Carbon Dioxide 29 mmol/L (21-32) 01/27/20 05:55 BUN 24 mg/dL (7-18) H 01/27/20 05:55 Creatinine 1.20 mg/dL (0.55-1.3) 01/27/20 05:55 Estimated GFR 59 mL/min (=/>90) L 01/27/20 05:55 Glucose 74 mg/dL (74-106) 01/27/20 05:55 POC Glucose 97 mg/dl (65-120) 01/28/20 06:53 Calcium 8.6 mg/dL (8.5-10.1) 01/27/20 05:55 Magnesium 1.8 mg/dL (1.8-2.4) 01/27/20 05:55 Total Bilirubin 0.7 mg/dL (0.2-1.0) 01/27/20 05:55 AST 15 U/L (15-37) 01/27/20 05:55 ALT 12 U/L (12-78) 01/27/20 05:55 Alkaline Phosphatase 137 U/L (45-117) H 01/27/20 05:55 Serum Total Protein 7.0 g/dL (6.4-8.2) 01/27/20 05:55 Albumin 2.6 g/dL (3.4-5.0) L 01/27/20 05:55 Globulin 4.4 g/dL (2.3-3.5) H 01/27/20 05:55 Albumin/Globulin Ratio 0.6 (1.1-1.8) L 01/27/20 05:55 Prealbumin 13.3 mg/dL (20-40) L 01/27/20 05:55 Urine Color Yellow 01/24/20 16:50 Urine Appearance Clear 01/24/20 16:50 Urine pH 6.0 (5.0-7.0) 01/24/20 16:50 Ur Specific [place] 1.010 (1.005-1.030) 01/24/20 16:50 Glucose (UA)(Auto) 1+ (NEG) H 01/24/20 16:50 Urine Ketones Negative (NEG) 01/24/20 16:50 Urine Blood Trace (NEG) H 01/24/20 16:50 Urine Nitrite Negative (NEG) 01/24/20 16:50 Urine Bilirubin Negative (NEG) 01/24/20 16:50 Urine Urobilinogen 1.0 mg/dL (0.2-1.0) 01/24/20 16:50 Ur Leukocyte Esterase 1+ (NEG) H 01/24/20 16:50 Urine RBC 5-10 /HPF (NONE SEEN) H 01/24/20 16:50 Urine WBC 5-10 /HPF (<5) H 01/24/20 16:50 Ur Squamous Epith Cells <5 /HPF (NONE SEEN) 01/24/20 16:50 Urine Bacteria <20 /HPF (NONE SEEN) 01/24/20 16:50 Urine Mucus 1+ /HPF (NONE SEEN) 01/24/20 16:50 Urine Culture Reflexed Not needed 01/24/20 16:50 Urine Total Protein Negative (NEG) 01/24/20 16:50 C. difficile Ag & Toxin Ag neg : tox neg (NEG : NEG) 01/27/20 08:05 Weight: 243 lb 0.2 oz Wound Present: Yes Closed Surgical Incision Present: Yes Negative Pressure Wound Therapy Present: No Physician Update: Labs reviewed and are stable. However, sugars are running low in the AM. will cut down lantus to 30 bid. Wound care is doing daily dressing changes to his sacral stage II ulcer. His ADL require moderate assistance. He needs queing and moderate assistance to stand. His walking 15' to 20' with sternal precautions. His stool for c-diff is pending. His bowel movements have slowed. His blood pressures are better. Functional Improvement: Patient has shown improvment w/ transfers and gait tx. and continues to progress toward meeting goals. Patient requires VC for sternal precautions approx. 25% of the time, however follows instructions well. Summary: Patient's care plan and fpc goals have been reviewed and revised as necessary. Please see the Rehabilitation Signature page for all necessary signatures.
[2020-01-28] MEDS: MEDIHONEY 44 ML TOPICAL TUBE TOP SCH (09:52)
[2020-01-28] MEDS: NYSTATIN OINT 15 GM TUBE TOP SCH ×2 (09:52→19:56)
--- NOTE | 2020-01-28 13:18 | FAST ---
ENCOUNTER DATE AND TIME: 01/28/2020 08:00 (CDT) NAME JUAN DIEGO OLIVEIRA DATE OF : 1945 DATE OF ADMISSION: 01/24/2020 16:32 (CDT) PHONE: AGE: 74 SSN# [id number] GENDER: Male ENCOUNTER PHYSICIAN: Dr. Eduardo Bajwa M.D. ADMISSION DIAGNOSIS: - Cardiac 09 - Cardiac Disorders () CABG. EATING: Not assessed/no information CODE: - ORAL HYGIENE: Not assessed/no information CODE: - TOILETING HYGIENE: Not assessed/no information CODE: - BATHING: Not assessed/no information CODE: - DRESSING - UPPER BODY: DRESSING - UPPER BODY - STEP 1: Does the patient complete the activity by him/herself with no assistance (physical, verbal/nonverbal cueing, setup/clean-up)? No. DRESSING - UPPER BODY - STEP 2: Does the patient need only setup/clean-up assistance from one helper? Yes. 1. [id number] ADMISSION PERFORMANCE: Setup or clean-up assistance CODE: 05 DRESSING - LOWER BODY: DRESSING - LOWER BODY - STEP 1: Does the patient complete the activity by him/herself with no assistance (physical, verbal/nonverbal cueing, setup/clean-up)? No. DRESSING - LOWER BODY - STEP 2: Does the patient need only setup/clean-up assistance from one helper? No. DRESSING - LOWER BODY - STEP 3: Does the patient need only verbal/nonverbal cueing or touching/steadying/contact guard assistance fro m one helper? Yes. 1. [id number] ADMISSION PERFORMANCE: Supervision or touching assistance CODE: 04 PUTTING ON/TAKING OFF FOOTWEAR: FOOTWEAR - STEP 1: Does the patient complete the activity by him/herself with no assistance (physical, verbal/nonverbal cueing, setup/clean-up)? No. FOOTWEAR - STEP 2: Does the patient need only setup/clean-up assistance from one helper? No. FOOTWEAR - STEP 3: Does the patient need only verbal/nonverbal cueing or touching/steadying/contact guard assistance fro m one helper? No. FOOTWEAR - STEP 4: Does the patient need physical assistance - for example lifting or trunk support from one helper - wi th the helper providing less than half of the effort? Yes. 1. [id number] ADMISSION PERFORMANCE: Partial/moderate assistance CODE: 03 DOES THE PATIENT USE A WHEELCHAIR/SCOOTER? CODE: EXPR INDICATE THE TYPE OF WHEELCHAIR/SCOOTER USED: CODE: EXPR INDICATE THE TYPE OF WHEELCHAIR/SCOOTER USED: CODE: EXPR BLADDER AND BOWEL: CODE: EXPR CODE: EXPR SIGNATURE PANEL: The following modified sections: 1. [id number] Admission Performance, 1. [id number] Admission Performance, 1. [id number] Admission Performance were [electronically] signed by Kari Farah OT on Fri 13:16:46 T-0500 (Central Daylight Time)
--- NOTE | 2020-01-28 14:58 | FAST ---
ENCOUNTER DATE AND TIME: 01/28/2020 08:00 (CDT) NAME JUAN DIEGO OLIVEIRA DATE OF : 1945 DATE OF ADMISSION: 01/24/2020 16:32 (CDT) PHONE: AGE: 74 N# [id number] GENDER: Male ENCOUNTER PHYSICIAN: Dr. Eduardo Bajwa M.D. ADMISSION DIAGNOSIS: - Cardiac 09 - Cardiac Disorders () CABG. ROLL LEFT AND RIGHT: ROLL LEFT AND RIGHT - STEP 1: Does the patient complete the activity by him/herself with no assistance (physical, verbal/nonverbal cueing, setup/clean-up)? No. ROLL LEFT AND RIGHT - STEP 2: Does the patient need only setup/clean-up assistance from one helper? No. ROLL LEFT AND RIGHT - STEP 3: Does the patient need only verbal/nonverbal cueing or touching/steadying/contact guard assistance fro m one helper? Yes. 1. [id number] ADMISSION PERFORMANCE: Supervision or touching assistance CODE: 04 SIT TO LYING: SIT TO LYING - STEP 1: Does the patient complete the activity by him/herself with no assistance (physical, verbal/nonverbal cueing, setup/clean-up)? No. SIT TO LYING - STEP 2: Does the patient need only setup/clean-up assistance from one helper? No. SIT TO LYING - STEP 3: Does the patient need only verbal/nonverbal cueing or touching/steadying/contact guard assistance fro m one helper? Yes. 1. [id number] ADMISSION PERFORMANCE: Supervision or touching assistance CODE: 04 LYING TO SITTING: LYING TO SITTING ON SIDE OF BED - STEP 1: Does the patient complete the activity by him/herself with no assistance (physical, verbal/nonverbal cueing, setup/clean-up)? No. LYING TO SITTING ON SIDE OF BED - STEP 2: Does the patient need only setup/clean-up assistance from one helper? No. LYING TO SITTING ON SIDE OF BED - STEP 3: Does the patient need only verbal/nonverbal cueing or touching/steadying/contact guard assistance fro m one helper? Yes. 1. [id number] ADMISSION PERFORMANCE: Supervision or touching assistance CODE: 04 SIT TO STAND: SIT TO STAND - STEP 1: Does the patient complete the activity by him/herself with no assistance (physical, verbal/nonverbal cueing, setup/clean-up)? No. SIT TO STAND - STEP 2: Does the patient need only setup/clean-up assistance from one helper? No. SIT TO STAND - STEP 3: Does the patient need only verbal/nonverbal cueing or touching/steadying/contact guard assistance fro m one helper? Yes. 1. [id number] ADMISSION PERFORMANCE: Supervision or touching assistance CODE: 04 TRANSFERS: BED, CHAIR: CHAIR/[id number] TRANSFER - STEP 1: Does the patient complete the activity by him/herself with no assistance (physical, verbal/nonverbal cueing, setup/clean-up)? No. CHAIR/[id number] TRANSFER - STEP 2: Does the patient need only setup/clean-up assistance from one helper? No. CHAIR/[id number] TRANSFER - STEP 3: Does the patient need only verbal/nonverbal cueing or touching/steadying/contact guard assistance fro m one helper? Yes. 1. [id number] ADMISSION PERFORMANCE: Supervision or touching assistance CODE: 04 TRANSFER TOILET: TOILET TRANSFER - STEP 1: Does the patient complete the activity by him/herself with no assistance (physical, verbal/nonverbal cueing, setup/clean-up)? No. TOILET TRANSFER - STEP 2: Does the patient need only setup/clean-up assistance from one helper? No. TOILET TRANSFER - STEP 3: Does the patient need only verbal/nonverbal cueing or touching/steadying/contact guard assistance fro m one helper? Yes. 1. [id number] ADMISSION PERFORMANCE: Supervision or touching assistance CODE: 04 TRANSFERS: CAR: Not attempted due to environmental limitations (e.g., lack of equipment, weather constraints) CODE: 10 WALK 10 FEET: WALK 10 FEET - STEP 1: Does the patient complete the activity by him/herself with no assistance (physical, verbal/nonverbal cueing, setup/clean-up)? No. WALK 10 FEET - STEP 2: Does the patient need only setup/clean-up assistance from one helper? Yes. 1. [id number] ADMISSION PERFORMANCE: Setup or clean-up assistance CODE: 05 WALK 50 FEET: WALK 50 FEET - STEP 1: Does the patient complete the activity by him/herself with no assistance (physical, verbal/nonverbal cueing, setup/clean-up)? No. WALK 50 FEET - STEP 2: Does the patient need only setup/clean-up assistance from one helper? Yes. 1. [id number] ADMISSION PERFORMANCE: Setup or clean-up assistance CODE: 05 WALK 150 FEET: Not attempted due to medical condition or safety concerns CODE: 88 WALK 10 FEET UNEVEN: Not attempted due to medical condition or safety concerns CODE: 88 1 STEP (CURB): Not attempted due to medical condition or safety concerns CODE: 88 PICKING UP OBJECT: Not attempted due to medical condition or safety concerns CODE: 88 DOES THE PATIENT USE A WHEELCHAIR/SCOOTER? Q1. DOES THE PATIENT USE A WHEELCHAIR/SCOOTER?: No CODE: 0 INDICATE THE TYPE OF WHEELCHAIR/SCOOTER USED: CODE: EXPR INDICATE THE TYPE OF WHEELCHAIR/SCOOTER USED: CODE: EXPR BLADDER AND BOWEL: CODE: EXPR CODE: EXPR SIGNATURE PANEL: The following modified sections: 1. [id number] Admission Performance, 1. [id number] Admission Performance, 1. [id number] Admission Performance, 1. [id number] Admission Performance, 1. [id number] Admission Performance, 1. [id number] Admission Performance, 1. [id number] Admission Performance, 1. [id number] Admission Performance , Q1. Does the patient use a wheelchair/scooter? were [electronically] signed by Jimmy Ruth PTA on F Jan 28 2020 14:57:48 GMT-0500 (Central Daylight Time)
[2020-01-28] MEDS: ENOXAPARIN 40 MG/0.4 ML SQ SCH (17:02)
[2020-01-28] MEDS: ATORVASTATIN 20 MG TAB PO SCH (22:00)
[2020-01-28] MEDS: MELATONIN 3 MG TABLET PO SCH (22:00)
[2020-01-29] MEDS: TRAZODONE 50 MG TABLET PO PRN ×2 (01:35→23:34)
--- NOTE | 2020-01-29 02:10 | FAST ---
SHIFT START DATE/TIME: 01/28/2020 19:00 (CDT) SHIFT END DATE/TIME: 01/29/2020 07:00 (CDT) NAME JUAN DIEGO OLIVEIRA DATE OF : 1945 DATE OF ADMISSION: 01/24/2020 16:32 (CDT) PHONE: AGE: 74 N# [id number] GENDER: Male ENCOUNTER PHYSICIAN: Dr. Eduardo Bajwa M.D. ADMISSION DIAGNOSIS: - Cardiac 09 - Cardiac Disorders () CABG. EATING: Not assessed/no information CODE: - ORAL HYGIENE: ORAL HYGIENE - STEP 1: Does the patient complete the activity by him/herself with no assistance (physical, verbal/nonverbal cueing, setup/clean-up)? No. ORAL HYGIENE - STEP 2: Does the patient need only setup/clean-up assistance from one helper? No. ORAL HYGIENE - STEP 3: Does the patient need only verbal/nonverbal cueing or touching/steadying/contact guard assistance fro m one helper? Yes. 1. [id number] ADMISSION PERFORMANCE: Supervision or touching assistance CODE: 04 TOILETING HYGIENE: TOILETING HYGIENE - STEP 1: Does the patient complete the activity by him/herself with no assistance (physical, verbal/nonverbal cueing, setup/clean-up)? No. TOILETING HYGIENE - STEP 2: Does the patient need only setup/clean-up assistance from one helper? No. TOILETING HYGIENE - STEP 3: Does the patient need only verbal/nonverbal cueing or touching/steadying/contact guard assistance fro m one helper? No. TOILETING HYGIENE - STEP 4: Does the patient need physical assistance - for example lifting or trunk support from one helper - wi th the helper providing less than half of the effort? Yes. 1. [id number] ADMISSION PERFORMANCE: Partial/moderate assistance CODE: 03 BATHING: Not assessed/no information CODE: - DRESSING - UPPER BODY: Not assessed/no information CODE: - DRESSING - LOWER BODY: Not assessed/no information CODE: - PUTTING ON/TAKING OFF FOOTWEAR: Not assessed/no information CODE: - ROLL LEFT AND RIGHT: ROLL LEFT AND RIGHT - STEP 1: Does the patient complete the activity by him/herself with no assistance (physical, verbal/nonverbal cueing, setup/clean-up)? No. ROLL LEFT AND RIGHT - STEP 2: Does the patient need only setup/clean-up assistance from one helper? No. ROLL LEFT AND RIGHT - STEP 3: Does the patient need only verbal/nonverbal cueing or touching/steadying/contact guard assistance fro m one helper? Yes. 1. [id number] ADMISSION PERFORMANCE: Supervision or touching assistance CODE: 04 SIT TO LYING: SIT TO LYING - STEP 1: Does the patient complete the activity by him/herself with no assistance (physical, verbal/nonverbal cueing, setup/clean-up)? No. SIT TO LYING - STEP 2: Does the patient need only setup/clean-up assistance from one helper? No. SIT TO LYING - STEP 3: Does the patient need only verbal/nonverbal cueing or touching/steadying/contact guard assistance fro m one helper? Yes. 1. [id number] ADMISSION PERFORMANCE: Supervision or touching assistance CODE: 04 LYING TO SITTING: LYING TO SITTING ON SIDE OF BED - STEP 1: Does the patient complete the activity by him/herself with no assistance (physical, verbal/nonverbal cueing, setup/clean-up)? No. LYING TO SITTING ON SIDE OF BED - STEP 2: Does the patient need only setup/clean-up assistance from one helper? No. LYING TO SITTING ON SIDE OF BED - STEP 3: Does the patient need only verbal/nonverbal cueing or touching/steadying/contact guard assistance fro m one helper? Yes. 1. [id number] ADMISSION PERFORMANCE: Supervision or touching assistance CODE: 04 SIT TO STAND: SIT TO STAND - STEP 1: Does the patient complete the activity by him/herself with no assistance (physical, verbal/nonverbal cueing, setup/clean-up)? No. SIT TO STAND - STEP 2: Does the patient need only setup/clean-up assistance from one helper? No. SIT TO STAND - STEP 3: Does the patient need only verbal/nonverbal cueing or touching/steadying/contact guard assistance fro m one helper? Yes. 1. [id number] ADMISSION PERFORMANCE: Supervision or touching assistance CODE: 04 TRANSFERS: BED, CHAIR: CHAIR/[id number] TRANSFER - STEP 1: Does the patient complete the activity by him/herself with no assistance (physical, verbal/nonverbal cueing, setup/clean-up)? No. CHAIR/[id number] TRANSFER - STEP 2: Does the patient need only setup/clean-up assistance from one helper? No. CHAIR/[id number] TRANSFER - STEP 3: Does the patient need only verbal/nonverbal cueing or touching/steadying/contact guard assistance fro m one helper? Yes. 1. [id number] ADMISSION PERFORMANCE: Supervision or touching assistance CODE: 04 TRANSFER TOILET: TOILET TRANSFER - STEP 1: Does the patient complete the activity by him/herself with no assistance (physical, verbal/nonverbal cueing, setup/clean-up)? No. TOILET TRANSFER - STEP 2: Does the patient need only setup/clean-up assistance from one helper? No. TOILET TRANSFER - STEP 3: Does the patient need only verbal/nonverbal cueing or touching/steadying/contact guard assistance fro m one helper? Yes. 1. [id number] ADMISSION PERFORMANCE: Supervision or touching assistance CODE: 04 TRANSFERS: CAR: Not assessed/no information CODE: - WALK 10 FEET: Not assessed/no information CODE: - 1 STEP (CURB): Not assessed/no information CODE: - PICKING UP OBJECT: Not assessed/no information CODE: - DOES THE PATIENT USE A WHEELCHAIR/SCOOTER? CODE: EXPR WHEEL 50 FEET WITH TWO TURNS: Not assessed/no information CODE: - INDICATE THE TYPE OF WHEELCHAIR/SCOOTER USED: CODE: EXPR WHEEL 150 FEET: Not assessed/no information CODE: - INDICATE THE TYPE OF WHEELCHAIR/SCOOTER USED: CODE: EXPR BLADDER AND BOWEL: H350. BLADDER CONTINENCE (3-DAY ASSESSMENT PERIOD): Always continent (no documented incontinence) CODE: 0 H400. BOWEL CONTINENCE (3-DAY ASSESSMENT PERIOD): Always continent CODE: 0
[2020-01-29] MEDS: INSULIN -REGULAR HUMAN 50 UNIT/0.5 ML ML SQ SCH ×4 (07:07→20:31)
[2020-01-29] MEDS: ACETAMINOPHEN 325 MG TABLET PO PRN (07:11)
[2020-01-29] MEDS: PANTOPRAZOLE 40MG TABLET PO SCH (07:11)
[2020-01-29] MEDS: gemfibroziL 600 MG TAB PO SCH ×2 (07:15→20:30)
[2020-01-29] MEDS: MEDIHONEY 44 ML TOPICAL TUBE TOP SCH (07:15)
[2020-01-29] MEDS: NYSTATIN OINT 15 GM TUBE TOP SCH ×2 (07:16→20:00)
[2020-01-29] MEDS: ASPIRIN EC 81 MG TAB PO SCH (07:16)
[2020-01-29] MEDS: FINASTERIDE 5 MG TAB PO SCH (07:16)
[2020-01-29] MEDS: carvediloL 3.125 MG TAB PO SCH ×2 (07:16→20:29)
[2020-01-29] MEDS: CLOPIDOGREL 75 MG TABLET PO SCH (07:17)
[2020-01-29] MEDS: FE SULF/FA/VIT B COMP & C TAB PO SCH (07:17)
[2020-01-29] MEDS: TAMSULOSIN 0.4 MG SR CAP PO SCH ×2 (07:17→20:29)
[2020-01-29] MEDS: FERROUS SULFATE 325 MG TAB PO SCH (07:17)
[2020-01-29] MEDS: FUROSEMIDE 20 MG TABLET PO SCH (07:17)
[2020-01-29] MEDS: GLIPIZIDE S.A. 5 MG TAB PO SCH ×2 (07:18→16:52)
[2020-01-29] MEDS: INSULIN GLARGINE 100 UNITS/ML SQ SCH ×2 (07:18→20:27)
[2020-01-29] MEDS: SODIUM CHLORIDE 0.9% 10ML INJ IV SCH ×2 (07:19→20:30)
[2020-01-29] MEDS: METFORMIN HCL 500 MG TAB PO SCH ×2 (07:20→16:52)
[2020-01-29] MEDS: ENOXAPARIN 40 MG/0.4 ML SQ SCH (16:51)
[2020-01-29] MEDS: ATORVASTATIN 20 MG TAB PO SCH (20:29)
[2020-01-29] MEDS: MELATONIN 3 MG TABLET PO SCH (20:30)
[2020-01-30] MEDS: INSULIN -REGULAR HUMAN 50 UNIT/0.5 ML ML SQ SCH ×4 (07:21→20:11)
[2020-01-30] MEDS: PANTOPRAZOLE 40MG TABLET PO SCH (07:24)
[2020-01-30] MEDS: ACETAMINOPHEN 325 MG TABLET PO PRN (07:24)
[2020-01-30] MEDS: gemfibroziL 600 MG TAB PO SCH ×2 (07:26→20:09)
[2020-01-30] MEDS: SODIUM CHLORIDE 0.9% 10ML INJ IV SCH ×2 (07:26→20:10)
[2020-01-30] MEDS: TAMSULOSIN 0.4 MG SR CAP PO SCH ×2 (07:26→20:09)
[2020-01-30] MEDS: FERROUS SULFATE 325 MG TAB PO SCH (07:27)
[2020-01-30] MEDS: CLOPIDOGREL 75 MG TABLET PO SCH (07:27)
[2020-01-30] MEDS: FINASTERIDE 5 MG TAB PO SCH (07:27)
[2020-01-30] MEDS: FUROSEMIDE 20 MG TABLET PO SCH (07:27)
[2020-01-30] MEDS: ASPIRIN EC 81 MG TAB PO SCH (07:27)
[2020-01-30] MEDS: METFORMIN HCL 500 MG TAB PO SCH ×2 (07:27→17:04)
[2020-01-30] MEDS: FE SULF/FA/VIT B COMP & C TAB PO SCH (07:27)
[2020-01-30] MEDS: INSULIN GLARGINE 100 UNITS/ML SQ SCH ×2 (07:28→20:09)
[2020-01-30] MEDS: GLIPIZIDE S.A. 5 MG TAB PO SCH ×2 (07:28→17:04)
[2020-01-30] MEDS: carvediloL 3.125 MG TAB PO SCH ×2 (07:28→20:00)
[2020-01-30] MEDS: MEDIHONEY 44 ML TOPICAL TUBE TOP SCH (07:29)
[2020-01-30] MEDS: NYSTATIN OINT 15 GM TUBE TOP SCH ×2 (07:29→20:10)
[2020-01-30] MEDS: ENOXAPARIN 40 MG/0.4 ML SQ SCH (17:03)
[2020-01-30] MEDS: MELATONIN 3 MG TABLET PO SCH (20:10)
[2020-01-30] MEDS: ATORVASTATIN 20 MG TAB PO SCH (20:10)
[2020-01-30] MEDS: TRAZODONE 50 MG TABLET PO PRN (22:22)
[2020-01-31] MEDS: INSULIN -REGULAR HUMAN 50 UNIT/0.5 ML ML SQ SCH ×4 (07:30→20:26)
[2020-01-31] MEDS: SODIUM CHLORIDE 0.9% 10ML INJ IV SCH ×2 (08:00→20:00)
[2020-01-31] MEDS: FE SULF/FA/VIT B COMP & C TAB PO SCH (08:15)
[2020-01-31] MEDS: CLOPIDOGREL 75 MG TABLET PO SCH (08:15)
[2020-01-31] MEDS: FUROSEMIDE 20 MG TABLET PO SCH (08:15)
[2020-01-31] MEDS: ASPIRIN EC 81 MG TAB PO SCH (08:16)
[2020-01-31] MEDS: METFORMIN HCL 500 MG TAB PO SCH ×2 (08:16→17:01)
[2020-01-31] MEDS: TAMSULOSIN 0.4 MG SR CAP PO SCH ×2 (08:16→20:23)
[2020-01-31] MEDS: FERROUS SULFATE 325 MG TAB PO SCH (08:16)
[2020-01-31] MEDS: ACETAMINOPHEN 325 MG TABLET PO PRN (08:17)
[2020-01-31] MEDS: GLIPIZIDE S.A. 5 MG TAB PO SCH ×2 (08:17→17:01)
[2020-01-31] MEDS: FINASTERIDE 5 MG TAB PO SCH (08:17)
[2020-01-31] MEDS: PANTOPRAZOLE 40MG TABLET PO SCH (08:17)
[2020-01-31] MEDS: gemfibroziL 600 MG TAB PO SCH ×2 (08:17→20:28)
[2020-01-31] MEDS: INSULIN GLARGINE 100 UNITS/ML SQ SCH ×2 (08:18→21:49)
[2020-01-31] MEDS: MEDIHONEY 44 ML TOPICAL TUBE TOP SCH (08:21)
[2020-01-31] MEDS: NYSTATIN OINT 15 GM TUBE TOP SCH ×2 (08:22→20:00)
[2020-01-31] MEDS: carvediloL 3.125 MG TAB PO SCH ×2 (10:35→20:00)
[2020-01-31] MEDS: ENOXAPARIN 40 MG/0.4 ML SQ SCH (17:01)
--- NOTE | 2020-01-31 17:58 | R.PN ---
ENCOUNTER DATE AND TIME: 01/31/2020 17:50 (CDT) NAME JUAN DIEGO OLIVEIRA DATE OF : 1945 DATE OF ADMISSION: 01/24/2020 16:32 (CDT) CABGCHIEF COMPLAINT: S/P CABG for CAD SUBJECTIVE: Pt denied any depression. Pt denied any Shortness of Breath. WBC 6.4, Hgb 9.5, glucose 100 to 159, prealbumin 13.3, UA 1+ esterase bacteria < 20. Ambulated 20', 15' and 20' with minimum assistance using a rolling waker. Activities of daily living done with contact guard to independence. VITAL SIGNS Temperature: 97.2 F SBP/DBP: 122/68 Pulse: 83 Resp: 18 MEDICATION ALLERGIES: CIPROFLOXACIN PEN (PENICILLINS) ENVIRONMENTAL ALLERGIES: - Substance Allergies None Known - Other Allergies None Known NURSING: - Shower allowing shower ACTIVITIES OOB only with supervision THERAPIES: - Dietary and Nutrition Adequate Nutrition. Nutritional Education. Nutritional Supplements. PHYSICAL EXAM - Gen Alert and awake Sitting in chair No apparent distress Oriented to: person, time, and place - Skin No skin breakdown. Normacephalic - Eyes No abnormalities - ENMT No abnormalities - Neck No abnormalities - CVS RRR - Chest Mildly decreased breath sounds bilaterally. - Resp Clear to auscultation - Abd Soft - GI Non distended Deferred - No abnormalities - Ext Mild bilateral lower extremity edema. - MSK 4+/5 weakness in both lower extremities. - Neuro No focal deficits - Psych No abnormalities ASSESSMENT: Pt. is a 74 yo Right-handed white male.On 01/21/2020 he was admitted to [facility] with diag nosis CABG.His impairment category is Cardiac 09 - Cardiac Disorders (09).Pre-morbidly, Pt. was inde pendent/mod-I in Endurance, Self-Care, Locomotion, and Transfers Control; and he had good Safety Awar eness, Balance, Communication, Endurance, Social Cognition, and Sphincter Control.Currently, he has d eficits of Endurance, Self-Care, Transfers Control, Safety Awareness, and Locomotion.Pt. is now refer red to [facility] for acute in-patient rehabilitation in order to maximize pat ient's functional independence in activities of daily living, strength, ROM, and mobility.- Rehab Goa l Patient has realistic goal of being discharged at assistance level 6-Steffany to reside at Home with Fam amrik/Relatives. MDM/PLAN: - Physical Therapy Gait dysfunction - to improve, our physical therapists will perform initial evaluation of pt's statu s upon admission and devise an individualized program for Gait Training, and Wheel Chair mobility Inability to transfer - to improve, our physical therapists will perform initial evaluation of pt's status upon admission and devise an individualized program for Bed mobility Need for home safety evaluation - to improve, our physical therapists will perform initial evaluatio n of pt's status upon admission and devise an individualized program for Home Evaluation Need in caregiver upon discharge - to improve, our physical therapists will perform initial evaluati on of pt's status upon admission and devise an individualized program for Caregiver Training Edema - to improve, our physical therapists will perform initial evaluation of pt's status upon admi ssion and devise an individualized program for Elevation Training, and Lymphedema Therapy New precaution - to improve, our physical therapists will perform initial evaluation of pt's status upon admission and devise an individualized program for Patient precaution education Poor endurance - to improve, our physical therapists will perform initial evaluation of pt's status upon admission and devise an individualized program for Endurance Training Weakness - to improve, our physical therapists will perform initial evaluation of pt's status upon a dmission and devise an individualized program for Aquatic Therapy, Neuromuscular Reeducation, and Str engthening Achieving independence - to improve, our physical therapists will perform initial evaluation of pt's status upon admission and devise an individualized program for Community Reintegration Activities - Occupational Therapy ADL deficits - to improve, our occupation therapists will perform initial evaluation of pt's status upon admission and devise an individualized program for Bathing, Bed mobility, Community Reintegratio n, Cooking, Dressing, Eating, Fine Motor Skills, Grooming, Homemaking, Kitchen Mobility, Laundry, Pat ient Education, Safety Awareness, Splinting - Positioning, Transfers(Toilet, Tub, Shower), and Wheel Chair Management Need for live in caregiver - to improve, our occupation therapists will perform initial evaluation of pt's status upon admission and devise an individualized program for Caregiver Training Weakness - to improve, our occupation therapists will perform initial evaluation of pt's status upon admission and devise an individualized program for Aquatic Therapy, Balance, Endurance, UE ROM, and UE strengthening - Other See attached MAR (Medication Administration Record) - Diet Type Continue Regular - Diet - Liquid Texture Continue Regular - Tube Feed Continue N/A - Diet - Solid Texture Continue Regular - Shower allowing shower FUNCTIONAL STATUS: UPDATED AT WEEKLY TEAM CONFERENCE - Bladder Same accident frequency: 7-Ind - No accidents in the past 7 days - Bowel Same accident frequency: 7-Ind - No accidents in the past 7 days - Walking Same score based on distance walked: 0(N/A) - Wheelchair Same score based on distance traveled: 1(<=50ft) FUNCTIONAL STATUS: - Self-Care A. Eating Ind B. Grooming Ind C. Bathing modA D. Dressing - Upper [place] E. Dressing - Lower modA F. Toileting Arina - Sphincter Control G. Bladder control Steffany H. Bowel control Steffany - Transfers Control I. Bed/Chair/Wheelchair modA J. Toilet modA K. Tub/Shower modA - Locomotion L. Walk/Wheelchair (B) modA M. Stairs ADNO - Communication N. Comprehension (B) Ind O. Expression (B) Ind - Social Cognition P. Social Interaction Ind Q. Problem Solving Ind R. Memory Ind - Endurance Fair - Balance Fair - Safety Awareness Good QI SCORES: - Self-Care A. Eating 06-Independent B. Oral hygiene 01-Dependent C. Toileting hygiene 02-Substantial/maximal assistance E. Shower/bathe self 02-Substantial/maximal assistance F. Upper body dressing 03-Partial/moderate assistance G. Lower body dressing 88-Not attempted due to medical condition or safety concerns H. Putting on/taking off footwear 03-Partial/moderate assistance - Mobility A. Roll left and right 04-Supervision or touching assistance B. Sit to lying 03-Partial/moderate assistance C. Lying to sitting on side of bed 03-Partial/moderate assistance D. Sit to stand 02-Substantial/maximal assistance E. Chair/[id number] transfer 02-Substantial/maximal assistance F. Toilet transfer 02-Substantial/maximal assistance G. Car transfer 88-Not attempted due to medical condition or safety concerns I. Walk 10 feet 88-Not attempted due to medical condition or safety concerns J. Walk 50 feet with two turns 88-Not attempted due to medical condition or safety concerns K. Walk 150 feet 88-Not attempted due to medical condition or safety concerns L. Walking 10 feet on uneven surfaces 88-Not attempted due to medical condition or safety concerns M. 1 step (curb) 88-Not attempted due to medical condition or safety concerns N. 4 steps 88-Not attempted due to medical condition or safety concerns O. 12 steps 88-Not attempted due to medical condition or safety concerns P. Picking up object 06-Independent R. Wheel 50 feet with two turns 88-Not attempted due to medical condition or safety concerns S. Wheel 150 feet 88-Not attempted due to medical condition or safety concerns - Bladder and Bowel Bladder continence 0-Always continent Bowel continence 0-Always continent - Endurance Fair - Balance Poor - Safety Awareness Fair CURRENT [facility] DEFICITS: Mobility, Endurance, Balance, Safety Awareness, and Self-Care SIGNATURE PANEL: (CDT)
[2020-01-31] MEDS ORDERED: JUVEN PACKET PO SCH (20:00)
[2020-01-31] MEDS: MELATONIN 3 MG TABLET PO SCH (20:23)
[2020-01-31] MEDS: ATORVASTATIN 20 MG TAB PO SCH (20:24)
[2020-01-31] MEDS: TRAZODONE 50 MG TABLET PO PRN (22:53)
[2020-02-01] MEDS: ACETAMINOPHEN 325 MG TABLET PO PRN ×3 (02:13→19:22)
[2020-02-01 06:40] LABS: Potassium 3.7 mmol/L (3.5-5.1)
[2020-02-01] MEDS: PANTOPRAZOLE 40MG TABLET PO SCH (06:53)
[2020-02-01] MEDS: SODIUM CHLORIDE 0.9% 10ML INJ IV SCH ×2 (06:55→19:23)
[2020-02-01] MEDS: GLIPIZIDE S.A. 5 MG TAB PO SCH ×2 (06:58→16:34)
[2020-02-01] MEDS: METFORMIN HCL 500 MG TAB PO SCH ×2 (06:58→16:34)
[2020-02-01] MEDS: gemfibroziL 600 MG TAB PO SCH ×2 (06:58→19:22)
[2020-02-01] MEDS: FERROUS SULFATE 325 MG TAB PO SCH (06:59)
[2020-02-01] MEDS: FE SULF/FA/VIT B COMP & C TAB PO SCH (06:59)
[2020-02-01] MEDS: CLOPIDOGREL 75 MG TABLET PO SCH (06:59)
[2020-02-01] MEDS: TAMSULOSIN 0.4 MG SR CAP PO SCH ×2 (06:59→19:21)
[2020-02-01] MEDS: FINASTERIDE 5 MG TAB PO SCH (06:59)
[2020-02-01] MEDS: ASPIRIN EC 81 MG TAB PO SCH (06:59)
[2020-02-01] MEDS: MEDIHONEY 44 ML TOPICAL TUBE TOP SCH (07:00)
[2020-02-01] MEDS: NYSTATIN OINT 15 GM TUBE TOP SCH ×2 (07:00→19:21)
[2020-02-01] MEDS: FUROSEMIDE 20 MG TABLET PO SCH (07:00)
[2020-02-01] MEDS: carvediloL 3.125 MG TAB PO SCH ×2 (07:02→19:22)
[2020-02-01] MEDS: INSULIN -REGULAR HUMAN 50 UNIT/0.5 ML ML SQ SCH ×4 (07:06→20:33)
[2020-02-01] MEDS: INSULIN GLARGINE 100 UNITS/ML SQ SCH ×2 (07:07→19:22)
[2020-02-01] MEDS: PROMOD 30 ML DOSE PO SCH ×2 (07:40→19:23)
[2020-02-01] MEDS: ENOXAPARIN 40 MG/0.4 ML SQ SCH (16:33)
--- NOTE | 2020-02-01 17:19 | R.PN ---
ENCOUNTER DATE AND TIME: 02/01/2020 17:14 (CDT) NAME JUAN DIEGO OLIVEIRA DATE OF : 1945 DATE OF ADMISSION: 01/24/2020 16:32 (CDT) CABGCHIEF COMPLAINT: S/P CABG for CAD SUBJECTIVE: Pt denied any depression. Pt denied any Shortness of Breath. WBC 6.4, Hgb 9.5, glucose 74 to 212, prealbumin 13.3, calcium 8.8. UA 1+ esterase bacteria < 20. Ambulated 20', 15' and 20' with minimum assistance using a rolling waker. Activities of daily living done with contact guard to independence. VITAL SIGNS Temperature: 97.2 F SBP/DBP: 111/59 Pulse: 90 Resp: 18 MEDICATION ALLERGIES: CIPROFLOXACIN PEN (PENICILLINS) ENVIRONMENTAL ALLERGIES: - Substance Allergies None Known - Other Allergies None Known NURSING: - Shower allowing shower ACTIVITIES OOB only with supervision THERAPIES: - Dietary and Nutrition Adequate Nutrition. Nutritional Education. Nutritional Supplements. PHYSICAL EXAM - Gen Alert and awake Sitting in chair No apparent distress Oriented to: person, time, and place - Skin No skin breakdown. Normacephalic - Eyes No abnormalities - ENMT No abnormalities - Neck No abnormalities - CVS RRR - Chest Mildly decreased breath sounds bilaterally. - Resp Clear to auscultation - Abd Soft - GI Non distended Deferred - No abnormalities - Ext Mild bilateral lower extremity edema. - MSK 4+/5 weakness in both lower extremities. - Neuro No focal deficits - Psych No abnormalities ASSESSMENT: Pt. is a 74 yo Right-handed white male.On 01/21/[address] [facility] with diag nosis CABG.His impairment category is Cardiac 09 - Cardiac Disorders (09).Pre-morbidly, Pt. was inde pendent/mod-I in Endurance, Self-Care, Locomotion, and Transfers Control; and he had good Safety Awar eness, Balance, Communication, Endurance, Social Cognition, and Sphincter Control.Currently, he has d eficits of Endurance, Self-Care, Transfers Control, Safety Awareness, and Locomotion.Pt. is now refer red to [facility] for acute in-patient rehabilitation in order to maximize pat ient's functional independence in activities of daily living, strength, ROM, and mobility.- Rehab Goa l Patient has realistic goal of being discharged at assistance level 6-Steffany to reside at Home with Fam amrik/Relatives. MDM/PLAN: - Physical Therapy Gait dysfunction - to improve, our physical therapists will perform initial evaluation of pt's statu s upon admission and devise an individualized program for Gait Training, and Wheel Chair mobility Inability to transfer - to improve, our physical therapists will perform initial evaluation of pt's status upon admission and devise an individualized program for Bed mobility Need for home safety evaluation - to improve, our physical therapists will perform initial evaluatio n of pt's status upon admission and devise an individualized program for Home Evaluation Need in caregiver upon discharge - to improve, our physical therapists will perform initial evaluati on of pt's status upon admission and devise an individualized program for Caregiver Training Edema - to improve, our physical therapists will perform initial evaluation of pt's status upon admi ssion and devise an individualized program for Elevation Training, and Lymphedema Therapy New precaution - to improve, our physical therapists will perform initial evaluation of pt's status upon admission and devise an individualized program for Patient precaution education Poor endurance - to improve, our physical therapists will perform initial evaluation of pt's status upon admission and devise an individualized program for Endurance Training Weakness - to improve, our physical therapists will perform initial evaluation of pt's status upon a dmission and devise an individualized program for Aquatic Therapy, Neuromuscular Reeducation, and Str engthening Achieving independence - to improve, our physical therapists will perform initial evaluation of pt's status upon admission and devise an individualized program for Community Reintegration Activities - Occupational Therapy ADL deficits - to improve, our occupation therapists will perform initial evaluation of pt's status upon admission and devise an individualized program for Bathing, Bed mobility, Community Reintegratio n, Cooking, Dressing, Eating, Fine Motor Skills, Grooming, Homemaking, Kitchen Mobility, Laundry, Pat ient Education, Safety Awareness, Splinting - Positioning, Transfers(Toilet, Tub, Shower), and Wheel Chair Management Need for care services manager - to improve, our occupation therapists will perform initial evaluation of pt's status upon admission and devise an individualized program for Caregiver Training Weakness - to improve, our occupation therapists will perform initial evaluation of pt's status upon admission and devise an individualized program for Aquatic Therapy, Balance, Endurance, UE ROM, and UE strengthening - Other See attached MAR (Medication Administration Record) - Diet Type Continue Regular - Diet - Liquid Texture Continue Regular - Tube Feed Continue N/A - Diet - Solid Texture Continue Regular - Shower allowing shower FUNCTIONAL STATUS: UPDATED AT WEEKLY TEAM CONFERENCE - Bladder Same accident frequency: 7-Ind - No accidents in the past 7 days - Bowel Same accident frequency: 7-Ind - No accidents in the past 7 days - Walking Same score based on distance walked: 0(N/A) - Wheelchair Same score based on distance traveled: 1(<=50ft) FUNCTIONAL STATUS: - Self-Care A. Eating Ind B. Grooming Ind C. Bathing modA D. Dressing - Upper [place] E. Dressing - Lower modA F. Toileting Arina - Sphincter Control G. Bladder control Steffany H. Bowel control Steffany - Transfers Control I. Bed/Chair/Wheelchair modA J. Toilet modA K. Tub/Shower modA - Locomotion L. Walk/Wheelchair (B) modA M. Stairs ADNO - Communication N. Comprehension (B) Ind O. Expression (B) Ind - Social Cognition P. Social Interaction Ind Q. Problem Solving Ind R. Memory Ind - Endurance Fair - Balance Fair - Safety Awareness Good QI SCORES: - Self-Care A. Eating 06-Independent B. Oral hygiene 01-Dependent C. Toileting hygiene 02-Substantial/maximal assistance E. Shower/bathe self 02-Substantial/maximal assistance F. Upper body dressing 03-Partial/moderate assistance G. Lower body dressing 88-Not attempted due to medical condition or safety concerns H. Putting on/taking off footwear 03-Partial/moderate assistance - Mobility A. Roll left and right 04-Supervision or touching assistance B. Sit to lying 03-Partial/moderate assistance C. Lying to sitting on side of bed 03-Partial/moderate assistance D. Sit to stand 02-Substantial/maximal assistance E. Chair/gim-jm-[id number] transfer 02-Substantial/maximal assistance F. Toilet transfer 02-Substantial/maximal assistance G. Car transfer 88-Not attempted due to medical condition or safety concerns I. Walk 10 feet 88-Not attempted due to medical condition or safety concerns J. Walk 50 feet with two turns 88-Not attempted due to medical condition or safety concerns K. Walk 150 feet 88-Not attempted due to medical condition or safety concerns L. Walking 10 feet on uneven surfaces 88-Not attempted due to medical condition or safety concerns M. 1 step (curb) 88-Not attempted due to medical condition or safety concerns N. 4 steps 88-Not attempted due to medical condition or safety concerns O. 12 steps 88-Not attempted due to medical condition or safety concerns P. Picking up object 06-Independent R. Wheel 50 feet with two turns 88-Not attempted due to medical condition or safety concerns S. Wheel 150 feet 88-Not attempted due to medical condition or safety concerns - Bladder and Bowel Bladder continence 0-Always continent Bowel continence 0-Always continent - Endurance Fair - Balance Poor - Safety Awareness Fair CURRENT PENDING SALE TO [facility] DEFICITS: Mobility, Endurance, Balance, Safety Awareness, and Self-Care SIGNATURE PANEL: (CDT)
[2020-02-01] MEDS: MELATONIN 3 MG TABLET PO SCH (20:32)
[2020-02-01] MEDS: ATORVASTATIN 20 MG TAB PO SCH (20:32)
[2020-02-01] MEDS: TRAZODONE 50 MG TABLET PO PRN (20:33)
[2020-02-02] MEDS: INSULIN -REGULAR HUMAN 50 UNIT/0.5 ML ML SQ SCH ×4 (07:30→20:32)
[2020-02-02] MEDS: carvediloL 3.125 MG TAB PO SCH ×2 (08:00→20:14)
[2020-02-02] MEDS: NYSTATIN OINT 15 GM TUBE TOP SCH (08:00)
[2020-02-02] MEDS: FUROSEMIDE 20 MG TABLET PO SCH (08:00)
[2020-02-02] MEDS: PROMOD 30 ML DOSE PO SCH ×2 (08:00→20:16)
[2020-02-02] MEDS: SODIUM CHLORIDE 0.9% 10ML INJ IV SCH ×2 (08:00→20:16)
[2020-02-02] MEDS: CLOPIDOGREL 75 MG TABLET PO SCH (08:12)
[2020-02-02] MEDS: ASPIRIN EC 81 MG TAB PO SCH (08:13)
[2020-02-02] MEDS: FINASTERIDE 5 MG TAB PO SCH (08:13)
[2020-02-02] MEDS: GLIPIZIDE S.A. 5 MG TAB PO SCH ×2 (08:13→17:08)
[2020-02-02] MEDS: TAMSULOSIN 0.4 MG SR CAP PO SCH ×2 (08:13→20:15)
[2020-02-02] MEDS: FERROUS SULFATE 325 MG TAB PO SCH (08:13)
[2020-02-02] MEDS: FE SULF/FA/VIT B COMP & C TAB PO SCH (08:13)
[2020-02-02] MEDS: PANTOPRAZOLE 40MG TABLET PO SCH (08:13)
[2020-02-02] MEDS: gemfibroziL 600 MG TAB PO SCH ×2 (08:14→20:17)
[2020-02-02] MEDS: MEDIHONEY 44 ML TOPICAL TUBE TOP SCH (08:14)
[2020-02-02] MEDS: INSULIN GLARGINE 100 UNITS/ML SQ SCH ×2 (08:15→20:14)
[2020-02-02] MEDS: ACETAMINOPHEN 325 MG TABLET PO PRN ×2 (08:16→22:43)
[2020-02-02] MEDS: METFORMIN HCL 500 MG TAB PO SCH ×2 (08:19→17:08)
[2020-02-02] MEDS ORDERED: NYSTATIN OINT 15 GM TUBE TOP PRN (08:31)
[2020-02-02] MEDS: ENOXAPARIN 40 MG/0.4 ML SQ SCH (17:08)
--- NOTE | 2020-02-02 17:44 | R.PN ---
ENCOUNTER DATE AND TIME: 02/02/2020 17:38 (CDT) NAME JUAN DIEGO OLIVEIRA DATE OF : 1945 DATE OF ADMISSION: 01/24/2020 16:32 (CDT) CABGCHIEF COMPLAINT: S/P CABG for CAD SUBJECTIVE: Pt denied any depression. Pt denied any Shortness of Breath. WBC 6.4, Hgb 9.5, glucose 82 to 213, prealbumin 13.3, calcium 8.8. UA 1+ esterase bacteria < 20. Ambulated 70', 100' and 65' x 2, up and down 3 steps with bilateral handrails with minimum assistance using a rolling waker. Activities of daily living done with contact guard to independence. VITAL SIGNS Temperature: 97.0 F SBP/DBP: 100/68 Pulse: 88 Resp: 16 MEDICATION ALLERGIES: CIPROFLOXACIN PEN (PENICILLINS) ENVIRONMENTAL ALLERGIES: - Substance Allergies None Known - Other Allergies None Known NURSING: - Shower allowing shower ACTIVITIES OOB only with supervision THERAPIES: - Dietary and Nutrition Adequate Nutrition. Nutritional Education. Nutritional Supplements. PHYSICAL EXAM - Gen Alert and awake Sitting in chair No apparent distress Oriented to: person, time, and place - Skin No skin breakdown. Normacephalic - Eyes No abnormalities - ENMT No abnormalities - Neck No abnormalities - CVS RRR - Chest Mildly decreased breath sounds bilaterally. - Resp Clear to auscultation - Abd Soft - GI Non distended Deferred - No abnormalities - Ext Mild bilateral lower extremity edema. - MSK 4+/5 weakness in both lower extremities. - Neuro No focal deficits - Psych No abnormalities ASSESSMENT: Pt. is a 74 yo Right-handed white male.On 01/21/[address] [facility] with diag nosis CABG.His impairment category is Cardiac 09 - Cardiac Disorders (09).Pre-morbidly, Pt. was inde pendent/mod-I in Endurance, Self-Care, Locomotion, and Transfers Control; and he had good Safety Awar eness, Balance, Communication, Endurance, Social Cognition, and Sphincter Control.Currently, he has d eficits of Endurance, Self-Care, Transfers Control, Safety Awareness, and Locomotion.Pt. is now refer red to [facility] for acute in-patient rehabilitation in order to maximize pat ient's functional independence in activities of daily living, strength, ROM, and mobility.- Rehab Goa l Patient has realistic goal of being discharged at assistance level 6-Steffany to reside at Home with Fam amrik/Relatives. MDM/PLAN: - Physical Therapy Gait dysfunction - to improve, our physical therapists will perform initial evaluation of pt's statu s upon admission and devise an individualized program for Gait Training, and Wheel Chair mobility Inability to transfer - to improve, our physical therapists will perform initial evaluation of pt's status upon admission and devise an individualized program for Bed mobility Need for home safety evaluation - to improve, our physical therapists will perform initial evaluatio n of pt's status upon admission and devise an individualized program for Home Evaluation Need in caregiver upon discharge - to improve, our physical therapists will perform initial evaluati on of pt's status upon admission and devise an individualized program for Caregiver Training Edema - to improve, our physical therapists will perform initial evaluation of pt's status upon admi ssion and devise an individualized program for Elevation Training, and Lymphedema Therapy New precaution - to improve, our physical therapists will perform initial evaluation of pt's status upon admission and devise an individualized program for Patient precaution education Poor endurance - to improve, our physical therapists will perform initial evaluation of pt's status upon admission and devise an individualized program for Endurance Training Weakness - to improve, our physical therapists will perform initial evaluation of pt's status upon a dmission and devise an individualized program for Aquatic Therapy, Neuromuscular Reeducation, and Str engthening Achieving independence - to improve, our physical therapists will perform initial evaluation of pt's status upon admission and devise an individualized program for Community Reintegration Activities - Occupational Therapy ADL deficits - to improve, our occupation therapists will perform initial evaluation of pt's status upon admission and devise an individualized program for Bathing, Bed mobility, Community Reintegratio n, Cooking, Dressing, Eating, Fine Motor Skills, Grooming, Homemaking, Kitchen Mobility, Laundry, Pat ient Education, Safety Awareness, Splinting - Positioning, Transfers(Toilet, Tub, Shower), and Wheel Chair Management Need for childcare center director - to improve, our occupation therapists will perform initial evaluation of pt's status upon admission and devise an individualized program for Caregiver Training Weakness - to improve, our occupation therapists will perform initial evaluation of pt's status upon admission and devise an individualized program for Aquatic Therapy, Balance, Endurance, UE ROM, and UE strengthening - Other See attached MAR (Medication Administration Record) - Diet Type Continue Regular - Diet - Liquid Texture Continue Regular - Tube Feed Continue N/A - Diet - Solid Texture Continue Regular - Shower allowing shower FUNCTIONAL STATUS: UPDATED AT WEEKLY TEAM CONFERENCE - Bladder Same accident frequency: 7-Ind - No accidents in the past 7 days - Bowel Same accident frequency: 7-Ind - No accidents in the past 7 days - Walking Same score based on distance walked: 0(N/A) - Wheelchair Same score based on distance traveled: 1(<=50ft) FUNCTIONAL STATUS: - Self-Care A. Eating Ind B. Grooming Ind C. Bathing modA D. Dressing - Upper [place] E. Dressing - Lower modA F. Toileting Arina - Sphincter Control G. Bladder control Steffany H. Bowel control Steffany - Transfers Control I. Bed/Chair/Wheelchair modA J. Toilet modA K. Tub/Shower modA - Locomotion L. Walk/Wheelchair (B) modA M. Stairs ADNO - Communication N. Comprehension (B) Ind O. Expression (B) Ind - Social Cognition P. Social Interaction Ind Q. Problem Solving Ind R. Memory Ind - Endurance Fair - Balance Fair - Safety Awareness Good QI SCORES: - Self-Care A. Eating 06-Independent B. Oral hygiene 01-Dependent C. Toileting hygiene 02-Substantial/maximal assistance E. Shower/bathe self 02-Substantial/maximal assistance F. Upper body dressing 03-Partial/moderate assistance G. Lower body dressing 88-Not attempted due to medical condition or safety concerns H. Putting on/taking off footwear 03-Partial/moderate assistance - Mobility A. Roll left and right 04-Supervision or touching assistance B. Sit to lying 03-Partial/moderate assistance C. Lying to sitting on side of bed 03-Partial/moderate assistance D. Sit to stand 02-Substantial/maximal assistance E. Chair/yia-lr-zbzqd transfer 02-Substantial/maximal assistance F. Toilet transfer 02-Substantial/maximal assistance G. Car transfer 88-Not attempted due to medical condition or safety concerns I. Walk 10 feet 88-Not attempted due to medical condition or safety concerns J. Walk 50 feet with two turns 88-Not attempted due to medical condition or safety concerns K. Walk 150 feet 88-Not attempted due to medical condition or safety concerns L. Walking 10 feet on uneven surfaces 88-Not attempted due to medical condition or safety concerns M. 1 step (curb) 88-Not attempted due to medical condition or safety concerns N. 4 steps 88-Not attempted due to medical condition or safety concerns O. 12 steps 88-Not attempted due to medical condition or safety concerns P. Picking up object 06-Independent R. Wheel 50 feet with two turns 88-Not attempted due to medical condition or safety concerns S. Wheel 150 feet 88-Not attempted due to medical condition or safety concerns - Bladder and Bowel Bladder continence 0-Always continent Bowel continence 0-Always continent - Endurance Fair - Balance Poor - Safety Awareness Fair CURRENT [facility]. DEFICITS: Mobility, Endurance, Balance, Safety Awareness, and Self-Care SIGNATURE PANEL: (CDT)
[2020-02-02] MEDS: ATORVASTATIN 20 MG TAB PO SCH (20:15)
[2020-02-02] MEDS: MELATONIN 3 MG TABLET PO SCH (20:15)
[2020-02-02] MEDS: TRAZODONE 50 MG TABLET PO PRN (22:43)
[2020-02-03 05:55] LABS: Basophils % 0.7 % (0-1.3); Hematocrit 29.5 % (39.6-49.0); Lymphocytes % 13.7 % (15.3-44.8); MPV 6.8 fL (7.6-11.3); RBC Red Blood Cell Count 3.29 M/uL (4.33-5.43)
[2020-02-03 06:18] LABS: Albumin 2.6 g/dL (3.4-5.0); Magnesium 1.9 mg/dL (1.8-2.4); Potassium 3.5 mmol/L (3.5-5.1); Prealbumin 14.6 mg/dL (20-40)
[2020-02-03] MEDS: INSULIN -REGULAR HUMAN 50 UNIT/0.5 ML ML SQ SCH ×4 (07:10→20:11)
[2020-02-03] MEDS: SODIUM CHLORIDE 0.9% 10ML INJ IV SCH ×2 (08:00→20:00)
[2020-02-03] MEDS: PROMOD 30 ML DOSE PO SCH ×2 (08:07→20:11)
[2020-02-03] MEDS: PANTOPRAZOLE 40MG TABLET PO SCH (08:09)
[2020-02-03] MEDS: GLIPIZIDE S.A. 5 MG TAB PO SCH ×2 (08:10→16:47)
[2020-02-03] MEDS: TAMSULOSIN 0.4 MG SR CAP PO SCH ×2 (08:10→20:09)
[2020-02-03] MEDS: ACETAMINOPHEN 325 MG TABLET PO PRN ×2 (08:10→22:07)
[2020-02-03] MEDS: FE SULF/FA/VIT B COMP & C TAB PO SCH (08:10)
[2020-02-03] MEDS: ASPIRIN EC 81 MG TAB PO SCH (08:10)
[2020-02-03] MEDS: CLOPIDOGREL 75 MG TABLET PO SCH (08:10)
[2020-02-03] MEDS: gemfibroziL 600 MG TAB PO SCH ×2 (08:10→20:09)
[2020-02-03] MEDS: FERROUS SULFATE 325 MG TAB PO SCH (08:10)
[2020-02-03] MEDS: METFORMIN HCL 500 MG TAB PO SCH ×2 (08:10→16:47)
[2020-02-03] MEDS: INSULIN GLARGINE 100 UNITS/ML SQ SCH ×2 (08:11→20:10)
[2020-02-03] MEDS: MEDIHONEY 44 ML TOPICAL TUBE TOP SCH (08:11)
[2020-02-03] MEDS: FUROSEMIDE 20 MG TABLET PO SCH (08:11)
[2020-02-03] MEDS: FINASTERIDE 5 MG TAB PO SCH (08:11)
[2020-02-03] MEDS: carvediloL 3.125 MG TAB PO SCH ×2 (08:11→20:09)
--- NOTE | 2020-02-03 12:11 | FAST ---
ENCOUNTER DATE AND TIME: 02/03/2020 08:00 (CDT) NAME JUAN DIEGO OLIVEIRA DATE OF : 1945 DATE OF ADMISSION: 01/24/2020 16:32 (CDT) PHONE: AGE: 74 N# [id number] GENDER: Male ENCOUNTER PHYSICIAN: Dr. Eduardo Bajwa M.D. ADMISSION DIAGNOSIS: - Cardiac 09 - Cardiac Disorders () CABG. ROLL LEFT AND RIGHT: ROLL LEFT AND RIGHT - STEP 1: Does the patient complete the activity by him/herself with no assistance (physical, verbal/nonverbal cueing, setup/clean-up)? No. ROLL LEFT AND RIGHT - STEP 2: Does the patient need only setup/clean-up assistance from one helper? No. ROLL LEFT AND RIGHT - STEP 3: Does the patient need only verbal/nonverbal cueing or touching/steadying/contact guard assistance fro m one helper? Yes. 1. [id number] ADMISSION PERFORMANCE: Supervision or touching assistance CODE: 04 SIT TO LYING: SIT TO LYING - STEP 1: Does the patient complete the activity by him/herself with no assistance (physical, verbal/nonverbal cueing, setup/clean-up)? No. SIT TO LYING - STEP 2: Does the patient need only setup/clean-up assistance from one helper? No. SIT TO LYING - STEP 3: Does the patient need only verbal/nonverbal cueing or touching/steadying/contact guard assistance fro m one helper? Yes. 1. [id number] ADMISSION PERFORMANCE: Supervision or touching assistance CODE: 04 LYING TO SITTING: LYING TO SITTING ON SIDE OF BED - STEP 1: Does the patient complete the activity by him/herself with no assistance (physical, verbal/nonverbal cueing, setup/clean-up)? No. LYING TO SITTING ON SIDE OF BED - STEP 2: Does the patient need only setup/clean-up assistance from one helper? No. LYING TO SITTING ON SIDE OF BED - STEP 3: Does the patient need only verbal/nonverbal cueing or touching/steadying/contact guard assistance fro m one helper? Yes. 1. [id number] ADMISSION PERFORMANCE: Supervision or touching assistance CODE: 04 SIT TO STAND: SIT TO STAND - STEP 1: Does the patient complete the activity by him/herself with no assistance (physical, verbal/nonverbal cueing, setup/clean-up)? No. SIT TO STAND - STEP 2: Does the patient need only setup/clean-up assistance from one helper? No. SIT TO STAND - STEP 3: Does the patient need only verbal/nonverbal cueing or touching/steadying/contact guard assistance fro m one helper? No. SIT TO STAND - STEP 4: Does the patient need physical assistance - for example lifting or trunk support from one helper - wi th the helper providing less than half of the effort? Yes. 1. [id number] ADMISSION PERFORMANCE: Partial/moderate assistance CODE: 03 TRANSFERS: BED, CHAIR: CHAIR/[id number] TRANSFER - STEP 1: Does the patient complete the activity by him/herself with no assistance (physical, verbal/nonverbal cueing, setup/clean-up)? No. [id number] TRANSFER - STEP 2: Does the patient need only setup/clean-up assistance from one helper? Yes. 1. [id number] ADMISSION PERFORMANCE: Setup or clean-up assistance CODE: 05 TRANSFER TOILET: TOILET TRANSFER - STEP 1: Does the patient complete the activity by him/herself with no assistance (physical, verbal/nonverbal cueing, setup/clean-up)? No. TOILET TRANSFER - STEP 2: Does the patient need only setup/clean-up assistance from one helper? Yes. 1. [id number] ADMISSION PERFORMANCE: Setup or clean-up assistance CODE: 05 TRANSFERS: CAR: Not attempted due to medical condition or safety concerns CODE: 88 WALK 10 FEET: WALK 10 FEET - STEP 1: Does the patient complete the activity by him/herself with no assistance (physical, verbal/nonverbal cueing, setup/clean-up)? No. WALK 10 FEET - STEP 2: Does the patient need only setup/clean-up assistance from one helper? Yes. 1. [id number] ADMISSION PERFORMANCE: Setup or clean-up assistance CODE: 05 WALK 50 FEET: WALK 50 FEET - STEP 1: Does the patient complete the activity by him/herself with no assistance (physical, verbal/nonverbal cueing, setup/clean-up)? No. WALK 50 FEET - STEP 2: Does the patient need only setup/clean-up assistance from one helper? Yes. 1. [id number] ADMISSION PERFORMANCE: Setup or clean-up assistance CODE: 05 WALK 150 FEET: Not attempted due to medical condition or safety concerns CODE: 88 WALK 10 FEET UNEVEN: Not attempted due to medical condition or safety concerns CODE: 88 1 STEP (CURB): Not attempted due to medical condition or safety concerns CODE: 88 PICKING UP OBJECT: Not attempted due to medical condition or safety concerns CODE: 88 DOES THE PATIENT USE A WHEELCHAIR/SCOOTER? Q1. DOES THE PATIENT USE A WHEELCHAIR/SCOOTER?: Yes CODE: 1 WHEEL 50 FEET WITH TWO TURNS: WHEEL 50 FEET WITH TWO TURNS - STEP 1: Does the patient complete the activity by him/herself with no assistance (physical, verbal/nonverbal cueing, setup/clean-up)? No. WHEEL 50 FEET WITH TWO TURNS - STEP 2: Does the patient need only setup/clean-up assistance from one helper? Yes. 1. [id number] ADMISSION PERFORMANCE: Setup or clean-up assistance CODE: 05 INDICATE THE TYPE OF WHEELCHAIR/SCOOTER USED: RR1. INDICATE THE TYPE OF WHEELCHAIR/SCOOTER USED.: Manual CODE: 1 WHEEL 150 FEET: WHEEL 150 FEET - STEP 1: Does the patient complete the activity by him/herself with no assistance (physical, verbal/nonverbal cueing, setup/clean-up)? No. WHEEL 150 FEET - STEP 2: Does the patient need only setup/clean-up assistance from one helper? Yes. 1. [id number] ADMISSION PERFORMANCE: Setup or clean-up assistance CODE: 05 INDICATE THE TYPE OF WHEELCHAIR/SCOOTER USED: SS1. INDICATE THE TYPE OF WHEELCHAIR/SCOOTER USED.: Manual CODE: 1 BLADDER AND BOWEL: CODE: EXPR CODE: EXPR SIGNATURE PANEL: The following modified sections: 1. [id number] Admission Performance, 1. [id number] Admission Performance, 1. [id number] Admission Performance, 1. [id number] Admission Performance, 1. [id number] Admission Performance, 1. [id number] Admission Performance, 1. [id number] Admission Performance, 1. [id number] Admission Performance , 1. [id number] Admission Performance, Q1. Does the patient use a wheelchair/scooter?, 1. [id number] Admiss ion Performance, RR1. Indicate the type of wheelchair/scooter used., 1. [id number] Admission Performance , Code, SS1. Indicate the type of wheelchair/scooter used. were [electronically] signed by Kari price PTA on FriFeb 03 2020 12:09:58 GMT-0500 (Central Daylight Time)
--- NOTE | 2020-02-03 19:26 | R.PN ---
ENCOUNTER DATE AND TIME: 02/03/2020 19:21 (CDT) NAME JUAN DIEGO OLIVEIRA DATE OF : 1945 DATE OF ADMISSION: 01/24/2020 16:32 (CDT) CABGCHIEF COMPLAINT: S/P CABG for CAD SUBJECTIVE: Pt denied any depression. Pt denied any Shortness of Breath. WBC 7.2 Hgb 9.5, glucose 85 to 174, prealbumin 14.6, calcium 8.8. UA 1+ esterase bacteria < 20. Ambulated 40', 80' and 50'. His O2 sat dropped to 80 %. Up and down 3 steps with bilateral handrails with minimum assistance using a rolling waker. Activities of daily living done with contact guard to independence. VITAL SIGNS Temperature: 97.0 F SBP/DBP: 137/65 Pulse: 86 Resp: 16 MEDICATION ALLERGIES: CIPROFLOXACIN PEN (PENICILLINS) ENVIRONMENTAL ALLERGIES: - Substance Allergies None Known - Other Allergies None Known NURSING: - Shower allowing shower ACTIVITIES OOB only with supervision THERAPIES: - Dietary and Nutrition Adequate Nutrition. Nutritional Education. Nutritional Supplements. PHYSICAL EXAM - Gen Alert and awake Sitting in chair No apparent distress Oriented to: person, time, and place - Skin No skin breakdown. Normacephalic - Eyes No abnormalities - ENMT No abnormalities - Neck No abnormalities - CVS RRR - Chest Mildly decreased breath sounds bilaterally. - Resp Clear to auscultation - Abd Soft - GI Non distended Deferred - No abnormalities - Ext Mild bilateral lower extremity edema. - MSK 4+/5 weakness in both lower extremities. - Neuro No focal deficits - Psych No abnormalities ASSESSMENT: Pt. is a 74 yo Right-handed white male.On 01/21/2020 he was admitted to [facility] with diag demetriusis CABG.His impairment category is Cardiac 09 - Cardiac Disorders (09).Pre-morbidly, Pt. was inde pendent/mod-I in Endurance, Self-Care, Locomotion, and Transfers Control; and he had good Safety Awar eness, Balance, Communication, Endurance, Social Cognition, and Sphincter Control.Currently, he has d eficits of Endurance, Self-Care, Transfers Control, Safety Awareness, and Locomotion.Pt. is now refer red to [facility] for acute in-patient rehabilitation in order to maximize pat ient's functional independence in activities of daily living, strength, ROM, and mobility.- Rehab Goa l Patient has realistic goal of being discharged at assistance level 6-Steffany to reside at Home with Fam amrik/Relatives. MDM/PLAN: - Physical Therapy Gait dysfunction - to improve, our physical therapists will perform initial evaluation of pt's statu s upon admission and devise an individualized program for Gait Training, and Wheel Chair mobility Inability to transfer - to improve, our physical therapists will perform initial evaluation of pt's status upon admission and devise an individualized program for Bed mobility Need for home safety evaluation - to improve, our physical therapists will perform initial evaluatio n of pt's status upon admission and devise an individualized program for Home Evaluation Need in caregiver upon discharge - to improve, our physical therapists will perform initial evaluati on of pt's status upon admission and devise an individualized program for Caregiver Training Edema - to improve, our physical therapists will perform initial evaluation of pt's status upon admi ssion and devise an individualized program for Elevation Training, and Lymphedema Therapy New precaution - to improve, our physical therapists will perform initial evaluation of pt's status upon admission and devise an individualized program for Patient precaution education Poor endurance - to improve, our physical therapists will perform initial evaluation of pt's status upon admission and devise an individualized program for Endurance Training Weakness - to improve, our physical therapists will perform initial evaluation of pt's status upon a dmission and devise an individualized program for Aquatic Therapy, Neuromuscular Reeducation, and Str engthening Achieving independence - to improve, our physical therapists will perform initial evaluation of pt's status upon admission and devise an individualized program for Community Reintegration Activities - Occupational Therapy ADL deficits - to improve, our occupation therapists will perform initial evaluation of pt's status upon admission and devise an individualized program for Bathing, Bed mobility, Community Reintegratio n, Cooking, Dressing, Eating, Fine Motor Skills, Grooming, Homemaking, Kitchen Mobility, Laundry, Pat ient Education, Safety Awareness, Splinting - Positioning, Transfers(Toilet, Tub, Shower), and Wheel Chair Management Need for companion caregiver - to improve, our occupation therapists will perform initial evaluation of pt's status upon admission and devise an individualized program for Caregiver Training Weakness - to improve, our occupation therapists will perform initial evaluation of pt's status upon admission and devise an individualized program for Aquatic Therapy, Balance, Endurance, UE ROM, and UE strengthening - Other See attached MAR (Medication Administration Record) - Diet Type Continue Regular - Diet - Liquid Texture Continue Regular - Tube Feed Continue N/A - Diet - Solid Texture Continue Regular - Shower allowing shower FUNCTIONAL STATUS: UPDATED AT WEEKLY TEAM CONFERENCE - Bladder Same accident frequency: 7-Ind - No accidents in the past 7 days - Bowel Same accident frequency: 7-Ind - No accidents in the past 7 days - Walking Same score based on distance walked: 0(N/A) - Wheelchair Same score based on distance traveled: 1(<=50ft) FUNCTIONAL STATUS: - Self-Care A. Eating Ind B. Grooming Ind C. Bathing modA D. Dressing - Upper [place] E. Dressing - Lower modA F. Toileting Arina - Sphincter Control G. Bladder control Steffany H. Bowel control Steffany - Transfers Control I. Bed/Chair/Wheelchair modA J. Toilet modA K. Tub/Shower modA - Locomotion L. Walk/Wheelchair (B) modA M. Stairs ADNO - Communication N. Comprehension (B) Ind O. Expression (B) Ind - Social Cognition P. Social Interaction Ind Q. Problem Solving Ind R. Memory Ind - Endurance Fair - Balance Fair - Safety Awareness Good QI SCORES: - Self-Care A. Eating 06-Independent B. Oral hygiene 01-Dependent C. Toileting hygiene 02-Substantial/maximal assistance E. Shower/bathe self 02-Substantial/maximal assistance F. Upper body dressing 03-Partial/moderate assistance G. Lower body dressing 88-Not attempted due to medical condition or safety concerns H. Putting on/taking off footwear 03-Partial/moderate assistance - Mobility A. Roll left and right 04-Supervision or touching assistance B. Sit to lying 03-Partial/moderate assistance C. Lying to sitting on side of bed 03-Partial/moderate assistance D. Sit to stand 02-Substantial/maximal assistance E. Chair/[id number] transfer 02-Substantial/maximal assistance F. Toilet transfer 02-Substantial/maximal assistance G. Car transfer 88-Not attempted due to medical condition or safety concerns I. Walk 10 feet 88-Not attempted due to medical condition or safety concerns J. Walk 50 feet with two turns 88-Not attempted due to medical condition or safety concerns K. Walk 150 feet 88-Not attempted due to medical condition or safety concerns L. Walking 10 feet on uneven surfaces 88-Not attempted due to medical condition or safety concerns M. 1 step (curb) 88-Not attempted due to medical condition or safety concerns N. 4 steps 88-Not attempted due to medical condition or safety concerns O. 12 steps 88-Not attempted due to medical condition or safety concerns P. Picking up object 06-Independent R. Wheel 50 feet with two turns 88-Not attempted due to medical condition or safety concerns S. Wheel 150 feet 88-Not attempted due to medical condition or safety concerns - Bladder and Bowel Bladder continence 0-Always continent Bowel continence 0-Always continent - Endurance Fair - Balance Poor - Safety Awareness Fair [facility]RENT [facility] DEFICITS: Mobility, Endurance, Balance, Safety Awareness, and Self-Care SIGNATURE PANEL: (CDT)
[2020-02-03] MEDS: APIXABAN 2.5 MG TABLET PO SCH (20:09)
[2020-02-03] MEDS: ATORVASTATIN 20 MG TAB PO SCH (20:10)
[2020-02-03] MEDS: MELATONIN 3 MG TABLET PO SCH (20:10)
[2020-02-03] MEDS: TRAZODONE 50 MG TABLET PO PRN (22:08)
[2020-02-04] MEDS: INSULIN -REGULAR HUMAN 50 UNIT/0.5 ML ML SQ SCH ×4 (07:30→21:00)
[2020-02-04] MEDS: SODIUM CHLORIDE 0.9% 10ML INJ IV SCH ×2 (08:00→20:32)
[2020-02-04] MEDS: carvediloL 3.125 MG TAB PO SCH ×2 (08:00→20:33)
[2020-02-04] MEDS: TAMSULOSIN 0.4 MG SR CAP PO SCH ×2 (08:45→20:31)
[2020-02-04] MEDS: FE SULF/FA/VIT B COMP & C TAB PO SCH (08:45)
[2020-02-04] MEDS: MEDIHONEY 44 ML TOPICAL TUBE TOP SCH (08:45)
[2020-02-04] MEDS: FERROUS SULFATE 325 MG TAB PO SCH (08:45)
[2020-02-04] MEDS: METFORMIN HCL 500 MG TAB PO SCH ×2 (08:46→16:59)
[2020-02-04] MEDS: FINASTERIDE 5 MG TAB PO SCH (08:46)
[2020-02-04] MEDS: APIXABAN 2.5 MG TABLET PO SCH ×2 (08:46→20:31)
[2020-02-04] MEDS: FUROSEMIDE 20 MG TABLET PO SCH (08:46)
[2020-02-04] MEDS: ASPIRIN EC 81 MG TAB PO SCH (08:46)
[2020-02-04] MEDS: GLIPIZIDE S.A. 5 MG TAB PO SCH ×2 (08:47→16:59)
[2020-02-04] MEDS: ACETAMINOPHEN 325 MG TABLET PO PRN (08:47)
[2020-02-04] MEDS: CLOPIDOGREL 75 MG TABLET PO SCH (08:47)
[2020-02-04] MEDS: gemfibroziL 600 MG TAB PO SCH ×2 (08:48→20:32)
[2020-02-04] MEDS: INSULIN GLARGINE 100 UNITS/ML SQ SCH ×2 (08:48→22:06)
[2020-02-04] MEDS: PANTOPRAZOLE 40MG TABLET PO SCH (08:48)
[2020-02-04] MEDS: PROMOD 30 ML DOSE PO SCH ×2 (08:50→22:07)
--- NOTE | 2020-02-04 09:49 | P.RH.PN ---
Estimated Length of Stay: 24 Expected Discharge Date: 02/11/20 Discharge Disposition Plan: Home Family Support: Yes Care Home Goal: Mobility, Transfers, Self Care Vital Signs: Last Vital Signs Temp 97.4 F 02/04/20 07:24 Pulse 91 H 02/04/20 08:46 Resp 18 02/04/20 07:24 BP 120/60 02/04/20 08:46 Pulse Ox 95 02/04/20 07:24 Laboratory: Laboratory Last Values WBC 7.2 K/uL (4.3-10.9) 02/03/20 05:30 RBC 3.29 M/uL (4.33-5.43) L 02/03/20 05:30 Hgb 9.5 g/dL (13.6-17.9) L 02/03/20 05:30 Hct 29.5 % (39.6-49.0) L 02/03/20 05:30 MCV 89.8 fL (80-100) 02/03/20 05:30 MCH 29.0 pg (27.0-35.0) 02/03/20 05:30 MCHC 32.3 g/dL (32.0-36.0) 02/03/20 05:30 RDW 16.2 % (12.1-15.2) H 02/03/20 05:30 Plt Count 301 K/uL (152-406) 02/03/20 05:30 MPV 6.8 fL (7.6-11.3) L 02/03/20 05:30 Neutrophils % 69.6 % (41.7-73.7) 02/03/20 05:30 Lymphocytes % 13.7 % (15.3-44.8) L 02/03/20 05:30 Monocytes % 9.8 % (3.3-12.3) 02/03/20 05:30 Eosinophils % 6.2 % (0-4.4) H 02/03/20 05:30 Basophils % 0.7 % (0-1.3) 02/03/20 05:30 Absolute Neutrophils 5.0 K/uL (1.8-8.0) 02/03/20 05:30 Absolute Lymphocytes 1.0 K/uL (0.7-4.9) 02/03/20 05:30 Absolute Monocytes 0.7 K/uL (0.1-1.3) 02/03/20 05:30 Absolute Eosinophils 0.4 K/uL (0-0.5) 02/03/20 05:30 Absolute Basophils 0.1 K/uL (0-0.5) 02/03/20 05:30 Sodium 142 mmol/L (136-145) 02/03/20 05:30 Potassium 3.5 mmol/L (3.5-5.1) 02/03/20 05:30 Chloride 108 mmol/L (98-107) H 02/03/20 05:30 Carbon Dioxide 29 mmol/L (21-32) 02/03/20 05:30 BUN 30 mg/dL (7-18) H 02/03/20 05:30 Creatinine 1.14 mg/dL (0.55-1.3) 02/03/20 05:30 Estimated GFR 63 mL/min (=/>90) L 02/03/20 05:30 Glucose 85 mg/dL (74-106) 02/03/20 05:30 POC Glucose 76 mg/dl (65-120) 02/04/20 07:54 Calcium 8.7 mg/dL (8.5-10.1) 02/03/20 05:30 Magnesium 1.9 mg/dL (1.8-2.4) 02/03/20 05:30 Total Bilirubin 0.7 mg/dL (0.2-1.0) 01/27/20 05:55 AST 15 U/L (15-37) 01/27/20 05:55 ALT 12 U/L (12-78) 01/27/20 05:55 Alkaline Phosphatase 137 U/L (45-117) H 01/27/20 05:55 Serum Total Protein 7.0 g/dL (6.4-8.2) 01/27/20 05:55 Albumin 2.6 g/dL (3.4-5.0) L 02/03/20 05:30 Globulin 4.4 g/dL (2.3-3.5) H 01/27/20 05:55 Albumin/Globulin Ratio 0.6 (1.1-1.8) L 01/27/20 05:55 Prealbumin 14.6 mg/dL (20-40) L 02/03/20 05:30 Urine Color Yellow 01/24/20 16:50 Urine Appearance Clear 01/24/20 16:50 Urine pH 6.0 (5.0-7.0) 01/24/20 16:50 Ur Specific [place] 1.010 (1.005-1.030) 01/24/20 16:50 Glucose (UA)(Auto) 1+ (NEG) H 01/24/20 16:50 Urine Ketones Negative (NEG) 01/24/20 16:50 Urine Blood Trace (NEG) H 01/24/20 16:50 Urine Nitrite Negative (NEG) 01/24/20 16:50 Urine Bilirubin Negative (NEG) 01/24/20 16:50 Urine Urobilinogen 1.0 mg/dL (0.2-1.0) 01/24/20 16:50 Ur Leukocyte Esterase 1+ (NEG) H 01/24/20 16:50 Urine RBC 5-10 /HPF (NONE SEEN) H 01/24/20 16:50 Urine WBC 5-10 /HPF (<5) H 01/24/20 16:50 Ur Squamous Epith Cells <5 /HPF (NONE SEEN) 01/24/20 16:50 Urine Bacteria <20 /HPF (NONE SEEN) 01/24/20 16:50 Urine Mucus 1+ /HPF (NONE SEEN) 01/24/20 16:50 Urine Culture Reflexed Not needed 01/24/20 16:50 Urine Total Protein Negative (NEG) 01/24/20 16:50 C. difficile Ag & Toxin Ag neg : tox neg (NEG : NEG) 01/27/20 08:05 Weight: 240 lb 4.8 oz Within Defined Parameters: No Sacrum Skin Alteration: skin tear calazime applied Wound Present: Yes Closed Surgical Incision Present: Yes Negative Pressure Wound Therapy Present: No Physician Update: His blood work is good. His pain is managed. He is doing better functionally. Requires standby to minimum assistance. He follows sternal precautions. He is contact guard to min assistance. He still requires O2 when exercising. Functional Improvement: Patient has shown improvment w/ transfers and gait tx. and continues to progress toward meeting goals. Patient requires VC for sternal precautions approx. 25% of the time, however follows instructions well. Summary: Patient's care plan and fpc goals have been reviewed and revised as necessary. Please see the Rehabilitation Signature page for all necessary signatures.
--- NOTE | 2020-02-04 13:49 | FAST ---
ENCOUNTER DATE AND TIME: 02/04/2020 08:00 (CDT) NAME JUAN DIEGO OLIVEIRA DATE OF : 1945 DATE OF ADMISSION: 01/24/2020 16:32 (CDT) PHONE: AGE: 74 SSN# [id number] GENDER: Male ENCOUNTER PHYSICIAN: Dr. Eduardo Bajwa M.D. ADMISSION DIAGNOSIS: - Cardiac 09 - Cardiac Disorders () CABG. EATING: Not assessed/no information CODE: - ORAL HYGIENE: ORAL HYGIENE - STEP 1: Does the patient complete the activity by him/herself with no assistance (physical, verbal/nonverbal cueing, setup/clean-up)? Yes. 1. [id number] ADMISSION PERFORMANCE: Independent CODE: 06 TOILETING HYGIENE: Not assessed/no information CODE: - BATHING: SHOWER/BATHE SELF - STEP 1: Does the patient complete the activity by him/herself with no assistance (physical, verbal/nonverbal cueing, setup/clean-up)? No. SHOWER/BATHE SELF - STEP 2: Does the patient need only setup/clean-up assistance from one helper? No. SHOWER/BATHE SELF - STEP 3: Does the patient need only verbal/nonverbal cueing or touching/steadying/contact guard assistance fro m one helper? Yes. 1. [id number] ADMISSION PERFORMANCE: Supervision or touching assistance CODE: 04 DRESSING - UPPER BODY: DRESSING - UPPER BODY - STEP 1: Does the patient complete the activity by him/herself with no assistance (physical, verbal/nonverbal cueing, setup/clean-up)? No. DRESSING - UPPER BODY - STEP 2: Does the patient need only setup/clean-up assistance from one helper? No. DRESSING - UPPER BODY - STEP 3: Does the patient need only verbal/nonverbal cueing or touching/steadying/contact guard assistance fro m one helper? Yes. 1. [id number] ADMISSION PERFORMANCE: Supervision or touching assistance CODE: 04 DRESSING - LOWER BODY: DRESSING - LOWER BODY - STEP 1: Does the patient complete the activity by him/herself with no assistance (physical, verbal/nonverbal cueing, setup/clean-up)? No. DRESSING - LOWER BODY - STEP 2: Does the patient need only setup/clean-up assistance from one helper? No. DRESSING - LOWER BODY - STEP 3: Does the patient need only verbal/nonverbal cueing or touching/steadying/contact guard assistance fro m one helper? Yes. 1. [id number] ADMISSION PERFORMANCE: Supervision or touching assistance CODE: 04 PUTTING ON/TAKING OFF FOOTWEAR: FOOTWEAR - STEP 1: Does the patient complete the activity by him/herself with no assistance (physical, verbal/nonverbal cueing, setup/clean-up)? No. FOOTWEAR - STEP 2: Does the patient need only setup/clean-up assistance from one helper? No. FOOTWEAR - STEP 3: Does the patient need only verbal/nonverbal cueing or touching/steadying/contact guard assistance fro m one helper? Yes. 1. [id number] ADMISSION PERFORMANCE: Supervision or touching assistance CODE: 04 DOES THE PATIENT USE A WHEELCHAIR/SCOOTER? CODE: EXPR INDICATE THE TYPE OF WHEELCHAIR/SCOOTER USED: CODE: EXPR INDICATE THE TYPE OF WHEELCHAIR/SCOOTER USED: CODE: EXPR BLADDER AND BOWEL: CODE: EXPR CODE: EXPR SIGNATURE PANEL: The following modified sections: 1. [id number] Admission Performance, 1. [id number] Admission Performance, 1. [id number] Admission Performance, 1. [id number] Admission Performance, 1. [id number] Admission Performance were [electronically] signed by CHEIKH Choi on FriFeb 04 2020 13:48:58 GMT-0500 (Central Daylight Time)
[2020-02-04] MEDS: ATORVASTATIN 20 MG TAB PO SCH (20:31)
[2020-02-04] MEDS: MELATONIN 3 MG TABLET PO SCH (20:31)
[2020-02-04] MEDS: TRAZODONE 50 MG TABLET PO PRN (22:30)
--- NOTE | 2020-02-05 02:28 | FAST ---
SHIFT START DATE/TIME: 02/04/2020 19:00 (CDT) SHIFT END DATE/TIME: 02/05/2020 07:00 (CDT) NAME JUAN DIEGO OLIVEIRA DATE OF : 1945 DATE OF ADMISSION: 01/24/2020 16:32 (CDT) PHONE: AGE: 74 N# [id number] GENDER: Male ENCOUNTER PHYSICIAN: Dr. Eduardo Bajwa M.D. ADMISSION DIAGNOSIS: - Cardiac 09 - Cardiac Disorders () CABG. EATING: Not assessed/no information CODE: - ORAL HYGIENE: Not assessed/no information CODE: - TOILETING HYGIENE: TOILETING HYGIENE - STEP 1: Does the patient complete the activity by him/herself with no assistance (physical, verbal/nonverbal cueing, setup/clean-up)? No. TOILETING HYGIENE - STEP 2: Does the patient need only setup/clean-up assistance from one helper? No. TOILETING HYGIENE - STEP 3: Does the patient need only verbal/nonverbal cueing or touching/steadying/contact guard assistance fro m one helper? No. TOILETING HYGIENE - STEP 4: Does the patient need physical assistance - for example lifting or trunk support from one helper - wi th the helper providing less than half of the effort? Yes. 1. [id number] ADMISSION PERFORMANCE: Partial/moderate assistance CODE: 03 BATHING: Not assessed/no information CODE: - DRESSING - UPPER BODY: Not assessed/no information CODE: - DRESSING - LOWER BODY: Not assessed/no information CODE: - PUTTING ON/TAKING OFF FOOTWEAR: Not assessed/no information CODE: - ROLL LEFT AND RIGHT: ROLL LEFT AND RIGHT - STEP 1: Does the patient complete the activity by him/herself with no assistance (physical, verbal/nonverbal cueing, setup/clean-up)? No. ROLL LEFT AND RIGHT - STEP 2: Does the patient need only setup/clean-up assistance from one helper? No. ROLL LEFT AND RIGHT - STEP 3: Does the patient need only verbal/nonverbal cueing or touching/steadying/contact guard assistance fro m one helper? No. ROLL LEFT AND RIGHT - STEP 4: Does the patient need physical assistance - for example lifting or trunk support from one helper - wi th the helper providing less than half of the effort? Yes. 1. [id number] ADMISSION PERFORMANCE: Partial/moderate assistance CODE: 03 SIT TO LYING: SIT TO LYING - STEP 1: Does the patient complete the activity by him/herself with no assistance (physical, verbal/nonverbal cueing, setup/clean-up)? No. SIT TO LYING - STEP 2: Does the patient need only setup/clean-up assistance from one helper? No. SIT TO LYING - STEP 3: Does the patient need only verbal/nonverbal cueing or touching/steadying/contact guard assistance fro m one helper? No. SIT TO LYING - STEP 4: Does the patient need physical assistance - for example lifting or trunk support from one helper - wi th the helper providing less than half of the effort? Yes. 1. [id number] ADMISSION PERFORMANCE: Partial/moderate assistance CODE: 03 LYING TO SITTING: LYING TO SITTING ON SIDE OF BED - STEP 1: Does the patient complete the activity by him/herself with no assistance (physical, verbal/nonverbal cueing, setup/clean-up)? No. LYING TO SITTING ON SIDE OF BED - STEP 2: Does the patient need only setup/clean-up assistance from one helper? No. LYING TO SITTING ON SIDE OF BED - STEP 3: Does the patient need only verbal/nonverbal cueing or touching/steadying/contact guard assistance fro m one helper? No. LYING TO SITTING ON SIDE OF BED - STEP 4: Does the patient need physical assistance - for example lifting or trunk support from one helper - wi th the helper providing less than half of the effort? Yes. 1. [id number] ADMISSION PERFORMANCE: Partial/moderate assistance CODE: 03 SIT TO STAND: SIT TO STAND - STEP 1: Does the patient complete the activity by him/herself with no assistance (physical, verbal/nonverbal cueing, setup/clean-up)? No. SIT TO STAND - STEP 2: Does the patient need only setup/clean-up assistance from one helper? No. SIT TO STAND - STEP 3: Does the patient need only verbal/nonverbal cueing or touching/steadying/contact guard assistance fro m one helper? No. SIT TO STAND - STEP 4: Does the patient need physical assistance - for example lifting or trunk support from one helper - wi th the helper providing less than half of the effort? Yes. 1. [id number] ADMISSION PERFORMANCE: Partial/moderate assistance CODE: 03 TRANSFERS: BED, CHAIR: Not assessed/no information CODE: - TRANSFER TOILET: Not assessed/no information CODE: - TRANSFERS: CAR: Not assessed/no information CODE: - WALK 10 FEET: Not assessed/no information CODE: - 1 STEP (CURB): Not assessed/no information CODE: - PICKING UP OBJECT: Not assessed/no information CODE: - DOES THE PATIENT USE A WHEELCHAIR/SCOOTER? CODE: EXPR WHEEL 50 FEET WITH TWO TURNS: Not assessed/no information CODE: - INDICATE THE TYPE OF WHEELCHAIR/SCOOTER USED: CODE: EXPR WHEEL 150 FEET: Not assessed/no information CODE: - INDICATE THE TYPE OF WHEELCHAIR/SCOOTER USED: CODE: EXPR BLADDER AND BOWEL: H350. BLADDER CONTINENCE (3-DAY ASSESSMENT PERIOD): Always continent (no documented incontinence) CODE: 0 H400. BOWEL CONTINENCE (3-DAY ASSESSMENT PERIOD): Always continent CODE: 0
[2020-02-05 05:49] VITALS: BMI 37.3
[2020-02-05] MEDS: PANTOPRAZOLE 40MG TABLET PO SCH (07:15)
[2020-02-05] MEDS: SODIUM CHLORIDE 0.9% 10ML INJ IV SCH ×4 (07:16→20:00)
[2020-02-05] MEDS: INSULIN -REGULAR HUMAN 50 UNIT/0.5 ML ML SQ SCH ×4 (07:18→20:22)
[2020-02-05] MEDS: INSULIN GLARGINE 100 UNITS/ML SQ SCH ×2 (07:38→20:21)
[2020-02-05] MEDS: MEDIHONEY 44 ML TOPICAL TUBE TOP SCH (07:38)
[2020-02-05] MEDS: METFORMIN HCL 500 MG TAB PO SCH ×2 (07:39→16:42)
[2020-02-05] MEDS: GLIPIZIDE S.A. 5 MG TAB PO SCH ×2 (07:39→16:42)
[2020-02-05] MEDS: gemfibroziL 600 MG TAB PO SCH ×2 (07:39→20:21)
[2020-02-05] MEDS: FINASTERIDE 5 MG TAB PO SCH (07:39)
[2020-02-05] MEDS: ASPIRIN EC 81 MG TAB PO SCH (07:39)
[2020-02-05] MEDS: APIXABAN 2.5 MG TABLET PO SCH ×2 (07:39→20:21)
[2020-02-05] MEDS: FE SULF/FA/VIT B COMP & C TAB PO SCH (07:40)
[2020-02-05] MEDS: TAMSULOSIN 0.4 MG SR CAP PO SCH ×2 (07:40→20:20)
[2020-02-05] MEDS: FUROSEMIDE 20 MG TABLET PO SCH (07:40)
[2020-02-05] MEDS: CLOPIDOGREL 75 MG TABLET PO SCH (07:40)
[2020-02-05] MEDS: FERROUS SULFATE 325 MG TAB PO SCH (07:40)
[2020-02-05] MEDS: carvediloL 3.125 MG TAB PO SCH ×2 (07:40→20:21)
[2020-02-05] MEDS: PROMOD 30 ML DOSE PO SCH ×2 (07:42→20:22)
[2020-02-05] MEDS: ACETAMINOPHEN 325 MG TABLET PO PRN ×2 (10:04→20:34)
[2020-02-05] MEDS: ATORVASTATIN 20 MG TAB PO SCH (20:20)
[2020-02-05] MEDS: MELATONIN 3 MG TABLET PO SCH (20:21)
[2020-02-05] MEDS: TRAZODONE 50 MG TABLET PO PRN (20:22)
[2020-02-06] MEDS: PANTOPRAZOLE 40MG TABLET PO SCH (06:39)
[2020-02-06] MEDS: ACETAMINOPHEN 325 MG TABLET PO PRN ×2 (06:39→14:22)
[2020-02-06] MEDS: SODIUM CHLORIDE 0.9% 10ML INJ IV SCH ×2 (06:40→20:00)
[2020-02-06] MEDS: INSULIN -REGULAR HUMAN 50 UNIT/0.5 ML ML SQ SCH ×4 (07:30→20:12)
[2020-02-06] MEDS: GLIPIZIDE S.A. 5 MG TAB PO SCH ×2 (07:58→17:14)
[2020-02-06] MEDS: gemfibroziL 600 MG TAB PO SCH ×2 (07:58→20:11)
[2020-02-06] MEDS: INSULIN GLARGINE 100 UNITS/ML SQ SCH ×2 (07:58→20:11)
[2020-02-06] MEDS: APIXABAN 2.5 MG TABLET PO SCH ×2 (07:58→20:11)
[2020-02-06] MEDS: ASPIRIN EC 81 MG TAB PO SCH (07:59)
[2020-02-06] MEDS: METFORMIN HCL 500 MG TAB PO SCH ×2 (07:59→17:14)
[2020-02-06] MEDS: carvediloL 3.125 MG TAB PO SCH ×2 (07:59→20:00)
[2020-02-06] MEDS: FUROSEMIDE 20 MG TABLET PO SCH (07:59)
[2020-02-06] MEDS: TAMSULOSIN 0.4 MG SR CAP PO SCH ×2 (07:59→20:11)
[2020-02-06] MEDS: FERROUS SULFATE 325 MG TAB PO SCH (07:59)
[2020-02-06] MEDS: CLOPIDOGREL 75 MG TABLET PO SCH (08:00)
[2020-02-06] MEDS: FINASTERIDE 5 MG TAB PO SCH (08:00)
[2020-02-06] MEDS: FE SULF/FA/VIT B COMP & C TAB PO SCH (08:00)
[2020-02-06] MEDS: MEDIHONEY 44 ML TOPICAL TUBE TOP SCH (08:00)
[2020-02-06] MEDS: PROMOD 30 ML DOSE PO SCH (08:00)
--- NOTE | 2020-02-06 15:56 | RAD REPORT ---
EXAM DESCRIPTION: CT - Thorax Wo Con CLINICAL HISTORY: Chest pain shortness of breath. R/o pneumonia COMPARISON: Chest Single View dated 01/21/2020 FINDINGS: Advanced emphysematous changes are present throughout the lungs. 6 mm nodule is present in the right middle lobe, subpleural location (image 34/60). Small left pleural effusion. No pneumothor ax. Postsurgical changes of the mediastinum noted. No concerning bony finding. No gross upper abdominal finding. All CT scans are performed using dose optimization technique as appropriate and may include automated exposure control or mA/KV adjustment according to patient size. IMPRESSION: Prominent COPD is seen without evidence of acute infiltrate. Small left pleural effusion.
[2020-02-06] MEDS: TRAMADOL HCL 50 MG TAB PO SCH (20:11)
[2020-02-06] MEDS: TRAZODONE 50 MG TABLET PO PRN (20:11)
[2020-02-06] MEDS: ATORVASTATIN 20 MG TAB PO SCH (20:11)
[2020-02-06] MEDS: MELATONIN 3 MG TABLET PO SCH (20:11)
[2020-02-07] MEDS: ACETAMINOPHEN 325 MG TABLET PO PRN ×3 (00:44→16:12)
[2020-02-07 02:17] LABS: Absolute Lymphocytes (CBC) 1.1 K/uL (0.7-4.9); Basophils % 0.8 % (0-1.3); Hematocrit 28.6 % (39.6-49.0); MPV 7.3 fL (7.6-11.3); RBC Red Blood Cell Count 3.23 M/uL (4.33-5.43)
[2020-02-07 02:25] LABS: Potassium 3.4 mmol/L (3.5-5.1)
[2020-02-07] MEDS ORDERED: NA CHLORIDE 0.9% 1,000 ML IV ONE (02:26)
[2020-02-07] MEDS ORDERED: NA CHLORIDE 0.9% 1,000 ML ONE (02:50)
[2020-02-07] MEDS ORDERED: Levofloxacin500mg IV 500 MG/100 ML BAG IV SCH (04:00)
[2020-02-07] MEDS ORDERED: NA CHLORIDE 0.9% 1,000 ML IV SCH (05:00)
[2020-02-07] MEDS: INSULIN -REGULAR HUMAN 50 UNIT/0.5 ML ML SQ SCH ×4 (07:30→20:28)
[2020-02-07] MEDS: MEDIHONEY 44 ML TOPICAL TUBE TOP SCH (08:00)
[2020-02-07] MEDS: SODIUM CHLORIDE 0.9% 10ML INJ IV SCH ×2 (08:00→19:26)
[2020-02-07] MEDS ORDERED: POTASSIUM CL SA 10 MEQ TAB PO SCH (08:00)
--- NOTE | 2020-02-07 08:28 | RAD REPORT ---
EXAM DESCRIPTION: RAD - Chest Single View - 02/07/2020 2:31 am CLINICAL HISTORY: FEVER Chest pain. COMPARISON: Chest Single View dated 01/21/2020; Chest Single View dated 01/21/2020; Chest Pa And Lat ( 2 Views) dated 08/03/2018; CHEST SINGLE VIEW dated 07/15/2015 FINDINGS: Portable technique limits examination quality. Mild interstitial pulmonary edema again noted, unchanged. The heart is mildly enlarged with changes a prior CABG. Sternotomy wires are noted.Left-sided PICC line has tip in the SVC. IMPRESSION: Mild CHF.
[2020-02-07] MEDS: CLOPIDOGREL 75 MG TABLET PO SCH (09:13)
[2020-02-07] MEDS: gemfibroziL 600 MG TAB PO SCH ×2 (09:14→19:25)
[2020-02-07] MEDS: ASPIRIN EC 81 MG TAB PO SCH (09:14)
[2020-02-07] MEDS: FUROSEMIDE 20 MG TABLET PO SCH (09:14)
[2020-02-07] MEDS: FERROUS SULFATE 325 MG TAB PO SCH (09:14)
[2020-02-07] MEDS: FINASTERIDE 5 MG TAB PO SCH (09:15)
[2020-02-07] MEDS: GLIPIZIDE S.A. 5 MG TAB PO SCH ×2 (09:15→17:00)
[2020-02-07] MEDS: carvediloL 3.125 MG TAB PO SCH ×2 (09:15→19:25)
[2020-02-07] MEDS: FE SULF/FA/VIT B COMP & C TAB PO SCH (09:16)
[2020-02-07] MEDS: PANTOPRAZOLE 40MG TABLET PO SCH (09:16)
[2020-02-07] MEDS: METFORMIN HCL 500 MG TAB PO SCH ×2 (09:16→17:00)
[2020-02-07] MEDS: TAMSULOSIN 0.4 MG SR CAP PO SCH ×2 (09:16→19:24)
[2020-02-07] MEDS: INSULIN GLARGINE 100 UNITS/ML SQ SCH ×2 (09:17→19:36)
[2020-02-07] MEDS: APIXABAN 2.5 MG TABLET PO SCH ×2 (09:23→19:24)
[2020-02-07 10:05] LABS: Urine Appearance TURBID; Urine Bilirubin NEGATIVE (NEG); Urine Blood 3+ (NEG); Urine Color YELLOW; Urine Glucose NEGATIVE (NEG); Urine Protein 2+ (NEG); Urine Specific Gravity 1.015 (1.005-1.030); Urine pH 5.5 (5.0-7.0)
--- NOTE | 2020-02-07 10:30 | P.CNS ---
Date of Consult: 02/07/20 Reason for Consult: Fever History of Present Illness: Patient is a 74-year-old male with past medical history of hypertension, diabetes and benign prostatic hyperplasia coronary artery disease with recent coronary artery bypass graft who has been at the inpatient rehab who had become hypotensive couple weeks ago had to be placed in the ICU and improved with adjustment of his blood pressure medications and his diuretics. Yesterday the patient spiked a fever of 101.2. Chest x-ray and CT of the chest showed congestive heart failure changes patient reports cough for the past couple of days. His urine sample is positive for UTI and he does have urinary retention as well as a sacral ulcer. Patient is not likely to have COVID. He does not have any respiratory symptoms source of fever is likely the UTI and the sacral ulcer. Patient's symptoms are constant moderate progressively worsening. His Lasix had been decreased due to the hypotension and it seems that he is retaining urine. Allergies Penicillins Allergy (Verified 02/07/20 07:24) unk ciprofloxacin HCl [From Cipro] Adverse Reaction (Verified 02/07/20 07:24) Nausea/Vomiting Home medications list reviewed: Yes Home Medications: Aspirin 81 mg PO DAILY 07/14/15 Finasteride [Proscar*] 5 mg PO DAILY 07/14/15 Glipizide [Glipizide Xl] 5 mg PO BIDWM 07/14/15 Insulin Glargine Human [Lantus*] 40 units SQ BID 07/14/15 Metformin HCl [Glucophage*] 500 mg PO BID 07/14/15 Omeprazole 20 mg PO DAILY 07/14/15 Tamsulosin [Flomax*] 1 cap PO BID 07/14/15 gemfibroziL [Lopid*] 600 mg PO BID 07/14/15 Acetaminophen [Tylenol*] 650 mg PO Q6HP PRN 01/20/20 Atorvastatin Calcium [Lipitor*] 20 mg PO BEDTIME 01/20/20 Clopidogrel Bisulfate [Plavix*] 75 mg PO DAILY 01/20/20 Fenofibrate [Tricor*] 145 mg PO DAILY 01/20/20 Nystatin Oint [Mycostatin 100 Mu/Gm Oint*] 1 appl TOP BID 01/20/20 carvediloL [Coreg*] 6.25 mg PO BID 01/20/20 Ferrous Sulfate [Feosol] 325 mg PO DAILY 01/21/20 Heparin [Heparin Sodium*] 5,000 unit SQ Q12H 01/21/20 Iron/FA/Vit B-Com W/C [Hemocyte Plus*] 1 tab PO DAILY 01/21/20 Furosemide [Lasix*] 20 mg PO DAILY #30 tab 01/24/20 - Past Medical/Surgical History Diabetic: Yes -: HTN -: IDDM -: BLadder CAncer -: high cholesterol -: CAD -: Bladder tumor removal -: tonsillectomy -: cyst removal X2 on back -: CABG 01/11/20 -: cholecystectomy - Family History Mother Medical History: Heart disease, Hypertension Brother Medical History: Lung disease, Diabetes Sister Medical History: Lung disease - Social History Smoking Status: Unknown if ever smoked Alcohol use: No CD- Drugs: No Caffeine use: Yes Place of Residence: Home Review of Systems 10-point ROS is otherwise unremarkable General: As per HPI Genitourinary: As per HPI Physical Examination Temp Pulse Resp BP Pulse Ox 99.3 F 108 H 20 168/58 H 90 L 02/07/20 08:00 02/07/20 09:15 02/07/20 08:00 02/07/20 09:15 02/07/20 08:00 General: Alert, In no apparent distress, Oriented x3, Obese, Other (Elderly male ) HEENT: Atraumatic, PERRLA, Mucous membr. moist/pink, EOMI Neck: Supple, JVD not distended Respiratory: Diminished (At the bases with minimal crackles) Cardiovascular: Regular rate/rhythm, Normal S1 S2, Edema Gastrointestinal: Normal bowel sounds, Soft and benign, Non-distended, No tenderness Musculoskeletal: No tenderness Integumentary: No rashes, Pressure ulcer (Left-sided sacral ulcer) Neurological: Normal gait, Normal speech, Normal tone, Normal affect, Abnormal strength Laboratory Data (last 24 hrs) 02/07/20 02:02: Sodium 139, Potassium 3.4 L, BUN 37 H, Creatinine 1.41 H, Glucose 104 02/07/20 02:02: WBC 10.4 D, Hgb 9.3 L, Hct 28.6 L, Plt Count 242 Imagings Data: EXAM DESCRIPTION: CT - Thorax Wo Con CLINICAL HISTORY: Chest pain shortness of breath. R/o pneumonia COMPARISON: Chest Single View dated 01/21/2020 FINDINGS: Advanced emphysematous changes are present throughout the lungs. 6 mm nodule is present in the right middle lobe, subpleural location (image 34/60) . Small left pleural effusion. No pneumothorax. Postsurgical changes of the mediastinum noted. No concerning bony finding. No gross upper abdominal finding. All CT scans are performed using dose optimization technique as appropriate and may include automated exposure control or mA/KV adjustment according to patient size. IMPRESSION: Prominent COPD is seen without evidence of acute infiltrate. Small left pleural effusion. Report Status: Signed EXAM DESCRIPTION: RAD - Chest Single View - 02/07/2020 2:31 am CLINICAL HISTORY: FEVER Chest pain. COMPARISON: Chest Single View dated 01/21/2020; Chest Single View dated 2019; Chest Pa And Lat (2 Views) dated 08/03/2018; CHEST SINGLE VIEW dated 2014 FINDINGS: Portable technique limits examination quality. Mild interstitial pulmonary edema again noted, unchanged. The heart is mildly enlarged with changes a prior CABG. Sternotomy wires are noted.Left-sided PICC line has tip in the SVC. IMPRESSION: Mild CHF. Conclusions/Impression: 1. Fever. Likely secondary to UTI and sacral ulcer. Will continue Levaquin. Follow up on urine cultures and wound cultures to the sacrum. Doubt COVID. Patient does not report any respiratory symptoms other than cough chest x-ray shows congestive heart failure CT scan showed COPD and no infiltrate. 2. Diastolic congestive heart failure, acute on chronic. EF 60%. Will Dc IV fluids. Chest x-ray still shows mild CHF. Patient has labile blood pressure and will hold off on changing Lasix dose at this time we will see if he improves with just discontinuation of fluids. 3. Acute urinary retention w cystitis. Place Live catheter. Continue Flomax. Continue Levaquin 4. Acute kidney injury. Monitor creatinine level. Avoid NSAIDs. Follow up on IV fluids due to CHF at this time 5. Diabetes mellitus type 2, non-insulin requiring. Continue with sliding scale insulin. 6. Anemia. H&H stable 7. Recent coronary artery bypass graft to [place] artery and [place] heart without any angina 8. Aortic valve replacement, bovine.
[2020-02-07 10:34] LABS: Urine Microscopic Reflex ORDER UMIC
[2020-02-07] MEDS ORDERED: VANCOMYCIN/NS 1 gm 1 GM/250 ML BAG IVPB SCH (11:30)
[2020-02-07 11:34] LABS: Urine Bacteria LOADED /HPF (NONE SEEN); Urine Culture Reflex Order NOT NEEDED; Urine RBC >50 /HPF (NONE SEEN)
[2020-02-07] MEDS ORDERED: CEFEPIME/SWI 2gm 2 GM/20 ML SYR IV SCH (12:00)
[2020-02-07] MEDS ORDERED: VANCOMYCIN 2 GM in NA CHLORIDE 0.9% 500 ML IVPB SCH (12:00)
--- NOTE | 2020-02-07 12:06 | RAD REPORT ---
EXAM DESCRIPTION: CT-STROKE BRAIN W/O CONTRAST ADDENDUM #1 THIS REPORT CONTAINS FINDINGS THAT MAY BE CRITICAL TO PATIENT CARE: Notification on the phone occurr ed on 02/07/2020 2:30 AM CDT. I discussed the findings with Nurse Destinee Larose who agreed to take the result on the phone on behalf of the physician, and acknowledges their critical nature. Electronically signed by: Ronen Royal 02/07/2020 2:38 AM CDT End of Addendum EXAM DESCRIPTION: CT of the head without contrast CLINICAL HISTORY: Dysphasia COMPARISON: 01/21/2020 TECHNIQUE: Axial CT of the head obtained from the skull apex to the skull base without contrast. FINDINGS: No acute intracranial hemorrhage identified. No mass, mass effect, shift of the midline, a bnormal extra-axial fluid collection or CT evidence of acute ischemic change identified. The ventricu lar system and sulcal spaces are mildly enlarged compatible with mild cerebral atrophy. Scattered a reas of hypodensity throughout the supratentorial white matter are nonspecific and may be related to chronic small vessel ischemic change. The visualized paranasal sinuses and the mastoids are clear. No skull fracture identified. Visualized orbits and globes are unremarkable. Atherosclerotic calcif ication of the intracranial internal carotid arteries. IMPRESSION: 1. No acute intracranial abnormality by CT criteria. This exam was performed according to our departmental dose-optimization program, which includes autom ated exposure control, adjustment of the mA and/or kV according to patient size and/or use of iterati ve reconstruction technique. Electronically signed by: Ronen Royal 02/07/2020 2:28 AM CDT Due to temporary technical issues with the PACS/Fluency reporting system, reports are being signed by the in house radiologist as a courtesy to ensure prompt reporting. The interpreting radiologist is f ully responsible for the content of the report.
--- NOTE | 2020-02-07 17:21 | R.PN ---
ENCOUNTER DATE AND TIME: 02/07/2020 17:15 (CDT) NAME JUAN DIEGO OLIVEIRA DATE OF : 1945 DATE OF ADMISSION: 01/24/2020 16:32 (CDT) CABGCHIEF COMPLAINT: S/P CABG for CAD SUBJECTIVE: Pt denied any depression. Pt denied any Shortness of Breath. Temp spike to 101.2, WBC 10.4 Hgb 9.3, glucose 78 to 113, prealbumin 14.6, calcium 8.8. UA 1+ esteras e bacteria < 2, procalcitonin 0.71. His UA suggested a UTI and he has a stage 2 decubital ulcer. He is now on cefepime and vancomycin. Ambulated 40', 80' and 50'. His O2 sat dropped to 80 %. Up and down 3 steps with bilateral handrails with minimum assistance using a rolling waker. Activities of daily living done with contact guard to independence. VITAL SIGNS Temperature: 97.0 F SBP/DBP: 168/58 Pulse: 96 -108 Resp: 16 MEDICATION ALLERGIES: CIPROFLOXACIN PEN (PENICILLINS) ENVIRONMENTAL ALLERGIES: - Substance Allergies None Known - Other Allergies None Known NURSING: - Shower allowing shower ACTIVITIES OOB only with supervision THERAPIES: - Dietary and Nutrition Adequate Nutrition. Nutritional Education. Nutritional Supplements. PHYSICAL EXAM - Gen Alert and awake Sitting in chair No apparent distress Oriented to: person, time, and place - Skin No skin breakdown. Normacephalic - Eyes No abnormalities - ENMT No abnormalities - Neck No abnormalities - CVS RRR - Chest Mildly decreased breath sounds bilaterally. - Resp Clear to auscultation - Abd Soft - GI Non distended Deferred - No abnormalities - Ext Mild bilateral lower extremity edema. - MSK 4+/5 weakness in both lower extremities. - Neuro No focal deficits - Psych No abnormalities ASSESSMENT: Pt. is a 74 yo Right-handed white male.On 01/21/2020 he was admitted to [facility] with diag marlena CABG.His impairment category is Cardiac 09 - Cardiac Disorders (09).Pre-morbidly, Pt. was inde pendent/mod-I in Endurance, Self-Care, Locomotion, and Transfers Control; and he had good Safety Awar eness, Balance, Communication, Endurance, Social Cognition, and Sphincter Control.Currently, he has d eficits of Endurance, Self-Care, Transfers Control, Safety Awareness, and Locomotion.Pt. is now refer red to [facility] for acute in-patient rehabilitation in order to maximize pat ient's functional independence in activities of daily living, strength, ROM, and mobility.- Rehab Goa l Patient has realistic goal of being discharged at assistance level 6-Steffany to reside at Home with Fam amrik/Relatives. MDM/PLAN: - Physical Therapy Gait dysfunction - to improve, our physical therapists will perform initial evaluation of pt's statu s upon admission and devise an individualized program for Gait Training, and Wheel Chair mobility Inability to transfer - to improve, our physical therapists will perform initial evaluation of pt's status upon admission and devise an individualized program for Bed mobility Need for home safety evaluation - to improve, our physical therapists will perform initial evaluatio n of pt's status upon admission and devise an individualized program for Home Evaluation Need in caregiver upon discharge - to improve, our physical therapists will perform initial evaluati on of pt's status upon admission and devise an individualized program for Caregiver Training Edema - to improve, our physical therapists will perform initial evaluation of pt's status upon admi ssion and devise an individualized program for Elevation Training, and Lymphedema Therapy New precaution - to improve, our physical therapists will perform initial evaluation of pt's status upon admission and devise an individualized program for Patient precaution education Poor endurance - to improve, our physical therapists will perform initial evaluation of pt's status upon admission and devise an individualized program for Endurance Training Weakness - to improve, our physical therapists will perform initial evaluation of pt's status upon a dmission and devise an individualized program for Aquatic Therapy, Neuromuscular Reeducation, and Str engthening Achieving independence - to improve, our physical therapists will perform initial evaluation of pt's status upon admission and devise an individualized program for Community Reintegration Activities - Occupational Therapy ADL deficits - to improve, our occupation therapists will perform initial evaluation of pt's status upon admission and devise an individualized program for Bathing, Bed mobility, Community Reintegratio n, Cooking, Dressing, Eating, Fine Motor Skills, Grooming, Homemaking, Kitchen Mobility, Laundry, Pat ient Education, Safety Awareness, Splinting - Positioning, Transfers(Toilet, Tub, Shower), and Wheel Chair Management Need for critical care unit manager - to improve, our occupation therapists will perform initial evaluation of pt's status upon admission and devise an individualized program for Caregiver Training Weakness - to improve, our occupation therapists will perform initial evaluation of pt's status upon admission and devise an individualized program for Aquatic Therapy, Balance, Endurance, UE ROM, and UE strengthening - Other See attached MAR (Medication Administration Record) - Diet Type Continue Regular - Diet - Liquid Texture Continue Regular - Tube Feed Continue N/A - Diet - Solid Texture Continue Regular - Shower allowing shower FUNCTIONAL STATUS: UPDATED AT WEEKLY TEAM CONFERENCE - Bladder Same accident frequency: 7-Ind - No accidents in the past 7 days - Bowel Same accident frequency: 7-Ind - No accidents in the past 7 days - Walking Same score based on distance walked: 0(N/A) - Wheelchair Same score based on distance traveled: 1(<=50ft) FUNCTIONAL STATUS: - Self-Care A. Eating Ind B. Grooming Ind C. Bathing modA D. Dressing - [place] E. Dressing - Lower modA F. Toileting [place] - Sphincter Control G. Bladder control Steffany H. Bowel control Steffany - Transfers Control I. Bed/Chair/Wheelchair modA J. Toilet modA K. Tub/Shower modA - Locomotion L. Walk/Wheelchair (B) modA M. Stairs ADNO - Communication N. Comprehension (B) Ind O. Expression (B) Ind - Social Cognition P. Social Interaction Ind Q. Problem Solving Ind R. Memory Ind - Endurance Fair - Balance Fair - Safety Awareness Good QI SCORES: - Self-Care A. Eating 06-Independent B. Oral hygiene 01-Dependent C. Toileting hygiene 02-Substantial/maximal assistance E. Shower/bathe self 02-Substantial/maximal assistance F. Upper body dressing 03-Partial/moderate assistance G. Lower body dressing 88-Not attempted due to medical condition or safety concerns H. Putting on/taking off footwear 03-Partial/moderate assistance - Mobility A. Roll left and right 04-Supervision or touching assistance B. Sit to lying 03-Partial/moderate assistance C. Lying to sitting on side of bed 03-Partial/moderate assistance D. Sit to stand 02-Substantial/maximal assistance E. Chair/[id number] transfer 02-Substantial/maximal assistance F. Toilet transfer 02-Substantial/maximal assistance G. Car transfer 88-Not attempted due to medical condition or safety concerns I. Walk 10 feet 88-Not attempted due to medical condition or safety concerns J. Walk 50 feet with two turns 88-Not attempted due to medical condition or safety concerns K. Walk 150 feet 88-Not attempted due to medical condition or safety concerns L. Walking 10 feet on uneven surfaces 88-Not attempted due to medical condition or safety concerns M. 1 step (curb) 88-Not attempted due to medical condition or safety concerns N. 4 steps 88-Not attempted due to medical condition or safety concerns O. 12 steps 88-Not attempted due to medical condition or safety concerns P. Picking up object 06-Independent R. Wheel 50 feet with two turns 88-Not attempted due to medical condition or safety concerns S. Wheel 150 feet 88-Not attempted due to medical condition or safety concerns - Bladder and Bowel Bladder continence 0-Always continent Bowel continence 0-Always continent - Endurance Fair - Balance Poor - Safety Awareness Fair CURRENT FUNC. DEFICITS: Mobility, Endurance, Balance, Safety Awareness, and Self-Care SIGNATURE PANEL: (CDT)
[2020-02-07 18:05] VITALS: O2SAT 88
[2020-02-07 19:26] VITALS: BP 115/48
[2020-02-07] MEDS ORDERED: CRANBERRY FRUIT EXTRACT 200 MG CAP PO SCH (20:00)
[2020-02-07 20:26] VITALS: TEMP 100.8
[2020-02-07] MEDS: TRAMADOL HCL 50 MG TAB PO SCH (20:28)
[2020-02-07] MEDS: ATORVASTATIN 20 MG TAB PO SCH (20:28)
[2020-02-07] MEDS: MELATONIN 3 MG TABLET PO SCH (20:28)
--- NOTE | 2020-02-10 11:15 | FAST ---
SHIFT START DATE/TIME: 02/10/2020 07:00 (CDT) SHIFT END DATE/TIME: 02/10/2020 19:00 (CDT) NAME JUAN DIEGO OLIVEIRA DATE OF : 1945 DATE OF ADMISSION: 01/24/2020 16:32 (CDT) PHONE: AGE: 74 N# [id number] GENDER: Male ENCOUNTER PHYSICIAN: Dr. Eduardo Bajwa M.D. ADMISSION DIAGNOSIS: - Cardiac 09 - Cardiac Disorders () CABG. EATING: EATING - STEP 1: Does the patient complete the activity by him/herself with no assistance (physical, verbal/nonverbal cueing, setup/clean-up)? No. EATING - STEP 2: Does the patient need only setup/clean-up assistance from one helper? No. EATING - STEP 3: Does the patient need only verbal/nonverbal cueing or touching/steadying/contact guard assistance fro m one helper? Yes. 1. [id number] ADMISSION PERFORMANCE: Supervision or touching assistance CODE: 04 ORAL HYGIENE: ORAL HYGIENE - STEP 1: Does the patient complete the activity by him/herself with no assistance (physical, verbal/nonverbal cueing, setup/clean-up)? No. ORAL HYGIENE - STEP 2: Does the patient need only setup/clean-up assistance from one helper? No. ORAL HYGIENE - STEP 3: Does the patient need only verbal/nonverbal cueing or touching/steadying/contact guard assistance fro m one helper? Yes. 1. [id number] ADMISSION PERFORMANCE: Supervision or touching assistance CODE: 04 TOILETING HYGIENE: TOILETING HYGIENE - STEP 1: Does the patient complete the activity by him/herself with no assistance (physical, verbal/nonverbal cueing, setup/clean-up)? No. TOILETING HYGIENE - STEP 2: Does the patient need only setup/clean-up assistance from one helper? No. TOILETING HYGIENE - STEP 3: Does the patient need only verbal/nonverbal cueing or touching/steadying/contact guard assistance fro m one helper? No. TOILETING HYGIENE - STEP 4: Does the patient need physical assistance - for example lifting or trunk support from one helper - wi th the helper providing less than half of the effort? Yes. 1. [id number] ADMISSION PERFORMANCE: Partial/moderate assistance CODE: 03 BATHING: Not assessed/no information CODE: - DRESSING - UPPER BODY: Not assessed/no information CODE: - DRESSING - LOWER BODY: Not assessed/no information CODE: - PUTTING ON/TAKING OFF FOOTWEAR: Not assessed/no information CODE: - ROLL LEFT AND RIGHT: ROLL LEFT AND RIGHT - STEP 1: Does the patient complete the activity by him/herself with no assistance (physical, verbal/nonverbal cueing, setup/clean-up)? No. ROLL LEFT AND RIGHT - STEP 2: Does the patient need only setup/clean-up assistance from one helper? No. ROLL LEFT AND RIGHT - STEP 3: Does the patient need only verbal/nonverbal cueing or touching/steadying/contact guard assistance fro m one helper? No. ROLL LEFT AND RIGHT - STEP 4: Does the patient need physical assistance - for example lifting or trunk support from one helper - wi th the helper providing less than half of the effort? Yes. 1. [id number] ADMISSION PERFORMANCE: Partial/moderate assistance CODE: 03 SIT TO LYING: Not assessed/no information CODE: - LYING TO SITTING: Not assessed/no information CODE: - SIT TO STAND: SIT TO STAND - STEP 1: Does the patient complete the activity by him/herself with no assistance (physical, verbal/nonverbal cueing, setup/clean-up)? No. SIT TO STAND - STEP 2: Does the patient need only setup/clean-up assistance from one helper? No. SIT TO STAND - STEP 3: Does the patient need only verbal/nonverbal cueing or touching/steadying/contact guard assistance fro m one helper? No. SIT TO STAND - STEP 4: Does the patient need physical assistance - for example lifting or trunk support from one helper - wi th the helper providing less than half of the effort? Yes. 1. [id number] ADMISSION PERFORMANCE: Partial/moderate assistance CODE: 03 TRANSFERS: BED, CHAIR: Not assessed/no information CODE: - TRANSFER TOILET: TOILET TRANSFER - STEP 1: Does the patient complete the activity by him/herself with no assistance (physical, verbal/nonverbal cueing, setup/clean-up)? No. TOILET TRANSFER - STEP 2: Does the patient need only setup/clean-up assistance from one helper? No. TOILET TRANSFER - STEP 3: Does the patient need only verbal/nonverbal cueing or touching/steadying/contact guard assistance fro m one helper? No. TOILET TRANSFER - STEP 4: Does the patient need physical assistance - for example lifting or trunk support from one helper - wi th the helper providing less than half of the effort? No. TOILET TRANSFER - STEP 5: Does the patient need physical assistance - for example lifting or trunk support from one helper - wi th the helper providing more than half of the effort? Yes. 1. [id number] ADMISSION PERFORMANCE: Substantial/maximal assistance CODE: 02 TRANSFERS: CAR: Not assessed/no information CODE: - WALK 10 FEET: Not assessed/no information CODE: - 1 STEP (CURB): Not assessed/no information CODE: - PICKING UP OBJECT: Not assessed/no information CODE: - DOES THE PATIENT USE A WHEELCHAIR/SCOOTER? CODE: EXPR WHEEL 50 FEET WITH TWO TURNS: Not assessed/no information CODE: - INDICATE THE TYPE OF WHEELCHAIR/SCOOTER USED: CODE: EXPR WHEEL 150 FEET: Not assessed/no information CODE: - INDICATE THE TYPE OF WHEELCHAIR/SCOOTER USED: CODE: EXPR BLADDER AND BOWEL: H350. BLADDER CONTINENCE (3-DAY ASSESSMENT PERIOD): Always continent (no documented incontinence) CODE: 0 H400. BOWEL CONTINENCE (3-DAY ASSESSMENT PERIOD): Always continent CODE: 0 SIGNATURE PANEL: The following modified sections: 1. [id number] Admission Performance, 1. [id number] Admission Performance, 1. [id number] Admission Performance, 1. [id number] Admission Performance, 1. [id number] Admission Performance, 1. [id number] Admission Performance, 1. [id number] Admission Performance, Code, H350. Bladder Continence ( 3-day assessment period), H400. Bowel Continence (3-day assessment period) were [electronically] sign ed by Raúl Schulz on FriFeb 10 2020 11:14:00 GMT-0500 (Central Daylight Time)
--- NOTE | 2020-02-10 16:28 | R.PN ---
ENCOUNTER DATE AND TIME: 02/10/2020 16:15 (CDT) NAME JUAN DIEGO OLIVEIRA DATE OF : 1945 DATE OF ADMISSION: 01/24/2020 16:32 (CDT) CABGCHIEF COMPLAINT: S/P CABG for CAD SUBJECTIVE: Pt denied any depression. Pt denied any Shortness of Breath. Buttocks wound cultures show MRSA. Will reconsult wound care for possible antibiotics once sensitivit ies are back. Temp is afebrile, WBC 6.8 Hgb 8.4, glucose 180 to 328, prealbumin 6.9, calcium 8.8. UA 1+ esterase bacteria < 2, procalcitonin 0.71. His UA suggested a UTI and he has a stage 2 decubital ulcer. He is was on cefepime and vancomycin. Ambulated 90' and 80' with contact guard assistance. His O2 sat dropped to 82 %. Activities of daily living done with contact guard to independence. VITAL SIGNS Temperature: 98.5 F SBP/DBP: 122/57 Pulse: 93 to 100 Resp: 18 MEDICATION ALLERGIES: CIPROFLOXACIN PEN (PENICILLINS) ENVIRONMENTAL ALLERGIES: - Substance Allergies None Known - Other Allergies None Known NURSING: - Shower allowing shower ACTIVITIES OOB only with supervision THERAPIES: - Dietary and Nutrition Adequate Nutrition. Nutritional Education. Nutritional Supplements. PHYSICAL EXAM - Gen Alert and awake Sitting in chair No apparent distress Oriented to: person, time, and place - Skin No skin breakdown. Normacephalic - Eyes No abnormalities - ENMT No abnormalities - Neck No abnormalities - CVS RRR - Chest Mildly decreased breath sounds bilaterally. - Resp Clear to auscultation - Abd Soft - GI Non distended Deferred - No abnormalities - Ext Mild bilateral lower extremity edema. - MSK 4+/5 weakness in both lower extremities. - Neuro No focal deficits - Psych No abnormalities ASSESSMENT: Pt. is a 74 yo Right-handed white male.On 01/21/2020 he was admitted to [facility] with diag nosis CABG.His impairment category is Cardiac 09 - Cardiac Disorders (09).Pre-morbidly, Pt. was inde pendent/mod-I in Endurance, Self-Care, Locomotion, and Transfers Control; and he had good Safety Awar eness, Balance, Communication, Endurance, Social Cognition, and Sphincter Control.Currently, he has d eficits of Endurance, Self-Care, Transfers Control, Safety Awareness, and Locomotion.Pt. is now refer red to [facility] for acute in-patient rehabilitation in order to maximize pat ient's functional independence in activities of daily living, strength, ROM, and mobility.- Rehab Goa l Patient has realistic goal of being discharged at assistance level 6-Steffany to reside at Home with Fam amrik/Relatives. MDM/PLAN: - Physical Therapy Gait dysfunction - to improve, our physical therapists will perform initial evaluation of pt's statu s upon admission and devise an individualized program for Gait Training, and Wheel Chair mobility Inability to transfer - to improve, our physical therapists will perform initial evaluation of pt's status upon admission and devise an individualized program for Bed mobility Need for home safety evaluation - to improve, our physical therapists will perform initial evaluatio n of pt's status upon admission and devise an individualized program for Home Evaluation Need in caregiver upon discharge - to improve, our physical therapists will perform initial evaluati on of pt's status upon admission and devise an individualized program for Caregiver Training Edema - to improve, our physical therapists will perform initial evaluation of pt's status upon admi ssion and devise an individualized program for Elevation Training, and Lymphedema Therapy New precaution - to improve, our physical therapists will perform initial evaluation of pt's status upon admission and devise an individualized program for Patient precaution education Poor endurance - to improve, our physical therapists will perform initial evaluation of pt's status upon admission and devise an individualized program for Endurance Training Weakness - to improve, our physical therapists will perform initial evaluation of pt's status upon a dmission and devise an individualized program for Aquatic Therapy, Neuromuscular Reeducation, and Str engthening Achieving independence - to improve, our physical therapists will perform initial evaluation of pt's status upon admission and devise an individualized program for Community Reintegration Activities - Occupational Therapy ADL deficits - to improve, our occupation therapists will perform initial evaluation of pt's status upon admission and devise an individualized program for Bathing, Bed mobility, Community Reintegratio n, Cooking, Dressing, Eating, Fine Motor Skills, Grooming, Homemaking, Kitchen Mobility, Laundry, Pat ient Education, Safety Awareness, Splinting - Positioning, Transfers(Toilet, Tub, Shower), and Wheel Chair Management Need for managed care manager - to improve, our occupation therapists will perform initial evaluation of pt's status upon admission and devise an individualized program for Caregiver Training Weakness - to improve, our occupation therapists will perform initial evaluation of pt's status upon admission and devise an individualized program for Aquatic Therapy, Balance, Endurance, UE ROM, and UE strengthening - Other See attached MAR (Medication Administration Record) - Diet Type Continue Regular - Diet - Liquid Texture Continue Regular - Tube Feed Continue N/A - Diet - Solid Texture Continue Regular - Shower allowing shower FUNCTIONAL STATUS: UPDATED AT WEEKLY TEAM CONFERENCE - Bladder Same accident frequency: 7-Ind - No accidents in the past 7 days - Bowel Same accident frequency: 7-Ind - No accidents in the past 7 days - Walking Same score based on distance walked: 0(N/A) - Wheelchair Same score based on distance traveled: 1(<=50ft) FUNCTIONAL STATUS: - Self-Care A. Eating Ind B. Grooming Ind C. Bathing modA D. Dressing - Upper [place] E. Dressing - Lower modA F. Toileting [place] - Sphincter Control G. Bladder control Steffany H. Bowel control Steffany - Transfers Control I. Bed/Chair/Wheelchair modA J. Toilet modA K. Tub/Shower modA - Locomotion L. Walk/Wheelchair (B) modA M. Stairs ADNO - Communication N. Comprehension (B) Ind O. Expression (B) Ind - Social Cognition P. Social Interaction Ind Q. Problem Solving Ind R. Memory Ind - Endurance Fair - Balance Fair - Safety Awareness Good QI SCORES: - Self-Care A. Eating 06-Independent B. Oral hygiene 01-Dependent C. Toileting hygiene 02-Substantial/maximal assistance E. Shower/bathe self 02-Substantial/maximal assistance F. Upper body dressing 03-Partial/moderate assistance G. Lower body dressing 88-Not attempted due to medical condition or safety concerns H. Putting on/taking off footwear 03-Partial/moderate assistance - Mobility A. Roll left and right 04-Supervision or touching assistance B. Sit to lying 03-Partial/moderate assistance C. Lying to sitting on side of bed 03-Partial/moderate assistance D. Sit to stand 02-Substantial/maximal assistance E. Chair/[id number] transfer 02-Substantial/maximal assistance F. Toilet transfer 02-Substantial/maximal assistance G. Car transfer 88-Not attempted due to medical condition or safety concerns I. Walk 10 feet 88-Not attempted due to medical condition or safety concerns J. Walk 50 feet with two turns 88-Not attempted due to medical condition or safety concerns K. Walk 150 feet 88-Not attempted due to medical condition or safety concerns L. Walking 10 feet on uneven surfaces 88-Not attempted due to medical condition or safety concerns M. 1 step (curb) 88-Not attempted due to medical condition or safety concerns N. 4 steps 88-Not attempted due to medical condition or safety concerns O. 12 steps 88-Not attempted due to medical condition or safety concerns P. Picking up object 06-Independent R. Wheel 50 feet with two turns 88-Not attempted due to medical condition or safety concerns S. Wheel 150 feet 88-Not attempted due to medical condition or safety concerns - Bladder and Bowel Bladder continence 0-Always continent Bowel continence 0-Always continent - Endurance Fair - Balance Poor - Safety Awareness Fair CURRENT FUNC. DEFICITS: Mobility, Endurance, Balance, Safety Awareness, and Self-Care SIGNATURE PANEL: (CDT)
--- NOTE | 2020-02-12 02:46 | FAST ---
SHIFT START DATE/TIME: 02/11/2020 19:00 (CDT) SHIFT END DATE/TIME: 02/12/2020 07:00 (CDT) NAME JUAN DIEGO OLIVEIRA DATE OF : 1945 DATE OF ADMISSION: 01/24/2020 16:32 (CDT) PHONE: AGE: 74 N# [id number] GENDER: Male ENCOUNTER PHYSICIAN: Dr. Eduardo Bajwa M.D. ADMISSION DIAGNOSIS: - Cardiac 09 - Cardiac Disorders () CABG. EATING: Not assessed/no information CODE: - ORAL HYGIENE: ORAL HYGIENE - STEP 1: Does the patient complete the activity by him/herself with no assistance (physical, verbal/nonverbal cueing, setup/clean-up)? No. ORAL HYGIENE - STEP 2: Does the patient need only setup/clean-up assistance from one helper? No. ORAL HYGIENE - STEP 3: Does the patient need only verbal/nonverbal cueing or touching/steadying/contact guard assistance fro m one helper? Yes. 1. [id number] ADMISSION PERFORMANCE: Supervision or touching assistance CODE: 04 TOILETING HYGIENE: TOILETING HYGIENE - STEP 1: Does the patient complete the activity by him/herself with no assistance (physical, verbal/nonverbal cueing, setup/clean-up)? No. TOILETING HYGIENE - STEP 2: Does the patient need only setup/clean-up assistance from one helper? No. TOILETING HYGIENE - STEP 3: Does the patient need only verbal/nonverbal cueing or touching/steadying/contact guard assistance fro m one helper? Yes. 1. [id number] ADMISSION PERFORMANCE: Supervision or touching assistance CODE: 04 BATHING: Not assessed/no information CODE: - DRESSING - UPPER BODY: Not assessed/no information CODE: - DRESSING - LOWER BODY: Not assessed/no information CODE: - PUTTING ON/TAKING OFF FOOTWEAR: Not assessed/no information CODE: - ROLL LEFT AND RIGHT: ROLL LEFT AND RIGHT - STEP 1: Does the patient complete the activity by him/herself with no assistance (physical, verbal/nonverbal cueing, setup/clean-up)? No. ROLL LEFT AND RIGHT - STEP 2: Does the patient need only setup/clean-up assistance from one helper? No. ROLL LEFT AND RIGHT - STEP 3: Does the patient need only verbal/nonverbal cueing or touching/steadying/contact guard assistance fro m one helper? No. ROLL LEFT AND RIGHT - STEP 4: Does the patient need physical assistance - for example lifting or trunk support from one helper - wi th the helper providing less than half of the effort? Yes. 1. [id number] ADMISSION PERFORMANCE: Partial/moderate assistance CODE: 03 SIT TO LYING: SIT TO LYING - STEP 1: Does the patient complete the activity by him/herself with no assistance (physical, verbal/nonverbal cueing, setup/clean-up)? No. SIT TO LYING - STEP 2: Does the patient need only setup/clean-up assistance from one helper? No. SIT TO LYING - STEP 3: Does the patient need only verbal/nonverbal cueing or touching/steadying/contact guard assistance fro m one helper? No. SIT TO LYING - STEP 4: Does the patient need physical assistance - for example lifting or trunk support from one helper - wi th the helper providing less than half of the effort? Yes. 1. [id number] ADMISSION PERFORMANCE: Partial/moderate assistance CODE: 03 LYING TO SITTING: LYING TO SITTING ON SIDE OF BED - STEP 1: Does the patient complete the activity by him/herself with no assistance (physical, verbal/nonverbal cueing, setup/clean-up)? No. LYING TO SITTING ON SIDE OF BED - STEP 2: Does the patient need only setup/clean-up assistance from one helper? No. LYING TO SITTING ON SIDE OF BED - STEP 3: Does the patient need only verbal/nonverbal cueing or touching/steadying/contact guard assistance fro m one helper? No. LYING TO SITTING ON SIDE OF BED - STEP 4: Does the patient need physical assistance - for example lifting or trunk support from one helper - wi th the helper providing less than half of the effort? Yes. 1. [id number] ADMISSION PERFORMANCE: Partial/moderate assistance CODE: 03 SIT TO STAND: SIT TO STAND - STEP 1: Does the patient complete the activity by him/herself with no assistance (physical, verbal/nonverbal cueing, setup/clean-up)? No. SIT TO STAND - STEP 2: Does the patient need only setup/clean-up assistance from one helper? No. SIT TO STAND - STEP 3: Does the patient need only verbal/nonverbal cueing or touching/steadying/contact guard assistance fro m one helper? No. SIT TO STAND - STEP 4: Does the patient need physical assistance - for example lifting or trunk support from one helper - wi th the helper providing less than half of the effort? Yes. 1. [id number] ADMISSION PERFORMANCE: Partial/moderate assistance CODE: 03 TRANSFERS: BED, CHAIR: CHAIR/[id number] TRANSFER - STEP 1: Does the patient complete the activity by him/herself with no assistance (physical, verbal/nonverbal cueing, setup/clean-up)? No. CHAIR/[id number] TRANSFER - STEP 2: Does the patient need only setup/clean-up assistance from one helper? No. CHAIR/[id number] TRANSFER - STEP 3: Does the patient need only verbal/nonverbal cueing or touching/steadying/contact guard assistance fro m one helper? No. CHAIR/[id number] TRANSFER - STEP 4: Does the patient need physical assistance - for example lifting or trunk support from one helper - wi th the helper providing less than half of the effort? Yes. 1. [id number] ADMISSION PERFORMANCE: Partial/moderate assistance CODE: 03 TRANSFER TOILET: TOILET TRANSFER - STEP 1: Does the patient complete the activity by him/herself with no assistance (physical, verbal/nonverbal cueing, setup/clean-up)? No. TOILET TRANSFER - STEP 2: Does the patient need only setup/clean-up assistance from one helper? No. TOILET TRANSFER - STEP 3: Does the patient need only verbal/nonverbal cueing or touching/steadying/contact guard assistance fro m one helper? No. TOILET TRANSFER - STEP 4: Does the patient need physical assistance - for example lifting or trunk support from one helper - wi th the helper providing less than half of the effort? Yes. 1. [id number] ADMISSION PERFORMANCE: Partial/moderate assistance CODE: 03 TRANSFERS: CAR: Not assessed/no information CODE: - WALK 10 FEET: Not assessed/no information CODE: - 1 STEP (CURB): Not assessed/no information CODE: - PICKING UP OBJECT: Not assessed/no information CODE: - DOES THE PATIENT USE A WHEELCHAIR/SCOOTER? CODE: EXPR WHEEL 50 FEET WITH TWO TURNS: Not assessed/no information CODE: - INDICATE THE TYPE OF WHEELCHAIR/SCOOTER USED: CODE: EXPR WHEEL 150 FEET: Not assessed/no information CODE: - INDICATE THE TYPE OF WHEELCHAIR/SCOOTER USED: CODE: EXPR BLADDER AND BOWEL: H350. BLADDER CONTINENCE (3-DAY ASSESSMENT PERIOD): Always continent (no documented incontinence) CODE: 0 H400. BOWEL CONTINENCE (3-DAY ASSESSMENT PERIOD): Always continent CODE: 0
--- NOTE | 2020-02-13 12:55 | FAST ---
SHIFT START DATE/TIME: 02/13/2020 07:00 (CDT) SHIFT END DATE/TIME: 02/13/2020 19:00 (CDT) NAME JUAN DIEGO OLIVEIRA DATE OF : 1945 DATE OF ADMISSION: 01/24/2020 16:32 (CDT) PHONE: AGE: 74 N# [id number] GENDER: Male ENCOUNTER PHYSICIAN: Dr. Eduardo Bajwa M.D. ADMISSION DIAGNOSIS: - Cardiac 09 - Cardiac Disorders () CABG. EATING: EATING - STEP 1: Does the patient complete the activity by him/herself with no assistance (physical, verbal/nonverbal cueing, setup/clean-up)? No. EATING - STEP 2: Does the patient need only setup/clean-up assistance from one helper? Yes. 1. [id number] ADMISSION PERFORMANCE: Setup or clean-up assistance CODE: 05 ORAL HYGIENE: ORAL HYGIENE - STEP 1: Does the patient complete the activity by him/herself with no assistance (physical, verbal/nonverbal cueing, setup/clean-up)? No. ORAL HYGIENE - STEP 2: Does the patient need only setup/clean-up assistance from one helper? Yes. 1. [id number] ADMISSION PERFORMANCE: Setup or clean-up assistance CODE: 05 TOILETING HYGIENE: TOILETING HYGIENE - STEP 1: Does the patient complete the activity by him/herself with no assistance (physical, verbal/nonverbal cueing, setup/clean-up)? No. TOILETING HYGIENE - STEP 2: Does the patient need only setup/clean-up assistance from one helper? No. TOILETING HYGIENE - STEP 3: Does the patient need only verbal/nonverbal cueing or touching/steadying/contact guard assistance fro m one helper? Yes. 1. [id number] ADMISSION PERFORMANCE: Supervision or touching assistance CODE: 04 BATHING: Not assessed/no information CODE: - DRESSING - UPPER BODY: DRESSING - UPPER BODY - STEP 1: Does the patient complete the activity by him/herself with no assistance (physical, verbal/nonverbal cueing, setup/clean-up)? No. DRESSING - UPPER BODY - STEP 2: Does the patient need only setup/clean-up assistance from one helper? No. DRESSING - UPPER BODY - STEP 3: Does the patient need only verbal/nonverbal cueing or touching/steadying/contact guard assistance fro m one helper? Yes. 1. ADMISSION PERFORMANCE: Supervision or touching assistance CODE: 04 DRESSING - LOWER BODY: DRESSING - LOWER BODY - STEP 1: Does the patient complete the activity by him/herself with no assistance (physical, verbal/nonverbal cueing, setup/clean-up)? No. DRESSING - LOWER BODY - STEP 2: Does the patient need only setup/clean-up assistance from one helper? No. DRESSING - LOWER BODY - STEP 3: Does the patient need only verbal/nonverbal cueing or touching/steadying/contact guard assistance fro m one helper? Yes. 1. ADMISSION PERFORMANCE: Supervision or touching assistance CODE: 04 PUTTING ON/TAKING OFF FOOTWEAR: FOOTWEAR - STEP 1: Does the patient complete the activity by him/herself with no assistance (physical, verbal/nonverbal cueing, setup/clean-up)? No. FOOTWEAR - STEP 2: Does the patient need only setup/clean-up assistance from one helper? Yes. 1. ADMISSION PERFORMANCE: Setup or clean-up assistance CODE: 05 DOES THE PATIENT USE A WHEELCHAIR/SCOOTER? CODE: EXPR INDICATE THE TYPE OF WHEELCHAIR/SCOOTER USED: CODE: EXPR INDICATE THE TYPE OF WHEELCHAIR/SCOOTER USED: CODE: EXPR BLADDER AND BOWEL: H350. BLADDER CONTINENCE (3-DAY ASSESSMENT PERIOD): Always continent (no documented incontinence) CODE: 0 H400. BOWEL CONTINENCE (3-DAY ASSESSMENT PERIOD): Always continent CODE: 0 SIGNATURE PANEL: The following modified sections: 1. [id number] Admission Performance, 1. [id number] Admission Performance, 1. [id number] Admission Performance, 1. [id number] Admission Performance, 1. [id number] Admission Performance, 1. [id number] Admission Performance, H350. Bladder Continence (3-day assessment period), H400. Bowel Co ntinence (3-day assessment period) were [electronically] signed by Shun NeriNMalissa on FriFeb 13 2020 12:54:05 GMT-0500 (Central Daylight Time)
--- NOTE | 2020-02-14 15:18 | R.PN ---
ENCOUNTER DATE AND TIME: 02/14/2020 15:12 (CDT) NAME JUAN DIEGO OLIVEIRA DATE OF : 1945 DATE OF ADMISSION: 01/24/2020 16:32 (CDT) CABGCHIEF COMPLAINT: S/P CABG for CAD SUBJECTIVE: Pt denied any depression. Pt denied any Shortness of Breath. Buttocks wound cultures show MRSA. Will reconsult wound care for possible antibiotics once sensitivit ies are back. Temp is afebrile, WBC 6.8 Hgb 8.4, glucose 73 to 164, prealbumin 6.9, calcium 8.8. UA 1 + esterase bacteria < 2, procalcitonin 0.71. His UA suggested a UTI and he has a stage 2 decubital u lcer. He is was on cefepime and vancomycin. Ambulated 90' and 80' with contact guard assistance. His O2 sat dropped to 82 %. Patient states that pain is under control. Therapeutic exercises done with 5lb t-bar, 3 sets of 15 with observation. VITAL SIGNS Temperature: 97.1 F SBP/DBP: 110/59 Pulse: 86 Resp: 16 MEDICATION ALLERGIES: CIPROFLOXACIN PEN (PENICILLINS) ENVIRONMENTAL ALLERGIES: - Substance Allergies None Known - Other Allergies None Known NURSING: - Shower allowing shower ACTIVITIES OOB only with supervision THERAPIES: - Dietary and Nutrition Adequate Nutrition. Nutritional Education. Nutritional Supplements. PHYSICAL EXAM - Gen Alert and awake Sitting in chair No apparent distress Oriented to: person, time, and place - Skin No skin breakdown. Normacephalic - Eyes No abnormalities - ENMT No abnormalities - Neck No abnormalities - CVS RRR - Chest Mildly decreased breath sounds bilaterally. - Resp Clear to auscultation - Abd Soft - GI Non distended Deferred - No abnormalities - Ext Mild bilateral lower extremity edema. - MSK 4+/5 weakness in both lower extremities. - Neuro No focal deficits - Psych No abnormalities ASSESSMENT: Pt. is a 74 yo Right-handed white male.On 01/21/2020 he was admitted to [facility] with diag nosis CABG.His impairment category is Cardiac 09 - Cardiac Disorders (09).Pre-morbidly, Pt. was inde pendent/mod-I in Endurance, Self-Care, Locomotion, and Transfers Control; and he had good Safety Awar eness, Balance, Communication, Endurance, Social Cognition, and Sphincter Control.Currently, he has d eficits of Endurance, Self-Care, Transfers Control, Safety Awareness, and Locomotion.Pt. is now refer red to [facility] for acute in-patient rehabilitation in order to maximize pat ient's functional independence in activities of daily living, strength, ROM, and mobility.- Rehab Goa l Patient has realistic goal of being discharged at assistance level 6-Steffany to reside at Home with Fam amrik/Relatives. MDM/PLAN: - Physical Therapy Gait dysfunction - to improve, our physical therapists will perform initial evaluation of pt's statu s upon admission and devise an individualized program for Gait Training, and Wheel Chair mobility Inability to transfer - to improve, our physical therapists will perform initial evaluation of pt's status upon admission and devise an individualized program for Bed mobility Need for home safety evaluation - to improve, our physical therapists will perform initial evaluatio n of pt's status upon admission and devise an individualized program for Home Evaluation Need in caregiver upon discharge - to improve, our physical therapists will perform initial evaluati on of pt's status upon admission and devise an individualized program for Caregiver Training Edema - to improve, our physical therapists will perform initial evaluation of pt's status upon admi ssion and devise an individualized program for Elevation Training, and Lymphedema Therapy New precaution - to improve, our physical therapists will perform initial evaluation of pt's status upon admission and devise an individualized program for Patient precaution education Poor endurance - to improve, our physical therapists will perform initial evaluation of pt's status upon admission and devise an individualized program for Endurance Training Weakness - to improve, our physical therapists will perform initial evaluation of pt's status upon a dmission and devise an individualized program for Aquatic Therapy, Neuromuscular Reeducation, and Str engthening Achieving independence - to improve, our physical therapists will perform initial evaluation of pt's status upon admission and devise an individualized program for Community Reintegration Activities - Occupational Therapy ADL deficits - to improve, our occupation therapists will perform initial evaluation of pt's status upon admission and devise an individualized program for Bathing, Bed mobility, Community Reintegratio n, Cooking, Dressing, Eating, Fine Motor Skills, Grooming, Homemaking, Kitchen Mobility, Laundry, Pat ient Education, Safety Awareness, Splinting - Positioning, Transfers(Toilet, Tub, Shower), and Wheel Chair Management Need for care specialist - to improve, our occupation therapists will perform initial evaluation of pt's status upon admission and devise an individualized program for Caregiver Training Weakness - to improve, our occupation therapists will perform initial evaluation of pt's status upon admission and devise an individualized program for Aquatic Therapy, Balance, Endurance, UE ROM, and UE strengthening - Other See attached MAR (Medication Administration Record) - Diet Type Continue Regular - Diet - Liquid Texture Continue Regular - Tube Feed Continue N/A - Diet - Solid Texture Continue Regular - Shower allowing shower FUNCTIONAL STATUS: UPDATED AT WEEKLY TEAM CONFERENCE - Bladder Same accident frequency: 7-Ind - No accidents in the past 7 days - Bowel Same accident frequency: 7-Ind - No accidents in the past 7 days - Walking Same score based on distance walked: 0(N/A) - Wheelchair Same score based on distance traveled: 1(<=50ft) FUNCTIONAL STATUS: - Self-Care A. Eating Ind B. Grooming Ind C. Bathing modA D. Dressing - Upper [place] E. Dressing - Lower modA F. Toileting Arina - Sphincter Control G. Bladder control Steffany H. Bowel control Steffany - Transfers Control I. Bed/Chair/Wheelchair modA J. Toilet modA K. Tub/Shower modA - Locomotion L. Walk/Wheelchair (B) modA M. Stairs ADNO - Communication N. Comprehension (B) Ind O. Expression (B) Ind - Social Cognition P. Social Interaction Ind Q. Problem Solving Ind R. Memory Ind - Endurance Fair - Balance Fair - Safety Awareness Good QI SCORES: - Self-Care A. Eating 06-Independent B. Oral hygiene 01-Dependent C. Toileting hygiene 02-Substantial/maximal assistance E. Shower/bathe self 02-Substantial/maximal assistance F. Upper body dressing 03-Partial/moderate assistance G. Lower body dressing 88-Not attempted due to medical condition or safety concerns H. Putting on/taking off footwear 03-Partial/moderate assistance - Mobility A. Roll left and right 04-Supervision or touching assistance B. Sit to lying 03-Partial/moderate assistance C. Lying to sitting on side of bed 03-Partial/moderate assistance D. Sit to stand 02-Substantial/maximal assistance E. Chair/[id number] transfer 02-Substantial/maximal assistance F. Toilet transfer 02-Substantial/maximal assistance G. Car transfer 88-Not attempted due to medical condition or safety concerns I. Walk 10 feet 88-Not attempted due to medical condition or safety concerns J. Walk 50 feet with two turns 88-Not attempted due to medical condition or safety concerns K. Walk 150 feet 88-Not attempted due to medical condition or safety concerns L. Walking 10 feet on uneven surfaces 88-Not attempted due to medical condition or safety concerns M. 1 step (curb) 88-Not attempted due to medical condition or safety concerns N. 4 steps 88-Not attempted due to medical condition or safety concerns O. 12 steps 88-Not attempted due to medical condition or safety concerns P. Picking up object 06-Independent R. Wheel 50 feet with two turns 88-Not attempted due to medical condition or safety concerns S. Wheel 150 feet 88-Not attempted due to medical condition or safety concerns - Bladder and Bowel Bladder continence 0-Always continent Bowel continence 0-Always continent - Endurance Fair - Balance Poor - Safety Awareness [facility]IC[facility]: Mobility, Endurance, Balance, Safety Awareness, and Self-Care SIGNATURE PANEL: (CDT)
--- NOTE | 2020-02-15 18:29 | R.PN ---
ENCOUNTER DATE AND TIME: 02/15/2020 18:17 (CDT) NAME JUAN DIEGO OLIVEIRA DATE OF : 1945 DATE OF ADMISSION: 01/24/2020 16:32 (CDT) CABGCHIEF COMPLAINT: S/P CABG for CAD SUBJECTIVE: Pt denied any depression. Pt denied any Shortness of Breath. Ambulated 450' with contact guard assistance. His O2 sat dropped to 81 %. He will likely need home O2 and a wheelchair at home. Patient states that pain is under control. Therapeutic exercises done with 5lb t-bar, 3 sets of 15 with observation. He is on Bactrim Ds bid from 02-10-20 to 02-17-20. VITAL SIGNS Temperature: 97.1 F SBP/DBP: 115/66 Pulse: 87 Resp: 18 MEDICATION ALLERGIES: CIPROFLOXACIN PEN (PENICILLINS) ENVIRONMENTAL ALLERGIES: - Substance Allergies None Known - Other Allergies None Known NURSING: - Shower allowing shower ACTIVITIES OOB only with supervision THERAPIES: - Dietary and Nutrition Adequate Nutrition. Nutritional Education. Nutritional Supplements. PHYSICAL EXAM - Gen Alert and awake Sitting in chair No apparent distress Oriented to: person, time, and place - Skin No skin breakdown. Normacephalic - Eyes No abnormalities - ENMT No abnormalities - Neck No abnormalities - CVS RRR - Chest Mildly decreased breath sounds bilaterally. - Resp Clear to auscultation - Abd Soft - GI Non distended Deferred - No abnormalities - Ext Mild bilateral lower extremity edema. - MSK 4+/5 weakness in both lower extremities. - Neuro No focal deficits - Psych No abnormalities ASSESSMENT: Pt. is a 74 yo Right-handed white male.On 01/21/2020 he was admitted to [facility] with diag nosis CABG.His impairment category is Cardiac 09 - Cardiac Disorders (09).Pre-morbidly, Pt. was inde pendent/mod-I in Endurance, Self-Care, Locomotion, and Transfers Control; and he had good Safety Awar eness, Balance, Communication, Endurance, Social Cognition, and Sphincter Control.Currently, he has d eficits of Endurance, Self-Care, Transfers Control, Safety Awareness, and Locomotion.Pt. is now refer red to [facility] for acute in-patient rehabilitation in order to maximize pat ient's functional independence in activities of daily living, strength, ROM, and mobility.- Rehab Goa l Patient has realistic goal of being discharged at assistance level 6-Steffany to reside at Home with Fam amrik/Relatives. MDM/PLAN: - Physical Therapy Gait dysfunction - to improve, our physical therapists will perform initial evaluation of pt's statu s upon admission and devise an individualized program for Gait Training, and Wheel Chair mobility Inability to transfer - to improve, our physical therapists will perform initial evaluation of pt's status upon admission and devise an individualized program for Bed mobility Need for home safety evaluation - to improve, our physical therapists will perform initial evaluatio n of pt's status upon admission and devise an individualized program for Home Evaluation Need in caregiver upon discharge - to improve, our physical therapists will perform initial evaluati on of pt's status upon admission and devise an individualized program for Caregiver Training Edema - to improve, our physical therapists will perform initial evaluation of pt's status upon admi ssion and devise an individualized program for Elevation Training, and Lymphedema Therapy New precaution - to improve, our physical therapists will perform initial evaluation of pt's status upon admission and devise an individualized program for Patient precaution education Poor endurance - to improve, our physical therapists will perform initial evaluation of pt's status upon admission and devise an individualized program for Endurance Training Weakness - to improve, our physical therapists will perform initial evaluation of pt's status upon a dmission and devise an individualized program for Aquatic Therapy, Neuromuscular Reeducation, and Str engthening Achieving independence - to improve, our physical therapists will perform initial evaluation of pt's status upon admission and devise an individualized program for Community Reintegration Activities - Occupational Therapy ADL deficits - to improve, our occupation therapists will perform initial evaluation of pt's status upon admission and devise an individualized program for Bathing, Bed mobility, Community Reintegratio n, Cooking, Dressing, Eating, Fine Motor Skills, Grooming, Homemaking, Kitchen Mobility, Laundry, Pat ient Education, Safety Awareness, Splinting - Positioning, Transfers(Toilet, Tub, Shower), and Wheel Chair Management Need for geriatric care manager - to improve, our occupation therapists will perform initial evaluation of pt's status upon admission and devise an individualized program for Caregiver Training Weakness - to improve, our occupation therapists will perform initial evaluation of pt's status upon admission and devise an individualized program for Aquatic Therapy, Balance, Endurance, UE ROM, and UE strengthening - Other See attached MAR (Medication Administration Record) - Diet Type Continue Regular - Diet - Liquid Texture Continue Regular - Tube Feed Continue N/A - Diet - Solid Texture Continue Regular - Shower allowing shower FUNCTIONAL STATUS: UPDATED AT WEEKLY TEAM CONFERENCE - Bladder Same accident frequency: 7-Ind - No accidents in the past 7 days - Bowel Same accident frequency: 7-Ind - No accidents in the past 7 days - Walking Same score based on distance walked: 0(N/A) - Wheelchair Same score based on distance traveled: 1(<=50ft) FUNCTIONAL STATUS: - Self-Care A. Eating Ind B. Grooming Ind C. Bathing modA D. Dressing - Upper Arina E. Dressing - Lower modA F. Toileting Arina - Sphincter Control G. Bladder control Steffany H. Bowel control Steffany - Transfers Control I. Bed/Chair/Wheelchair modA J. Toilet modA K. Tub/Shower modA - Locomotion L. Walk/Wheelchair (B) modA M. Stairs ADNO - Communication N. Comprehension (B) Ind O. Expression (B) Ind - Social Cognition P. Social Interaction Ind Q. Problem Solving Ind R. Memory Ind - Endurance Fair - Balance Fair - Safety Awareness Good QI SCORES: - Self-Care A. Eating 06-Independent B. Oral hygiene 01-Dependent C. Toileting hygiene 02-Substantial/maximal assistance E. Shower/bathe self 02-Substantial/maximal assistance F. Upper body dressing 03-Partial/moderate assistance G. Lower body dressing 88-Not attempted due to medical condition or safety concerns H. Putting on/taking off footwear 03-Partial/moderate assistance - Mobility A. Roll left and right 04-Supervision or touching assistance B. Sit to lying 03-Partial/moderate assistance C. Lying to sitting on side of bed 03-Partial/moderate assistance D. Sit to stand 02-Substantial/maximal assistance E. Chair/itv-km-pbovz transfer 02-Substantial/maximal assistance F. Toilet transfer 02-Substantial/maximal assistance G. Car transfer 88-Not attempted due to medical condition or safety concerns I. Walk 10 feet 88-Not attempted due to medical condition or safety concerns J. Walk 50 feet with two turns 88-Not attempted due to medical condition or safety concerns K. Walk 150 feet 88-Not attempted due to medical condition or safety concerns L. Walking 10 feet on uneven surfaces 88-Not attempted due to medical condition or safety concerns M. 1 step (curb) 88-Not attempted due to medical condition or safety concerns N. 4 steps 88-Not attempted due to medical condition or safety concerns O. 12 steps 88-Not attempted due to medical condition or safety concerns P. Picking up object 06-Independent R. Wheel 50 feet with two turns 88-Not attempted due to medical condition or safety concerns S. Wheel 150 feet 88-Not attempted due to medical condition or safety concerns - Bladder and Bowel Bladder continence 0-Always continent Bowel continence 0-Always continent - Endurance Fair - Balance Poor - Safety Awareness Fair [facility] DEFICITS: Mobility, Endurance, Balance, Safety Awareness, and Self-Care SIGNATURE PANEL: (CDT)
--- NOTE | 2020-02-16 14:04 | R.PN ---
ENCOUNTER DATE AND TIME: 02/16/2020 13:57 (CDT) NAME JUAN DIEGO OLIVEIRA DATE OF : 1945 DATE OF ADMISSION: 01/24/2020 16:32 (CDT) CABGCHIEF COMPLAINT: S/P CABG for CAD SUBJECTIVE: Pt denied any depression. Pt denied any Shortness of Breath. Ambulated 450' with contact guard assistance. His O2 sat dropped to 81 %. He will likely need home O2 and a wheelchair at home. Patient states that pain is under control. Therapeutic exercises done with 5lb t-bar, 3 sets of 15 with observation. He is on Bactrim Ds bid from 02-10-20 to 02-17-20. WBC 6.8, Hgb 9.5, glucose 73 to 170. VITAL SIGNS Temperature: 97.5 F SBP/DBP: 109/53 Pulse: 86 Resp: 16 MEDICATION ALLERGIES: CIPROFLOXACIN PEN (PENICILLINS) ENVIRONMENTAL ALLERGIES: - Substance Allergies None Known - Other Allergies None Known NURSING: - Shower allowing shower ACTIVITIES OOB only with supervision THERAPIES: - Dietary and Nutrition Adequate Nutrition. Nutritional Education. Nutritional Supplements. PHYSICAL EXAM - Gen Alert and awake Sitting in chair No apparent distress Oriented to: person, time, and place - Skin No skin breakdown. Normacephalic - Eyes No abnormalities - ENMT No abnormalities - Neck No abnormalities - CVS RRR - Chest Mildly decreased breath sounds bilaterally. - Resp Clear to auscultation - Abd Soft - GI Non distended Deferred - No abnormalities - Ext Mild bilateral lower extremity edema. - MSK 4+/5 weakness in both lower extremities. - Neuro No focal deficits - Psych No abnormalities ASSESSMENT: Pt. is a 74 yo Right-handed white male.On 01/21/2020 he was admitted to [facility] with diag nosis CABG.His impairment category is Cardiac 09 - Cardiac Disorders (09).Pre-morbidly, Pt. was inde pendent/mod-I in Endurance, Self-Care, Locomotion, and Transfers Control; and he had good Safety Awar eness, Balance, Communication, Endurance, Social Cognition, and Sphincter Control.Currently, he has d eficits of Endurance, Self-Care, Transfers Control, Safety Awareness, and Locomotion.Pt. is now refer red to [facility] for acute in-patient rehabilitation in order to maximize pat ient's functional independence in activities of daily living, strength, ROM, and mobility.- Rehab Goa l Patient has realistic goal of being discharged at assistance level 6-Steffany to reside at Home with Fam amrik/Relatives. MDM/PLAN: - Physical Therapy Gait dysfunction - to improve, our physical therapists will perform initial evaluation of pt's statu s upon admission and devise an individualized program for Gait Training, and Wheel Chair mobility Inability to transfer - to improve, our physical therapists will perform initial evaluation of pt's status upon admission and devise an individualized program for Bed mobility Need for home safety evaluation - to improve, our physical therapists will perform initial evaluatio n of pt's status upon admission and devise an individualized program for Home Evaluation Need in caregiver upon discharge - to improve, our physical therapists will perform initial evaluati on of pt's status upon admission and devise an individualized program for Caregiver Training Edema - to improve, our physical therapists will perform initial evaluation of pt's status upon admi ssion and devise an individualized program for Elevation Training, and Lymphedema Therapy New precaution - to improve, our physical therapists will perform initial evaluation of pt's status upon admission and devise an individualized program for Patient precaution education Poor endurance - to improve, our physical therapists will perform initial evaluation of pt's status upon admission and devise an individualized program for Endurance Training Weakness - to improve, our physical therapists will perform initial evaluation of pt's status upon a dmission and devise an individualized program for Aquatic Therapy, Neuromuscular Reeducation, and Str engthening Achieving independence - to improve, our physical therapists will perform initial evaluation of pt's status upon admission and devise an individualized program for Community Reintegration Activities - Occupational Therapy ADL deficits - to improve, our occupation therapists will perform initial evaluation of pt's status upon admission and devise an individualized program for Bathing, Bed mobility, Community Reintegratio n, Cooking, Dressing, Eating, Fine Motor Skills, Grooming, Homemaking, Kitchen Mobility, Laundry, Pat ient Education, Safety Awareness, Splinting - Positioning, Transfers(Toilet, Tub, Shower), and Wheel Chair Management Need for school childcare attendant - to improve, our occupation therapists will perform initial evaluation of pt's status upon admission and devise an individualized program for Caregiver Training Weakness - to improve, our occupation therapists will perform initial evaluation of pt's status upon admission and devise an individualized program for Aquatic Therapy, Balance, Endurance, UE ROM, and UE strengthening - Other See attached MAR (Medication Administration Record) - Diet Type Continue Regular - Diet - Liquid Texture Continue Regular - Tube Feed Continue N/A - Diet - Solid Texture Continue Regular - Shower allowing shower FUNCTIONAL STATUS: UPDATED AT WEEKLY TEAM CONFERENCE - Bladder Same accident frequency: 7-Ind - No accidents in the past 7 days - Bowel Same accident frequency: 7-Ind - No accidents in the past 7 days - Walking Same score based on distance walked: 0(N/A) - Wheelchair Same score based on distance traveled: 1(<=50ft) FUNCTIONAL STATUS: - Self-Care A. Eating Ind B. Grooming Ind C. Bathing modA D. Dressing - Upper Arina E. Dressing - Lower modA F. Toileting Arina - Sphincter Control G. Bladder control Steffany H. Bowel control Steffany - Transfers Control I. Bed/Chair/Wheelchair modA J. Toilet modA K. Tub/Shower modA - Locomotion L. Walk/Wheelchair (B) modA M. Stairs ADNO - Communication N. Comprehension (B) Ind O. Expression (B) Ind - Social Cognition P. Social Interaction Ind Q. Problem Solving Ind R. Memory Ind - Endurance Fair - Balance Fair - Safety Awareness Good QI SCORES: - Self-Care A. Eating 06-Independent B. Oral hygiene 01-Dependent C. Toileting hygiene 02-Substantial/maximal assistance E. Shower/bathe self 02-Substantial/maximal assistance F. Upper body dressing 03-Partial/moderate assistance G. Lower body dressing 88-Not attempted due to medical condition or safety concerns H. Putting on/taking off footwear 03-Partial/moderate assistance - Mobility A. Roll left and right 04-Supervision or touching assistance B. Sit to lying 03-Partial/moderate assistance C. Lying to sitting on side of bed 03-Partial/moderate assistance D. Sit to stand 02-Substantial/maximal assistance E. Chair/bss-fm-aevum transfer 02-Substantial/maximal assistance F. Toilet transfer 02-Substantial/maximal assistance G. Car transfer 88-Not attempted due to medical condition or safety concerns I. Walk 10 feet 88-Not attempted due to medical condition or safety concerns J. Walk 50 feet with two turns 88-Not attempted due to medical condition or safety concerns K. Walk 150 feet 88-Not attempted due to medical condition or safety concerns L. Walking 10 feet on uneven surfaces 88-Not attempted due to medical condition or safety concerns M. 1 step (curb) 88-Not attempted due to medical condition or safety concerns N. 4 steps 88-Not attempted due to medical condition or safety concerns O. 12 steps 88-Not attempted due to medical condition or safety concerns P. Picking up object 06-Independent R. Wheel 50 feet with two turns 88-Not attempted due to medical condition or safety concerns S. Wheel 150 feet 88-Not attempted due to medical condition or safety concerns - Bladder and Bowel Bladder continence 0-Always continent Bowel continence 0-Always continent - Endurance Fair - Balance Poor - Safety Awareness Fair CURRENT [facility]. DEFICITS: Mobility, Endurance, Balance, Safety Awareness, and Self-Care SIGNATURE PANEL: (CDT)
--- NOTE | 2020-02-17 11:24 | FAST ---
SHIFT START DATE/TIME: 02/17/2020 07:00 (CDT) SHIFT END DATE/TIME: 02/17/2020 19:00 (CDT) NAME JUAN DIEGO OLIVEIRA DATE OF : 1945 DATE OF ADMISSION: 01/24/2020 16:32 (CDT) PHONE: AGE: 74 N# [id number] GENDER: Male ENCOUNTER PHYSICIAN: Dr. Eduardo Bajwa M.D. ADMISSION DIAGNOSIS: - Cardiac 09 - Cardiac Disorders () CABG. EATING: EATING - STEP 1: Does the patient complete the activity by him/herself with no assistance (physical, verbal/nonverbal cueing, setup/clean-up)? No. EATING - STEP 2: Does the patient need only setup/clean-up assistance from one helper? No. EATING - STEP 3: Does the patient need only verbal/nonverbal cueing or touching/steadying/contact guard assistance fro m one helper? Yes. 1. [id number] ADMISSION PERFORMANCE: Supervision or touching assistance CODE: 04 ORAL HYGIENE: ORAL HYGIENE - STEP 1: Does the patient complete the activity by him/herself with no assistance (physical, verbal/nonverbal cueing, setup/clean-up)? No. ORAL HYGIENE - STEP 2: Does the patient need only setup/clean-up assistance from one helper? No. ORAL HYGIENE - STEP 3: Does the patient need only verbal/nonverbal cueing or touching/steadying/contact guard assistance fro m one helper? Yes. 1. [id number] ADMISSION PERFORMANCE: Supervision or touching assistance CODE: 04 TOILETING HYGIENE: TOILETING HYGIENE - STEP 1: Does the patient complete the activity by him/herself with no assistance (physical, verbal/nonverbal cueing, setup/clean-up)? No. TOILETING HYGIENE - STEP 2: Does the patient need only setup/clean-up assistance from one helper? No. TOILETING HYGIENE - STEP 3: Does the patient need only verbal/nonverbal cueing or touching/steadying/contact guard assistance fro m one helper? Yes. 1. [id number] ADMISSION PERFORMANCE: Supervision or touching assistance CODE: 04 BATHING: Not assessed/no information CODE: - DRESSING - UPPER BODY: Not assessed/no information CODE: - DRESSING - LOWER BODY: Not assessed/no information CODE: - PUTTING ON/TAKING OFF FOOTWEAR: Not assessed/no information CODE: - ROLL LEFT AND RIGHT: Not assessed/no information CODE: - SIT TO LYING: Not assessed/no information CODE: - LYING TO SITTING: Not assessed/no information CODE: - SIT TO STAND: Not assessed/no information CODE: - TRANSFERS: BED, CHAIR: [id number] TRANSFER - STEP 1: Does the patient complete the activity by him/herself with no assistance (physical, verbal/nonverbal cueing, setup/clean-up)? No. CHAIR/[id number] TRANSFER - STEP 2: Does the patient need only setup/clean-up assistance from one helper? No. CHAIR/[id number] TRANSFER - STEP 3: Does the patient need only verbal/nonverbal cueing or touching/steadying/contact guard assistance fro m one helper? Yes. 1. [id number] ADMISSION PERFORMANCE: Supervision or touching assistance CODE: 04 TRANSFER TOILET: TOILET TRANSFER - STEP 1: Does the patient complete the activity by him/herself with no assistance (physical, verbal/nonverbal cueing, setup/clean-up)? No. TOILET TRANSFER - STEP 2: Does the patient need only setup/clean-up assistance from one helper? No. TOILET TRANSFER - STEP 3: Does the patient need only verbal/nonverbal cueing or touching/steadying/contact guard assistance fro m one helper? Yes. 1. [id number] ADMISSION PERFORMANCE: Supervision or touching assistance CODE: 04 TRANSFERS: CAR: Not assessed/no information CODE: - WALK 10 FEET: Not assessed/no information CODE: - 1 STEP (CURB): Not assessed/no information CODE: - PICKING UP OBJECT: Not assessed/no information CODE: - DOES THE PATIENT USE A WHEELCHAIR/SCOOTER? CODE: EXPR WHEEL 50 FEET WITH TWO TURNS: Not assessed/no information CODE: - INDICATE THE TYPE OF WHEELCHAIR/SCOOTER USED: CODE: EXPR WHEEL 150 FEET: Not assessed/no information CODE: - INDICATE THE TYPE OF WHEELCHAIR/SCOOTER USED: CODE: EXPR BLADDER AND BOWEL: H350. BLADDER CONTINENCE (3-DAY ASSESSMENT PERIOD): Stress incontinence only CODE: 1 H400. BOWEL CONTINENCE (3-DAY ASSESSMENT PERIOD): Always continent CODE: 0 SIGNATURE PANEL: The following modified sections: 1. [id number] Admission Performance, 1. [id number] Admission Performance, 1. [id number] Admission Performance, 1. [id number] Admission Performance, 1. [id number] Admission Performance, Code, H350. Bladder Continence (3-day assessment period), H400. Bowel Continence (3-day assessment p eriod) were [electronically] signed by Raúl Schulz on FriFeb 17 2020 11:23:57 T-0500 ([facility]
--- NOTE | 2020-02-17 17:54 | R.PN ---
ENCOUNTER DATE AND TIME: 02/17/2020 17:50 (CDT) NAME JUAN DIEGO OLIVEIRA DATE OF : 1945 DATE OF ADMISSION: 01/24/2020 16:32 (CDT) CABGCHIEF COMPLAINT: S/P CABG for CAD SUBJECTIVE: Pt denied any depression. Pt denied any Shortness of Breath. Ambulated 450' with contact guard assistance. His O2 sat dropped to 81 %. He will likely need home O2 and a wheelchair at home. Patient states that pain is under control. Therapeutic exercises done with 5lb t-bar, 3 sets of 15 with observation. He is on Bactrim Ds bid from 02-10-20 to 02-17-20. WBC 6.8, Hgb 9.5, glucose 67 to 182, prealbumin 18.7. VITAL SIGNS Temperature: 97.5 F SBP/DBP: 126/63 Pulse: 91 Resp: 16 MEDICATION ALLERGIES: CIPROFLOXACIN PEN (PENICILLINS) ENVIRONMENTAL ALLERGIES: - Substance Allergies None Known - Other Allergies None Known NURSING: - Shower allowing shower ACTIVITIES OOB only with supervision THERAPIES: - Dietary and Nutrition Adequate Nutrition. Nutritional Education. Nutritional Supplements. PHYSICAL EXAM - Gen Alert and awake Sitting in chair No apparent distress Oriented to: person, time, and place - Skin No skin breakdown. Normacephalic - Eyes No abnormalities - ENMT No abnormalities - Neck No abnormalities - CVS RRR - Chest Mildly decreased breath sounds bilaterally. - Resp Clear to auscultation - Abd Soft - GI Non distended Deferred - No abnormalities - Ext Mild bilateral lower extremity edema. - MSK 4+/5 weakness in both lower extremities. - Neuro No focal deficits - Psych No abnormalities ASSESSMENT: Pt. is a 74 yo Right-handed white male.On 01/21/2020 he was admitted to [facility] with diag nosis CABG.His impairment category is Cardiac 09 - Cardiac Disorders (09).Pre-morbidly, Pt. was inde pendent/mod-I in Endurance, Self-Care, Locomotion, and Transfers Control; and he had good Safety Awar eness, Balance, Communication, Endurance, Social Cognition, and Sphincter Control.Currently, he has d eficits of Endurance, Self-Care, Transfers Control, Safety Awareness, and Locomotion.Pt. is now refer red to [facility] for acute in-patient rehabilitation in order to maximize pat ient's functional independence in activities of daily living, strength, ROM, and mobility.- Rehab Goa l Patient has realistic goal of being discharged at assistance level 6-Steffany to reside at Home with Fam amrik/Relatives. MDM/PLAN: - Physical Therapy Gait dysfunction - to improve, our physical therapists will perform initial evaluation of pt's statu s upon admission and devise an individualized program for Gait Training, and Wheel Chair mobility Inability to transfer - to improve, our physical therapists will perform initial evaluation of pt's status upon admission and devise an individualized program for Bed mobility Need for home safety evaluation - to improve, our physical therapists will perform initial evaluatio n of pt's status upon admission and devise an individualized program for Home Evaluation Need in caregiver upon discharge - to improve, our physical therapists will perform initial evaluati on of pt's status upon admission and devise an individualized program for Caregiver Training Edema - to improve, our physical therapists will perform initial evaluation of pt's status upon admi ssion and devise an individualized program for Elevation Training, and Lymphedema Therapy New precaution - to improve, our physical therapists will perform initial evaluation of pt's status upon admission and devise an individualized program for Patient precaution education Poor endurance - to improve, our physical therapists will perform initial evaluation of pt's status upon admission and devise an individualized program for Endurance Training Weakness - to improve, our physical therapists will perform initial evaluation of pt's status upon a dmission and devise an individualized program for Aquatic Therapy, Neuromuscular Reeducation, and Str engthening Achieving independence - to improve, our physical therapists will perform initial evaluation of pt's status upon admission and devise an individualized program for Community Reintegration Activities - Occupational Therapy ADL deficits - to improve, our occupation therapists will perform initial evaluation of pt's status upon admission and devise an individualized program for Bathing, Bed mobility, Community Reintegratio n, Cooking, Dressing, Eating, Fine Motor Skills, Grooming, Homemaking, Kitchen Mobility, Laundry, Pat ient Education, Safety Awareness, Splinting - Positioning, Transfers(Toilet, Tub, Shower), and Wheel Chair Management Need for palliative care nurse - to improve, our occupation therapists will perform initial evaluation of pt's status upon admission and devise an individualized program for Caregiver Training Weakness - to improve, our occupation therapists will perform initial evaluation of pt's status upon admission and devise an individualized program for Aquatic Therapy, Balance, Endurance, UE ROM, and UE strengthening - Other See attached MAR (Medication Administration Record) - Diet Type Continue Regular - Diet - Liquid Texture Continue Regular - Tube Feed Continue N/A - Diet - Solid Texture Continue Regular - Shower allowing shower FUNCTIONAL STATUS: UPDATED AT WEEKLY TEAM CONFERENCE - Bladder Same accident frequency: 7-Ind - No accidents in the past 7 days - Bowel Same accident frequency: 7-Ind - No accidents in the past 7 days - Walking Same score based on distance walked: 0(N/A) - Wheelchair Same score based on distance traveled: 1(<=50ft) FUNCTIONAL STATUS: - Self-Care A. Eating Ind B. Grooming Ind C. Bathing modA D. Dressing - Upper Arina E. Dressing - Lower modA F. Toileting Arina - Sphincter Control G. Bladder control Steffany H. Bowel control Steffany - Transfers Control I. Bed/Chair/Wheelchair modA J. Toilet modA K. Tub/Shower modA - Locomotion L. Walk/Wheelchair (B) modA M. Stairs ADNO - Communication N. Comprehension (B) Ind O. Expression (B) Ind - Social Cognition P. Social Interaction Ind Q. Problem Solving Ind R. Memory Ind - Endurance Fair - Balance Fair - Safety Awareness Good QI SCORES: - Self-Care A. Eating 06-Independent B. Oral hygiene 01-Dependent C. Toileting hygiene 02-Substantial/maximal assistance E. Shower/bathe self 02-Substantial/maximal assistance F. Upper body dressing 03-Partial/moderate assistance G. Lower body dressing 88-Not attempted due to medical condition or safety concerns H. Putting on/taking off footwear 03-Partial/moderate assistance - Mobility A. Roll left and right 04-Supervision or touching assistance B. Sit to lying 03-Partial/moderate assistance C. Lying to sitting on side of bed 03-Partial/moderate assistance D. Sit to stand 02-Substantial/maximal assistance E. Chair/pew-wx-[id number] transfer 02-Substantial/maximal assistance F. Toilet transfer 02-Substantial/maximal assistance G. Car transfer 88-Not attempted due to medical condition or safety concerns I. Walk 10 feet 88-Not attempted due to medical condition or safety concerns J. Walk 50 feet with two turns 88-Not attempted due to medical condition or safety concerns K. Walk 150 feet 88-Not attempted due to medical condition or safety concerns L. Walking 10 feet on uneven surfaces 88-Not attempted due to medical condition or safety concerns M. 1 step (curb) 88-Not attempted due to medical condition or safety concerns N. 4 steps 88-Not attempted due to medical condition or safety concerns O. 12 steps 88-Not attempted due to medical condition or safety concerns P. Picking up object 06-Independent R. Wheel 50 feet with two turns 88-Not attempted due to medical condition or safety concerns S. Wheel 150 feet 88-Not attempted due to medical condition or safety concerns - Bladder and Bowel Bladder continence 0-Always continent Bowel continence 0-Always continent - Endurance Fair - Balance Poor - Safety Awareness Fair [facility] DEFICITS: Mobility, Endurance, Balance, Safety Awareness, and Self-Care SIGNATURE PANEL: (CDT)
--- NOTE | 2020-02-18 17:13 | R.DS ---
FACILITY [facility] MR# [id number] NAME JUAN DIEGO OLIVEIRA ADDRESS [address] [place] [address] [address] [address] PHONE DATE OF 1945 AGE 74 SSN# [id number] GENDER Male DEXTERITY Right-handed MARITAL STATUS RACE White ENCOUNTER PHYSICIAN Dr. Eduardo Bajwa M.D. REFERRING DOCTOR Dr. Jordan REFERRING FACILITY [facility] DISCHARGE DIAGNOSIS: - Cardiac 09 - Cardiac Disorders () CABG. DATE OF ADMISSION 01/24/2020 16:32 (CDT) MEDICATION ALLERGIES: CIPROFLOXACIN PEN (PENICILLINS) ENVIRONMENTAL ALLERGIES: - Substance Allergies None Known - Other Allergies None Known DISCHARGE MEDICATIONS: Other- ContinueSee attached MAR (Medication Administration Record). NURSING: - Shower allowing shower ACTIVITIES OOB only with supervision THERAPIES: - Dietary and Nutrition Adequate Nutrition Nutritional Education Nutritional Supplements HISTORY OF PRESENT ILLNESS: Pt. is a 74 yo Right-handed white male.On 01/21/2020 he was admitted to [facility] with diag nosis CABG.His impairment category is Cardiac 09 - Cardiac Disorders ().Pre-morbidly, Pt. was inde pendent/mod-I in Endurance, Self-Care, Locomotion, and Transfers Control; and he had good Safety Awar eness, Balance, Communication, Endurance, Social Cognition, and Sphincter Control.Currently, he has d eficits of Endurance, Self-Care, Transfers Control, Safety Awareness, and Locomotion.Pt. is now refer red to [facility] for acute in-patient rehabilitation in order to maximize pat ient's functional independence in activities of daily living, strength, ROM, and mobility.- Rehab Goa l Patient has realistic goal of being discharged at assistance level 6-Steffany to reside at Home with Fam amrik/Relatives. DIET - LIQUID TEXTURE: On 01/24/2020 Pt was upgraded to Regular Diet - Liquid Texture. DIET - SOLID TEXTURE: On 01/24/2020 Pt was upgraded to Regular Diet - Solid Texture. DIET TYPE: On 01/24/2020 Pt was upgraded to Regular Diet Type. TUBE FEED: On 01/24/2020 Pt was changed to N/A Tube Feed. DISCHARGE PHYSICAL EXAM - Gen Alert and awake Sitting in chair No apparent distress Oriented to: person, time, and place - Skin No skin breakdown. Normacephalic - Eyes No abnormalities - ENMT No abnormalities - Neck No abnormalities - CVS RRR - Chest Mildly decreased breath sounds bilaterally. - Resp Clear to auscultation - Abd Soft - GI Non distended Deferred - No abnormalities - Ext Mild bilateral lower extremity edema. - MSK 4+/5 weakness in both lower extremities. - Neuro No focal deficits - Psych No abnormalities FUNCTIONAL STATUS: - Self-Care A. Eating 7-Ind B. Grooming 7-Ind C. Bathing 4-Arina D. Dressing - Upper 5-sup E. Dressing - Lower 4-Arina F. Toileting 4-Arina - Sphincter Control G. Bladder control 6-Steffany H. Bowel control 6-Steffany - Transfers Control I. Bed/Chair/Wheelchair 5-sup J. Toilet 5-sup K. Tub/Shower 4-Arina - Locomotion L. Walk/Wheelchair (B) 5-sup M. Stairs 5-sup - Communication N. Comprehension (B) 7-Ind O. Expression (B) 7-Ind - Social Cognition P. Social Interaction 7-Ind Q. Problem Solving 7-Ind R. Memory 7-Ind - Endurance Fair - Balance Fair - Safety Awareness Good QI SCORES: - Self-Care A. Eating 06-Independent B. Oral hygiene 01-Dependent C. Toileting hygiene 02-Substantial/maximal assistance E. Shower/bathe self 02-Substantial/maximal assistance F. Upper body dressing 03-Partial/moderate assistance G. Lower body dressing 88-Not attempted due to medical condition or safety concerns H. Putting on/taking off footwear 03-Partial/moderate assistance - Mobility A. Roll left and right 04-Supervision or touching assistance B. Sit to lying 03-Partial/moderate assistance C. Lying to sitting on side of bed 03-Partial/moderate assistance D. Sit to stand 02-Substantial/maximal assistance E. Chair/akp-fv-iwcdz transfer 02-Substantial/maximal assistance F. Toilet transfer 02-Substantial/maximal assistance G. Car transfer 88-Not attempted due to medical condition or safety concerns I. Walk 10 feet 88-Not attempted due to medical condition or safety concerns J. Walk 50 feet with two turns 88-Not attempted due to medical condition or safety concerns K. Walk 150 feet 88-Not attempted due to medical condition or safety concerns L. Walking 10 feet on uneven surfaces 88-Not attempted due to medical condition or safety concerns M. 1 step (curb) 88-Not attempted due to medical condition or safety concerns N. 4 steps 88-Not attempted due to medical condition or safety concerns O. 12 steps 88-Not attempted due to medical condition or safety concerns P. Picking up object 06-Independent R. Wheel 50 feet with two turns 88-Not attempted due to medical condition or safety concerns S. Wheel 150 feet 88-Not attempted due to medical condition or safety concerns - Bladder and Bowel Bladder continence 0-Always continent Bowel continence 0-Always continent - Endurance Fair - Balance Poor - Safety Awareness Fair DISCHARGE INSTRUCTIONS: - N/A Eliquis 2.5 mg twice daily, Aspirin 81 mg daily. Wound care as directed for stage 2 decubitus buttock s ulcer. DISCHARGE PLAN, FOLLOW UP CARE PROVISIONS: - Estimated Length of Stay (days) 14. - Consensus on plan Discharge plan has been discussed with primary caregiver. Patient/Family is in agreement with the melly n. Primary caregiver is in agreement with the plan. - Patient/Family Goals Return home with assistance. - Planned Living Setting Upon Discharge Home, to live with Family/Relatives. SIGNATURE PANEL: (CDT)
== END 2020-02-07 22:20 | disposition short-term general hospital (02) | DRG 302 ==
LOC: 5TH 16:32
PROVIDERS: ADMIT Psychiatry & Neurology Neurology with Special Qualifications in Child Neurology; ATTEND Psychiatry & Neurology Neurology with Special Qualifications in Child Neurology
DX: I25.10 Atherosclerotic heart disease of native coronary artery without angina pectoris (principal); I50.33 Acute on chronic diastolic (congestive) heart failure; N17.9 Acute kidney failure, unspecified; Z95.5 Presence of coronary angioplasty implant and graft; L89.322 Pressure ulcer of left buttock, stage 2; E11.649 Type 2 diabetes mellitus with hypoglycemia without coma; I11.0 Hypertensive heart disease with heart failure; N40.1 Benign prostatic hyperplasia with lower urinary tract symptoms; R33.8 Other retention of urine; N30.90 Cystitis, unspecified without hematuria; D64.9 Anemia, unspecified; Z95.3 Presence of xenogenic heart valve; Z85.51 Personal history of malignant neoplasm of bladder; Z79.4 Long term (current) use of insulin
CPT/HCPCS: 36415; 70450; 71045; 71046; 71250; 80048; 80053; 81001; 81003; 81015; 82040; 82947; 83605; 83735; 84134; 84145; 85025; 87040; 87070; 87075; 87077; 87086; 87088; 87186; 87205; 87324; 87449; 97110; 97116; 97161; 97530; 97542; J0692; J1644; J1650; J1815; J7030; J7040

== ENCOUNTER 2020-02-07 22:55 | Observation (INO) | payer OTHER, MEDICARE ==
--- OUTSIDE RECORDS SUMMARY | 2020-02-07 23:18 | XMS REPORT ---
:1945 Author Organization [facility] Address [address] [place] [address] Dr. Bell [address] [place] [id number] Care Team Providers Name Role Phone Unavailable Unavailable Unavailable Problems This patient has no known problems. Allergies, Adverse Reactions, Alerts This patient has no known allergies or adverse reactions. Medications This patient has no known medications.
[2020-02-07] MEDS ORDERED: ONDANSETRON 4 MG/2 ML VIAL IV PRN (23:31)
[2020-02-07] MEDS ORDERED: ACETAMINOPHEN 500 MG TAB PO PRN (23:31)
[2020-02-07] MEDS ORDERED: MORPHINE 2 MG/ML SYR IV PRN (23:31)
[2020-02-07] MEDS ORDERED: CEFTRIAXONE 1 GM/NS 50 ML 1 GM/50 ML BAG IV ONE (23:34)
[2020-02-07] MEDS ORDERED: NA CHLORIDE 0.9% 1,000 ML IV SCH (23:45)
[2020-02-08] MEDS ORDERED: CEFTRIAXONE/SWI 1gm 1 GM/10 ML SYR ONE (00:27)
[2020-02-08] MEDS ORDERED: CEFTRIAXONE/SWI 1gm 1 GM/10 ML SYR IV SCH (03:00)
[2020-02-08 08:00] LABS: Albumin 2.1 g/dL (3.4-5.0); Bilirubin Total 0.5 mg/dL (0.2-1.0); Potassium 3.4 mmol/L (3.5-5.1); Protein, Total 6.7 g/dL (6.4-8.2)
[2020-02-08 08:36] LABS: Absolute Lymphocytes (CBC) 0.8 K/uL (0.7-4.9); Basophils % 0.5 % (0-1.3); Lymphocytes % 9.9 % (15.3-44.8); MPV 7.2 fL (7.6-11.3); RBC Red Blood Cell Count 2.95 M/uL (4.33-5.43)
[2020-02-08] MEDS ORDERED: AZITHROMYCIN IV 500 MG in NA CHLORIDE 0.9% 250 ML IVPB SCH (09:00)
[2020-02-08] MEDS ORDERED: CEFTRIAXONE 1 GM/NS 50 ML 1 GM/50 ML BAG IV SCH (09:00)
[2020-02-08] MEDS: CEFTRIAXONE/SWI 1gm 1 GM/10 ML SYR IV SCH ×2 (09:08→20:18)
[2020-02-08] MEDS ORDERED: LACTULOSE 20 GM/30 ML UCUP PO PRN (17:49)
--- NOTE | 2020-02-08 17:56 | P.PN ---
Subjective Date of Service: 02/08/20 Subjective: No new changes, No C/O voiced, New changes, C/O voiced (constipaqtion) Physical Examination - Vital Signs Temperature: 99.3 F Blood Pressure: 145/71 Pulse: 109 Respirations: 28 Pulse Ox (%): 91 - Physical Exam General: Alert, In no apparent distress, Oriented x3 HEENT: Atraumatic, Normocephalic Neck: 2+ carotid pulse no bruit, JVD not distended Respiratory: Diminished, Crackles/rales Cardiovascular: Normal pulses, Regular rate/rhythm, Normal S1 S2, Other (sternotomy scar) Gastrointestinal: Normal bowel sounds, Soft and benign, Non-distended Musculoskeletal: No clubbing, Swelling Neurological: Normal speech, Normal strength at 5/5 x4 extr - Studies Laboratory Data (last 24 hrs) 02/08/20 04:07: Sodium 138, Potassium 3.4 L, BUN 35 H, Creatinine 1.30, Glucose 117 H, Total Bilirubin 0.5, AST 13 L, ALT 8 L, Alkaline Phosphatase 109 02/08/20 04:07: WBC 8.0 D, Hgb 8.5 L, Hct 26.0 L, Plt Count 216 Microbiology Data (last 24 hrs): 02/08/20 00:17 Nasopharnyx Coronavirus COVID-19 PCR - Final 02/08/20 00:17 Nasopharnyx Influenza Type A Antigen Screen - Final 02/08/20 00:17 Nasopharnyx Influenza Type B Antigen Screen - Final Assessment And Plan Physician Review: Patient Assessed, Agree with Above Assessment and Plan Physician Review Additional Text: # Fever - on abx -follow blood cx -follow pedning covid 19 testing -still possible due to UTI and sacral ulcer # Constipation - start lactulose prn # Mild dyspnea -given hx of diastolic CHF- may be due to fluid overload vs pna -will hold IVF -follow repeat bmp for k - dose lasix x1 now - c/w 02 need up to 4 L now -wean as tolerated # s/p recent CABG/[place]ov[place] aortic valve replacement - c/w to monitor , stable # DVT prop - addressed # DM - c/w insulin regime
[2020-02-08] MEDS ORDERED: FUROSEMIDE 40 MG/4 ML VIAL IV ONE (21:00)
[2020-02-08] MEDS ORDERED: POTASSIUM 25 MEQ EFFERV TAB PO ONE (21:00)
[2020-02-08] MEDS ORDERED: TEMAZEPAM 15 MG CAP PO ONE (21:44)
[2020-02-09 03:33] LABS: Basophils % 0.9 % (0-1.3); Hematocrit 26.7 % (39.6-49.0); Lymphocytes % 12.6 % (15.3-44.8); MPV 7.5 fL (7.6-11.3); RBC Red Blood Cell Count 3.04 M/uL (4.33-5.43)
[2020-02-09 03:43] LABS: Albumin 2.1 g/dL (3.4-5.0); Bilirubin Total 0.4 mg/dL (0.2-1.0); Magnesium 1.7 mg/dL (1.8-2.4); Potassium 3.5 mmol/L (3.5-5.1); Protein, Total 7.2 g/dL (6.4-8.2)
[2020-02-09 04:04] VITALS: BMI 36.5
[2020-02-09] MEDS ORDERED: ALBUTEROL INHALER 60 PUFF/8 GM IH PRN (07:30)
[2020-02-09] MEDS: CEFTRIAXONE/SWI 1gm 1 GM/10 ML SYR IV SCH ×2 (08:06→20:43)
[2020-02-09] MEDS ORDERED: LOPERAMIDE HCL 2 MG CAPSULE PO PRN (11:04)
[2020-02-09] MEDS ORDERED: GLUCAGON 1 MG/VIAL IM PRN (11:04)
[2020-02-09] MEDS ORDERED: TRAZODONE 50 MG TABLET PO PRN (11:04)
[2020-02-09] MEDS ORDERED: D50W 25 GM/50 ML SYRINGE/VIAL IV PRN (11:04)
[2020-02-09] MEDS ORDERED: NYSTATIN OINT 15 GM TUBE TOP PRN (11:04)
[2020-02-09] MEDS: INSULIN -REGULAR HUMAN 50 UNIT/0.5 ML ML SQ SCH ×3 (11:30→20:44)
--- NOTE | 2020-02-09 12:09 | P.HP ---
Certification for Inpatient Patient admitted to: Observation With expected LOS: <2 Midnights Patient will require the following post-hospital care: None Practitioner: I am a practitioner with admitting privileges, knowledge of patient current condition, hospital course, and medical plan of care. Services: Services provided to patient in accordance with Admission requirements found in Title 42 Section 412.3 of the Code of Federal Regulations Patient History Date of Service: 02/07/20 Reason for admission: Fever; cough; congestion History of Present Illness: Patient is a 74yo who was admitted to the hospital for rehab s/p CABG; patient had been doing well up until 48 hr ago when he started running fevers. Patient had a temp of a 101. However, he was also having coughing congestion. His workup did reveal a urinary tract infection. He has also having upper respiratory symptoms and because of the pandemic currently going on in the world with COVID-19 decision was made to move him from rehab and to place him on our C[facility]-19 floor to be ruled due to an abundance of caution for the staff and the other patients. . Allergies Penicillins Allergy (Verified 02/07/20 07:24) unk ciprofloxacin HCl [From Cipro] Adverse Reaction (Verified 02/07/20 07:24) Nausea/Vomiting Home Medications: Acetaminophen [Tylenol*] 650 mg PO Q6H PRN tab 02/07/20 Albuterol Neb [Proventil 0.083% Neb Soln] 2.5 mg NEB [id number] PRN amp 02/07/20 Apixaban [Eliquis *] 2.5 mg PO BID tablet 02/07/20 Atorvastatin Calcium [Lipitor*] 20 mg PO BEDTIME tab 02/07/20 Clopidogrel Bisulfate [Plavix*] 75 mg PO DAILY tablet 02/07/20 Cranberry Fruit Extract 400 mg PO BID cap 02/07/20 Ferrous Sulfate [Ferrous Sulfate*] 325 mg PO DAILY tab 02/07/20 Finasteride [Proscar*] 5 mg PO DAILY tab 02/07/20 Furosemide [Lasix*] 20 mg PO DAILY tab 02/07/20 Glipizide S.a. [Glucotrol Xl*] 5 mg PO BIDWM tab 02/07/20 Insulin -Regular Human [Novolin -R*] See Protocol SQ ACHS ml 02/07/20 Insulin Glargine Human [Lantus*] 25 units SQ BID ml 02/07/20 Iron/FA/Vit B-Com W/C [Hemocyte Plus*] 1 tab PO DAILY WITH BREAKFAST tab 02/07/20 Loperamide [Imodium*] 2 mg PO Q4H PRN cap 02/07/20 Medihoney [Medihoney Woundcare Gel*] 1 appl TOP DAILY tube 02/07/20 Melatonin [Melatonin*] 3 mg PO BEDTIME tablet 02/07/20 Metformin HCl [Glucophage*] 500 mg PO BIDWM tab 02/07/20 Nystatin Oint [Mycostatin 100 Mu/Gm Oint*] 1 appl TOP BID PRN tube 02/07/20 Pantoprazole [Protonix Tab*] 40 mg PO ACB tab 02/07/20 Potassium Oral Tab [Klor-Con 10 mEq Tab*] 10 meq PO DAILY tab 02/07/20 Tamsulosin [Flomax*] 0.4 mg PO BID cap 02/07/20 Trazodone [Desyrel*] 25 mg PO BEDTIME PRN PRN tablet 02/07/20 carvediloL [Coreg*] 3.125 mg PO BID tab 02/07/20 gemfibroziL [Lopid*] 600 mg PO BID tab 02/07/20 traMADol HCL [Ultram*] 50 mg PO BEDTIME tab 02/07/20 - Past Medical/Surgical History Has patient received pneumonia vaccine in the past: Yes Diabetic: Yes -: HTN -: IDDM -: BLadder CAncer -: high cholesterol -: CAD -: Bladder tumor removal -: tonsillectomy -: cyst removal X2 on back -: CABG 01/11/20 -: cholecystectomy - Family History Mother Medical History: Heart disease, Hypertension Brother Medical History: Lung disease, Diabetes Sister Medical History: Lung disease - Social History Smoking Status: Former smoker Alcohol use: No CD- Drugs: No Caffeine use: Yes Review of Systems 10-point ROS is otherwise unremarkable Physical Examination - Vital Signs Temperature: 98.3 F Blood Pressure: 151/66 Pulse: 99 Respirations: 24 Pulse Ox (%): 92 - Physical Exam General: Alert, In no apparent distress, Oriented x3 HEENT: Atraumatic, PERRLA, Mucous membr. moist/pink, EOMI, Sclerae nonicteric Neck: Supple, 2+ carotid pulse no bruit, No LAD, Without JVD or thyroid abnormality Respiratory: Clear to auscultation bilaterally, Normal air movement Cardiovascular: Regular rate/rhythm, Normal S1 S2, Systolic murmur Gastrointestinal: Normal bowel sounds, Soft and benign, Non-distended, No tenderness Musculoskeletal: No clubbing, No swelling, No tenderness Integumentary: No rashes Neurological: Normal speech, Normal tone, Sensation intact, Cranial nerves 3-12 intact, Normal affect, Abnormal gait, Abnormal strength Lymphatics: No axilla or inguinal lymphadenopathy - Studies Laboratory Data (last 24 hrs) 02/09/20 18:00: Magnesium Cancelled 02/09/20 03:03: Sodium 141, Potassium 3.5, BUN 24 H, Creatinine 1.12, Glucose 159 H, Magnesium 1.7 L, Total Bilirubin 0.4, AST 14 L, ALT 10 L, Alkaline Phosphatase 119 H 02/09/20 03:03: WBC 7.7, Hgb 8.7 L, Hct 26.7 L, Plt Count 236 02/08/20 18:44: Magnesium 1.8 Microbiology Data (last 24 hrs): 02/08/20 00:17 Nasopharnyx Coronavirus COVID-19 PCR - Final Assessment & Plan - Problems (Diagnosis) (1) History of coronary artery bypass graft Current Visit: Yes Status: Acute (2) Fever Current Visit: Yes Status: Acute (3) UTI (urinary tract infection) Current Visit: Yes Status: Acute (4) Suspected COVID-19 virus infection Current Visit: Yes Status: Acute (5) History of diabetes mellitus, type II Current Visit: Yes Status: Acute (6) History of hypertension Current Visit: Yes Status: Acute (7) History of BPH Current Visit: Yes Status: Acute - Plan Plan: 1. Test for COVID-19 2. Continue antibiotics for UTIs 3. Gentle hydration 4. Out of bed and ambulate 5. Pain control 6. Monitor input and output 7. GI and DVT prophylaxis Discharge Plan: Home Plan to discharge in: 48 Hours - Advance Directives Does patient have a Living Will: Yes Does patient have a Durable POA for Healthcare: Yes - Code Status/Comfort Care Code Status Assessed: Yes Code Status: Full Code Physician Review: Patient Assessed, Agree with Above Assessment and Plan Critical Care: No Time Spent Managing PTS Care (In Minutes): 45
[2020-02-09] MEDS ORDERED: METFORMIN HCL 500 MG TAB PO SCH (17:00)
[2020-02-09] MEDS ORDERED: GLIPIZIDE S.A. 5 MG TAB PO SCH (17:00)
[2020-02-09 17:47] VITALS: O2SAT 94
[2020-02-09 20:04] VITALS: BP 151/66; TEMP 98.3
--- NOTE | 2020-02-09 20:12 | P.DS ---
Discharge Date: 02/09/20 Disposition: TRANSFER TO INPATIENT REHAB Discharge Condition: GOOD Reason for Admission: Fever; cough; congestion - Problems (1) History of coronary artery bypass graft Current Visit: Yes Status: Acute (2) Fever Current Visit: Yes Status: Acute (3) UTI (urinary tract infection) Current Visit: Yes Status: Acute (4) Suspected COVID-19 virus infection Current Visit: Yes Status: Acute (5) History of diabetes mellitus, type II Current Visit: Yes Status: Acute (6) History of hypertension Current Visit: Yes Status: Acute (7) History of BPH Current Visit: Yes Status: Acute Brief History of Present Illness: Patient is a 74yo who was admitted to the hospital for rehab s/p CABG; patient had been doing well up until 48 hr ago when he started running fevers. Patient had a temp of a 101. However, he was also having coughing congestion. His workup did reveal a urinary tract infection. He has also having upper respiratory symptoms and because of the pandemic currently going on in the world with COVID-19 decision was made to move him from rehab and to place him on our COVID-19 floor to be ruled due to an abundance of caution for the staff and the other patients. . Hospital Course: Patient is doing well and is stable. COVID-19 was negative. OK to go back to rehab. Vital Signs/Physical Exam: Temp Pulse Resp BP Pulse Ox 98.3 F 99 H 24 H 151/66 H 92 02/09/20 20:04 02/09/20 20:04 02/09/20 20:04 02/09/20 20:04 02/09/20 20:04 General: Alert, In no apparent distress, Oriented x3 Laboratory Data at Discharge: WBC 7.7 K/uL (4.3-10.9) 02/09/20 03:03 Hgb 8.7 g/dL (13.6-17.9) L 02/09/20 03:03 Hct 26.7 % (39.6-49.0) L 02/09/20 03:03 Plt Count 236 K/uL (152-406) 02/09/20 03:03 Sodium 141 mmol/L (136-145) 02/09/20 03:03 Potassium 3.5 mmol/L (3.5-5.1) 02/09/20 03:03 BUN 24 mg/dL (7-18) H 02/09/20 03:03 Creatinine 1.12 mg/dL (0.55-1.3) 02/09/20 03:03 Glucose 159 mg/dL (74-106) H 02/09/20 03:03 Magnesium Cancelled 02/09/20 18:00 Total Bilirubin 0.4 mg/dL (0.2-1.0) 02/09/20 03:03 AST 14 U/L (15-37) L 02/09/20 03:03 ALT 10 U/L (12-78) L 02/09/20 03:03 Alkaline Phosphatase 119 U/L (45-117) H 02/09/20 03:03 Home Medications: Acetaminophen [Tylenol*] 650 mg PO Q6H PRN tab 02/07/20 Albuterol Neb [Proventil 0.083% Neb Soln] 2.5 mg NEB [id number] PRN amp 02/07/20 Apixaban [Eliquis *] 2.5 mg PO BID tablet 02/07/20 Atorvastatin Calcium [Lipitor*] 20 mg PO BEDTIME tab 02/07/20 Clopidogrel Bisulfate [Plavix*] 75 mg PO DAILY tablet 02/07/20 Cranberry Fruit Extract 400 mg PO BID cap 02/07/20 Ferrous Sulfate [Ferrous Sulfate*] 325 mg PO DAILY tab 02/07/20 Finasteride [Proscar*] 5 mg PO DAILY tab 02/07/20 Furosemide [Lasix*] 20 mg PO DAILY tab 02/07/20 Glipizide S.a. [Glucotrol Xl*] 5 mg PO BIDWM tab 02/07/20 Insulin -Regular Human [Novolin -R*] See Protocol SQ ACHS ml 02/07/20 Insulin Glargine Human [Lantus*] 25 units SQ BID ml 02/07/20 Iron/FA/Vit B-Com W/C [Hemocyte Plus*] 1 tab PO DAILY WITH BREAKFAST tab 02/07/20 Loperamide [Imodium*] 2 mg PO Q4H PRN cap 02/07/20 Medihoney [Medihoney Woundcare Gel*] 1 appl TOP DAILY tube 02/07/20 Melatonin [Melatonin*] 3 mg PO BEDTIME tablet 02/07/20 Metformin HCl [Glucophage*] 500 mg PO BIDWM tab 02/07/20 Nystatin Oint [Mycostatin 100 Mu/Gm Oint*] 1 appl TOP BID PRN tube 02/07/20 Pantoprazole [Protonix Tab*] 40 mg PO ACB tab 02/07/20 Potassium Oral Tab [Klor-Con 10 mEq Tab*] 10 meq PO DAILY tab 02/07/20 Tamsulosin [Flomax*] 0.4 mg PO BID cap 02/07/20 Trazodone [Desyrel*] 25 mg PO BEDTIME PRN PRN tablet 02/07/20 carvediloL [Coreg*] 3.125 mg PO BID tab 02/07/20 gemfibroziL [Lopid*] 600 mg PO BID tab 02/07/20 traMADol HCL [Ultram*] 50 mg PO BEDTIME tab 02/07/20 Patient Discharge Instructions: OK TO DC IV, Live, and AND DC to rehab Diet: AHA Activity: Fall precautions Time spent managing pt's care (in minutes): 20
[2020-02-09] MEDS ORDERED: TRAMADOL HCL 50 MG TAB PO SCH (21:00)
[2020-02-09] MEDS ORDERED: INSULIN GLARGINE 100 UNITS/ML SQ SCH (21:00)
[2020-02-09] MEDS ORDERED: TAMSULOSIN 0.4 MG SR CAP PO SCH (21:00)
[2020-02-09] MEDS ORDERED: gemfibroziL 600 MG TAB PO SCH (21:00)
[2020-02-09] MEDS ORDERED: CRANBERRY FRUIT EXTRACT 200 MG CAP PO SCH (21:00)
[2020-02-09] MEDS ORDERED: ATORVASTATIN 20 MG TAB PO SCH (21:00)
[2020-02-09] MEDS ORDERED: APIXABAN 2.5 MG TABLET PO SCH (21:00)
[2020-02-09] MEDS ORDERED: carvediloL 3.125 MG TAB PO SCH (21:00)
[2020-02-09] MEDS ORDERED: MELATONIN 3 MG TABLET PO SCH (21:00)
[2020-02-10] MEDS ORDERED: PANTOPRAZOLE 40MG TABLET PO SCH (07:30)
[2020-02-10] MEDS ORDERED: FE SULF/FA/VIT B COMP & C TAB PO SCH (08:00)
[2020-02-10] MEDS ORDERED: FERROUS SULFATE 325 MG TAB PO SCH (09:00)
[2020-02-10] MEDS ORDERED: CLOPIDOGREL 75 MG TABLET PO SCH (09:00)
[2020-02-10] MEDS ORDERED: MEDIHONEY 44 ML TOPICAL TUBE TOP SCH (09:00)
[2020-02-10] MEDS ORDERED: FINASTERIDE 5 MG TAB PO SCH (09:00)
[2020-02-10] MEDS ORDERED: FUROSEMIDE 20 MG TABLET PO SCH (09:00)
[2020-02-10] MEDS ORDERED: POTASSIUM CL SA 10 MEQ TAB PO SCH (09:00)
== END 2020-02-09 22:21 ==
LOC: 4TH 22:55
PROVIDERS: ADMIT Hospitalist; ATTEND Hospitalist
DX: N39.0 Urinary tract infection, site not specified (principal); R50.9 Fever, unspecified; Z03.818 Encounter for observation for suspected exposure to other biological agents ruled out; N40.0 Benign prostatic hyperplasia without lower urinary tract symptoms; E11.9 Type 2 diabetes mellitus without complications; I25.10 Atherosclerotic heart disease of native coronary artery without angina pectoris; I11.0 Hypertensive heart disease with heart failure; I50.30 Unspecified diastolic (congestive) heart failure; K59.00 Constipation, unspecified; R06.00 Dyspnea, unspecified; E78.00 Pure hypercholesterolemia, unspecified; Z95.1 Presence of aortocoronary bypass graft; Z95.2 Presence of prosthetic heart valve; Z85.51 Personal history of malignant neoplasm of bladder; Z79.4 Long term (current) use of insulin; Z87.891 Personal history of nicotine dependence; Z79.02 Long term (current) use of antithrombotics/antiplatelets; Z88.0 Allergy status to penicillin; Z88.3 Allergy status to other anti-infective agents; Z82.49 Family history of ischemic heart disease and other diseases of the circulatory system; Z83.3 Family history of diabetes mellitus
CPT/HCPCS: 36415; 80053; 82947; 83735; 85025; 87804; G0378; G0379; J0696; J1940; J7030; U0001

== ENCOUNTER 2020-02-09 23:20 | Inpatient (IN) | payer OTHER, MEDICARE ==
--- OUTSIDE RECORDS SUMMARY | 2020-02-09 23:25 | XMS REPORT ---
:[address] [facility] t Address [address] [place] [address] Dr. Bell [address] [place] [id number] Care Team Providers Name Role Phone Unavailable Unavailable Unavailable Problems This patient has no known problems. Allergies, Adverse Reactions, Alerts This patient has no known allergies or adverse reactions. Medications This patient has no known medications.
[2020-02-10] MEDS ORDERED: ALBUTEROL 2.5 MG/3 ML NEB SOL NEB PRN (00:21)
[2020-02-10] MEDS ORDERED: GLUCAGON 1 MG/VIAL IM PRN ×2 (00:27→16:55)
[2020-02-10] MEDS ORDERED: D50W 25 GM/50 ML SYRINGE/VIAL IV PRN ×2 (00:27→16:55)
[2020-02-10] MEDS ORDERED: LOPERAMIDE HCL 2 MG CAPSULE PO PRN (00:30)
[2020-02-10] MEDS ORDERED: NYSTATIN OINT 15 GM TUBE TOP PRN (00:32)
[2020-02-10] MEDS: TRAZODONE 50 MG TABLET PO PRN (01:06)
[2020-02-10] MEDS: carvediloL 3.125 MG TAB PO SCH ×2 (05:45→17:30)
[2020-02-10 06:03] LABS: Absolute Lymphocytes (CBC) 1.1 K/uL (0.7-4.9); Hematocrit 26.3 % (39.6-49.0); Lymphocytes % 16.4 % (15.3-44.8); MPV 7.5 fL (7.6-11.3); Potassium 3.7 mmol/L (3.5-5.1); Prealbumin 6.9 mg/dL (20-40); RBC Red Blood Cell Count 3.01 M/uL (4.33-5.43)
[2020-02-10] MEDS: INSULIN -REGULAR HUMAN 50 UNIT/0.5 ML ML SQ SCH ×4 (07:30→20:42)
[2020-02-10] MEDS: PANTOPRAZOLE 40MG TABLET PO SCH (07:30)
[2020-02-10] MEDS ORDERED: INSULIN GLARGINE 100 UNITS/ML SQ SCH (08:00)
[2020-02-10] MEDS: CRANBERRY FRUIT EXTRACT 200 MG CAP PO SCH ×2 (09:59→20:40)
[2020-02-10] MEDS: FE SULF/FA/VIT B COMP & C TAB PO SCH (10:00)
[2020-02-10] MEDS: CLOPIDOGREL 75 MG TABLET PO SCH (10:01)
[2020-02-10] MEDS: ACETAMINOPHEN 325 MG TABLET PO PRN ×2 (10:02→20:43)
[2020-02-10] MEDS: FERROUS SULFATE 325 MG TAB PO SCH (10:02)
[2020-02-10] MEDS: POTASSIUM CL SA 10 MEQ TAB PO SCH (10:03)
[2020-02-10] MEDS: FINASTERIDE 5 MG TAB PO SCH (10:03)
[2020-02-10] MEDS: FUROSEMIDE 20 MG TABLET PO SCH (10:04)
[2020-02-10] MEDS: METFORMIN HCL 500 MG TAB PO SCH (10:04)
[2020-02-10] MEDS: APIXABAN 2.5 MG TABLET PO SCH ×2 (10:05→20:41)
[2020-02-10] MEDS: TAMSULOSIN 0.4 MG SR CAP PO SCH ×2 (10:05→20:41)
[2020-02-10] MEDS: gemfibroziL 600 MG TAB PO SCH ×2 (10:25→20:42)
[2020-02-10] MEDS: MEDIHONEY 44 ML TOPICAL TUBE TOP SCH (10:25)
[2020-02-10] MEDS: GLIPIZIDE S.A. 5 MG TAB PO SCH ×2 (10:25→17:30)
[2020-02-10] MEDS ORDERED: PROMOD 30 ML DOSE PO SCH (20:00)
[2020-02-10] MEDS: INSULIN GLARGINE 100 UNITS/ML SQ SCH (20:40)
[2020-02-10] MEDS: TRAMADOL HCL 50 MG TAB PO SCH (20:41)
[2020-02-10] MEDS: SMZ./TMP. 800/160 MG TABLET PO SCH (20:41)
[2020-02-10] MEDS: ATORVASTATIN 20 MG TAB PO SCH (20:41)
[2020-02-10] MEDS: MELATONIN 3 MG TABLET PO SCH (20:41)
[2020-02-10] MEDS: JUVEN PACKET PO SCH (20:42)
[2020-02-11] MEDS: carvediloL 3.125 MG TAB PO SCH ×2 (05:13→17:47)
[2020-02-11] MEDS: PANTOPRAZOLE 40MG TABLET PO SCH (06:50)
[2020-02-11] MEDS: INSULIN -REGULAR HUMAN 50 UNIT/0.5 ML ML SQ SCH ×5 (07:30→20:30)
[2020-02-11] MEDS: JUVEN PACKET PO SCH ×3 (07:51→20:29)
[2020-02-11] MEDS: INSULIN GLARGINE 100 UNITS/ML SQ SCH ×2 (07:52→20:29)
[2020-02-11] MEDS: POTASSIUM CL SA 10 MEQ TAB PO SCH (07:52)
[2020-02-11] MEDS: gemfibroziL 600 MG TAB PO SCH ×2 (07:53→19:18)
[2020-02-11] MEDS: FINASTERIDE 5 MG TAB PO SCH (07:53)
[2020-02-11] MEDS: CRANBERRY FRUIT EXTRACT 200 MG CAP PO SCH ×2 (07:53→19:19)
[2020-02-11] MEDS: GLIPIZIDE S.A. 5 MG TAB PO SCH ×2 (07:53→17:48)
[2020-02-11] MEDS: SMZ./TMP. 800/160 MG TABLET PO SCH ×2 (07:54→19:21)
[2020-02-11] MEDS: CLOPIDOGREL 75 MG TABLET PO SCH (07:54)
[2020-02-11] MEDS: FERROUS SULFATE 325 MG TAB PO SCH (07:54)
[2020-02-11] MEDS: METFORMIN HCL 500 MG TAB PO SCH (07:54)
[2020-02-11] MEDS: APIXABAN 2.5 MG TABLET PO SCH ×2 (07:54→19:19)
[2020-02-11] MEDS: TAMSULOSIN 0.4 MG SR CAP PO SCH ×2 (07:54→19:19)
[2020-02-11] MEDS: FUROSEMIDE 20 MG TABLET PO SCH (07:54)
[2020-02-11] MEDS: FE SULF/FA/VIT B COMP & C TAB PO SCH (07:55)
[2020-02-11] MEDS: ACETAMINOPHEN 325 MG TABLET PO PRN (07:56)
--- NOTE | 2020-02-11 09:50 | P.RH.PN ---
Estimated Length of Stay: 22 Expected Discharge Date: 02/15/20 Discharge Disposition Plan: Home Family Support: Yes Long-Term Goal: Mobility, Transfers, Self Care Vital Signs: Last Vital Signs Temp 97.2 F 02/11/20 08:00 Pulse 94 H 02/11/20 08:00 Resp 18 02/11/20 08:00 BP 117/63 02/11/20 08:00 Pulse Ox 93 02/11/20 08:00 Laboratory: Laboratory Last Values WBC 6.8 K/uL (4.3-10.9) 02/10/20 05:21 RBC 3.01 M/uL (4.33-5.43) L 02/10/20 05:21 Hgb 8.4 g/dL (13.6-17.9) L 02/10/20 05:21 Hct 26.3 % (39.6-49.0) L 02/10/20 05:21 MCV 87.3 fL (80-100) 02/10/20 05:21 MCH 28.0 pg (27.0-35.0) 02/10/20 05:21 MCHC 32.0 g/dL (32.0-36.0) 02/10/20 05:21 RDW 15.9 % (12.1-15.2) H 02/10/20 05:21 Plt Count 256 K/uL (152-406) 02/10/20 05:21 MPV 7.5 fL (7.6-11.3) L 02/10/20 05:21 Neutrophils % 65.5 % (41.7-73.7) 02/10/20 05:21 Lymphocytes % 16.4 % (15.3-44.8) 02/10/20 05:21 Monocytes % 11.5 % (3.3-12.3) 02/10/20 05:21 Eosinophils % 5.6 % (0-4.4) H 02/10/20 05:21 Basophils % 1.0 % (0-1.3) 02/10/20 05:21 Absolute Neutrophils 4.5 K/uL (1.8-8.0) 02/10/20 05:21 Absolute Lymphocytes 1.1 K/uL (0.7-4.9) 02/10/20 05:21 Absolute Monocytes 0.8 K/uL (0.1-1.3) 02/10/20 05:21 Absolute Eosinophils 0.4 K/uL (0-0.5) 02/10/20 05:21 Absolute Basophils 0.1 K/uL (0-0.5) 02/10/20 05:21 Sodium 139 mmol/L (136-145) 02/10/20 05:21 Potassium 3.7 mmol/L (3.5-5.1) 02/10/20 05:21 Chloride 102 mmol/L (98-107) 02/10/20 05:21 Carbon Dioxide 31 mmol/L (21-32) 02/10/20 05:21 BUN 26 mg/dL (7-18) H 02/10/20 05:21 Creatinine 0.99 mg/dL (0.55-1.3) 02/10/20 05:21 Estimated GFR 74 mL/min (=/>90) L 02/10/20 05:21 Glucose 180 mg/dL (74-106) H 02/10/20 05:21 POC Glucose 162 mg/dl (65-120) H 02/11/20 07:27 Calcium 8.6 mg/dL (8.5-10.1) 02/10/20 05:21 Magnesium 2.0 mg/dL (1.8-2.4) 02/10/20 05:21 Albumin 2.0 g/dL (3.4-5.0) L 02/10/20 05:21 Prealbumin 6.9 mg/dL (20-40) L 02/10/20 05:21 Weight: 230 lb 11 oz Wound Present: Yes Closed Surgical Incision Present: Yes Negative Pressure Wound Therapy Present: No Physician Update: His labs were reviewed. His oxygen level gets low when walking. He may require home O2. He will be kept until next Friday. Functional Improvement: pt presents with mild <-> moderate generalized weakness. pt exhibits poor balance in standing due to lack of ankle dorsiflexion strength. pt demonstrates reduced gait stability due to ankle weakness. PT services are necessary to address the above mentioned impairments and functional limitations. pt was progressing well and should resume therapy and quickly recover from slight regression in function. Summary: Patient's care plan and care home goals have been reviewed and revised as necessary. Please see the Rehabilitation Signature page for all necessary signatures.
[2020-02-11] MEDS: MUPIROCIN 2% OINT 22GM TUBE TOP SCH (14:55)
[2020-02-11] MEDS: MEDIHONEY 44 ML TOPICAL TUBE TOP SCH (14:55)
[2020-02-11] MEDS: SODIUM CHLORIDE 0.9% 10ML INJ IV SCH (19:19)
[2020-02-11] MEDS: ATORVASTATIN 20 MG TAB PO SCH (20:30)
[2020-02-11] MEDS: MELATONIN 3 MG TABLET PO SCH (20:30)
[2020-02-11] MEDS: TRAMADOL HCL 50 MG TAB PO SCH (20:31)
[2020-02-11] MEDS: TRAZODONE 50 MG TABLET PO PRN (22:11)
[2020-02-12] MEDS: carvediloL 3.125 MG TAB PO SCH ×2 (05:06→17:24)
[2020-02-12 05:28] VITALS: BMI 36.5
[2020-02-12] MEDS: INSULIN -REGULAR HUMAN 50 UNIT/0.5 ML ML SQ SCH ×4 (07:30→20:20)
[2020-02-12] MEDS: SODIUM CHLORIDE 0.9% 10ML INJ IV SCH ×2 (08:00→19:46)
[2020-02-12] MEDS: MUPIROCIN 2% OINT 22GM TUBE TOP SCH (08:00)
[2020-02-12] MEDS: JUVEN PACKET PO SCH (08:00)
[2020-02-12] MEDS: SMZ./TMP. 800/160 MG TABLET PO SCH ×2 (08:00→19:44)
[2020-02-12] MEDS: INSULIN GLARGINE 100 UNITS/ML SQ SCH ×2 (08:59→20:19)
[2020-02-12] MEDS: METFORMIN HCL 500 MG TAB PO SCH (09:00)
[2020-02-12] MEDS: MEDIHONEY 44 ML TOPICAL TUBE TOP SCH (09:00)
[2020-02-12] MEDS: APIXABAN 2.5 MG TABLET PO SCH ×2 (09:00→19:43)
[2020-02-12] MEDS: PANTOPRAZOLE 40MG TABLET PO SCH (09:00)
[2020-02-12] MEDS: CLOPIDOGREL 75 MG TABLET PO SCH (09:00)
[2020-02-12] MEDS: FE SULF/FA/VIT B COMP & C TAB PO SCH (09:00)
[2020-02-12] MEDS: FERROUS SULFATE 325 MG TAB PO SCH (09:00)
[2020-02-12] MEDS: FINASTERIDE 5 MG TAB PO SCH (09:00)
[2020-02-12] MEDS: GLIPIZIDE S.A. 5 MG TAB PO SCH ×2 (09:01→17:19)
[2020-02-12] MEDS: FUROSEMIDE 20 MG TABLET PO SCH (09:01)
[2020-02-12] MEDS: TAMSULOSIN 0.4 MG SR CAP PO SCH ×2 (09:01→19:44)
[2020-02-12] MEDS: CRANBERRY FRUIT EXTRACT 200 MG CAP PO SCH ×2 (09:01→19:44)
[2020-02-12] MEDS: POTASSIUM CL SA 10 MEQ TAB PO SCH (09:01)
[2020-02-12] MEDS: gemfibroziL 600 MG TAB PO SCH ×2 (09:02→19:43)
[2020-02-12] MEDS: ACETAMINOPHEN 325 MG TABLET PO PRN (19:44)
[2020-02-12] MEDS: PROMOD 30 ML DOSE PO SCH (19:46)
[2020-02-12] MEDS: MELATONIN 3 MG TABLET PO SCH (20:19)
[2020-02-12] MEDS: TRAMADOL HCL 50 MG TAB PO SCH (20:19)
[2020-02-12] MEDS: ATORVASTATIN 20 MG TAB PO SCH (20:19)
[2020-02-12] MEDS: TRAZODONE 50 MG TABLET PO PRN (20:20)
[2020-02-13] MEDS: carvediloL 3.125 MG TAB PO SCH ×2 (05:08→17:08)
[2020-02-13] MEDS: PANTOPRAZOLE 40MG TABLET PO SCH (06:14)
[2020-02-13] MEDS: SODIUM CHLORIDE 0.9% 10ML INJ IV SCH ×2 (06:52→19:42)
[2020-02-13] MEDS: INSULIN -REGULAR HUMAN 50 UNIT/0.5 ML ML SQ SCH ×4 (07:30→20:29)
[2020-02-13] MEDS: METFORMIN HCL 500 MG TAB PO SCH (08:07)
[2020-02-13] MEDS: APIXABAN 2.5 MG TABLET PO SCH ×2 (08:07→19:41)
[2020-02-13] MEDS: TAMSULOSIN 0.4 MG SR CAP PO SCH ×2 (08:07→19:42)
[2020-02-13] MEDS: SMZ./TMP. 800/160 MG TABLET PO SCH ×2 (08:07→19:41)
[2020-02-13] MEDS: CRANBERRY FRUIT EXTRACT 200 MG CAP PO SCH ×2 (08:08→19:40)
[2020-02-13] MEDS: gemfibroziL 600 MG TAB PO SCH ×2 (08:08→19:41)
[2020-02-13] MEDS: POTASSIUM CL SA 10 MEQ TAB PO SCH (08:08)
[2020-02-13] MEDS: FINASTERIDE 5 MG TAB PO SCH (08:08)
[2020-02-13] MEDS: CLOPIDOGREL 75 MG TABLET PO SCH (08:09)
[2020-02-13] MEDS: FERROUS SULFATE 325 MG TAB PO SCH (08:09)
[2020-02-13] MEDS: FE SULF/FA/VIT B COMP & C TAB PO SCH (08:09)
[2020-02-13] MEDS: FUROSEMIDE 20 MG TABLET PO SCH (08:09)
[2020-02-13] MEDS: MUPIROCIN 2% OINT 22GM TUBE TOP SCH (08:10)
[2020-02-13] MEDS: MEDIHONEY 44 ML TOPICAL TUBE TOP SCH (08:10)
[2020-02-13] MEDS: GLIPIZIDE S.A. 5 MG TAB PO SCH ×2 (08:10→17:07)
[2020-02-13] MEDS: PROMOD 30 ML DOSE PO SCH ×2 (08:11→19:42)
[2020-02-13] MEDS: INSULIN GLARGINE 100 UNITS/ML SQ SCH ×2 (09:21→20:28)
[2020-02-13] MEDS: ACETAMINOPHEN 325 MG TABLET PO PRN ×2 (09:35→19:40)
[2020-02-13] MEDS: MELATONIN 3 MG TABLET PO SCH (20:28)
[2020-02-13] MEDS: TRAMADOL HCL 50 MG TAB PO SCH (20:28)
[2020-02-13] MEDS: ATORVASTATIN 20 MG TAB PO SCH (20:28)
[2020-02-13] MEDS: TRAZODONE 50 MG TABLET PO PRN (20:28)
[2020-02-14] MEDS: carvediloL 3.125 MG TAB PO SCH ×2 (05:07→17:03)
[2020-02-14] MEDS: PANTOPRAZOLE 40MG TABLET PO SCH (07:09)
[2020-02-14] MEDS: INSULIN -REGULAR HUMAN 50 UNIT/0.5 ML ML SQ SCH ×4 (07:30→21:00)
[2020-02-14] MEDS: MUPIROCIN 2% OINT 22GM TUBE TOP SCH (08:00)
[2020-02-14] MEDS: SODIUM CHLORIDE 0.9% 10ML INJ IV SCH ×2 (08:00→20:00)
[2020-02-14] MEDS: PROMOD 30 ML DOSE PO SCH ×2 (08:00→21:41)
[2020-02-14] MEDS: FE SULF/FA/VIT B COMP & C TAB PO SCH (08:00)
[2020-02-14] MEDS: MEDIHONEY 44 ML TOPICAL TUBE TOP SCH (08:00)
[2020-02-14] MEDS: CRANBERRY FRUIT EXTRACT 200 MG CAP PO SCH ×2 (09:03→21:39)
[2020-02-14] MEDS: SMZ./TMP. 800/160 MG TABLET PO SCH ×2 (09:03→21:40)
[2020-02-14] MEDS: APIXABAN 2.5 MG TABLET PO SCH ×2 (09:04→21:39)
[2020-02-14] MEDS: TAMSULOSIN 0.4 MG SR CAP PO SCH ×2 (09:04→21:39)
[2020-02-14] MEDS: METFORMIN HCL 500 MG TAB PO SCH (09:04)
[2020-02-14] MEDS: FINASTERIDE 5 MG TAB PO SCH (09:04)
[2020-02-14] MEDS: FUROSEMIDE 20 MG TABLET PO SCH (09:05)
[2020-02-14] MEDS: CLOPIDOGREL 75 MG TABLET PO SCH (09:05)
[2020-02-14] MEDS: POTASSIUM CL SA 10 MEQ TAB PO SCH (09:05)
[2020-02-14] MEDS: GLIPIZIDE S.A. 5 MG TAB PO SCH ×2 (09:06→17:03)
[2020-02-14] MEDS: FERROUS SULFATE 325 MG TAB PO SCH (09:06)
[2020-02-14] MEDS: gemfibroziL 600 MG TAB PO SCH ×2 (09:06→21:40)
[2020-02-14] MEDS: INSULIN GLARGINE 100 UNITS/ML SQ SCH ×2 (09:07→21:41)
[2020-02-14] MEDS: MELATONIN 3 MG TABLET PO SCH (21:00)
[2020-02-14] MEDS: ATORVASTATIN 20 MG TAB PO SCH (21:40)
[2020-02-14] MEDS: TRAMADOL HCL 50 MG TAB PO SCH (21:40)
[2020-02-15] MEDS: PANTOPRAZOLE 40MG TABLET PO SCH (05:27)
[2020-02-15] MEDS: carvediloL 3.125 MG TAB PO SCH ×2 (05:27→16:53)
[2020-02-15 06:00] LABS: Absolute Lymphocytes (CBC) 1.5 K/uL (0.7-4.9); Basophils % 1.3 % (0-1.3); Hematocrit 29.9 % (39.6-49.0); Lymphocytes % 22.7 % (15.3-44.8); MPV 6.9 fL (7.6-11.3); RBC Red Blood Cell Count 3.43 M/uL (4.33-5.43)
[2020-02-15 06:14] LABS: Potassium 4.3 mmol/L (3.5-5.1)
[2020-02-15] MEDS: INSULIN -REGULAR HUMAN 50 UNIT/0.5 ML ML SQ SCH ×4 (07:30→20:17)
[2020-02-15] MEDS: MUPIROCIN 2% OINT 22GM TUBE TOP SCH (08:00)
[2020-02-15] MEDS: SODIUM CHLORIDE 0.9% 10ML INJ IV SCH ×2 (08:00→19:42)
[2020-02-15] MEDS: FINASTERIDE 5 MG TAB PO SCH (08:27)
[2020-02-15] MEDS: MEDIHONEY 44 ML TOPICAL TUBE TOP SCH (08:27)
[2020-02-15] MEDS: APIXABAN 2.5 MG TABLET PO SCH ×2 (08:28→19:41)
[2020-02-15] MEDS: FUROSEMIDE 20 MG TABLET PO SCH (08:28)
[2020-02-15] MEDS: CRANBERRY FRUIT EXTRACT 200 MG CAP PO SCH ×2 (08:28→19:41)
[2020-02-15] MEDS: TAMSULOSIN 0.4 MG SR CAP PO SCH ×2 (08:30→19:41)
[2020-02-15] MEDS: FERROUS SULFATE 325 MG TAB PO SCH (08:30)
[2020-02-15] MEDS: SMZ./TMP. 800/160 MG TABLET PO SCH ×2 (08:30→19:41)
[2020-02-15] MEDS: FE SULF/FA/VIT B COMP & C TAB PO SCH (08:30)
[2020-02-15] MEDS: POTASSIUM CL SA 10 MEQ TAB PO SCH (08:30)
[2020-02-15] MEDS: CLOPIDOGREL 75 MG TABLET PO SCH (08:30)
[2020-02-15] MEDS: METFORMIN HCL 500 MG TAB PO SCH (08:30)
[2020-02-15] MEDS: gemfibroziL 600 MG TAB PO SCH ×2 (08:31→19:41)
[2020-02-15] MEDS: GLIPIZIDE S.A. 5 MG TAB PO SCH ×2 (08:31→16:53)
[2020-02-15] MEDS: INSULIN GLARGINE 100 UNITS/ML SQ SCH ×2 (08:32→20:15)
[2020-02-15] MEDS: PROMOD 30 ML DOSE PO SCH ×2 (08:33→19:42)
[2020-02-15] MEDS: ACETAMINOPHEN 325 MG TABLET PO PRN (19:42)
[2020-02-15] MEDS: TRAMADOL HCL 50 MG TAB PO SCH (20:16)
[2020-02-15] MEDS: TRAZODONE 50 MG TABLET PO PRN (20:16)
[2020-02-15] MEDS: ATORVASTATIN 20 MG TAB PO SCH (20:16)
[2020-02-15] MEDS: MELATONIN 3 MG TABLET PO SCH (20:17)
[2020-02-16] MEDS: carvediloL 3.125 MG TAB PO SCH ×2 (05:15→16:36)
[2020-02-16] MEDS: PANTOPRAZOLE 40MG TABLET PO SCH (06:53)
[2020-02-16] MEDS: ACETAMINOPHEN 325 MG TABLET PO PRN ×2 (06:53→21:00)
[2020-02-16] MEDS: SODIUM CHLORIDE 0.9% 10ML INJ IV SCH ×2 (06:54→21:01)
[2020-02-16] MEDS: INSULIN -REGULAR HUMAN 50 UNIT/0.5 ML ML SQ SCH ×4 (07:30→20:21)
[2020-02-16] MEDS: PROMOD 30 ML DOSE PO SCH ×2 (08:00→21:00)
[2020-02-16] MEDS: CRANBERRY FRUIT EXTRACT 200 MG CAP PO SCH ×2 (08:01→21:00)
[2020-02-16] MEDS: APIXABAN 2.5 MG TABLET PO SCH ×2 (08:01→20:57)
[2020-02-16] MEDS: TAMSULOSIN 0.4 MG SR CAP PO SCH ×2 (08:02→20:58)
[2020-02-16] MEDS: gemfibroziL 600 MG TAB PO SCH ×2 (08:02→20:57)
[2020-02-16] MEDS: GLIPIZIDE S.A. 5 MG TAB PO SCH ×2 (08:02→16:36)
[2020-02-16] MEDS: FERROUS SULFATE 325 MG TAB PO SCH (08:02)
[2020-02-16] MEDS: SMZ./TMP. 800/160 MG TABLET PO SCH ×2 (08:02→20:58)
[2020-02-16] MEDS: FINASTERIDE 5 MG TAB PO SCH (08:03)
[2020-02-16] MEDS: POTASSIUM CL SA 10 MEQ TAB PO SCH (08:03)
[2020-02-16] MEDS: METFORMIN HCL 500 MG TAB PO SCH (08:03)
[2020-02-16] MEDS: CLOPIDOGREL 75 MG TABLET PO SCH (08:03)
[2020-02-16] MEDS: FE SULF/FA/VIT B COMP & C TAB PO SCH (08:04)
[2020-02-16] MEDS: FUROSEMIDE 20 MG TABLET PO SCH (08:04)
[2020-02-16] MEDS: INSULIN GLARGINE 100 UNITS/ML SQ SCH ×2 (09:56→21:03)
[2020-02-16] MEDS: MEDIHONEY 44 ML TOPICAL TUBE TOP SCH (10:30)
[2020-02-16] MEDS: MUPIROCIN 2% OINT 22GM TUBE TOP SCH (10:30)
[2020-02-16] MEDS: ATORVASTATIN 20 MG TAB PO SCH (20:57)
[2020-02-16] MEDS: TRAMADOL HCL 50 MG TAB PO SCH (20:58)
[2020-02-16] MEDS: TRAZODONE 50 MG TABLET PO PRN (20:59)
[2020-02-16] MEDS: MELATONIN 3 MG TABLET PO SCH (21:03)
[2020-02-17] MEDS: carvediloL 3.125 MG TAB PO SCH ×2 (05:14→17:09)
[2020-02-17 06:27] LABS: Albumin 2.8 g/dL (3.4-5.0); Prealbumin 18.7 mg/dL (20-40)
[2020-02-17] MEDS: APIXABAN 2.5 MG TABLET PO SCH ×2 (07:21→20:20)
[2020-02-17] MEDS: CRANBERRY FRUIT EXTRACT 200 MG CAP PO SCH ×2 (07:21→20:20)
[2020-02-17] MEDS: PANTOPRAZOLE 40MG TABLET PO SCH (07:21)
[2020-02-17] MEDS: FINASTERIDE 5 MG TAB PO SCH (07:21)
[2020-02-17] MEDS: FERROUS SULFATE 325 MG TAB PO SCH (07:22)
[2020-02-17] MEDS: CLOPIDOGREL 75 MG TABLET PO SCH (07:22)
[2020-02-17] MEDS: POTASSIUM CL SA 10 MEQ TAB PO SCH (07:22)
[2020-02-17] MEDS: METFORMIN HCL 500 MG TAB PO SCH (07:25)
[2020-02-17] MEDS: GLIPIZIDE S.A. 5 MG TAB PO SCH ×2 (07:25→17:07)
[2020-02-17] MEDS: FUROSEMIDE 20 MG TABLET PO SCH (07:25)
[2020-02-17] MEDS: TAMSULOSIN 0.4 MG SR CAP PO SCH ×2 (07:25→20:23)
[2020-02-17] MEDS: SMZ./TMP. 800/160 MG TABLET PO SCH (07:25)
[2020-02-17] MEDS: INSULIN GLARGINE 100 UNITS/ML SQ SCH (07:26)
[2020-02-17] MEDS: FE SULF/FA/VIT B COMP & C TAB PO SCH (07:26)
[2020-02-17] MEDS: INSULIN -REGULAR HUMAN 50 UNIT/0.5 ML ML SQ SCH ×4 (07:26→20:27)
[2020-02-17] MEDS: gemfibroziL 600 MG TAB PO SCH ×2 (07:26→20:20)
[2020-02-17] MEDS: MEDIHONEY 44 ML TOPICAL TUBE TOP SCH (07:27)
[2020-02-17] MEDS: MUPIROCIN 2% OINT 22GM TUBE TOP SCH (08:00)
[2020-02-17] MEDS: PROMOD 30 ML DOSE PO SCH ×2 (08:00→20:24)
[2020-02-17] MEDS: SODIUM CHLORIDE 0.9% 10ML INJ IV SCH ×2 (08:00→20:24)
[2020-02-17] MEDS: MELATONIN 3 MG TABLET PO SCH (20:20)
[2020-02-17] MEDS: TRAMADOL HCL 50 MG TAB PO SCH (20:21)
[2020-02-17] MEDS: TRAZODONE 50 MG TABLET PO PRN (20:22)
[2020-02-17] MEDS: ACETAMINOPHEN 325 MG TABLET PO PRN (20:23)
[2020-02-17] MEDS: ATORVASTATIN 20 MG TAB PO SCH (20:23)
[2020-02-17] MEDS ORDERED: INSULIN GLARGINE 100 UNITS/ML SQ SCH (21:00)
[2020-02-18] MEDS: carvediloL 3.125 MG TAB PO SCH (05:27)
[2020-02-18 05:29] LABS: Absolute Lymphocytes (CBC) 1.7 K/uL (0.7-4.9); Basophils % 1.4 % (0-1.3); Hematocrit 29.6 % (39.6-49.0); Lymphocytes % 31.5 % (15.3-44.8); MPV 6.8 fL (7.6-11.3)
[2020-02-18 05:44] LABS: Potassium 4.2 mmol/L (3.5-5.1)
[2020-02-18] MEDS: ACETAMINOPHEN 325 MG TABLET PO PRN (06:38)
[2020-02-18] MEDS: PANTOPRAZOLE 40MG TABLET PO SCH (06:38)
[2020-02-18] MEDS: INSULIN -REGULAR HUMAN 50 UNIT/0.5 ML ML SQ SCH ×2 (07:00→11:30)
[2020-02-18 07:23] VITALS: BP 114/56; TEMP 97.1
[2020-02-18 08:12] VITALS: O2SAT 98
[2020-02-18] MEDS: FINASTERIDE 5 MG TAB PO SCH (08:22)
[2020-02-18] MEDS: CRANBERRY FRUIT EXTRACT 200 MG CAP PO SCH (08:22)
[2020-02-18] MEDS: MUPIROCIN 2% OINT 22GM TUBE TOP SCH (08:22)
[2020-02-18] MEDS: GLIPIZIDE S.A. 5 MG TAB PO SCH (08:22)
[2020-02-18] MEDS: METFORMIN HCL 500 MG TAB PO SCH (08:22)
[2020-02-18] MEDS: gemfibroziL 600 MG TAB PO SCH (08:22)
[2020-02-18] MEDS: APIXABAN 2.5 MG TABLET PO SCH (08:22)
[2020-02-18] MEDS: FERROUS SULFATE 325 MG TAB PO SCH (08:23)
[2020-02-18] MEDS: FUROSEMIDE 20 MG TABLET PO SCH (08:23)
[2020-02-18] MEDS: CLOPIDOGREL 75 MG TABLET PO SCH (08:23)
[2020-02-18] MEDS: POTASSIUM CL SA 10 MEQ TAB PO SCH (08:23)
[2020-02-18] MEDS: FE SULF/FA/VIT B COMP & C TAB PO SCH (08:23)
[2020-02-18] MEDS: MEDIHONEY 44 ML TOPICAL TUBE TOP SCH (08:23)
[2020-02-18] MEDS: TAMSULOSIN 0.4 MG SR CAP PO SCH (08:23)
[2020-02-18] MEDS: SODIUM CHLORIDE 0.9% 10ML INJ IV SCH (08:24)
[2020-02-18] MEDS: PROMOD 30 ML DOSE PO SCH (08:24)
[2020-02-18] MEDS: INSULIN GLARGINE 100 UNITS/ML SQ SCH (08:30)
--- NOTE | 2020-02-18 09:33 | P.RH.PN ---
Estimated Length of Stay: 28 Expected Discharge Date: 02/18/20 Discharge Disposition Plan: Home Family Support: Yes Senior Living Goal: Mobility, Transfers, Self Care Vital Signs: Last Vital Signs Temp 97.1 F 02/18/20 07:22 Pulse 97 H 02/18/20 08:23 Resp 16 02/18/20 07:22 BP 114/56 L 02/18/20 08:23 Pulse Ox 92 02/18/20 07:22 Laboratory: Laboratory Last Values WBC 5.3 K/uL (4.3-10.9) D 02/18/20 05:18 RBC 3.40 M/uL (4.33-5.43) L 02/18/20 05:18 Hgb 9.6 g/dL (13.6-17.9) L 02/18/20 05:18 Hct 29.6 % (39.6-49.0) L 02/18/20 05:18 MCV 87.2 fL (80-100) 02/18/20 05:18 MCH 28.2 pg (27.0-35.0) 02/18/20 05:18 MCHC 32.3 g/dL (32.0-36.0) 02/18/20 05:18 RDW 17.3 % (12.1-15.2) H 02/18/20 05:18 Plt Count 438 K/uL (152-406) H 02/18/20 05:18 MPV 6.8 fL (7.6-11.3) L 02/18/20 05:18 Neutrophils % 53.2 % (41.7-73.7) 02/18/20 05:18 Lymphocytes % 31.5 % (15.3-44.8) 02/18/20 05:18 Monocytes % 8.8 % (3.3-12.3) 02/18/20 05:18 Eosinophils % 5.1 % (0-4.4) H 02/18/20 05:18 Basophils % 1.4 % (0-1.3) H 02/18/20 05:18 Absolute Neutrophils 2.8 K/uL (1.8-8.0) 02/18/20 05:18 Absolute Lymphocytes 1.7 K/uL (0.7-4.9) 02/18/20 05:18 Absolute Monocytes 0.5 K/uL (0.1-1.3) 02/18/20 05:18 Absolute Eosinophils 0.3 K/uL (0-0.5) 02/18/20 05:18 Absolute Basophils 0.1 K/uL (0-0.5) 02/18/20 05:18 Sodium 140 mmol/L (136-145) 02/18/20 05:18 Potassium 4.2 mmol/L (3.5-5.1) 02/18/20 05:18 Chloride 107 mmol/L (98-107) 02/18/20 05:18 Carbon Dioxide 28 mmol/L (21-32) 02/18/20 05:18 BUN 30 mg/dL (7-18) H 02/18/20 05:18 Creatinine 1.37 mg/dL (0.55-1.3) H 02/18/20 05:18 Estimated GFR 51 mL/min (=/>90) L 02/18/20 05:18 Glucose 55 mg/dL (74-106) L 02/18/20 05:18 POC Glucose 150 mg/dl (65-120) H 02/18/20 08:33 Calcium 8.9 mg/dL (8.5-10.1) 02/18/20 05:18 Magnesium 2.0 mg/dL (1.8-2.4) 02/10/20 05:21 Albumin 2.8 g/dL (3.4-5.0) L 02/17/20 05:45 Prealbumin 18.7 mg/dL (20-40) L 02/17/20 05:45 Weight: 233 lb 1.6 oz Wound Present: Yes Closed Surgical Incision Present: Yes Negative Pressure Wound Therapy Present: No Physician Update: Labs reviewed are stable. He will go home with O2 and a wheelchair. He has [facility] for cardiac rehab. He will be discharged today. Functional Improvement: Patient has met all short-term and long-term goals at this time. Patient presents w/ good overal safety awareness. Summary: Patient's care plan and intermission coordinator goals have been reviewed and revised as necessary. Please see the Rehabilitation Signature page for all necessary signatures.
== END 2020-02-18 15:40 | disposition home health service (06) | DRG 303 ==
LOC: UNDOADMIN 23:20 → 5TH 23:20 → UNDODISIN 02-18 15:40
PROVIDERS: ADMIT Psychiatry & Neurology Neurology with Special Qualifications in Child Neurology; ATTEND Psychiatry & Neurology Neurology with Special Qualifications in Child Neurology
DX: I25.10 Atherosclerotic heart disease of native coronary artery without angina pectoris (principal); Z88.1 Allergy status to other antibiotic agents; Z88.0 Allergy status to penicillin; Z60.2 Problems related to living alone
CPT/HCPCS: 36415; 80048; 82040; 82947; 83735; 84134; 85025; 97110; 97112; 97116; 97161; 97530; 97542; J1815

== ENCOUNTER 2020-03-04 19:44 | Emergency (ER) | payer OTHER, MEDICARE ==
--- OUTSIDE RECORDS SUMMARY | 2020-03-04 19:46 | XMS REPORT ---
:[address] [facility] t Address [address] [place] [address] Dr. Bell [address] [place] [id number] Care Team Providers Name Role Phone Unavailable Unavailable Unavailable Problems This patient has no known problems. Allergies, Adverse Reactions, Alerts This patient has no known allergies or adverse reactions. Medications This patient has no known medications.
--- OUTSIDE RECORDS SUMMARY | 2020-03-04 19:54 | XMS REPORT | Summary of Care ---
:1945 Author Organization [facility] Address [address] [place] [id number] Care Team Providers Name Role Phone Franklyn Garay Primary Care Provider Encounter Details Date Type Department Care Team Description 02/25/2020 Orders Only [facility] Doctor Unassigned, No [address] [facility] [place] [address] [address] [place] [address] Allergies Active Allergy Reactions Severity Noted Date Comments Ciprofloxacin Rash 09/17/2019 Penicillins Rash 09/17/2019 documented as of this encounter (statuses as of 03/01/2020) Medications Medication Sig Dispensed Refills Start Date [...] daily with without complication, meals. 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 artery disease involving coronary bypass graft of [place] heart with angina pectoris carvediloL 6.25 mg Take 1 tablet by 60 tablet 0 01/19/2020 Active tabletIndications: Coronary mouth 2 (two) artery disease involving times daily with coronary bypass graft of meals. [place] heart with angina pectoris insulin glargine 100 unit/mL inject 40 Units 10 mL 1 01/18 Active injectionIndications: under the skin 2 Coronary artery disease (two) times involving coronary bypass daily. graft of [place] heart with angina pectoris acetaminophen 325 mg Take 2 tablets by 60 tablet 0 01/19/2020 Active tabletIndications: Coronary mouth every 6 1 artery disease involving (six) hours as coronary bypass graft of needed for Pain [place] heart with angina (scale 1-3). pectoris clopidogreL 75 mg Take 1 tablet by 90 tablet 0 01/20/2020 Active tabletIndications: Coronary mouth daily. artery disease involving coronary bypass graft of [place] heart with angina pectoris fenofibrate micronized 134 Take 1 capsule by 30 capsule 0 01/01 Active mg capsuleIndications: mouth daily. Coronary artery disease involving coronary bypass graft of [place] heart with angina pectoris furosemide 40 mg Take 1 tablet by 60 tablet 0 01/19/2020 Active tabletIndications: Coronary mouth every artery disease involving morning and coronary bypass graft of evening. [place] heart with angina pectoris nystatin 100,000 unit/gram Apply to area(s) 15 g 0 01/18 Active ointmentIndications: 2 (two) times Coronary artery disease daily. involving coronary bypass graft of [place] heart with angina pectoris insulin regular human Soln inject under the 0 01/18 Active injection skin before meals and at bedtime. documented as of this encounter (statuses as of 03/01/2020) Active Problems Problem Noted Date Acute on chronic diastolic congestive heart failure Morbid obesity 01/13/2020 S/P AVR 01/12/2020 S/P CABG (coronary artery bypass graft) 01/12/2020 Nonrheumatic aortic valve stenosis 01/12/2020 Dyslipidemia 01/12/2020 Essential hypertension 01/12/2020 Other emphysema 01/12/2020 CAD (coronary artery disease) 01/10/2020 Coronary arteriosclerosis in [place] artery 01/05/2020 documented as of this encounter (statuses as of 03/01/2020) Immunizations Name Administration Dates Next Due Influenza High Dose 08/03/2019 documented as of this encounter Social History Tobacco Use Types Packs/Day Years Used Date Former Smoker Cigarettes 41 Quit: 11/03/19 02 Smokeless Tobacco: Never Used Sex Assigned at Date Recorded Not on file Job Start Date Occupation Industry Not on file Not on file Not on file Travel History Travel Start Travel End No recent travel history available. documented as of this encounter Last Filed Vital Signs Not on filedocumented in this encounter Plan of Treatment Date Type Specialty Care Team Description 04/18/2020 Office Visit Cardiology Chary Martinez M D [address] [place] [address] 15 [phone] Health Maintenance Due Date Last Done Comments [...] of this encounter Implants Implanted Type Area Body Mechanic Device Shelf Model / Identifier Expiration Serial / Date Lot Kaitlin Reed Pericardial Bioprosthesis - A ortic Valve 25mm [employer] Ref#[id number] - [id number] VALVE N/A: Heart Marks Life 08/21/2023 [id number] / Implanted: Qty: 1 on 01/11/2020 by Vazquez Lopez MD at [facility] ([facility]) Science [id number] / [id number] Wire WIRE Upper: Mandible Ptfe De Graff 2.5cmx15.2cm Bard Ref#[id number] - [id number] N/A: Heart Bard [id number] / Implanted: Qty: 1 on 01/11/2020 by Vazquez Lopez MD at [facility] ([facility]) 0 / 0 documented as of this encounter Procedures Procedure Name Priority Date/Time Associated Diagnosis Comme nts HOME HEALTH - OTHER Routine 02/25/2020 12:01 AM CDT documented in this encounter Results Not on filedocumented in this encounter Insurance Payer Benefit Plan / Subscriber ID Effective Phone Address T e Group Dates MEDICARE MEDICARE PART xxxxxxxxxxx 2011-Pr [phone] P. O. KRYSTYNA Patrick edicare A & B esent [phone] [place]O [place]RIQUEZ [phone] [facility] [id number] 2018-Pre P. O. KRYSTYNA [facility] sent [id number] Supplement MEDICARE [place] SUPPLEMENT DEO MALAGON [id number] documented as of this encounter
--- OUTSIDE RECORDS SUMMARY | 2020-03-04 19:54 | XMS REPORT | Summary of Care ---
:1945 Author Organization [facility] Address [address] [place] [id number] Care Team Providers Name Role Phone Franklyn Garay Primary Care Provider Reason for Visit Reason Comments Follow-up Encounter Details Date Type Department Care Team Description 02/22/2020 Telemedicine Visit [facility] Juan, Chary, Coronar y artery disease involving [place] coronary artery of [place] heart without angina pectoris (Primary Dx); Cardiology- MD Chronic heart failure with preserved eje ction fraction; [address] Essential hypertension; [address] Nonrheumatic aortic valve stenosis; Drive, [address] Morbid obesity; [place], [place] S/P AVR; [id number] Dyslipidemia [phone] Allergies Active Allergy Reactions Severity Noted Date Comments Ciprofloxacin Rash 09/17/2019 Penicillins Rash 09/17/2019 documented as of this encounter (statuses as of 02/22/2020) Medications Medication Sig Dispensed Refills Start Date [...] daily with without complication, meals. unspecified whether custodial insulin use, Coronary arteriosclerosis in [place] artery Additional information Patient taking differently: 1,000 mg Oral BID MEALS, Reported on 01/07/2020 11:27 AM atorvastatin 20 mg Take 1 tablet 30 tablet 0 01/19/2020 Active tabletIndications: by mouth at Coronary artery disease bedtime. involving coronary bypass graft of [place] heart with angina pectoris carvediloL 6.25 mg Take 1 tablet 60 tablet 0 01/19/2020 Active tabletIndications: by mouth 2 Coronary artery disease (two) times involving coronary bypass daily with graft of [place] heart with meals. angina pectoris insulin glargine 100 inject 40 Units 10 mL 1 01/19/2020 Active unit/mL under the skin injectionIndications: 2 (two) times Coronary artery disease daily. involving coronary bypass graft of [place] heart with angina pectoris acetaminophen 325 mg Take 2 tablets 60 tablet 0 01/19/202021/12 Active tabletIndications: by mouth every 021 Coronary artery disease 6 (six) hours involving coronary bypass as needed for graft of [place] heart with Pain (scale angina pectoris 1-3). clopidogreL 75 mg Take 1 tablet 90 tablet 0 01/20/2020 Active tabletIndications: by mouth daily. Coronary artery disease involving coronary bypass graft of [place] heart with angina pectoris fenofibrate micronized 134 Take 1 capsule 30 capsule 0 020 Active mg capsuleIndications: by mouth daily. Coronary artery disease involving coronary bypass graft of [place] heart with angina pectoris furosemide 40 mg Take 1 tablet 60 tablet 0 01/19/2020 Active tabletIndications: by mouth every Coronary artery disease morning and involving coronary bypass evening. graft of [place] heart with angina pectoris nystatin 100,000 unit/gram Apply to 15 g 0 01/19/2020 Active ointmentIndications: area(s) 2 (two) Coronary artery disease times daily. involving coronary bypass graft of [place] heart with angina pectoris insulin regular human Soln inject under 0 0 Active injection the skin before meals and at bedtime. lisinopril 20 mg Take 1 tablet 30 tablet 0 01/19/2020 Discontinued tabletIndications: by mouth daily. 020 Coronary artery disease involving coronary bypass graft of [place] heart with angina pectoris documented as of this encounter (statuses as of 02/22/2020) Active Problems Problem Noted Date Acute on chronic diastolic congestive heart failure Morbid obesity 01/13/2020 S/P AVR 01/12/2020 S/P CABG (coronary artery bypass graft) 01/12/2020 Nonrheumatic aortic valve stenosis 01/12/2020 Dyslipidemia 01/12/2020 Essential hypertension 01/12/2020 Other emphysema 01/12/2020 CAD (coronary artery disease) 01/10/2020 Coronary arteriosclerosis in [place] artery 01/05/2020 documented as of this encounter (statuses as of 02/22/2020) Immunizations Name Administration Dates Next Due Influenza [...] Signs Not on filedocumented in this encounter Progress Notes Chary Martinez MD - 02/22/2020 11:40 AM CDT CARDIOLOGY CLINIC NOTE 02/22/2020 Reason for Referral/Presenting Complaint: CAD, s/p AVR, HF PCP: Franklyn Garay History of Present Illness: [...] His BP has been elevated. LDL 18. He underwent LHC on 01/05/2020 and was found to have LM/LAD/RI/RCA disease. Underwent CABG and bioprosthetic AVR in 01/2020 (left internal mammary artery to left descending artery, reverse saphenous vein graft to distal right coronary artery, reverse saphenous vein graft to ramus intermedius, and high diagonal artery in a Y-graft configuration. 4. Aortic valve replacement using 23 mm Marks Magna Ease bioprosthetic valve." Now he is home for a week. No chest pain. Mild WOLFE. No edema. Lost 20 lbs. On lasix. [facility] 01/2020 Coronary dominance: right Left main: Large, ostial [...] RI branch disease 4. Moderate mRCA disease 01/2020 OPERATION: 1. Median sternotomy. 2. Total cardiopulmonary bypass. 3. Coronary artery bypass grafting x4, left internal mammary artery to left descending artery, reverse saphenous vein graft to distal right coronary artery, reverse saphenous vein graft to ramus intermedius, and high diagonal artery in a Y-graft configuration. 4. Aortic valve replacement using 23 mm Marks Magna Ease bioprosthetic valve. Cardiovascular testing: EKG: Normal sinus rhythm. Normal EKG. Echocardiogram: There is mild concentric left ventricular hypertrophy. Ejection Fraction = 55-60%. Diastolic function is impaired relaxation. The left [...] Medical History: Past Medical History: Diagnosis Date Acute on chronic diastolic congestive heart failure 01/14/2020 Cancer Diabetes mellitus Hypertension Current Medications: Current Outpatient Medications Medication Sig Dispense Refill acetaminophen 325 mg tablet Take 2 tablets by mouth every 6 (six) hours as needed for Pain (scale 1-3). 60 tablet 0 atorvastatin 20 mg tablet Take 1 tablet by mouth at bedtime. 30 tablet 0 carvediloL 6.25 mg tablet Take 1 tablet by mouth 2 (two) times daily with meals. 60 tablet 0 clopidogreL 75 mg tablet Take 1 tablet by mouth daily. 90 tablet 0 fenofibrate micronized 134 mg capsule Take 1 capsule by mouth daily. 30 capsule 0 furosemide 40 mg tablet Take 1 tablet by mouth every morning and evening. 60 tablet 0 insulin glargine 100 unit/mL injection inject 40 Units under the skin 2 (two) times daily. 10 mL1 insulin regular human Soln injection inject under the skin before meals and at bedtime. nystatin 100,000 unit/gram ointment Apply to area(s) 2 (two) times daily. 15 g 0 metFORMIN 500 mg tablet Take 1 tablet by mouth 2 (two) times daily with meals. (Patient taking differently: Take 1,000 mg by mouth 2 (two) times daily with meals.) 60 tablet 0 aspirin 81 mg EC tablet Take 1 tablet by mouth daily. finasteride 5 mg tablet [...] mg by mouth 2 (two) times daily. No current facility-administered medications for this visit. [...] Last attempt to quit: 11/03/2001 Years since quittin.3 Smokeless tobacco: Never Used Substance and Sexual Activity Alcohol use: Not on file Drug use: Not on file Sexual activity: Not on file Lifestyle Physical activity: Days per week: Not on file Minutes per session: Not on file Stress: Not on file Relationships Social connections: Talks on phone: Not on file Gets together: Not on file Attends congregation service: Not on file Active member of [...] Family History Problem Relation Age of Onset [place] (myocardial infarction) Mother 60s Physical Examination: Constitutional: Alert and in no distress Respiratory: Breathing comfortably Neurology: Answers questions appropriately Assessment/Plan: ICD-10-CM ICD-9-CM 1. Coronary artery disease involving [place] coronary artery of [place] heart without angina pectoris I25.10 414.01 2. Chronic heart failure with preserved ejection fraction I50.32 428.9 3. Essential hypertension I10 401.9 4. Nonrheumatic aortic valve stenosis I35.0 424.1 5. Morbid obesity E66.01 278.01 6. S/P AVR Z95.2 V43.3 7. Dyslipidemia E78.5 272.4 CAD--s/p CABG. Continue ASA/plavix/lipitor/metoprolol. After COVID will start cardiac rehab. Moderate aortic stenosis--s/p bioprosthetic AVR. After COVID will get ECHO to establish baseline. HFpEF--on lasix. Volume status is good. HTN--controlled. Continue coreg. Obesity--discussed weight loss. HLD--On lipitor and fenofibrate. Patient was counseled for lifestyle modifications including: diet, exercise and weight loss. RTC 3 months Telehealth service ? Verbal consent obtained from patient Abdirashid Damon for telehealth sevice provided ? My location: [facility] cardi[facility] clinic ? Patient location: Home ? Format: Communication with patient was conducted via [employer] video call. ? A total of 40 minutes spent on the video call with the patient/chart review/documentation Chary Martinez MD, [facility], LULI Donor Center Technician, Division of Cardiology [facility] documented in this encounter Plan of Treatment Date Type Specialty Care Team Description 02/25/2020 Telemedicine Visit Thoracic Surgery Reuben Wen MD [address] [place] [address] [phone] 04/18/2020 Office Visit Cardiology Chary Martinez M D [address] [place] [address] 775 15 [phone] Health Maintenance Due Date Last Done Comments [...] of this encounter Implants Implanted Type Area Contract Clerk Device Shelf Model / Identifier Expiration Serial / Date Lot Kaitlin Ease Pericardial Bioprosthesis - A ortic Valve 25mm [employer] Ref#[id number] - [id number] VALVE N/A: Heart Marks Life 08/21/2023 [id number] / Implanted: Qty: 1 on 01/11/2020 by Vazquez Lopez MD at [facility] ([facility]) Science [id number] / [id number] Wire WIRE Upper: Mandible Ptfe [place] 2.5cmx15.2cm Bard Ref#[id number] - S0 N/A: Heart Bard [id number] / Implanted: Qty: 1 on 01/11/2020 by Vazquez Lopez MD at [facility] ([facility]) 0 / 0 documented as of this encounter Results Not on filedocumented in this encounter Visit Diagnoses Diagnosis Coronary artery disease involving [place] coronary artery of [place] heart without angina pectoris - Primary Chronic heart failure with preserved eje ction fraction Essential hypertension Unspecified essential hypertension Nonrheumatic aortic valve stenosis Aortic valve disorders Morbid obesity S/P AVR Heart valve replaced by other means Dyslipidemia Other and unspecified hyperlipidemia documented in this encounter Insurance Payer Benefit Plan / Subscriber ID Effective Phone Address T ype Group Dates MEDICARE MEDICARE PART xxxxxxxxxxx 2011-Pr [phone] [address] edicare A & B esent [id number] DEO [place]QUE[place] [id number] [facility] [id number] 2018-Pre [address] [facility] sent [phone] Supplement MEDICARE [place] SUPPLEMENT DEO [place]ON [id number] documented as of this encounter
--- OUTSIDE RECORDS SUMMARY | 2020-03-04 19:55 | XMS REPORT | Summary of Care ---
:[address] [facility] Address [address] [place] [address] Care Team Providers Name Role Phone Franklyn Garay Primary Care Provider Reason for Visit Reason Comments Appointment thoracic surgery hfu Encounter Details Date Type Department Care Team Description 02/15/2020 Telephone [facility] Thoracic Unknown, Attending A ppointment (thoracic Surgery- [place] [facility] ) [address] [place] [address] e [address] [place] [address] Allergies Active Allergy Reactions Severity Noted Date [...] daily with without complication, meals. unspecified whether long term care phlebotomist insulin use, Coronary arteriosclerosis in [place] artery Additional information Patient taking differently: 1,000 mg Oral BID MEALS, Reported on 01/07/2020 11:27 AM atorvastatin 20 mg Take 1 tablet by 30 tablet 0 01/19/2020 Active tabletIndications: Coronary mouth at bedtime. artery disease involving coronary bypass graft of [place] heart with angina pectoris carvediloL 6.25 mg Take 1 tablet by 60 tablet 0 01/19/2020 Active tabletIndications: Coronary mouth 2 (two) artery disease involving times daily with coronary bypass graft of meals. [place] heart with angina pectoris insulin glargine 100 unit/mL inject 40 Units 10 mL 1 01/18 Active injectionIndications: under the skin 2 Coronary artery disease (two) times involving coronary bypass daily. graft of [place] heart with angina pectoris acetaminophen 325 mg Take 2 tablets by 60 tablet 0 01/19/2020 Active tabletIndications: Coronary mouth every 6 1 artery disease involving (six) hours as coronary bypass graft of needed for Pain [place] heart with angina (scale 1-3). pectoris clopidogreL 75 mg Take 1 tablet by 90 tablet 0 01/20/2020 Active tabletIndications: Coronary mouth daily. artery disease involving coronary bypass graft of [place] heart with angina pectoris fenofibrate micronized 134 Take 1 capsule by 30 capsule 0 01/01 Active mg capsuleIndications: mouth daily. Coronary artery disease involving coronary bypass graft of [place] heart with angina pectoris furosemide 40 mg Take 1 tablet by 60 tablet 0 01/19/2020 Active tabletIndications: Coronary mouth every artery disease involving morning and coronary bypass graft of evening. [place] heart with angina pectoris nystatin 100,000 unit/gram Apply to area(s) 15 g 0 01/18 Active ointmentIndications: 2 (two) times Coronary artery disease daily. involving coronary bypass graft of [place] heart with angina pectoris insulin regular human [...] (coronary artery disease) 01/10/2020 Coronary arteriosclerosis in [place] artery 01/05/2020 documented as of this encounter [...] Office Visit Cardiology Chary Martinez M D [address] [place] [address] 15 [phone] Health Maintenance Due Date Last Done Comments [...] of this encounter Implants Implanted Type Area Senior Qa Engineer Device Shelf Model / Identifier Expiration Serial / Date Lot Magna Ease Pericardial Bioprosthesis - A ortic Valve 25mm [employer] Sciences Ref#[id number] - [id number] VALVE N/A: Heart Marks Life 08/21/2023 [id number] / Implanted: Qty: 1 on 01/11/2020 by Vazquez Lopez MD at [facility] ([facility]) Science [id number] / [id number] Wire WIRE Upper: Mandible Ptfe [place] 2.5cmx15.2cm Bard Ref#[id number] - S0 N/A: Heart Bard [id number] / Implanted: Qty: 1 on 01/11/2020 by Vazquez Lopez MD at [facility] ([facility]) 0 / 0 documented as of this encounter Results Not on filedocumented in this encounter Insurance Payer Benefit Plan / Subscriber ID Effective Phone Address T e Group Dates MEDICARE MEDICARE PART xxxxxxxxxxx 2011-Pr [phone] [address] rub[address] A [employer] esent [id number] DEO [place]QUE[place] [phone] [facility] [id number] 2018-Pre [address] [facility] sent [phone] Supplement MEDICARE [place] SUPPLEMENT DEO MALAGON [id number] documented as of this encounter
--- OUTSIDE RECORDS SUMMARY | 2020-03-04 19:55 | XMS REPORT | Summary of Care ---
:1945 Author Organization [facility] Address [address] [place] [address] Care Team Providers Name Role Phone Franklyn Garay Primary Care Provider Reason for Visit Reason Comments Appointment thoracic surgery hfu Encounter Details Date Type Department Care Team Description 02/15/2020 Telephone [facility] Thoracic Unknown, Attending A ppointment (thoracic Surgery- [place] [facility] ) [address] [place] [address] e [address] [place] [address] Allergies Active Allergy Reactions Severity [...] daily with without complication, meals. unspecified whether meterman insulin use, Coronary arteriosclerosis in [place] artery Additional information Patient taking differently: 1,000 mg Oral BID MEALS, Reported on 01/07/2020 11:27 AM atorvastatin 20 mg Take 1 tablet by 30 tablet 0 01/19/2020 Active tabletIndications: Coronary mouth at bedtime. artery disease involving coronary bypass graft of [place] heart with angina pectoris carvediloL 6.25 mg Take 1 tablet by 60 tablet 0 01/19/2020 Active tabletIndications: Coronary mouth 2 (two) artery disease involving times daily with coronary bypass graft of meals. [place] heart with angina pectoris insulin glargine 100 unit/mL inject 40 Units 10 mL 1 01/18 Active injectionIndications: under the skin 2 Coronary artery disease (two) times involving coronary bypass daily. graft of [place] heart with angina pectoris acetaminophen 325 mg Take 2 tablets by 60 tablet 0 01/19/2020 Active tabletIndications: Coronary mouth every 6 1 artery disease involving (six) hours as coronary bypass graft of needed for Pain [place] heart with angina (scale 1-3). pectoris clopidogreL 75 mg Take 1 tablet by 90 tablet 0 01/20/2020 Active tabletIndications: Coronary mouth daily. artery disease involving coronary bypass graft of [place] heart with angina pectoris fenofibrate micronized 134 Take 1 capsule by 30 capsule 0 01/01 Active mg capsuleIndications: mouth daily. Coronary artery disease involving coronary bypass graft of [place] heart with angina pectoris furosemide 40 mg Take 1 tablet by 60 tablet 0 01/19/2020 Active tabletIndications: Coronary mouth every artery disease involving morning and coronary bypass graft of evening. [place] heart with angina pectoris nystatin 100,000 unit/gram Apply to area(s) 15 g 0 01/18 Active ointmentIndications: 2 (two) times Coronary artery disease daily. involving coronary bypass graft of [place] heart with angina pectoris insulin regular human [...] (coronary artery disease) 01/10/2020 Coronary arteriosclerosis in [place] artery 01/05/2020 documented as of this encounter [...] Office Visit Cardiology Chary Martinez M D [address] [place] [address] 15 [phone] Health Maintenance Due Date Last Done Comments [...] of this encounter Implants Implanted Type Area Manager Center Device Shelf Model / Identifier Expiration Serial / Date Lot Magna Ease Pericardial Bioprosthesis - A ortic Valve 25mm [employer] Ref#[id number] - [id number] VALVE N/A: Heart Marks Life 08/21/2023 [id number] / Implanted: Qty: 1 on 01/11/2020 by Vazquez Lopez MD at [facility] ([facility]) Science [id number] / [id number] Wire WIRE Upper: Mandible Ptfe [place] 2.5cmx15.2cm Bard Ref#[id number] - S0 N/A: Heart Bard [id number] / Implanted: Qty: 1 on 01/11/2020 by Vazquez Lopez MD at [facility] ([facility]) 0 / 0 documented as of this encounter Results Not on filedocumented in this encounter Insurance Payer Benefit Plan / Subscriber ID Effective Phone Address T e Group Dates MEDICARE MEDICARE PART xxxxxxxxxxx 2011-Pr [phone] [address] rubio [employer] esent [id number] [place] [id number] [facility] [id number] 2018-Pre [address] [facility] sent [phone] Supplement MEDICARE [place] SUPPLEMENT DEO MALAGON [id number] documented as of this encounter
[2020-03-04] MEDS ORDERED: AZITHROMYCIN 500 MG INJ IVPB ONE (21:38)
[2020-03-04] MEDS ORDERED: CEFTRIAXONE/SWI 1gm 1 GM/10 ML SYR ONE (21:38)
[2020-03-04] MEDS ORDERED: NA CHLORIDE 0.9% 250 ML ONE (21:38)
[2020-03-04] MEDS ORDERED: NA CHLORIDE 0.9% 500 ML ONE (21:38)
[2020-03-04 22:54] LABS: Absolute Lymphocytes (CBC) 1.7 K/uL (0.7-4.9); Hematocrit 28.8 % (39.6-49.0); Lymphocytes % 22.4 % (15.3-44.8); MPV 7.7 fL (7.6-11.3); RBC Red Blood Cell Count 3.34 M/uL (4.33-5.43)
[2020-03-04 23:11] LABS: Urine Blood 1+ (NEG); Urine Glucose NEGATIVE (NEG); Urine Protein 2+ (NEG); Urine pH 5.5 (5.0-7.0)
[2020-03-04 23:37] LABS: Albumin 2.6 g/dL (3.4-5.0); Bilirubin Total 0.5 mg/dL (0.2-1.0); Potassium 3.3 mmol/L (3.5-5.1); Protein, Total 7.5 g/dL (6.4-8.2)
[2020-03-05] MEDS ORDERED: D50W 25 GM/50 ML SYRINGE/VIAL IV ONE (00:13)
--- NOTE | 2020-03-05 00:34 | ER ---
Nurse's Notes [facility] Name: Abdirashid Damon Age: 74 yrs Sex: Male : 1945 Arrival Date: 03/04/2020 Time: 19:47 Bed 16 Private MD: Diagnosis: Fever, unspecified;Acute upper respiratory infection, unspecified;Urinary tract infection, site not specified;Type 1 diabetes mellitus;Hypoglycemia, unspecified;Hypokalemia;Pleural effusion in conditions classified elsewhere-small left Presentation: 03/04 19:58 Chief complaint: Patient's son or daughter states: He had heart surgery on the January, then he went to cardiac rehab on the 5th floor for 5 weeks. He has just been home for 2 weeks now. Yesterday, he started having chills. Today, fever started, the highest 100.7F. Tylenol given at 1745. Today, he has SOB more than the usual. He has O2 at 2LPM continuous at home. When he was here at the rehab they tested him for COVID-19 and was NEGATIVE, that was around 3 weeks ago. Denies cough. Coronavirus screen: Patient denies a cough. Patient reports shortness of breath or difficulty breathing. Patient reports a measured and/or subjective temperature greater than 100.4F. Patient denies travel on a cruise ship or to a country the [facility] currently lists as an affected area. Patient denies contact with known and/or suspected case of COVID-19. Ebola Screen: Patient negative for fever greater than or equal to 101.5 degrees Fahrenheit, and additional compatible Ebola Virus Disease symptoms Patient denies exposure to infectious person. Patient denies travel to an Ebola-affected area in the 21 days before illness onset. No symptoms or risks identified at this time. Initial Sepsis Screen: Does the patient meet any 2 criteria? No. Patient's initial sepsis screen is negative. Does the patient have a suspected source of infection? No. Patient's initial sepsis screen is negative. Risk Assessment: Do you want to hurt yourself or someone else? Patient reports no desire to harm self or others. Onset of symptoms was March 04, 2020. 19:58 Method Of Arrival: Wheelchair ca1 19:58 Acuity: HARSHA 3 ca1 20:08 Note Pt states, "I am on ABX for UTI, I am still taking them right now". ca1 Triage Assessment: 21:59 General: Appears in no apparent distress. comfortable, Behavior is calm, cooperative. mg2 21:59 Respiratory: Onset: The symptoms/episode began/occurred gradually. mg2 Historical: - Allergies: 20:07 Ciprofloxacin; ca1 20:07 PENICILLINS; ca1 - PMHx: 20:07 Diabetes - IDDM; Hyperlipidemia; Hypertension; ca1 - PSHx: 20:07 Cholecystectomy; Tonsillectomy; bladder cancer; ca1 - Immunization history:: Adult Immunizations up to date, Pneumococcal vaccine is up to date, Flu vaccine is up to date. - Social history:: Smoking status: Patient denies any tobacco usage or history of. Screenin:00 Abuse screen: Denies threats or abuse. Denies injuries from another. Nutritional mg2 screening: On. Tuberculosis screening: No symptoms or risk factors identified. Fall Risk IV access (20 points). Assessment: 20:11 Reassessment: nhi Warren, . Please call for updates. ca1 21:58 Reassessment: patient sent to [facility] via stretcher. mg2 21:59 General: Appears comfortable. Pain: Denies pain. Neuro: Level of Consciousness is mg2 awake, alert, obeys commands, Oriented to person, place, time, situation. Cardiovascular: Capillary refill < 3 seconds. Respiratory: Airway is patent Respiratory effort is even, unlabored, Respiratory pattern is regular, symmetrical. Respiratory: Reports shortness of breath. GI: No signs and/or symptoms were reported involving the gastrointestinal system. : No signs and/or symptoms were reported regarding the genitourinary system. EENT: No signs and/or symptoms were reported regarding the EENT system. Derm: Skin is intact, is healthy with good turgor, Skin is pink, warm \\T\\ dry. normal. Musculoskeletal: Circulation, motion, and sensation intact. Capillary refill. 21:59 Cardiovascular: Rhythm is regular. Respiratory: Breath sounds are clear. mg2 23:00 Reassessment: Patient appears in no apparent distress at this time. Patient and/or mg2 family updated on plan of care and expected duration. Pain level reassessed. Patient is alert, oriented x 3, equal unlabored respirations, skin warm/dry/pink. /03 00:05 Reassessment: meal given to the patient. mg2 00:23 Reassessment: Patient appears in no apparent distress at this time. Patient and/or mg2 family updated on plan of care and expected duration. Pain level reassessed. Patient is alert, oriented x 3, equal unlabored respirations, skin warm/dry/pink. Vital Signs: 03/04 19:58 BP 110 / 60; Pulse 94; Resp 20 S; Temp 98.3(O); Pulse Ox 92% on 2 lpm NC; Weight 103.42 ca1 kg (R); Height 5 ft. 7 in. (170.18 cm) (R); 21:00 BP 110 / 62; Pulse 88; Resp 18; Pulse Ox 95% on 2 lpm NC; mg2 22:44 BP 105 / 63; Pulse 87; Resp 18; Temp 98.4; Pulse Ox 95% on R/A; mg2 23:45 BP 102 / 65; Pulse 88; Resp 18; Pulse Ox 98% on 2 lpm NC; mg2 03/05 01:21 BP 107 / 70; Pulse 82; Resp 18; Temp 98.5; Pulse Ox 98% on R/A; mg2 03/04 19:58 Body Mass Index 35.71 (103.42 kg, 170.18 cm) ca1 ED Course: 03/04 19:47 Patient arrived in ED. fj1 20:06 Triage completed. ca1 20:07 Arm band placed on right wrist. ca1 20:39 EKG done, by ED staff, reviewed by Norberto Downey MD. ds4 20:44 Robert Gilmore, RN is Primary Nurse. mg2 20:57 Norberto Downey MD is Attending Physician. oscra 21:00 Inserted saline lock: 20 gauge in left wrist, using aseptic technique. Blood collected. ds4 22:00 Patient has correct armband on for positive identification. Door closed. Warm blanket mg2 given. 22:27 Chest Pa And Lat (2 Views) XRAY In Process Unspecified. EDMS 03/05 01:22 No provider procedures requiring assistance completed. IV discontinued, intact, mg2 bleeding controlled, No redness/swelling at site. Pressure dressing applied. 10:33 Health Dept called/ COVID swab sent to lab/ PUI # [id number]/ lab notified. eb Administered Medications: 03/04 22:43 Drug: NS 0.9% 500 ml Route: IV; Rate: bolus; Site: left forearm; mg2 05/03 00:04 Follow up: Response: No adverse reaction; IV Status: Completed infusion; IV Intake: mg2 500ml 03/04 22:43 Drug: Rocephin 1 grams Route: IV; Rate: per protocol; Site: left forearm; mg2 03/05 00:04 Follow up: Response: No adverse reaction; IV Status: Completed infusion mg2 03/04 22:43 Drug: Zithromax 500 mg Route: IVPB; Infused Over: 1 hrs; Site: left forearm; mg2 03/05 00:03 Follow up: Response: No adverse reaction; IV Status: Completed infusion mg2 00:12 Drug: D50W 25 ml Route: IVP; Site: left forearm; mg2 00:39 Follow up: Response: No adverse reaction; Blood sugar is elevated mg2 01:15 Drug: Bactrim (160 mg-800 mg (DS) 1 tablet Route: PO; mg2 01:21 Follow up: Response: No adverse reaction; Medication administered at discharge. mg2 Intake: 00:04 IV: 500ml; Total: 500ml. mg2 Outcome: 00:33 Discharge ordered by . oscar 01:22 Discharged to home via wheelchair. mg2 01:22 Condition: stable 01:22 Discharge instructions given to patient, Instructed on discharge instructions, follow up and referral plans. medication usage, Demonstrated understanding of instructions, follow-up care, medications, Prescriptions given X 2. 01:23 Patient left the ED. mg2 Addendum: 03/07/2020 10:03 Addendum: Other pt notified of negative COVID-19 swab results. Pt advised to continue d m5 to monitor symptoms, to remain in isolation until fever free for 72 hours without medication and to return to the ED if symptoms worsen. 10:06 Addendum: Culture Results: Positive urine culture. No further action required. Bacteria d m5 sensitive to prescribed antibiotic. Signatures: Dispatcher [employer] EDMS Lillie Alexander RN RN fang5 Norberto Downey MD MD cha Swanson, Donovan ds4 Jalyn Villanueva Michele, RN RN mg2 Daija Stanley RN RN ca1 Maury Murguia fj
--- NOTE | 2020-03-05 00:34 | EDPHYS ---
Physician Documentation [facility] Name: Abdirashid Damon Age: 74 yrs Sex: Male : 1945 Arrival Date: 03/04/2020 Time: 19:47 Bed 16 Private MD: CATRACHITA Physician Norberto Downey HPI: 03/04 21:18 This 74 yrs old Male presents to ER via Wheelchair with complaints of oscar Breathing Difficulty, Fever. 21:18 The patient has shortness of breath with light activity. Onset: The symptoms/episode oscar began/occurred 2 day(s) ago. Duration: The symptoms are intermittent, with no pattern. The patient's shortness of breath is aggravated by nothing, is alleviated by nothing. Associated signs and symptoms: Pertinent positives: non-productive cough, fever. Severity of symptoms: At their worst the symptoms were mild in the emergency department the symptoms are unchanged. The patient has experienced similar episodes in the past, a few times. Historical: - Allergies: 20:07 Ciprofloxacin; ca1 20:07 PENICILLINS; ca1 - PMHx: 20:07 Diabetes - IDDM; Hyperlipidemia; Hypertension; ca1 - PSHx: 20:07 Cholecystectomy; Tonsillectomy; bladder cancer; ca1 - Immunization history:: Adult Immunizations up to date, Pneumococcal vaccine is up to date, Flu vaccine is up to date. - Social history:: Smoking status: Patient denies any tobacco usage or history of. ROS: 21:19 Eyes: Negative for injury, pain, redness, and discharge, ENT: Negative for injury, oscar pain, and discharge, Neck: Negative for injury, pain, and swelling, Cardiovascular: Negative for chest pain, palpitations, and edema, Abdomen/GI: Negative for abdominal pain, nausea, vomiting, diarrhea, and constipation, Back: Negative for injury and pain, : Negative for injury, bleeding, discharge, and swelling, MS/Extremity: Negative for injury and deformity, Skin: Negative for injury, rash, and discoloration, Neuro: Negative for headache, weakness, numbness, tingling, and seizure, Psych: Negative for depression, anxiety, suicide ideation, homicidal ideation, and hallucinations, Allergy/Immunology: Negative for hives, rash, and allergies, Endocrine: Negative for neck swelling, polydipsia, polyuria, polyphagia, and marked weight changes, Hematologic/Lymphatic: Negative for swollen nodes, abnormal bleeding, and unusual bruising. 21:19 Constitutional: Positive for body aches, chills, fatigue, fever, malaise. 21:19 Respiratory: Positive for cough, shortness of breath. Exam: 21:19 Constitutional: This is a well developed, well nourished patient who is awake, alert, oscar and in no acute distress. Head/Face: Normocephalic, atraumatic. Eyes: Pupils equal round and reactive to light, extra-ocular motions intact. Lids and lashes normal. Conjunctiva and sclera are non-icteric and not injected. Cornea within normal limits. Periorbital areas with no swelling, redness, or edema. ENT: Nares patent. No nasal discharge, no septal abnormalities noted. Tympanic membranes are normal and external auditory canals are clear. Oropharynx with no redness, swelling, or masses, exudates, or evidence of obstruction, uvula midline. Mucous membranes moist. Neck: Trachea midline, no thyromegaly or masses palpated, and no cervical lymphadenopathy. Supple, full range of motion without nuchal rigidity, or vertebral point tenderness. No Meningismus. Chest/axilla: Normal chest wall appearance and motion. Nontender with no deformity. No lesions are appreciated. Cardiovascular: Regular rate and rhythm with a normal S1 and S2. No gallops, murmurs, or rubs. Normal PMI, no JVD. No pulse deficits. Respiratory: Lungs have equal breath sounds bilaterally, clear to auscultation and percussion. No rales, rhonchi or wheezes noted. No increased work of breathing, no retractions or nasal flaring. Abdomen/GI: Soft, non-tender, with normal bowel sounds. No distension or tympany. No guarding or rebound. No evidence of tenderness throughout. Back: No spinal tenderness. No costovertebral tenderness. Full range of motion. Skin: Warm, dry with normal turgor. Normal color with no rashes, no lesions, and no evidence of cellulitis. MS/ Extremity: Pulses equal, no cyanosis. Neurovascular intact. Full, normal range of motion. Neuro: Awake and alert, GCS 15, oriented to person, place, time, and situation. Cranial nerves II-XII grossly intact. Motor strength 5/5 in all extremities. Sensory grossly intact. Cerebellar exam normal. Normal gait. Psych: Awake, alert, with orientation to person, place and time. Behavior, mood, and affect are within normal limits. 21:19 Respiratory: the patient does not display signs of respiratory distress, Respirations: normal, Breath sounds: decreased breath sounds, Respiratory rate: 20 03/05 00:12 ECG was reviewed by the Attending Physician. oscar 00:34 Musculoskeletal/extremity: Exam is negative for acute changes, Extremities: all appear oscar grossly normal, with no appreciated pain with palpation, ROM: no acute changes, Circulation is intact in all extremities. Sensation intact. Compartment Syndrome exam of affected extremity: is normal. DVT Exam: No signs of deep vein thrombosis. no pain, no swelling, no tenderness, negative Homans' sign noted on exam, no appreciated bluish discoloration, no erythema, no increased warmth. Vital Signs: 03/04 19:58 BP 110 / 60; Pulse 94; Resp 20 S; Temp 98.3(O); Pulse Ox 92% on 2 lpm NC; Weight 103.42 ca1 kg (R); Height 5 ft. 7 in. (170.18 cm) (R); 21:00 BP 110 / 62; Pulse 88; Resp 18; Pulse Ox 95% on 2 lpm NC; mg2 22:44 BP 105 / 63; Pulse 87; Resp 18; Temp 98.4; Pulse Ox 95% on R/A; mg2 23:45 BP 102 / 65; Pulse 88; Resp 18; Pulse Ox 98% on 2 lpm NC; mg2 03/05 01:21 BP 107 / 70; Pulse 82; Resp 18; Temp 98.5; Pulse Ox 98% on R/A; mg2 03/04 19:58 Body Mass Index 35.71 (103.42 kg, 170.18 cm) ca1 MDM: 03/04 20:58 Patient medically screened. oscar 21:20 Data reviewed: vital signs, nurses notes, lab test result(s), EKG, radiologic studies, [facility] plain films. 21:20 Differential diagnosis: Bronchitis CHF exacerbation, viral Infection, bacterial oscar infection, URI, bronchitis, pneumonia UTI, pneumonia, pulmonary edema, reactive airway disease. Antibiotic administration:. Data interpreted: awake overnight monitor: rate is 94 beats/min, Pulse oximetry: on room air is 92 %. 03/05 00:07 Differential Diagnosis sepsis, flu. The patient's [place] Deep Vein Thrombosis Score was oscar calculated as follows: Total Score: 0-2 Pts- Low Risk. The patient's pulmonary embolism risk score was calculated as follows: No Risks (0 Pts). Immunization status: Pneumococcal vaccine: Influenza vaccine: Test interpretation: by ED physician or midlevel provider: ECG. 00:08 ED course: labs reviewed, discussed, cough and uti. [facility] 00:35 Counseling: I had a detailed discussion with the patient and/or guardian regarding: the [facility] historical points, exam findings, and any diagnostic results supporting the discharge/admit diagnosis, lab results, radiology results, the need for outpatient follow up, for definitive care, to return to the emergency department if symptoms worsen or persist or if there are any questions or concerns that arise at home. ED course: flu, strep neg, pt stable and understands plan and need to follow up. 03/04 21:17 Order name: CBC with Diff [facility] 03/04 21:17 Order name: Comprehensive Metabolic Panel; Complete Time: 00:03 [facility] 03/04 21:17 Order name: Urine Culture [facility] 03/04 21:17 Order name: Flu; Complete Time: 00:33 [facility] 03/04 21:17 Order name: COVID-19 [facility] 03/04 21:17 Order name: Strep; Complete Time: 00:33 [facility] 03/04 21:17 Order name: Chest Pa And Lat (2 Views) XRAY [facility] 03/04 21:17 Order name: Blood Culture Adult (2) [facility] 03/04 21:17 Order name: Procalcitonin; Complete Time: 00:03 [facility] 03/04 21:17 Order name: Lactate; Complete Time: 00:03 [facility] 03/04 21:18 Order name: CBC with Automated Diff; Complete Time: 23:23 [facility] 03/04 22:52 Order name: Urine Dipstick--Ancillary (enter results); Complete Time: 23:23 co 03/05 00:33 Order name: Throat Culture [facility] 03/04 21:00 Order name: EKG - Nurse/Tech; Complete Time: 21:00 [facility] 03/04 21:00 Order name: EKG; Complete Time: 21:01 lp 03/04 21:17 Order name: Urine Dipstick-Ancillary (obtain specimen); Complete Time: 22:44 [facility] 03/05 00:04 Order name: Diet Regular; Complete Time: 00:05 oscar EC:12 Rate is 87 beats/min. Rhythm is regular. QRS Caspian is Normal. LA interval is normal. QRS oscar interval is prolonged. QT interval is normal. No Q waves. T waves are Normal. No ST changes noted. Clinical impression: NSR w/ Non-specific ST/T Changes. Interpreted by me. Reviewed by me. Administered Medications: 03/04 22:43 Drug: NS 0.9% 500 ml Route: IV; Rate: bolus; Site: left forearm; mg2 03/05 00:04 Follow up: Response: No adverse reaction; IV Status: Completed infusion; IV Intake: mg2 500ml 03/04 22:43 Drug: Rocephin 1 grams Route: IV; Rate: per protocol; Site: left forearm; mg2 03/05 00:04 Follow up: Response: No adverse reaction; IV Status: Completed infusion mg2 03/04 22:43 Drug: Zithromax 500 mg Route: IVPB; Infused Over: 1 hrs; Site: left forearm; mg2 03/05 00:03 Follow up: Response: No adverse reaction; IV Status: Completed infusion mg2 00:12 Drug: D50W 25 ml Route: IVP; Site: left forearm; mg2 00:39 Follow up: Response: No adverse reaction; Blood sugar is elevated mg2 01:15 Drug: Bactrim (160 mg-800 mg (DS) 1 tablet Route: PO; mg2 01:21 Follow up: Response: No adverse reaction; Medication administered at discharge. mg2 Disposition: 03/05/20 00:33 Discharged to Home. Impression: Fever, unspecified, Acute upper respiratory infection, unspecified, Urinary tract infection, site not specified, Type 1 diabetes mellitus, Hypoglycemia, unspecified, Hypokalemia, Pleural effusion in conditions classified elsewhere - small left. - Condition is Fair. - Discharge Instructions: Potassium Content of Foods, Fever, Adult, Hypoglycemia, Upper Respiratory Infection, Adult, Urinary Tract Infection, Adult, Cool Mist Vaporizer, Urinary Tract Infection, Adult, [id number], Cough, Adult, Hypoglycemia, Rbnn-[id number], Type 1 Diabetes Mellitus, Self Care, Adult, Type 1 Diabetes Mellitus, Diagnosis, Adult, [id number]-[id number], Type 1 Diabetes Mellitus, Self Care, Adult, [id number]. - Prescriptions for Keflex 500 mg Oral Capsule - take 1 capsule by ORAL route every 6 hours for 10 days; 40 capsule. Bactrim DS 800- 160 mg Oral Tablet - take 1 tablet by ORAL route every 12 hours for 7 days; 14 tablet. - Medication Reconciliation Form, Thank You Letter, Antibiotic Education, Prescription Opioid Use form. - Follow up: Private Physician; When: 2 - 3 days; Reason: Recheck today's complaints, Continuance of care, Re-evaluation by your physician. - Problem is new. - Symptoms have improved. Signatures: Dispatcher [employer] EDMN Norberto Downey MD MD cha Pena, Laura RN RN lp1 Robert Gilmore RN RN mg2 Daija Stanley RN RN ca1 Corrections: (The following items were deleted from the chart) 01:23 00:33 03/05/2020 00:33 Discharged to Home. Impression: Fever, unspecified; Acute upper mg2 respiratory infection, unspecified; Urinary tract infection, site not specified; Type 1 diabetes mellitus; Hypoglycemia, unspecified; Hypokalemia; Pleural effusion in conditions classified elsewhere - small left. Condition is Fair. Discharge Instructions: Fever, Adult, Upper Respiratory Infection, Adult, Urinary Tract Infection, Adult, Cool Mist Vaporizer, Urinary Tract Infection, Adult, [id number], Cough, Adult, Type 1 Diabetes Mellitus, Self Care, Adult, Type 1 Diabetes Mellitus, Diagnosis, Adult, Okxe-ql-Rlsx, Type 1 Diabetes Mellitus, Self Care, Adult, Ymso-cd-Dkmv, Potassium Content of Foods, Hypoglycemia, Hypoglycemia, Uoyr-sc-Ckhg. Prescriptions for Keflex 500 mg Oral Capsule - take 1 capsule by ORAL route every 6 hours for 10 days; 40 capsule, Bactrim DS 800-160 mg Oral Tablet - take 1 tablet by ORAL route every 12 hours for 7 days; 14 tablet. and Forms are Medication Reconciliation Form, Thank You Letter, Antibiotic Education, Prescription Opioid Use. Follow up: Private Physician; When: 2 - 3 days; Reason: Recheck today's complaints, Continuance of care, Re-evaluation by your physician. Problem is new. Symptoms have improved. oscar
[2020-03-05] MEDS ORDERED: SMZ./TMP. 800/160 MG TABLET ONE (00:59)
[2020-03-05 02:32] VITALS: BP 107/70; TEMP 98.5; O2SAT 98
--- NOTE | 2020-03-05 13:03 | RAD REPORT ---
EXAM DESCRIPTION: Chest Pa And Lat (2 Views) CLINICAL HISTORY: COUGH COMPARISON: 02/07/2020. TECHNIQUE: XR CHEST 2 VIEWS 03/04/2020 9:17 PM CDT FINDINGS: The heart is mildly enlarged. 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 Lungs are clear without consolidation, atelectasis, mass or edema. There is a small left pleural effusion. There is no IMPRESSION: Left pleural effusion. No definite pneumonia. Electronically signed by: Joey Guerrero MD 03/04/2020 11:51 PM CDT Due to temporary technical issues with the PACS/Fluency reporting system, reports are being signed by the in house radiologist as a courtesy to ensure prompt reporting. The interpreting radiologist is f ully responsible for the content of the report.
--- NOTE | 2020-03-06 10:54 | EKG ---
Test Date: 2020-03-04 Test Time: 20:33:16 Facilities Painter: GALLO MEASUREMENT RESULTS: Intervals: Rate: 87 ND: 170 QRSD: 124 QT: 372 QTc: 447 [place]: P: 57 ND: 170 QRS: -38 T: 110 INTERPRETIVE STATEMENTS: Normal sinus rhythm Left axis deviation Nonspecific intraventricular conduction delay ST & T wave abnormality, consider lateral ischemia Abnormal ECG Compared to ECG 03/02/2017 08:47:48 Left-axis deviation now present Intraventricular conduction delay now present ST (T wave) deviation now present Possible ischemia now present Electronically Signed On 03-06-20 10:49:28 CDT by Tom Vazquez
== END 2020-03-05 01:23 | disposition home or self-care (01) ==
LOC: ER 19:44
DX: J06.9 Acute upper respiratory infection, unspecified (principal); Z20.828 Contact with and (suspected) exposure to other viral communicable diseases; N39.0 Urinary tract infection, site not specified; E10.649 Type 1 diabetes mellitus with hypoglycemia without coma; E87.6 Hypokalemia; J91.8 Pleural effusion in other conditions classified elsewhere; I10 Essential (primary) hypertension; Z88.0 Allergy status to penicillin; Z88.1 Allergy status to other antibiotic agents; Z85.51 Personal history of malignant neoplasm of bladder
CPT/HCPCS: 93005; 87040 ×2; 87070; 87088; 85025; 87086; 36415; 82947; 87081; 83605; 81003; 80053; 84145; 87804 ×2; 71046; U0001; J0456; J0696; J7030; J7040; 87077; 87186; 96365; 96368; 96375; 99284